=== PATIENT | female | born 1955 | race Caucasian/White ===

== ENCOUNTER 2017-03-17 17:15 | Observation (INO) | payer OTHER ==
[~2017-03-17] VITALS: Ht 175.3 cm; Wt 112.6 kg
[~2017-03-17 17:15] MED LIST: ABILIFY10 MG PO; ATIVAN1 MG PO; CARVEDILOL25 MG PO; COMBIVENT RESPIM4 GM INH; CYMBALTA30 MG PO; CYMBALTA60 MG PO; DIAZEPAM5 MG PO; GABAPENTIN300 MG PO; GEODON80 MG NG; GEODON80 MG PO; IPRATROPIU0.2 MG/1 M INH; KETOROLAC TROME10 MG PO; LAMICTAL200 MG PO; LAMOTRIGINE100 MG PO; LEVAQUIN500 MG PO; LISINOPRIL10 MG PO; LORAZEPAM0.5 MG PO; LYRICA75 MG PO; MACROBID 100 M100 MG PO; METFORMIN HCL1000 MG PO; MINIPRESS2 MG PO; NAPROSYN375 MG PO; NORCO 5-325 TA1 EACH PO; OMEPRAZOLE40 MG PO; OSTERA TABLET1 EACH PO; PAIN RELIEF500 M1 PO; PREDNISONE20 MG PO; SUMATRIPTAN SU100 MG PO; VALIUM5 MG PO; VERAPAMIL ER180 MG PO; VITAMIN D250000 UNIT PO
[2017-03-17] MEDS ORDERED: DULOXETINE HCL40 MG PO (17:53)
[2017-03-17] MEDS ORDERED: ABILIFY30 MG PO (17:54)
[2017-03-17] MEDS ORDERED: MOBIC7.5 MG PO (17:55)
[2017-03-17] MEDS ORDERED: CALCIUM600 MG PO (17:57)
[2017-03-17] MEDS ORDERED: NORCO 7.5-3251 EACH (17:58)
[2017-03-17] MEDS ORDERED: CYCLOBENZAPRINE5 MG PO (17:58)
[2017-03-17] MEDS ORDERED: VITAMIN D250000 UNIT PO (17:59)
--- NOTE | 2017-03-17 23:32 | NUR ---
PT ADMITTED TO ROOM 122 FROM ER @ 2255, VIA STRETCHER, PT AWAKE, A&OX3 IVF INFUSING W/O PROBLEMS, PT COOP WITH ADMIT QUESTIONS AND ASSESSMENT.INDEPENDENT, ABLE TO TUNR W/O PROBLESM, RETURN DEMONSTRATION OF CALL LIGHT DONE CORRECTLY, MEDICATED WITH 1 NORCO AT THIS TIME PER GENERALIZED PAIN 09/20
--- NOTE | 2017-03-18 03:31 | NUR ---
PATIENT REPORTED HEADACHE, UNCHANGED BY PRN PAIN MEDS. MD CONTACTED TO REQUEST HOME MED FOR HEADACHES PER PATIENT REQUEST. NEW ORDER RECIEVED. VERIFIED USING READ BACK METHOD.
--- NOTE | 2017-03-18 04:00 | NUR ---
PATIENT REPORTS HEADACHE PAIN, 10/10. PATIENT IS RESTING IN BED, APPEARS COMFORTABLE, AND IS PLESANT. INFORMED PATIENT THAT THE MED SHE REQUESTED WAS APPROVED BY THE MD BUT NOT AVAILABLE IN THE HOSPITAL. PATIENT AGREED TO TAKE PRN TYLENOL AT THIS TIME.
--- NOTE | 2017-03-18 04:15 | NUR ---
VITALS DONE AND CHARTED. GOT A WARM BLANKET PER PT REQUEST. PT NEEDS NOTHING ELSE AT THIS TIME. CALL LIGHT AND BEDSIDE TABLE WITHIN REACH.
--- NOTE | 2017-03-18 04:50 | NUR ---
PATIENT REPORTED NAUSEA. COOL WASH CLOTH APPLIED TO NECK. EMESIS BAG PROVIDED. PRN ZOFRAN. NO EMESIS AT THIS TIME. CALL LIGHT IN REACH.
--- NOTE | 2017-03-18 05:35 | NUR ---
PATIENT ARRIVED TO THE FLOOR THIS AM. INDEPENDENT IN THE ROOM. AAOX3. REPORTS PAIN IN ABD AND HEAD, PRN PAIN MEDS GIVEN. CLEAR LIQUIDS. NAUSEA X1, NO EMESIS. PRN ZOFRAN PROVIDED. IV FLUIDS INFUSING, SITE WNL.
--- NOTE | 2017-03-18 06:01 | NUR ---
VITALS AND I&OS DONE AND CHARTED. WATER WAS REFILLED. PT NEEDS NOTHING ELSE AT THIS TIME. CALL LIGHT AND BEDSIDE TABLE IN REACH.
--- NOTE | 2017-03-18 06:10 | NUR ---
pt awake, watching tv, denies c/o low blood sugars, pt has not been eating well or nothing prior to admission, cbg done 95, 12 OZ orange juice given. Primary RN Audrey to be notified
--- NOTE | 2017-03-18 06:13 | NUR ---
PATIENT REPORTS FEELING HOT. TURNED TEMP IN ROOM DOWN AND OPENED DOOE. PATIENT IS AFEBRILE. PATIENT REPORTS PAIN IS MORE CONTROLLED AT THIS TIME, 8/10 IN HER HEAD AND STOMACH. NO NEEDS AT THIS TIME.
--- NOTE | 2017-03-18 06:28 | NUR ---
Pt c/o h/a, r hip/hands, back 10/21 pain. Medicated wtih 1 tab Surfside. watching tv, c/o being siaphoretic. skin dry, warm, not hot, no resdness or flushing of facial features/ C/o chills, no chills ors involuntary body tremors noted, Nurse in room for about 20 minutes assessing pt. Pt on room air. Primary RN Audrey to be notified. No further c/o migraine like sx, lights on in room
--- NOTE | 2017-03-18 07:10 | NUR ---
BEDSIDE HANDOFF REPORT RECEIVED FROM CUTTING MACHINE OPERATOR RN. PT RESTING IN BED, STATES PAIN IS BETTER AFTER PAIN PILL. PT REQUESTING IMATREX, DISCUSSED WITH PT. PT DENIES OTHER NEEDS AT THIS TIME.
--- NOTE | 2017-03-18 09:30 | NUR ---
PT RESTING IN BED. PT RATING PAIN 6/10 TO ABD, STATES IT HAS IMPROVED AFTER RECEIVING PAIN MEDICATION THIS AM. PT ON ROOM AIR, DENIES SOB. LUNG SOUNDS CLEAR. PT DENIES NAUSEA, TOLERATED CLEAR LIQUID BREAKFAST, BOWEL TONES ACTIVE. PT DENIES NUMBNESS AND TINGLING, CMS INTACT, WITHOUT EDEMA. DISCUSSED IMATREX WITH PT, PT DECLINING TO TAKE IT AT THIS TIME. PT IS AMBULATING INDEPENDENT IN ROOM. VOIDING QS. PT DENIES OTHER NEEDS AT THIS TIME.
--- NOTE | 2017-03-18 09:45 | NUR ---
PT ADVANCED TO FULL LIQUID DIET, REQUESTING MILK SHAKE. PT DENIES OTHER NEEDS AT THIS TIME.
[2017-03-18] MEDS ORDERED: IMITREX100 MG PO (10:06)
[2017-03-18] MEDS ORDERED: CYCLOBENZAPRINE5 MG PO (10:09)
[2017-03-18] MEDS ORDERED: HYDROCODON-ACE1 EAC8 PO (10:12)
--- NOTE | 2017-03-18 10:36 | NUR ---
MED REC COMPLETE WITH [facility] REFILL HISTORY.
--- NOTE | 2017-03-18 12:45 | NUR ---
PT RESTING IN BED. PT RATING PAIN 5/10 TO ABD, STATES TOLERABLE AT THIS ITME. PT TOLERATING FULL LIQUID DIET, ADVANCED TO REGULAR DIET, DISCUSSED WITH PT. PT ON ROOM AIR, LUNG SOUNDS CLEAR. IV FLUIDS INFUSING NS AT 125 ML/HR. PT CONTINUES TO BE INDEPENDENT IN ROOM. NO ACUTE CHANGES, PT DENIES NEEDS AT THIS TIME.
--- NOTE | 2017-03-18 13:15 | NUR ---
PT CALLED REQUESTING NURSE. PT REPORT OF WHAT SHE THOUGHT TO BE BLOOD IN HER STOOL, STATES IT WAS BRIGHT RED. HAT PLACED IN TOILET, INSTRUCTED TO NOT FLUSH BOWEL MOVEMENT IF SHE HAS ANOTHER ONE. NOTIFIED OF PT REPORT. WILL CONTINUE TO MONITOR.
--- NOTE | 2017-03-18 13:25 | NUR ---
PT CALLED, HAD SMALL BOWEL MOVEMENT. ASSESSED STOOL, LIGHT BROWN IN COLOR, LOSE WITH SMALL AMOUNT OF MUCUS, WITHOUT BRIGHT RED BLOOD. MD NOTIFIED, NO NEW ORDERS AT THIS TIME.
--- NOTE | 2017-03-18 16:45 | NUR ---
PT RESTIGN IN BED, FAMILY AT BEDSIDE. PT STATES PAIN HAS IMPROVED, COMPLAINT OF STOMACH ACHE AFTER EATING SANDWICH, STATES "I THINK THE GU WAS TOO HEAVEY". PT GIVEN SCHEDULED CARAFATE. PT BLOOD PRESSURE CHECKED, 98/58, PT STATES SHE DOES FEEL SLIGHLY DIZZY. PT ON ROOM AIR, LUNG SOUNDS CLEAR. PT DENIES OTHER NEEDS AT THIS TIME.
--- NOTE | 2017-03-18 18:27 | NUR ---
PT ON ROOM AIR, LUNG SOUNDS CLEAR. PT PAIN CONTROLLED WITH PRN NORCO. PT WITH NAUSEA THIS AFTERNOON, ZOFRAN GIVEN. PT ADVANCED TO REGULAR DIET. PT INDEPENDENT IN ROOM. NS INFUSING AT 125 ML/HR. VOIDING QS. POSSIBLE DISCHARGE TOMORROW.
--- NOTE | 2017-03-18 19:25 | NUR ---
BEDSIDE REPORT RECEIVED FROM AVTAR DUNAWAY. PT LYING IN BED, IVF INFUSING AT 125 ML/HR. PT REPORTS PAIN 6.25/10 AT THIS TIME, STATES THIS IS GOOD FOR HER. PT DENIES NAUSEA. CALL LIGHT GIVEN TO PT. PT'S LAMOTRIGINE TAKEN FROM BEDSIDE TABLE, DR. CEBALLOS NOTIFIED OF MED IN PT ROOM, PT REQUESTING TO TAKE THIS MED THIS EVENING, MD TO ORDER. MEDICATION IN PT'S BIN.
--- NOTE | 2017-03-18 19:55 | NUR ---
DR. CEBALLOS IN PT ROOM ASSESSING PT.
--- NOTE | 2017-03-18 19:58 | NUR ---
Dr Simpson in room examining pt. IVF dc'd at this time as per MDs orders. Pt medicated wtih 1 Tylenol 500mg po and dicyclomine hcl 20mg po c/o 10/21 abd pain
--- NOTE | 2017-03-18 20:04 | NUR ---
VERBAL ORDER FROM DR. CEBALLOS TO D/C PT'S IVF AT THIS TIME. FLUIDS STOPPED.
--- NOTE | 2017-03-18 20:11 | NUR ---
NURSE IN ROOM
[2017-03-18] MEDS ORDERED: DICYCLOMINE HCL10 MG PO (20:23)
[2017-03-18] MEDS ORDERED: FAMOTIDINE20 MG PO ×2 (20:25→20:26)
[2017-03-18] MEDS ORDERED: SUCRALFATE1 GM/10 ML PO (20:27)
[2017-03-18] MEDS ORDERED: LAMICTAL200 MG PO (20:30)
--- NOTE | 2017-03-18 22:30 | NUR ---
ANSWERED PT CALL LIGHT, PT REPORTING EAR ACHE, PAIN IN RLQ, REQUESTING PAIN MEDICATIONS. RN RAMÓN TO ADMINISTER PRN NORCO PO AT THIS TIME.
--- NOTE | 2017-03-18 22:41 | EKG ---
[facility] [address] [place] [address] Signed Normal sinus rhythm Normal ECG No previous ECGs available Confirmed by OMER CEBALLOS MD ([id number]) on 03/18/2017 10:41:02 PM Electronically Signed By: OMER CEBALLOS MD 03/18/17 2241 PATIENT NAME: LOCKWOODTMIN Electrocardiogram DATE OF : 53 PHYSICIAN: OMER CEBALLOS MD REPORT #: [id number] REPORT IS CONFIDENTIAL AND NOT TO BE RELEASED WITHOUT AUTHORIZATION
--- NOTE | 2017-03-18 23:00 | NUR ---
PT ASSESSMENT COMPLETE. EXPIRATORY WHEEZE HEARD BILATERALLY LOWER LUNGS. PT COMPLAINS OF 8/10 PAIN IN RLQ, AND 5/10 EAR ACHE. NORCO PO PRN HAS BEEN ADMINISTERED. PT IS ALERT, AND ORIENTED, DENIES NAUSEA AT THIS TIME. PT GIVEN SNACK OF SUGAR FREE JELLO, ICE WATER. CALL LIGHT IN REACH. PT PLEASANT AND WITH NO ADDITIONAL REQUESTS.
--- NOTE | 2017-03-19 00:44 | NUR ---
PT SLEEPING, EYES CLOSED, RR 12. CALL LIGHT IN REACH.
--- NOTE | 2017-03-19 02:23 | NUR ---
BROUGHT PT ICED COFFEE REQUESTED, SPO2 AT 98%, PT HAS NO ADDITIONAL REQUESTS AT THIS TIME, SITTING UP IN BED, CALL LIGHT IN REACH.
--- NOTE | 2017-03-19 02:30 | NUR ---
CHECKED ON PT, PT SLEEPING, EYES CLOSED, VISIBLE CHEST RISE. CALL LIGHT NEXT TO PT.
--- NOTE | 2017-03-19 03:04 | NUR ---
ANSWERED PT CALL LIGHT, PT REPORTING 7.5-8/10 KAUR. ADMINISTERED PRN TYLENOL 500 MG PO, BROUGHT PT FRESH ICE WATER. PT ASSESSMENT COMPLETE. PT'S LUNGS SOUND CLEAR THROUGHOUT ALL LOBES, NO WHEEZES HEARD. PT ON ROOM AIR, AWAKE, TEXTING FRIEND. PT DENIES NAUSEA. CONTINUES TO HAVE PAIN IN RLQ, TENDER AND GUARDED. BOWEL TONES ARE ACTIVE THROUGHOUT ABDOMEN. URINE HAT EMPTIED. CALL LIGHT IN REACH. PT REQUESTS LIGHTS TO BE ON.
--- NOTE | 2017-03-19 04:33 | NUR ---
ANSWERED CALL LIGHT, PT REPORTING PAIN IN HIP AND STOMACH, BROUGHT PT ICE PACK NORCO PRN NOT AVAILABLE AT THIS TIME. PT VERBALIZED UNDERSTANDING. CALL LIGHT IN REACH.
--- NOTE | 2017-03-19 05:09 | NUR ---
ANSWERED CALL LIGHT, PT REPORTS PAIN 9/10 IN RIGHT HIP. PT STATES PAIN IS CHRONIC. ADMINISTERED PRN NORCO PO, GAVE PT MORE ICE WATER. PT HAS NO ADDITIONAL REQUESTS, WILL CONTINUE TO MONITOR. CALL LIGHT IN REACH.
--- NOTE | 2017-03-19 05:23 | NUR ---
ANSWERED PT CALL LIGHT, ADMINISTERED PRN BENTYL FOR STOMACH DISCOMFORT, EDUCATION PROVIDED. PT HAS NO ADDITIONAL REQUESTS AT THIS TIME, CALL LIGHT IN REACH.
--- NOTE | 2017-03-19 05:52 | NUR ---
PT SLEPT AT START OF SHIFT, AWAKE FOR MOST OF SUPERVISOR RECORD PRESS HOURS. PT HAS REQUESTED PRN PAIN MEDICATIONS THROUGHOUT SHIFT FOR HIP PAIN, EAR ACHE, HEAD ACHE, AND ABD PAIN RECEIVING PRN NORCO, PRN BENTYL, AND PRN TYLENOL. PT HAS DENIED NAUSEA. LUNGS HAVE SOUNDED CLEAR THIS MORING, WHEEZES HEARD AT START OF SHIFT BILATERALLY IN BASES. PT SALINE LOCKED. SUFFICIENT URINE OUTPUT.
--- NOTE | 2017-03-19 06:21 | NUR ---
IN PT ROOM FOR MULTICRAFT OPERATOR, PT REPORTS PAIN 6/10 IN ABD, HIP, "IMPROVED". PT HAS NO ADDITIONAL REQUESTS AT THIS TIME. CALL LIGHT IN REACH.
--- NOTE | 2017-03-19 07:15 | NUR ---
BEDSIDE HANDOFF REPORT RECEIVED FROM SAMPLE SEWER RN. PT RESTING IN BED. PT REQUESTING FRESH WATER, PROVIDED. PT SALINE LOCKED. PT ON ROOM AIR. PT DENIES NEEDS AT THIS TIME.
--- NOTE | 2017-03-19 08:30 | NUR ---
PT COMPLAINT OF MIGRAINE, REQUESTIN IMITREX, NO ORDER, CALLED, TELEPHONE ORDER FOR 100 MG IMITREX PO ONCE. PT ON ROOM AIR, LUNG SOUNDS CLEAR. PT TOLERATING REGUALR DIET, DENIES NAUSEA, DISCUSSED DIET AND CURRENT ILLNESS. PT UP INDEPENDENT IN ROOM. PT BLOOD PRESSURE LOW 98/58, VERAPAMIL HELD, NOTIFIED. PT COMPLAINT OF SLIGHT DIZZINESS, HAS HAD RECENTLY, DISCUSSED WITH PT NEED TO FOLLOW UP WITH PCP ABOUT BLOOD PRESSURE MEDICATIONS. BOWEL TONES ACTIVE. PT WITHOUT EDEMA, CMS INTACT. PT DENIES OTHER NEEDS AT THIS TIME. DISCUSSED DISCHARGE THIS AM, PT CALLING FOR [facility]IDE.
--- NOTE | 2017-03-19 10:08 | NUR ---
PT COMPLAINT OF NAUSEA, PT STATES SHE THINKS IT MAY BE RELATED TO MIGRAINE HEADAHCE. IV ZOFRAN GIVEN. PT CALLED [facility]IDE FOR DISCHARGE.
--- NOTE | 2017-03-19 10:30 | NUR ---
DISCHARGE INSTRUCTIONS COMPLETED WITH PT. IV CATH REMOVED. PT REQUESTING PAIN MEDICATION, RATING PAIN 7/10, GIVEN 1 TAB NORCO.
--- NOTE | 2017-03-19 10:36 | NUR ---
PT'S VITALS WERE TAKEN AND PT WAS DISCHARGED TO HOME.
== END 2017-03-19 10:35 | disposition home or self-care (01) ==
LOC: ED 17:15 → MS 17:16
PROVIDERS: ADMIT Internal Medicine
DX: K29.80 Duodenitis without bleeding (principal); T39.395A Adverse effect of other nonsteroidal anti-inflammatory drugs [NSAID], initial encounter; E86.0 Dehydration; I10 Essential (primary) hypertension; E11.9 Type 2 diabetes mellitus without complications; F25.0 Schizoaffective disorder, bipolar type; F41.9 Anxiety disorder, unspecified; M79.7 Fibromyalgia; E87.2 Acidosis; M54.9 Dorsalgia, unspecified; G89.29 Other chronic pain; Z88.8 Allergy status to other drugs, medicaments and biological substances; Z79.84 Long term (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 of oral 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 drugs; Z79.891 Long term (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 of opiate analgesic; Z79.899 Other long term (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
CPT/HCPCS: 71045; 74177; 80053; 81001; 82803; 83605; 83690; 84484; 85025; 85610; 93005; 93010; 96361; 96365; 96372; 96375; 96376; 99285; G0378; J1650; J2405; J2543; J3010; J7030; Q9967

== ENCOUNTER 2017-11-09 01:14 | Emergency (ER) | payer OTHER ==
[~2017-11-09] VITALS: Ht 175.3 cm; Wt 112.5 kg
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
--- OUTSIDE RECORDS SUMMARY | ~2017-11-09 | XMS | Clinical Summary ---
Demographics + + + | Address | [address] | | | [place] [address] | + + + | Home Phone | | + + + | Preferred Language | Unknown | + + + | Marital Status | Single | + + + | Jew Affiliation | Unknown | + + + | Race | Unknown | + + + | Ethnic Group | Unknown | + + + Author + + + | Author | [facility] | + + + | Organization | [facility] | + + + | Address | Unknown | + + + | Phone | Unavailable | + + + Support + + +---------+ + | Name | Relationship | Address | Phone | + + +---------+ + | Christina Muhammad | ECON | Unknown | | + + +---------+ + Care Team Providers + +------+ + | Care District Branch Manager Name | Role | Phone | + +------+ + | Wicho Starkey MD | PP | Unavailable | + +------+ + Allergies No Known Allergies Current Medications + + +-------+---------+------+------+-------+ | Prescription | Sig. | Disp. | Refills | Star | End | Statu | | | | | | t | Date | s | | | | | | Date | | | + + +-------+---------+------+------+-------+ | carvedilol (COREG) | Take 25 mg by mouth | | | | | Activ | | 25 MG tablet | 2 (two) times daily | | | | | e | | | with meals. | | | | | | + + +-------+---------+------+------+-------+ | cetirizine | Take 5 mg by mouth | | | | | Activ | | (ZYRTEC) 5 MG tablet | daily. | | | | | e | + + +-------+---------+------+------+-------+ | duloxetine | Take 60 mg by mouth | | | | | Activ | | (CYMBALTA) 60 MG | daily. | | | | | e | | capsule | | | | | | | + + +-------+---------+------+------+-------+ | doxazosin | Take 1 mg by mouth | | | | | Activ | | (CARDURA) 1 MG | nightly. | | | | | e | | tablet | | | | | | | + + +-------+---------+------+------+-------+ | estradiol | Take 1 mg by mouth | | | | | Activ | | (ESTRACE) 1 MG | daily. | | | | | e | | tablet | | | | | | | + + +-------+---------+------+------+-------+ | IRON PO | Take 300 mg by mouth | | | | | Activ | | | daily. | | | | | e | + + +-------+---------+------+------+-------+ | ziprasidone | Take 80 mg by mouth | | | | | Activ | | (GEODON) 80 MG | daily with | | | | | e | | capsule | breakfast. | | | | | | + + +-------+---------+------+------+-------+ | ziprasidone | Take 160 mg by mouth | | | | | Activ | | (GEODON) 80 MG | nightly. | | | | | e | | capsule | | | | | | | + + +-------+---------+------+------+-------+ | lamotrigine | Take 200 mg by mouth | | | | | Activ | | (LAMICTAL) 200 MG | 2 (two) times | | | | | e | | tablet | daily. | | | | | | + + +-------+---------+------+------+-------+ | metformin | Take 1,000 mg by | | | | | Activ | | (GLUCOPHAGE) 1000 MG | mouth 2 (two) times | | | | | e | | tablet | daily with meals. | | | | | | + + +-------+---------+------+------+-------+ | naproxen | Take 375 mg by mouth | | | | | Activ | | (NAPROSYN) 375 MG | 2 (two) times daily | | | | | e | | tablet | with meals. | | | | | | + + +-------+---------+------+------+-------+ | omeprazole | Take 20 mg by mouth | | | | | Activ | | (PRILOSEC) 20 MG | daily. | | | | | e | | capsule | | | | | | | + + +-------+---------+------+------+-------+ | | Take 1 tablet by | | | | | Activ | | hydrocodone-acetamin | mouth every 4 (four) | | | | | e | | ophen (VICODIN) | hours as needed. | | | | | | | 5-500 MG per tablet | | | | | | | + + +-------+---------+------+------+-------+ | | Take 1 tablet by | | | | | Activ | | HYDROcodone-acetamin | mouth every 6 (six) | | | | | e | | ophen (NORCO) 5-325 | hours as needed for | | | | | | | MG per tablet | Pain. | | | | | | + + +-------+---------+------+------+-------+ | ARIPiprazole | Take 10 mg by mouth | | | | | Activ | | (ABILIFY) 10 MG | daily. | | | | | e | | tablet | | | | | | | + + +-------+---------+------+------+-------+ Active Problems + + + | Problem | Noted Date | + + + | Paranoid schizophrenia, chronic condition | 11/11/2011 | + + + | Bipolar disorder, unspecified | 11/11/2011 | + + + | Seizure disorder (HCC) | 11/11/2011 | + + + | Methamphetamine abuse | 11/11/2011 | + + + | NSTEMI (non-ST elevated myocardial infarction) | 11/11/2011 | + + + | Hyposmolality and/or hyponatremia | 11/11/2011 | + + + | Leucocytosis | 11/11/2011 | + + + | Old myocardial infarction | 11/11/2011 | + + + + + | Overview: NSTEMI associated with methamphetamine abuse, | | nuclear stress test negative | + + + +---+ | Cardiac murmur, previously undiagnosed | | + +---+ | Lumbar spinal stenosis | | + +---+ | Hypertension | | + +---+ | Fibromyalgia | | + +---+ Family History + + +------+ + | Medical History | Relation | Name | Comments | + + +------+ + | Seizures | Daughter | | | + + +------+ + | Stroke | Daughter | | questionable | + + +------+ + | Heart attack | Father | | | + + +------+ + | Cancer | Mother | | | + + [...] + + | Father | | | MD | | | | (Age | | | | | 65) | | + +------+ + + | Mother | | | cancer, type unknown | | | | (Age | | | | | 72) | | + +------+ + + | Sister | | Alive | | + +------+ + + | Son | | Alive | | + +------+ + + Social History + +-------+ +--------+ + | Tobacco Use | Types | Packs/Day | Years | Date | | | | | Used | | + +-------+ +--------+ + | Former Smoker | | 1 | 20 | Quit: 01/31/2014 | + +-------+ +--------+ + + +---+---+---+ | Smokeless Tobacco: | | | | | Never Used | | | | + +---+---+---+ + + | Tobacco Cessation: Ready to Quit: No | + + + + +---------+ + | Alcohol Use | Drinks/We | oz/Week | Comments | | | ek | | | + + +---------+ + | No | | | | + + +---------+ + + + + | Sex Assigned at | Date Recorded | | | | + + + | Not on file | | + + + Last Filed Vital Signs + + + + | Vital Sign | Reading | Time Taken | + + + + | Blood Pressure | 104/66 | 04/09/2014 10:19 AM PST | + + + + | Pulse | 77 | 04/09/2014 10:19 AM PST | + + + + | Temperature | 36.6 C (97.9 F) | 11/12/2011 11:44 AM PDT | + + + + | Respiratory Rate | 18 | 11/12/2011 11:44 AM PDT | + + + + | Oxygen Saturation | 94% | 04/09/2014 10:19 AM PST | + + + + | Inhaled Oxygen | - | - | | Concentration | | | + + + + | Weight | 102.5 kg (226 lb) | 04/09/2014 10:19 AM PST | + + + + | Height | 175.3 cm (5' 9") | 04/09/2014 10:19 AM PST | + + + + | Body Mass Index | 33.37 | 04/09/2014 10:19 AM PST | + + + + Plan of Treatment + + + + + | Health Maintenance | Due Date | Last Done | Comments | + + + + + | Vaccine: | | | | | Dtap/Tdap/Td (1 - | 4 | | | | Tdap) | | | | + + + + + | Cervical Cancer | | | | | Screening (Pap) | 5 | | | + + + + + | Vaccine: Zoster (1 | | | | | of 2) | 5 | | | + + + + + | Vaccine: Influenza | | | | | (#1) | 8 | | | + + + + + Results Not on filefrom Last 3 Months Insurance + +--------+ +------+-------+ + | Payer | Benefi | Subscriber | Type | Phone | Address | | | t Plan | ID | | | | | | / | | | | | | | Group | | | | | + +--------+ +------+-------+ + | MEDICAID | [place] | [id number] | | | [address] | | | N | | | | [place] | | | [place] | | | | [phone] | | | [employer] | | | | | + +--------+ +------+-------+ + + +--------+ +--------+ + + | Guarantor Name | Accoun | Relation to | Date | Phone | Billing Address | | | t Type | Patient | of | | | | | | | | | | + +--------+ +--------+ + + | LUZ MARIA LOCKWOOD | Person | Self [birth year] Home: | [address] [place] [address] | | | al/Fam | | 1956 | [phone] | [address] [place] | | | [place] | | | [phone] | [phone] | + +--------+ +--------+ + +
--- OUTSIDE RECORDS SUMMARY | ~2017-11-09 | XMS | Encounter Summary ---
Demographics + + + | Address | [address] [facility] [address] | | | [place] [address] | + + + | Home Phone [...] | [facility] | | | and [place] | [...] Providers + +------+ + | Care Assistant Grocery Name | Role | Phone | + +------+ + | Abimael Devlin MD | PCP | | + +------+ + Encounter Details +--------+ + + + + | Date | Type | Department | Care Team | Description | +--------+ + + + + | 10/17/ | [facility] | [facility] | Andre Caballero | Right hip pain | | 2018 | Encounter | [facility] | MD [address] | | | | | [address] | [place] | | | | | [place] | [address] | | | | | [address] | | | | | | [phone] | | | +--------+ + + + [...] + + + as of this encounter Medications at Time of Discharge + + +--------+---------+ + + | Medication | Sig. | Disp. | Refills | Start | End Date | | | | | | Date | | + + +--------+---------+ + + | albuterol (PROAIR | Inhale 2 puffs into | | | | | | HFA) 90 mcg/puff | the lungs every 6 | | | | | | inhaler | hours as needed for | | | | | | | Wheezing. | | | | | + + +--------+---------+ + + | ARIPiprazole | take 1 tablet by | | 0 | 10/05/19 | | | (ABILIFY) 30 MG | mouth once daily | | | 18 | | | tablet | | | | | | + + +--------+---------+ + + | cyclobenzaprine | | | 0 | 10/05/19 | | | (FLEXERIL) 5 MG | | | | 18 | | | tablet | | | | | | + + +--------+---------+ + + | dicyclomine | | | 0 | 10/05/19 | | | (BENTYL) 10 mg | | | | 18 | | | capsule | | | | | | + + +--------+---------+ + + | dicyclomine | Take 20 mg by mouth | | | | | | (BENTYL) 20 MG | every 6 hours. | | | | | | tablet | | | | | | + + +--------+---------+ + + | DULoxetine | One capsule by mouth | | | 08/20/19 | | | (CYMBALTA) 60 MG | once daily | | | 12 | | | capsule | | | | | | + + +--------+---------+ + + | DULoxetine | | | 0 | 10/17/19 | | | (IRENKA) [address] | | | | 18 | | | capsule | | | | | | + + +--------+---------+ + + | ergocalciferol | Take 50,000 Units by | | 0 | 07/29/19 | | | (VITAMIN D-2) 50,000 | mouth Once a week. | | | 16 | | | units capsule | | | | | | + + +--------+---------+ + + | | take 1 tablet by | | 0 | 09/16/19 | | | hydroCHLOROthiazide | mouth once daily IN | | | 18 | | | 25 mg tablet | THE MORNING | | | | | + + +--------+---------+ + + | | take 1 tablet by | | 0 | 10/14/19 | | | HYDROcodone-acetamin | mouth four times a | | | 18 | | | ophen (NORCO) 10-325 | day if needed for | | | | | | mg per tablet | pain | | | | | + + +--------+---------+ + + | lamotrigine | One tablet by mouth | | | 08/20/19 | | | (LAMICTAL) 200 MG | morning, Two tablets | | | 12 | | | tablet | by mouth evening | | | | | + + +--------+---------+ + + | lisinopril | Take 10 mg by mouth | | 0 | 05/09/20 | | | (PRINIVIL, ZESTRIL) | Daily. | | | 16 | | | 10 mg tablet | | | | | | + + +--------+---------+ + + | LORazepam (ATIVAN) | Take 0.5 mg by mouth | | 0 | 06/28/19 | | | 0.5 mg tablet | Daily. | | | 16 | | + + +--------+---------+ + + | LORazepam (ATIVAN) | take 1/2 to 1 tablet | | 0 | 09/16/19 | | | 1 mg tablet | by mouth three | | | 18 | | | | times a day if | | | | | | | needed for SEVER | | | | | | | PANIC | | | | | + + +--------+---------+ + + | Magnesium 400 MG | Take by mouth. | | | | | | CAPS | | | | | | + + +--------+---------+ + + | metformin | Take 1,000 mg by | | | 08/20/19 | | | (GLUCOPHAGE) 1000 MG | mouth 2 times daily. | | | 12 | | | tablet | | | | | | + + +--------+---------+ + + | Multiple | Take 1 tablet by | | | | | | Vitamins-Minerals | mouth Daily. | | | | | | (CENTRUM SILVER PO) | | | | | | + + +--------+---------+ + + | naproxen | Take 500 mg by mouth | | | | | | (NAPROSYN) 500 mg | 2 times daily (with | | | | | | tablet | breakfast & | | | | | | | dinner). | | | | | + + +--------+---------+ + + | prazosin | | | 0 | 10/05/19 | | | (MINIPRESS) 1 mg | | | | 18 | | | capsule | | | | | | + + +--------+---------+ + + | promethazine | Take 1 tablet by | 56 | 0 | 08/24/19 | | | (PHENERGAN) 25 mg | mouth every 4 hours | tablet | | 17 | | | tablet | as needed. | | | | | + + +--------+---------+ + + | SUMAtriptan | Take 100 mg by mouth | | | | | | (IMITREX) 100 mg | as needed for | | | | | | tablet | Migraine. | | | | | + + +--------+---------+ + + | UNABLE TO FIND | Med Name: Resmed | | | | | | | AirSense 10 autoset | | | | | | | CPAP: 9-20cm | | | | | + + +--------+---------+ + + | verapamil (CALAN | take 1 tablet by | | 0 | 10/14/19 | | | SR) 180 mg SR tablet | mouth once daily | | | 18 | | + + +--------+---------+ + + as of this encounter Plan of Treatment +--------+---------+ + + + | Date | Type | Specialty | Care Team | Description | +--------+---------+ + + + | 01/05/ | Office | Sleep Medicine | Sundeep aB PA | | | 2017 | Visit | | [address] | | | | | | [place] | | | | | | [id number] | | | | | | | | +--------+---------+ + + + as of this encounter Procedures + +--------+ [...] section. | + +--------+ + + + in this encounter Results XR Hip Right 2-3 Views (10/17/2017827) + + + | Narrative | Performed [...] | + + | Right hip pain | + + | Pain in joint, pelvic region and thigh | + +"
--- OUTSIDE RECORDS SUMMARY | ~2017-11-09 | XMS | Clinical Summary ---
Demographics + + + | Address | [address] [facility] [address] | | | [place] [address] | + + + | Home Phone [...] | [facility] | | | and [place] | [...] Team Providers + +------+ + | Care Bobbin Cleaner Hand Name | Role | Phone | [...] | | 08/0 | Disco | | [facility] | | | | | 6/20 | [...] + + | Paranoid schizophrenia, chronic condition ([facility]) | 11/11/2011 | + + + | Seizure disorder ([facility]) | 11/11/2011 | + + + | [...] of suicidal ideation. Goes to | | [facility]. Psychiatric meds prescribed by Dr Zhu Name [...] 2017 | Visit | | [address] | | | | | | [place] | | | | | | [address] | | | | | | | [...] | [employer] | [facility] | [id number] | Medica | [phone] | | [...] | [place] | | | [phone] | [phone] | + +--------+ +--------+ + +
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
--- OUTSIDE RECORDS SUMMARY | ~2017-11-09 | XMS | Encounter Summary ---
Demographics + + + | Address | [address] [facility] [address] | | | [place] [address] | + + + | Home Phone [...] | Author | [facility] | | | and [place] | + + + | Organization | [facility] | | | and [place] | + + + | Address | Unknown | + + + | Phone | Unavailable | + + + Support + + +---------+ + | Name | Relationship | Address | Phone | + + +---------+ + | Waqar Campuznao | ECON | Unknown | | + + +---------+ + Care Team Providers + +------+ + | Care Hydraulic Design Engineer Name | Role | Phone | [...] Physical | Diagnoses | [place] | [place] | | | Services | Medicine and | Right hip | Andre Serrato | Physiatry | | | Required | Rehabilitatio | pain | [address] | | | | n | Trochanteric | [address] | [place], | | | | | bursitis of | [place], | [place] | | | | | right hip | [place] [address] | [address] | | | | | Primary | Phone: | Phone: | | | | | osteoarthrit | [phone] | [phone] | | | | | is of right | Fax: | Fax: | | | | | hip | [phone] | [phone] | +--------+ + + + + + Encounter Details +--------+ + + + + | Date | Type | Department | Care Team | Description | +--------+ + + + + | 10/28/ | Orders Only | [facility] | Andre Caballero | Right hip pain | | 2018 | | ORTHOPEDIC SURGERY | MD Rojelio [address] | (Primary Dx); | | | | [address] | [place], [place] | Trochanteric | | | | [place], [place] | [address] | bursitis of right | | | | [address] | | hip; Primary | | | | [phone] | | osteoarthritis of | | | [...] + + + as of this encounter Plan of Treatment +--------+---------+ + + + | Date | Type | Specialty | Care Team | Description | +--------+---------+ + + + | 01/05/ | Office | Sleep Medicine | Sundeep Ba PA | | | 2018 | Visit | | [address] | | | | | | [place] | | | | | | [address] | | | | | | | | +--------+---------+ + + + + +--------+ + + | Name | Priori | Associated Diagnoses | Order Schedule | | | ty | | | + +--------+ + + | * [facility] | Routin | Right hip pain | Ordered: 10/28/2017 | | Referral | e | Trochanteric | | | | | bursitis of right | | | | | hip Primary | | | | | osteoarthritis of | | | | | right hip | | + +--------+ + + as of this encounter Visit [...] osteoarthrosis, pelvic region and thigh | + +"
--- OUTSIDE RECORDS SUMMARY | ~2017-11-09 | XMS | Clinical Summary ---
Demographics + + + | Address | [address] | | | [place] [address] | + + + | Home Phone | | + + + | Preferred Language | Unknown | + + + | Marital Status | Single | + + + | Christianity Affiliation | Unknown | + + + | Race | Unknown | + + + | Ethnic Group | Unknown | + + + Author + + + | Author | [facility] | + + + | Organization | [facility] | + + + | Address | Unknown | + + + | Phone | Unavailable | + + + Support + + +---------+ + | Name | Relationship | Address | Phone | + + +---------+ + | Christina Muhammad | ECON | Unknown | | + + +---------+ + Care Team Providers + +------+ + | Care Sld Educational Aide Name | Role | Phone | [...] + + | Father | | | [place] | | | | (Age | | [...] +------+-------+ + | MEDICAID | [place] | [id number] | | | [address] | | | N | | | | [place] | | | [place] | | | | [address] | | | LOSS PREVENTION AGENT | | | | | + [...] | Self [birth year] | Home: | [address] [place] [address] | | | al/Fam | | [phone] | [phone] | [address] [place] | | | juventino | | | [phone] | + +--------+ +--------+ + +
--- OUTSIDE RECORDS SUMMARY | ~2017-11-09 | XMS | Encounter Summary ---
Demographics + + + | Address | [address] [facility] [address] | | | [place] [address] | + + + | Home Phone [...] | Organization | [facility] | | | and [place] [...] Providers + +------+ + | Care Hearing Aide Technician Name | Role | Phone | + +------+ + | Abimael Devlin MD | PCP | | + +------+ + Encounter Details +--------+ + + + + | Date | Type | Department | Care Team | Description | +--------+ + + + + | 10/17/ | [facility] | [facility] | Andre Caballero | Right hip pain | | 2018 | Encounter | [facility] | MD [address]jel[address] | | | | | [address] [place] | [place] | | | | | [place] | [address] | | | | | [address] | | | | | | [phone] | | | +--------+ + + + [...] [place] | | | | | | [id number] | | | | | | | [...]
--- OUTSIDE RECORDS SUMMARY | ~2017-11-09 | XMS | Encounter Summary ---
Demographics + + + | Address | [address] [facility] [address] | | | [place] [address] | + + + | Home Phone [...] Organization | [facility] | | | and [place] [...] Team Providers + +------+ + | Care Cigar Sorter Name | Role | Phone | [...] | pain | [address] | [address] | | | | n | Trochanteric | [address] | [place], | | | | | bursitis of | [place], | [place] | | | | | right hip | [place] [address] | [address] | | | | | Primary | Phone: | Phone: | | | | | osteoarthrit | [phone] | [phone] | | | | | is of right | Fax: | Fax: | | | | | hip | [phone] | [phone] | +--------+ + + + + + [...] Dx); | | | | [address] | [place], [place] | Trochanteric | | | | [place], [place] | [address] | bursitis of right | | | | [address] | | hip; Primary | | | | [phone] | | osteoarthritis of | | | [...] 2018 | Visit | | [address] | | | | | | [place] | | | | | | [address] | | | | | | | | +--------+---------+ + + + + +--------+ + + | Name | Priori | Associated Diagnoses | Order Schedule | | | ty | | | + +--------+ + + | * [facility] | Routin | Right [...]
[~2017-11-09 01:14] MED LIST changes: +ABILIFY30 MG PO; +CALCIUM600 MG PO; +CYCLOBENZAPRINE5 MG PO; +DICYCLOMINE HCL10 MG PO; +DULOXETINE HCL40 MG PO; +FAMOTIDINE20 MG PO; +HYDROCODON-ACE1 EAC8 PO; +IMITREX100 MG PO; +MOBIC7.5 MG PO; +NORCO 7.5-3251 EACH; +SUCRALFATE1 GM/10 ML PO
[2017-11-09] MEDS ORDERED: LORAZEPAM1 MG PO (01:29)
[2017-11-09] MEDS ORDERED: LISINOPRIL10 MG PO (01:29)
[2017-11-09] MEDS ORDERED: MINIPRESS1 MG PO (01:30)
[2017-11-09] MEDS ORDERED: HYDROCHLOROTHIA25 MG PO (01:30)
== END 2017-11-09 04:07 | disposition home or self-care (01) ==
LOC: ED 01:14
DX: R10.12 Left upper quadrant pain (principal); R10.11 Right upper quadrant pain; I10 Essential (primary) hypertension; E11.9 Type 2 diabetes mellitus without complications; F32.9 Major depressive disorder, single episode, unspecified; F43.10 Post-traumatic stress disorder, unspecified; F17.200 Nicotine dependence, unspecified, uncomplicated; Z88.5 Allergy status to narcotic agent; Z88.8 Allergy status to other drugs, medicaments and biological substances; Z79.899 Other long term (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
CPT/HCPCS: 74176; 80053; 81001; 83690; 85025; 96374; 96375; 99284; J1170; J2405; J7030

== ENCOUNTER 2018-05-22 09:11 | Emergency (ER) | payer OTHER ==
[~2018-05-22] VITALS: Ht 175.3 cm; Wt 112.6 kg
[~2018-05-22 09:11] MED LIST changes: +HYDROCHLOROTHIA25 MG PO; +LORAZEPAM1 MG PO; +MINIPRESS1 MG PO
--- OUTSIDE RECORDS SUMMARY | 2018-05-22 09:16 | XMS ---
PreManage Notification: TIM LOCKWOOD Security Hand Compositor Events No recent Security Events currently on file CRITERIA MET - [facility] CARE PROVIDERS NgAviva carlosn Parole Supervisor/Pick Pulling Machine Tender 07/12/2016-Current PHONE: [phone] Sherry Gibson Parole Supervisor/Pick Pulling Machine Tender 07/12/2016-Current PHONE: [phone] Sherry Gibson Primary Care 07/12/2016-Current PHONE: [phone] Fernie Higgins MD PHONE: Unknown [facility] Other Current Orthopedic Surgery \T\ Fracture Clinic PHONE: Unknown Delgado has no Care Guidelines for this patient. [place] VISIT COUNT (12 MO.) 1 Jeanette Lawson M.C. 2 CHRISTA Rivera TOTAL 3 NOTE: Visits indicate total known visits. ED/UCC VISIT TRACKING (12 MO.) 05/22/2018 09:12 CHRISTA Burrell TYPE: Emergency COMPLAINT: - R ARM PAIN/INJURY 03/27/2018 12:22 [facility] TYPE: Emergency DIAGNOSES: - back pain - Sciatica, unspecified side 11/09/2017 01:15 CHRISTA Burrell TYPE: Emergency COMPLAINT: - ABD CRAMPING DIAGNOSES: - Allergy status to narcotic agent status - Allergy status to other drugs, medicaments and biological substances status - Nicotine dependence, unspecified, uncomplicated - Left upper quadrant pain - Right upper quadrant pain - Post-traumatic stress disorder, unspecified - Type 2 diabetes mellitus without complications - Major depressive disorder, single episode, unspecified - 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
== END 2018-05-22 09:27 | disposition home or self-care (01) ==
LOC: ED 09:11
DX: M79.601 Pain in right arm (principal)

== ENCOUNTER 2018-06-13 19:27 | Emergency (ER) | payer OTHER ==
[~2018-06-13] VITALS: Ht 175.3 cm; Wt 116.7 kg
--- OUTSIDE RECORDS SUMMARY | ~2018-06-13 | XMS | Encounter Summary ---
Demographics + + + | Address | [address] [facility] [address] | | | [place] [address] | + + + | Home Phone | | + + + | Preferred Language | Unknown | + + + | Marital Status | | + + + | Zoroastrian Affiliation | 1013 | + + + | Race | Unknown | + + + | Ethnic Group | Unknown | + + + Author + + + | Author | [facility] | | | and [place] | + + + | Organization | [facility] | | | and [...] Team Providers + +------+ + | Care Transport Rn Name | Role | Phone | + [...] + + | 06/07/ | Office | [facility] | Andre Caballero | Chronic pain of both | | 2019 | Visit | ORTHOPEDIC SURGERY | MD Rojelio [address] [place] [address] | knees (Primary Dx); | | | | [address] [facility] | [place] SHANE[place] | Primary | | | | [place], [place] | [address] | osteoarthritis of | | | | [address] | | both knees | | | | [phone] | | | +--------+---------+ + + + [...] | 120.2 kg (265 lb) | 06/07/2018 1602 PDT | + + + + | Height | 175.3 cm (5' 9") | 06/07/2018 1602 PDT | + + + + | Body Mass Index | 39.13 | 06/07/2018 1602 PDT | + + + + in this encounter Progress Notes Andre Caballero MD - 06/07/2018 1600 PDTDerosario returns for a complaint of bilateral knee pain. She has a 5-year history of bilateral knee pain. She received bilateral knee i njections from Dr. Eddie dent 4 years ago which helped for a number of months. She now has had several months of increasingly severe pain and would like to have her knees agusto njected. She states that she has been nicotine free for 2 weeks. She also has been able t o lose approximately 5 pounds over the past [...] We will plan to see Luz Maria zamzam in the futur e as needed.in this encounter Plan of Treatment +--------+---------+ + + + | Date | Type | Specialty | Care Team | Description | +--------+---------+ + + + | 07/06/ | Office | Sleep Medicine | Sundeep Ba PA | | | 2019 | Visit | | [address] | | | | | | [place] | | | | | | [id number] | | | | | | | | +--------+---------+ + + + | 07/11/ | Office | Orthopedic Surgery | Andre Caballero | | | 2018 | Visit | | MD Rojelio [facility] [place] | | | | | | [place] | | | | | | [address] | | | | | | | | +--------+---------+ + + + as of this encounter Results XR Knee Left 1 - 2 Vw (06/07/2018 1621) + + + | Narrative | Performed [...] narrowing. Mild right medial compartment joint space | | | narrowing. No significant lateral compartment or patellofemoral | | | joint space narrowing. However, there is subchondral cortical | | | irregularity at the superior half of the patella articular | | | surface. Small bilateral tricompartment osteophyte | | | formation. Probable mild right joint effusion. Soft tissue: No | | | acute soft tissue abnormality. Mineralization noted within the | | | medial and lateral menisci bilaterally. IMPRESSION - Right knee | | | medial and patellofemoral compartment mild osteoarthritis. Probable | | | mild joint effusion. Left knee medial compartment mild to | | | moderate osteoarthritis. Bilateral meniscal chondrocalcinosis. | | | Dictated and Signed by: Mahesh Daley MD Electronically | | | signed: 06/07/2018 6:22 PM | | + + + + + | Procedure Note | + + | Tha, Rad Results In - 06/07/2018 1826 PDT CLINICAL INFORMATION: bilateral knee pain. | | | | COMPARISON: Radiographs dated 12/04/2014 and MRI 12/10/2014. | | | | FINDINGS: | | 4 views each knee. | | | | Bones: No fracture or dislocation. No periostitis. | | | | Joints: Mild to moderate left medial compartment joint space narrowing. Mild | | right medial compartment joint space narrowing. No significant lateral | | compartment or patellofemoral joint space narrowing. However, there is | | subchondral cortical irregularity at the superior half of the patella articular | | surface. Small bilateral tricompartment osteophyte formation. Probable mild | | right joint effusion. | | | | Soft tissue: No acute soft tissue abnormality. Mineralization noted within the | | medial and lateral menisci bilaterally. | | | | IMPRESSION - | | Right knee medial and patellofemoral compartment mild osteoarthritis. Probable | | mild joint effusion. | | | | Left knee medial compartment mild to moderate osteoarthritis. | | | | Bilateral meniscal chondrocalcinosis. | | | | Dictated and Signed by: Mahesh Daley MD | | Electronically signed: 06/07/2018 6:22 PM | + + + +---------+ + + | Performing | Address | City[facility] | Phone Number | | Organization | | | | + +---------+ + + | [facility] | | | | + +---------+ + + XR Knee Right 4 + Vw (06/07/2018 1621) + + + | Narrative | Performed [...] narrowing. Mild right medial compartment joint space | | | narrowing. No significant lateral compartment or patellofemoral | | | joint space narrowing. However, there is subchondral cortical | | | irregularity at the superior half of the patella articular | | | surface. Small bilateral tricompartment osteophyte | | | formation. Probable mild right joint effusion. Soft tissue: No | | | acute soft tissue abnormality. Mineralization noted within the | | | medial and lateral menisci bilaterally. IMPRESSION - Right knee | | | medial and patellofemoral compartment mild osteoarthritis. Probable | | | mild joint effusion. Left knee medial compartment mild to | | | moderate osteoarthritis. Bilateral meniscal chondrocalcinosis. | | | Dictated and Signed by: Mahesh Daley MD Electronically | | | signed: 06/07/2018 6:22 PM | | + + + + + | Procedure Note | + + | Tha, Rad Results In - 06/07/2018 1826 PDT CLINICAL INFORMATION: bilateral knee pain. | | | | COMPARISON: Radiographs dated 12/04/2014 and MRI 12/10/2014. | | | | FINDINGS: | | 4 views each knee. | | | | Bones: No fracture or dislocation. No periostitis. | | | | Joints: Mild to moderate left medial compartment joint space narrowing. Mild | | right medial compartment joint space narrowing. No significant lateral | | compartment or patellofemoral joint space narrowing. However, there is | | subchondral cortical irregularity at the superior half of the patella articular | | surface. Small bilateral tricompartment osteophyte formation. Probable mild | | right joint effusion. | | | | Soft tissue: No acute soft tissue abnormality. Mineralization noted within the | | medial and lateral menisci bilaterally. | | | | IMPRESSION - | | Right knee medial and patellofemoral compartment mild osteoarthritis. Probable | | mild joint effusion. | | | | Left knee medial compartment mild to moderate osteoarthritis. | | | | Bilateral meniscal chondrocalcinosis. | | | | Dictated and Signed by: Mahesh Daley MD | [...] + | Primary osteoarthritis of both knees | + + | Primary localized osteoarthrosis, lower leg | + + Administered Medications + +--------+ +------+------+ + | Medication Order | MAR | Action | Dose | Rate | Site | | | Action | Date | | | | + +--------+ +------+------+ + | betamethasone (CELESTONE | Given | | 9 mg | | Knee-Rig | | SOLUSPAN) injection 9 mg 9 mg, | | 9 17:46 | | | ht | | Intra-articular, ONCE, Wed | | PDT | | | | | 06/07/18 at 1815, For 1 dose, | | | | | | | Shake well. Not for IV use. | | | | | | + +--------+ +------+------+ + +---+---+ | | | +---+---+ + +-------+ +------+---+ + | betamethasone (CELESTONE | Given | | 9 mg | | Knee-Lef | | SOLUSPAN) injection 9 mg 9 mg, | | 9 17:46 | | | t | | Intra-articular, ONCE, Wed | | PDT | | | | | 06/07/18 at 1815, For 1 dose, | | | | | | | Shake well. Not for IV use. | | | | | | + +-------+ +------+---+ + +---+---+ | | | +---+---+ in this encounter
--- OUTSIDE RECORDS SUMMARY | ~2018-06-13 | XMS | Clinical Summary ---
Demographics + + + | Address | [address] [facility] [address] | | | [place] [address] | + + + | Home Phone | | + + + | Preferred Language | Unknown | + + + | Marital Status | | + + + | Gnosticist Affiliation | 1013 | + + + | Race | Unknown | + + + | Ethnic Group | Unknown | + + + Author + + + | Author | [facility] | | | and [place] | + + + | Organization | [facility] | | | and [place] | [...] Team Providers + +------+ + | Care Offender Job Retention Specialist Name | Role | Phone | [...] (MINIPRESS) 1 mg | | | | 4/20 | | e | | capsule | | | | 18 | | | + + +--------+---------+------+------+-------+ | Magnesium 400 MG | Take by mouth. | | | | | Activ | | CAPS | | | | | | e | + + +--------+---------+------+------+-------+ | Blood Glucose | TEST BLOOD GLUCOSE 1 | | 0 | 09/1 | | Activ | | Monitoring Suppl | TO 2 TIMES DAILY | | | 8/20 | | e | | (FREESTYLE LITE) | | | | 18 | | | | SERG | | | | | | | + + +--------+---------+------+------+-------+ | famotidine | 20 mg Daily. | | 0 | 10/1 | | Activ | | (PEPCID) 20 mg | | | | 3/20 | | e | | tablet | | | | 18 | | | + + +--------+---------+------+------+-------+ | FREESTYLE LITE | CHECK BLOOD SUGAR | | 0 | 09/1 | | Activ | | strip | EVERY MORNING AND 1 | | | 8/20 | | e | | | TO 2 TIMES | | | 18 | | | | | THROUGHOUT THE DAY | | | | | | + + +--------+---------+------+------+-------+ | FLUCELVAX | inject 0.5 | | 0 | 10/2 | | Activ | | QUADRIVALENT 0.5 ML | milliliter | | | 5/20 | | e | | vaccine injection | intramuscularly | | | 18 | | | + + +--------+---------+------+------+-------+ | FREESTYLE LANCETS | CHECK BLOOD SUGAR | | 0 | 09/1 | | Activ | | MISC | every morning and 1 | | | 10/31 | | e | | | TO 2 TIMES | | | 18 | | | | | THROUGHOUT THE DAY | | | | | | + + +--------+---------+------+------+-------+ | | Take 1-2 tablets by | 15 | 0 | 01/1 | | Activ | | oxyCODONE-acetaminop | mouth every 6 hours | tablet | | 4/20 | | e | | hen (PERCOCET) 5-325 | as needed for Pain. | | | 19 | | | | mg per tablet | | | | | | | + + +--------+---------+------+------+-------+ | ibuprofen | take 1 tablet by | | 0 | 03/1 | | Activ | | (ADVIL,MOTRIN) 800 | mouth three times a | | | 1/20 | | e | | MG tablet | day for 10 days | | | 19 | | | + + +--------+---------+------+------+-------+ + [...] +------+------+-------+ | betamethasone | 9 mg | IX | ONCE | 05/13 | 05/13 | Ended | | (CELESTONE SOLUSPAN) | | | | 09/30 | 09/30 | | | injection 9 | | | | 19 | 19 | | | mgIndications: | | | | | | | | Chronic pain of both | | | | | | | | knees | | | | | | | + + +-------+ +------+------+-------+ | betamethasone | 9 mg | IX | ONCE | 05/13 | 05/13 | Ended | | (CELESTONE SOLKENDALTANIA) | | | | 09/30 | 09/30 | | | injection 9 | | | | 19 | 19 | | | mgIndications: | | | | | | | | Chronic pain of both | | | | | | | | knees | | | | | | | [...] + | NSTEMI (non-ST elevated myocardial infarction) ([facility]) | 11/11/2011 | + + + | Paranoid schizophrenia, chronic condition ([facility]) | 11/11/2011 | + + + | Seizure disorder ([facility]) | 11/11/2011 | + + + [...] to | | [facility] - | | 2016_Regulatory_1 [...] | | + +---+ | Bipolar disorder (HCC) | | + +---+ + + | Overview: Overview: History of suicidal ideation. Goes to | | [facility]. Psychiatric meds prescribed by Dr Zhu Name | | changed by system update on 12/24/2016Overview: History of | | suicidal ideation. Goes to [facility]. Psychiatric meds prescribed | | by Dr Zhu Name changed by system update on 12/24/2016 | | | |Overview: | |History of suicidal ideation. Goes to [facility]. Psychiatric meds prescribed by | | Dr [...] | +--------+ + + + + | 06/07/ | Hospital | | Andre Caballero | Chronic pain of both | | 2018 | Encounter | | MD Rojelio | knees | +--------+ + + + + | 06/07/ | Office | | Andre Caballero | Chronic pain of both | | 2018 | Visit | | MD Rojelio | knees (Primary Dx); | | | | | | Primary | | | | | | osteoarthritis of | | | | | | both knees | +--------+ + + + + | 04/05/ | Office | | Sundeep Ba PA | CONSUELO on CPAP (Primary | | 2018 | Visit | | | Dx) | +--------+ + + + + | 03/27/ | Emergency | | Rj Leung MD | Kurta, | | 2018 | | | | unspecified | | | | | | laterality (Primary | | | | | | Dx) | +--------+ + + + + | 03/15/ | Office | | Andre Caballero | Primary | | 2018 | Visit | | MD Rojelio | osteoarthritis of | | | | | | right hip (Primary | | | | | | Dx) | +--------+ + + + + from [...] + | Blood Pressure | 140/82 | 04/05/20181514 PST | + + + + | Pulse | 89 | 04/05/20181514 PST | + + + + | Temperature | 36.6 C (97.8 F) | 03/27/2018 1257 PST | + + + + | Respiratory Rate | 16 | 04/05/20181514 PST | + + + + | Oxygen Saturation | 96% | 04/05/20181514 PST | + + + + | Inhaled Oxygen | - | - | | Concentration | | | + + + + | Weight | 120.2 kg (265 lb) | 06/07/20181601 PDT | + + + + | Height | 175.3 cm (5' 9") | 06/07/20181601 PDT | + + + + | Body Mass Index | 39.13 | 06/07/20181601 PDT | + + + + Plan of Treatment +--------+---------+ + + + | Date | Type | Specialty | Care Team | Description | +--------+---------+ + + + | 07/06/ | Office | | Sundeep Ba PA | | | 2018 | Visit | | [address] | | | | | | [place] | | | | | | [address] | | | | | | | | +--------+---------+ + + + | 07/11/ | Office | | Andre Caballero | | | 2018 | Visit | | MD Dez [address] | | | | | | [place] | | | | | | [address] | | | | | | | [...] + + + | Vaccine: Influenza | Completed | 01/05/2018, 12/03/2016, | | | | | 12/06/2013, Additional history | | | | | exists | | + + + + + Procedures + +--------+ + + + | Procedure Name | Priori | Date/Time | Associated Diagnosis | Comments | | | ty | | | | + +--------+ + + + | XR KNEE LEFT 1 - 2 | Routin | 06/07/2018 | Chronic pain of | Results for this | | VW | e | 1621 PDT | both knees | procedure are in the | | | | | | results section. | + +--------+ + + + | XR KNEE RIGHT 4 + VW | Routin | 06/07/2018 | Chronic pain of | Results for this | | | e | 1621 PDT | both knees | procedure are in the | | | | | | results section. | + +--------+ + + + | XR LUMBAR SPINE 2 OR | Routin | 03/27/2018 | | Results for this | | 3 VW | e | 1343 PST | | procedure are in the | | | | | | results section. | + +--------+ + + + from Last 3 Months Results XR Knee Right 4 + Vw (06/07/2018 [...] | + +---------+ + + XR Knee Left 1 - 2 Vw [...] | | + +---------+ + + XR Lumbar Spine 2 or 3 Vw (03/27/2018 1343) + + + | Narrative | Performed [...] | Tha, Rad Results In - 03/27/2018 1428 PST XR LUMBAR SPINE 2 OR 3 VW 03/27/2018 1:42 PM | | | | HISTORY: back pain. | | | | COMPARISON: None. | | | | FINDINGS: | | There are no acute osseous findings. There is hardware for posterior fusion from | | L4 through L5 that are intact. Minimal anterolisthesis is seen of L2 over L3. | | There is slight wedging of L3 that is likely to be physiologic. The bone | | mineralization is decreased. Mild disc narrowing is at L4-5. Facet joints are | | intact. Visualized ribs and pelvic osseous structures show no acute findings. | | There are cholecystectomy clips. | | | | IMPRESSION - | | No acute findings. | | | | Posterior fusion from L4 through L5. | | | | Dictated and Signed [...] | [employer] | MODA | [id number] | [employer] | [phone] | | | MEDICAID HMO | HEALTH [...] Self | [birth year] | Home: | [address] | | | al/Fam | | 1956 | [phone] | [address] [place] | | | [place] | | | [phone] | + +--------+ +--------+ + +
--- OUTSIDE RECORDS SUMMARY | ~2018-06-13 | XMS | Encounter Summary ---
Demographics + + + | Address | [address] [facility] [address] | | | [place] [address] | + + + | Home Phone [...] | Author | [facility] | | | and [place] | + + + | Organization | [facility] | | | and [place] | [...] Team Providers + +------+ + | Care Hl7 Developer Name | Role | Phone | [...] Description | +--------+---------+ + + + | 04/05/ | Office | [facility] | Sundeep Ba PA | CONSUELO on CPAP (Primary | | 2019 | Visit | SLEEP DISORDER [address] | [address] | Dx) | | | | [address] | [place] | | | | | [place] [address] | [address] | | | | | [phone] | | | +--------+---------+ + + + [...] + + + + | Weight | 122.3 kg (269 lb | 04/05/2018 1515 PST | | | 11.7 oz) | | + + + + | Height | - | - | + + + + | Body Mass Index | 39.83 | 04/05/2018 1515 PST | + + + + in this encounter Progress Notes Sundeep Ba, MINOO - 04/05/2018 1530 PSTFormatting of this note may be different from the or iginal. Subjective: Patient ID: Luz Maria Carmona is a 62 y.o. female. HPI last office visit was: 01/31/2018 date of split-night polysomnography: 12/03/2014 AHI: 62.1 RDI: 69.2 O2%: 74% with 27.0 minutes below 88% Machine type: ResMed AirSense 10 Mask type: nasal mask DME: [facility] [place] pressure: 9-20 cm (lowered to 4-8 cm for comfort) Median: 7.6 cm 95%: 7.9 cm maximum: 7.9 cm Nights using CPAP: 74/122 24/41 % of nights >4 hours: 47% 43% average usage (all nights): 3:01 2:55 average usage (nights used): 4:59 5:00 AHI: 1.5 "Alma Rosa" comes in for CPAP compliance. She was not wearing her CPAP at all for quite some time. She now understands that she has severe apnea and the importance of treating her apne a with CPAP. She is committed to doing well with her CPAP usage because she wants to stay h ealthy for her grandchildren and recent great-grandchild. She does well with her CPAP when she wears it, but has struggled with her consistency. Par t of this was because she had problems with her power cord to her CPAP working properly. Th is was replaced a few weeks ago and her CPAP usage has improved, but is still inconsistent. We again discussed the importance of wearing her CPAP 100% of the time she is asleep in ord er to develop it into a regular part of her sleep routine. I have discussed the download in detail. This shows that her sleep apnea is controlled, wi th an AHI of 1.5. It also shows that her leaks are controlled. BP 140/82 | Pulse 89 | Resp 16 | Wt 122.3 kg (269 lb 11.7 oz) | SpO2 96% | BMI 39.83 k g/m Review of Systems Objective: Physical Exam Assessment: Problem #1: OBSTRUCTIVE SLEEP APNEA ([id number]) This is controlled with CPAP. She improved her usage with her CPAP, but is still inconsist ent with it. Plan: 1. She is to continue with CPAP indefinitely. 2. She is to work toward wearing her CPAP 100% of the time she is asleep. I will follow up again in 2 months, sooner prn. Fifteen minutes were spent [id number], w ith the majority of time spent in counseling. Sundeep Ba PA-C cc: Abimael Devlin MD in this encounter Plan of Treatment +--------+---------+ + + + | Date | Type | Specialty | Care Team | Description | +--------+---------+ + + + | 07/06/ | Office | Sleep Medicine | Sundeep Ba PA | | | 2018 | Visit | | [address] | | | | | | [place] | | | | | | [address] | | | | | | | | +--------+---------+ + + + | 07/11/ | Office | Orthopedic Surgery | Andre Caballero | | | 2018 | Visit | | MD [address] | | | | | | [place] | | | | | | [address] | | | | | | | | +--------+---------+ + + + as of this encounter Visit Diagnoses + + | Diagnosis | + + | CONSUELO on CPAP - Primary | + + | Obstructive sleep apnea (adult) (pediatric) | + +
--- OUTSIDE RECORDS SUMMARY | ~2018-06-13 | XMS | Encounter Summary ---
Demographics + + + | Address | [address] [facility] [address] | | | [place] [address] | + + + | Home Phone [...] | [facility] | | | and [place] | + + + | Organization | [facility] | | | and [place] [...] Team Providers + +------+ + | Care Program Support Clerk Name | Role | Phone | [...] | | | | CENTER [address] | [place] | laterality (Primary | | | | [place] | [address] | Dx) | | | | [address] | | | | | | [phone] | | | +--------+ + + + [...] | Blood Pressure | 102/60 | 03/27/2018 1405 PST | + + + + | Pulse | 83 | 03/27/2018 1405 PST | + + + + | Temperature | 36.6 C (97.8 F) | 03/27/2018 1257 PST | + + + + | Respiratory Rate | 14 | 03/27/2018 1405 PST | + + + + | Oxygen Saturation | 93% | 03/27/2018 1405 PST | + + + + | Inhaled Oxygen | - | - | | Concentration | | | + + + + | Weight | 113.4 kg (250 lb) | 03/27/2018 1257 PST | + + + + | Height | 175.3 cm (5' 9") | 03/27/2018 1257 PST | + + + + | Body Mass Index | 36.92 | 03/27/2018 1257 PST | + + + + in this encounter Discharge Instructions Rj Leung MD - 03/27/2018Pain control as needed Slowly resume activities as tolerated Return for worsening symptoms, other new complaints in this encounter Medications at Time of [...] | + + +--------+---------+ + + | Blood Glucose | TEST [...] | + + +--------+---------+ + + | famotidine | 20 mg Daily. | | 0 | 12/25/19 | | | (PEPCID) 20 mg | | | | 18 | | | tablet | | | | | | + + +--------+---------+ + + | FLUCELVAX | inject 0.5 | | 0 | 01/06/20 | | | QUADRIVALENT 0.5 ML | milliliter | | | 18 | | | vaccine injection | intramuscularly | | | | | + + +--------+---------+ + + | FREESTYLE LANCETS | CHECK BLOOD SUGAR | | 0 | 11/30/19 | | | MISC | every morning and 1 | | | 18 | | | | TO 2 TIMES | | | | | | | THROUGHOUT THE DAY | | | | | + + +--------+---------+ + + | FREESTYLE LITE | CHECK [...] + + +--------+---------+ + + | | Take 1-2 tablets by | 15 | 0 | 03/27/19 | | | oxyCODONE-acetaminop | mouth every 6 hours | tablet | | 19 | | | hen (PERCOCET) 5-325 | as [...] 2019 | Visit | | [address] | | | | | | [place] | | | | | | [address] | | | | | | | | +--------+---------+ + + + | 07/11/ | Office | Orthopedic Surgery | Andre Caballero | | | 2018 | Visit | | MD [address]z [address]err[address] | | | | | | [place] | | | | | | [id number] | | | | | | | [...] + + in this encounter Results XR Lumbar Spine [...] unspecified laterality - Primary | + + Administered Medications + +--------+ +------+------+ + | Medication Order | MAR | Action | Dose | Rate | Site | | | Action | Date | | | | + +--------+ +------+------+ + | HYDROmorphone (DILAUDID) | Given | | 2 mg | | Ventrogl | | injection 2 mg 2 mg, | | 9 13:42 | | | uteal-Le | | Intramuscular, ONCE, 03/27/18 | | PST | | | ft | | at 1320, For 1 dose | | | | | | + +--------+ +------+------+ + +---+---+ | | | +---+---+ + +-------+ +-------+---+ + | ketorolac (TORADOL) injection | Given | | 30 mg | | Ventrogl | | 30 mg 30 mg, Intramuscular, | | 9 13:42 | | | uteal-Ri | | ONCE, Tue03/27/18 at 1320, For 1 | | PST | | | ght | | dose | | | | | | + +-------+ +-------+---+ + +---+---+ | | | +---+---+ in this encounter
--- OUTSIDE RECORDS SUMMARY | ~2018-06-13 | XMS | Encounter Summary ---
Demographics + + + | Address | [address] [facility] [address] | | | [place] [address] | + + + | Home Phone [...] Author | [facility] | | | and [place] | + + + | Organization | [facility] | | | and [...] Team Providers + +------+ + | Care Night Coordinator Name | Role | Phone | [...] + + | 03/15/ | Office | [facility] | Andre Caballero | Primary | | 2019 | Visit | ORTHOPEDIC SURGERY | MD Rojelio [address] | osteoarthritis of | | | | [address] | [place] | right hip (Primary | | | | [place], [place] | [address] | Dx) | | | | [address] | | | | | | [phone] | | | +--------+---------+ + + + [...] | 117 kg (258 lb) | 03/15/2018 141 PST | + + + + | Height | 172.7 cm (5' 8") | 03/15/2018 141 PST | + + + + | Body Mass Index | 39.23 | 03/15/2018 141 PST | + + + + in this encounter Progress Notes Andre Caballero MD - 03/15/2018 1415 Gregg returns for follow-up of her painful right hip. At the time of her last visit in our office in October of last year she received a right hip trochanteric bursal injection that did not really help her pain at all. She the n subsequently received an intra-articular right hip cortisone injection from Dr. Gonzalez that relieved 2/3 of her pain for a few days. Today, she states that her life is being sig nificantly restricted because of right hip pain and she like to proceed with definitive lory tment. Exam: Examination reveals that she continues to [...] cessation. She also will work diligently on clementina ght loss and will be seen back or office in 2 months for discussion and decision making.in t his encounter Plan of Treatment +--------+---------+ + + + | Date | Type | Specialty | Care Team | Description | +--------+---------+ + + + | 07/06/ | Office | Sleep Medicine | Sundeep Ba PA | | | 2018 | Visit | | [address] | | | | | | [place] | | | | | | [phone] | | | | | | | | +--------+---------+ + + + | 07/11/ | Office | Orthopedic Surgery | Andre Caballero | | | 2018 | Visit | | MD Dez Serrato | | | | | | [place] | | | | | | [phone] | | | | | | | | +--------+---------+ + + + as of this encounter Visit Diagnoses + + | Diagnosis | + + | Primary osteoarthritis of right hip - Primary | + + | Primary localized osteoarthrosis, pelvic region and thigh | + +
--- OUTSIDE RECORDS SUMMARY | ~2018-06-13 | XMS | Encounter Summary ---
Demographics + + + | Address | [address] [facility] [address] | | | [place] [address] | + + + | Home Phone | | + + + | Preferred Language | Unknown | + + + | Marital Status | | + + + | Restoration Affiliation | 1013 | + + + | Race | Unknown | + + + | Ethnic Group | Unknown | + + + Author + + + | Author | [facility] | | | and [place] | + + + | Organization | [facility] | | | and [...] Team Providers + +------+ + | Care Tongue And Groove Machine Feeder Name | Role | Phone [...] + | 06/07/ | Office | [facility] | Andre Caballero | Chronic pain of both | | 2019 | Visit | ORTHOPEDIC SURGERY | MD Rojelio [address] [place] [address] | knees (Primary Dx); | | | | [address] [facility] | [place] | Primary | | | | [place], [place] | [address] | osteoarthritis of | | | | [address] | | both knees | | | | [phone] | | | +--------+---------+ + + + [...] 2019 | Visit | | [address] | | | | | | [place] | | | | | | [address] | | | | | | | | +--------+---------+ + + + | 07/11/ | Office | Orthopedic Surgery | Andre Caballero | | | 2018 | Visit | | MD Rojelio [facility] | | | | | | [place] | | | | | | [address] | | | | | | | [...]
--- OUTSIDE RECORDS SUMMARY | ~2018-06-13 | XMS | Encounter Summary ---
Demographics + + + | Address | [address] [facility] [address] | | | [place] [address] | + + + | Home Phone | | + + + | Preferred Language | Unknown | + + + | Marital Status | | + + + | Yazidi Affiliation | 1013 | + + + | Race | Unknown | + + + | Ethnic Group | Unknown | + + + Author + + + | Author | [facility] | | | and [place] | + + + | Organization | [facility] | | [...] Providers + +------+ + | Care Box Covering Machine Operator Name | Role | Phone | + +------+ + | Abimael Devlin MD | PCP | | + +------+ + Encounter Details +--------+ + + + + | Date | Type | Department | Care Team | Description | +--------+ + + + + | 06/07/ | [facility] | [facility] | Andre Caballero | Chronic pain of both | | 2019 | Encounter | [facility]err[facility] MD [address] | knees | | | | [address] | [place] | | | | | [place] | [address] | | | | | [address] | | | | | | [phone] | | | +--------+ + + + [...] | + + +--------+---------+ + + | ibuprofen | take 1 [...] [place] | | | | | | [address] | | | | | | | | +--------+---------+ + + + | 07/11/ | Office | Orthopedic Surgery | Andre Caballero | | | 2018 | Visit | | MD [address] | | | | | | [place] | | | | | | [address] | | | | | | | [...] + + in this encounter Results XR Knee Left 1 - 2 Vw (06/07/20181) + + + | Narrative | Performed [...] + | Performing | Address | City[facility] | Phone Number | | Organization [...] Chronic pain of both knees | + +"
--- OUTSIDE RECORDS SUMMARY | ~2018-06-13 | XMS | Clinical Summary ---
Demographics + + + | Address | [address] | | | [place] [address] | + + + | Home Phone | | + + + | Preferred Language | Unknown | + + + | Marital Status | Single | + + + | Denominational Affiliation | Unknown | + + + | Race | Unknown | + + + | Ethnic Group | Unknown | + + + Author + + + | Author | [facility] | + + + | Organization | [facility] | + + + | Address | Unknown | + + + | Phone | Unavailable | + + + Support + + +---------+ + | Name | Relationship | Address | Phone | + + +---------+ + | Christina Muhammad | ECON | Unknown | | + + +---------+ + Care Team Providers + +------+ + | Care Big Data Software Engineer Name | Role | Phone | [...] + + | Father | | | [place] | | | | (Age | | [...] +------+-------+ + | MEDICAID | [place] | [id number] | | | [address] | | | [place] | | | | [place] | | | [place] | | | | [address] | | | NUCLEAR ENGINEERING TECHNICIAN | | | | | + +--------+ [...] | Self [birth year] | Home: | [address] [place] [address] | | | al/Fam | | 1956 | [phone] | [address] [place] | | | [place] | | | [phone] | + +--------+ +--------+ + +
--- OUTSIDE RECORDS SUMMARY | ~2018-06-13 | XMS | Encounter Summary ---
Demographics + + + | Address | [address] [facility] [address] | | | [place] [address] | + + + | Home Phone | | + + + | Preferred Language | Unknown | + + + | Marital Status | | + + + | Baptist Affiliation | 1013 | + + + | Race | Unknown | + + + | Ethnic Group | Unknown | + + + Author + + + | Author | [facility] | | | and [place] | + + + | Organization | [facility] | | [...] Team Providers + +------+ + | Care Door Closer Name | Role | Phone | + [...] | | | | CENTER [address] | [place] | laterality (Primary | | | | [place] | [address] | Dx) | | | | [address] | | | | | | [phone] | | | +--------+ + + + [...] [place] | | | | | | [address] | | | | | | | | +--------+---------+ + + + | 07/11/ | Office | Orthopedic Surgery | Andre Caballero | | | 2018 | Visit | | MD Dez [address]errato | | | | | | [place] | | | | | | [id number] | | | | | | | [...]
--- OUTSIDE RECORDS SUMMARY | ~2018-06-13 | XMS | Encounter Summary ---
Demographics + + + | Address | [address] [facility] [address] | | | [place] [address] | + + + | Home Phone [...] | Author | [facility] | | | and [place] | + + + | Organization | [facility] | [...] Team Providers + +------+ + | Care Adzing And Boring Machine Operator Name | Role | Phone [...] | SLEEP DISORDER 401 | [address] | Dx) | | | | [address] [place] | [place] | | | | | [place] [address] | [address] | | | | | [phone] | | | +--------+---------+ + + + [...] AirSense 10 Mask type: nasal mask DME: [facility] in [place] pressure: 9-20 cm (lowered to 4-8 cm [...] Exam Assessment: Problem #1: OBSTRUCTIVE SLEEP APNEA ([id number]) This is controlled with CPAP. She improved her usage with her CPAP, but is still inconsist ent with it. Plan: 1. She is to continue with CPAP indefinitely. 2. She is to work toward wearing her CPAP 100% of the time she is asleep. I will follow up again in 2 months, sooner prn. Fifteen minutes were spent [id number], w ith the majority of time spent [...] [place] | | | | | | [address] | | | | | | | | +--------+---------+ + + + | 07/11/ | Office | Orthopedic Surgery | Andre Caballero | | | 2018 | Visit | | [address] | | | | | | [place] | | | | | | [address] | | | | | | | | +--------+---------+ + + + as of this encounter Visit Diagnoses + + | Diagnosis | + + | CONSUELO on CPAP - Primary | + + | Obstructive sleep apnea (adult) (pediatric) | + +
--- OUTSIDE RECORDS SUMMARY | ~2018-06-13 | XMS | Encounter Summary ---
Demographics + + + | Address | [address] [facility] [address] | | | [place] [address] | + + + | Home Phone [...] | [facility] | | | and [place] | + + + | Organization | [facility] | | | and [...] Providers + +------+ + | Care Pharmacy Ancillary Name | Role | Phone | + +------+ + | Abimael Devlin MD | PCP | | + +------+ + Encounter Details +--------+ + + + + | Date | Type | Department | Care Team | Description | +--------+ + + + + | [facility] | Andre Caballero | Chronic pain of both | | 2019 | Encounter | [facility] Y[facility]MIN Serrato MD [address] | knees | | | | [address] [place] | [place] | | | | | [place] | [address] | | | | | [address] | | | | | | [phone] | | | +--------+ + + + [...] [place] | | | | | | [address] | | | | | | | | +--------+---------+ + + + | 07/11/ | Office | Orthopedic Surgery | Andre Caballero | | | 2018 | Visit | | MD [address] | | | | | | [place] | | | | | | [address] | | | | | | | [...] + + | Performing | Address | City/State[facility] | Phone Number | | Organization [...]
--- OUTSIDE RECORDS SUMMARY | ~2018-06-13 | XMS | Encounter Summary ---
Demographics + + + | Address | [address] [facility] [address] | | | [place] [address] | + + + | Home Phone [...] Author | [facility] | | | and [place] | + + + | Organization | [facility] | [...] Team Providers + +------+ + | Care Mysql Database Developer Name | Role | Phone | [...] + + | 03/15/ | Office | [facility] | Andre Caballero | Primary | | 2019 | Visit | ORTHOPEDIC SURGERY | MD Rojelio [address] [facility] | osteoarthritis of | | | | [address] [facility] | [place] | right hip (Primary | | | | [place], [place] | [address] | Dx) | | | | [address] | | | | | | [phone] | | | +--------+---------+ + + + [...] 07/06/ | Office | Sleep Medicine | Sunedep Ba PA | | | 2018 | Visit | | [address] | | | | | | [place] | | | | | | [phone] | | | | | | | | +--------+---------+ + + + | 07/11/ | Office | Orthopedic Surgery | Andre Caballero | | | 2018 | Visit | | MD [address]z [address] | | | | | | [place] | | | | | | [phone] | | | | | | | | +--------+---------+ + + + as of this encounter Visit Diagnoses + + | Diagnosis | + + | Primary osteoarthritis of right hip - Primary | + + | Primary localized osteoarthrosis, pelvic region and thigh | + +
--- OUTSIDE RECORDS SUMMARY | ~2018-06-13 | XMS | Clinical Summary ---
Demographics + + + | Address | [address] | | | [place] [address] | + + + | Home Phone | | + + + | Preferred Language | Unknown | + + + | Marital Status | Single | + + + | Alevism Affiliation | Unknown | + + + | Race | Unknown | + + + | Ethnic Group | Unknown | + + + Author + + + | Author | [facility] | + + + | Organization | [facility] | + + + | Address | Unknown | + + + | Phone | Unavailable | + + + Support + + +---------+ + | Name | Relationship | Address | Phone | + + +---------+ + | Christina Muhammad | ECON | Unknown | | + + +---------+ + Care Team Providers + +------+ + | Care Armored Car Guard And Driver Name | Role | Phone | + [...] + + | Father | | | [place] | | | | (Age | | [...] +------+-------+ + | MEDICAID | [place] | [id number] | | | [address] | | | N | | | | [place] | | | [place] | | | | [address] | | | IMAGE ARCHIVIST | | | | | + +--------+ [...] | Self [birth year] Home: | [address] [place] [address] | | | al/Fam | | 1956 | [phone] | [address] [place] | | | [place] | | | [phone] | + +--------+ +--------+ + +
--- OUTSIDE RECORDS SUMMARY | ~2018-06-13 | XMS | Clinical Summary ---
Demographics + + + | Address | [address] [facility] [address] | | | [place] [address] | + + + | Home Phone [...] Author | [facility] | | | and [place] | + + + | Organization | [facility] | [...] Team Providers + +------+ + | Care Resource Manager Forester Name | Role | Phone | + [...] + | NSTEMI (non-ST elevated myocardial infarction) ([facility]) | 11/11/2011 | + + + | Paranoid schizophrenia, chronic condition ([facility]) | 11/11/2011 | + + + | Seizure disorder ([facility]) | 11/11/2011 | + + + | [...] to | | [facility]zo[facility] Problem [facility] Replacement - | | 2016_Regulatory_1 [...] of suicidal ideation. Goes to | | [facility]. Psychiatric meds prescribed by Dr Zhu Name | | changed by system update on 12/24/2016Overview: History of | | suicidal ideation. Goes to [facility]. Psychiatric meds prescribed | | by Dr Zhu Name changed by system update on 12/24/2016 | | | |Overview: | |History of suicidal ideation. Goes to [facility]. Psychiatric meds prescribed by | | Dr [...] 2018 | Visit | | [address] | | | | | | [place] | | | | | | [address] | | | | | | | | +--------+---------+ + + + | 07/11/ | Office | | Andre Caballero | | | 2018 | Visit | | MD [address] | | | | | | [place] | | | | | | [address] | | | | | | | [...] Performing | Address | City/State/[facility] Cent[facility]ode | Phone Number | | [...] | [employer] | [place] | [id number] | Medica | [phone] | | MEDICAID HMO | HEALTH [...] | [birth year] | Home: | [address] | | | al/Fam | | 1956 | [phone] | [address] [place] | | | [place] | | | [phone] | + +--------+ +--------+ + +
--- OUTSIDE RECORDS SUMMARY | 2018-06-13 19:30 | XMS ---
PreManage Notification: TIM LOCKWOOD Security Water Aerobics Instructor Events No recent Security Events currently on file CRITERIA MET - [facility] - 2 Visits in 30 Days CARE PROVIDERS SANJEEV BREAUX [facility] 05/23/2018-Current PHONE: [phone] Raissa Ng Head Of Product/Pusher Runner 07/12/2016-Current PHONE: [phone] Sherry Gibson Head Of Product/Pusher Runner 07/12/2016-Current PHONE: [phone] Sherry Gibson Primary Care 07/12/2016-Current PHONE: [phone] Fernie Higgins MD PHONE: Unknown Jenniffer Ruiz Current Orthopedic Surgery \T\ Fracture Clinic PHONE: Unknown Delgado has no Care Guidelines for this patient. [place] VISIT COUNT (12 MO.) 1 Jeanette Lawson M.C. 3 CHRISTA Rivera TOTAL 4 NOTE: Visits indicate total known visits. ED/UCC VISIT TRACKING (12 MO.) 06/13/2018 19:28 CHRISTA Burrell TYPE: Emergency COMPLAINT: - ABD PAIN/CRAMPING 05/22/2018 09:12 CHRISTA Burrell TYPE: Emergency COMPLAINT: - R ARM PAIN/INJURY/MSE TO CLINIC DIAGNOSES: - Pain in right arm 03/27/2018 12:22 [facility] Dayana [place] TYPE: Emergency DIAGNOSES: - back pain - Sciatica, unspecified side 11/09/2017 01:[address] [facility] [place] TYPE: Emergency COMPLAINT: - ABD CRAMPING DIAGNOSES: - Allergy status to narcotic agent status - Allergy status to other drugs, medicaments and biological substances status - Nicotine dependence, unspecified, uncomplicated - Left upper quadrant pain - Right upper quadrant pain - Post-traumatic stress disorder, unspecified - Type 2 diabetes mellitus without complications - Major depressive disorder, single episode, unspecified - Other penitentiary (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 - Essential (primary) hypertension INPATIENT VISIT TRACKING (12 MO.) No inpatient visits to display in this time frame [email or web address]
--- NOTE | 2018-06-14 15:32 | EKG ---
[facility] [address] [place], [place] [address] Signed Normal sinus rhythm Normal ECG When compared with ECG of 17-MAR-2017 19:47, No significant change was found Confirmed by AGAPITO ALEXANDRA DO ([id number]) on 06/14/2018 3:32:19 PM Electronically Signed By: AGAPITO ALEXANDRA DO 06/14/18 1532 PATIENT NAME: LOCKWOODTIM ZEYNEP Electrocardiogram DATE OF : 53 PHYSICIAN: AGAPITO ALEXANDRA DO REPORT #: [id number] REPORT IS CONFIDENTIAL AND NOT TO BE RELEASED WITHOUT AUTHORIZATION
== END 2018-06-14 00:59 | disposition home or self-care (01) ==
LOC: ED 19:27
DX: K42.9 Umbilical hernia without obstruction or gangrene (principal); I10 Essential (primary) hypertension; E11.9 Type 2 diabetes mellitus without complications; F32.9 Major depressive disorder, single episode, unspecified; F43.10 Post-traumatic stress disorder, unspecified; Z87.891 Personal history of nicotine dependence; Z90.710 Acquired absence of both cervix and uterus; Z90.49 Acquired absence of other specified parts of digestive tract; Z88.5 Allergy status to narcotic agent; Z88.8 Allergy status to other drugs, medicaments and biological substances; Z79.899 Other long term (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
CPT/HCPCS: 74177; 80053; 81001; 83690; 84484; 85025; 93005; 93010; 96361; 99284-25; J2405; J3010; J7030; Q9967

== ENCOUNTER 2018-06-28 00:56 | Emergency (ER) | payer OTHER ==
[~2018-06-28] VITALS: Ht 175.3 cm; Wt 116.7 kg
--- OUTSIDE RECORDS SUMMARY | ~2018-06-28 | XMS | Encounter Summary ---
Demographics + + + | Address | [address] [facility] [address] | | | [place] [address] | + + + | Home Phone [...] | Author | [facility] | | | and [place] | + + + | Organization | [facility] | | | and [place] [...] Team Providers + +------+ + | Care Ratings Analyst Name | Role | Phone | + [...] + | 06/07/ | Office | [facility] | Andre Caballero | Chronic pain of both | | 2019 | Visit | ORTHOPEDIC SURGERY | MD Rojelio [address] [place] [address] | knees (Primary Dx); | | | | [address] [facility] | [place] | Primary | | | | [place] | [address] | osteoarthritis of | | | | [address] | | both knees | | | | [phone] | | | +--------+---------+ + + + [...] 1602 PDT | + + + + documented in this encounter Progress Notes Andre Caballero MD - 06/07/2018 [facility] a [facility] of bilateral knee pain. She has a 5-year history of bilateral knee pain. She received bilateral knee i njections from Dr. Morgan approximate 4 years ago [...] back in the futur e as needed. document ed in this encounter Plan of Treatment +--------+---------+ + + + | Date | Type | Specialty | Care Team | Description | +--------+---------+ + + + | 07/06/ | Office | Sleep Medicine | Sundeep Ba PA | | | 2018 | Visit | | [address] | | | | | | [place] | | | | | | [address] | | | | | | | | +--------+---------+ + + + | 07/11/ | Office | Orthopedic Surgery | Andre Caballero | | 2018 | Visit | MD [address] | | | | | | [place] | | | | | | [address] | | | | | | | | +--------+---------+ + + + documented as of this encounter Results XR Knee Left 1 - 2 Vw (06/07/2018 16:21 PDT) + + | Specimen | + [...] + + | Performing | Address | City/State/[place] [facility] | Phone Number | | Organization | | | | + +---------+ + + | [facility] | | | | + +---------+ + + XR Knee Right 4 + Vw (06/07/2018 16:21 PDT) + + | Specimen | + [...] 9 mg 9 mg, | | 19 17:46 | | | ht | | [...] 9 mg 9 mg, | | 19 17:46 | | | t | | Intra-articular, ONCE, Wed | | PDT | | | | | 06/07/18 at 1815, For 1 dose, | | | | | | | Shake well. Not for IV use., | | | | | | + +-------+ +------+---+ + +---+---+ | | | +---+---+ documented in this encounter
--- OUTSIDE RECORDS SUMMARY | ~2018-06-28 | XMS | Clinical Summary ---
Demographics + + + | Address | [address] [facility] [address] | | | [place] [address] | + + + | Home Phone [...] Author | [facility] | | | and [place] | + + + | Organization | [facility] | [...] Team Providers + +------+ + | Care Biologist Aide Name | Role | Phone | + [...] | | + + + +---------+------+------+-------+ | DULoxetine | One capsule by mouth | | 0 | 06/0 | | Activ | | (CYMBALTA) 60 MG | once daily | | | 8/20 | | e | | capsule | | | | 12 | | | + + + +---------+------+------+-------+ | metformin | Take 1,000 mg by | | 0 | 06/0 | | Activ | | (GLUCOPHAGE) 1000 MG | mouth 2 times daily. | | | 8/20 | | e | | tablet | | | | 12 | | | + + + +---------+------+------+-------+ | SUMAtriptan | Take 100 mg by mouth | | 0 | | | Activ | | (IMITREX) 100 mg | as needed for | | | | | e | | tablet | Migraine. | | | | | | + + + +---------+------+------+-------+ | UNABLE TO FIND | Med Name: Resmed | | 0 | | | Activ | | | AirSense 10 autoset | | | | | e | | | CPAP: 9-20cm | | | | | | + + + +---------+------+------+-------+ | LORazepam (ATIVAN) | Take 0.5 mg by mouth | | 0 | 04/1 | | Activ | | 0.5 mg tablet | Daily. | | | 6/20 | | e | | | | | | 16 | | | + + + +---------+------+------+-------+ | lisinopril | Take 10 mg by mouth | | 0 | 05/0 | | Activ | | (PRINIVIL, ZESTRIL) | Daily. | | | 12/01 | | e | | 10 mg tablet | | | | 16 | | | + + + +---------+------+------+-------+ | ergocalciferol | Take 50,000 Units by | | 0 | 05/ | | Activ | | (VITAMIN D-2) 50,000 | mouth Once a week. | | | 09/30 | | e | | units capsule | | | | 16 | | | + + + +---------+------+------+-------+ | promethazine | Take 1 tablet by | 56 | 0 | 08/12 | | Activ | | (PHENERGAN) 25 mg | mouth every 4 hours | tablet | | 2/20 | | e | | tablet | as needed. | | | 17 | | | + + + +---------+------+------+-------+ | dicyclomine | Take 20 mg by mouth | | 0 | | | Activ | | (BENTYL) 20 MG | every 6 hours. | | | | | e | | tablet | | | | | | | + + + +---------+------+------+-------+ | naproxen | Take 500 mg by mouth | | 0 | | | Activ | | (NAPROSYN) 500 mg | 2 times daily (with | | | | | e | | tablet | breakfast & | | | | | | | | dinner). | | | | | | + + + +---------+------+------+-------+ | albuterol (PROAIR | Inhale 2 puffs into | | 0 | | | Activ | | HFA) 90 mcg/puff | the lungs every 6 | | | | | e | | inhaler | hours as needed for | | | | | | | | Wheezing. | | | | | | + + + +---------+------+------+-------+ | Multiple | Take 1 tablet by | | 0 | | | Activ | | Vitamins-Minerals | mouth Daily. | | | | | e | | (CENTRUM SILVER PO) | | | | | | | + + + +---------+------+------+-------+ | ARIPiprazole | take 1 tablet by | | 0 | 07/2 | | Activ | | (ABILIFY) 30 MG | mouth once daily | | | 4/20 | | e | | tablet | | | | 18 | | | + + + +---------+------+------+-------+ | | take 1 tablet by | | 0 | 07/0 | | Activ | | hydroCHLOROthiazide | mouth once daily IN | | | 5/20 | | e | | 25 mg tablet | THE MORNING | | | 18 | | | + + + +---------+------+------+-------+ | dicyclomine | | | 0 | 07/2 | | Activ | | (BENTYL) 10 mg | | | | 4/20 | | e | | capsule | | | | 18 | | | + + + +---------+------+------+-------+ | cyclobenzaprine | | | 0 | 07/2 | | Activ | | (FLEXERIL) 5 MG | | | | 4/20 | | e | | tablet | | | | 18 | | | + + + +---------+------+------+-------+ | | take 1 tablet by | | 0 | 08/0 | | Activ | | HYDROcodone-acetamin | mouth four times a | | | 2/20 | | e | | ophen (NORCO) 10-325 | day if needed for | | | 18 | | | | mg per tablet | pain | | | | | | + + + +---------+------+------+-------+ | LORazepam (ATIVAN) | take 1/2 to [...] | | | | + + + +---------+------+------+-------+ | prazosin | | | 0 | 07/2 | | Activ | | (MINIPRESS) 1 mg | | | | 4/20 | | e | | capsule | | | | 18 | | | + + + +---------+------+------+-------+ | Magnesium 400 MG | Take by mouth. | | 0 | | | Activ | | CAPS | | | | | | e | + + + +---------+------+------+-------+ | Blood Glucose | TEST BLOOD GLUCOSE 1 | | 0 | 11/12 | | Activ | | Monitoring Suppl | TO 2 TIMES DAILY | | | 10/31 | | e | | (FREESTYLE LITE) | | | | 18 | | | | SERG | | | | | | | + + + +---------+------+------+-------+ | famotidine | 20 mg Daily. | | 0 | / | | Activ | | (PEPCID) 20 mg | | | | 20 | | e | | tablet | | | | 18 | | | + + + +---------+------+------+-------+ | FREESTYLE LITE | CHECK BLOOD SUGAR | | 0 | 11/12 | | Activ | | strip | EVERY MORNING AND 1 | | | 10/31 | | e | | | TO 2 TIMES | | | 18 | | | | | THROUGHOUT THE DAY | | | | | | + + + +---------+------+------+-------+ | FLUCELVAX | inject 0.5 | | 0 | 10/2 | | Activ | | QUADRIVALENT 0.5 ML | milliliter | | | 5/20 | | e | | vaccine injection | intramuscularly | | | 18 | | | + + + +---------+------+------+-------+ | FREESTYLE LANCETS | CHECK BLOOD SUGAR | | 0 | 09/1 | | Activ | | MISC | every morning and 1 | | | 8/20 | | e | | | TO 2 TIMES | | | 18 | | | | | THROUGHOUT THE DAY | | | | | | + + + +---------+------+------+-------+ | | Take 1-2 tablets by | 15 | 0 | 01/1 | | Activ | | oxyCODONE-acetaminop | mouth every 6 hours | tablet | | 4/20 | | e | | hen (PERCOCET) 5-325 | as needed for Pain. | | | 19 | | | | mg per tablet | | | | | | | + + + +---------+------+------+-------+ | ibuprofen | take 1 tablet by | | 0 | 05/12 | | Activ | | (ADVIL,MOTRIN) 800 | mouth three times a | | | 04/02 | | e | | MG tablet | day for 10 days | | | 19 | | | + + + +---------+------+------+-------+ + + +-------+ +------+------+-------+ | Hospital, Clinic, [...] | | IMO Problem List Replacement - 2017_Regulatory_1 | + + + + + | [...] + | Overview: Overview: | | HYDROCODONE 5/500. 28 PER MONTH | + + + [...] of suicidal ideation. Goes to | | [facility]. Psychiatric meds prescribed by Dr PizanoDx Name | | changed by system update on 12/24/2016Overview: History of | | suicidal ideation. Goes to [facility]. Psychiatric meds prescribed | | by Dr PizanoDx Name changed by system update on 12/24/2016 | | | |Overview: | |History of suicidal ideation. Goes to [facility]. Psychiatric meds prescribed by | | Dr [...] 2019 | Visit | | [address] | | | | | | [place] | | | | | | [address] | | | | | | | | +--------+---------+ + + + | 07/11/ | Office | | Andre Caballero | | | 2019 | Visit | | MD Rojelio [address] | | | | | | [place] | | | | | | [address] | | | | | | | [...] Cancer | | | | | Screening (Ages | 5 | | | | 50-74) | | | | + + [...] this | | VW | e | 16:21 PDT | both knees | procedure are in the | | | | | | results section. | + +--------+ + + + | XR KNEE RIGHT 4 + VW | Routin | 06/07/2018 | Chronic pain of | Results for this | | | e | 16:21 PDT | both knees | procedure are [...] | [employer] | [employer] | [id number] | 09/12/19 | [phone] | | Medica [...] Self | [birth year] | [address] | | | al/Fam | | 1956 | [phone] | [address] [place] | | | [place] | | | [address] (Home) | [phone] | + +--------+ +--------+ + + Advance Directives Patient has advance care planning documents on file. For more information, please contact:[facility] [place] [address]
--- OUTSIDE RECORDS SUMMARY | ~2018-06-28 | XMS | Encounter Summary ---
Demographics + + + | Address | [address] [facility] [address] | | | [place] [address] | + + + | Home Phone | | + + + | Preferred Language | Unknown | + + + | Marital Status | | + + + | Zoroastrian Affiliation | 1013 | + + + | Race | Unknown | + + + | Ethnic Group | Unknown | + + + Author + + + | Author | [facility] | | | and [place] | + + + | Organization | [facility] | [...] Team Providers + +------+ + | Care Procurement Analyst Name | Role | Phone | [...] | SLEEP DISORDER [address] | [address] | Dx) | | | | [address] [place] | [place] | | | | | [place] [address] | [address] | | | | | [phone] | | | +--------+---------+ + + + [...] + + | Pulse | 89 | 04/05/20185 PST | + + + + | [...] Weight | 122.3 kg (269 lb | 04/05/20181514 PST | | | 11.7 oz) | | + + + + | Height | - | - | + + + + | Body Mass Index | 39.83 | 03/27/2018 1257 PST | + + + + documented in this encounter Progress Notes Sundeep Ba PA - 04/05/2018 1530 PST Subjective: Patient ID: Luz Maria Carmona is a 62 y.o. female. HPI last office visit was: 01/31/2018 date of split-night polysomnography: 12/03/2014 AHI: 62.1 RDI: 69.2 O2%: 74% with 27.0 minutes below 88% Machine type: ResMed AirSense 10 Mask type: nasal mask DME: [facility] [place] pressure: 9-20 cm (lowered to 4-8 cm [...] Exam Assessment: Problem #1: OBSTRUCTIVE SLEEP APNEA (PIW01-X36.33) This is controlled with CPAP. She improved her usage with her CPAP, but is still inconsist ent with it. Plan: 1. She is to continue with CPAP indefinitely. 2. She is to work toward wearing her CPAP 100% of the time she is asleep. I will follow up again in 2 months, sooner prn. Fifteen minutes were spent [id number], w ith the majority of time spent in counseling. Sundeep Ba PA-C cc: Abimael Devlin MD documented in this encount er Plan of Treatment +--------+---------+ + + + | Date | Type | Specialty | Care Team | Description | +--------+---------+ + + + | 07/06/ | Office | Sleep Medicine | Sundeep Ba PA | | | 2018 | Visit | | [address] | | | | | | [place] | | | | | | [id number] | | | | | | | | +--------+---------+ + + + | 07/11/ | Office | Orthopedic Surgery | Andre Caballero | | | 2018 | Visit | | MD [address] | | | | | | [place] | | | | | | [address] | | | | | | | | +--------+---------+ + + + documented as of this encounter Visit Diagnoses + + | Diagnosis | + + | CONSUELO on CPAP - Primary Obstructive sleep apnea (adult) (pediatric) | + + documented in this encounter
--- OUTSIDE RECORDS SUMMARY | ~2018-06-28 | XMS | Encounter Summary ---
Demographics + + + | Address | [address] [facility] | | | [place] [address] | + + + | Home Phone [...] Author | [facility] | | | and [place] | + + + | Organization | [facility] | [...] Team Providers + +------+ + | Care Vegetable Trimmer Name | Role | Phone | [...] + + | 06/07/ | Office | [facility] | Andre Caballero | Chronic pain of both | | 2019 | Visit | ORTHOPEDIC SURGERY | MD Rojelio [address] [place] [address] | knees (Primary Dx); | | | | [address] [facility] | [place] | Primary | | | | [place], [place] | [address] | osteoarthritis of | | | | [address] | | both knees | | | | [phone] | | | +--------+---------+ + + + [...] Notes Andre Caballero MD - 06/07/2018 1600 PDTJaspalv[facility] administration returns for a complaint of bilateral knee [...] + + | Performing | Address | City/State[facility] | Phone Number | | Organization [...]
--- OUTSIDE RECORDS SUMMARY | ~2018-06-28 | XMS | Clinical Summary ---
Demographics + + + | Address | [address] | | | [place] [address] | + + + | Home Phone | | + + + | Preferred Language | Unknown | + + + | Marital Status | Single | + + + | Muslim Affiliation | Unknown | + + + | Race | Unknown | + + + | Ethnic Group | Unknown | + + + Author + + + | Author | [facility] | + + + | Organization | [facility] | + + + | Address | Unknown | + + + | Phone | Unavailable | + + + Support + + +---------+ + | Name | Relationship | Address | Phone | + + +---------+ + | Christina Muhammad | ECON | Unknown | | + + +---------+ + Care Team Providers + +------+ + | Care Flame Channeler Name | Role | Phone | + [...] + + | Father | | | [place] | | | | (Age | | [...] Vaccine: Influenza | | | | | (Season Ended) | 9 | | | + + [...] +------+-------+ + | MEDICAID | [place] | [id number] | | | [address] | | | N | | | | [place] | | | [place] | | | | [phone] | | | BACK TENDER INSULATION BOARD | | | | | + +--------+ [...] | Self | [birth year] | Home: | [address] [place] [address] | | | al/Fam | | 1956 | [phone] | [address] [place] | | | [place] | | | [phone] | + +--------+ +--------+ + +
--- OUTSIDE RECORDS SUMMARY | ~2018-06-28 | XMS | Clinical Summary ---
Demographics + + + | Address | [address] | | | [place] [address] | + + + | Home Phone | | + + + | Preferred Language | Unknown | + + + | Marital Status | Single | + + + | Druze Affiliation | Unknown | + + + | Race | Unknown | + + + | Ethnic Group | Unknown | + + + Author + + + | Author | [facility] | + + + | Organization | [facility] | + + + | Address | Unknown | + + + | Phone | Unavailable | + + + Support + + +---------+ + | Name | Relationship | Address | Phone | + + +---------+ + | Christina Muhammad | ECON | Unknown | | + + +---------+ + Care Team Providers + +------+ + | Care Stock Pitcher Name | Role | Phone | + [...] + + | Father | | | [place] | | | | (Age | | [...] +------+-------+ + | MEDICAID | [place] | [id number] | | | [address] | | | N | | | | [place] | | | [place] | | | | [address] | | | BUSINESS DEVELOPMENT AGENT | | | | | + +--------+ [...] | Self | [birth year] | Home: | [address] [place] [address] | | | al/Fam | | 1956 | [phone] | [address] [place] | | | [place] | | | [phone] | [phone] | + +--------+ +--------+ + +
--- OUTSIDE RECORDS SUMMARY | ~2018-06-28 | XMS | Encounter Summary ---
Demographics + + + | Address | [address] [facility] [address] | | | [place] [address] | + + + | Home Phone | | + + + | Preferred Language | Unknown | + + + | Marital Status | | + + + | Taoist Affiliation | 1013 | + + + | Race | Unknown | + + + | Ethnic Group | Unknown | + + + Author + + + | Author | [facility] | | | and [place] | + + + | Organization | [facility] | | | [...] Providers + +------+ + | Care Correctional Officer Name | Role | Phone | [...] SLEEP DISORDER 401 | [address] | Dx) | | | | [address] | [place] | | | | | [place] [address] | [address] | | | | | [phone] | | | +--------+---------+ + + + [...] AirSense 10 Mask type: nasal mask DME: [facility] in [place] pressure: 9-20 cm (lowered to 4-8 cm [...] Exam Assessment: Problem #1: OBSTRUCTIVE SLEEP APNEA ([id number]) This is controlled with CPAP. She improved her usage with her CPAP, but is still inconsist ent with it. Plan: 1. She is to continue with CPAP indefinitely. 2. She is to work toward wearing her CPAP 100% of the time she is asleep. I will follow up again in 2 months, sooner prn. Fifteen minutes were spent [id number], w ith the majority of time spent [...] [place] | | | | | | [id number] | | | | | | | | +--------+---------+ + + + | 07/11/ | Office | Orthopedic Surgery | Andre Caballero | | | 2018 | Visit | | MD Dez Serrato | | | | | | [place] | | | | | | [address] | | | | | | | | +--------+---------+ + + + documented as of this encounter Visit Diagnoses + + | Diagnosis | + + | CONSUELO on CPAP - Primary Obstructive sleep apnea (adult) (pediatric) | + + documented in this encounter
--- OUTSIDE RECORDS SUMMARY | ~2018-06-28 | XMS | Encounter Summary ---
Demographics + + + | Address | [address] [facility] [address] | | | [place] [address] | + + + | Home Phone [...] | Author | [facility] | | | and [place] | + + + | Organization | [facility] | | [...] Team Providers + +------+ + | Care Campus Recruiting Internship Name | Role | Phone | + +------+ + | Abimael Devlin MD | PCP | | + +------+ + Encounter Details +--------+ + + + + | Date | Type | Department | Care Team | Description | +--------+ + + + + | 06/07/ | [facility] | [facility] | Andre Caballero | Chronic pain of both | | 2019 | Encounter | MED [facility] YAZMIN Serrato MD [address] | knees | | | | [address] | [place] | | | | | [place] | [address] | | | | | [address] | | | | | | [phone] | | | +--------+ + + + [...] | | 16 | | + + + +---------+ + [...] 2019 | Visit | | [address] | | | | | | [place] | | | | | | [address] | | | | | | | | +--------+---------+ + + + | 07/11/ | Office | Orthopedic Surgery | Andre Caballero | | | 2018 | Visit | | MD Dez Serrato [address] | | | | | | [place] | | | | | | [address] | | | | | | | [...] + + | Performing | Address | City[facility] | Phone Number | | [...] + + | Performing | Address | City/State[facility] | Phone Number | | Organization | | | | + +---------+ + + | [facility] | | | | + +---------+ + + documented in this encounter Visit Diagnoses + + | Diagnosis | + + | Chronic pain of both knees | + + documented in this encounter"
--- OUTSIDE RECORDS SUMMARY | ~2018-06-28 | XMS | Encounter Summary ---
Demographics + + + | Address | [address] [facility] [address] | | | [place] [address] | + + + | Home Phone [...] Author | [facility] | | | and [place] | + + + | Organization | [facility] | | | and [...] + +------+ + | Care Director Of Marketing Operations Name | Role | Phone | + +------+ + | Abimael Devlin MD | PCP | | + +------+ + Encounter Details +--------+ + + + + | Date | Type | Department | Care Team | Description | +--------+ + + + + | 06/07/ | [facility] | Andre Caballero | Chronic pain of both | | 2019 | Encounter | MED CTR YAZMIN Serrato MD [address] | knees | | | | [address] | [place] | | | | | [place] | [address] | | | | | [address] | | | | | | [phone] | | | +--------+ + + + [...] 2019 | Visit | | [address] | | | | | | [place] | | | | | | [address] | | | | | | | | +--------+---------+ + + + | 07/11/ | Office | Orthopedic Surgery | Andre Caballero | | | 2018 | Visit | | MD Dez Serrato [address] | | | | | | [place] | | | | | | [address] | | | | | | | [...] + + | Performing | Address | City[facility] | Phone Number | [...] + + | Performing | Address | City/State/[facility] | Phone Number | | Organization | | | | + +---------+ + + | [facility] | | | | + +---------+ + + documented in this encounter Visit Diagnoses + + | Diagnosis | + + | Chronic pain of both knees | + + documented in this encounter"
--- OUTSIDE RECORDS SUMMARY | ~2018-06-28 | XMS | Clinical Summary ---
Demographics + + + | Address | [address] [facility] [address] | | | [place] [address] | + + + | Home Phone [...] + + | Author | [facility] | | | and [place] | + + + | Organization | [facility] | [...] Team Providers + +------+ + | Care Gasket Former Name | Role | Phone | + [...] of suicidal ideation. Goes to | | [facility]. Psychiatric meds prescribed by Dr PizanoDx Name | | changed by system update on 12/24/2016Overview: History of | | suicidal ideation. Goes to [facility]. Psychiatric meds prescribed | | by Dr PizanoDx Name changed by system update on 12/24/2016 | | | |Overview: | |History of suicidal ideation. Goes to [facility]. Psychiatric meds prescribed by | | Dr [...] 2019 | Visit | | [address] | | | | | | [place] | | | | | | [address] | | | | | | | | +--------+---------+ + + + | 07/11/ | Office | | Andre Caballero | | | 2019 | Visit | | MD Rojelio [address] | | | | | | [place] | | | | | | [address] | | | | | | | [...] | [employer] | [facility] | [id number] | 09/12/19 | [phone] | | Medica [...] [place] | | | [address] (Home) | [address] | + +--------+ +--------+ + + Advance Directives Patient has advance care planning documents on file. For more information, please contact:[facility] [place] [address]
--- OUTSIDE RECORDS SUMMARY | 2018-06-28 00:58 | XMS ---
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 Events No recent Security Events currently on file CRITERIA MET - [facility] - Has Care Guidelines - PDMP - [facility] - 2 Visits in 30 Days CARE PROVIDERS SANJEEV BREAUX Family [facility] 05/23/2018-Current PHONE: [phone] Raissa Ng Mold Shop Supervisor/Director Of Midwifery/Staff Midwife 07/12/2016-Current PHONE: [phone] Sherry Gibson Mold Shop Supervisor/Director Of Midwifery/Staff Midwife 07/12/2016-Current PHONE: [phone] Sherry Gibson Primary Care 07/12/2016-Current PHONE: [phone] Fernie Higgins Current [place] PHONE: Unknown Jenniffer Verduzco Other Current Orthopedic Surgery \T\ Fracture Clinic PHONE: Unknown Delgado has no Care Guidelines for this patient. Care History Medical/Surgical 06/14/2018 [facility] CASE MANAGEMENT REFERRAL MADE- PATIENT HAS [facility] AND NO PCP. [place] VISIT COUNT (12 MO.) 1 Jeanette Lawson M[facility] [address] [facility] TOTAL 5 NOTE: Visits indicate total known visits. ED/UCC VISIT TRACKING (12 MO.) 06/28/2018 00:56 [facility] [place] TYPE: Emergency COMPLAINT: - COUGH,NAUSEA,SOB 06/13/2018 19:28 [facility] [place] TYPE: Emergency COMPLAINT: - ABD PAIN/CRAMPING DIAGNOSES: - Type 2 diabetes mellitus without complications - Umbilical hernia without obstruction or gangrene - Other [facility] (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 - Unspecified abdominal pain - Major depressive disorder, single episode, unspecified - Allergy status to narcotic agent status - Essential (primary) hypertension - Acquired absence of both cervix and uterus - Allergy status to other drugs, medicaments and biological substances status - Acquired absence of other specified parts of digestive tract - Post-traumatic stress disorder, unspecified - Personal history of nicotine dependence 05/22/2018 09:12 [facility] TYPE: Emergency COMPLAINT: - R ARM PAIN/INJURY/MSE TO CLINIC DIAGNOSES: - Pain in right arm 03/27/2018 12:22 [facility] Dayana BEASLEY TYPE: Emergency DIAGNOSES: - back [...] depressive disorder, single episode, unspecified - Other intermediate frame tender (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 - Essential (primary) hypertension INPATIENT VISIT TRACKING (12 MO.) No inpatient visits to display in this time frame [email or web address]
[2018-06-28] MEDS ORDERED: VENTOLIN HFA18 GM INH (01:20)
[2018-06-28] MEDS ORDERED: PREDNISONE20 MG PO (03:10)
== END 2018-06-28 03:21 | disposition home or self-care (01) ==
LOC: ED 00:56
DX: J20.9 Acute bronchitis, unspecified (principal); I10 Essential (primary) hypertension; E11.9 Type 2 diabetes mellitus without complications; F32.9 Major depressive disorder, single episode, unspecified; F43.10 Post-traumatic stress disorder, unspecified; Z87.891 Personal history of nicotine dependence; Z88.5 Allergy status to narcotic agent; Z88.8 Allergy status to other drugs, medicaments and biological substances; Z79.899 Other long term (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; Z79.84 Long term (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 of oral 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 drugs; Z79.891 Long term (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 of opiate analgesic
CPT/HCPCS: 71045; 87502; 94644; 96374; 99283-25; J1885; J7512

== ENCOUNTER 2018-12-04 19:22 | Emergency (ER) | payer OTHER ==
[~2018-12-04] VITALS: Ht 175.3 cm; Wt 108.9 kg
[~2018-12-04 19:22] MED LIST changes: +BANOPHEN25 M1 PO; +VENTOLIN HFA18 GM INH
--- OUTSIDE RECORDS SUMMARY | 2018-12-04 19:26 | XMS ---
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 No recent Security Events currently on file CRITERIA MET - [facility] [place] - PDMP CARE PROVIDERS SANJEEV BREAUX [facility] 05/23/2018-Current PHONE: [phone] [facility] 07/12/2016-Current PHONE: [phone] Fernie Higgins Current PHONE: Unknown Jenniffer Ruiz Current Orthopedic Surgery \T\ [facility] PHONE: Unknown Guidelines Source: Román Gonzales Guidelines Date: 06/29/2018 Care Coordination: Currently engaged in mental health services with [email or web address].\T\nbsp; Please contact [email or web address] with mental health concerns.\T\nbsp; [place]/[facility]: \T\nbsp; [phone]\T\nbsp; \T\nbsp; [facility]: [phone]. Care History Medical/Surgical 06/14/2018 [facility] CASE MANAGEMENT REFERRAL MADE- PATIENT HAS [facility] AND NO PCP. E.DKaya VISIT COUNT (12 MO.) 1 [facility] 6 [facility]. TOTAL 7 NOTE: Visits indicate total known visits. ED/UCC VISIT TRACKING (12 MO.) 12/04/2018 19:23 [facility] Shahony Roland [facility]a [place] TYPE: Emergency COMPLAINT: - ABDOMINAL PAIN 10/02/2018 19:19 [facility]STA Vila CarmenKaya [facility] TYPE: Emergency COMPLAINT: - ABD PAIN DIAGNOSES: - Allergy status to other drugs, medicaments and biological substances status - Other fci (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 - Type 2 diabetes mellitus without complications - Essential (primary) hypertension - Unspecified abdominal pain - Other chronic pain - Major depressive disorder, single episode, unspecified - Allergy status to narcotic agent status 10/02/2018 02:20 CHRISTA Thurman [place] TYPE: Emergency COMPLAINT: - ABDOMINAL PAIN DIAGNOSES: - Essential (primary) hypertension - Other fci (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 - Hypo-osmolality and hyponatremia - Type 2 diabetes mellitus without complications - Allergy status to other drugs, medicaments and biological substances status - Ventral hernia without obstruction or gangrene - Unspecified abdominal pain - Allergy status to narcotic agent status - Major depressive disorder, single episode, unspecified 06/28/2018 00:56 [facility] [place] TYPE: Emergency COMPLAINT: - COUGH,NAUSEA,SOB DIAGNOSES: - jail (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 of opiate analgesic - Allergy status to narcotic agent status - Essential (primary) hypertension - Type 2 diabetes mellitus without complications - Personal history of nicotine dependence - Allergy status to other drugs, medicaments and biological substances status - Acute bronchitis, unspecified - Cough - Other fci (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 - Post-traumatic stress disorder, unspecified - 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 - Major depressive disorder, single episode, unspecified 06/13/2018 19:28 [facility] [place] TYPE: Emergency COMPLAINT: - ABD PAIN/CRAMPING DIAGNOSES: - Type 2 diabetes mellitus without complications - Umbilical hernia without obstruction or gangrene - Other fci (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 - Unspecified abdominal pain [...] history of nicotine dependence 05/22/2018 09:12 [facility]RISTA [place] TYPE: Emergency COMPLAINT: - R ARM PAIN/INJURY/MSE TO CLINIC DIAGNOSES: - Pain in right arm [facility] DIAGNOSES: - back pain - Sciatica, unspecified side INPATIENT VISIT TRACKING (12 MO.) No inpatient visits to display in this time frame [email or web address]
[2018-12-04] MEDS ORDERED: MAGNESIUM200 MG PO (19:43)
[2018-12-04] MEDS ORDERED: COLACE100 MG PO (21:35)
== END 2018-12-04 21:46 | disposition home or self-care (01) ==
LOC: ED 19:22
DX: K42.9 Umbilical hernia without obstruction or gangrene (principal); I10 Essential (primary) hypertension; E11.9 Type 2 diabetes mellitus without complications; F32.9 Major depressive disorder, single episode, unspecified; Z87.891 Personal history of nicotine dependence; Z88.5 Allergy status to narcotic agent; Z88.8 Allergy status to other drugs, medicaments and biological substances; Z79.84 Long term (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 of oral 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 drugs; Z79.899 Other long term (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
CPT/HCPCS: 74177; 80053; 81001; 83690; 85025; 99284-25; J1170; J1885; J2405

== ENCOUNTER 2019-01-30 20:48 | Inpatient (IN) | payer OTHER ==
[~2019-01-30] VITALS: Ht 175.3 cm; Wt 118.4 kg
--- OUTSIDE RECORDS SUMMARY | ~2019-01-30 | XMS | Encounter Summary ---
Demographics + + + | Address | [address] [facility] [address] | | | [place] [address] | + + + | Home Phone | | + + + | Preferred Language | Unknown | + + + | Marital Status | | + + + | Buddhism Affiliation | 1013 | + + + | Race | Unknown | + + + | Ethnic Group | Unknown | + + + Author + + + | Author | [facility] | | | and [place] | + + + | Organization | [facility] | | | and [place] | + + + | Address | Unknown | + + + | Phone | Unavailable | + + + Support + + +---------+ + | Name | Relationship | Address | Phone | + + +---------+ + | Shasta Yepez | ECON | Unknown | | + + +---------+ + Care Team Providers + +------+ + | Care Hair Spring Cutter Name | Role | Phone | + +------+ + | Abimael Devlin MD | PCP | | + +------+ + Reason for Visit + + + | Reason | Comments | + + + | Knee Pain | EPNP: Bilateral Knee Pain Onset x3-4 years (right Worse then | | | left) | + + + Encounter Details +--------+---------+ + + + | Date | Type | Department | Care Team | Description | +--------+---------+ + + + | 06/07/ | Office | [facility] | Andre Caballero | Chronic pain of both | | 2019 | Visit | ORTHOPEDIC SURGERY | MD Rojelio [address] [place] [address] | knees (Primary Dx); | | | | [address] [facility] | [facility] [place] | Primary | | | | [place], [place] | [address] | osteoarthritis of | | | | [address] | | both knees | | | | [phone] | | | +--------+---------+ + + + Social History + + + +--------+------+ | Tobacco Use | Types | Packs/Day | Years | Date | | | | | Used | | + + + +--------+------+ | Current Every Day | Cigarettes | 0.75 | 20 | | | Smoker | | | | | + + + +--------+------+ + +---+---+---+ | Smokeless Tobacco: | | | | | Never Used | | | | + +---+---+---+ + + +---------+ + | Alcohol Use | Drinks/Week | oz/Week | Comments | + + +---------+ + | Yes | 0 Standard drinks | 0.0 | 2 drinks/year | | | or equivalent | | | + + +---------+ + + + + | Sex Assigned at | Date Recorded | | | | + + + | Not on file | | + + + + + + + | Job Start Date | Occupation | Industry | + + + + | Not on file | Not on file | Not on file | + + + + + + + + | Travel History | Travel Start | Travel End | + + + + + + | No recent travel history available. | + + documented as of this encounter Last Filed Vital Signs + + + + + | Vital Sign | Reading | Time Taken | Comments | + + + + + | Blood Pressure | - | - | | + + + + + | Pulse | - | - | | + + + + + | Temperature | - | - | | + + + + + | Respiratory Rate | - | - | | + + + + + | Oxygen Saturation | - | - | | + + + + + | Inhaled Oxygen | - | - | | | Concentration | | | | + + + + + | Weight | 120.2 kg (265 lb) | 06/07/2018 4:02 PM | | | | | PDT | | + + + + + | Height | 175.3 cm (5' 9") | 06/07/2018 4:02 PM | | | | | PDT | | + + + + + | Body Mass Index | 39.13 | 06/07/2018 4:02 PM | | | | | PDT | | + + + + + documented in this encounter Progress Notes Andre Caballero MD - 06/07/2018 4:00 PM Maria E returns for a complaint of bilate ral knee pain. She has a 5-year history of bilateral knee pain. She received bilateral kn ee injections from Dr. Eddie dent 4 years ago which helped for a number of months. She now has had several months of increasingly severe pain and would like to have her knees reinjected. She states that she has been nicotine free for 2 weeks. She also has been ab le to lose approximately 5 pounds over the past several months. Examination: Exam of both knees reveals that both knees are mildly swollen. However, no ob vious effusion is identified. Palpation reveals that both knees are tender particularly ove r the medial joint lines. Knee ligaments are stable and the neurovascular function is intac t to both feet. Imaging: X-rays are obtained of both knees today and reviewed. these show mild degenerati ve joint disease with some degree of chondrocalcinosis of the meniscal cartilages and mild m edial compartment narrowing. Advice: We recommend continued conservative management. I feel that the option of knee ike int injection is reasonable. Therefore, after obtaining written consent, we proceeded to in ject both knees under sterile conditions and under local anesthesia with a combination of 9 mg of betamethasone, 3 cc of 1% lidocaine, and 3 cc of 1/2% Naropin. She tolerated injectio ns well and hopefully will benefit from them. We will plan to see Luz Maria back in the futur e as needed. docum ented in this encounter Plan of Treatment Not on filedocumented as of this encounter Results XR Knee Left 1 - 2 Vw (06/07/2018 4:21 PM PDT) + + | Specimen | + + | | + + + + + | Narrative | Performed At | + + + | CLINICAL INFORMATION: bilateral knee pain. COMPARISON: | [facility] | | Radiographs dated 12/04/2014 and MRI 12/10/2014. FINDINGS: 4 views | | | each knee. Bones: No fracture or dislocation. No periostitis. | | | Joints: Mild to moderate left medial compartment joint space | | | narrowing. Mild right medial compartment joint space narrowing. | | | No significant lateral compartment or patellofemoral joint space | | | narrowing. However, there is subchondral cortical irregularity at | | | the superior half of the patella articular surface. Small bilateral | | | tricompartment osteophyte formation. Probable mild right joint | | | effusion. Soft tissue: No acute soft tissue abnormality. | | | Mineralization noted within the medial and lateral menisci | | | bilaterally. IMPRESSION - Right knee medial and patellofemoral | | | compartment mild osteoarthritis. Probable mild joint effusion. | | | Left knee medial compartment mild to moderate osteoarthritis. | | | Bilateral meniscal chondrocalcinosis. Dictated and Signed by: | | | Mahesh Daley MD Electronically signed: 06/07/2018 6:22 PM | | + + + + + | Procedure Note | + + | Tha, Rad Results In - 06/07/2018 6:26 PM PDT CLINICAL INFORMATION: bilateral knee | | pain.COMPARISON: Radiographs dated 12/04/2014 and MRI 12/10/2014.FINDINGS: 4 views each | | knee.Bones: No fracture or dislocation. No periostitis.Joints: Mild to moderate left | | medial compartment joint space narrowing. Mildright medial compartment joint space | | narrowing. No significant lateralcompartment or patellofemoral joint space narrowing. | | However, there issubchondral cortical irregularity at the superior half of the patella | | articularsurface. Small bilateral tricompartment osteophyte formation. Probable | | mildright joint effusion.Soft tissue: No acute soft tissue abnormality. Mineralization | | noted within themedial and lateral menisci bilaterally.IMPRESSION -Right knee medial and | | patellofemoral compartment mild osteoarthritis. Probablemild joint effusion.Left knee | | medial compartment mild to moderate osteoarthritis.Bilateral meniscal | | chondrocalcinosis.Dictated and Signed by: Mahesh Daley MD Electronically signed: | | 06/07/2018 6:22 PM | |surface. Small bilateral tricompartment osteophyte formation. Probable mild | |right joint effusion. | | | |Soft tissue: No acute soft tissue abnormality. Mineralization noted within the | |medial and lateral menisci bilaterally. | | | |IMPRESSION - | |Right knee medial and patellofemoral compartment mild osteoarthritis. Probable | |mild joint effusion. | | | |Left knee medial compartment mild to moderate osteoarthritis. | | | |Bilateral meniscal chondrocalcinosis. | | | |Dictated and Signed by: Mahesh Daley MD | | Electronically signed: 06/07/2018 6:22 PM | + + + +---------+ + + | Performing | Address | City/State/Zipcode | Phone Number | | Organization | | | | + +---------+ + + | [facility] | | | | + +---------+ + + XR Knee Right 4 + Vw (06/07/2018 4:21 PM PDT) + + | Specimen | + + | | + + + + + | Narrative | Performed At | + + + | CLINICAL INFORMATION: bilateral knee pain. COMPARISON: | [facility] | | Radiographs dated 12/04/2014 and MRI 12/10/2014. FINDINGS: 4 views | | | each knee. Bones: No fracture or dislocation. No periostitis. | | | Joints: Mild to moderate left medial compartment joint space | | | narrowing. Mild right medial compartment joint space narrowing. | | | No significant lateral compartment or patellofemoral joint space | | | narrowing. However, there is subchondral cortical irregularity at | | | the superior half of the patella articular surface. Small bilateral | | | tricompartment osteophyte formation. Probable mild right joint | | | effusion. Soft tissue: No acute soft tissue abnormality. | | | Mineralization noted within the medial and lateral menisci | | | bilaterally. IMPRESSION - Right knee medial and patellofemoral | | | compartment mild osteoarthritis. Probable mild joint effusion. | | | Left knee medial compartment mild to moderate osteoarthritis. | | | Bilateral meniscal chondrocalcinosis. Dictated and Signed by: | | | Mahesh Daley MD Electronically signed: 06/07/2018 6:22 PM | | + + + + + | Procedure Note | + + | Tha, Rad Results In - 06/07/2018 6:26 PM PDT CLINICAL INFORMATION: bilateral knee | | pain.COMPARISON: Radiographs dated 12/04/2014 and MRI 12/10/2014.FINDINGS: 4 views each | | knee.Bones: No fracture or dislocation. No periostitis.Joints: Mild to moderate left | | medial compartment joint space narrowing. Mildright medial compartment joint space | | narrowing. No significant lateralcompartment or patellofemoral joint space narrowing. | | However, there issubchondral cortical irregularity at the superior half of the patella | | articularsurface. Small bilateral tricompartment osteophyte formation. Probable | | mildright joint effusion.Soft tissue: No acute soft tissue abnormality. Mineralization | | noted within themedial and lateral menisci bilaterally.IMPRESSION -Right knee medial and | | patellofemoral compartment mild osteoarthritis. Probablemild joint effusion.Left knee | | medial compartment mild to moderate osteoarthritis.Bilateral meniscal | | chondrocalcinosis.Dictated and Signed by: Mahesh Daley MD Electronically signed: | | 06/07/2018 6:22 PM | |surface. Small bilateral tricompartment osteophyte formation. Probable mild | |right joint effusion. | | | |Soft tissue: No acute soft tissue abnormality. Mineralization noted within the | |medial and lateral menisci bilaterally. | | | |IMPRESSION - | |Right knee medial and patellofemoral compartment mild osteoarthritis. Probable | |mild joint effusion. | | | |Left knee medial compartment mild to moderate osteoarthritis. | | | |Bilateral meniscal chondrocalcinosis. | | | |Dictated and Signed by: Mahesh Daley MD | | Electronically signed: 06/07/2018 6:22 PM | + + + +---------+ + + | Performing | Address | City/State/Zipcode | Phone Number | | Organization | | | | + +---------+ + + | [facility] | | | | + +---------+ + + documented in this encounter Visit Diagnoses + + | Diagnosis | + + | Chronic pain of both knees - Primary | + + | Primary osteoarthritis of both knees Primary localized osteoarthrosis, lower leg | + + documented in this encounter Administered Medications + +--------+ +------+------+ + | Medication Order | MAR | Action | Dose | Rate | Site | | | Action | Date | | | | + +--------+ +------+------+ + | betamethasone (CELESTONE | Given | 06/08/19 | 9 mg | | Knee-Rig | | SOLUSPAN) injection 9 mg 9 mg, | | 19 5:46 | | | ht | | Intra-articular, ONCE, Wed | | PM PDT | | | | | 06/07/18 at 1815, For 1 dose, | | | | | | | Shake well. Not for IV use., | | | | | | + +--------+ +------+------+ + +---+---+ | | | +---+---+ + +-------+ +------+---+ + | betamethasone (CELESTONE | Given | 06/08/19 | 9 mg | | Knee-Lef | | SOLUSPAN) injection 9 mg 9 mg, | | 19 5:46 | | | t | | Intra-articular, ONCE, Wed | | PM PDT | | | | | 06/07/18 at 1815, For 1 dose, | | | | | | | Shake well. Not for IV use., | | | | | | + +-------+ +------+---+ + +---+---+ | | | +---+---+ documented in this encounter
--- OUTSIDE RECORDS SUMMARY | ~2019-01-30 | XMS | Encounter Summary ---
Demographics + + + | Address | [address] [facility] [address] | | | [place] [address] | + + + | Home Phone | | + + + | Preferred Language | Unknown | + + + | Marital Status | | + + + | Gnosticist Affiliation | 1013 | + + + | Race | Unknown | + + + | Ethnic Group | Unknown | + + + Author + + + | Author | [facility] | | | and [place] | + + + | Organization | [facility] | | | and [place] [...] Team Providers + +------+ + | Care Communications Professional Name | Role | Phone | + +------+ + | Abimael Delvin MD | PCP | | + +------+ + Reason for Referral Evaluate & Treat (Routine) +--------+ + + + + + | Status | Reason | Specialty | Diagnoses / | Referred By | Referred To | | | | | Procedures | Contact | Contact | +--------+ + + + + + | Closed | Specialty | Physical | Diagnoses | [facility] | [facility] | | | Services | Therapy | Primary | [facility] | | | Required | | osteoarthrit | [address] | PHYSICAL | | | | | is of both | [address] | THERAPY [address] | | | | | knees | [place], | [place] | | | | | | [place] [address] | [place], [place] | | | | | | Phone: | [address] | | | | | | [phone] | Phone: | | | | | | Fax: | [phone] | | | | | | [phone] | Fax: | | | | | | | [phone] | +--------+ + + + + + Reason for Visit + + + | Reason | Comments | + + + | Knee Pain | EPNP bilateral knee pain onset years | + + + Evaluate & Treat (Routine) +--------+--------+ + + + + | Status | Reason | Specialty | Diagnoses / | Referred By | Referred To | | | | | Procedures | Contact | Contact | +--------+--------+ + + + + | Closed | | Orthopedic | Diagnoses | Claus, | Fed[place]ico, | | | | Surgery | Right knee | Abimael | Andre Serrato MD | | | | | pain | MD Hans | [address] | | | | | | [address] [place] | | | | | | [address] | [place], [place] | | | | | | [place], | [address] Phone: | | | | | | [place] [address] | [phone] | | | | | | Phone: | Fax: | | | | | | [phone] | [phone] | | | | | | Fax: | | | | | | | [phone] | | +--------+--------+ + + + + Encounter Details +--------+---------+ + + + | Date | Type | Department | Care Team | Description | +--------+---------+ + + + | 09/01/ | Office | [facility] | Federico Andre | Primary | | 2019 | Visit | ORTHOPEDIC SURGERY | MD Rojelio [address] [facility] | osteoarthritis of | | | | [address] [facility] | [place], [place] | both knees (Primary | | | | [place] | [address] | Dx) | | | | [address] | | | | | | [phone] | | | +--------+---------+ + + + [...] + + + + | Weight | 119.7 kg (264 lb) | 09/01/2018 9:40 AM | | | | | PDT | | + + + + + | Height | 175.3 cm (5' 9") | 09/01/2018 9:40 AM | | | | | PDT | | + + + + + | Body Mass Index | 38.99 | 09/01/2018 9:40 AM | | | | | PDT | | + + + + + documented in this encounter Progress Notes Andre Caballero MD - 09/01/2018 9:30 AM Maria E returns for follow-up of her bila teral knee pain. States that she had several weeks of partial relief following the injectio ns given to both of her knees on 06/07/2018 but has now had return of knee joint pain. She s tates that she actually is dealing with a chronic pain disorder and is experiencing discomfo rt throughout her entire body. She is wondering if something can be done nonoperatively fo r her knee pain. Examination: Exam of both knees reveals that they remain mildly swollen. There is no obvio us effusion. She remains tender to palpation surrounding both knees but particularly over t he joint lines and particularly medially. The ligaments remain stable. The patella tracked in the midline. Neurovascular function is intact to both feet. Imaging: X-rays are again reviewed which show mild degenerative change of both knees with g ood maintenance of joint space. Advice: We have discussed our findings with Luz Maria. She has benefited from aqua therapy in the past and we therefore will submit a referral for her to start aqua therapy through [facility] in [place], [place] where she lives. We have encouraged her to kenn in active as this is a an effective strategy for treatment of knee osteoarthrosis. We will see Luz Maria back in the future as needed. documented in this encounter Plan of Treatment + + +--------+ + + | Name | Type | Priori | Associated Diagnoses | Order Schedule | | | | ty | | | + + +--------+ + + | [facility] | Outpatient | Routin | Primary | Ordered: 09/01/2018 | | Hospital Physical | Referral | e | osteoarthritis of | | | Therapy, External - | | | both knees | | | AMB Referral | | | | | + + +--------+ + + documented as of this encounter Visit Diagnoses + + | Diagnosis | + + | Primary osteoarthritis of both knees - Primary Primary localized osteoarthrosis, | | lower leg | + + documented in this encounter
--- OUTSIDE RECORDS SUMMARY | ~2019-01-30 | XMS | Encounter Summary ---
Demographics + + + | Address | [address] [facility] [address] | | | [place] [address] | + + + | Home Phone | | + + + | Preferred Language | Unknown | + + + | Marital Status | | + + + | Taoist Affiliation | 1013 | + + + | Race | Unknown | + + + | Ethnic Group | Unknown | + + + Author + + + | Author | [facility] | | | and [place] | + + + | Organization | [facility] | | | and [place] | [...] Team Providers + +------+ + | Care Table Games Dealer Name | Role | Phone | + +------+ + | Abimael Devlin MD | PCP | | + +------+ + Reason for Visit + + + | Reason | Comments | + + + | Abdominal Pain | | + + + Encounter Details +--------+ + + + + | Date | Type | Department | Care Team | Description | +--------+ + + + + | 08/23/ | Emergency | [facility] | Santos Hong, | Abdominal pain, | | 2017 | | [facility] | MD [address] | acute, generalized | | | | CENTER [address] | [place], [place] | (Primary Dx); | | | | [place], [place] | [address] | Diverticulitis of | | | | [address] | | large intestine | | | | [phone] | | without perforation | | | | | | or abscess without | | | | | | bleeding | +--------+ + + + + Social History + + + +--------+ + | Tobacco Use | Types | Packs/Day | Years | Date | | | | | Used | | + + + +--------+ + | Former Smoker | Cigarettes | 0.5 | 10 | Quit: 06/21/2014 | + + + +--------+ + + +---+---+---+ | Smokeless Tobacco: | | | | | Never Used | | | | + +---+---+---+ + + +---------+ + | Alcohol Use | Drinks/Week | oz/Week | Comments | + + +---------+ + | No | 0 Standard drinks | 0.0 | | | | or equivalent | | [...] + + + | Blood Pressure | 130/79 | 08/23/2016 6:42 PM | | | | | PDT | | + + + + + | Pulse | 79 | 08/23/2016 6:42 PM | | | | | PDT | | + + + + + | Temperature | 35.9 C (96.7 F) | 08/23/2016 3:34 PM | | | | | PDT | | + + + + + | Respiratory Rate | 18 | 08/23/2016 3:34 PM | | | | | PDT | | + + + + + | Oxygen Saturation | 98% | 08/23/2016 6:42 PM | | | | | PDT | | + + + + + | Inhaled Oxygen | - | - | | | Concentration | | | | + + + + + | Weight | 117.9 kg (260 lb) | 08/23/2016 3:34 PM | | | | | PDT | | + + + + + | Height | 172.7 cm (5' 8") | 08/23/2016 3:34 PM | | | | | PDT | | + + + + + | Body Mass Index | 39.53 | 08/23/2016 3:34 PM | | | | | PDT | | + + + + + documented in this encounter Discharge Instructions AttachmentsThe following attachments cannot be sent through Care Everywhere.DIVERTICULITIS, DISCHARGE INSTRUCTIONS FOR (GUATEMALAN)documented in this encounter Medications at Time of Discharge + + + +---------+ + + | Medication | Sig | Dispensed | Refills | Start | End Date | | | | | | Date | | + + + +---------+ + + | DULoxetine | One capsule by mouth | | 0 | 08/20/19 | | | (CYMBALTA) 60 MG | once daily | | | 12 | | | capsule | | | | | | + + + +---------+ + + | ergocalciferol | Take 50,000 Units by | | 0 | 07/29/19 | | | (VITAMIN D-2) 50,000 | mouth Once a week. | | | 16 | | | units capsule | | | | | | + + + +---------+ + + | lamotrigine | One tablet by mouth | | 0 | 08/20/19 | | | (LAMICTAL) 200 MG | morning, Two tablets | | | 12 | | | tablet | by mouth evening | | | | | + + + +---------+ + + | lisinopril | Take 10 mg by mouth | | 0 | 07/21/19 | | | (PRINIVIL, ZESTRIL) | Daily. | | | 16 | | | 10 mg tablet | | | | | | + + + +---------+ + + | metformin | Take 1,000 mg by | | 0 | 08/20/19 | | | (GLUCOPHAGE) 1000 MG | mouth 2 times daily. | | | 12 | | | tablet | | | | | | + + + +---------+ + + | promethazine | Take 1 tablet by | 56 | 0 | 08/24/19 | | | (PHENERGAN) 25 mg | mouth every 4 hours | tablet | | 17 | | | tablet | as needed. | | | | | + + + +---------+ + + | SUMAtriptan | Take 100 mg by mouth | | 0 | | | | (IMITREX) 100 mg | as needed for | | | | | | tablet | Migraine. | | | | | + + + +---------+ + + | UNABLE TO FIND | Med Name: Resmed | | 0 | | | | | AirSense 10 autoset | | | | | | | CPAP: 9-20cm | | | | | + + + +---------+ + + | | Take 1 tablet by | 14 | 0 | 08/24/19 | | | amoxicillin-clavulan | mouth 2 times daily | tablet | | 17 | 7 | | ate (AUGMENTIN) | for 7 days. | | | | | | 875-125 mg per | | | | | | | tablet | | | | | | + + + +---------+ + + | | Take 1 tablet by | 28 | 0 | 08/24/19 | | | amoxicillin-clavulan | mouth 2 times daily | tablet | | 17 | 7 | | ate (AUGMENTIN) | for 14 days. | | | | | | 875-125 mg per | | | | | | | tablet | | | | | | + + + +---------+ + + | ARIPiprazole | Take 30 mg by mouth | | 0 | | | | (ABILIFY) 5 mg | Daily. | | | | 8 | | tablet | | | | | | + + + +---------+ + + | Calcium | Take by mouth 2 | | 0 | 08/20/19 | | | Carbonate-Vitamin D | times daily. | | | 12 | 8 | | 600-200 MG-UNIT TABS | | | | | | + + + +---------+ + + | Ergocalciferol | Take 125 mg by mouth | | 0 | | | | (VITAMIN D2 PO) | Once a week. | | | | 7 | + + + +---------+ + + | ibuprofen (ADVIL, | Take 400 mg by mouth | | 0 | | | | MOTRIN) 400 mg | every 6 hours as | | | | 7 | | tablet | needed for Pain. | | | | | + + + +---------+ + + | LORazepam (ATIVAN) | Take 0.5 mg by mouth | | 0 | 06/28/19 | | | 0.5 mg tablet | Daily. | | | 16 | 9 | + + + +---------+ + + | ondansetron | Take 1 tablet by | 24 | 0 | 11/14/19 | | | (ZOFRAN ODT) 4 mg | mouth every 8 hours | tablet | | 16 | 7 | | disintegrating | as needed for | | | | | | tablet | Nausea. | | | | | + + + +---------+ + + | | Take 1 tablet by | 30 | 0 | 08/24/19 | | | oxyCODONE-acetaminop | mouth every 6 hours | tablet | | 17 | 7 | | hen (PERCOCET) 5-325 | as needed. | | | | | | mg per tablet | | | | | | + + + +---------+ + + | pregabalin | 1 capsule by mouth | 150 | 1 | 11/14/19 | | | (LYRICA) 75 mg | qAM, 1 qNoon, and 2 | capsule | | 16 | 7 | | capsule | qHS for 7 days; then | | | | | | | 1 qAM, 1 qNoon, 1 | | | | | | | qPM and 2 qHS | | | | | + + + +---------+ + + | promethazine | Take 1 tablet by | 56 | 0 | 08/24/19 | | | (PHENERGAN) 25 mg | mouth every 4 hours | tablet | | 17 | 7 | | tablet | as needed. | | | | | + + + +---------+ + + | topiramate | 1 tablet by mouth | 120 | 1 | 01/09/20 | | | (TOPAMAX) 25 mg | qHS for 7 days; then | tablet | | 16 | 7 | | tablet | 1 twice daily for 7 | | | | | | | days; then 1 qAM | | | | | | | and 2 qHS for 7 | | | | | | | days; then 2 twice | | | | | | | daily | | | | | + + + +---------+ + + | verapamil | Take 180 mg by mouth | | 0 | | | | (VERELAN) 180 mg SR | Daily. | | | | 8 | | capsule | | | | | | + + + +---------+ + + documented as of this encounter Plan of Treatment Not on filedocumented as of this encounter Procedures + +--------+ + + + | Procedure Name | Priori | Date/Time | Associated Diagnosis | Comments | | | ty | | | | + +--------+ + + + | CT ABDOMEN PELVIS W | STAT | 08/23/2016 | | Results for this | | CONTRAST | | 6:12 PM | | procedure are in the | | | | PDT | | results section. | + +--------+ + + + | EXTRA LAVENDER TOP | Routin | 08/23/2016 | | Results for this | | TUBE | e | 5:21 PM | | procedure are in the | | | | PDT | | results section. | + +--------+ + + + | EXTRA GREEN TOP TUBE | Routin | 08/23/2016 | | Results for this | | | e | 5:21 PM | | procedure are in the | | | | PDT | | results section. | + +--------+ + + + | EXTRA GOLD TOP TUBE | Routin | 08/23/2016 | | Results for this | | | e | 5:21 PM | | procedure are in the | | | | PDT | | results section. | + +--------+ + + + | EXTRA BLUE TOP TUBE | Routin | 08/23/2016 | | Results for this | | | e | 5:21 PM | | procedure are in the | | | | PDT | | results section. | + +--------+ + + + | CBC WITH | STAT | 08/23/2016 | | Results for this | | DIFFERENTIAL | | 5:21 PM | | procedure are in the | | | | PDT | | results section. | + +--------+ + + + | LIPASE | STAT | 08/23/2016 | | Results for this | | | | 5:21 PM | | procedure are in the | | | | PDT | | results section. | + +--------+ + + + | COMPREHENSIVE | STAT | 08/23/2016 | | Results for this | | METABOLIC PANEL | | 5:21 PM | | procedure are in the | | | | PDT | | results section. | + +--------+ + + + documented in this encounter Results CT Abdomen Pelvis w Contrast (08/23/2016 6:12 PM PDT) + + | Specimen | + + | | + + + + + | Narrative | Performed At | + + + | CT ABDOMEN PELVIS W CONTRAST 08/23/2016 6:07 PM HISTORY: | [facility] | | ABDOMINAL PAIN. COMPARISON: None. PROTOCOL: Axial images of | | | the abdomen and pelvis were obtained after administration of 100 mL | | | Omnipaque 350. Coronal and sagittal reformations were acquired. | | | FINDINGS: LUNG BASE: Visualized lung bases are clear. Heart is | | | normal in size. No evidence of pleural effusion. HEPATOBILIARY: The | | | liver demonstrates normal parenchyma. The gallbladder is surgically | | | absent. No evidence of intrahepatic or extrahepatic biliary ductal | | | dilatation. SPLEEN: Normal parenchyma. No evidence of mass or | | | splenomegaly. PANCREASE: Normal parenchyma. No evidence of pancreatic | | | ductal dilation. ADRENAL GLANDS: No evidence of nodule, mass or | | | suspicious thickening. KIDNEYS: Bilateral kidneys are without | | | evidence of suspicious mass, calculus, or hydronephrosis. There is a | | | 2.1 cm hypodense cystic lesion within the inferior pole the right | | | kidney which demonstrates water density and likely represents a | | | simple cyst. BOWEL: Multiple colonic diverticula are identified which | | | are most prominent in the sigmoid colon with areas low-grade wall | | | thickening, likely related to chronic diverticulosis without definite | | | evidence of pericolic fat stranding to suggest diverticulitis. | | | Appendix is normal. VASCULATURE: Aorta is nonaneurysmal and without | | | evidence of dissection. Scattered atherosclerotic calcifications are | | | seen involving the abdominal aorta. There is no significant | | | abnormality in the portal veins, mesenteric veins, or systemic veins. | | | LYMPH NODES: No enlarged lymph nodes are visualized within the | | | omentum or retroperitoneum. PERITONEUM: There is no evidence for | | | free fluid or free air. BLADDER: Unremarkable. REPRODUCTIVE: | | | Reproductive organs are unremarkable. SOFT TISSUES: There is a | | | fat-containing left periumbilical hernia. No evidence of | | | strangulation. BONES: There are no acute osseous abnormalities. | | | IMPRESSION - 1. Multiple sigmoid colonic diverticula are identified | | | with mild wall thickening within the sigmoid colon, likely | | | representing low-grade inflammation related to chronic diverticulosis | | | with subtle/early diverticulitis unable to be entirely excluded, but | | | thought less likely. 2. Fat-containing left periumbilical hernia | | | with a peritoneal defect measuring 3.1 cm. No evidence of | | | strangulation or bowel obstruction. Dictated | | | and Signed by: Dominic Arvizu MD Electronically signed: 08/23/2016 | | | 6:53 PM | | + + + + + | Procedure Note | + + | Tha, Rad Results In - 08/23/2016 6:[address] ABDOMEN PELVIS W CONTRAST 08/23/2016 | | 6:07 PMHISTORY: ABDOMINAL PAIN.COMPARISON: None.PROTOCOL: Axial images of the abdomen | | and pelvis were obtained afteradministration of 100 mL Omnipaque 350. Coronal and | | sagittal reformations wereacquired.FINDINGS:LUNG BASE: Visualized lung bases are clear. | | Heart is normal in size. No evidenceof pleural effusion. HEPATOBILIARY: The liver | | demonstrates normal parenchyma. The gallbladder issurgically absent. No evidence of | | intrahepatic or extrahepatic biliary ductaldilatation.SPLEEN: Normal parenchyma. No | | evidence of mass or splenomegaly.PANCREASE: Normal parenchyma. No evidence of pancreatic | | ductal dilation.ADRENAL GLANDS: No evidence of nodule, mass or suspicious | | thickening.KIDNEYS: Bilateral kidneys are without evidence of suspicious mass, calculus, | | orhydronephrosis. There is a 2.1 cm hypodense cystic lesion within the inferiorpole the | | right kidney which demonstrates water density and likely represents asimple cyst.BOWEL: | | Multiple colonic diverticula are identified which are most prominent inthe sigmoid | | colon with areas low-grade wall thickening, likely related tochronic diverticulosis | | without definite evidence of pericolic fat stranding tosuggest diverticulitis. Appendix | | is normal.VASCULATURE: Aorta is nonaneurysmal and without evidence of dissection. | | Scattered atherosclerotic calcifications are seen involving the abdominal aorta. There | | is no significant abnormality in the portal veins, mesenteric veins, orsystemic | | veins.LYMPH NODES: No enlarged lymph nodes are visualized within the omentum | | orretroperitoneum. PERITONEUM: There is no evidence for free fluid or free air.BLADDER: | | Unremarkable.REPRODUCTIVE: Reproductive organs are unremarkable. SOFT TISSUES: There is | | a fat-containing left periumbilical hernia. No evidenceof strangulation. BONES: There | | are no acute osseous abnormalities.IMPRESSION -1. Multiple sigmoid colonic diverticula | | are identified with mild wall thickeningwithin the sigmoid colon, likely representing | | low-grade inflammation related tochronic diverticulosis with subtle/early diverticulitis | | unable to be entirelyexcluded, but thought less likely.2. Fat-containing left | | periumbilical hernia with a peritoneal defect measuring3.1 cm. No evidence of | | strangulation or bowel obstruction.Dictated and Signed by: Dominic Arvizu MD | | Electronically signed: 08/23/2016 6:53 PM | |Scattered atherosclerotic calcifications are seen involving the abdominal aorta. | | There is no significant abnormality in the portal veins, mesenteric veins, or | |systemic veins. | |LYMPH NODES: No enlarged lymph nodes are visualized within the omentum or | |retroperitoneum. | |PERITONEUM: There is no evidence for free fluid or free air. | |BLADDER: Unremarkable. | |REPRODUCTIVE: Reproductive organs are unremarkable. | |SOFT TISSUES: There is a fat-containing left periumbilical hernia. No evidence | |of strangulation. | |BONES: There are no acute osseous abnormalities. | | | |IMPRESSION - | |1. Multiple sigmoid colonic diverticula are identified with mild wall thickening | |within the sigmoid colon, likely representing low-grade inflammation related to | |chronic diverticulosis with subtle/early diverticulitis unable to be entirely | |excluded, but thought less likely. | |2. Fat-containing left periumbilical hernia with a peritoneal defect measuring | |3.1 cm. No evidence of strangulation or bowel obstruction. | | | | | | | | | | | | | | | | | |Dictated and Signed by: Dominic Arvizu MD | | Electronically signed: 08/23/2016 6:53 PM | + + + +---------+ + + | Performing | Address | City/State/Zipcode | Phone Number | | Organization | | | | + +---------+ + + | [facility] | | | | + +---------+ + + Extra Lavender Top Tube (08/23/2016 5:21 PM PDT) + +-------+ + + + | Component | Value | Ref Range | Performed | Pathologist | | | | | At | Signature | + +-------+ + + + | Extra | Done | | [facility] | | | Natalie | | | [facility] | | | Top Tube | | | MEDICAL | | | | | | CENTER - | | | | | | LABORATORY | | + +-------+ + + + + + | Specimen | + + | Blood | + + + + + + + | Performing | Address | City/State/Zipcode | Phone Number | | Organization | | | | + + + + + | [facility] | [address] | [place] | [phone] | | [facility] | | [address] | | | - LABORATORY | | | | + + + + + Extra Green Top Tube (08/23/2016 5:21 PM PDT) + +-------+ + + + | Component | Value | Ref Range | Performed | Pathologist | | | | | At | Signature | + +-------+ + + + | Extra Green | Done | | [facility] | | | Top [facility] | | | [facility] | | | | | | MEDICAL | | | | | | CENTER - | | | | | | LABORATORY | | + +-------+ + + + + + | Specimen | + + | Blood | + + + + + + + | Performing | Address | City/State/Zipcode | Phone Number | | Organization | | | | + + + + + | [facility] | [address] | [place] | [phone] | | [facility] | | [address] | | | - LABORATORY | | | | + + + + + Extra Blue Top Tube (08/23/2016 5:21 PM PDT) + +-------+ + + + | Component | Value | Ref Range | Performed | Pathologist | | | | | At | Signature | + +-------+ + + + | Extra Blue | Done | | [facility] | | | Top [facility]ube | | | [facility] | | | | | | MEDICAL | | | | | | CENTER - | | | | | | LABORATORY | | + +-------+ + + + + + | Specimen | + + | Blood | + + + + + + + | Performing | Address | City/State/Zipcode | Phone Number | | Organization | | | | + + + + + | [facility] | [address] | [place] | [phone] | | [facility] | | [address] | | | - LABORATORY | | | | + + + + + Extra Gold Top Tube (08/23/2016 5:21 PM PDT) + +-------+ + + + | Component | Value | Ref Range | Performed | Pathologist | | | | | At | Signature | + +-------+ + + + | Extra Gold | Done | | [facility] | | | Top Tube | | | [facility] | | | | | | MEDICAL | | | | | | CENTER - | | | | | | LABORATORY | | + +-------+ + + + + + | Specimen | + + | Blood | + + + + + + + | Performing | Address | City/State/Zipcode | Phone Number | | Organization | | | | + + + + + | [facility] | [address] | [place] | [phone] | | [facility] | | [address] | | | - LABORATORY | | | | + + + + + Lipase (08/23/2016 5:21 PM PDT) + +-------+ + + + | Component | Value | Ref Range | Performed | Pathologist | | | | | At | Signature | + +-------+ + + + | Lipase | 18 | 0 - 60 U/L | [facility] | | | | | | [facility] | | | | | | MEDICAL | | | | | | CENTER - | | | | | | LABORATORY | | + +-------+ + + + + + | Specimen | + + | Blood | + + + + + + + | Performing | Address | City/State/Zipcode | Phone Number | | Organization | | | | + + + + + | [facility] | [address] | [place] | [phone] | | [facility] | | [address] | | | - LABORATORY | | | | + + + + + Comprehensive Metabolic Panel (08/23/2016 5:21 PM PDT) + + + + + + | Component | Value | Ref Range | Performed | Pathologist | | | | | At | Signature | + + + + + + | Na | 130 (L) | 136 - 149 | [facility] | | | | | mmol/L | [facility] | | | | | | MEDICAL | | | | | | CENTER - | | | | | | LABORATORY | | + + + + + + | K | 4.7 | 3.5 - 5.1 | [facility] | | | | | mmol/L | [facility] | | | | | | MEDICAL | | | | | | CENTER - | | | | | | LABORATORY | | + + + + + + | Cl | 94 (L) | 98 - 109 mmol/L | [facility] | | | | | | [facility] | | | | | | MEDICAL | | | | | | CENTER - | | | | | | LABORATORY | | + + + + + + | CO2 | 27 | 24 - 31 mmol/L | [facility] | | | | | | [facility] | | | | | | MEDICAL | | | | | | CENTER - | | | | | | LABORATORY | | + + + + + + | Anion Gap | 9 | 3 - 16 mmol/L | [facility] | | | | | | [facility] | | | | | | MEDICAL | | | | | | CENTER - | | | | | | LABORATORY | | + + + + + + | Glucose | 90 | 70 - 109 mg/dL | [facility] | | | | | | [facility] | | | | | | MEDICAL | | | | | | CENTER - | | | | | | LABORATORY | | + + + + + + | BUN | 15 | 7 - 18 mg/dL | [facility] | | | | | | [facility] | | | | | | MEDICAL | | | | | | CENTER - | | | | | | LABORATORY | | + + + + + + | Creatinine | 0.65 | 0.60 - 1.30 | [facility] | | | | | mg/dL | [facility] | | | | | | MEDICAL | | | | | | CENTER - | | | | | | LABORATORY | | + + + + + + | eGFR if not | >60Comment: GLOMERULAR | >=60 | [facility] | | | | FILTRATION | mL/min/1.73m2 | [facility] | | | LATVIAN | RATE,ESTIMATED | | MEDICAL | | | | mL/min/1.87e8Zlhx than | | CENTER - | | | | 60 Chronic kidney | | LABORATORY | | | | disease,if found over a | | | | | | 3-month period.Less than | | | | | | 15 Kidney failureFor | | | | | | | | | | | | Americans,multiply the | | | | | | calculated GFR by 1.21. | | | | | | | | | | + + + + + + | Calcium | 9.6 | 8.3 - 10.5 | [facility] | | | | | mg/dL | [facility] | | | | | | MEDICAL | | | | | | CENTER - | | | | | | LABORATORY | | + + + + + + | Albumin | 3.9 | 3.2 - 5.0 g/dL | [facility] | | | | | | [facility] | | | | | | MEDICAL | | | | | | CENTER - | | | | | | LABORATORY | | + + + + + + | Bilirubin | 0.6Comment: This is an | 0.1 - 1.5 mg/dL | [facility] | | | Total | appended report. These | | [facility] | | | | results have been | | MEDICAL | | | | appended to a previously | | CENTER - | | | | preliminary verified | | LABORATORY | | | | report. | | | | + + + + + + | Total | 6.7 | 6.0 - 7.8 g/dL | [facility] | | | Protein | | | [facility] | | | | | | MEDICAL | | | | | | CENTER - | | | | | | LABORATORY | | + + + + + + | AST | 29Comment: This is an | 10 - 42 U/L | [facility] | | | | appended report. These | | [facility] | | | | results have been | | MEDICAL | | | | appended to a previously | | CENTER - | | | | preliminary verified | | LABORATORY | | | | report. | | | | + + + + + + | ALT | 29Comment: This is an | 6 - 45 U/L | [facility] | | | | appended report. These | | [facility] | | | | results have been | | MEDICAL | | | | appended to a previously | | CENTER - | | | | preliminary verified | | LABORATORY | | | | report. | | | | + + + + + + | Alkaline | 42Comment: This is an | 40 - 110 U/L | [facility] | | | Phosphatase | appended report. These | | [facility] | | | | results have been | | MEDICAL | | | | appended to a previously | | CENTER - | | | | preliminary verified | | LABORATORY | | | | report. | | | | + + + + + + | Globulin | 2.8 | 2.1 - 3.8 g/dL | [facility] | | | | | | [facility] | | | | | | MEDICAL | | | | | | CENTER - | | | | | | LABORATORY | | + + + + + + | Albumin/Danielle | 1.4 | 0.8 - 2.0 | [facility] | | | bulin Ratio | | | [facility] | | | | | | MEDICAL | | | | | | CENTER - | | | | | | LABORATORY | | + + + + + + | BUN/Creatin | 23.1 | | [facility] | | | ine Ratio | | | [facility] | | | | | | MEDICAL | | | | | | CENTER - | | | | | | LABORATORY | | + + + + + + + + | Specimen | + + | Blood | + + + + + + + | Performing | Address | City/State/Zipcode | Phone Number | | Organization | | | | + + + + + | [facility] | [address] | [place] | [phone] | | [facility] | | [address] | | | - LABORATORY | | | | + + + + + CBC with Differential (08/23/2016 5:21 PM PDT) + + + + + + | Component | Value | Ref Range | Performed | Pathologist | | | | | At | Signature | + + + + + + | WBC | 12.2 (H) | 4.0 - 11.0 K/uL | [facility] | | | [facility] | | | | | [facility] | | | | | | [facility] - | | | | | | LABORATORY | | + + + + + + | RBC | 4.17 | 3.70 - 5.20 | [facility] | | | | | M/uL | [facility] | | | | | | MEDICAL | | | | | | CENTER - | | | | | | LABORATORY | | + + + + + + | Hemoglobin | 12.3 | 11.5 - 16.0 | [facility] | | | | | g/dL | [facility] | | | | | | MEDICAL | | | | | | CENTER - | | | | | | LABORATORY | | + + + + + + | Hematocrit | 36.5 | 34.0 - 47.0 % | [facility] | | | | | | [facility] | | | | | | MEDICAL | | | | | | CENTER - | | | | | | LABORATORY | | + + + + + + | MCV | 87.6 | 83.0 - 101.0 fL | [facility] | | | | | | [facility] | | | | | | [facility] | | | | | | C[facility] - | | | | | | LABORATORY | | + + + + + + | MCH | 29.5 | 28.0 - 35.0 pg | [facility] | | | | | | [facility] | | | | | | [facility] | | | | | | C[facility] - | | | | | | LABORATORY | | + + + + + + | MCHC | 33.7 | 32.0 - 36.0 | [facility] | | | | | g/dL | [facility] | | | | | | MEDICAL | | | | | | CENTER - | | | | | | LABORATORY | | + + + + + + | RDW-CV | 14.0 | <15.0 % | [facility] | | | | | | [facility] | | | | | | [facility] | | | | | | CENTER - | | | | | | LABORATORY | | + + + + + + | Platelet | 292 | 140 - 440 K/uL | [facility] | | | Count | | | [facility] | | | | | | [facility] | | | | | | CENTER - | | | | | | LABORATORY | | + + + + + + | MPV | 7.2 | fL | [facility] | | | | | | [facility] | | | | | | [facility] | | | | | | C[facility] - | | | | | | LABORATORY | | + + + + + + | % | 59.4 | 45.0 - 82.0 % | [facility] | | | Neutrophils | | | [facility] | | | | | | MEDICAL | | | | | | CENTER - | | | | | | LABORATORY | | + + + + + + | % | 30.6 | 20.0 - 45.0 % | [facility] | | | Lymphocytes | | | [facility] | | | | | | [facility] | | | | | | [facility] - | | | | | | LABORATORY | | + + + + + + | % Monocytes | 7.2 | 4.0 - 12.0 % | [facility] | | | | | | [facility] | | | | | | [facility] | | | | | | [facility] - | | | | | | LABORATORY | | + + + + + + | % | 1.6 | 0.0 - 5.0 % | [facility] | | | Eosinophils | | | [facility] | | | | | | [facility] | | | | | | [facility] - | | | | | | LABORATORY | | + + + + + + | % Basophils | 1.2 (H) | 0.0 - 1.0 % | [facility] | | | | | | [facility] | | | | | | MEDICAL | | | | | | CENTER - | | | | | | LABORATORY | | + + + + + + | Absolute | 7.30 | 1.80 - 8.50 | [facility] | | | Neutrophils | | K/uL | [facility] | | | | | | MEDICAL | | | | | | CENTER - | | | | | | LABORATORY | | + + + + + + | Absolute | 3.80 (H) | 0.60 - 3.20 | [facility] | | | Lymphocytes | | K/uL | [facility] | | | | | | MEDICAL | | | | | | CENTER - | | | | | | LABORATORY | | + + + + + + | Absolute | 0.90 | 0.00 - 1.00 | [facility] | | | Monocytes | | K/uL | [facility] | | | | | | MEDICAL | | | | | | CENTER - | | | | | | LABORATORY | | + + + + + + | Absolute | 0.20 | 0.00 - 0.40 | [facility] | | | Eosinophils | | K/uL | [facility] | | | | | | MEDICAL | | | | | | CENTER - | | | | | | LABORATORY | | + + + + + + | Absolute | 0.10 | 0.00 - 0.10 | [facility] | | | Basophils | | K/uL | [facility] | | | | | | MEDICAL | | | | | | CENTER - | | | | | | LABORATORY | | + + + + + + + + | Specimen | + + | Blood | + + + + + + + | Performing | Address | City/State/Zipcode | Phone Number | | Organization | | | | + + + + + | [facility] | [address] | [place] | [phone] | | [facility] | | [address] | | | - LABORATORY | | | | + + + + + documented in this encounter Visit Diagnoses + + | Diagnosis | + + | Abdominal pain, acute, generalized - Primary Abdominal pain, generalized | + + | Diverticulitis of large intestine without perforation or abscess without bleeding | | Diverticulitis of colon (without mention of hemorrhage) | + + documented in this encounter Administered Medications + +--------+ +------+------+------+ | Medication Order | MAR | Action | Dose | Rate | Site | | | Action | Date | | | | + +--------+ +------+------+------+ | HYDROmorphone (DILAUDID) | Given | 08/24/19 | 1 mg | | | | injection 1 mg 1 mg, | | 17 5:41 | | | | | Intravenous, ONCE, Tue08/23/16 at | | PM PDT | | | | | 1650, For 1 dose | | | | | | + +--------+ +------+------+------+ +---+---+ | | | +---+---+ + +-------+ +---------+---+---+ | iohexol (OMNIPAQUE 350) 350 | Given | 08/24/19 | 100 mLs | | | | mg/mL injection 100 mL 100 mL, | | 17 6:13 | | | | | Intravenous, ONCE PRN, Other, | | PM PDT | | | | | Starting Tue08/23/16 at 1813, For | | | | | | | 1 dose, Cat Scanner | | | | | | + +-------+ +---------+---+---+ +---+---+ | | | +---+---+ + +-------+ +------+---+---+ | ondansetron (ZOFRAN) injection | Given | 08/24/19 | 8 mg | | | | 8 mg 8 mg, Intravenous, ONCE, | | 17 5:44 | | | | | 08/23/16 at 1650, For 1 dose | | PM PDT | | | | + +-------+ +------+---+---+ +---+---+ | | | +---+---+ + +---------+ +--------+-------+---+ | sodium chloride 0.9% (NS) bolus | New Bag | 08/24/19 | 1,000 | 4000 | | | 1,000 mL 1,000 mL, Intravenous, | | 17 5:21 | mLs | mL/hr | | | Administer over 15 Minutes, | | PM PDT | | | | | ONCE, Tue08/23/16 at 1650, For 1 | | | | | | | dose | | | | | | + +---------+ +--------+-------+---+ +---+---+ | | | +---+---+ documented in this encounter
--- OUTSIDE RECORDS SUMMARY | ~2019-01-30 | XMS | Encounter Summary ---
Demographics + + + | Address | [address] | | | [place] [address] | + + + | Home Phone | | + + + | Preferred Language | Unknown | + + + | Marital Status | | + + + | Yazidi Affiliation | 1013 | + + + | Race | Unknown | + + + | Ethnic Group | Unknown | + + + Author + + + | Author | [facility] | | | and [place] | + + + | Organization | [facility] | | | and [place] [...] Team Providers + +------+ + | Care Grid Caster Name | Role | Phone | + +------+ + | Teena Busch NP | PCP | | + +------+ + Encounter Details +--------+ + + + + | Date | Type | Department | Care Team | Description | +--------+ + + + + | 11/25/ | Documentati | [facility] | Sundeep Ba PA | | | 2016 | on | SLEEP DISORDER [address] | [address] | | | | | [address] [place] | [place] | | | | | [place] [address] | [address] | | | | | [phone] | | | +--------+ + + + + Social [...] + + documented as of this encounter Progress Notes Sundeep aB PA - 11/26/2015 2:07 PM PDT"Alma Rosa" was last seen in our office on 6. She did not cancel or show up for her appointment on 11/25/2015. This was her second no- show. She was struggling with her CPAP compliance at her last appointment. She has severe apnea. We will attempt to reschedule this appointment. Sundeep Ba PA-C documented in this enc ounter Plan of Treatment Not on filedocumented as of this encounter Visit Diagnoses Not on filedocumented in this encounter
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
--- OUTSIDE RECORDS SUMMARY | ~2019-01-30 | XMS | Encounter Summary ---
Demographics + + + | Address | [address] | | | [place] [address] | + + + | Home Phone | | + + + | Preferred Language | Unknown | + + + | Marital Status | | + + + | Yazidism Affiliation | 1013 | + + + | Race | Unknown | + + + | Ethnic Group | Unknown | + + + Author + + + | Author | [facility] | | | and [place] | + + + | Organization | [facility] | | | and [place] [...] Team Providers + +------+ + | Care Roller Repairer Name | Role | Phone | + +------+ + | Teena Busch NP | PCP | | + +------+ + Reason for Visit + + + | Reason | Comments | + + + | CPAP Follow Up | | + + + Encounter Details +--------+---------+ + + + | Date | Type | Department | Care Team | Description | +--------+---------+ + + + | 04/14/ | Office | [facility] | Sundeep Ba PA | CONSUELO on CPAP (Primary | | 2016 | Visit | SLEEP DISORDER [address] | [address] | Dx) | | | | [address] [place] | [place] | | | | | [place] [address] | [address] | | | | | [phone] | | | +--------+---------+ + + + [...] this encounter Last Filed Vital Signs + +---------+ + + | Vital Sign | Reading | Time Taken | Comments | + +---------+ + + | Blood Pressure | 122/72 | 04/14/2015 10:20 AM | | | | | PST | | + +---------+ + + | Pulse | 78 | 04/14/2015 10:20 AM | | | | | PST | | + +---------+ + + | Temperature | - | - | | + +---------+ + + | Respiratory Rate | 16 | 04/14/2015 10:20 AM | | | | | PST | | + +---------+ + + | Oxygen Saturation | 93% | 04/14/2015 10:20 AM | | | | | PST | | + +---------+ + + | Inhaled Oxygen | - | - | | | Concentration | | | | + +---------+ + + | Weight | - | - | | + +---------+ + + | Height | - | - | | + +---------+ + + | Body Mass Index | - | - | | + +---------+ + + documented in this encounter Progress Notes Sundeep Ba PA - 04/14/2015 10:21 AM PST Subjective: Patient ID: Luz Maria Carmona is a 59 y.o. female. HPI last office visit was: 02/11/2015 date of split-night polysomnography: 12/03/2014 AHI: 62.1 RDI: 69.2 O2%: 74% with 27.0 minutes below 88% Machine type: ResMed AirSense 10 with nasal mask obtained from: [employer] in [place] pressure: 9-20 cm (lowered to 4-8 cm for comfort) Median: 7.3 cm 95%: 7.9cm maximum: 7.9 cm Nights using CPAP: 05/25 53/62 % of nights >4 hours: 0% 48% average usage (all nights): 0:12 3:27 average usage (nights used): 1:00 4:03 AHI: 59.5 12.4 "Alma Rosa" comes in for CPAP compliance. She struggled with tolerating the pressure for the first 2 weeks. Lowering her pressure range to 4-8 cm has helped with this considerably. Juana campos still has nights that she panics because of her mask and the pressure, but this is not hap pening nearly as often. She also had a few weeks that she struggled with using her CPAP bec ause she broke her right foot. During the last month she has improved her compliance consid erably. She is wearing it for the duration of her sleep on nearly all nights. She forgets to put it on at the beginning of the night on rare occasions. She is happy with her sleep a nd feels more rested with more energy on most days. She plans to continue with her CPAP 100 % of the time she is asleep. I have discussed the download in detail. This shows that her sleep apnea is much improved, with an AHI of 12.4 (6.9 during the last 30 days). It also shows that her leaks are pretty well controlled. It shows that she is wearing her CPAP >4 hours for 70% of the nights duri ng 30 consecutive nights. Review of Systems Objective: Physical Exam Assessment: Problem #1: OBSTRUCTIVE SLEEP APNEA ([id number]) This is controlled with CPAP. She has improved her compliance significantly and is sleepin g better. She has used her CPAP >4 hours for 70% of the nights for 30 consecutive nights. Plan: 1. She is to continue with CPAP indefinitely. 2. She is to work toward wearing her CPAP 100% of the time she is asleep. I will follow up again in 3 months, sooner prn. Twenty-five minutes were spent face-to-fac e, with the majority of time spent in counseling. Sundeep Ba PA-C cc: VIJAY Lott-DARRYN documented in this enco unter Plan of Treatment Not on filedocumented as of this encounter Visit Diagnoses + + | Diagnosis | + + | CONSUELO on CPAP - Primary Obstructive sleep apnea (adult) (pediatric) | + + documented in this encounter
--- OUTSIDE RECORDS SUMMARY | ~2019-01-30 | XMS | Encounter Summary ---
Demographics + + + | Address | [address] | | | [place] [address] | + + + | Home Phone | | + + + | Preferred Language | Unknown | + + + | Marital Status | | + + + | Jainism Affiliation | 1013 | + + + | Race | Unknown | + + + | Ethnic Group | Unknown | + + + Author + + + | Author | [facility] | | | and [place] | + + + | Organization | [facility] | | | and [place] | [...] Team Providers + +------+ + | Care Lockstitcher Name | Role | Phone | + [...] Description | +--------+---------+ + + + | 07/13/ | Office | [facility] | Sundeep Ba PA | CONSUELO on CPAP (Primary | | 2016 | Visit | SLEEP DISORDER [address] | [address] | Dx) | | | | [address] [place] | [place] | | | | | [place] [address] | [address] | | | | | [phone] | | | +--------+---------+ + + + [...] + + + | Blood Pressure | 124/62 | 07/14/2015 1:10 PM | | | | | PDT | | + + + + + | Pulse | 73 | 07/14/2015 1:10 PM | | | | | PDT | | + + + + + | Temperature | - | - | | + + + + + | Respiratory Rate | 16 | 07/14/2015 1:10 PM | | | | | PDT | | + + + + + | Oxygen Saturation | 96% | 07/14/2015 1:10 PM | | | | | PDT | | + + + + + | Inhaled Oxygen | - | - | | | Concentration | | | | + + + + + | Weight | 99 kg (218 lb 3.2 | 07/14/2015 1:10 PM | | | | oz) | PDT | | + + + + + | Height | - | - | | + + + + + | Body Mass Index | 33.18 | 02/20/2015 3:38 PM | | | | | PST | | + + + + + documented in this encounter Progress Notes Sundeep Ba PA - 07/14/2015 1:06 PM PDT Subjective: Patient ID: Luz Maria Carmona is a 60 y.o. female. HPI last office visit was: 04/14/2015 date of split-night polysomnography: 12/03/2014 AHI: 62.1 RDI: 69.2 O2%: 74% with 27.0 minutes below 88% Machine type: ResMed AirSense 10 with nasal mask obtained from: [employer] in [place] pressure: 9-20 cm (lowered to 4-8 cm for comfort) Median: 7.6 cm 95%: 7.9cm maximum: 7.9 cm Nights using CPAP: 05/25 53/62 56/91 % of nights >4 hours: 0% 48% 40% average usage (all nights): 0:12 3:27 2:38 average usage (nights used): 1:00 4:03 4:17 AHI: 59.5 12.4 2.4 "Alma Rosa" comes in for CPAP compliance. [...] bec ause she broke her right foot. Her foot is improving. She was doing pretty well with her C PAP, but she continues to have problems with her consistency. She has a variety of reasons/ excuses for not using her CPAP. Her primary challenge seems to be from dryness in her nares . She has tried to increase her humidity, but this has not helped. She is dry enough that she is getting nosebleeds. She has not used her CPAP during the last 2 weeks, but continues to have the problems with her nose. She stopped using her CPAP because she ran out of dist illed water and kept forgetting to get it. I told her she could use tap, filtered or drinki ng water for short periods if she needed to. I would prefer that she did this than not usin g her CPAP at all. She seems to understands this and plans to start wearing her CPAP regula rly again. I have discussed the download in detail. This shows that her sleep apnea is much improved, with an AHI of 2.4. It also shows that her leaks are pretty well controlled. BP 124/62 mmHg | Pulse 73 | Resp 16 | Wt 98.975 kg (218 lb 3.2 oz) | SpO2 96% Review of Systems Objective: Physical Exam Assessment: Problem #1: OBSTRUCTIVE SLEEP APNEA ([id number]-F14.33) This is controlled with CPAP. She had improved her compliance at her last visit, but has a gain struggled with her consistency. She has had some problems with her nose getting very d ry in spite of increasing her humidity. Plan: 1. She is to continue with CPAP indefinitely. 2. She is to work toward wearing her CPAP 100% of the time she is asleep. 3. She is to apply a topical agent to her nares to help with dryness. I will follow up again in 3 months, sooner prn. Fifteen minutes were spent [id number], w ith the majority of time spent in counseling. Sundeep Ba PA-C cc: Teena Busch, [facility]- documented in this enco unter Plan of Treatment Not on filedocumented as of this encounter Visit Diagnoses + + | Diagnosis | + + | CONSUELO on CPAP - Primary Obstructive sleep apnea (adult) (pediatric) | + + documented in this encounter
--- OUTSIDE RECORDS SUMMARY | ~2019-01-30 | XMS | Encounter Summary ---
Demographics + + + | Address | [address] [facility] [address] | | | [place] [address] | + + + | Home Phone | | + + + | Preferred Language | Unknown | + + + | Marital Status | | + + + | Mormonism Affiliation | 1013 | + + + | Race | Unknown | + + + | Ethnic Group | Unknown | + + + Author + + + | Author | [facility] | | | and [place] | + + + | Organization | [facility] | | | and [place] [...] Team Providers + +------+ + | Care Sheet Metal Journeyman Name | Role | Phone | + +------+ + | Abimael Devlin MD | PCP | | + +------+ + Reason for Visit +--------+ + | Reason | Comments | +--------+ + | Other | | +--------+ + Encounter Details +--------+ + + + + | Date | Type | Department | Care Team | Description | +--------+ + + + + | 03/09/ | [facility] | [facility] Andre Cab[facility] | Other | | 2017 | | ORTHOPEDIC SURGERY | MD [address] [facility] | | | | | [address] | [place] | | | | | [place] | [address] | | | | | [address] | | | | | | [phone] | | | +--------+ + + + [...] Visit Diagnoses Not on filedocumented in this encounter"
--- OUTSIDE RECORDS SUMMARY | ~2019-01-30 | XMS | Encounter Summary ---
Demographics + + + | Address | [address] [facility] [address] | | | [place] [address] | + + + | Home Phone | | + + + | Preferred Language | Unknown | + + + | Marital Status | | + + + | Christianity Affiliation | 1013 | + + + | Race | Unknown | + + + | Ethnic Group | Unknown | + + + Author + + + | Author | [facility] | | | and [place] | + + + | Organization | [facility] | | | and [...] Team Providers + +------+ + | Care Shared Services Representative Name | Role | Phone | + +------+ + PCP | Unavailable | + +------+ + Encounter Details +--------+ + + + + | Date | Type | Department | Care Team | Description | +--------+ + + + + | 06/15/ | Hospital | [facility] | Trevor Cárdenas MD | | | 2010 | Encounter | MED CTR XRAY [address] | | | | | [place] | [place] | | | | | [place] [address] | [address] | | | | | [phone] | | | +--------+ + + + + Social History + +-------+ +--------+------+ | Tobacco Use | Types | Packs/Day | Years | Date | | | | | Used | | + +-------+ +--------+------+ | Never Assessed | | | | | + +-------+ +--------+------+ + + + | Sex Assigned at [...] | + +--------+ + + + | ECHO COMPLETE | | 06/15/2010 | | Results for this | | | | 10:28 AM | | procedure are in the | | | | PDT | | results section. | + +--------+ + + + documented in this encounter Results ECHO Complete (06/15/2010 10:28 AM PDT) + + | Specimen | + + | | + + + + + | Narrative | Performed At | + + + | [facility] | [facility] | | [address] | [facility] | | E C H O C | DIAG IMG | | A R D I O G R A P H Y R E P O R T HEIGHT: 5'9" | | | WEIGHT: 240# HOT MILL WORKER: TD REFERRING PHYSICIAN: Dr. Murray | | | Avi READING DR:RABIA DIAGNOSIS: DYSPNEA | | | | | | M E A S U R E M E N T S | | | Aortic Root: 23 mm LV Diameter-diastole: 46 mm Aortic Cusp | | | Sep:18 mm LV Diameter--systole: 34 mm LA: 33 mm | | | Fractional Shortenin% IVS--diastole: 9 mm PFV Aortic | | | Valve: 34 IVS--systole: 11 mm MPG Mitral Valve: | | | mmHg LVPW--diastole: 9 mm PFV TR Jet: | | | 2.22 m/s LVPW--systole: 12 mm RA/RV PPG 19.7 | | | mmHg | | | | | | ECHOCARDIOGRAM: 06/15/2010 INDICATION: Dyspnea, lower extremity | | | edema. TECHNICAL: The quality of the study is adequate. This is a | | | 2-D echo / M-mode / Doppler / color Doppler study transthroacic | | | echocardiogram. HEMODYNAMICS: Patient appears to be in underlying | | | sinus rhythm/borderline sinus bradycardia with a heart rate in the | | | upper 50s to 60s. PATIENT CHARACTERISTICS: Height 5' 9". Weight is | | | 240 pounds. RESULTS: CHAMBERS: Bilateral atria are normal | | | dimension. The left ventricular size is of normal size and systolic | | | function with normal regional wall motion. Ejection fraction is | | | calculated at 64% using a biplane method. Right ventricle is of | | | normal size and systolic function with normal wall thickness and | | | contractility. VALVES: The aortic valve is a normal trileaflet | | | valve with adequate opening and minimal trileaflet sclerosis. There | | | is no evidence of significant stenosis or insufficiency noted. | | | Aortic root is of normal dimensions. Mitral valve is normal with | | | trace amount of regurgitation noted and no evidence of any stenosis. | | | Tricuspid valve is normal with trace amount of regurgitation with a | | | peak velocity of 2.2 m/s consistent with RV systolic pressures at the | | | upper limit of normal. Pulmonic valve is not well-seen. Pulmonary | | | artery appears to be within normal limits in dimension. | | | MISCELLANEOUS: Pericardium is normal without any pericardial effusion. | | | DIASTOLIC FUNCTION: There is evidence of normal left ventricular | | | diastolic dysfunction by mitral valve inflow interrogation as well | | | as tissue Doppler analysis. IMPRESSION: 1. A NORMAL LEFT | | | VENTRICULAR SIZE AND SYSTOLIC FUNCTION WITH LVEF OF 64%. 2. | | | NORMAL LEFT VENTRICULAR DIASTOLIC FUNCTION. 3. NO SIGNIFICANT | | | VALVULAR DISEASE NOTED. 4. CONSIDER FURTHER CARDIOLOGY | | | CONSULTATION IF THERE IS CONCERN REGARDING A CARDIAC ETIOLOGY OF THE | | | PATIENT'S SYMPTOMS. <Electronically Signed by Brendan Swan, | | | MD> 06/19/10 [id number] | | + + + + + | Procedure Note | + + | Ever Almazan - 04/20/2013 2:[address] [facility] | | Diagnostic Imaging Department | | [address] [facility] | | | | | | | | | | | | E C H O C A R D I O G R A P H Y R E P O R T | | | | | | HEIGHT: 5'9" WEIGHT: 240# HOT MILL WORKER: TD | | REFERRING PHYSICIAN: Dr. Trevor CAR DR:RABIA | | | | DIAGNOSIS: DYSPNEA | | | | | | M E A S U R E M E N T S | | | | Aortic Root: 23 mm LV Diameter-diastole: 46 mm | | Aortic Cusp Sep:18 mm LV Diameter--systole: 34 mm | | LA: 33 mm Fractional Shortenin% | | IVS--diastole: 9 mm PFV Aortic Valve: 34 | | IVS--systole: 11 mm MPG Mitral Valve: mmHg | | LVPW--diastole: 9 mm PFV TR Jet: 2.22 m/s | | LVPW--systole: 12 mm RA/RV PPG 19.7 mmHg | | | | | | ECHOCARDIOGRAM: 06/15/2010 | | | | INDICATION: Dyspnea, lower extremity edema. | | | | TECHNICAL: The quality of the study is adequate. This is a 2-D echo / M-mode / | | Doppler / color Doppler study transthroacic echocardiogram. | | | | HEMODYNAMICS: Patient appears to be in underlying sinus rhythm/borderline sinus | | bradycardia with a heart rate in the upper 50s to 60s. | | | | PATIENT CHARACTERISTICS: Height 5' 9". Weight is 240 pounds. | | | | RESULTS: | | CHAMBERS: Bilateral atria are normal dimension. The left ventricular size is of | | normal size and systolic function with normal regional wall motion. Ejection | | fraction is calculated at 64% using a biplane method. Right ventricle is of | | normal size and systolic function with normal wall thickness and contractility. | | | | VALVES: The aortic valve is a normal trileaflet valve with adequate opening and | | minimal trileaflet sclerosis. There is no evidence of significant stenosis or | | insufficiency noted. Aortic root is of normal dimensions. Mitral valve is | | normal with trace amount of regurgitation noted and no evidence of any | | stenosis. Tricuspid valve is normal with trace amount of regurgitation with a | | peak velocity of 2.2 m/s consistent with RV systolic pressures at the upper | | limit of normal. Pulmonic valve is not well-seen. Pulmonary artery appears to | | be within normal limits in dimension. | | | | MISCELLANEOUS: Pericardium is normal without any pericardial effusion. | | | | DIASTOLIC FUNCTION: There is evidence of normal left ventricular diastolic | | dysfunction by mitral valve inflow interrogation as well as tissue Doppler | | analysis. | | | | IMPRESSION: | | 1. A NORMAL LEFT VENTRICULAR SIZE AND SYSTOLIC FUNCTION WITH LVEF OF 64%. | | | | 2. NORMAL LEFT VENTRICULAR DIASTOLIC FUNCTION. | | | | 3. NO SIGNIFICANT VALVULAR DISEASE NOTED. | | | | 4. CONSIDER FURTHER CARDIOLOGY CONSULTATION IF THERE IS CONCERN REGARDING A | | CARDIAC ETIOLOGY OF THE PATIENT'S SYMPTOMS. | | | | <Electronically Signed by Brendan Swan MD> 06/19/10 0930 | + + + +---------+ + + | Performing | Address | City/State/Zipcode | Phone Number | | Organization | | | | + +---------+ + + | [place] | | | | | [place] | | | | + +---------+ + + documented in this encounter Visit Diagnoses Not on filedocumented in this encounter
--- OUTSIDE RECORDS SUMMARY | ~2019-01-30 | XMS | Encounter Summary ---
Demographics + + + | Address | [address] [facility] [address] | | | [place] [address] | + + + | Home Phone | | + + + | Preferred Language | Unknown | + + + | Marital Status | | + + + | Restorationist Affiliation | 1013 | + + + | Race | Unknown | + + + | Ethnic Group | Unknown | + + + Author + + + | Author | [facility] | | | and [place] | + + + | Organization | [facility] | | | and [place] | [...] Team Providers + +------+ + | Care Furniture Inspector Name | Role | Phone | + +------+ + | Abimael Devlin MD | PCP | | + +------+ + Reason for Visit +--------+ + | Reason | Comments | +--------+ + | Other | | +--------+ + Encounter Details +--------+ + + + + | Date | Type | Department | Care Team | Description | +--------+ + + + + | 10/05/ | Telephone | [facility] | Katy Huddlestonterrance [place], | Other | | 2014 | | PHYSIATRY [address] | MD [address] | | | | | [place], | [place], [place] | | | | | [place] [address] | [address] | | | | | [phone] | | | +--------+ + + + [...]
--- OUTSIDE RECORDS SUMMARY | ~2019-01-30 | XMS | Encounter Summary ---
Demographics + + + | Address | [address] [address] | | | [place] [address] | + + + | Home Phone | | + + + | Preferred Language | Unknown | + + + | Marital Status | | + + + | Mosque Affiliation | 1013 | + + + | Race | Unknown | + + + | Ethnic Group | Unknown | + + + Author + + + | Author | [facility] | | | and [place] | + + + | Organization | [facility] | | | and [...] Team Providers + +------+ + | Care Circular Knitter Helper Name | Role | Phone | + [...] + + | 07/13/ | Office | [facility] | Sundeep Ba PA | CONSUELO on CPAP (Primary | | 2016 | Visit | SLEEP DISORDER [address] | [address] | Dx) | | | | [address] [place] | [place] | | | | | [place] [address] | [address] | | | | | [phone] | | | +--------+---------+ + + + [...] AirSense 10 with nasal mask obtained from: [employer] in [place] pressure: 9-20 cm (lowered to 4-8 cm [...] Exam Assessment: Problem #1: OBSTRUCTIVE SLEEP APNEA ([id number]-K91.33) This is controlled with CPAP. She had [...] months, sooner prn. Fifteen minutes were spent [id number], w ith the majority of time spent in counseling. Sundeep Ba PA-C cc: Teena Busch, [facility]- documented in this enco unter Plan of Treatment Not on filedocumented as of this encounter Visit Diagnoses + + | Diagnosis | + + | CONSUELO on CPAP - Primary Obstructive sleep apnea (adult) (pediatric) | + + documented in this encounter
--- OUTSIDE RECORDS SUMMARY | ~2019-01-30 | XMS | Encounter Summary ---
Demographics + + + | Address | [address] | | | [place] [address] | + + + | Home Phone | | + + + | Preferred Language | Unknown | + + + | Marital Status | | + + + | Jehovah'S Witness Affiliation | 1013 | + + + | Race | Unknown | + + + | Ethnic Group | Unknown | + + + Author + + + | Author | [facility] | | | and [place] | + + + | Organization | [facility] | | | and [place] [...] Team Providers + +------+ + | Care Higher Education Administrator Name | Role | Phone | + +------+ + | Wicho Starkey MD | PCP | | + +------+ + Reason for Referral Diagnostic/Screening (Routine) +--------+--------+ + + + + | Status | Reason | Specialty | Diagnoses / | Referred By | Referred To | | | | | Procedures | Contact | Contact | +--------+--------+ + + + + | Closed | | Radiology | Diagnoses | [place], | [facility] | | | | | Right knee | Leonidas Irving MD | [address] | | | | | pain | [address] | [place], | | | | | Swelling of | [address] | [place] | | | | | right knee | [place], | [address] | | | | | joint | [place] [address] | Phone: | | | | | Procedures | Phone: | [phone] | | | | | MRI Knee | [phone] | Fax: | | | | | Right wo | Fax: | [phone] | | | | | Contrast | [phone] | | +--------+--------+ + + + + Reason for Visit Diagnostic/Screening (Routine) +--------+--------+ + + + + | Status | Reason | Specialty | Diagnoses / | Referred By | Referred To | | | | | Procedures | Contact | Contact | +--------+--------+ + + + + | Closed | | Radiology | Diagnoses | [place], | [facility] | | | | | Right knee | Leonidas Irving MD | [address] | | | | | pain | [address] | [place], | | | | | Swelling of | [address] | [place] | | | | | right knee | [place], | [address] | | | | | joint | [place] [address] | Phone: | | | | | Procedures | Phone: | [phone] | | | | | MRI Knee | [phone] | Fax: | | | | | Right wo | Fax: | [phone] | | | | | Contrast | [phone] | | +--------+--------+ + + + + Encounter Details +--------+ + + + + | Date | Type | Department | Care Team | Description | +--------+ + + + + | 12/10/ | Hospital | [facility] | Leonidas [place], | Right knee pain; | | 2014 | Encounter | [facility] [address] | MD [address] | Swelling of right | | | | [place], | [place], [place] | knee joint | | | | [place] [address] | [address] | | | | | [phone] | | | +--------+ + + + [...] + + documented as of this encounter Medications at Time of Discharge + + + +---------+ + + | Medication | Sig | Dispensed | Refills | Start | End Date | | | | | | Date | | + + + +---------+ + + | DULoxetine | One capsule by mouth | | 0 | 20 | | | (CYMBALTA) 60 MG | once daily | | | 12 | | | capsule | | | | | | + + + +---------+ + + | lamotrigine | One tablet by mouth | | 0 | 20 | | | (LAMICTAL) 200 MG | [...] | + +--------+ + + + | MRI KNEE RIGHT WO | Routin | 12/10/2014 | Right knee pain | Results for this | | CONTRAST | e | 11:30 AM | Swelling of right | procedure are in the | | | | PDT | knee joint | results section. | + +--------+ + + + documented in this encounter Results MRI Knee Right wo Contrast (12/10/2014 11:30 AM PDT) + + | Specimen | + + | | + + + + + | Narrative | Performed At | + + + | MRI KNEE RIGHT WO CONTRAST 12/10/2014 10:57 AM HISTORY: Acute | [facility] | | right knee pain with right knee swelling. COMPARISON: Right knee | [facility] | | x-ray 12/04/2014. PROTOCOL: Axial proton density fat sat, sagittal [facility] | | proton density, coronal proton density fat sat, coronal T1, sagittal | - IMAGING | | T2 fat sat, sagittal STIR. FINDINGS: The ACL, PCL, quadriceps | | | tendon, and patellar tendon are intact. A transverse tear is | | | visualized of the posterior horn of the medial meniscus extending to | | | the posterior surface that measures 1.0 cm. There is intrasubstance | | | degeneration in the posterior horn of the lateral meniscus. There | | | is a small amount of edema medial to the MCL that is most consistent | | | with grade 1 injury. Mild high signal is observed in the upper | | | portions of the fibular collateral ligament that would be consistent | | | with sprain. The medial retinaculum, and lateral retinaculum are | | | intact. The pes anserinus is normal. Mild high signal is noted of the | | | upper popliteal tendon that is consistent with sprain. The anterior | | | and posterior compartment musculature are unremarkable. A small | | | osteochondral injury measuring 0.6 cm with chondral defect of 0.2 cm | | | is observed of the upper mid patella. Articular cartilages of the | | | medial and lateral compartments are normal. There is a small | | | amount of marrow edema in the tibial plateau, medial more than | | | lateral. A small knee joint effusion is present. There is a small | | | Rao's cyst. Soft tissue structures are unremarkable. | | | IMPRESSION - Transverse tear in posterior horn of medial meniscus. | | | Grade 1 injury to MCL with no disruption of fibers. Sprain | | | involving upper portions of the fibular collateral ligament. Mild | | | sprain in superior popliteal tendon. Small osteochondral injury | | | with small chondral defect in upper mid patella. Small amount of | | | marrow edema in the tibial plateau, medial more the lateral, most | | | consistent with osseous contusion. Small joint effusion, small | | | Rao's cyst. Dictated and Signed by: Jamari Davis MD | | | Electronically signed: 12/10/2014 1:06 PM | | + + + + + | Procedure Note | + + | Tha, Rad Results In - 12/10/2014 1:09 PM PDT MRI KNEE RIGHT WO CONTRAST 12/10/2014 | | 10:57 AM HISTORY: Acute right knee pain with right knee swelling.COMPARISON: Right knee | | x-ray 12/04/2014.PROTOCOL: Axial proton density fat sat, sagittal proton density, coronal | | protondensity fat sat, coronal T1, sagittal T2 fat sat, sagittal STIR.FINDINGS:The ACL, | | PCL, quadriceps tendon, and patellar tendon are intact.A transverse tear is visualized | | of the posterior horn of the medial meniscusextending to the posterior surface that | | measures 1.0 cm. There is intrasubstancedegeneration in the posterior horn of the | | lateral meniscus.There is a small amount of edema medial to the MCL that is most | | consistent withgrade 1 injury. Mild high signal is observed in the upper portions of | | thefibular collateral ligament that would be consistent with sprain. The | | medialretinaculum, and lateral retinaculum are intact. The pes anserinus is normal.Mild | | high signal is noted of the upper popliteal tendon that is consistent withsprain. The | | anterior and posterior compartment musculature are unremarkable.A small osteochondral | | injury measuring 0.6 cm with chondral defect of 0.2 cm isobserved of the upper mid | | patella. Articular cartilages of the medial andlateral compartments are normal.There is | | a small amount of marrow edema in the tibial plateau, medial more thanlateral.A small | | knee joint effusion is present. There is a small Rao's cyst.Soft tissue structures are | | unremarkable.IMPRESSION -Transverse tear in posterior horn of medial meniscus.Grade 1 | | injury to MCL with no disruption of fibers.Sprain involving upper portions of the | | fibular collateral ligament.Mild sprain in superior popliteal tendon.Small osteochondral | | injury with small chondral defect in upper mid patella.Small amount of marrow edema in | | the tibial plateau, medial more the lateral,most consistent with osseous contusion.Small | | joint effusion, small Rao's cyst.Dictated and Signed by: Jamari Davis MD | | Electronically signed: 12/10/2014 1:06 PM | |observed of the upper mid patella. Articular cartilages of the medial and | |lateral compartments are normal. | | | |There is a small amount of marrow edema in the tibial plateau, medial more than | |lateral. | | | |A small knee joint effusion is present. There is a small Rao's cyst. | | | |Soft tissue structures are unremarkable. | | | |IMPRESSION - | |Transverse tear in posterior horn of medial meniscus. | | | |Grade 1 injury to MCL with no disruption of fibers. | | | |Sprain involving upper portions of the fibular collateral ligament. | | | |Mild sprain in superior popliteal tendon. | | | |Small osteochondral injury with small chondral defect in upper mid patella. | | | |Small amount of marrow edema in the tibial plateau, medial more the lateral, | |most consistent with osseous contusion. | | | |Small joint effusion, small Rao's cyst. | | | |Dictated and Signed by: Jamari Davis MD | | Electronically signed: 12/10/2014 1:06 PM | + + + + + + + | Performing | Address | City[facility] | Phone Number | | Organization | | | | + + + + + | [facility] | [address] | [place] | [phone] | | [facility] | | [id number] | | | - IMAGING | | | | + + + + + documented in this encounter Visit Diagnoses + + | Diagnosis | + + | Right knee pain Pain in joint, lower leg | + + | Swelling of right knee joint Effusion of lower leg joint | + + documented in this encounter"
--- OUTSIDE RECORDS SUMMARY | ~2019-01-30 | XMS | Encounter Summary ---
Demographics + + + | Address | [address] [facility] [address] | | | [place] [address] | + + + | Home Phone | | + + + | Preferred Language | Unknown | + + + | Marital Status | | + + + | Sabianist Affiliation | 1013 | + + + | Race | Unknown | + + + | Ethnic Group | Unknown | + + + Author + + + | Author | [facility] | | | and [place] | + + + | Organization | [facility] | | | and [...] Team Providers + +------+ + | Care Counselor Dormitory Name | Role | Phone | + +------+ + | Wicho Starkey MD | PCP | | + +------+ + Encounter Details +--------+ + + + + | Date | Type | Department | Care Team | Description | +--------+ + + + + | 08/09/ | Abstract | [facility] | Paco Gonzalez | | | 2014 | | PHYSIATRY [address] MD [address] | | | | | [place], | [place] | | | | | [place] [address] | [address] | | | | | [phone] | | | +--------+ + + + + Social History + + + +--------+------+ | Tobacco Use | Types | Packs/Day | Years | Date | | | | | Used | | + + + +--------+------+ | Current Every Day | Cigarettes | 0.5 | 10 | | | Smoker | | | | | + + + +--------+------+ + + +---------+ + | Alcohol Use | Drinks/Week | oz/Week | Comments | + + +---------+ + | Not Asked | 0 Standard drinks | 0.0 | [...]
--- OUTSIDE RECORDS SUMMARY | ~2019-01-30 | XMS | Encounter Summary ---
Demographics + + + | Address | [address] [place] [address] | | | [place] [address] | + + + | Home Phone | | + + + | Preferred Language | Unknown | + + + | Marital Status | | + + + | Latter-Day Affiliation | 1013 | + + + | Race | Unknown | + + + | Ethnic Group | Unknown | + + + Author + + + | Author | [facility] | | | and [place] | + + + | Organization | [facility] | | | and [place] [...] Team Providers + +------+ + | Care Making Machine Catcher Name | Role | Phone | + [...] + + | Closed | Specialty | Sleep | Diagnoses | [place], | [place] | | | Services | Medicine | | Leonidas Irving MD | [facility] | | | Required | | Fibromyalgia | [address] | | | | | Snoring | [address] | [address] | | | | | Apnea | [place], | [place], | | | | | | [place] [address] | [place] [address] | | | | | | Phone: | Phone: | | | | | | [phone] | [phone] | | | | | | Fax: | Fax: | | | | | | [phone] | [phone] | +--------+ + + + + + Evaluate & Treat (Routine) +--------+ + + + + + | Status | Reason | Specialty | Diagnoses / | Referred By | Referred To | | | | | Procedures | Contact | Contact | +--------+ + + + + + | Closed | Specialty | Physical | Diagnoses | [place], | | | | Services | Therapy | Spinal | Leonidas Irving MD | | | | Required | | stenosis in | [address] | | | | | | cervical | [address] | | | | | | region | [place], | | | | | | Cervical | [place] [address] | | | | | | spondylosis | Phone: | | | | | | Cervicalgia | [phone] | | | | | | Status | Fax: | | | | | | post | [phone] | | | | | | cervical | | | | | | | spinal | | | | | | | fusion | | | | | | | Bilateral | | | | | | | low back | | | | | | | pain without | | | | | | | sciatica | | | +--------+ + + + + + Reason for Visit + + + | Reason | Comments | + + + | Neck Pain | | + + + Evaluate & Treat (Routine) +--------+--------+ + + + + | Status | Reason | Specialty | Diagnoses / | Referred By | Referred To | | | | | Procedures | Contact | Contact | +--------+--------+ + + + + | Closed | | Physical | Diagnoses | [place], | Leonidas Mohr | | | | Medicine and | Neck pain | [place] | Alicia Irving MD [address] | | | | Rehabilitatio | | MD Erasmo | [address] | | | | n | | [address] | [place], | | | | | | [place] | [place] [address] | | | | | | [place], [place] | Phone: | | | | | | [address] | [phone] | | | | | | Phone: | Fax: | | | | | | [phone] | [phone] | | | | | | Fax: | | | | | | | [phone] | | +--------+--------+ + + + + Encounter Details +--------+---------+ + + + | Date | Type | Department | Care Team | Description | +--------+---------+ + + + | 08/21/ | Office | [facility] | eLonidas Mohr, | Cervicalgia (Primary | | 2014 | Visit | PHYSIATRY [address] | [address] | Dx); Cervical | | | | [address] [place], | [place] | spondylosis; | | | | [place] [address] | [address] | Cervical spinal | | | | [phone] | | stenosis; Status | | | | | | post cervical spinal | | | | | | fusion; Bilateral | | | | | | low back pain | | | | | | without sciatica; | | | | | | Fibromyalgia; | | | | | | Chronic daily | | | | | | headache; Snoring; | | | | | | Apnea | +--------+---------+ + + + Social History + + + +--------+------+ | Tobacco Use | Types | Packs/Day | Years | Date | | | | | Used | | + + + +--------+------+ | Former Smoker | Cigarettes | 0.5 | 10 | | + + + +--------+------+ + +---+---+ + | Smokeless Tobacco: | | | Quit: | | Former User | | | 06/22/19 | | | | | 15 | + +---+---+ + + + +---------+ + | Alcohol Use [...] + + + | Blood Pressure | 134/70 | 08/21/2014 1:02 PM | | | | | PDT | | + + + + + | Pulse | 88 | 08/21/2014 1:02 PM | | | | | PDT | | + + + + + | Temperature | - | - | | + + + + + | Respiratory Rate | 18 | 08/21/2014 1:02 PM | | | | | PDT | | + + + + + | Oxygen Saturation | - | - | | + + + + + | Inhaled Oxygen | - | - | | | Concentration | | | | + + + + + | Weight | 98.9 kg (218 lb) | 08/21/2014 1:02 PM | | | | | PDT | | + + + + + | Height | 175.3 cm (5' 9") | 08/21/2014 1:02 PM | | | | | PDT | | + + + + + | Body Mass Index | 32.19 | 08/21/2014 1:02 PM | | | | | PDT | | + + + + + documented in this encounter Patient Instructions Patient Instructions Leonidas Mohr MD - 08/21/2014 1:44 PM PDTTry going fragrance free to see if your daily headaches improve. Daily use of tylenol, caffeine, hydrocodone, tobacc o, among other can also cause daily headaches. Physical therapy has been prescribed. Please participate in physical therapy. If you have not be contacted for an appointment with physical therapy within one week, please contact [facility]. Once you have completed physical therapy please continue the home exercise progr am as outline by physical therapy, indefinitely. Continue cymbalta. Increase gabapentin to 300 mg two capsules three times daily. Please attend sleep study consult to be evaluate and treated for sleep apnea. Return to the clinic in 8 weeks. In the future we may consider increasing cymbalta. We may consider steroid injections. If all conservative measures fail we may consider surgery consult. documented in this encounter Progress Notes Leonidas Mohr MD - 08/21/2014 5:[address] [facility] PHYSIATRY [address] [address] OFFICE NOTE LEONIDAS MOHR JR, MD Patient: LUZ MARIA LOCKWOOD Admitting: MR #: [id number] LOC: PT TYPE: Adm Date: 08/21/2014 : 1955 PHYSICAL MEDICINE REHABILITATION CONSULT DATE OF : 1955 CONSULT REQUESTED BY: Wicho Starkey MD DATE OF SERVICE: 08/21/2014 PATIENT IDENTIFICATION: A 59-year-old female with total body pain, fibromyalgia. CHIEF COMPLAINT: Neck pain and weakness. HISTORY OF PRESENT ILLNESS: The patient indicates that she has fibromyalgia. She reports that she has had neck pain and back pain for as long as she can remember. Her chief compl aint is neck pain. She was referred to the clinic, specifically for neck pain. She indica araceli that her neck pain is a 7/10 on a numerical pain scale. Pain is constant in timing. Pain is sharp, shooting, pulsing, aching and throbbing in quality. Pain is daily and braulio nuous. Pain is increased by kneeling, bending, twisting and all activities. She indicates that she has had prior neck surgery. Her neck pain never went away after prior surgery. She indicates that her pain was reduced after the surgery, but never resolved. She reports that neck pain has been progressively worse again over the years. She denies it being acu tely and recently worse. She indicates that she has never had physical therapy for her nec k or her back. She denies any neck pain traveling into the upper extremities. She denies any numbness or tingling in either upper extremity. She reports a feeling of fatigue and w eakness throughout her entire body. She reports a feeling of sensitivity and pain throughou t all parts of her body. She has been on hydrocodone for years. She indicates that the m edication was recently tapered and discontinued. She is a bit upset about this. She is wo ndering if I will take over prescribing her opiate medications. We discussed that is not g enerally a part or purview of the treatment that I provide. We discussed that in the clin ic we usually look for ways to correct and improve underlying pathology and improve functio n. We discussed also that in individuals with fibromyalgia we tend to try to avoid opiate medications as they may result in tolerance and increased pain over time. She reports that she snores. She reports that her family members have told her that she s tops breathing in the night. She has observed sleep apnea. She has not been treated for s leep apnea. She does not have a CPAP machine. She reports fatigue. She reports that she sleeps poorly at night. She reports insomnia. She reports that she hurts everywhere. She indicates that any type of activity makes her pain worse. She indicates that she has a ca regiver. She indicates that she cannot do her own activities for herself, such as doing th e dishes, doing laundry or preparing meals. She indicates that her pain is too severe. e indicates that she has been in this type of pain for years, hence the reason she is on d isability and has a caregiver. Once again, she denies any numbness, tingling in the upper extremities. She denies pain traveling from the neck into the upper extremities. She does report pain from the neck into the shoulders. She reports the distribution of the rotato r cuff muscles. Her shoulder pain is increased by activation of the rotator cuff muscles, such as shoulder forward flexion and abduction. She reports back pain. Back pain is not as bad as neck pain. She reports that back pain is localized to the central low back. She denies any pain traveling from the back into the legs. She denies numbness, tingling in the legs. She once again reports fatigue and feel ings of diffuse weakness in the legs. She denies incontinence of bowel or bladder. She d enies saddle anesthesia. She reports history of vitamin D deficiency. She reports that e supplements with vitamin D. She denies history of thyroid disease. She reports having migraine headaches. She reports that she has headaches all day every d ay. She used to smoke but quit 2-1/2 months ago. She indicates that she has used methamph etamine and marijuana in the past but is not currently using. She reports that she has a 1 2th grade education and GED. She is disabled. She has a caregiver. She has 3 children. She reports rare consumption of alcohol. ALLERGIES: ALPRAZOLAM, PRAZOSIN, QUETIAPINE. CURRENT MEDICATIONS: Abilify. Valium. Cymbalta 60 mg daily. Gabapentin 400 mg 3 times per day. Lamictal. Metformin. Naproxen 375 mg twice daily. Omeprazole 40 mg daily. Verapamil 180 mg daily. Geodon 80 mg 1 in the morning, 2 in the evening. Calcium carbonate daily. PAST MEDICAL HISTORY: Includes fibromyalgia, depression, anxiety, asthma, arrhythmia, hea rt disease, high blood pressure, chronic migraine headaches, diabetes. She reports that mercy campos has headaches all day every day. She reports that she has severe headaches 4 or more felicia rs when severe 15 or more days per month. PAST SURGICAL HISTORY: She reports that she had back surgery as well as neck surgery. Mercy campos had a tubal ligation, cholecystectomy, appendectomy. FAMILY MEDICAL HISTORY: She reports that father at age 60 from heart attack. Mother at age 73 from cancer. She has a brother with back problems. She repo rts that in her children there is history of seizures, strokes, mental illness and rheumato id arthritis. She reports that cancer, arthritis, diabetes, heart disease, and mental illn ess runs in the family. SOCIAL MEDICAL HISTORY: As noted above, she is disabled, has a GED, has 3 children. Quit smoking 2-1/2 months ago after smoking a pack and a half per day for years. Most recently , she was only smoking half a pack per day before she quit. She has history of methampheta mine and marijuana use in the past but not recently. REVIEW OF SYSTEMS: She reports that she has had both weight gain and weight loss in the r ecent past. She indicates that she wears corrective glasses. She has had ringing in the e ars, dizziness. She snores. She has sinus problems. She has had dental work. She report s that she stops breathing during her sleep. She has pain in her arms and legs. Sometimes pain wakes her up. She feels weak everywhere. She reports neck pain and back pain. She denies history of stroke. She reports history of headaches and migraines, history of anxie ty, bipolar disorder, depression, and sleeping problems. She reports history of heart mur mur and heart attack. She reports that she has ankle swelling and asthma at times. She re ports history of diabetes, joint pain and rheumatoid arthritis. PHYSICAL EXAMINATION: VITAL SIGNS: Heart rate 88, respiratory rate 18, blood pressure 134/70, weight 218 pounds , height 5 feet 9 inches. GENERAL: No acute distress, alert and oriented to person, place, time and situation. HEENT: Extraocular muscles intact. Sclerae are clear. NECK: Diffuse tenderness to palpation. Allodynia. Limited range of motion. Spurling's test negative. HEART: Systolic murmur. No gallops. Regular rate. LUNGS: Clear. No wheezing, no crackles. ABDOMEN: Obese, nontender. Positive for bowel sounds. BACK: Diffuse allodynia to light touch. Seated straight leg raise negative. Mahesh's t est negative. EXTREMITIES: Reveals no clubbing or cyanosis. Trace edema in lower extremities. Fibromy algia tender point examination demonstrates 18 positive fibromyalgia tender points. NEUROLOGIC: Demonstrates 18 positive fibromyalgia tender points. Neurological exam demonstrates intact memory, speech. Coordination intact. Strength is i ntact, 4+/5 with biceps, triceps, wrist dorsiflexion, finger abduction and hand [employer]; 4+/5 hip flexion, knee flexion, knee extension, ankle dorsiflexion, ankle plantarflexion. These findings are bilateral. She has some very mild diffuse weakness. She exhibits some givewa y weakness, some potential inhibition secondary to pain. Sensory is intact to light touch and pinprick in both upper and both lower extremities. Reflexes are normal over biceps and triceps of upper extremities and over patellar and Achilles of lower extremities. Neck MRI demonstrates cervical fusion. There is adjacent segment disease above the level of fusion. There is some mild to moderate cervical spinal stenosis at this level. Her cer vical fusion is at C5 through C7. There is disc bulge and stenosis at C4-5. There is some moderate bilateral neural foraminal narrowing at this level. Other levels are relatively unremarkable, a few levels of very minimal mild neural foraminal narrowing of unlikely sig nificance. Lumbar MRI imaging personally reviewed by me 12/31/2012 demonstrates L4-5 hardware. Mild disc disease at L2-3 without any significant neural foraminal narrowing or central canal st enosis. No areas of major concern on my review of the imaging. The radiologist reports mi ld neural foraminal narrowing at left L4-5. ASSESSMENT: 1. Cervicalgia, ICD-9 723.1. 2. Cervical spondylosis, ICD-9 721.0. 3. Mild to moderate cervical spinal stenosis at C4-5, ICD-9 V45.4. 4. History of cervica l fusion from C5 through C7, ICD-9 V45.4. 5. Bilateral back pain, without sciatica, ICD-9 724.2. 6. Fibromyalgia, ICD-9 729.1. 7. Chronic daily headaches, ICD-9 784.0. 8. History of snoring, ICD-9 786.09. 9. Probable apnea, ICD-9 786.03. 10. Uncomplicated opiate dependence, ICD-9 304.00. PLAN: The patient has been on opiate medications for years. We discussed that opiate med ications can result in increased pain receptors and ultimately worsening pain over time, es pecially in those individuals with fibromyalgia. We discussed the pathophysiology of fibro myalgia and how it results in increased levels of pain. We discussed that we will taper u p gabapentin at this time in hopes of offering her further reduction in neuropathic pain. We cautioned that it could cause more swelling in the legs. If it does, we will have to re duce the dose back down. May consider tapering up Cymbalta in the future. She wears stro ng perfume; we discussed that strong perfume could be contributing to headaches. We discus sed that routine use of short-acting opiate medications could also cause headaches. We dis cussed that it is probably best to be off of short-acting opiates; preferentially she woul d be off of all Tylenol, opiates, caffeine, tobacco, etc. anything they could cause rebound headaches and chronic daily headaches. She is encouraged to try going fragrance free. Mercy campos has apnea. She has had visual observed episodes of stopping breathing seen by her family . She snores. I am requesting sleep clinic consultation and evaluation for sleep apnea. Sleep apnea can cause fatigue and can be a disease associated with a diagnosis of fibromya lgia. She has not had any physical therapy for neck and back. I have asked that she parti cipate in physical therapy at this time. In summary, she will try to treat her headaches by reducing rebound substances and fragran ce. She will have physical therapy for neck and back. She will continue Cymbalta and incr ease gabapentin, may taper up Cymbalta in the future. She will have a sleep study consult. She will return to clinic in 8 weeks. If she has persisting symptoms, we will likely co nsider cervical epidural steroid injection for cervical spinal stenosis. I am unlikely to consider lumbar injection as there is very little lumbar imaging that would warrant an inje ction at time. If she has radicular symptoms, may consider repeat lumbar imaging in the f uture. Opiate induced hyperalgesia remains within her differential diagnosis, as she did h ave allodynia to light touch over all aspects of her body today. Thank you for allowing me to be involved in the care of your patient. If you have any ques tions regarding the care of Ms. Lockwood, please do not hesitate to call. LEONIDAS MOHR JR, MD Dictated by LEONIDAS MOHR JR, MD 08/21/2014 17:21:09 Transcribed on 08/22/2014 01:15:33 by job# [id number] Confirmation #: [id number] cc: WICHO STARKEY MD Leonidas Mohr MD - 08/21/2014 1:53 PM PDTThis office note has been dictated. Job ID# [id number] signed by Leonidas Mohr MD at 08/21/2014 5:21 PM PDTdocumented in this encounter Plan of Treatment + + +--------+ + + | Name | Type | Priori | Associated Diagnoses | Order Schedule | | | | ty | | | + + +--------+ + + | External Ambulatory | Outpatient | Routin | Cervicalgia | Ordered: 08/21/2014 | | referral to Physical | Referral | e | Cervical spondylosis | | | Therapy | | | Cervical spinal | | | | | | stenosis Status | | | | | | post cervical spinal | | | | | | fusion Bilateral | | | | | | low back pain | | | | | | without sciatica | | + + +--------+ + + | * [facility] | Outpatient | Routin | Fibromyalgia | Ordered: 08/21/2014 | | Sleep Disorder - AMB | Referral | e | Snoring Apnea | | | Referral | | | | | + + +--------+ + + documented as of this encounter Visit Diagnoses + + | Diagnosis | + + | Cervicalgia - Primary | + + | Cervical spondylosis Cervical spondylosis without myelopathy | + + | Cervical spinal stenosis Spinal stenosis in cervical region | + + | Status post cervical spinal fusion Arthrodesis status | + + | Bilateral low back pain without sciatica | + + | Fibromyalgia Mylagia and myositis, unspecified | + + | Chronic daily headache Headache | + + | Snoring Other dyspnea and respiratory abnormality | + + | Apnea | + + documented in this encounter
--- OUTSIDE RECORDS SUMMARY | ~2019-01-30 | XMS | Encounter Summary ---
Demographics + + + | Address | [address] | | | [place] [address] | + + + | Home Phone | | + + + | Preferred Language | Unknown | + + + | Marital Status | | + + + | Buddhist Affiliation | 1013 | + + + | Race | Unknown | + + + | Ethnic Group | Unknown | + + + Author + + + | Author | [facility] | | | and [place] | + + + | Organization | [facility] | | [...] Team Providers + +------+ + | Care Supervisor Pyrotechnic Loading Name | Role | Phone | + +------+ + | Abimael Devlin MD | PCP | | + +------+ + Reason for Visit + + + | Reason | Comments | + + + | Follow-up | medication review | + + + Encounter Details +--------+---------+ + + + | Date | Type | Department | Care Team | Description | +--------+---------+ + + + | 01/08/ | Office | [facility] [place] | Leonidas Mohr, | Fibromyalgia | | 2015 | Visit | PHYSIATRY [address] | MD [address] | (Primary Dx); | | | | [address] [place], | [place], [place] | Chronic daily | | | | [place] [address] | [address] | headache; Migraine | | | | [phone] | | without aura and | | | | | | without status | | | | | | migrainosus, not | | | | | | intractable | +--------+---------+ + + + Social History [...] + + + | Blood Pressure | 115/66 | 01/09/2016 11:56 AM | | | | | PDT | | + + + + + | Pulse | 78 | 01/09/2016 11:56 AM | | | | | PDT | | + + + + + | Temperature | - | - | | + + + + + | Respiratory Rate | 14 | 01/09/2016 11:56 AM | | | | | PDT | | + + + + + | Oxygen Saturation | - | - | | + + + + + | Inhaled Oxygen | - | - | | | Concentration | | | | + + + + + | Weight | 111.2 kg (245 lb 1.6 | 01/09/2016 11:56 AM | | | | oz) | PDT | | + + + + + | Height | 172.7 cm (5' 8") | 01/09/2016 11:56 AM | | | | | PDT | | + + + + + | Body Mass Index | 37.27 | 01/09/2016 11:56 AM | | | | | PDT | | + + + + + documented in this encounter Patient Instructions Patient Instructions Leonidas Mohr MD - 01/09/2016 12:38 PM PDTIf Lyrica is approved, st art taking Lyrica. If Lyrica is denied by your insurance start Topamax. Return to the clinic in 2 months to review response to medication. documented in this encounter Progress Notes Leonidas Mohr MD - 01/09/2016 12:52 PM PDT [facility] [place] PH[facility]SIATRY [address] [facility] [address] OFFICE NOTE LEONIDAS MOHR JR, MD Patient: LUZ MARIA LOCKWOOD Admitting: MR #: [id number] LOC: PT TYPE: Adm Date: 01/09/2016 : 1955 PHYSICAL MEDICINE & REHABILITATION. DATE OF : 1955 PRIMARY CARE PROVIDER: Abimael Devlin MD DATE OF SERVICE: 01/09/2016 PATIENT IDENTIFICATION: A 60-year-old female with chronic daily headaches, fibromyalgia, history of cervical spinal stenosis, status post fusion. Also, with cervical dystonia. HISTORY OF PRESENT ILLNESS: The patient was last seen by me 11/14/2015. At that time, it was felt that she had fibromyalgia and chronic daily headaches. She was prescribed medicat ion, Lyrica, which would likely be helpful for her fibromyalgia. It was considered that it may potentially also help with her headaches. She returns to clinic today to review silas ramirez of symptoms. She is still working on having Lyrica approved by her insurance. She has still not received additional Lyrica. We still do not know how she would respond to th e medication at this time. Previously, she was taking Lyrica prescribed by another provider . She reports that when she was taking it, she felt dramatically better. She indicates t hat her headache symptoms are improved, her fibromyalgia symptoms were improved. She has p reviously had a trial of medication with significant success. She would like to be back on Lyrica, if possible. She continues to have headaches. Headaches have improved since she has cut back on use of abortive medications. She is still unfortunately having headaches several days per week. She estimates that she is having 15 headache days per month. She indicates that her heada ches usually last around 4 hours. She indicates that headaches are moderate to severe whe n they occur. She reports headache pain today is a 5/10 on a numerical pain scale. She re ports that she does not really count this was a headache. She admits that there is really some pain in her head all day every day. She indicates that she only considers a headache when it becomes more intense. Headache pain is located over the bilateral temples, it is worse on the right than on the left. She indicates that she has only had nausea 1 time in the last 2 months because of headache, which was last week. She does have light and sound sensitivity associated with her headaches. She also has a throbbing sensation in the head when she has a headache. She also sometimes feels tight neck muscles, a shooting pain in the back to skull that shoots up over the top of the head. She describes occipital distrib ution to pain. She has tried numerous medications for management of headaches in the past. Previously, she was on Lyrica, which was helping her fibromyalgia as well as her headache s. She is currently on verapamil. She has used Imitrex as needed. She limits her use of this. She has limited her use of abortive medications. She has also been on Lamictal. Juana campos is currently taking 200 mg 2 times daily. She is on Cymbalta once daily. She believes t hat this is helping her fibromyalgia symptoms primarily. MEDICATIONS: That she has tried in the past include: Tylenol. Coreg. Valium. Cymbalta. Gabapentin. Hydrocodone. Advil. Lamictal. Naproxen. Verapamil. Geodon. She has fibromyalgia. She reports that she has some total body pain. Pain is strongest in the neck and shoulders. Pain is a 5/10 on a numerical pain scale. She reports some fatig ue. She reports increased pain with activity and movement. She reports reduced pain with current medication. She reports that fibromyalgia pain was reduced when on Lyrica previou sly. She denies any severe pain at this time. Fibromyalgia pain also varies from day to da y, also in association with wet weather. She has previously had physical therapy, tried a nti-inflammatories. She is currently doing an exercise program. ALLERGIES: ALPRAZOLAM, CODEINE, PRAZOSIN, QUETIAPINE FUMARATE. CURRENT MEDICATIONS: Abilify 20 mg daily. Calcium carbonate with vitamin D daily. Cymbalta 60 mg daily. Vitamin D2 50,000 units once weekly. Advil 400 mg as needed. She indicates that she is not currently taking this. Lamictal 200 mg 2 times daily. Lisinopril 10 mg daily. Ativan 0.5 mg as needed. Glucophage daily. Zofran 4 mg 1 tablet every 8 hours as needed. Lyrica has been prescribed, but she has not yet been able to fill the prescription. Imitrex 100 mg as needed. She reports that she may use this 1 time per week. Verapamil 180 mg extended release daily. REVIEW OF SYSTEMS: The patient denies nausea, vomiting, diarrhea, constipation, fever, ch ills, shortness of breath, or chest pain, denies skin breakdown or rash. All other review of systems negative. PHYSICAL EXAMINATION: VITAL SIGNS: Heart rate 78, respiratory rate 14, blood pressure 115/66, weight 245 pounds , height 5 feet 8 inches. GENERAL: No acute distress. Alert to person, place, time and situation. HEENT: Extraocular muscles intact. Sclerae are clear. NECK: Limited range of motion. Increased tone over cervical paraspinal muscles. Moderat e tenderness to palpation over occipital nerves. Spurling's test negative. Axial loading t est negative. HEART: Regular rate and rhythm, no murmurs, no gallops. LUNGS: Clear to auscultation, no wheezing, no crackles. ABDOMEN: Obese, distended, positive for bowel sounds, symmetric. BACK: Diffuse tenderness to palpation. Seated straight leg raise negative. Mahesh's araceli t negative. EXTREMITIES: Reveals no clubbing, cyanosis or edema all 4 extremities. NEUROLOGIC: Exam demonstrates intact cranial nerves. Memory intact. Speech normal. Sensation, strength, co ordination, reflexes grossly intact in upper and lower extremities. Fibromyalgia tender po int examination demonstrates 14 positive fibromyalgia tender points out of 18. DATABASE: Metabolic profile has been requested 09/2015. She has not yet completed the la b work. CBC was also requested at the same time. ASSESSMENT: 1. Fibromyalgia, ICD-10 M79.7. 2. Chronic daily headaches, ICD-10 R51. 3. Migraine headaches without aura, without status migrainous, not intractable, ICD-10 G4 3.009. PLAN: The patient has fibromyalgia. I believe that Lyrica could be helpful for fibromyal karl. There is some potential that it may also help with her headaches. I would prefer to use a minimal number of medications as possible. For this reason, I would choose Lyrica fo r her at this time as it may help out with fibromyalgia as well as her headaches. She has tried numerous other medications as noted above. She has had numerous other conservative t reatments. Topamax may be helpful for chronic daily headaches. Unlikely to be helpful for fibromyalg ia. If she is not approved for Lyrica may consider using Topamax for headaches only, but o nce again would not help with more than one of her conditions. Currently, her Lyrica is going through an approval process with her insurance. She report s that she has an approval hearing for Lyrica in approximately a week and a half. If Lyrica is approved, she has been instructed to go ahead and start taking Lyrica as prev iously prescribed. We discussed that if Lyrica is denied I would like her to fill prescrip tion for Topamax and start medication instead so at least we would be treating one of her conditions which is chronic daily headache. She will return to clinic in 2 months' time to review response to medication. At that time, we will be reviewing her response to either taking Lyrica or Topamax. She is advised not to take both. Thank you for allowing me to be involved in the care of your patient. If you have any ques tions regarding the care of Ms. Lockwood, please do not hesitate to call. LEONIDAS MOHR JR, MD Dictated by LEONIDAS MOHR JR, MD 01/09/2016 12:52:20 Transcribed on 01/10/2016 09:17:55 by [facility] job# [id number] Confirmation #: [id number] cc: ABIMAEL DEVLIN MD Leonidas Mijares MD - 01/09/2016 12:40 PM PDTThis office note has been dictated. Report Confirmation# [id number] signed by Leonidas Mohr MD at 01/09/2016 12:52 PM PDTdocumented in this encounter Plan of Treatment Not on filedocumented as of this encounter Visit Diagnoses + + | Diagnosis | + + | Fibromyalgia - Primary Mylagia and myositis, unspecified | + + | Chronic daily headache Headache | + + | Migraine without aura and without status migrainosus, not intractable Migraine | | without aura, without mention of intractable migraine without mention of status | | migrainosus | + + documented in this encounter
--- OUTSIDE RECORDS SUMMARY | ~2019-01-30 | XMS | Encounter Summary ---
Demographics + + + | Address | [address] | | | [place] [address] | + + + | Home Phone | | + + + | Preferred Language | Unknown | + + + | Marital Status | | + + + | Mu-Ism Affiliation | 1013 | + + + | Race | Unknown | + + + | Ethnic Group | Unknown | + + + Author + + + | Author | [facility] | | | and [place] | + + + | Organization | [facility] | | | and [place] | [...] Team Providers + +------+ + | Care Lime Hide Inspector Name | Role | Phone | + +------+ + | Abimael Devlin MD | PCP | | + +------+ + Reason for Visit + + + | Reason | Comments | + + + | Medication Prior | | | Authorization | | + + + Encounter Details +--------+ + + + + | Date | Type | Department | Care Team | Description | +--------+ + + + + | 12/03/ | Telephone | [facility] [place] | Leondias Huddleston, | Medication Prior | | 2016 | | PHYSIATRY [address] | MD [address] | Authorization | | | | [place], | [place], [place] | | | | | [place] [address] | [address] | | | | | [phone] | | | +--------+ + + + [...]
--- OUTSIDE RECORDS SUMMARY | ~2019-01-30 | XMS | Encounter Summary ---
Demographics + + + | Address | [address] [facility] [address] | | | [place] [address] | + + + | Home Phone | | + + + | Preferred Language | Unknown | + + + | Marital Status | | + + + | Evangelical Affiliation | 1013 | + + + | Race | Unknown | + + + | Ethnic Group | Unknown | + + + Author + + + | Author | [facility] | | | and [place] | + + + | Organization | [facility] | | | and [place] [...] Team Providers + +------+ + | Care Director Of Advertising Sales Name | Role | Phone | + +------+ + | Abimael Devlin MD | PCP | | + +------+ + Reason for Visit +--------+ + | Reason | Comments | +--------+ + | Other | | +--------+ + Encounter Details +--------+ + + + + | Date | Type | Department | Care Team | Description | +--------+ + + + + | 10/ | Telephone | [facility] | Katy Huddlestonterrance [place], | Other | | 2015 | | PHYSIATRY [address] | MD [address] | | | | | [place], | [place], [place] | | | | | [place] [address] | [address] | | | | | [phone] | | | +--------+ + + + [...]
--- OUTSIDE RECORDS SUMMARY | ~2019-01-30 | XMS | Encounter Summary ---
Demographics + + + | Address | [address] [facility] [address] [facility] [address] | | | [place] [address] | + + + | Home Phone | | + + + | Preferred Language | Unknown | + + + | Marital Status | | + + + | Jainism Affiliation | 1013 | + + + | Race | Unknown | + + + | Ethnic Group | Unknown | + + + Author + + + | Author | [facility] | | | and [place] | + + + | Organization | [facility] | | | and [place] [...] Team Providers + +------+ + | Care Precision Dyer Name | Role | Phone | + +------+ + | Abimael Devlin MD | PCP | | + +------+ + Encounter Details +--------+ + + + + | Date | Type | Department | Care Team | Description | +--------+ + + + + | 09/29/ | Episode | [facility] [place] | Beti Arzate | | | 2017 | Changes | GASTROENTEROLOGY | L, RN | | | | | [address] [facility] | | | | | | [address] [place] | | | | | | [address] | | | | | | [phone] | | | +--------+ + + + [...]
--- OUTSIDE RECORDS SUMMARY | ~2019-01-30 | XMS | Encounter Summary ---
Demographics + + + | Address | [address] [facility] [address] [facility] [address] | | | [place] [address] | + + + | Home Phone | | + + + | Preferred Language | Unknown | + + + | Marital Status | | + + + | Yazidi Affiliation | 1013 | + + + | Race | Unknown | + + + | Ethnic Group | Unknown | + + + Author + + + | Author | [facility] | | | and [place] | + + + | Organization | [facility] | | | and [...] Team Providers + +------+ + | Care Ct Mri Technologist Name | Role | Phone | + +------+ + | Abimael Devlin MD | PCP | | + +------+ + Encounter Details +--------+ + + + + | Date | Type | Department | Care Team | Description | +--------+ + + + + | 10/12/ | Abstract | [facility] [place] | Patrick England MD | | | 2016 | | GASTROENTEROLOGY | [address], [place] | | | | | [address] [place] | [address] [place] | | | | | [address] [place], [place] | [address] | | | | | [address] | | | | | | [phone] | | | +--------+ + + + [...] + + + + | Weight | 120.6 kg (265 lb | 10/12/2016 2:53 PM | | | | 12.8 oz) | PDT | | + + + + + | Height | 174 cm (5' 8.5") | 10/12/2016 2:53 PM | | | | | PDT | | + + + + + | Body Mass Index | 39.83 | 10/12/2016 2:53 PM | | | | | PDT | | + + + + + documented in this encounter Plan of Treatment Not on filedocumented as of this encounter Visit Diagnoses Not on filedocumented in this encounter
--- OUTSIDE RECORDS SUMMARY | ~2019-01-30 | XMS | Encounter Summary ---
Demographics + + + | Address | [address] [facility] [address] | | | [place] [address] | + + + | Home Phone [...] | Author | [facility] | | | and [place] | + + + | Organization | [facility] | | | and [place] [...] Team Providers + +------+ + | Care Coating Machine Feeder Name | Role | Phone | + [...] | SLEEP DISORDER [address] | [address] | | | | | [address] [place] | [place] | | | | | [place] [address] | [id number] | | | | | [phone] | | | +--------+ + + + [...] as of this encounter Progress Notes Sundeep Ba PA - 11/26/2015 2:07 PM PDT"Alma Rosa" [...]
--- OUTSIDE RECORDS SUMMARY | ~2019-01-30 | XMS | Encounter Summary ---
Demographics + + + | Address | [address] [facility] [address] | | | [place] [address] | + + + | Home Phone | | + + + | Preferred Language | Unknown | + + + | Marital Status | | + + + | Amish Affiliation | 1013 | + + + | Race | Unknown | + + + | Ethnic Group | Unknown | + + + Author + + + | Author | [facility] | | | and [place] | + + + | Organization | [facility] | | | and [...] Team Providers + +------+ + | Care Vp Strategic Planning Name | Role | Phone | + [...] 2016 | | GASTROENTEROLOGY | [address], [place] | | | | | [address] [place] | [address] | | | | | [address] [place], [place] | [address] | | | | | [address] | | | | | | [phone] | | | +--------+ + + + [...]
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
--- OUTSIDE RECORDS SUMMARY | ~2019-01-30 | XMS | Encounter Summary ---
Demographics + + + | Address | [address] [facility] [address] | | | [place] [address] | + + + | Home Phone [...] | [facility]ly [facility] | | | and [place] | + + + | Organization | [facility] | | | and [...] Team Providers + +------+ + | Care Business Intelligence Etl Developer Name | Role | Phone | + +------+ + | Janelle Busch NP | PCP | | + [...] | Physical | Diagnoses | [place], | [facility] | | | Services | Therapy / | | Leonidas Irving MD | Pt Op [address] | | | Required | Rehabilitatio | Fibromyalgia | [address] | | | n | | [address] | [place], | | | | | Cervicalgia | [place], | [place] [address] | | | | | Cervical | [place] [address] | Phone: | | | | | dystonia | Phone: | [phone] | | | | | History of | [phone] | Fax: | | | | | cervical | Fax: | [phone] | | | | | spinal | [phone] | | | | | | surgery | | | | | | | M79.7 | | | | | | | (ICD-10-CM) | | | | | | | - 729.1 | | | | | | | (ICD-9-CM) - | | | | | | | | | | | | | | Fibromyalgia | | | | | | | Procedures | | | | | | | pt eval | | | | | | | (pool) | | | +--------+ + + + + + Reason for Visit + + + | Reason | Comments | + + + | Headache | | + + + | Neck Pain | | + + + Evaluate & Treat (Routine) +--------+--------+ + + + + | Status | Reason | Specialty | Diagnoses / | Referred By | Referred To | | | | | Procedures | Contact | Contact | +--------+--------+ + + + + | Closed | | Physical | Diagnoses | Jo-Ann, | Leonidas Mohr | | | | Medicine and | Occipital | Janelle Ann, | Alicia Irving MD [address] | | | | Rehabilitatio | neuralgia | BEHAVIORAL PSYCHOLOGIST [address] | | | | n | neck pain | [address] | [place], | | | | | follow up | [address] | [place] [address] | | | | | | [place], | Phone: | | | | | | [place] [address] | [phone] | | | | | | Phone: | Fax: | | | | | | [phone] | [phone] | | | | | | Fax: | | | | | | | [phone] | | +--------+--------+ + + + + Encounter Details +--------+---------+ + + + | Date | Type | Department | Care Team | Description | +--------+---------+ + + + | 07/31/ | Office | [facility] [place] | Leonidsa Mohr, | Chronic daily | | 2015 | Visit | PHYSIATRY [address] | MD [address] | headache (Primary | | | | [address] [place], | [place], [place] | Dx); Migraine | | | | [place] [address] | [address] | without aura and | | | | [phone] | | without status | | | | | | migrainosus, not | | | | | | intractable; | | | | | | Fibromyalgia; | | | | | | Cervicalgia; | | | | | | Cervical dystonia; | | | | | | History of cervical | | | | | | spinal surgery | +--------+---------+ + + + Social History [...] + + + | Blood Pressure | 160/50 | 08/01/2015 10:15 AM | | | | | PDT | | + + + + + | Pulse | 89 | 08/01/2015 10:15 AM | | | | | PDT | | + + + + + | Temperature | - | - | | + + + + + | Respiratory Rate | 18 | 08/01/2015 10:15 AM | | | | | PDT | | + + + + + | Oxygen Saturation | - | - | | + + + + + | Inhaled Oxygen | - | - | | | Concentration | | | | + + + + + | Weight | 98.9 kg (218 lb) | 08/01/2015 10:15 AM | | | | | PDT | | + + + + + | Height | 172.7 cm (5' 8") | 08/01/2015 10:15 AM | | | | | PDT | | + + + + + | Body Mass Index | 33.15 | 08/01/2015 10:15 AM | | | | | PDT | | + + + + + documented in this encounter Patient Instructions Patient Instructions Leonidas Mohr MD - 08/01/2015 10:23 AM PDTTake Zofran 4 mg by mouth only as needed for nausea with migraines. Try to use sparingly. Not for routine use. Limit the use of abortive pain medication (e.g. Naproxen, ibuprofen, oxycodone, sumatriptan , hydrocodone) to no more than 3 doses combined total per week, and no more than 9 doses com bined total per month. You should never take both Naproxen and ibuprofen at the same time. They are two medicatio ns for the same family. Continue working with Janelle Busch NP to manage your blood pressure. Laboratory tests have been requested. Please go to the lab to complete your laboratory araceli ting. The results of your laboratory testing will be reviewed at your next appointment. If your labratory results demonstrate any emergent results the clinic will contact you. Restart medication Lyrica at increased dose of 100 mg three times daily. Physical therapy has been prescribed. Please participate in physical therapy. If you have not be contacted for an appointment with physical therapy within one week, please contact [facility]. Once you have completed physical therapy please continue the home exercise progr am as outline by physical therapy, indefinitely. Return to the clinic in 3 months. documented in this encounter Progress Notes Leonidas Mohr MD - 08/01/2015 10:48 AM PDT [facility] PHYSIATRY [address] [facility] [address] OFFICE NOTE LEONIDAS MOHR JR, MD Patient: LUZ MARIA LOCKWOOD Admitting: MR #: [id number] LOC: PT TYPE: Adm Date: 08/01/2015 : 1955 PHYSICAL MEDICINE REHABILITATION PROGRESS NOTE DATE OF : 1955. PRIMARY CARE PROVIDER: Janelle Busch NP. DATE OF SERVICE: 08/01/2015. PATIENT IDENTIFICATION: A 60-year-old female with chronic daily headaches, fibromyalgia, cervicalgia. History of cervical spinal stenosis. History of cervical fusion. HISTORY OF PRESENT ILLNESS: The patient was last seen by me nearly 6 months ago. At that time, she had bilateral greater occipital nerve blocks for greater occipital neuralgia. S he reports that, unfortunately, it did not seem to help with her headaches. She initially actually felt worse after the injections. She indicates that she has continued to have he adache and neck pain symptoms. She recently has had knee surgery and foot surgery. She molina s been on the medications hydrocodone and oxycodone. She indicates that she was also pres cribed naproxen. She has been taking this in addition to her over the counter use of ibup rofen. She recently has been found to have elevated blood pressure. Her doctor increased her blood pressure medication. We discussed that the combination use of ibuprofen and napr oxen could be elevating her blood pressure. Today we discussed that she should never be t aking both medications in combination. She does not believe that she has had any recent la bs. She does not think that she has had any evaluation of kidney function. She is advised to discontinue naproxen and ibuprofen immediately. Laboratory testing of renal function and CBC have been requested. She indicates that she also ran out of her Lyrica a month ago. Since running out of her L Doculogyica, her headaches have been worse. She has had a headache all day every day for more th an 2 weeks. Prior to being on both ibuprofen and naproxen at the same time, as well as landy or to her running out of Lyrica, she was having headaches on a weekly basis, usually 1 or 2 days long. She indicates that headaches had dropped down below 15 days per month. She d oes have a history of headaches 15 days per month, 4 or more hours per headache, for more t del cid 3 months. This had improved with medications such as Cymbalta and Lyrica. It seems l devon her headaches are trending back towards worse. She indicates that she has neck pain, left greater than right. Neck pain is a 6/10 on a n umerical pain scale. Pain is constant in timing. Pain is sharp in quality. She is unsure of any specific thing that increases her neck pain. Pain is reduced with physical therapy, rest, and bracing. She denies numbness, tingling or weakness in upper extremities. She reports headaches. Headaches are daily. Headaches are on the left side. Headaches a re constant. Headaches are sharp and pounding. Headaches are triggered by perfume, turning her head and neck rotation. She denies aura with headache. She denies nausea at this time , but she has had nausea and vomiting, usually once a week. ALLERGIES: ALPRAZOLAM, CODEINE, PRAZOSIN, QUETIAPINE. CURRENT MEDICATIONS: Abilify. Calcium with vitamin D. Cymbalta 60 mg once daily. Vitamin D2 50,000 units weekly. Ibuprofen 400 mg 3 times per day. Lamictal 200 mg 2 times daily. Lisinopril 10 mg daily. Ativan 0.5 mg as needed. Glucophage 1000 mg 2 times daily. Naproxen 375 mg twice daily. Lyrica 100 mg 3 times per day. Imitrex 100 mg as needed. CPAP machine at night. REVIEW OF SYSTEMS: The patient denies fever, chills, shortness of breath, or chest pain, denies skin breakdown or rash. All other review of systems negative. She does have nausea and vomiting with headaches. She does have light and sound sensitivity with headaches. Al l other review of systems negative. PHYSICAL EXAMINATION: VITAL SIGNS: Heart rate 89, respiratory rate 18, blood pressure 160/50, weight 218 pounds , height 5 feet 8 inches. GENERAL: No acute distress. Alert to person, place, time and situation. HEENT: Extraocular muscles intact. Sclerae are clear. NECK: Limited range of motion. Spurling's test negative. Increased tone over cervical p araspinal muscles, consistent with cervical dystonia. Tenderness to palpation over greater occipital nerves with reproduction of headache symptoms, especially on the left. Neck de monstrates anterior sagittal positioning. Increased tone of posterior neck muscles. Anter ior scar on neck. HEART: Regular rate and rhythm, no murmurs, no gallops. LUNGS: Clear to auscultation, no wheezing, no crackles. EXTREMITIES: Exam reveals no clubbing, cyanosis or edema. NEUROLO GICAL: Examination demonstrates intact cranial nerves. Memory intact. Speech normal. Se nsation, strength, coordination, reflexes intact in all 4 extremities. DATABASE: No new imaging or laboratory data available for review. ASSESSMENT: 1. Chronic daily headaches, previously improved, but worse now with routine use of ibupro fen and naproxen, also worse now with discontinuing Lyrica. ICD-10 R51. 2. Migraine headaches without aura, without status migrainous, not intractable, ICD-10 G4 3.009. 3. Fibromyalgia, ICD-10 M79.7. 4. Cervicalgia, ICD-10 M54.2. 5. Cervical dystonia, ICD-10 G24.3. 6. History of cervical spine surgery, ICD-10 Z98.89. PLAN: The patient will have physical therapy once again for her neck. She will have gentl e cervical traction. She will have posterior neck muscle strengthening, which may help rep osition neck, reduce headaches and reduce neck pain. I have also asked her to resume medic ation Lyrica. I suspect that this would be helpful for fibromyalgia and her headaches. P revious dosing may have been inadequate. I would recommend increasing Lyrica to 100 mg 3 t imes per day. Dosing for fibromyalgia is generally 400 mg total per day. She is not near that dosing with her previous dose of 75 mg 3 times per day. She is advised not to take naproxen and ibuprofen together. We discussed that this could elevate blood pressure, could cause kidney problems, could increase risk of heart attack, a s well as gastrointestinal bleeding. We discussed that there is no reason to be taking marissa th at the same time. She is advised to limit use of abortive pain medications. We reviewed that abortive medic ations include hydrocodone, oxycodone, ibuprofen, naproxen, Imitrex, etc. We discussed delfino t combination use medications can cause medication overuse headaches. She is advised to li susan her use of this type of medication to no more than 3 doses per week and no more than 9 doses per month. She has elevated blood pressure today. She is advised to continue follo wing up with her primary care doctor for management of her blood pressure. She indicates t hat she was recently started on lisinopril. We discussed that it can take some time for l isinopril to take effect. She occasionally has nausea and vomiting with her headaches. Ju[place] campos was prescribed Zofran 4 mg every 8 hours as needed, to be used on rare occasion for nause a with migraines. She is prescribed #28 tablets with no refills. She is once again encour aged to use this very sparingly. I do not have any recent labs for her. Given the multiple anti-seizure medications, anti- inflammatory medications, the increased blood pressure, I do believe that it would be recom mended for her to have a metabolic profile and CBC at this time. These have been requested . She will return to clinic in 3 months' time to review response to increased dose of Lyrica , participation in physical therapy, laboratory results, recheck blood pressure level, and review response to abstaining from routine use of abortive medications and review if Zofran is helpful in managing her nausea with headaches. Future treatment considerations includ e use of Topamax for management of chronic daily headaches versus Botox chemodenervation. Given that she had a poor response to previous injection procedure, would be very reticent to consider another injection procedure. We discussed that, unfortunately, individuals w ith fibromyalgia may be more prone to feeling increased pain following the procedure. Thank you for allowing me to be involved in the care of your patient. If you have any ques tions regarding the care of Ms. Lockwood, please do not hesitate to call. LEONIDAS MOHR JR, MD Dictated by LEONIDAS MOHR JR, MD 08/01/2015 10:48:23 Transcribed on 08/01/2015 11:20:21 by viktoria job# [id number] Confirmation #: [id number] cc: JANELLE BUSCH NP [facility], Leonidas Irving MD - 08/01/2015 10:40 AM PDTThis office note has been dictated. Job ID# [id number] signed by Leonidas Mohr MD at 08/01/2015 10:48 AM PDTdocumented in this encounter Plan of Treatment + +------+--------+ + + | Name | Type | Priori | Associated Diagnoses | Order Schedule | | | | ty | | | + +------+--------+ + + | Comprehensive | Lab | Routin | Chronic daily | Expected: | | Metabolic Panel | | e | headache | 08/01/2015, Expires: | | | | | Fibromyalgia | 07/31/2016 | + +------+--------+ + + | CBC with | Lab | Routin | Chronic daily | Expected: | | Differential | | e | headache | 08/01/2015, Expires: | | | | | Fibromyalgia | 07/31/2016 | + +------+--------+ + + + + +--------+ + + | Name | Type | Priori | Associated Diagnoses | Order Schedule | | | | ty | | | + + +--------+ + + | * [facility] | Outpatient | Routin | Fibromyalgia | Ordered: 08/01/2015 | | Therapy - AMB | Referral | e | Cervicalgia | | | Referral | | | Cervical dystonia | | | | | | History of cervical | | | | | | spinal surgery | | + + +--------+ + + documented as of this encounter Visit Diagnoses + + | Diagnosis | + + | Chronic daily headache - Primary Headache | + + | Migraine without aura and without status migrainosus, not intractable Migraine | | without aura, without mention of intractable migraine without mention of status | | migrainosus | + + | Fibromyalgia Mylagia and myositis, unspecified | + + | Cervicalgia | + + | Cervical dystonia Spasmodic torticollis | + + | History of cervical spinal surgery Personal history of surgery to other organs | + + documented in this encounter
--- OUTSIDE RECORDS SUMMARY | ~2019-01-30 | XMS | Encounter Summary ---
Demographics + + + | Address | [address] [address] | | | [place] [address] | + + + | Home Phone | | + + + | Preferred Language | Unknown | + + + | Marital Status | | + + + | Advent Affiliation | 1013 | + + + | Race | Unknown | + + + | Ethnic Group | Unknown | + + + Author + + + | Author | [facility] | | | and [place] | + + + | Organization | [facility] | | [...] Team Providers + +------+ + | Care Mat Roller Name | Role | Phone | + +------+ + | Teena Busch NP | PCP | | + +------+ + Encounter Details +--------+---------+ + + + | Date | Type | Department | Care Team | Description | +--------+---------+ + + + | 03/10/ | Office | [facility] | Sundeep Ba PA | CONSUELO on CPAP (Primary | | 2015 | Visit | SLEEP DISORDER [address] | [address] | Dx) | | | | [address] [place] | [place] | | | | | [place] [address] | [address] | | | | | [phone] | | | +--------+---------+ + + + [...] encounter Progress Notes Sundeep Ba PA - 03/10/2015 2:04 PM PST"Alma Rosa" has struggled with her compliance since her last visit. We lowered her pressure range from 9-20 cm to 4-8 cm to help her adjust to it more easily. This was somewhat helpful, but she is still having a difficult time. She also injured her foot, which required surgery. This prevented her from coming into our offi ce for today's visit. She says she wants to do well, but is having a difficult time. We ag courtn discussed the importance of working toward wearing her CPAP 100% of the time she is asle ep and desensitization to help her adjust to wearing it. I will follow up again in 1 month, sooner prn. Fifteen minutes were spent via phone call, with the majority of time spent in counseling. Sundeep Ba PA-C cc: Teena Busch [facility] P STdocumented in this encounter Plan of Treatment Not on filedocumented as of this encounter Visit Diagnoses + + | Diagnosis | + + | OCNSUELO on CPAP - Primary Obstructive sleep apnea (adult) (pediatric) | + + documented in this encounter
--- OUTSIDE RECORDS SUMMARY | ~2019-01-30 | XMS | Encounter Summary ---
Demographics + + + | Address | [address] [facility] [address] | | | [place] [address] | + + + | Home Phone | | + + + | Preferred Language | Unknown | + + + | Marital Status | | + + + | Jewish Affiliation | 1013 | + + + | Race | Unknown | + + + | Ethnic Group | Unknown | + + + Author + + + | Author | [facility] | | | and [place] | + + + | Organization | [facility] | | | and [place] [...] Team Providers + +------+ + | Care Milk Hauler Name | Role | Phone | + [...] PHYSIATRY [address] | MD [address] | neuralgia (Primary | | | | [address] [place], | [place], [place] | Dx) | | | | [place] [address] | [address] | | | | | [phone] | | | +--------+ + + + [...]
--- OUTSIDE RECORDS SUMMARY | ~2019-01-30 | XMS | Clinical Summary ---
Demographics + + + | Address | [address] [facility] [address] | | | [place] [address] | + + + | Home Phone | | + + + | Preferred Language | Unknown | + + + | Marital Status | | + + + | Sabianism Affiliation | 1013 | + + + | Race | Unknown | + + + | Ethnic Group | Unknown | + + + Author + + + | Author | [facility] | | | and [place] | + + + | Organization | [facility] | | | and [...] Team Providers + +------+ + | Care Solder Making Laborer Name | Role | Phone | + [...] of suicidal ideation. Goes to | | [employer]. Psychiatric meds prescribed by Dr PizanoDx Name | | changed by system update on 12/24/2016Overview: History of | | suicidal ideation. Goes to [employer]. Psychiatric meds prescribed | | by Dr PizanoDx Name changed by system update on 12/24/2016 | | | |Overview: | |History of suicidal ideation. Goes to [employer]. Psychiatric meds prescribed by | | Dr [...] | [employer] | [facility] | [id number] | 09/12/19 | [phone] | | Medica [...] Self | [birth year] | [address] | | | al/Fam | | 1956 | [phone] | [address] [place] | | | [place] | | | [address] (Home) | [address] | + +--------+ +--------+ + + Advance Directives + + + + + | Type | Date Recorded | Patient | Explanation | | | | Home Energy Consultant | | + + + + + | Power of | | | | | Mower Sharpener | | | | + + + + + | Advance | 10/14/2016 9:58 | | | | Directive | AM | | | + + + + +
--- OUTSIDE RECORDS SUMMARY | ~2019-01-30 | XMS | Encounter Summary ---
Demographics + + + | Address | [address] | | | [place] [address] | + + + | Home Phone | | + + + | Preferred Language | Unknown | + + + | Marital Status | | + + + | Moravian Affiliation | 1013 | + + + | Race | Unknown | + + + | Ethnic Group | Unknown | + + + Author + + + | Author | [facility] | | | and [place] | + + + | Organization | [facility] | | | and [...] Team Providers + +------+ + | Care Highway Maintainer Name | Role | Phone | + +------+ + | Teena Busch NP | PCP | | + +------+ + Reason for Visit +--------+ + | Reason | Comments | +--------+ + | Other | sleep results | +--------+ + Encounter Details +--------+---------+ + + + | Date | Type | Department | Care Team | Description | +--------+---------+ + + + | 01/28/ | Office | [facility] | Andre Ugarte | CONSUELO (obstructive | | 2015 | Visit | SLEEP DISORDER [address] | MD [address] | sleep apnea) | | | | [address] [place] | [address] [place] | (Primary Dx) | | | | [place] [address] | [place] [address] | | | | | [phone] | [phone] | | | | | | | [...] + + + | Blood Pressure | 120/76 | 01/28/2015 8:58 AM | | | | | PST | | + + + + + | Pulse | 71 | 01/28/2015 8:58 AM | | | | | PST | | + + + + + | Temperature | - | - | | + + + + + | Respiratory Rate | 16 | 01/28/2015 8:58 AM | | | | | PST | | + + + + + | Oxygen Saturation | 94% | 01/28/2015 8:58 AM | | | | | PST | | + + + + + | Inhaled Oxygen | - | - | | | Concentration | | | | + + + + + | Weight | 96.9 kg (213 lb 9.6 | 01/28/2015 8:58 AM | | | | oz) | PST | | + + + + + | Height | - | - | | + + + + + | Body Mass Index | 32.48 | 01/15/2015 12:05 PM | | | | | PST | | + + + + + documented in this encounter Patient Instructions Patient Instructions Andre Ugarte Jr., MD - 01/28/2015 9:27 AM PST Continuous Positive Airway Pressure (CPAP) Your health care provider has prescribed continuous positive airway pressure (CPAP) therapy for you. A CPAPdevice helps you breathe better at night. The device delivers air through your nose or mouth when you breathe in to keep your air passages open. CPAP is: Used most often to treat sleep apnea and some other problems (Sleep apnea is a chronic c ondition with periods of sleep in which you briefly stop breathing.) Safe and very effective, but it takes time to get used to the mask. Your health care provider, nurse, or medical supplier will give you tips for wearing and ca ring for your CPAP device. General guidelines It's very important not togive up! It takes time to get used to wearing the mask at ni ght. Practice using your CPAP device during the day, especially whenever you take a nap. Remember, there are several different types of masks. If you can t get used to your ma sk, ask your provider or medical supply company about trying another style. If you have nasal stuffiness or dryness when using your CPAP device, talk with your prov ider or medical supply company. There are ways to lessen these problems. For example, your p rovider may recommend moistening nasal spray or the medical supply company may recommend a d evice with a humidifier. The goal is to use yourCPAP all night, every night, during all naps, and even when you travel. Keep your mask clean. Wash it with soap and water. Be sure to rinse the mask and tubing well with water to remove any soap. Let them air-dry thoroughly before using. Make yourself comfortable when sleeping with CPAP. Try using extra pillows. Work with your medical supply company so that you know how to correctly use your CPAP. The r footwear sales representative will be able to help you: Use the CPAP correctly Troubleshoot any problems that come up Learn to clean and maintain the device Adjust to regular use of the CPAP [id number] [employer]. [address] [place] [address]. All righ ts reserved. This information is not intended as a substitute for professional medical care. Always follow your healthcare professional's instructions. documented in this encounter Progress Notes Andre Ugarte Jr., MD - 01/28/2015 9:03 AM PSTThe patient comes in for follow-up after undergoing diagnostic polysomnography utilizing a split-night technique. My interpretation o f the patient's sleep study, which I have reviewed with the patient, is as follows: Split-Night Polysomnogram/Positive Airway Pressure Titration Report on Luz Maria Carmona Performed on 12/03/2014. Clinical Information: Luz Maria Carmona is a 59 y.o. female who underwent nocturnal poly somnography using a "Split-Night" Protocol on 12/03/[address] José Antonio maravilla of possible Obstructive Sleep Apnea. Technical Information: Please see technical data stored as Polysomnography under "Media" se ction in the [facility] EMR. Definitions (The AASM Manual for the Scoring of Sleep and Associated Events, Version 2.0; 2 012): Apnea:There is a drop in the peak signal excursion by 90% or greater of pre-event baseline using an oronasal thermal sensor (diagnostic study), PAP device flow (titration study), or a n alternative apnea sensor (diagnostic study); the duration of the 90% or greater drop in se nsor signal is 10 seconds or longer. Obstructive Apnea: Event associated with continued or increased inspiratory effort througho ut the entire period of absent airflow. Central Apnea: Event associated with absent inspiratory effort throughout the entire period of absent airflow. Mixed Apnea: Event associated with absent inspiratory effort in the initial portion of the event followed by resumption of inspiratory effort during the second portion of the event. Hypopnea: Nasal pressure excursion drop by 30% or more from baseline, lasting at lease 10 s econds and 90% of the event's duration meets this amplitude criteria. This is associated wit h a 4% or greater desaturation from pre-baseline. Respiratory Event Related Arousal: A sequence of breaths lasting 10 seconds or longer leeroy cterized by increasing respiratory effort or by flattening of the inspiratory portion of the nasal pressure (diagnostic study) or PAP device flow (titration study) waveform leading to arousal from sleep when the sequence of breaths does not meet criteria for an apnea or hypop gracia. The study was conducted in two parts. The first 165 minutes of study time was spent as a di agnostic study and the second 325.5 minutes was spent with the patient undergoing positive a irway titration. DIAGNOSTIC PORTION OF THE EVENING Sleep Architecture: Lights out was recorded at 2116 hundred hours on 12/03/2014 and lights on was recorded at 0527 hundred hours on 12/04/2014. The latency to sleep onset was short at 2.5 minutes. The patient slept for 126.5 minutes out of 165 minutes of diagnostic study time resulting an a sleep efficiency that was low at 76.7 %. The following were the percentages of the various sleep stages recorded during the diagnostic portion of the evening: N1 9.1%, N2 88.9%, N3 2%, and REM 0. Sleep was severely fragmented; the Arousal Index was 69.7 during the diagnostic portion of the evening. Sleep in the following body positions were recorded during the diagnostic portion of the ev ening: supine position exclusively. Cardiopulmonary Monitoring: During the diagnostic portion of the evening, the heart rate av eraged 70 beats per minute. Moderate rate variability was noted. The rhythm was sinus. During the diagnostic portion of the evening, there were 0 obstructive apneas, 0 mixed apne as, 0 central apneas, 131 hypopneas, and 15 Respiratory Effort Related Arousals (RERA's). Th e Respiratory Disturbance Index (RDI) was elevated at 69.2; the Apnea-Hypopnea Index was douglas vated at 62.1; the Apnea Index (AI) was normal at 0. The marvin oxygen saturation was 74% and the patient spent 27 minutes with an oxygen saturat ion of less than 88%. Limb Movement Monitoring: There were 0 Periodic Limb Movements (PLMS Index of 0) of which 0 were associated with arousals; the PLMS Arousal Index was normal at 0 during the diagnostic portion of the evening. The night technologist at this point appropriately made a diagnosis of Obstructive Sleep Ap gracia. The patient was awakened and positive airway pressure was instituted. TREATMENT PORTION OF THE EVENING: During the 325.5 minutes of treatment time, the patient slept for 290 minutes for a sleep e fficiency of 89 which was better than the sleep efficiency seen during the diagnostic portio n of the night. Sleep architecture improved significantly compared to the sleep architecture during the diagnostic portion of the evening. The patient was titrated to Positive Airway Pressure of 9cm which resulted in a AHI of 0. O xygen saturation marvin of 88% and an average oxygen saturation of 90%. Cardiopulmonary Monitoring: During the treatment portion of the evening, the heart rate ave raged in the high-60's to high 70's beats per minute. Moderate rate variability was noted. T he rhythm was sinus. Limb Movement Monitoring: There were 4 Periodic Limb Movements (PLMS Index of 0.8) of which 4 were associated with arousals; the PLMS Arousal Index was normal at 0.8 during the treatm ent portion of the evening. Interpretation: This Split-Night Polysomnogram is abnormal secondary to: Severe Obstructive Sleep Apnea is diagnosed based on the elevated AHI of 62.1, oxygen satur ation marvin of 74%, and 27 minutes with an oxygen saturation of less than 88% noted during t he diagnostic portion of the evening. CPAP of 9cm controls CONSUELO and resulted in improved sleep architecture. Suggestions: 1. The principles of sleep hygiene should be reviewed with the patient. 2. APAP 9-20cm is advised. BP 120/76 mmHg | Pulse 71 | Resp 16 | Wt 96.888 kg (213 lb 9.6 oz) | SpO2 94% A: CONSUELO: The patient has clinically significant and very severe CONSUELO. I've discussed this wit h the patient again. I've discussed this with her and I've discussed the mechanism by which CPAP controls CONSUELO. I've discussed CPAP use with her too. P: Resmed AirSense 10 autoset CPAP 9-20cm is prescribed. F/u 3 days after getting CPAP [facility]. Today, 15 minutes was spent face to face with the patient; the majority of time was spent c jessica regarding CONSUELO and its treatment. documented in th is encounter Plan of Treatment Not on filedocumented as of this encounter Visit Diagnoses + + | Diagnosis | + + | CONSUELO (obstructive sleep apnea) - Primary Obstructive sleep apnea (adult) (pediatric) | + + documented in this encounter
--- OUTSIDE RECORDS SUMMARY | ~2019-01-30 | XMS | Encounter Summary ---
Demographics + + + | Address | [address] [facility] [address] | | | [place] [address] | + + + | Home Phone | | + + + | Preferred Language | Unknown | + + + | Marital Status | | + + + | Rastafarian Affiliation | 1013 | + + + | Race | Unknown | + + + | Ethnic Group | Unknown | + + + Author + + + | Author | [facility] | | | and [place] | + + + | Organization | [facility] | | | and [place] [...] Team Providers + +------+ + | Care Interlocking Installer Name | Role | Phone | + [...] + | 07/28/ | Office | [facility] | Sundeep Ba PA | CONSUELO on CPAP (Primary | | 2018 | Visit | SLEEP DISORDER [address] | [address] | Dx) | | | | [address] [place] | [place] | | | | | [place] [address] | [address] | | | | | [phone] | | | +--------+---------+ + + + [...] in this encounter Progress Notes Earnestine Haley, Glass Unloading Equipment Tender - 07/28/2017 2:00 PM PDTFormatting of this note might b e different from the original. 07/28/17 1300 [place] Depression Inventory-II Depression Score 34 - Severe depression Insomnia Severity Index Insomnia Severity Index 24 [place] Sleepiness Scale Sitting and reading 2 Watching [...] AirSense 10 with nasal mask obtained from: [employer] in [place] pressure: 9-20 cm (lowered to 4-8 cm for comfort) Median: cm 95%: cm maximum: cm Nights using CPAP: No download % of nights >4 hours: [...] Exam Assessment: Problem #1: OBSTRUCTIVE SLEEP APNEA ([id number]) This is controlled with CPAP, but she hasn't used it in the last year. Plan: 1. She is to continue with CPAP indefinitely. 2. She is to work toward wearing her CPAP 100% of the time she is asleep. I will follow up again in 1 month, sooner prn. Fifteen minutes were spent [id number], wi th the majority of time spent [...]
--- OUTSIDE RECORDS SUMMARY | ~2019-01-30 | XMS | Encounter Summary ---
Demographics + + + | Address | [address] [facility] [address] | | | [place] [address] | + + + | Home Phone | | + + + | Preferred Language | Unknown | + + + | Marital Status | | + + + | Yazidism Affiliation | 1013 | + + + | Race | Unknown | + + + | Ethnic Group | Unknown | + + + Author + + + | Author | [facility] | | | and [place] | + + + | Organization | [facility] | | | and [place] [...] Team Providers + +------+ + | Care Hot Box Checker Name | Role | Phone | + +------+ + | Teena Busch NP | PCP | | + +------+ + Reason for Visit + + + | Reason | Comments | + + + | Medication Refill | | + + + Encounter Details +--------+--------+ + + + | Date | Type | Department | Care Team | Description | +--------+--------+ + + + | 11/23/ | Refill | [facility] | Leonidas Huddleston, | Medication Refill | | 2015 | | PHYSIATRY [address] | MD [address] | | | | | [place], | [place], [place] | | | | | [place] [address] | [address] | | | | | [phone] | | | +--------+--------+ + + + Social History + + [...]
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
--- OUTSIDE RECORDS SUMMARY | ~2019-01-30 | XMS | Encounter Summary ---
Demographics + + + | Address | [address] [facility] [address] | | | [place] [address] | + + + | Home Phone | | + + + | Preferred Language | Unknown | + + + | Marital Status | | + + + | Gnosticism Affiliation | [id number] | + + + | Race | Unknown | + + + | Ethnic Group | Unknown | + + + Author + + + | Author | [facility] | | | and [place] | + + + | Organization | [facility] | | | and [place] [...] Team Providers + +------+ + | Care Slotter Operator Helper Name | Role | Phone | [...] + + | 12/17/ | Emergency | [facility] | Rj Lueng MD | Knee contusion, | | 2014 | | [facility] | [address] | right, initial | | | | CENTER [address] | [place], [place] | encounter (Primary | | | | [place], [place] | [address] | Dx); Knee sprain and | | | | [address] | | strain, right, | | | | [phone] | | initial encounter | +--------+ + [...] cannot be sent through Care Everywhere.STRAINS AND SPR AINS, TREATING (LATVIAN)documented in this encounter Medications at Time of [...]
--- OUTSIDE RECORDS SUMMARY | ~2019-01-30 | XMS | Encounter Summary ---
Demographics + + + | Address | [address] [facility] [address] | | | [place] [address] | + + + | Home Phone | | + + + | Preferred Language | Unknown | + + + | Marital Status | | + + + | Taoism Affiliation | 1013 | + + + | Race | Unknown | + + + | Ethnic Group | Unknown | + + + Author + + + | Author | [facility] | | | and [place] | + + + | Organization | [facility] | | | and [place] [...] Team Providers + +------+ + | Care Shipping Technician Name | Role | Phone | [...] PHYSIATRY [address] | MD [address] | | | | | [place], | [place], [place] | | | | | [place] [address] | [address] | | | | | [phone] | | | +--------+--------+ + + + [...]
--- OUTSIDE RECORDS SUMMARY | ~2019-01-30 | XMS | Encounter Summary ---
Demographics + + + | Address | [address] [facility] [address] | | | [place] [address] | + + + | Home Phone [...] Author | [facility] | | | and [place] | + + + | Organization | [facility] | | | and [...] Team Providers + +------+ + | Care Industrial Rehabilitation Consultant Name | Role | Phone | + +------+ + | Abimael Devlin MD | PCP | | + +------+ + Reason for Visit + + + | Reason | Comments | + + + | Procedure | colon screen | + + + Encounter Details +--------+ + + + + | Date | Type | Department | Care Team | Description | +--------+ + + + + | 09/24/ | Telephone | [facility] | Patrick England MD | Procedure (colon | | 2017 | | GASTROENTEROLOGY | [address], [place] | screen ) | | | | [address] [place] | [address] [place], [place] | | | | | [address] [place], [place] | [address] | | | | | [address] | | | | | | [phone] | | | +--------+ + + + [...] + | Diagnosis | + + | Special screening for malignant neoplasms, colon - Primary | + + | Cannabis use without complication Cannabis abuse, unspecified | + + | Obstructive sleep apnea (adult) (pediatric) | + + | History of diverticulosis | + + | Bipolar disorder, unspecified (HCC) Bipolar disorder, unspecified | + + | Schizophrenia, unspecified type (HCC) | + + | Combinations of drug dependence excluding opioid type drug, continuous (HCC) | | Combinations of drug dependence excluding opioid type drug, continuous | + + documented in this encounter"
--- OUTSIDE RECORDS SUMMARY | ~2019-01-30 | XMS | Encounter Summary ---
Demographics + + + | Address | [address] [facility] [address] | | | [place] [address] | + + + | Home Phone [...] + + | Author | [facility] | | | and [place] | + + + | Organization | [facility] | | | and [place] | [...] Team Providers + +------+ + | Care Finish Painter Name | Role | Phone | + [...] + + | 09/24/ | Telephone | [facility] [place] | Katy Huddlestonterrance [place], | Other | | 2014 | | PHYSIATRY [address] | MD [address] | | | | | [place], | [place], [place] | | | | | [place] [address] | [address] | | | | | [phone] | | | +--------+ + + + [...]
--- OUTSIDE RECORDS SUMMARY | ~2019-01-30 | XMS | Encounter Summary ---
Demographics + + + | Address | [address] [facility] | | | [place] [address] | + + + | Home Phone [...] + + | Author | [facility] | | | and [place] | + + + | Organization | [facility] | | | and [place] | + [...] Team Providers + +------+ + | Care High School Learning Support Teacher Name | Role | Phone | + [...] Right hip | Lisa, | [address] | | | | | pain | Paco Cox MD | [place], | | | | | Procedures | [address] | [place] | | | | | [place] Asp | [place] | [address] | | | | | and/or Inj | [place], [place] | Phone: | | | | | Major Joint | [address] | [phone] | | | | | Right CHG | Phone: | Fax: | | | | | FLUOROSCOPIC | [phone] | [phone] | | | | | GUIDANCE | Fax: | | | | | | NEEDLE | [phone] | | | | | | PLACEMENT | | | | | | | ADD ON DE | | | | | | | [...] Right hip | Lisa, | [address] | | | | | pain | Paco Cox MD | [place], | | | | | Bursitis of | [address] | [place] | | | | | right hip | [place] | [address] | | | | | Procedures | [place], [place] | Phone: | | | | | [place] | [address] | [phone] | | | | | ARTHROCENTES | Phone: | Fax: | | | | | IS | [phone] | [phone] | | | | | ASPIR&/INJ | Fax: | | | | | | MAJOR | [phone] | | | | | | JT/BURSA W/O | | | | | | | [place] | | | | | | | [...] + + | 12/26/ | Hospital | [facility] | Romevickiedominik, | Right hip pain | | 2018 | Encounter | MED CTR XRAY [address] | CHRISTIANA Kuhn [address] | | | | | [address] [place] | [address], | | | | | [place] [address] | [place] [address] | | | | | [phone] | [phone] | | | | | | | | | | | | Numerical Control ProgrammerTono | | +--------+ + + + + [...] + + | Performing | Address | City[facility] | Phone Number | | Organization | [...] +------+------+------+ | betamethasone (CELESTONE | Given | 10/15/20 | 9 mg | | | | [...] | lidocaine buffered 1.3% | Given | 10/15/20 | 3 mLs | | | | [...]
--- OUTSIDE RECORDS SUMMARY | ~2019-01-30 | XMS | Encounter Summary ---
Demographics + + + | Address | [address] [facility] [address] | | | [place] [address] | + + + | Home Phone | | + + + | Preferred Language | Unknown | + + + | Marital Status | | + + + | Judaism Affiliation | 1013 | + + + | Race | Unknown | + + + | Ethnic Group | Unknown | + + + Author + + + | Author | [facility] | | | and [place] | + + + | Organization | [facility] | | | and [...] Team Providers + +------+ + | Care Advisory Internship Name | Role | Phone | + +------+ + | Abimael Devlin MD | PCP | | + +------+ + Encounter Details +--------+ + + + + | Date | Type | Department | Care Team | Description | +--------+ + + + + | 09/30/ | Episode | [facility] | [place] | | | 2017 | Changes | GASTROENTEROLOGY | AVTAR Tavarez | | | | | [address] [place] | | | | | | [address] [place] | | | | | | [address] | | | | | | [phone] | | | +--------+ + + + [...]
--- OUTSIDE RECORDS SUMMARY | ~2019-01-30 | XMS | Encounter Summary ---
Demographics + + + | Address | [address] [facility] | | | [place] [address] | + + + | Home Phone | | + + + | Preferred Language | Unknown | + + + | Marital Status | | + + + | Holiness Affiliation | 1013 | + + + | Race | Unknown | + + + | Ethnic Group | Unknown | + + + Author + + + | Author | [facility] | | | and [place] | + + + | Organization | [facility] | | | and [...] Team Providers + +------+ + | Care Human Service Coordinator Name | Role | Phone | + [...] + + | 12/06/ | Telephone | [facility] [place] [place] | Katy Huddlestonterrance [place], | Other | | 2014 | | PHYSIATRY [address] | MD [address] | | | | | [place], | [place], [place] | | | | | [place] [address] | [address] | | | | | [phone] | | | +--------+ + + + [...]
--- OUTSIDE RECORDS SUMMARY | ~2019-01-30 | XMS | Encounter Summary ---
Demographics + + + | Address | [address] [facility] | | | [place] [address] | + + + | Home Phone | | + + + | Preferred Language | Unknown | + + + | Marital Status | | + + + | Scientology Affiliation | 1013 | + + + | Race | Unknown | + + + | Ethnic Group | Unknown | + + + Author + + + | Author | [facility] | | | and [place] | + + + | Organization | [facility] | | | and [place] [...] Team Providers + +------+ + | Care Tools Programmer Name | Role | Phone | + [...] + + | 04/14/ | [facility] | [facility] | Sundeep Ba PA | [place] on CPAP (Primary | | 2016 | Visit | SLEEP DISORDER [address] | [address] | Dx) | | | | [address] [place] | [place] | | | | | [place] [address] | [address] | | | | | [phone] | | | +--------+---------+ + + + [...] AirSense 10 with nasal mask obtained from: [employer] in [place] pressure: 9-20 cm (lowered to 4-8 cm [...] Exam Assessment: Problem #1: OBSTRUCTIVE SLEEP APNEA ([id number]) This is controlled with CPAP. She has [...]
--- OUTSIDE RECORDS SUMMARY | ~2019-01-30 | XMS | Encounter Summary ---
Demographics + + + | Address | [address] [facility] | | | [place] [address] | + + + | Home Phone | | + + + | Preferred Language | Unknown | + + + | Marital Status | | + + + | Mandaeism Affiliation | 1013 | + + + | Race | Unknown | + + + | Ethnic Group | Unknown | + + + Author + + + | Author | [facility] | | | and [place] | + + + | Organization | [facility] | | | and [place] [...] Team Providers + +------+ + | Care Blanker Operator Name | Role | Phone | + +------+ + | Wicho Starkey MD | PCP | | + +------+ + Reason for Visit + + + | Reason | Comments | + + + | Dizziness | | + + + Evaluate & Treat (Routine) +--------+ + + + + + | Status | Reason | Specialty | Diagnoses / | Referred By | Referred To | | | | | Procedures | Contact | Contact | +--------+ + + + + + | Closed | Specialty | Audiology | Diagnoses | Huddleston, | [facility] | | | Services | | Benign | Leonidas Irving MD | Audiology And | | | Required | | paroxysmal | [address] | Hearing Aid | | | | | positional | [address] | Services [address] | | | | | vertigo | [place], | [address] | | | | | Procedures | [place] [address] | [place] [address] | | | | | 10/25 PEND | Phone: | [place], | | | | | [place] | [phone] | [place] [address] | | | | | | Fax: | Phone: | | | | | | [phone] | [phone] | | | | | | | Fax: | | | | | | | [phone] | +--------+ + + + + + Encounter Details +--------+---------+ + + + | Date | Type | Department | Care Team | Description | +--------+---------+ + + + | 11/27/ | Office | [facility] [place] | Leonidas Huddleston, | Dizziness and | | 2014 | Visit | AUDIOLOGY AND | [address] | giddjimenez (Primary | | | | HEARING AID SERVICES | [place], [place] | Dx) | | | | [address] | [address] | | | | | [place] [address] [facility] | | | | | | [place] [address] | Wanrey, [place], [place] | | | | | [phone] | CCC-A [address] | | | | | | ST [place] [address] [facility] | | | | | | [place] [address] | | | | | | [phone] | | | | | | | [...] documented as of this encounter Progress Notes Nigel Andersen, MS CCC-A - 11/27/2014 3:09 PM PDTReferring Provider: Leonidas Huddleston M.D. Results of Hearing Test: Right ear--Pure tone air and bone conduction testing showed a U-sh aped audiogram with threshold of 15-40dB at 250Hz through 8KHz.. Left ear --Pure tone air and bone conduction testing showed a shallow U-shaped audiogra m of 10-40dB at 250Hz through 8KHz. Speech Recognition Thresholds were 25dB in the right ear and 25dB in the left ear. Speech Discrimination Scores were 92% in right ear and 96% in the left ear. Tympanometry showed normal type A tracing in left ear and positive middle-ear air press ure in the right ear. Impression and Recommendation: Dizziness. Follow-up care with Dr. Huddleston, Sr. Thank you. documented in thi s encounter Plan of Treatment Not on filedocumented as of this encounter Procedures + +--------+ + + + | Procedure Name | Priori | Date/Time | Associated Diagnosis | Comments | | | ty | | | | + +--------+ + + + | DIAGNOSTIC REPORT - | | 11/27/2014 | | | | EXTERNAL SCAN | | 12:00 AM | | | | | | PDT | | | + +--------+ + + + documented in this encounter Visit Diagnoses + + | Diagnosis | + + | Dizziness and giddiness - Primary | + + documented in this encounter"
--- OUTSIDE RECORDS SUMMARY | ~2019-01-30 | XMS | Encounter Summary ---
Demographics + + + | Address | [address] [facility] | | | [place] [address] | + + + | Home Phone | | + + + | Preferred Language | Unknown | + + + | Marital Status | | + + + | Uatsdin Affiliation | 1013 | + + + | Race | Unknown | + + + | Ethnic Group | Unknown | + + + Author + + + | Author | [facility] | | | and [place] | + + + | Organization | [facility] | | | and [place] [...] Team Providers + +------+ + | Care Gas Furnace Installer Name | Role | Phone | [...] PHYSIATRY [address] | MD [address] | headache; | | | | [place], | [place], [place] | Fibromyalgia | | | | [place] [address] | [address] | | | | | [phone] | | | +--------+ + + + [...]
--- OUTSIDE RECORDS SUMMARY | ~2019-01-30 | XMS | Encounter Summary ---
Demographics + + + | Address | [address] [facility] | | | [place] [address] | + + + | Home Phone | | + + + | Preferred Language | Unknown | + + + | Marital Status | | + + + | Yazdanism Affiliation | 1013 | + + + | Race | Unknown | + + + | Ethnic Group | Unknown | + + + Author + + + | Author | [facility] | | | and [place] | + + + | Organization | [facility] | | | and [place] [...] Team Providers + +------+ + | Care Authorization Rep Name | Role | Phone | + [...] Right hip | Lisa, | [address] | | | | | pain | Paco Cox MD | [place], | | | | | Procedures | [address] | [place] | | | | | [place] Asp | [place] | [address] | | | | | and/or Inj | [place], [place] | Phone: | | | | | Major Joint | [address] | [phone] | | | | | Right CHG | Phone: | Fax: | | | | | FLUOROSCOPIC | [phone] | [phone] | | | | | GUIDANCE | Fax: | | | | | | NEEDLE | [phone] | | | | | | PLACEMENT | | | | | | | ADD ON SD | | | | | | | [...] | (Primary Dx) | | | | [place], | [place], [place] | | | | | [place] [address] | [address] | | | | | [phone] | | | +--------+ + + + [...]
--- OUTSIDE RECORDS SUMMARY | ~2019-01-30 | XMS | Clinical Summary ---
Demographics + + + | Address | [address] | | | [place] [address] | + + + | Home Phone | | + + + | Preferred Language | Unknown | + + + | Marital Status | Single | + + + | Protestant Affiliation | Unknown | + + + | Race | Unknown | + + + | Ethnic Group | Unknown | + + + Author + + + | Author | [facility] (Historical as of | | | 10-28-18) | + + + | Organization | [facility] (Historical as of | | | 10-28-18) | + + + | Address | Unknown | + + + | Phone | Unavailable | + + + Support + + +---------+ + | Name | Relationship | Address | Phone | + + +---------+ + | Christina Muhammad | ECON | Unknown | | + + +---------+ + Care Team Providers + +------+ + | Care Layboy Operator Name | Role | Phone | [...] | + + + | Methamphetamine abuse (HCC) | 11/11/2011 | + + + [...] + + | Father | | | [place] | | | | (Age | | [...] | | | | | (#1) | 9 | | | + + + + [...] +------+-------+ + | MEDICAID | [place] | [id number] | | | [address] | | | N | | | | [place] | | | [place] | | | | [address] | | | DEALER ACCOUNTS INVESTIGATOR | | | | | + +--------+ [...] Self | [birth year] | Home: | [address] | | | al/Fam | | [phone] | [address] [place] | | | [place] | | | [phone] | [phone] | + +--------+ +--------+ + +
--- OUTSIDE RECORDS SUMMARY | ~2019-01-30 | XMS | Encounter Summary ---
Demographics + + + | Address | [address] [facility] | | | [place] [address] | + + + | Home Phone | | + + + | Preferred Language | Unknown | + + + | Marital Status | | + + + | Scientology Affiliation | 1013 | + + + | Race | Unknown | + + + | Ethnic Group | Unknown | + + + Author + + + | Author | [facility] | | | and [place] | + + + | Organization | [facility] | | [...] Team Providers + +------+ + | Care Executive Sales Manager Name | Role | Phone | + +------+ + | Wicho Starkey MD | PCP | | + +------+ + Reason for Visit + + + | Reason | Comments | + + + | Knee Pain | R | + + + Encounter Details +--------+ + + + + | Date | Type | Department | Care Team | Description | +--------+ + + + + | 12/20/ | Emergency | [facility] | Rj Leung MD | Knee pain, acute, | | 2014 | | MED CTR EMERGENCY | [address] | unspecified | | | | CENTER [address] | [place] | laterality (Primary | | | | [place] | [address] | Dx) | | | | [address] | | | | | | [phone] | | | +--------+ + + + [...] + + + | Blood Pressure | 129/64 | 12/20/2014 10:26 AM | | | | | PDT | | + + + + + | Pulse | 72 | 12/20/2014 11:06 AM | | | | | PDT | | + + + + + | Temperature | 36.2 C (97.1 F) | 12/20/2014 10:17 AM | | | | | PDT | | + + + + + | Respiratory Rate | 16 | 12/20/2014 10:17 AM | | | | | PDT | | + + + + + | Oxygen Saturation | 97% | 12/20/2014 11:06 AM | | | | | PDT | | + + + + + | Inhaled Oxygen | - | - | | | Concentration | | | | + + + + + | Weight | 90.7 kg (200 lb) | 12/20/2014 10:17 AM | | | | | PDT | | + + + + + | Height | 172.7 cm (5' 8") | 12/20/2014 10:17 AM | | | | | PDT | | + + + + + | Body Mass Index | 30.41 | 12/20/2014 10:17 AM | | | | | PDT | | + + + + + documented in this encounter Discharge Instructions Instructions Rj Leung MD - 12/20/2014Pain medication as needed Ice to help with swelling Continue knee immobilizer Follow-up with orthopedics as discussed with Dr. Flaquito Paul for worsening symptoms, not improving, other new complaints documented in this encounter [...] tablets by | 20 | 0 | 12/21/19 | | | oxyCODONE-acetaminop | mouth every 6 hours | tablet | | 15 | 6 | | hen (PERCOCET) 5-325 | as [...] | Diagnosis | + + | Knee pain, acute, unspecified laterality - Primary | + + documented in this encounter
--- OUTSIDE RECORDS SUMMARY | ~2019-01-30 | XMS | Encounter Summary ---
Demographics + + + | Address | [address] [facility] [address] | | | [place] [address] | + + + | Home Phone [...] Author | [facility] | | | and [place] | + + + | Organization | [facility] | | | and [place] | [...] Team Providers + +------+ + | Care Sample Carrier Name | Role | Phone | + [...] + + | 12/17/ | Emergency | [facility] | Rj Leung MD | Knee contusion, | | 2014 | | MED CTR EMERGENCY | [address] | right, initial | | | | CENTER [address] | [place], [place] | encounter (Primary | | | | [place], [place] | [address] | Dx); Knee sprain and | | | | [address] | | strain, right, | | | | [phone] | | initial encounter | +--------+ + [...] through Care Everywhere.STRAINS AND SPR AINS, TREATING (MALIAN)documented in this encounter Medications at Time of [...]
--- OUTSIDE RECORDS SUMMARY | ~2019-01-30 | XMS | Encounter Summary ---
Demographics + + + | Address | [address] [facility] | | | [place] [address] | + + + | Home Phone | | + + + | Preferred Language | Unknown | + + + | Marital Status | | + + + | Mormon Affiliation | 1013 | + + + | Race | Unknown | + + + | Ethnic Group | Unknown | + + + Author + + + | Author | [facility] | | | and [place] | + + + | Organization | [facility] | | | and [place] [...] Team Providers + +------+ + | Care Cutter Helper Name | Role | Phone | + +------+ + PCP | Unavailable | + +------+ + Encounter Details +--------+ + + + + | Date | Type | Department | Care Team | Description | +--------+ + + + + | 06/15/ | Hospital | [facility] | Trevor Cárdenas MD | | | 2010 | Encounter | MED CTR XRAY [address] | [address] | | | | | [place] | [place] | | | | | [place] [address] | [address] | | | | | [phone] | | | +--------+ + + + [...] Performed At | + + + | [facility] Diagnostic Imaging Department | [facility] | | [address] [facility] | [facility] | | E C H O C | DIAG IMG | | A R D I O G R A P H Y R E P O R T HEIGHT: 5'9" | | | WEIGHT: 240# LENS GRINDER ROUGH: TD REFERRING PHYSICIAN: Dr. Murray | | [...] Brendan Swan, | | | MD> 06/19/10 7056 | | + + + + + | Procedure Note | + + | Ever Almazan - 04/20/2013 2:37 PM [facility] | | Diagnostic Imaging Department | | [address] [facility] | | | | | | | | | | | | E C H O C A R D I O G R A P H Y R E P O R T | | | | | | HEIGHT: 5'9" WEIGHT: 240# LENS GRINDER ROUGH: TD | | REFERRING PHYSICIAN: Dr. Trevor [...]
--- OUTSIDE RECORDS SUMMARY | ~2019-01-30 | XMS | Encounter Summary ---
Demographics + + + | Address | [address] [facility] | | | [place] [address] | + + + | Home Phone [...] Author | [facility] | | | and [place] | + + + | Organization | [facility] | | | and [...] Team Providers + +------+ + | Care Inspector Floor Sub Assembly Name | Role | Phone | + +------+ + | Wicho Starkey MD | PCP | | + +------+ + Reason for Visit Evaluate & Treat (Routine) +--------+ + + [...] Medicine | Obstructive | Andre Arnold | [place] [address] [address] | | | Required | | sleep apnea | MD David Montoya | Justa | | | | | (adult) | [address] | [place], | | | | | (pediatric) | [place] | [place] [address] | | | | | Bipolar I | [place], [place] | Phone: | | | | | disorder, | [address] | [phone] | | | | | most recent | Phone: | Fax: | | | | | episode (or | [phone] | [phone] | | | | | current) | Fax: | | | | | | unspecified | [phone] | | | | | | Type [...] | | | | | | | [place] POLYSOM | | | | | | | 6/>YRS SLEEP | | | | | | | 4/> ADDL | | | | | | | [place] ATTND | | | | | | | [place] POLYSOM | | | | | | | 6/>YRS SLEEP | | | | | | | W/CPAP 4/> | | | | | | | ADDL [place] | | | | | | | ATTND | | | | | | | Having [address] | | | | | | | not [address] | | | +--------+ + + + + + Encounter Details +--------+ + + + + | Date | Type | Department | Care Team | Description | +--------+ + + + + | 12/03/ | Hospital | [facility] | Andre Ugarte | Obstructive sleep | | 2014 | Encounter | MED CTR SLEEP | MD Jan [address] | apnea (adult) | | | | [address] [place] | [facility] | (pediatric) (Primary | | | | [place], [place] | [place] [address] | Dx); [place] | | | | [address] | [phone] | (obstructive sleep | | | | [phone] | | apnea) | +--------+ + + + + Social [...] + | DIAGNOSTIC REPORT - | | 12/03/2014 | | | | EXTERNAL SCAN | | 12:00 AM | | | | | | PDT | | | + +--------+ + + + documented in this encounter Visit Diagnoses + + | Diagnosis | + + | Obstructive sleep apnea (adult) (pediatric) - Primary | + + | [place] (obstructive sleep apnea) Obstructive sleep apnea (adult) (pediatric) | + + documented in this encounter"
--- OUTSIDE RECORDS SUMMARY | ~2019-01-30 | XMS | Encounter Summary ---
Demographics + + + | Address | [address] [facility] | | | [place] [address] | + + + | Home Phone | | + + + | Preferred Language | Unknown | + + + | Marital Status | | + + + | Mormon Affiliation | 1013 | + + + | Race | Unknown | + + + | Ethnic Group | Unknown | + + + Author + + + | Author | [facility] | | | and [place] | + + + | Organization | [facility] [...] Team Providers + +------+ + | Care Medical Record Administrator Name | Role | Phone | [...] | Physical | Diagnoses | Federico | Harvey [place] | | | Services | Medicine and | Right hip | Andre Serrato | Physiatry | | | Required | Rehabilitatio | pain | [address] | [address] | | | | n | Trochanteric | [address] | [place], | | | | | bursitis of | [place], | [place] | | | | | right hip | [place] [address] | [address] | | | | | Primary | Phone: | Phone: | | | | | osteoarthrit | [phone] | [phone] | | | | | is of right | Fax: | Fax: | | | | | hip | [phone] | [phone] | +--------+ + + + + + Encounter Details +--------+ + + + + | Date | Type | Department | Care Team | Description | +--------+ + + + + | 10/28/ | Orders Only | [facility] | Andre Caballero | Right hip pain | | 2018 | | ORTHOPEDIC SURGERY | MD Rojelio [address] | (Primary Dx); | | | | [address] | [place] | Trochanteric | | | | [place], [place] | [address] | bursitis of right | | | | [address] | | hip; Primary | | | | [phone] | | osteoarthritis of | | | [...] [place] | Outpatient | Routin | Right hip [...]
--- OUTSIDE RECORDS SUMMARY | ~2019-01-30 | XMS | Encounter Summary ---
Demographics + + + | Address | [address] [facility] | | | [place] [address] | + + + | Home Phone | | + + + | Preferred Language | Unknown | + + + | Marital Status | | + + + | Voodoo Affiliation | 1013 | + + + | Race | Unknown | + + + | Ethnic Group | Unknown | + + + Author + + + | Author | [facility] | | | and [place] | + + + | Organization | [facility] | | | and [...] Team Providers + +------+ + | Care Forensic Scientist Name | Role | Phone | + [...] | | | | CENTER [address] | [place] | laterality (Primary | | | | [place] | [address] | Dx) | | | | [address] | | | | | | [phone] | | | +--------+ + + + [...]
--- OUTSIDE RECORDS SUMMARY | ~2019-01-30 | XMS | Encounter Summary ---
Demographics + + + | Address | [address] [facility] [address] | | | [place] [address] | + + + | Home Phone [...] | [facility] | | | and [place] | + + + | Organization | [facility] | | | and [place] | [...] Team Providers + +------+ + | Care Ornamental Bronze Worker Name | Role | Phone | [...] + + | 03/15/ | Office | [facility] | Andre Caballero | Primary | | 2019 | Visit | ORTHOPEDIC SURGERY | MD [address] [facility] | osteoarthritis of | | | | [address] [facility] | [place] | right hip (Primary | | | | [place], [place] | [address] | Dx) | | | | [address] | | | | | | [phone] | | | +--------+---------+ + + + [...] cessation. She also will work diligently on [employer] and will be seen back or office [...]
--- OUTSIDE RECORDS SUMMARY | ~2019-01-30 | XMS | Encounter Summary ---
Demographics + + + | Address | [address] [facility] [address] | | | [place] [address] | + + + | Home Phone | | + + + | Preferred Language | Unknown | + + + | Marital Status | | + + + | Zoroastrianism Affiliation | 1013 | + + + | Race | Unknown | + + + | Ethnic Group | Unknown | + + + Author + + + | Author | [facility] | | | and [place] | + + + | Organization | [facility] | | | and [...] Team Providers + +------+ + | Care Angiography Nurse Name | Role | Phone | + [...] | | | | CENTER [address] | [place] | laterality (Primary | | | | [place] | [address] | Dx) | | | | [address] | | | | | | [phone] | | | +--------+ + + + [...]
--- OUTSIDE RECORDS SUMMARY | ~2019-01-30 | XMS | Encounter Summary ---
Demographics + + + | Address | [address] [facility] [address] | | | [place] [address] | + + + | Home Phone [...] | Author | [facility] | | | and [place] | + + + | Organization | [facility] | | | and [place] [...] Team Providers + +------+ + | Care Locator Name | Role | Phone | + +------+ + PCP | Unavailable | + +------+ + Encounter Details +--------+ + + + + | Date | Type | Department | Care Team | Description | +--------+ + + + + | 04/26/ | Hospital | [facility] | Conversion | Pain | | 2013 | Encounter | CONVERSION DEP [address] | Transaction, | | | | | [place] | Provider Unknown | | | | | [place] | | | | | | [address] | (Fax) | | | | | [phone] | | | +--------+ + + + [...] + +--------+ + + + | XR CHEST 1 VIEW | Routin | 11/10/2011 | | Results for this | | | e | 3:04 AM | | procedure are in the | | | | PDT | | results section. | + +--------+ + + + documented in this encounter Results XR Chest 1 Vw (11/10/2011 3:04 AM PDT) + + | Specimen | + + | | + + + + + | Narrative | Performed At | + + + | This is a non-reportable procedure without a radiologist report and | | | is used for image storage only | | + + + + + | Procedure Note | + + | Tha Ever Reynoso - 10/27/2018 10:58 PM PDT This is a non-reportable procedure | | without a radiologist report and isused for image storage only | + + documented in this encounter Visit Diagnoses + + | Diagnosis | + + | Pain Generalized pain | + + documented in this encounter"
--- OUTSIDE RECORDS SUMMARY | ~2019-01-30 | XMS | Encounter Summary ---
Demographics + + + | Address | [address] [facility] [address] | | | [place] [address] | + + + | Home Phone | | + + + | Preferred Language | Unknown | + + + | Marital Status | | + + + | Lutheran Affiliation | 1013 | + + + | Race | Unknown | + + + | Ethnic Group | Unknown | + + + Author + + + | Author | [facility] | | | and [place] | + + + | Organization | [facility] | | | and [...] Team Providers + +------+ + | Care Catering Staff Member Name | Role | Phone | + +------+ + | Abimael Devlin MD | PCP | | + +------+ + Reason for Visit + + + | Reason | Comments | + + + | Hip Pain | | + + + Encounter Details +--------+ + + + + | Date | Type | Department | Care Team | Description | +--------+ + + + + | 10/29/ | Emergency | [facility] | Erasmo Callahan | right Gaby, | | 2017 | | [facility] | Carrillo Ayoub MD | initial encounter | | | | CENTER [address] | [address] | (Primary Dx) | | | | [place], [place] | [place], [place] | | | | | [address] | [address] | | | | | [phone] | | | +--------+ + + + [...] + + + | Blood Pressure | 121/72 | 10/29/2016 6:37 PM | | | | | PDT | | + + + + + | Pulse | 70 | 10/29/2016 6:37 PM | | | | | PDT | | + + + + + | Temperature | 36.4 C (97.6 F) | 10/29/2016 5:49 PM | | | | | PDT | | + + + + + | Respiratory Rate | 16 | 10/29/2016 5:49 PM | | | | | PDT | | + + + + + | Oxygen Saturation | 91% | 10/29/2016 6:37 PM | | | | | PDT | | + + + + + | Inhaled Oxygen | - | - | | | Concentration | | | | + + + + + | Weight | 112 kg (247 lb) | 10/29/2016 5:49 PM | | | | | PDT | | + + + + + | Height | 172.7 cm (5' 8") | 10/29/2016 5:49 PM | | | | | PDT | | + + + + + | Body Mass Index | 37.56 | 10/29/2016 5:49 PM | | | | | PDT | | + + + + + documented in this encounter Discharge Instructions Instructions Erasmo Callahan MD - 10/29/2016Do icing to right hip. Return for severe worsening symptoms. Please follow-up with your primary care physician. documented in this encounter Medications at Time [...] tablets by | 15 | 0 | 10/30/19 | | | HYDROcodone-acetamin | mouth every 6 hours | tablet | | 17 | 8 | | ophen (NORCO) 5-325 | as [...] + +--------+ + + + | CT HIP RIGHT WO | Routin | 10/29/2016 | | Results for this | | CONTRAST | e | 6:33 PM | | procedure are in the | | | | PDT | | results section. | + +--------+ + + + documented in this encounter Results CT Hip Right wo Contrast (10/29/2016 6:33 PM PDT) + + | Specimen | + + | | + + + + + | Narrative | Performed At | + + + | UNENHANCED CT RIGHT HIP 10/29/2016 6:15 PM CLINICAL HISTORY: | [facility] | | right hip pain and twisting injury COMPARISON: CT August 23 | | | TECHNIQUE: Axial images are performed through the right hip. | | | Coronal and sagittal reformations are also performed. FINDINGS: | | | No fracture is visible. The right hip joint is mildly narrowed but | | | otherwise maintained along with the imaged sacroiliac joint. Mild | | | erosive change is again suggested in the anterior right pubis at the | | | symphysis, which is maintained. A fat-containing right inguinal | | | hernia is present. The myocutaneous structures are unremarkable. | | | The uterus is absent. Imaged pelvic contents are otherwise | | | unremarkable. IMPRESSION - 1. MILD RIGHT HIP JOINT SPACE | | | NARROWING WITHOUT EVIDENCE OF TRAUMATIC INJURY. 2. MILD EROSIVE | | | CHANGE INVOLVING THE RIGHT PUBIS AT THE SYMPHYSIS, POSSIBLY | | | INFLAMMATORY IN NATURE. 3. FAT-CONTAINING RIGHT INGUINAL HERNIA. | | | Images were provided for interpretation on October 29, 2016 at | | | 1830 hours. Results were finalized at 1850 hours. Dictated and | | | Signed by: Alberto Varghese MD Electronically signed: 10/29/2016 6:47 | | | PM | | + + + + + | Procedure Note | + + | Tha, Rad Results In - 10/29/2016 6:50 PM PDT [address]ED CT RIGHT HIP 10/29/2016 6:15 | | PM CLINICAL HISTORY: right hip pain and twisting injury COMPARISON: CT August 23 | | TECHNIQUE: Axial images are performed through the right hip. Coronal andsagittal | | reformations are also performed. FINDINGS: No fracture is visible. The right hip | | joint is mildly narrowed butotherwise maintained along with the imaged sacroiliac joint. | | Mild erosivechange is again suggested in the anterior right pubis at the symphysis, | | which ismaintained. A fat-containing right inguinal hernia is present. Themyocutaneous | | structures are unremarkable. The uterus is absent. Imaged pelviccontents are | | otherwise unremarkable. IMPRESSION - 1. MILD RIGHT HIP JOINT SPACE NARROWING WITHOUT | | EVIDENCE OF TRAUMATIC INJURY.2. MILD EROSIVE CHANGE INVOLVING THE RIGHT PUBIS AT THE | | SYMPHYSIS, POSSIBLYINFLAMMATORY IN NATURE.3. FAT-CONTAINING RIGHT INGUINAL | | HERNIA.Images were provided for interpretation on October 29, 2016 at 1830 hours. Results | | were finalized at 1850 hours.Dictated and Signed by: Alberto Varghese MD Electronically | | signed: 10/29/2016 6:47 PM | |contents are otherwise unremarkable. | | | |IMPRESSION - | |1. MILD RIGHT HIP JOINT SPACE NARROWING WITHOUT EVIDENCE OF TRAUMATIC INJURY. | | | |2. MILD EROSIVE CHANGE INVOLVING THE RIGHT PUBIS AT THE SYMPHYSIS, POSSIBLY | |INFLAMMATORY IN NATURE. | | | |3. FAT-CONTAINING RIGHT INGUINAL HERNIA. | | | |Images were provided for interpretation on October 29, 2016 at 1830 hours. | |Results were finalized at 1850 hours. | | | |Dictated and Signed by: Alberto Varghese MD | | Electronically signed: 10/29/2016 6:47 PM | + + + +---------+ + + | Performing | Address | City[facility] | Phone Number | | Organization | | | | + +---------+ + + | [facility] | | | | + +---------+ + + documented in this encounter Visit Diagnoses + + | Diagnosis | + + | Hip strain, right, initial encounter - Primary | + + documented in this encounter Administered Medications + +--------+ +---------+------+------+ | Medication Order | MAR | Action | Dose | Rate | Site | | | Action | Date | | | | + +--------+ +---------+------+------+ | HYDROcodone-acetaminophen | Given | 10/30/19 | 2 | | | | (NORCO) 5-325 mg per tablet 2 | | 17 6:32 | tablets | | | | tablet 2 tablet, Oral, ONCE, Fri | | PM PDT | | | | | 10/29/16 at 1810, For 1 dose | | | | | | + +--------+ +---------+------+------+ +---+---+ | | | +---+---+ documented in this encounter
--- OUTSIDE RECORDS SUMMARY | ~2019-01-30 | XMS | Encounter Summary ---
Demographics + + + | Address | [address] [facility] [address] | | | [place] [address] | + + + | Home Phone [...] | Author | [facility] | | | and [place] | + + + | Organization | [facility] | | | and [place] [...] Team Providers + +------+ + | Care Manager Immunology Name | Role | Phone | + [...] | | [facility] | Carrillo Ayobu MD | initial encounter | | | | CENTER [address] | [address] | (Primary Dx) | | | | [place], [place] | [place], [place] | | | | | [address] | [address] | | | | | [phone] | | | +--------+ + + + [...] + + | Performing | Address | City/State/[facility] [[email or web address] | Phone Number | | Organization | [...]
--- OUTSIDE RECORDS SUMMARY | ~2019-01-30 | XMS | Encounter Summary ---
Demographics + + + | Address | [address] [facility] [address] | | | [place] [address] | + + + | Home Phone | | + + + | Preferred Language | Unknown | + + + | Marital Status | | + + + | Confucianism Affiliation | 1013 | + + + | Race | Unknown | + + + | Ethnic Group | Unknown | + + + Author + + + | Author | [facility] | | | and [place] | + + + | Organization | [facility] | | | and [place] [...] Team Providers + +------+ + | Care Pipe Production Worker Name | Role | Phone | + +------+ + | Teena Busch NP | PCP | | + +------+ + Reason for Visit +--------+ + | Reason | Comments | +--------+ + | Apnea | | +--------+ + Encounter Details +--------+ + + + + | Date | Type | Department | Care Team | Description | +--------+ + + + + | 12/28/ | Telephone | [facility] | Sundeep Ba PA | Apnea | | 2014 | | SLEEP DISORDER [address] | [address] | | | | | [address] [place] | [place] | | | | | [place] [address] | [address] | | | | | [phone] | | | +--------+ + + + [...]
--- OUTSIDE RECORDS SUMMARY | ~2019-01-30 | XMS | Encounter Summary ---
Demographics + + + | Address | [address] [facility] [address] | | | [place] [address] | + + + | Home Phone [...] [facility] | | | and [place] | + + + | Organization | [facility] | | | and [place] [...] Team Providers + +------+ + | Care Sweat Band Sewer Name | Role | Phone | + [...] | occipital | [address] | | | | n | neuralgia | [address] | [place], | | | | | Procedures | [place], | [place] [address] | | | | | AR INJECT | [place] [address] | Phone: | | | | | NERV | Phone: | [phone] | | | | | GREGORIO MILLER | [phone] | Fax: | | | | | OCCIPTL [place] | Fax: | [phone] | | | | | BETAMETHASON | [phone] | | | | | | E [...] | Audiology | Diagnoses | Mohr, | [facility] | | | Services | | Benign | Leonidas [place] MD | Audiology And | | | Required | | paroxysmal | [address] | Hearing Aid | | | | | positional | [address] | Services [address] | | | | | vertigo | [place], | [address] | | | | | Procedures | [place] [address] | [address] | | | | | 8/14 PEND | Phone: | [place], | | | | | [place] | [phone] | [place] [address] | | | | | | Fax: | Phone: | | | | | | [phone] | [phone] | | | | | | | Fax: | | | | | | | [phone] | +--------+ + + + + + Evaluate & Treat (Routine) +--------+ + + + + + | Status | Reason | Specialty | Diagnoses / | Referred By | Referred To | | | | | Procedures | Contact | Contact | +--------+ + + + + + | Closed | Specialty | Otolaryngolog | Diagnoses | Mohr, | [facility] | | | Services | y | Benign | Leonidas E A, MD | Otolaryngolog | | | Required | | paroxysmal | [address] | y [address] | | | | | positional | [address] | [address] [place] | | | | | vertigo | [place], | [address] [place] | | | | | Procedures | [place] [address] | [place], [place] | | | | | [address] PEND | Phone: | [phone] | | | | | [place] | [phone] | Phone: | | | | | | Fax: | [phone] | | | | | | [phone] | Fax: | | | | | | | [phone] | +--------+ + + + + + Reason for Visit + + + | Reason | Comments | + + + | Neck Pain | | + + + Encounter Details +--------+---------+ + + + | Date | Type | Department | Care Team | Description | +--------+---------+ + + + | 10/16/ | Office | [facility] [place] | Leonidas Mohr, | Vertigo (Primary | | 2014 | Visit | PHYSIATRY [address] | [address] | Dx); Bilateral | | | | [place], | [place], [place] | occipital neuralgia; | | | | [place] [address] | [address] | Chronic daily | | | | [phone] | | headache; | | | | | | Cervicalgia; [...] MD - 10/16/2014 2:13 PM PDT [facility] [address] [facility] [id number] OFFICE NOTE LEONIDAS MOHR JR, MD Patient: LUZ MARIA LOCKWOOD Admitting: MR #: [id number] LOC: PT TYPE: Adm Date: 10/16/2014 : [...] Transcribed on 10/16/2014 19:17:28 by hailee job# [id number] Confirmation #: [id number] cc: WICHO STARKEY MD [place] Mohr MD - 10/16/2014 1:33 PM PDTThis office note has been dictated. Job ID# [id number] signed by Leon[place] Mohr MD at 10/16/2014 2:13 PM PDTdocumented in this encounter Plan of Treatment + + +--------+ + + | Name | Type | Priori | Associated Diagnoses | Order Schedule | | | | ty | | | + + +--------+ + + | * [facility] | Outpatient | Routin | Vertigo [...]
--- OUTSIDE RECORDS SUMMARY | ~2019-01-30 | XMS | Encounter Summary ---
Demographics + + + | Address | [address] [facility] [address] | | | [place] [address] | + + + | Home Phone | | + + + | Preferred Language | Unknown | + + + | Marital Status | | + + + | Protestant Affiliation | 1013 | + + + | Race | Unknown | + + + | Ethnic Group | Unknown | + + + Author + + + | Author | [facility] | | | and [place] | + + + | Organization | [facility] | | | and [place] [...] Team Providers + +------+ + | Care Automotive Window Tinter Name | Role | Phone | + [...] + | 02/11/ | Office | [facility] | Sundeep Ba PA | CONSUELO on CPAP (Primary | | 2015 | Visit | SLEEP DISORDER [address] | [address] | Dx) | | | | [address] [place] | [place] | | | | | [place] [address] | [address] | | | | | [phone] | | | +--------+---------+ + + + [...] AirSense 10 with nasal mask obtained from: [employer] in [place] pressure: 9-20 cm Median: 12.4 cm 95%: [...] Exam Assessment: Problem #1: OBSTRUCTIVE SLEEP APNEA ([id number]) She has struggled with wearing her CPAP [...] month, sooner prn. Thirty minutes were spent [id number]-lyua, wit h the majority of time spent in counseling. Sundeep Ba PA-C cc: [place] Busch, WREATH MACHINE TENDER-DARRYN documented in this enco unter Plan of Treatment Not on filedocumented as of this encounter Visit Diagnoses + + | Diagnosis | + + | CONSUELO on CPAP - Primary Obstructive sleep apnea (adult) (pediatric) | + + documented in this encounter
--- OUTSIDE RECORDS SUMMARY | ~2019-01-30 | XMS | Encounter Summary ---
Demographics + + + | Address | [address] [facility] [address] | | | [place] [address] | + + + | Home Phone [...] Author | [facility] | | | and [place] | + + + | Organization | [facility] | | | and [...] Team Providers + +------+ + | Care Pharmacy Sales Assistant Name | Role | Phone | [...] Right hip | [place], | [address] | | | | | pain | Paco Cox MD | [place], | | | | | Procedures | [address] | [place] | | | | | [place] Asp | [place] | [address] | | | | | and/or Inj | [place], [place] | Phone: | | | | | Major Joint | [address] | [phone] | | | | | Right CHG | Phone: | Fax: | | | | | FLUOROSCOPIC | [phone] | [phone] | | | | | GUIDANCE | Fax: | | | | | | NEEDLE | [phone] | | | | | | PLACEMENT | | | | | | | ADD ON CO | | | | | | | [...] Right hip | [place], | [address] | | | | | pain | Paco Cox MD | [place], | | | | | Bursitis of | [address] | [place] | | | | | right hip | [place] | [address] | | | | | Procedures | [place], [place] | Phone: | | | | | [place] | [address] | [phone] | | | | | ARTHROCENTES | Phone: | Fax: | | | | | [place] | [phone] | [phone] | | | | | ASPIR&/INJ | Fax: | | | | | | MAJOR | [phone] | | | | | | JT/BURSA W/O | | | | | | | [place] | | | | | | | [...] + + | 12/26/ | Hospital | [facility] | [place], | Right hip pain | | 2018 | Encounter | MED CTR XRAY [address] | [place]STIANA Kuhn [address] | | | | | [place] | [address], | | | | | [place] [address] | [place] [address] | | | | | [phone] | [phone] | | | | | | | | | | | | Stringing Machine OperatorTono | | +--------+ + + + + [...] + + | Performing | Address | City/State/[facility] | Phone Number | | Organization | [...]
--- OUTSIDE RECORDS SUMMARY | ~2019-01-30 | XMS | Encounter Summary ---
Demographics + + + | Address | [address] [place] [facility] [address] | | | [place] [address] | + + + | Home Phone | | + + + | Preferred Language | Unknown | + + + | Marital Status | | + + + | Rastafarian Affiliation | 1013 | + + + | Race | Unknown | + + + | Ethnic Group | Unknown | + + + Author + + + | Author | [facility] | | | and [place] | + + + | Organization | [facility] | | | and [place] [...] Providers + +------+ + | Care Senior Manager Mergers & Acquisitions Name | Role | Phone | + [...] Right hip | [place], | [address] | | | | | pain | Paco Cox MD | [place], | | | | | Procedures | [address] | [place] | | | | | [place] Asp | [place] | [address] | | | | | and/or Inj | [place], [place] | Phone: | | | | | Major Joint | [address] | [phone] | | | | | Right CHG | Phone: | Fax: | | | | | FLUOROSCOPIC | [phone] | [phone] | | | | | GUIDANCE | Fax: | | | | | | NEEDLE | [phone] | | | | | | PLACEMENT | | | | | | | ADD ON [place] | | | | | | | [...] | (Primary Dx) | | | | [place], | [place], [place] | | | | | [place] [address] | [address] | | | | | [phone] | | | +--------+ + + + [...]
--- OUTSIDE RECORDS SUMMARY | ~2019-01-30 | XMS | Encounter Summary ---
Demographics + + + | Address | [address] [facility] [address] | | | [place] [address] | + + + | Home Phone | | + + + | Preferred Language | Unknown | + + + | Marital Status | | + + + | Baptism Affiliation | 1013 | + + + | Race | Unknown | + + + | Ethnic Group | Unknown | + + + Author + + + | Author | [facility] | | | and [place] | + + + | Organization | [facility] | [...] Team Providers + +------+ + | Care Appliance Technician Name | Role | Phone | [...] + + | 12/06/ | Telephone | [facility] [place] | Katy Huddlestonterrance [place], | Other | | 2014 | | PHYSIATRY [address] | MD [address] | | | | | [place], | [place], [place] | | | | | [place] [address] | [address] | | | | | [phone] | | | +--------+ + + + [...]
--- OUTSIDE RECORDS SUMMARY | ~2019-01-30 | XMS | Encounter Summary ---
Demographics + + + | Address | [address] [address] | | | [place] [address] | + + + | Home Phone [...] | Author | [facility] | | | and [place] | + + + | Organization | [facility] | | [...] Providers + +------+ + | Care Coating And Baking Operator Name | Role | Phone | + +------+ + PCP | Unavailable | + +------+ + Encounter Details +--------+ + + + + | Date | Type | Department | Care Team | Description | +--------+ + + + + | 11/10/ | Hospital | [facility] | Jaxon Singleton MD | Methamphetamine | | 2011 - | Encounter | CONVERSION DEP [address] | [address] | abuse; NSTEMI | | | | [address] | [place] [address] | (non-ST elevated | | 11/11/ | | [place], [place] | [phone] | myocardial | | 2011 | | [address] | | infarction) ([facility]); | | | | [phone] | | Hyponatremia; | | | | | | Bipolar disorder, | | | | | | unspecified ([facility]); | | | | | | Hyposmolality and/or | | | | | | hyponatremia; | | | | | | Leucocytosis; | | | | | | Paranoid | | | | | | schizophrenia, | | | | | | chronic condition | | | | | | ([facility]); Seizure | | | | | | disorder ([facility]) | +--------+ + + + + Social [...] + + documented as of this encounter Discharge Summaries Conversion Transaction, Provider Unknown - 11/12/2011 1:06 PM PDTFormatting of this note m williamt be different from the original. Discharge Summaries by Marli Mejia RN at 11/12/11 7857 Author: Marli Mejia RN Service: (none) Author Type: Registered Nurse Filed: 11/12/11 6556 Date of Service: 11/12/111305 Status: Signed Cardiopulmonary Supervisor: Marli Mejia RN (Registered Nurse) Pt provided with discharge instructions regarding follow up appointments, continued medicat ions, smoking cessation, and when to call the doctor. Pt states understanding of instruction s provided, opportunity for questions provided. Group notified of pt's discharge today. Rhoda Ríos MD - 11/12/2011 12:55 PM PDTFormatting of this note might be different fro m the original. Discharge Summaries by Rhoda Simpson MD at 11/12/11 1250 Author: Rhoda Simpson MD Service: (none) Author Type: Physician Filed: 11/18/11926 Date of Service: 11/12/11 1637 Status: Signed Cardiopulmonary Supervisor: Rhoda Simpson MD (Physician) [facility] Service: Hospitalist Discharge Summary Date of Admission: 11/11/2011 Date of Discharge: 11/12/2011 Discharge Provider: Rhoda Simpson MD Treatment Team: Admitting Provider: Jaxon Singleton MD Discharge Diagnoses: Principal Problem: *Methamphetamine abuse Active Problems: Paranoid schizophrenia, chronic condition Bipolar disorder, unspecified Seizure disorder NSTEMI (non-ST elevated myocardial infarction) Hyposmolality and/or hyponatremia Leucocytosis Resolved Problems: * No resolved hospital problems. * Procedures: * No surgery found * Significant Diagnostic Studies: Nm Myocardial Perfusion Spect (stress And Rest) 11/12/2011 IMPRESSION: 1. No evidence of ischemia with pharmacologic stress. 2. Estimated LVEF is 59 -- 61%. X-ray Chest 1 View 11/11/2011 IMPRESSION: 1. No acute findings in the chest. F HISTORY OF PRESENTATION: Luz Maria Lockwood is a 56 y.o. female with a past medical history of paranoid schizoph candi, bipolar disorder, seizure disorder, diabetes, hypertension, and chronic methamphetami ne use, who was transferred from [facility] after having a seizure. Please refer t o complete H&P by Dr Singleton for further details. 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 Patient reportedly had sei zures and palpitations prior to arrival. She had serial cardiac enzymes done and these were positive but had downward trend. Patient underwent stress testing the next day and this was negative. She was advised not to abuse any drugs and to follow up with PCP. She denied any s uicidal ideation. There were no complications during the hospitalization. Past Medical History Diagnosis Date Disassociation disorder Schizophrenia Seizures Bipolar disorder Suicidal ideation Past Surgical History Procedure Date Appendectomy Back surgery Neck surgery Hysterectomy Tubal ligation Allergies Allergen Reactions Other Other (See Comments) Pt states she is allergic to a psych med which she cannot remember. Prescriptions prior to admission Medication Sig Dispense Refill carvedilol (COREG) 25 MG tablet Take 25 mg by mouth 2 (two) times daily with meals. cetirizine (ZYRTEC) 5 MG tablet Take 5 mg by mouth daily. doxazosin (CARDURA) 1 MG tablet Take 1 mg by mouth nightly. duloxetine (CYMBALTA) 60 MG capsule Take 60 mg by mouth daily. estradiol (ESTRACE) 1 MG tablet Take 1 mg by mouth daily. hydrocodone-acetaminophen (VICODIN) 5-500 MG per tablet Take 1 tablet by mouth every 4 (four) hours as needed. IRON PO Take 300 mg by mouth daily. lamotrigine (LAMICTAL) 200 MG tablet Take 200 mg by mouth 2 (two) times daily. metformin (GLUCOPHAGE) 1000 MG tablet Take 1,000 mg by mouth 2 (two) times daily with m eals. naproxen (NAPROSYN) 375 MG tablet Take 375 mg by mouth 2 (two) times daily with meals. omeprazole (PRILOSEC) 20 MG capsule Take 20 mg by mouth daily. ziprasidone (GEODON) 80 MG capsule Take 80 mg by mouth daily with breakfast. ziprasidone (GEODON) 80 MG capsule Take 160 mg by mouth nightly. DISCHARGE EXAM Vital Signs: BP 120/64 | Pulse 82 | Temp(Src) 97.9 F (36.6 C) (Axillary) | Resp 18 | Ht 1.753 m (5' 9.02") | Wt 109.77 kg (242 lb) | BMI 35.72 kg/m2 | SpO2 98% | ? No Physical Exam Nursing note and vitals reviewed. Constitutional: She is oriented to person, place, and time. She appears well-nourished. No distress. HENT: Head: Normocephalic and atraumatic. Mouth/Throat: No oropharyngeal exudate. Eyes: EOM are normal. Pupils are equal, round, and reactive to light. No scleral icterus. Neck: Normal range of motion. No JVD present. Cardiovascular: Normal rate and regular rhythm. Exam reveals no friction rub. No murmur heard. Pulmonary/Chest: Effort normal and breath sounds normal. No respiratory distress. She has n o wheezes. Abdominal: Soft. Bowel sounds are normal. She exhibits no distension. There is no tendernes s. There is no rebound. Musculoskeletal: Normal range of motion. She exhibits no edema. Neurological: She is alert and oriented to person, place, and time. She displays normal ref lexes. No cranial nerve deficit. Coordination normal. Skin: Skin is warm. No erythema. DATA CBC: Lab Results Component Value Date WBC 5.8 11/12/2011 RBC 3.07* 11/12/2011 HGB 9.6* 11/12/2011 HCT 28.2* 11/12/2011 MCV 91.8 11/12/2011 MCH 31.2 11/12/2011 MCHC 34.0 11/12/2011 RDW 42.9 11/12/2011 PLT 248 11/12/2011 MPV 7.5 11/12/2011 DIFFTYPE AUTOMATED 11/12/2011 CMP: Lab Results Component Value Date NA 143 11/12/2011 K 4.8 11/12/2011 CL 109 11/12/2011 CO2 28 11/12/2011 ANIONGAP 11 11/12/2011 GLUF 89 11/12/2011 BUN 6* 11/12/2011 CREATININE 0.65 11/12/2011 BCR 9 11/12/2011 CA 8.4* 11/12/2011 PROT 5.8* 11/12/2011 ALB 2.8* 11/12/2011 GLOB 3.0 11/12/2011 BILITOT 0.2 11/12/2011 ALP 20* 11/12/2011 AST 24 11/12/2011 ALT 20 11/12/2011 EGFR >60 11/12/2011 PLAN D/C to prison. Disposition: [facility] Condition: Stable Code Status: Full Code Discharge Instructions Diet cardiac Diet diabetic Activity as tolerated Call MD for: temperature >100.4 Call MD for: persistant nausea and vomiting Follow up: PCP Make an appointment in 2 weeks Psychiatrist Make an appointment in 1 week Current Discharge Medication List CONTINUE these medications which have NOT CHANGED Details carvedilol (COREG) 25 MG tablet Take 25 mg by mouth 2 (two) times daily with meals. cetirizine (ZYRTEC) 5 MG tablet Take 5 mg by mouth daily. doxazosin (CARDURA) 1 MG tablet Take 1 mg by mouth nightly. duloxetine (CYMBALTA) 60 MG capsule Take 60 mg by mouth daily. estradiol (ESTRACE) 1 MG tablet Take 1 mg by mouth daily. hydrocodone-acetaminophen (VICODIN) 5-500 MG per tablet Take 1 tablet by mouth every 4 (fou r) hours as needed. IRON PO Take 300 mg by mouth daily. lamotrigine (LAMICTAL) 200 MG tablet Take 200 mg by mouth 2 (two) times daily. metformin (GLUCOPHAGE) 1000 MG tablet Take 1,000 mg by mouth 2 (two) times daily with meals . naproxen (NAPROSYN) 375 MG tablet Take 375 mg by mouth 2 (two) times daily with meals. omeprazole (PRILOSEC) 20 MG capsule Take 20 mg by mouth daily. !! ziprasidone (GEODON) 80 MG capsule Take 80 mg by mouth daily with breakfast. !! ziprasidone (GEODON) 80 MG capsule Take 160 mg by mouth nightly. !! - Potential duplicate medications found. Please discuss with provider. Discharge took 35 minutes, to include final examination, discussion of admission, and prepa ration of prescriptions, instructions for on-going care, follow-up and documentation of disc harge summary. Rhoda Simpson MD 11/12/2011 documentbeth min in this encounter Medications at Time of [...] documented as of this encounter Progress Notes Conversion Transaction, Provider Unknown - 11/12/2011 1:40 PM PDTFormatting of this note m ight be different from the original. Progress Notes by Marli Mejia RN at 11/12/11 1340 Author: Marli Mejia RN Service: (none) Author Type: Registered Nurse Filed: 11/12/11 1342 Date of Service: 11/12/11 1340 Status: Signed Cardiopulmonary Supervisor: Marli Mejia RN (Registered Nurse) Security brought pt belongings up to pt. [facility] called and they have her set of keys. P t notified. oster Harriett MSW - 11/12/2011 1:01 PM PDT Progress Notes by BERNARD Hugo at 11/12/11 1301 Author: BERNARD Hugo Service: (none) Author Type: Shell Grader Filed: 11/12/11 1302 Date of Service: 11/12/11 1301 Status: Signed Cardiopulmonary Supervisor: BERNARD Hugo (Shell Grader) Patient reports she lives in a prison, has [place] medicaid for transportation. Pt disc harging back to prison this afternoon. CM called [facility] transportation to [facility], provided pt room # address and this CM's contact number. [employer] stated they would send transport as soon as they could find someone. CM alerted RN of dcp approxim ate time. No other anticipated dc needs at this time. onversion Transact ion, Provider Unknown - 11/12/2011 9:57 AM PDTFormatting of this note might be different fr om the original. Progress Notes by Melissa Estrella at 11/12/11956 Author: Melissa Estrella Service: (none) Author Type: Vocal Music Teacher Filed: 11/12/11958 Date of Service: 11/12/11956 Status: Signed Cardiopulmonary Supervisor: Melissa Estrella (Vocal Music Teacher) Pt didn't remember requesting a visit. Wanted prayer for her health. Shared she has difficu lty forgiving herself. Wants additional set painter visits while she is in the hospital. [place] Transaction, Provider Unknown - 11/11/2011 4:26 AM PDT Progress Notes by Gelacio Bhandari RPH at 11/11/11425 Author: Gelacio Bhandari RPH Service: (none) Author Type: Pharmacist Filed: 11/11/11425 Date of Service: 11/11/11425 Status: Signed Cardiopulmonary Supervisor: Gelacio Bhandari RPH (Pharmacist) Note ccl 115ml/min meds reviewed Pharmacy will follow rdc 0426 docume nted in this encounter Plan of Treatment Not on filedocumented as of this encounter Procedures + +--------+ + + + | Procedure Name | Priori | Date/Time | Associated Diagnosis | Comments | | | ty | | | | + +--------+ + + + | NM MYOCARDIAL | Routin | 11/12/2011 | | Results for this | | PERFUSION MULT SPECT | e | 9:59 AM | | procedure are in the | | | | PDT | | results section. | + +--------+ + + + | NM NUCLEAR STRESS | Routin | 11/12/2011 | | Results for this | | TEST (EXERCISE) | e | 9:04 AM | | procedure are in the | | | | PDT | | results section. | + +--------+ + + + | XR CHEST 1 VIEW | Routin | 11/11/2011 | | Results for this | | | e | 5:50 AM | | procedure are in the | | | | PDT | | results section. | + +--------+ + + + documented in this encounter Results GA Myocardial Perfusion Mult SPECT (11/12/2011 9:59 AM PDT) + + | Specimen | + + | | + + + + + | Narrative | Performed At | + + + | [facility] MYOCARDIAL PERFUSION SPECT - STRESS AND REST | | | 11/12/2011 7:36 AM HISTORY: Elevated troponin. Multiple risk | | | factors for heart disease. Dizziness and hypertension. | | | TECHNIQUE: The patient was given pharmacologic stress with LexiScan | | | under the direction of the mid-level provider. At peak stress they | | | were given 45 mCi of technetium 99m Myoview IV and that was followed | | | by cardiac SPECT imaging. Prior to the stress test a resting | | | cardiac SPECT study was performed following the IV ministration of | | | 10.6 mCi of technetium 99m Myoview. FINDINGS: No prior cardiac | | | SPECT studies available for comparison. The estimated left | | | ventricular ejection fraction is 59% at rest and 61% with stress. | | | There is uniform uptake throughout the LV myocardium without | | | definite fixed or reversible defect. IMPRESSION: 1. No evidence | | | of ischemia with pharmacologic stress. 2. Estimated LVEF is 59 -- | | | 61%. | | | 10:25 AM | | + + + + -+ | Procedure Note | + -+ | Ever Almazan Conversion - 11/04/2018 6:12 AM [facility] MYOCARDIAL | | PERFUSION SPECT - STRESS AND REST11/12/2011 7:36 AM HISTORY:Elevated troponin. Multiple | | risk factors for heart disease. Dizziness and hypertension. TECHNIQUE:The patient was | | given pharmacologic stress with LexiScan under the direction of the mid-level provider. | | At peak stress they were given 45 mCi of technetium 99m Myoview IV and that was | | followed by cardiac SPECT imaging. Prior to the stress test a resting cardiac SPECT | | study was performed following the IV ministration of 10.6 mCi of technetium 99m Myoview. | | FINDINGS:No prior cardiac SPECT studies available for comparison. The estimated left | | ventricular ejection fraction is 59% at rest and 61% with stress. There is uniform | | uptake throughout the LV myocardium without definite fixed or reversible defect. | | IMPRESSION:1. No evidence of ischemia with pharmacologic stress.2. Estimated LVEF is | | 59 -- 61%. | |No prior cardiac SPECT studies available for comparison. | | | |The estimated left ventricular ejection fraction is 59% at rest and 61% with stress. There is uniform uptake throughout the LV myocardium without definite fixed or reversible defect. | | | |IMPRESSION: | |1. No evidence of ischemia with pharmacologic stress. | |2. Estimated LVEF is 59 -- 61%. | | | | | + -+ NM Nuclear Stress Test (Exercise) (11/12/2011 9:04 AM PDT) + + | Specimen | + + | | + + + + + | Narrative | Performed At | + + + | This procedure was resulted in [facility] (the cardiology system). Please | | | see the Media tab in Chart Review to see the result for this | | | procedure. | | + + + + + | Procedure Note | + + | Ever Almazan Conversion - 11/04/2018 6:12 AM PDT This procedure was resulted in [facility] | | (the cardiology system). Please seethe Media tab in Chart Review to see the result for | | this procedure. | + + XR Chest 1 Vw (11/11/2011 5:50 AM PDT) + + | Specimen | + + | | + + + + + | Narrative | Performed At | + + + | [facility] XR CHEST 1 VIEW 11/11/2011 5:40 AM HISTORY: | | | Presumed cough and concern for pneumonia. TECHNIQUE: One view | | | chest. FINDINGS: No comparison. The heart is normal in size. | | | No acute infiltrates or evidence of edema. No pneumothorax or | | | pleural effusion. IMPRESSION: 1. No acute findings in the | | | chest. Electronically signed by Rao Ernandez MD on | | | 11/11/2011 7:52 AM | | + + + + + | Procedure Note | + + | Tha, Rad Conversion - 11/04/2018 6:12 AM PDT [facility] CHEST 1 | | VIEW11/11/2011 5:40 AM HISTORY:Presumed cough and concern for pneumonia. TECHNIQUE:One | | view chest. FINDINGS:No comparison. The heart is normal in size. No acute infiltrates | | or evidence of edema. No pneumothorax or pleural effusion. IMPRESSION:1. No acute | | findings in the chest. | | 7:52 AM | | | |TECHNIQUE: | |One view chest. | | | |FINDINGS: | |No comparison. The heart is normal in size. No acute infiltrates or evidence of edema. N o pneumothorax or pleural effusion. | | | |IMPRESSION: | |1. No acute findings in the chest. | | | | | + + documented in this encounter Visit Diagnoses + + | Diagnosis | + + | Methamphetamine abuse (HCC) Nondependent amphetamine or related acting | | sympathomimetic abuse, unspecified | + + | NSTEMI (non-ST elevated myocardial infarction) (HCC) Acute myocardial infarction, | | subendocardial infarction, episode of care unspecified | + + | Hyponatremia Hyposmolality and/or hyponatremia | + + | Bipolar disorder, unspecified (HCC) Bipolar disorder, unspecified | + + | Hyposmolality and/or hyponatremia | + + | Leucocytosis Leukocytosis, unspecified | + + | Paranoid schizophrenia, chronic condition (HCC) Paranoid schizophrenia, chronic | | condition | + + | Seizure disorder (HCC) Unspecified epilepsy without mention of intractable epilepsy | + + documented in this encounter
--- OUTSIDE RECORDS SUMMARY | ~2019-01-30 | XMS | Encounter Summary ---
Demographics + + + | Address | [address] | | | [place] [address] | + + + | Home Phone | | + + + | Preferred Language | Unknown | + + + | Marital Status | | + + + | Episcopalian Affiliation | 1013 | + + + | Race | Unknown | + + + | Ethnic Group | Unknown | + + + Author + + + | Author | [facility] | | | and [place] | + + + | Organization | [facility] | [...] Team Providers + +------+ + | Care Plant Safety Engineer Name | Role | Phone | [...] + + | 09/24/ | Telephone | [facility] [place] | Katy Hudd[place], | Other | | 2014 | | PHYSIATRY [address] | MD [address] | | | | | [place], | [place], [place] | | | | | [place] [address] | [address] | | | | | [phone] | | | +--------+ + + + [...]
--- OUTSIDE RECORDS SUMMARY | ~2019-01-30 | XMS | Encounter Summary ---
Demographics + + + | Address | [address] [facility] [address] | | | [place] [address] | + + + | Home Phone | | + + + | Preferred Language | Unknown | + + + | Marital Status | | + + + | Mu-Ism Affiliation | 1013 | + + + | Race | Unknown | + + + | Ethnic Group | Unknown | + + + Author + + + | Author | [facility] | | | and [place] | + + + | Organization | [facility] | | | and [place] | [...] Team Providers + +------+ + | Care Utility Porter Name | Role | Phone | + [...] Description | +--------+---------+ + + + | 01/31/ | Office | [facility] [place] [facility] | Sundeep Ba PA | CONSUELO on CPAP (Primary | | 2018 | Visit | SLEEP DISORDER [address] | [address] | Dx) | | | | [address] [place] | [place] | | | | | [place] [address] | [address] | | | | | [phone] | | | +--------+---------+ + + + [...] + + + | Blood Pressure | 126/70 | 01/31/2018 10:43 AM | | | | | PST | | + + + + + | Pulse | 85 | 01/31/2018 10:43 AM | | | | | PST | | + + + + + | Temperature | - | - | | + + + + + | Respiratory Rate | 20 | 01/31/2018 10:43 AM | | | | | PST | | + + + + + | Oxygen Saturation | 98% | 01/31/2018 10:43 AM | | | | | PST | | + + + + + | Inhaled Oxygen | - | - | | | Concentration | | | | + + + + + | Weight | 117.4 kg (258 lb | 01/31/2018 10:43 AM | | | | 14.9 oz) | PST | | + + + + + | Height | - | - | | + + + + + | Body Mass Index | 39.37 | 10/17/2017 8:39 AM | | | | | PDT | | + + + + + documented in this encounter Progress Notes Sundeep Ba PA - 01/31/2018 11:00 AM PST Subjective: Patient ID: Luz Maria Carmona is a 62 y.o. female. HPI last office visit was: 07/28/2017 date of split-night polysomnography: 12/03/2014 AHI: 62.1 RDI: 69.2 O2%: 74% with 27.0 minutes below 88% Machine type: ResMed AirSense 10 with nasal mask obtained from: [employer] in [place] pressure: 9-20 cm (lowered to 4-8 cm for comfort) Median: 6.7 cm 95%: 7.9 cm maximum: 7.9 cm Nights using CPAP: 74/122 % of nights >4 hours: 47% average usage (all nights): 3:01 average usage (nights used): 4:59 AHI: 1.2 "Alma Rosa" comes in for CPAP compliance. She does well with her CPAP when she wears it, but has struggled with her consistency. She was not wearing her CPAP at all prior to her last v isit. She improved her usage after that visit, but has not used it during the last two [place] hs. She says her machine would not turn on. She did not contact our office or [facility] in [place]. She thinks her power cord may have come disconnected from the outlet, but she did not check. We discussed the importance of finding a solution (or asking for help) whenever something is not allowing her to use her CPAP. Her machine worked fine in our offi ce today. We discussed the importance of wearing her CPAP 100% of the time she is asleep in order to develop it into a regular part of her sleep routine. She understands that she has severe apnea and the importance of treating her apnea because of the associated health risks. She is motivated to do well with her CPAP because she wants to stay healthy for her grandchildren and recent great-grandchild. I have discussed the download in detail. This shows that her sleep apnea is controlled, wi th an AHI of 1.2. It also shows that her leaks are controlled. BP 126/70 | Pulse 85 | Resp 20 | Wt 117.4 kg (258 lb 14.9 oz) | SpO2 98% | BMI 39.37 k g/m Review of Systems Objective: Physical Exam Assessment: Problem #1: OBSTRUCTIVE SLEEP APNEA ([id number]) This is controlled with CPAP. She improved her usage with her CPAP, but is still inconsist ent with it. Plan: 1. She is to continue with CPAP indefinitely. 2. She is to work toward wearing her CPAP 100% of the time she is asleep. I will follow up again in 2 months, sooner prn. Fifteen minutes were spent [id number], w ith the majority of time spent [...]
--- OUTSIDE RECORDS SUMMARY | ~2019-01-30 | XMS | Encounter Summary ---
Demographics + + + | Address | [address] [facility] [address] | | | [place] [address] | + + + | Home Phone [...] | Author | [facility] | | | and [place] | + + + | Organization | [facility] | | | and [...] Team Providers + +------+ + | Care Tester Compressed Gases Name | Role | Phone | + [...] PHYSIATRY [address] | MD [address] | headache; | | | | [place], | [place], [place] | Fibromyalgia | | | | [place] [address] | [address] | | | | | [phone] | | | +--------+ + + + [...]
--- OUTSIDE RECORDS SUMMARY | ~2019-01-30 | XMS | Encounter Summary ---
Demographics + + + | Address | [address] [facility] [address] | | | [place] [address] | + + + | Home Phone | | + + + | Preferred Language | Unknown | + + + | Marital Status | | + + + | Judaism Affiliation | 1013 | + + + | Race | Unknown | + + + | Ethnic Group | Unknown | + + + Author + + + | Author | and [facility] | | | and [place] | + + + | Organization | and [facility] | | | and [...] Team Providers + +------+ + | Care Respiratory Therapy Instructor Name | Role | Phone | + +------+ + | Teena Busch NP | PCP | | + +------+ + Reason for Visit + + + | Reason | Comments | + + + | Medication Refill | | | Assistance | | + + + Encounter Details +--------+ + + + + | Date | Type | Department | Care Team | Description | +--------+ + + + + | 09/23/ | Telephone | [facility] [place] | Leonidas Huddleston, | Medication Refill | | 2016 | | PHYSIATRY [address] | MD [address] | Assistance | | | | [place], | [place], [place] | | | | | [place] [address] | [address] | | | | | [phone] | | | +--------+ + + + [...]
--- OUTSIDE RECORDS SUMMARY | ~2019-01-30 | XMS | Encounter Summary ---
Demographics + + + | Address | [address] [facility] [address] | | | [place] [address] | + + + | Home Phone [...] Author | [facility] | | | and [place] | + + + | Organization | [facility] | | | and [place] [...] Team Providers + +------+ + | Care Therapeutic Massage Technician Name | Role | Phone | [...] | | | | | positional | [address] | [address] [place] | | | | | vertigo | [place], | [address] [place] | | | | | Procedures | [place] [address] | [place], [place] | | | | | 10/25 PEND | Phone: | [phone] | | | | | [place] | [phone] | Phone: | | | | | | Fax: | [phone] | | | | | | [phone] | Fax: | | | | | | | [phone] | +--------+ + + + + + Encounter Details +--------+---------+ + + + | Date | Type | Department | Care Team | Description | +--------+---------+ + + + | 11/27/ | Office | [facility] | Leonidas Mohr, | BPPV (benign | | 2014 | Visit | OTOLARYNGOLOGY [address] | MD [address] | paroxysmal | | | | [address] [place] [address] | [place] | positional vertigo), | | | | [place], [place] | [phone] | bilateral (Primary | | | | [address] | | Dx); Sensorineural | | | | [phone] | Leonidas Mohr MD | hearing loss, | | | | | [address] [place] | bilateral | | | | | [address] [facility] [place] | | | | | | [address] | | | | | | | [...] MD - 11/27/2014 2:23 PM PDT [facility] [place] OTOLARYNGOLOGY [address] [facility] [address] OFFICE NOTE LEONIDAS MOHR MD Patient: LUZ MARIA LOCKWOOD Admitting: MR #: [id number] LOC: PT TYPE: Adm Date: 11/27/2014 : [...] 11/27/2014 14:23:51 Transcribed on 11/27/2014 14:43:01 by job# [id number] Confirmation #: [id number] cc: EPI STARKEY MD [facility], Leonidas Campos MD - 11/27/2014 2:19 PM PDTSee dictation #[id number] signed by Leonidas Mohr MD at 11/27/2014 [...]
--- OUTSIDE RECORDS SUMMARY | ~2019-01-30 | XMS | Encounter Summary ---
Demographics + + + | Address | [address] [facility] | | | [place] [address] | + + + | Home Phone [...] | [facility] | | | and [place] | + + + | Organization | [facility] | | | and [place] | [...] Team Providers + +------+ + | Care Eligibility Supervisor Name | Role | Phone | [...] + | 02/11/ | Office | [facility] | Sundeep Ba PA | CONSUELO on CPAP (Primary | | 2015 | Visit | SLEEP DISORDER [address] | [address] | Dx) | | | | [address] [place] | [place] | | | | | [place] [address] | [address] | | | | | [phone] | | | +--------+---------+ + + + [...] AirSense 10 with nasal mask obtained from: [employer] in [place] pressure: 9-20 cm Median: 12.4 cm 95%: [...] Exam Assessment: Problem #1: OBSTRUCTIVE SLEEP APNEA (CXR31-E49.33) She has struggled with wearing her CPAP [...] month, sooner prn. Thirty minutes were spent [id number], wit h the majority of time spent in counseling. Sundeep Ba PA-C cc: Teena Busch, LEVEL VIAL SETTER-DARRYN documented in this enco unter Plan of Treatment Not on filedocumented as of this encounter Visit Diagnoses + + | Diagnosis | + + | CONSUELO on CPAP - Primary Obstructive sleep apnea (adult) (pediatric) | + + documented in this encounter
--- OUTSIDE RECORDS SUMMARY | ~2019-01-30 | XMS | Encounter Summary ---
Demographics + + + | Address | [address] [facility] [address] | | | [place] [address] | + + + | Home Phone [...] Author | [facility] | | | and [place] | + + + | Organization | [facility] [...] Providers + +------+ + | Care Power Plant Technician Name | Role | Phone | + +------+ + | Abimael Devlin MD | PCP | | + +------+ + Encounter Details +--------+ + + + + | Date | Type | Department | Care Team | Description | +--------+ + + + + | 06/07/ | [facility] | [facility] | Andre Caballero | Chronic pain of both | | 2019 | Encounter | MED CTR Y[place]MIN Serrato MD [address] | knees | | | | [address] [place] | [place] | | | | | [place] | [address] | | | | | [address] | | | | | | [phone] | | | +--------+ + + + [...] capsule by mouth | | 0 | /10/31 | | | (CYMBALTA) 60 MG | [...] + + +---------+ + + | ibuprofen | take 1 tablet by | | 0 | 05/23/19 | | | (ADVIL,MOTRIN) 800 | mouth three times a | | | 19 | | | MG tablet | day for 10 days | | | | | + + [...] for this | | | e | 4:21 PM | both knees | procedure are in the | | | | PDT | | results section. | + +--------+ + + + | XR KNEE LEFT 1 - 2 | Routin | 06/07/2018 | Chronic pain of | Results for this | | VW | e | 4:21 PM | both knees | procedure are in the | | | | PDT | | results section. | + +--------+ + + + documented in this encounter Results XR Knee Left 1 [...] + | Chronic pain of both knees | + + documented in this encounter"
--- OUTSIDE RECORDS SUMMARY | ~2019-01-30 | XMS | Encounter Summary ---
Demographics + + + | Address | [address] [facility] | | | [place] [address] | + + + | Home Phone | | + + + | Preferred Language | Unknown | + + + | Marital Status | | + + + | Roman Catholic Affiliation | 1013 | + + + | Race | Unknown | + + + | Ethnic Group | Unknown | + + + Author + + + | Author | [facility] | | | and [place] | + + + | Organization | [facility] | | | and [...] Team Providers + +------+ + | Care Computer Typesetter Keyliner Name | Role | Phone | + +------+ + | Abimael Devlni MD | PCP | | + +------+ + Reason for Visit +--------+ + | Reason | Comments | +--------+ + | Other | | +--------+ + Encounter Details +--------+ + + + + | Date | Type | Department | Care Team | Description | +--------+ + + + + | 10/ | Telephone | [facility] | Katy Huddlestonterrance [place], | Other | | 2015 | | PHYSIATRY [address] | MD [address] | | | | | [place], | [place], [place] | | | | | [place] [address] | [address] | | | | | [phone] | | | +--------+ + + + [...]
--- OUTSIDE RECORDS SUMMARY | ~2019-01-30 | XMS | Encounter Summary ---
Demographics + + + | Address | [address] [facility] [address] | | | [place] [address] | + + + | Home Phone [...] | Author | [facility] | | | and [place] | + + + | Organization | [facility] | | | and [...] Providers + +------+ + | Care Fire Investigation Manager Name | Role | Phone | [...] | | | | | Snoring | [address] | [address] | | | | | Apnea | [place], | [place], | | | | | | [place] [address] | [place] [address] | | | | | | Phone: | Phone: | | | | | | [phone] | [phone] | | | | | | Fax: | Fax: | | | | | | [phone] | [phone] | +--------+ + + + + + [...] | | | | | cervical | [address] | | | | | | region | [place], | | | | | | Cervical | [place] [address] | | | | | | spondylosis | Phone: | | | | | | Cervicalgia | [phone] | | | | | | Status | Fax: | | | | | | post | [phone] | | | | | | cervical [...] Physical | Diagnoses | Lal[place], | Leonidas Morh | | | | Medicine and | Neck pain | [place] | Alicia [place] MD [address] | | | | Rehabilitatio | | MD Erasmo | [address] | | | | n | | [address] | [place], | | | | | | [place] | [place] [address] | | | | | | [place], [place] | Phone: | | | | | | [address] | [phone] | | | | | | Phone: | Fax: | | | | | | [phone] | [phone] | | | | | | Fax: | | | | | | | [phone] | | +--------+--------+ + + + + Encounter Details +--------+---------+ + + + | Date | Type | Department | Care Team | Description | +--------+---------+ + + + | 08/21/ | Office | [facility] [place] | Leonidas Mohr, | Cervicalgia (Primary | | 2014 | Visit | PHYSIATRY [address] | [address] | Dx); Cervical | | | | [place], | [place] | spondylosis; | | | | [place] [address] | [address] | Cervical spinal | | | | [phone] | | stenosis; Status | | | [...] physical therapy within one week, please contact [facility]. Once you have completed physical [...] MD - 08/21/2014 5:21 PM PDT [facility] PHYSIATRY [address] [facility] [address] OFFICE NOTE LEONIDAS MOHR JR, MD Patient: LUZ MARIA LOCKWOOD Admitting: MR #: [id number] LOC: PT TYPE: Adm Date: 08/21/2014 : [...] triceps, wrist dorsiflexion, finger abduction and hand data entry representative; 4+/5 hip flexion, knee flexion, knee extension, [...] 17:21:09 Transcribed on 08/22/2014 01:15:33 by job# [id number] Confirmation #: [id number] cc: WICHO STARKEY MD Leonidas Mohr MD - 08/21/2014 1:53 PM PDTThis office note has been dictated. Job ID# [id number] signed by Leonidas Mohr MD at 08/21/2014 [...]
--- OUTSIDE RECORDS SUMMARY | ~2019-01-30 | XMS | Encounter Summary ---
Demographics + + + | Address | [address] [facility] | | | [place] [address] | + + + | Home Phone [...] + | Author | [facility] | | | and [place] | + + + | Organization | [facility] | | | and [...] Team Providers + +------+ + | Care Collet Driller Name | Role | Phone | + [...] + + | 09/24/ | Telephone | [facility] [place] | Katy Huddlestonterrance [place], | Other | | 2014 | | PHYSIATRY [address] | MD [address] | | | | | [place], | [place], [place] | | | | | [place] [address] | [address] | | | | | [phone] | | | +--------+ + + + [...]
--- OUTSIDE RECORDS SUMMARY | ~2019-01-30 | XMS | Encounter Summary ---
Demographics + + + | Address | [address] [facility] | | | [place] [address] | + + + | Home Phone [...] Author | [facility] | | | and [place] | + + + | Organization | [facility] | | | and [place] [...] Team Providers + +------+ + | Care Technical Director Name | Role | Phone | [...] PHYSIATRY [address] | MD [address] | Assistance | | | | [place], | [place], [place] | | | | | [place] [address] | [address] | | | | | [phone] | | | +--------+ + + + [...]
--- OUTSIDE RECORDS SUMMARY | ~2019-01-30 | XMS | Encounter Summary ---
Demographics + + + | Address | [address] [facility] [address] | | | [place] [address] | + + + | Home Phone [...] Author | [facility] | | | and [place] | + + + | Organization | [facility] | [...] Team Providers + +------+ + | Care Dope Firer Name | Role | Phone | + [...] [address] | [address] | [facility] | | | | [place] | [place] | | | | | [place], [place] | [address] | | | | | [address] | [phone] | | | | | [phone] | | | +--------+ + + + [...]
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
--- OUTSIDE RECORDS SUMMARY | ~2019-01-30 | XMS | Encounter Summary ---
Demographics + + + | Address | [address] [facility] | | | [place] [address] | + + + | Home Phone [...] + | Author | [facility] | | | and [place] | + + + | Organization | [facility] | | | and [...] Providers + +------+ + | Care Technical Programs Manager Name | Role | Phone | + +------+ + | Abimael Devlin MD | PCP | | + +------+ + Reason for Visit +--------+ + | Reason | Comments | +--------+ + | Other | dizzy and side pain | +--------+ + Encounter Details +--------+ + + + + | Date | Type | Department | Care Team | Description | +--------+ + + + + | 10/15/ | Telephone | [facility] [place] | Patrick England MD | Other (dizzy and | | 2016 | | GASTROENTEROLOGY | [address], [place] | side pain) | | | | [address] [place] | [address] [place], [place] | | | | | [address] [place], [place] | [address] | | | | | [address] | | | | | | [phone] | | | +--------+ + + + [...]
--- OUTSIDE RECORDS SUMMARY | ~2019-01-30 | XMS | Encounter Summary ---
Demographics + + + | Address | [address] [facility] | | | [place] [address] | + + + | Home Phone | | + + + | Preferred Language | Unknown | + + + | Marital Status | | + + + | Sikh Affiliation | 1013 | + + + | Race | Unknown | + + + | Ethnic Group | Unknown | + + + Author + + + | Author | [facility] | | | and [place] | + + + | Organization | [facility] | | | and [place] | [...] Team Providers + +------+ + | Care Disposal Plant Operator Name | Role | Phone [...] + | 03/27/ | Emergency | [facility] | Rj Leung MD | Sciatica, | | 2019 | | [facility] | [address] | unspecified | | | | CENTER [address] | [place] | laterality (Primary | | | | [place] | [address] | Dx) | | | | [address] | | | | | | [phone] | | | +--------+ + + + [...] + | HYDROmorphone (DILAUDID) | Given | 01/14/20 | 2 mg | | Ventrogl | | injection 2 mg 2 mg, | | 19 1:42 | | | uteal-Le | | Intramuscular, ONCE, Tue03/27/18 | | PM PST | | | [...] | | | uteal-Ri | | ONCE, Tue03/27/18 at 1320, For 1 | | PM PST | | | ght | | dose | | | | | | + +-------+ +-------+---+ + +---+---+ | | | +---+---+ documented in this encounter
--- OUTSIDE RECORDS SUMMARY | ~2019-01-30 | XMS | Encounter Summary ---
Demographics + + + | Address | [address] [facility] | | | [place] [address] | + + + | Home Phone | | + + + | Preferred Language | Unknown | + + + | Marital Status | | + + + | Cheondoism Affiliation | 1013 | + + + | Race | Unknown | + + + | Ethnic Group | Unknown | + + + Author + + + | Author | [facility] | | | and [place] | + + + | Organization | [facility] | | | and [...] Team Providers + +------+ + | Care Vocational Rehabilitation Administrator Name | Role | Phone | [...] | | | | CENTER [address] | [place] | laterality (Primary | | | | [place] | [address] | Dx) | | | | [address] | | | | | | [phone] | | | +--------+ + + + [...]
--- OUTSIDE RECORDS SUMMARY | ~2019-01-30 | XMS | Encounter Summary ---
Demographics + + + | Address | [address] [facility] | | | [place] [address] | + + + | Home Phone | | + + + | Preferred Language | Unknown | + + + | Marital Status | | + + + | Orthodox Affiliation | 1013 | + + + | Race | Unknown | + + + | Ethnic Group | Unknown | + + + Author + + + | Author | [facility] | | | and [place] | + + + | Organization | [facility] | [...] Providers + +------+ + | Care Retail Account Representative Name | Role | Phone | [...] | SLEEP DISORDER [address] | [address] | Dx) | | | | [address] [place] | [place] | | | | | [place] [address] | [address] | | | | | [phone] | | | +--------+---------+ + + + [...] AirSense 10 Mask type: nasal mask DME: [employer] in [place] pressure: 9-20 cm (lowered to 4-8 cm [...] Exam Assessment: Problem #1: OBSTRUCTIVE SLEEP APNEA ([id number]-W81.33) This is controlled with CPAP. She improved her usage with her CPAP, but is still inconsist ent with it. Plan: 1. She is to continue with CPAP indefinitely. 2. She is to work toward wearing her CPAP 100% of the time she is asleep. I will follow up again in 2 months, sooner prn. Fifteen minutes were spent [id number], w ith the majority of time spent [...]
--- OUTSIDE RECORDS SUMMARY | ~2019-01-30 | XMS | Encounter Summary ---
Demographics + + + | Address | [address] [facility] | | | [place] [address] | + + + | Home Phone [...] | Author | [facility] | | | and [place] | + + + | Organization | [facility] | | [...] Team Providers + +------+ + | Care Administrative Tech Name | Role | Phone | + [...] | | | [address] [facility] | | | | | | [address] [place] | | | | | | [address] | | | | | | [phone] | | | +--------+ + + + [...]
--- OUTSIDE RECORDS SUMMARY | ~2019-01-30 | XMS | Encounter Summary ---
Demographics + + + | Address | [address] [facility] | | | [place] [address] | + + + | Home Phone [...] + | Author | [facility] | | | and [place] | + + + | Organization | [facility] | | | and [...] Team Providers + +------+ + | Care Etiologist Name | Role | Phone | + [...] | Sensorineura | [address] | [place] | | | | | l hearing | [address] [place] | [place], | | | | | loss, | [place] | [place] [address] | | | | | bilateral | [place], [place] | Phone: | | | | | Benign | [address] | [phone] | | | | | paroxysmal | Phone: | Fax: | | | | | positional | [phone] | [phone] | | | | | vertigo | Fax: | | | | | | [phone] | [phone] | | | | | | (ICD-9-CM) [...] OTOLARYNGOLOGY [address] | [address] [place] | positional vertigo, | | | | [address] | [address] [place], | unspecified | | | | [place], [place] | [place] [address] | laterality (Primary | | | | [address] | [phone] | Dx); Sensorineural | | | | [phone] | | hearing loss, | | | [...]
--- OUTSIDE RECORDS SUMMARY | ~2019-01-30 | XMS | Encounter Summary ---
Demographics + + + | Address | [address] [facility] | | | [place] [address] | + + + | Home Phone [...] + | Author | [facility] | | | and [place] | + + + | Organization | [facility] [...] Team Providers + +------+ + | Care Breakdown Person Name | Role | Phone | + [...] + | 02/11/ | Office | [facility] | Sundeep Ba PA | CONSUELO on CPAP (Primary | | 2015 | Visit | SLEEP DISORDER [address] | [address] | Dx) | | | | [address] [place] | [place] | | | | | [place] [address] | [address] | | | | | [phone] | | | +--------+---------+ + + + [...] PM PST Subjective: Patient ID: Luz Maria Carmoan is a 59 y.o. female. HPI last office visit was: 01/28/2015 date of split-night polysomnography: 12/03/2014 AHI: 62.1 RDI: 69.2 O2%: 74% with 27.0 minutes below 88% Machine type: ResMed AirSense 10 with nasal mask obtained from: [employer] in [place] pressure: 9-20 cm Median: 12.4 cm 95%: [...] Exam Assessment: Problem #1: OBSTRUCTIVE SLEEP APNEA ([id number]) She has struggled with wearing her CPAP [...] month, sooner prn. Thirty minutes were spent [id number]-er-stbu, wit h the majority of time spent in counseling. Sundeep Ba PA-C cc: Teena Busch, CONSULTING ENGINEER-DARRYN documented in this enco unter Plan of Treatment Not on filedocumented as of this encounter Visit Diagnoses + + | Diagnosis | + + | CONSUELO on CPAP - Primary Obstructive sleep apnea (adult) (pediatric) | + + documented in this encounter
--- OUTSIDE RECORDS SUMMARY | ~2019-01-30 | XMS | Encounter Summary ---
Demographics + + + | Address | [address] [address] [facility] [address] [facility] | | | [place] [address] | + + + | Home Phone | | + + + | Preferred Language | Unknown | + + + | Marital Status | | + + + | Episcopalian Affiliation | 1013 | + + + | Race | Unknown | + + + | Ethnic Group | Unknown | + + + Author + + + | Author | [facility] | | | and [place] | + + + | Organization | [facility] | [...] Team Providers + +------+ + | Care Correctional Counselor Name | Role | Phone | [...] | | | | | positional | [address] | [address] | | | | | vertigo | MARIO MARTIN, | [address] | | | | | Procedures | [place] [address] | [address] | | | | | 10/25 PEND | Phone: | Mario Martin, | | | | | [place] | [phone] | [place] [address] | | | | | | Fax: | Phone: | | | | | | [phone] | [phone] | | | | | | | Fax: | | | | | | | [phone] | +--------+ + + + + + Encounter Details +--------+---------+ + + + | Date | Type | Department | Care Team | Description | +--------+---------+ + + + | 11/27/ | Office | [facility] [place] | Leonidas Huddleston, | Dizziness and | | 2014 | Visit | AUDIOLOGY AND | [address] | giddjimenez (Primary | | | | HEARING AID SERVICES | [place], [place] | Dx) | | | | [address] | [address] | | | | | [address] [facility] | | | | | | [place] [address] | [place], [place], [place] | | | | | [phone] | CCC-A [address] | | | | | | ST [address] [facility] | | | | | | [place] [address] | | | | | | [phone] | | | | | | | [...]
--- OUTSIDE RECORDS SUMMARY | ~2019-01-30 | XMS | Encounter Summary ---
Demographics + + + | Address | [address] [facility] [address] [facility] [address] [facility] [address] | | | [place] [address] | + + + | Home Phone | | + + + | Preferred Language | Unknown | + + + | Marital Status | | + + + | Episcopal Affiliation | 1013 | + + + | Race | Unknown | + + + | Ethnic Group | Unknown | + + + Author + + + | Author | [facility] | | | and [place] | + + + | Organization | [facility] | | | and [place] [...] Team Providers + +------+ + | Care Florist Name | Role | Phone | + [...] 2016 | | GASTROENTEROLOGY | [address], [place] | side pain) | | | | [address] [place] | 210 [place], [place] | | | | | 210 [place], [place] | [address] | | | | | [address] | | | | | | [phone] | | | +--------+ + + + [...]
--- OUTSIDE RECORDS SUMMARY | ~2019-01-30 | XMS | Encounter Summary ---
Demographics + + + | Address | [address] [facility] [address] [facility] | | | [place] [address] | + + + | Home Phone | | + + + | Preferred Language | Unknown | + + + | Marital Status | | + + + | Methodist Affiliation | 1013 | + + + | Race | Unknown | + + + | Ethnic Group | Unknown | + + + Author + + + | Author | [facility] | | | and [place] | + + + | Organization | [facility] | [...] Team Providers + +------+ + | Care Zipper Setter Chainstitch Name | Role | Phone | + [...] | 2016 | | OTOLARYNGOLOGY [address] | [address] [place] | | | | | [address] | 210 [place], | | | | | [place], [place] | [place] [address] | | | | | [address] | [phone] | | | | | [phone] | | | +--------+--------+ + + + [...]
--- OUTSIDE RECORDS SUMMARY | ~2019-01-30 | XMS | Encounter Summary ---
Demographics + + + | Address | [address] [facility] [address] [facility] | | | [place] [address] | + + + | Home Phone [...] | Author | [facility] | | | and [place] | + + + | Organization | [facility] | | | and [...] Team Providers + +------+ + | Care Law Enforcement Instructor Name | Role | Phone | [...] | pain | [address] | [address] | | | | n | Trochanteric | [address] | [place], | | | | | bursitis of | [place], | [place] | | | | | right hip | [place] [address] | [address] | | | | | Primary | Phone: | Phone: | | | | | osteoarthrit | [phone] | [phone] | | | | | is of right | Fax: | Fax: | | | | | hip | [phone] | [phone] | +--------+ + + + + + [...] ROGERS | Trochanteric | | | | [place], [place] | [address] | bursitis of right | | | | [address] | | hip; Primary | | | | [phone] | | osteoarthritis of | | | [...]
--- OUTSIDE RECORDS SUMMARY | ~2019-01-30 | XMS | Encounter Summary ---
Demographics + + + | Address | [address] [facility] [address] [facility] | | | [place] [address] | + + + | Home Phone [...] | [facility] | | | and [place] | + + + | Organization | [facility] | | | and [place] | [...] Team Providers + +------+ + | Care Internal Carver Name | Role | Phone | + [...] | | | | CENTER [address] | [place], [place] | (Primary Dx); | | | | [place], [place] | [address] | Diverticulitis of | | | | [address] | | large intestine | | | | [phone] | | without perforation | | | [...] sent through Care Everywhere.DIVERTICULITIS, DISCHARGE INSTRUCTIONS FOR (LATVIAN)documented in this encounter Medications at Time [...] [address] | [place] | [phone] | | [facility] | | [address] | | | - LABORATORY | | [...] + | [facility] | [address] | [place] | [phone] | | [facility] | | [address] | | | - LABORATORY | | [...] + | [facility] | [address] | [place] | [phone] | | [facility] | | [address] | | | - LABORATORY | | [...] + | [facility] | [address] | [place] | [phone] | | [facility] | | [address] | | | - LABORATORY | | [...] [address] | [place] | [phone] | | [facility] | | [address] | | | - LABORATORY | | [...] 15 | 7 - 18 mg/dL | [facility] | | | | | | [facility] | | | | | | MEDICAL | | | | | | CENTER - | | | | | | LABORATORY | | + + + + + + | Creatinine | 0.65 | 0.60 - 1.30 | [place] | | | | | mg/dL | [facility] | | | | | | MEDICAL | | | | | | CENTER - | | | | | | LABORATORY | | + + + + + + | eGFR if not | >60Comment: GLOMERULAR | >=60 | [facility] | | | | FILTRATION | mL/min/1.73m2 | [facility] | | | [place] | RATE,ESTIMATED | | MEDICAL | | | | mL/min/1.26a5Pazp than | | CENTER - | | [...] [address] | [place] | [phone] | | [facility] | | [address] | | | - LABORATORY | | [...] [address] | [place] | [phone] | | [facility] | | [address] | | | - LABORATORY | | [...]
--- OUTSIDE RECORDS SUMMARY | ~2019-01-30 | XMS | Encounter Summary ---
Demographics + + + | Address | [address] [facility] | | | [place] [address] | + + + | Home Phone | | + + + | Preferred Language | Unknown | + + + | Marital Status | | + + + | Caodaism Affiliation | 1013 | + + + | Race | Unknown | + + + | Ethnic Group | Unknown | + + + Author + + + | Author | [facility] | | | and [place] | + + + | Organization | [facility] | [...] Team Providers + +------+ + | Care Specialized Developer Name | Role | Phone | [...] [place], | | | | | [place], [place] | [place] [address] | | | | | [address] | [phone] | | | | | [phone] | | | +--------+--------+ + + + [...]
--- OUTSIDE RECORDS SUMMARY | ~2019-01-30 | XMS | Encounter Summary ---
Demographics + + + | Address | [address] [facility] | | | [place] [address] | + + + | Home Phone [...] Author | [facility] | | | and [place] | + + + | Organization | [facility] | | [...] Team Providers + +------+ + | Care Road Mender Name | Role | Phone | + [...] PHYSIATRY [address] | MD [address] | neuralgia (Primary | | | | [place], | [place], [place] | Dx) | | | | [place] [address] | [address] | | | | | [phone] | | | +--------+ + + + [...]
--- OUTSIDE RECORDS SUMMARY | ~2019-01-30 | XMS | Encounter Summary ---
Demographics + + + | Address | [address] [facility] | | | [place] [address] | + + + | Home Phone | | + + + | Preferred Language | Unknown | + + + | Marital Status | | + + + | Episcopalian Affiliation | 1013 | + + + | Race | Unknown | + + + | Ethnic Group | Unknown | + + + Author + + + | Author | [facility] | | | and [place] | + + + | Organization | [facility] | [...] Team Providers + +------+ + | Care Seasonal Recruiter Name | Role | Phone | + +------+ + | Teena Busch SIZER MACHINE | PCP | | + +------+ + [...] | occipital | [address] | [address] | | | | n | neuralgia | [address] | [place], | | | | | Procedures | [place], | [place] [address] | | | | | [place] INJECT | [place] [address] | Phone: | | | | | NERV | Phone: | [phone] | | | | | GREGORIO MILLER | [phone] | Fax: | | | | | [place] | Fax: | [phone] | | | | | BETAMETHASON | [phone] | | | | | | E [...] of medial | MD Erasmo | [address] | | | | n | meniscus, | [address] | [place], | | | | | current | [place] | [place] [address] | | | | | injury, | [place], [place] | Phone: | | | | | right knee, | [address] | [phone] | | | | | subsequent | Phone: | Fax: | | | | | encounter | [phone] | [phone] | | | | | review | Fax: | | | | | | response to | [phone] | | | | | | lyrica, [...] + + | 01/15/ | Office | [facility] | Leonidas Mohr, | Chronic daily | | 2014 | Visit | PHYSIATRY [address] | [address] | headache (Primary | | | | [place], | [place], [place] | Dx); Bilateral | | | | [place] [address] | [address] | occipital neuralgia; | | | | [phone] | | Migraine without | | | | | | aura and without | | [...] MD - 01/15/2015 4:06 PM PST [facility] PHYSIATRY [address] [place] [facility] [address] OFFICE NOTE LEONIDAS MOHR JR, MD Patient: LUZ MARIA LOCKWOOD Admitting: MR #: [id number] LOC: PT TYPE: Adm Date: 01/15/2015 : [...] greater occipital nerve blocks. She has requested [facility] to receive this procedure. She indicates that [facility] She would like to move forward with [...] 16:06:49 Transcribed on 01/16/2015 07:44:19 by [facility] job# [id number] Confirmation #: [id number] signed by Leonidas Mohr MD at 01/16/2015 1:00 PM [facility] - 01/15/2015 12:28 PM PSTThis office note has been dictated. Job ID# [id number] signed by Leonidas Mohr MD at 01/15/2015 [...]
--- OUTSIDE RECORDS SUMMARY | ~2019-01-30 | XMS | Encounter Summary ---
Demographics + + + | Address | [address] [facility] | | | [place] [address] | + + + | Home Phone [...] Author | [facility] | | | and [place] | + + + | Organization | [facility] | | | and [place] [...] Providers + +------+ + | Care Pipe Blanks Cut Off Saw Operator Name | Role | Phone | [...] | Sensorineura | [address] | [place] | | | | | l hearing | [address] | [place], | | | | | loss, | [place] | [place] [address] | | | | | bilateral | [place], [place] | Phone: | | | | | Benign | [address] | [phone] | | | | | paroxysmal | Phone: | Fax: | | | | | positional | [phone] | [phone] | | | | | vertigo | Fax: | | | | | | [phone] | [phone] | | | | | | (ICD-9-CM) [...] [place], | unspecified | | | | [place], [place] | [place] [address] | laterality (Primary | | | | [address] | [phone] | Dx); Sensorineural | | | | [phone] | | hearing loss, | | | [...]
--- OUTSIDE RECORDS SUMMARY | ~2019-01-30 | XMS | Encounter Summary ---
Demographics + + + | Address | [address] [facility] | | | [place] [address] | + + + | Home Phone [...] + + | Author | [facility] | | | and [place] | + + + | Organization | [facility] [...] Team Providers + +------+ + | Care Hospital Ward Clerk Name | Role | Phone | [...] | | | [address] [facility] | | | | | | [address] [place] | | | | | | [address] | | | | | | [phone] | | | +--------+ + + + [...]
--- OUTSIDE RECORDS SUMMARY | ~2019-01-30 | XMS | Encounter Summary ---
Demographics + + + | Address | [address] [facility] | | | [place] [address] | + + + | Home Phone [...] + | Author | [facility] | | | and [place] | + + + | Organization | [facility] | | [...] Team Providers + +------+ + | Care Care Information Associate Name | Role | Phone | + +------+ + | Teena Busch NP | PCP | | + +------+ + Reason for Visit + + + | Reason | Comments | + + + | Medication Question | | + + + Encounter Details +--------+ + + + + | Date | Type | Department | Care Team | Description | +--------+ + + + + | 08/06/ | Telephone | [facility] [place] | Leonidas Huddleston, | Medication Question | | 2016 | | PHYSIATRY [address] | MD [address] | | | | | [place], | [place], [place] | | | | | [place] [address] | [address] | | | | | [phone] | | | +--------+ + + + [...]
--- OUTSIDE RECORDS SUMMARY | ~2019-01-30 | XMS | Encounter Summary ---
Demographics + + + | Address | [address] [facility] | | | [place] [address] | + + + | Home Phone [...] + | Author | [facility] | | | and [place] | + + + | Organization | [facility] | | [...] Providers + +------+ + | Care Manager Chemical Name | Role | Phone | + [...] | SLEEP DISORDER 401 | [address] | Dx) | | | | [address] [place] | [place] | | | | | [place] [address] | [address] | | | | | [phone] | | | +--------+---------+ + + + [...] in this encounter Progress Notes Earnestine Haley, Application Integrator - 07/28/2017 2:00 PM PDTFormatting of this note might b e different from the original. 07/28/17 1300 Tilley Depression Inventory-II Depression Score 34 - Severe depression Insomnia Severity Index Insomnia Severity Index 24 Manchester Sleepiness Scale Sitting and reading 2 Watching [...] AirSense 10 with nasal mask obtained from: [facility] in [place] pressure: 9-20 cm (lowered to 4-8 cm [...] Exam Assessment: Problem #1: OBSTRUCTIVE SLEEP APNEA (SSB85-S09.33) This is controlled with CPAP, but she hasn't used it in the last year. Plan: 1. She is to continue with CPAP indefinitely. 2. She is to work toward wearing her CPAP 100% of the time she is asleep. I will follow up again in 1 month, sooner prn. Fifteen minutes were spent [id number], wi th the majority of time spent [...]
--- OUTSIDE RECORDS SUMMARY | ~2019-01-30 | XMS | Encounter Summary ---
Demographics + + + | Address | [address] [facility] | | | [place] [address] | + + + | Home Phone [...] [facility] | | | and [place] | + + + | Organization | [facility] | | | and [place] | + + + | Address | Unknown | + + + | Phone | Unavailable | + + + Support + + +---------+ + | Name | Relationship | Address | Phone | + + +---------+ + | Shasta Yepez | ECON | Unknown | | + + +---------+ + Care Team Providers + +------+ + | Care Wall Attendant Name | Role | Phone | + [...] | | | Rehabilitatio | neuralgia | VISUAL ARTS TEACHER [address] | | | | n | neck pain | [address] | [place], | | | | | follow up | [address] | [place] [address] | | | | | | [place], | Phone: | | | | | | [place] [address] | [phone] | | | | | | Phone: | Fax: | | | | | | [phone] | [phone] | | | | | | Fax: | | | | | | | [phone] | | +--------+--------+ + + + + Encounter Details +--------+---------+ + + + | Date | Type | Department | Care Team | Description | +--------+---------+ + + + | 11/13/ | Office | [facility] [place] | Leonidas Mohr, | Chronic daily | | 2016 | Visit | PHYSIATRY [address] | MD [address] | headache (Primary | | | | [place], | [place], [place] | Dx); Migraine | | | | [place] [address] | [address] | without aura and | | | | [phone] | | without status | | | [...] weeks. documented in this encounter Progress Notes eLonidas Mohr MD - 11/14/2015 1:00 PM PDT [facility] PHYSIATRY [address] [facility] [address] OFFICE NOTE LEONIDAS MOHR JR, MD Patient: LUZ MARIA LOCKWOOD Admitting: MR #: [id number] LOC: PT TYPE: Adm Date: 11/14/2015 : 1955 PHYSICAL MEDICINE REHABILITATION PROGRESS NOTE DATE OF : 1955 PRIMARY CARE PROVIDER: Teena Busch DATE OF SERVICE: 11/14/2015. PATIENT IDENTIFICATION: The patient was last seen by me 07/2015. At that time, it was fe [...] h er headaches are over the bilateral scientologist, bilateral forehead, and bilateral occipital reg ions. [...] it may also be contributing to headaches. Dustin robbins asked her to avoid all ibuprofen. Her [...] 13:00:02 Transcribed on 11/15/2015 06:18:54 by job# [id number] Confirmation #: [id number] signed by Leonidas Mohr MD at 11/19/2015 12:38 PM Leonidas Salas MD - 11/14/2015 9:29 AM PDTThis office note has been dictated. Report Confirmation# [id number] signed by Leonidas Mohr MD at 11/14/2015 [...]
--- OUTSIDE RECORDS SUMMARY | ~2019-01-30 | XMS | Clinical Summary ---
Demographics + + + | Address | [address] | | | [place] [address] | + + + | Home Phone | | + + + | Preferred Language | Unknown | + + + | Marital Status | Single | + + + | Confucianist Affiliation | Unknown | + + + | Race | Unknown | + + + | Ethnic Group | Unknown | + + + Author + + + | Author | [facility] (Historical as of | | | 10-28-18) | + + + | Organization | [facility] (Historical as of | | | 10-28-18) [...] Team Providers + +------+ + | Care Attorney Recruiter Name | Role | Phone | [...] + + | Father | | | [place] | | | | (Age | | [...] +------+-------+ + | MEDICAID | [place] | [id number] | | | [address] | | | N | | | | [place] | | | [place] | | | | [address] | | | RN OSTOMY | | | | | + +--------+ [...] Self | [birth year] | Home: | [address] | | | al/Fam | | [phone] | [phone] | [address] [place] | | | ju[place]ino | | | [address] | [address] | + +--------+ +--------+ + +
--- OUTSIDE RECORDS SUMMARY | ~2019-01-30 | XMS | Encounter Summary ---
Demographics + + + | Address | [address] [facility] [address] [facility] | | | [place] [address] | + + + | Home Phone | | + + + | Preferred Language | Unknown | + + + | Marital Status | | + + + | Methodist Affiliation | 1013 | + + + | Race | Unknown | + + + | Ethnic Group | Unknown | + + + Author + + + | Author | [facility] | | | and [place] | + + + | Organization | [facility] | [...] Providers + +------+ + | Care Heel Edge Inker Machine Name | Role | Phone | [...] [place], | | | | | [place], [place] | [place] [address] | | | | | [address] | [phone] | | | | | [phone] | | | +--------+--------+ + + + [...]
--- OUTSIDE RECORDS SUMMARY | ~2019-01-30 | XMS | Encounter Summary ---
Demographics + + + | Address | [address] [facility] | | | [place] [address] | + + + | Home Phone [...] | [facility] | | | and [place] | + + + | Organization | [facility] [...] Team Providers + +------+ + | Care Onsite Health Coach Name | Role | Phone | + [...] + + | 12/17/ | Emergency | [facility] | Rj Leung MD | Knee contusion, | | 2014 | | [facility] | [address] | right, initial | | | | CENTER [address] | [place], [place] | encounter (Primary | | | | [place], [place] | [address] | Dx); Knee sprain and | | | | [address] | | strain, right, | | | | [phone] | | initial encounter | +--------+ + [...] through Care Everywhere.STRAINS AND SPR AINS, TREATING (BRUNEIAN)documented in this encounter Medications at Time of [...]
--- OUTSIDE RECORDS SUMMARY | ~2019-01-30 | XMS | Encounter Summary ---
Demographics + + + | Address | [address] [facility] | | | [place] [address] | + + + | Home Phone [...] Author | [facility] | | | and [place] | + + + | Organization | [facility] | | | and [place] | [...] Team Providers + +------+ + | Care Hasher Operator Name | Role | Phone | [...] | | | Rehabilitatio | neuralgia | SENIOR ELECTRONICS ENGINEER [address] | | | | n | neck pain | [address] | [place], | | | | | follow up | [address] | [place] [address] | | | | | | [place], | Phone: | | | | | | [place] [address] | [phone] | | | | | | Phone: | Fax: | | | | | | [phone] | [phone] | | | | | | Fax: | | | | | | | [phone] | | +--------+--------+ + + + + Encounter Details +--------+---------+ + + + | Date | Type | Department | Care Team | Description | +--------+---------+ + + + | 11/13/ | Office | [facility] [place] | Leonidas Mohr, | Chronic daily | | 2016 | Visit | PHYSIATRY [address] | MD [address] | headache (Primary | | | | [place], | [place], [place] | Dx); Migraine | | | | [place] [address] | [address] | without aura and | | | | [phone] | | without status | | | [...] in this encounter Patient Instructions Patient Instructions Lenoidas Mohr MD - 11/14/2015 9:28 AM PDTTaper [...] MD - 11/14/2015 1:00 PM PDT [facility] PHYSIATRY [address] [facility] [address] OFFICE NOTE LEONIDAS MOHR JR, MD Patient: LUZ MARIA LOCKWOOD Admitting: MR #: [id number] LOC: PT TYPE: Adm Date: 11/14/2015 : [...] h er headaches are over the bilateral yarsanism, bilateral forehead, and bilateral occipital reg ions. [...] 13:00:02 Transcribed on 11/15/2015 06:18:54 by job# [id number] Confirmation #: [id number] signed by Leonidas Mohr MD at 11/19/2015 12:38 PM Leonidas Salas MD - 11/14/2015 9:29 AM PDTThis office note has been dictated. Report Confirmation# [id number] signed by Leonidas Mohr MD at 11/14/2015 [...]
--- OUTSIDE RECORDS SUMMARY | ~2019-01-30 | XMS | Encounter Summary ---
Demographics + + + | Address | [address] [facility] | | | [place] [address] | + + + | Home Phone [...] + + | Author | [facility] | | | and [place] | + + + | Organization | [facility] | | | and [place] [...] Team Providers + +------+ + | Care Sawmill Supervisor Name | Role | Phone | [...] | Leonidas Irving MD | [address] | | | | | pain | [address] | [place], | | | | | Swelling of | [address] | [place] | | | | | right knee | [place], | [address] | | | | | joint | [place] [address] | Phone: | | | | | Procedures | Phone: | [phone] | | | | | MRI Knee | [phone] | Fax: | | | | | Right wo | Fax: | [phone] | | | | | Contrast | [phone] | | +--------+--------+ + + + + [...] | Leonidas Irving MD | [address] | | | | | pain | [address] | [place], | | | | | Swelling of | [address] | [place] | | | | | right knee | [place], | [address] | | | | | joint | [place] [address] | Phone: | | | | | Procedures | Phone: | [phone] | | | | | MRI Knee | [phone] | Fax: | | | | | Right wo | Fax: | [phone] | | | | | Contrast | [phone] | | +--------+--------+ + + + + Encounter Details +--------+ + + + + | Date | Type | Department | Care Team | Description | +--------+ + + + + | 12/10/ | Hospital | [facility] | Leonidas Huddleston, | Right knee pain; | | 2014 | Encounter | MED CTR MRI [address] | MD [address] | Swelling of right | | | | [address] [place], | [place], [place] | knee joint | | | | [place] [address] | [address] | | | | | [phone] | | | +--------+ + + + [...] right knee swelling. COMPARISON: Right knee | [facility] | | x-ray 12/04/2014. PROTOCOL: Axial proton density fat sat, sagittal [facility] | | proton density, coronal proton [...] + + | Performing | Address | City/State/[facility] | Phone Number | | Organization | | | | + + + + + | [address] | [address] | [place] | [phone] | | [facility] | | [address] | | | - IMAGING | | [...]
--- OUTSIDE RECORDS SUMMARY | ~2019-01-30 | XMS | Encounter Summary ---
Demographics + + + | Address | [address] [facility] | | | [place] [address] | + + + | Home Phone [...] | Author | [facility] | | | and [place] | + + + | Organization | [facility] | | | [...] Team Providers + +------+ + | Care Association Executive Name | Role | Phone | + [...] PHYSIATRY [address] | MD [address] | | | | | [place], | [place], [place] | | | | | [place] [address] | [address] | | | | | [phone] | | | +--------+--------+ + + + [...]
--- OUTSIDE RECORDS SUMMARY | ~2019-01-30 | XMS | Encounter Summary ---
Demographics + + + | Address | [address] [facility] | | | [place] [address] | + + + | Home Phone [...] Author | [facility] | | | and [place] | + + + | Organization | [facility] | | [...] Team Providers + +------+ + | Care Produce Shipper Name | Role | Phone | + [...] | SLEEP DISORDER [address] | [address] | Dx) | | | | [address] [place] | [place] | | | | | [place] [address] | [address] | | | | | [phone] | | | +--------+---------+ + + + [...] AirSense 10 with nasal mask obtained from: [employer] in [place] pressure: 9-20 cm (lowered to 4-8 cm [...] not contact our office or In Home [facility] in [place]. She thinks her power cord may have [...] Exam Assessment: Problem #1: OBSTRUCTIVE SLEEP APNEA ([id number]-V77.33) This is controlled with CPAP. She improved her usage with her CPAP, but is still inconsist ent with it. Plan: 1. She is to continue with CPAP indefinitely. 2. She is to work toward wearing her CPAP 100% of the time she is asleep. I will follow up again in 2 months, sooner prn. Fifteen minutes were spent [id number], w ith the majority of time spent [...]
--- OUTSIDE RECORDS SUMMARY | ~2019-01-30 | XMS | Encounter Summary ---
Demographics + + + | Address | [address] [facility] | | | [place] [address] | + + + | Home Phone [...] + | Author | [facility] | | | and [place] | + + + | Organization | [facility] | | | and [...] Team Providers + +------+ + | Care Laboratory Development Technician Name | Role | Phone | + +------+ + | Abimael Devlin MD | PCP | | + +------+ + Encounter Details +--------+ + + + + | Date | Type | Department | Care Team | Description | +--------+ + + + + | 04/03/ | Orders Only | [facility] | [place], | | | 2014 | | CARDIOLOGY CHEN | MD [address] | | | | | [address] | [place] | | | | | [place] | [place] [address] | | | | | [place] | [phone] | | | | | [address] | | | | | | [phone] | | | +--------+ + + + [...] Performed At | + + + | [facility] CARDIOLOG[facility] Nuclear Lexiscan Stress Test | | [...] 121/63. Symptoms headache, nausea, and chest pain /10 Stress EKG | | | showed no [...] + + | Ever Almazan Conversion - 11/03/2018 12:23 PM PDT [facility] | | Lexiscan Stress Test INDICATION FOR [...]
--- OUTSIDE RECORDS SUMMARY | ~2019-01-30 | XMS | Encounter Summary ---
Demographics + + + | Address | [address] [facility] | | | [place] [address] | + + + | Home Phone | | + + + | Preferred Language | Unknown | + + + | Marital Status | | + + + | Christian Affiliation | 1013 | + + + | Race | Unknown | + + + | Ethnic Group | Unknown | + + + Author + + + | Author | [facility] | | | and [place] | + + + | Organization | [facility] | | | and [place] | [...] Providers + +------+ + | Care Administrative Judge Name | Role | Phone | + [...] + | 06/07/ | Office | [facility] | Andre Caballero | Chronic pain of both | | 2019 | Visit | ORTHOPEDIC SURGERY | MD Rojelio [address] [place] [address] | knees (Primary Dx); | | | | [address] [facility] | [facility] | Primary | | | | [place], [place] | [address] | osteoarthritis of | | | | [address] | | both knees | | | | [phone] | | | +--------+---------+ + + + [...]
--- OUTSIDE RECORDS SUMMARY | ~2019-01-30 | XMS | Encounter Summary ---
Demographics + + + | Address | [address] [facility] | | | [place] [address] | + + + | Home Phone | | + + + | Preferred Language | Unknown | + + + | Marital Status | | + + + | Catholic Affiliation | 1013 | + + + | Race | Unknown | + + + | Ethnic Group | Unknown | + + + Author + + + | Author | [facility] | | | and [place] | + + + | Organization | [facility] | | | and [...] Team Providers + +------+ + | Care Lead Web Application Developer Name | Role | Phone | [...] SLEEP DISORDER [address] | [address] | Dx) | | | | [address] [place] | [place] | | | | | [place] [address] | [address] | | | | | [phone] | | | +--------+---------+ + + + [...] AirSense 10 Mask type: nasal mask DME: [place] in [place] pressure: 9-20 cm (lowered to [...] Exam Assessment: Problem #1: OBSTRUCTIVE SLEEP APNEA (BNB58-O44.33) This is controlled with CPAP. She improved her usage with her CPAP, but is still inconsist ent with it. Plan: 1. She is to continue with CPAP indefinitely. 2. She is to work toward wearing her CPAP 100% of the time she is asleep. I will follow up again in 2 months, sooner prn. Fifteen minutes were spent rika-mx-rymi, w ith the majority of time spent [...]
--- OUTSIDE RECORDS SUMMARY | ~2019-01-30 | XMS | Encounter Summary ---
Demographics + + + | Address | [address] [facility] | | | [place] [address] | + + + | Home Phone [...] [facility] | | | and [place] | + + + | Organization | [facility] [...] Team Providers + +------+ + | Care Echocardiography Tech Name | Role | Phone | [...] + + | 01/08/ | Office | [facility] [place] | Leonidas Mohr, | Fibromyalgia | | 2015 | Visit | PHYSIATRY [address] | MD [address] | (Primary Dx); | | | | [place], | [place], [place] | Chronic daily | | | | [place] [address] | [address] | headache; Migraine | | | | [phone] | | without aura and | | [...] - 01/09/2016 12:52 PM PDT [facility] [place] PHYSIATRY [address] [facility] [address] OFFICE NOTE LEONIDAS MOHR JR, MD Patient: LUZ MARIA LOCKWOOD Admitting: MR #: [id number] LOC: PT TYPE: Adm Date: 01/09/2016 : [...] 01/09/2016 12:52:20 Transcribed on 01/10/2016 09:17:55 by [facility] job# [id number] Confirmation #: [id number] cc: ABIMAEL DEVLIN MD Leonidas Mijares MD - 01/09/2016 12:40 PM PDTThis office note has been dictated. Report Confirmation# [id number] signed by Leonidas Mohr MD at 01/09/2016 [...]
--- OUTSIDE RECORDS SUMMARY | ~2019-01-30 | XMS | Encounter Summary ---
Demographics + + + | Address | [address] [facility] | | | [place] [address] | + + + | Home Phone [...] | Author | [facility] | | | and [place] | + + + | Organization | [facility] [...] Team Providers + +------+ + | Care Mother Repairer Name | Role | Phone | [...] 2016 | | GASTROENTEROLOGY | [address], [place] | side pain) | | | | [address] [place] | [address] [place], [place] | | | | | [address] [place], [place] | [address] | | | | | [address] | | | | | | [phone] | | | +--------+ + + + [...]
--- OUTSIDE RECORDS SUMMARY | ~2019-01-30 | XMS | Encounter Summary ---
Demographics + + + | Address | [address] [facility] | | | [place] [address] | + + + | Home Phone [...] Author | [facility] | | | and [place] | + + + | Organization | [facility] | | | and [place] | [...] + +------+ + | Care Director Of Cardiology Name | Role | Phone | + [...] + + | 03/15/ | Office | [facility] | Andre Caballero | Primary | | 2019 | Visit | ORTHOPEDIC SURGERY | MD [address] [facility] | osteoarthritis of | | | | [address] [facility] | [place] | right hip (Primary | | | | [place], [place] | [address] | Dx) | | | | [address] | | | | | | [phone] | | | +--------+---------+ + + + [...] cessation. She also will work diligently on [email or web address] and will be seen back or office [...]
--- OUTSIDE RECORDS SUMMARY | ~2019-01-30 | XMS | Encounter Summary ---
Demographics + + + | Address | [address] [facility] | | | [place] [address] | + + + | Home Phone | | + + + | Preferred Language | Unknown | + + + | Marital Status | | + + + | Bahai Affiliation | 1013 | + + + | Race | Unknown | + + + | Ethnic Group | Unknown | + + + Author + + + | Author | [facility] | | | and [place] | + + + | Organization | [facility] | [...] Team Providers + +------+ + | Care House Repairer Name | Role | Phone | [...] Rehabilitatio | Fibromyalgia | [address] | | | | n | | [address] | [place], | | | | | Cervicalgia | [place], | [place] [address] | | | | | Cervical | [place] [address] | Phone: | | | | | dystonia | Phone: | [phone] | | | | | History of | [phone] | Fax: | | | | | cervical | Fax: | [phone] | | | | | spinal | [phone] | | | | | | surgery [...] | | | Rehabilitatio | neuralgia | [address] | [address] | | | | n | neck pain | [address] | [place], | | | | | follow up | [address] | [place] [address] | | | | | | [place], | Phone: | | | | | | [place] [address] | [phone] | | | | | | Phone: | Fax: | | | | | | [phone] | [phone] | | | | | | Fax: | | | | | | | [phone] | | +--------+--------+ + + + + Encounter Details +--------+---------+ + + + | Date | Type | Department | Care Team | Description | +--------+---------+ + + + | 07/31/ | Office | [facility] [place] | Leonidas Mohr, | Chronic daily | | 2015 | Visit | PHYSIATRY [address] | MD [address] | headache (Primary | | | | [place], | [place], [place] | Dx); Migraine | | | | [place] [address] | [address] | without aura and | | | | [phone] | | without status | | | [...] physical therapy within one week, please contact [facility]. Once you have completed physical therapy please continue the home exercise progr am as outline by physical therapy, indefinitely. Return to the clinic in 3 months. documented in this encounter Progress Notes Leonidas Mohr MD - 08/01/2015 10:48 AM PDT [facility] PHYSIATRY [address] [facility] [address] OFFICE NOTE LEONIDAS MOHR JR, MD Patient: LUZ MARIA LOCKWOOD Admitting: MR #: [id number] LOC: PT TYPE: Adm Date: 08/01/2015 : [...] ago. Since running out of her L [employer], her headaches have been worse. She has [...] Transcribed on 08/01/2015 11:20:21 by viktoria job# [id number] Confirmation #: [id number] cc: JANELLE BUSCH NP [facility], Leonidas Irving MD - 08/01/2015 10:40 AM PDTThis office note has been dictated. Job ID# [id number] signed by Leonidas Mohr MD at 08/01/2015 [...]
--- OUTSIDE RECORDS SUMMARY | ~2019-01-30 | XMS | Encounter Summary ---
Demographics + + + | Address | [address] [facility] | | | [place] [address] | + + + | Home Phone [...] + | Author | [facility] | | | and [place] | + + + | Organization | [facility] | | | and [place] [...] Team Providers + +------+ + | Care Rebar Worker Name | Role | Phone | + +------+ + | Abimael Devlin MD | PCP | | + +------+ + Encounter Details +--------+ + + + + | Date | Type | Department | Care Team | Description | +--------+ + + + + | 04/03/ | Orders Only | [facility] | [place], | | | 2014 | | CARDIOLOGY CHEN | MD [address] | | | | | [address] | [place] [address] [place] | | | | | [place] | [place] [address] | | | | | [place] | [phone] | | | | | [address] | | | | | | [phone] | | | +--------+ + + + [...] Performed At | + + + | [facility] CARDIOLOGY Nuclear Lexiscan Stress Test | [...] Almazan Conversion - 11/03/2018 12:23 PM PDT [facility] | | Lexiscan Stress Test INDICATION FOR [...]
--- OUTSIDE RECORDS SUMMARY | ~2019-01-30 | XMS | Encounter Summary ---
Demographics + + + | Address | [address] [facility] | | | [place] [address] | + + + | Home Phone [...] + | Author | [facility] | | | and [place] | + + + | Organization | [facility] | | | and [...] Team Providers + +------+ + | Care Finisher Hot Strip Name | Role | Phone | + +------+ + | Abimael Devlin MD | PCP | | + +------+ + Reason for Visit +--------+ + | Reason | Comments | +--------+ + | Other | Pharmacy/Medication verification | +--------+ + Encounter Details +--------+ + + + + | Date | Type | Department | Care Team | Description | +--------+ + + + + | 01/12/ | Telephone | [facility] | Leonidas Huddleston, | Other | | 2016 | | PHYSIATRY [address] | [address] | (Pharmacy/Medication | | | | [place], | [place], [place] | verification) | | | | [place] [address] | [id number] | | | | | [phone] | | | +--------+ + + + [...]
--- OUTSIDE RECORDS SUMMARY | ~2019-01-30 | XMS | Clinical Summary ---
Demographics + + + | Address | [address] | | | [place] [address] | + + + | Home Phone | | + + + | Preferred Language | Unknown | + + + | Marital Status | Single | + + + | Jewish Affiliation | Unknown | + + + | Race | Unknown | + + + | Ethnic Group | Unknown | + + + Author + + + | Author | [facility] (Historical as of | | | 10-28-18) | + + + | Organization | [facility] (Historical as of | | | 10-28-18) [...] Team Providers + +------+ + | Care Kitchen Porter Name | Role | Phone | [...] + + | Father | | | [place] | | | | (Age | | [...] +------+-------+ + | MEDICAID | EASTER | [id number] | | | [address] | | | N | | | | [place] | | | [place] | | | | [address] | | | MANAGEMENT ASSISTANT | | | | | + +--------+ [...] Self | [birth year] | Home: | [address] | | | al/Fam | | [phone] | [phone] | [address] [place] | | | ju[place]ino | | | [address] | [address] | + +--------+ +--------+ + +
--- OUTSIDE RECORDS SUMMARY | ~2019-01-30 | XMS | Encounter Summary ---
Demographics + + + | Address | [address] [facility] | | | [place] [address] | + + + | Home Phone [...] | Author | [facility] | | | and [place] | + + + | Organization | [facility] | | | and [place] [...] Providers + +------+ + | Care Nurse First Aid Name | Role | Phone | + [...] + + | 06/07/ | Office | [facility] | Andre Caballero | Chronic pain of both | | 2019 | Visit | ORTHOPEDIC SURGERY | MD Rojelio [address] [place] [address] | knees (Primary Dx); | | | | [address] [facility] | [facility] [place] | Primary | | | | [place] | [address] | osteoarthritis of | | | | [address] | | both knees | | | | [phone] | | | +--------+---------+ + + + [...]
--- OUTSIDE RECORDS SUMMARY | ~2019-01-30 | XMS | Encounter Summary ---
Demographics + + + | Address | [address] [facility] [address] | | | [place] [address] | + + + | Home Phone [...] | Author | [facility] | | | and [place] | + + + | Organization | [facility] [...] Team Providers + +------+ + | Care Bolt Header Name | Role | Phone | + [...] | | | | CENTER [address] | [place] | laterality (Primary | | | | [place] | [address] | Dx) | | | | [address] | | | | | | [phone] | | | +--------+ + + + [...]
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
--- OUTSIDE RECORDS SUMMARY | ~2019-01-30 | XMS | Encounter Summary ---
Demographics + + + | Address | [address] [facility] [address] | | | [place] [address] | + + + | Home Phone [...] Author | [facility] | | | and [place] | + + + | Organization | [facility] [...] Team Providers + +------+ + | Care Staff Toxicologist Name | Role | Phone | + [...] | Services | Medicine | | Leonidas Irvign MD | Mone Sleep | | | Required | | Fibromyalgia | [address] | Disorder [address] | | | | | Snoring | [address] | [address] | | | | | Apnea | [place], | [place], | | | | | | [place] [address] | [place] [address] | | | | | | Phone: | Phone: | | | | | | [phone] | [phone] | | | | | | Fax: | Fax: | | | | | | [phone] | [phone] | +--------+ + + + + + [...] | | | | | cervical | [address] | | | | | | region | [place], | | | | | | Cervical | [place] [address] | | | | | | spondylosis | Phone: | | | | | | Cervicalgia | [phone] | | | | | | Status | Fax: | | | | | | post | [phone] | | | | | | cervical [...] | | | [place] | [place] [address] | | | | | | [place], [place] | Phone: | | | | | | [address] | [phone] | | | | | | Phone: | Fax: | | | | | | [phone] | [phone] | | | | | | Fax: | | | | | | | [phone] | | +--------+--------+ + + + + Encounter Details +--------+---------+ + + + | Date | Type | Department | Care Team | Description | +--------+---------+ + + + | 08/21/ | Office | [facility] [place] | Leonidas Mohr, | Cervicalgia (Primary | | 2014 | Visit | PHYSIATRY [address] | [address] | Dx); Cervical | | | | [address] [place], | [place] | spondylosis; | | | | [place] [address] | [address] | Cervical spinal | | | | [phone] | | stenosis; Status | | | [...] therapy within one week, please contact [facility]. Once you have completed physical [...] MD - 08/21/2014 5:21 PM PDT [facility] PHYSIATRY [address] [facility] [address] OFFICE NOTE LEONIDAS MOHR JR, MD Patient: LUZ MARIA LOCKWOOD Admitting: MR #: [id number] LOC: PT TYPE: Adm Date: 08/21/2014 : [...] triceps, wrist dorsiflexion, finger abduction and hand door attendant; 4+/5 hip flexion, knee flexion, knee extension, [...] 17:21:09 Transcribed on 08/22/2014 01:15:33 by job# [id number] Confirmation #: [id number] cc: WICHO STARKEY MD Leonidas Mohr MD - 08/21/2014 1:53 PM PDTThis office note has been dictated. Job ID# [id number] signed by Leonidas Mohr MD at 08/21/2014 [...]
--- OUTSIDE RECORDS SUMMARY | ~2019-01-30 | XMS | Encounter Summary ---
Demographics + + + | Address | [address] [facility] [address] | | | [place] [address] | + + + | Home Phone [...] | Author | [facility] | | | and [place] | + + + | Organization | [facility] | | | and [...] Team Providers + +------+ + | Care Excellence Manager Name | Role | Phone | [...] + + | 10/19/ | Office | [facility] | Sundeep Ba PA | CONSUELO on CPAP (Primary | | 2016 | Visit | SLEEP DISORDER [address] | [address] | Dx) | | | | [address] [place] | [place] | | | | | [place] [address] | [address] | | | | | [phone] | | | +--------+---------+ + + + [...] AirSense 10 with nasal mask obtained from: [employer] in [place] pressure: 9-20 cm (lowered to 4-8 cm for comfort) Median: 7.8 cm 95%: 7.9 cm maximum: 7.9 cm Nights using CPAP: 05/25 53/62 56/91 36/98 % of nights >4 hours: 0% [...] Exam Assessment: Problem #1: OBSTRUCTIVE SLEEP APNEA (IZU20-F46.33) This is controlled with CPAP. She continues [...] months, sooner prn. Fifteen minutes were spent bcyj-jf-rwls, w ith the majority of time spent [...]
--- OUTSIDE RECORDS SUMMARY | ~2019-01-30 | XMS | Encounter Summary ---
Demographics + + + | Address | [address] [facility] | | | [place] [address] | + + + | Home Phone [...] Author | [facility] | | | and [place] | + + + | Organization | [facility] | [...] Providers + +------+ + | Care Supervisor Wet End Name | Role | Phone | + [...] | | | | | positional | [address] | [address] [place] | | | | | vertigo | [place], | [address] [place] | | | | | Procedures | [place] [address] | [place], [place] | | | | | 10/25 PEND | Phone: | [phone] | | | | | [place] | [phone] | Phone: | | | | | | Fax: | [phone] | | | | | | [phone] | Fax: | | | | | | | [phone] | +--------+ + + + + + Encounter Details +--------+---------+ + + + | Date | Type | Department | Care Team | Description | +--------+---------+ + + + | 11/27/ | Office | [facility] | Leonidas Mohr, | BPPV (benign | | 2014 | Visit | OTOLARYNGOLOGY [address] | MD [address] | paroxysmal | | | | [address] | [place] | positional vertigo), | | | | [place], [place] | [id number] | bilateral (Primary | | | | [address] | | Dx); Sensorineural | | | | [phone] | Leonidas Mohr MD | hearing loss, | | | | | [address] [place] | bilateral | | | | | [address] [facility] [place] | | | | | | [address] | | | | | | | [...] - 11/27/2014 2:23 PM PDT [facility] [place] OT[facility]ARY[facility]OLOGY [address] [facility] [facility] [address] OFFICE NOTE LEONIDAS MOHR MD Patient: LUZ MARIA LOCKWOOD Admitting: MR #: [id number] LOC: PT TYPE: Adm Date: 11/27/2014 : [...] were normal A-shaped tympanograms. The patient's speech maintenance superintendent threshold is 25 dB bilaterally. Speech discrimination [...] 14:23:51 Transcribed on 11/27/2014 14:43:01 by job# [id number] Confirmation #: [id number] cc: EPI STARKEY MD [facility], Leonidas Campos MD - 11/27/2014 2:19 PM PDTSee dictation #[id number] signed by Leonidas Mohr MD at 11/27/2014 [...]
--- OUTSIDE RECORDS SUMMARY | ~2019-01-30 | XMS | Encounter Summary ---
Demographics + + + | Address | [address] [facility] | | | [place] [address] | + + + | Home Phone [...] | Author | [facility] | | | and [place] | + + + | Organization | [facility] | | | [...] Team Providers + +------+ + | Care Shuttle Buggy Operator Name | Role | Phone | + +------+ + PCP | Unavailable | + +------+ + Encounter Details +--------+ + + + + | Date | Type | Department | Care Team | Description | +--------+ + + + + | 06/15/ | Hospital | [facility] | Trevor Cárdenas MD | | | 2010 | Encounter | MED CTR XRAY [address] | [address] | | | | | [employer] | [place] | | | | | [place] [address] | [address] | | | | | [phone] | | | +--------+ + + + [...] Performed At | + + + | [facility] | [facility] | | [address] [facility] | [facility] | | E C H O C | DIAG IMG | | A R D I O G R A P H Y R E P O R T HEIGHT: 5'9" | | | WEIGHT: 240# PHOTOGRAPHIC INTELLIGENCE OFFICER: TD REFERRING PHYSICIAN: Dr. Murray | | [...] Brendan Swan, | | | MD> 06/19/10 5705 | | + + + + + | Procedure Note | + + | Ever Almazan - 04/20/2013 2:37 PM [facility] | | Diagnostic Imaging Department | | [address] [facility] | | | | | | | | | | | | E C H O C A R D I O G R A P H Y R E P O R T | | | | | | HEIGHT: 5'9" WEIGHT: 240# PHOTOGRAPHIC INTELLIGENCE OFFICER: TD | | REFERRING PHYSICIAN: Dr. Trevor [...]
--- OUTSIDE RECORDS SUMMARY | ~2019-01-30 | XMS | Encounter Summary ---
Demographics + + + | Address | [address] [facility] | | | [place] [address] | + + + | Home Phone | | + + + | Preferred Language | Unknown | + + + | Marital Status | | + + + | Restoration Affiliation | 1013 | + + + | Race | Unknown | + + + | Ethnic Group | Unknown | + + + Author + + + | Author | [facility] | | | and [place] | + + + | Organization | [facility] | [...] Providers + +------+ + | Care Assistant Spa Director Name | Role | Phone | [...] | | | | | | | [place] | | | | | | | COLONOSCOPY | | | | | | | FLX DX | | | | | | | W/COLLJ SPEC | | | | | | | WHEN PFRMD | | | | | | | [place] | | | | | | | COLONOSCOPY | | | | | | | W/BIOPSY | | | | | | | SINGLE/MULTI | | | | | | | PLE [place] | | | | | | | COLSC FLX | | | | | | | W/RMVL OF | | | | | | | TUMOR POLYP | | | | | | | LESION SNARE | | | | | | | TQ [place] | | | | | | | [...] + + | 10/14/ | Surgery | [facility] | Patrick England MD | COLONOSCOPY | | 2017 | | MED CTR MP INTRA OP | [address], [place] | | | | | [address] | [address] [place] | | | | | [place], [place] | [address] | | | | | [address] | | | | | | [phone] | | | +--------+---------+ + + + [...] needed, you may be told to take qvvc-hbk-pqkprhk stool softeners. To help relieve pain, antispasmodic [...] needed in some people with severe symptoms. [employer] to colon health Diverticulitis occurs when the pouches become infected or inflamed. Help keep your colon healthy with a diet that includes plenty of high-fiber fruits, vegetab les, and whole grains. Drink plenty of liquids like water and juice. Maintain a healthy life style including regular exercise, stress management, and adequate rest and sleep. Date Last Reviewed: 09/12/201519997001-0396 [employer]. [address] [place] [address], [place] [address]. All righ ts reserved. This information is [...] 10/14/2016 | PROVATION | | 11:37 AMMRN: [id number] #: [id number] of : | | | 5Admit Type: AmbulatoryAge: 61[facility]: [facility] 01Gender: FemaleNote | | | Status: FinalizedAttending MD: Patrick England , [facility]cedure: | | | ColonoscopyIndications: Abdominal pain in the left lower | | | quadrant, Abnormal CT of the GI | | | tractProviders: Patrick England MD, Rebekah Balderrama, | | | RN, Lisandra Haddad, Mobile Lab Technician, | | | Erasmo Herrera MD (Anesthesia [...] | | | the anesthesiologist and the dialysis equipment technician in the endoscopy suite. | | [...] In: 11:50:23 AMScope Out: 12:06:[address] [facility] | | | [facility], [address] [place] [address] | | | [phone] | | | - Resume previous diet [...] |Scope Out: 12:06:24 PM | | | [facility], [address] [place] [address] | | | [address] | | + + -+ + +---------+ + + | Performing | Address | City/State/[facility] | Phone Number | | Organization [...] | | | POC | | | STKaya ROLLINS | | [...] | + + + + + | [address] | [address] | [place] | [phone] | | [facility] | | [address] | | | - LABORATORY | | [...] | | | Starting Naty 8 at 1314, For | | | 1 [...] mL/hr, Intravenous, | | | CONTINUOUS, Starting Ntay 10/14/16 | | | at 1330, Pre-op [...] ONCE | | | PRN, Nausea, Starting [facility] 10/14/16 | | | at 1314, For 1 dose, | | | Recovery/Phase I | | + +---+ | | | + +---+ documented in this encounter
--- OUTSIDE RECORDS SUMMARY | ~2019-01-30 | XMS | Clinical Summary ---
Demographics + + + | Address | [address] [facility] | | | [place] [address] | + + + | Home Phone [...] | Author | [facility] | | | and [place] | + + + | Organization | [facility] | | | and [place] [...] Team Providers + +------+ + | Care Content Developer Name | Role | Phone | [...] of suicidal ideation. Goes to | | [facility]. Psychiatric meds prescribed by Dr PizanoDx Name | | changed by system update on 12/24/2016Overview: History of | | suicidal ideation. Goes to [facility]. Psychiatric meds prescribed | | by Dr PizanoDx Name changed by system update on 12/24/2016 | | | |Overview: | |History of suicidal ideation. Goes to [facility]. Psychiatric meds prescribed by | | Dr [...] | [facility] | [facility] | [id number] | 09/12/19 | [phone] | | Medica [...] Self | [birth year] | | [address] | | | al/Fam | | 1956 | [phone] | [address] [place] | | | juventino | | | 8 (Home) | [address] | + +--------+ +--------+ + + Advance Directives + + + + + | Type | Date Recorded | Patient | Explanation | | | | Clinical Trials Data Coordinator | | + + + + + | Power of | | | | | Armhole Feller Handstitching Machine | | | | + + + + + | Advance | 10/14/2016 9:58 | | | | Directive | AM | | | + + + + +
--- OUTSIDE RECORDS SUMMARY | ~2019-01-30 | XMS | Encounter Summary ---
Demographics + + + | Address | [address] [facility] [address] | | | [place] [address] | + + + | Home Phone [...] Author | [facility] | | | and [place] | + + + | Organization | [facility] | | | and [...] Team Providers + +------+ + | Care Icu Specialist Name | Role | Phone | [...] PHYSIATRY [address] | MD [address] | Assistance | | | | [place], | [place], [place] | | | | | [place] [address] | [address] | | | | | [phone] | | | +--------+ + + + [...]
--- OUTSIDE RECORDS SUMMARY | ~2019-01-30 | XMS | Encounter Summary ---
Demographics + + + | Address | [address] [facility] | | | [place] [address] | + + + | Home Phone [...] + | Author | [facility] | | | and [place] | + + + | Organization | [facility] | | | and [...] Providers + +------+ + | Care Clinical Nurse Reviewer Name | Role | Phone | + +------+ + PCP | Unavailable | + +------+ + Encounter Details +--------+ + + + + | Date | Type | Department | Care Team | Description | +--------+ + + + + | 04/26/ | Hospital | [facility] | Conversion | Pain | | 2013 | Encounter | CONVERSION DEP [address] | Transaction, | | | | | [address] | Provider Unknown | | | | | [place] | | | | | | [address] | (Fax) | | | | | [phone] | | | +--------+ + + + [...]
--- OUTSIDE RECORDS SUMMARY | ~2019-01-30 | XMS | Encounter Summary ---
Demographics + + + | Address | [address] [facility] | | | [place] [address] | + + + | Home Phone | | + + + | Preferred Language | Unknown | + + + | Marital Status | | + + + | Faith Affiliation | 1013 | + + + | Race | Unknown | + + + | Ethnic Group | Unknown | + + + Author + + + | Author | [facility] | | | and [place] | + + + | Organization | [facility] | | | and [place] [...] Team Providers + +------+ + | Care Equipment Operating Engineer Name | Role | Phone | [...] + + | 10/05/ | Telephone | [facility] | Katy Huddlestonterrance [place], | Other | | 2014 | | PHYSIATRY [address] | MD [address] [place] | | | | | [place], | [place], [place] | | | | | [place] [address] | [address] | | | | | [phone] | | | +--------+ + + + [...]
--- OUTSIDE RECORDS SUMMARY | ~2019-01-30 | XMS | Encounter Summary ---
Demographics + + + | Address | [address] [facility] [address] | | | [place] [address] | + + + | Home Phone [...] | [facility] | | | and [place] | + + + | Organization | [facility] [...] Team Providers + +------+ + | Care Citrix Architect Name | Role | Phone | + [...] PHYSIATRY [address] | MD [address] | | | | | [place], | [place], [place] | | | | | [place] [address] | [address] | | | | | [phone] | | | +--------+ + + + [...]
--- OUTSIDE RECORDS SUMMARY | ~2019-01-30 | XMS | Encounter Summary ---
Demographics + + + | Address | [address] [facility] [address] | | | [place] [address] | + + + | Home Phone [...] | Author | [facility] | | | and [place] | + + + | Organization | [facility] | | | and e[place]rich[place] | + + + | Address | Unknown | + + + | Phone | Unavailable | + + + Support + + +---------+ + | Name | Relationship | Address | Phone | + + +---------+ + | Shasta Yepez | ECON | Unknown | | + + +---------+ + Care Team Providers + +------+ + | Care Inspector Aide Name | Role | Phone | [...] | Leonidas [place] MD | [address] | | | | | pain | [address] | [place], | | | | | Swelling of | [address] | [place] | | | | | right knee | [place], | [address] | | | | | joint | [place] [address] | Phone: | | | | | Procedures | Phone: | [phone] | | | | | MRI Knee | [phone] | Fax: | | | | | Right wo | Fax: | [phone] | | | | | Contrast | [phone] | | +--------+--------+ + + + + Reason for Visit + + + | Reason | Comments | + + + | Neck Pain | | + + + Encounter Details +--------+---------+ + + + | Date | Type | Department | Care Team | Description | +--------+---------+ + + + | 12/02/ | [facility] | [facility] [place] [facility] Leonidas Huddleston, | Bilateral occipital | | 2015 | Visit | PHYSIATRY [address] | [address] | neuralgia (Primary | | | | [place], | [place], [place] | Dx); Chronic daily | | | | [place] [address] | [address] | headache; | | | | [phone] | | Fibromyalgia; Right | | | | | | knee pain; Swelling | | [...] nerve blocks can not be done by [facility] we will request Botox injections for chroni c daily headache. We may taper up Lyrica more in the future. documented in this encounter Progress Notes Leonidas Huddleston MD - 12/02/2014 12:38 PM PDT [facility] [place] PHYSIAT[facility] [address] [facility] [address] OFFICE NOTE LEONIDAS HUDDLESTON JR, MD Patient: LUZ MARIA LOCKWOOD Admitting: MR #: [id number] LOC: PT TYPE: Adm Date: 12/02/2014 : [...] headaches. She has been on gabape ntin chcf. She is not sure that it offers [...] triceps, wrist dorsiflexion, finger abduction and hand customs compliance analyst. DATABASE: No new imaging or laboratory data [...] of our hospital and request application for ryan care. We discussed that if she qualifies, hopefully we can provide this type of p rocedure for her through ryan from the hospital. We discussed that she may or may not q ualify for the [facility] care. If she is approved for [facility] care, we will plan to move for price with greater occipital nerve blocks through [facility] care. If she cannot receive [facility] care, she will return to clinic in the future. We would then consider Botox chemodener vation of facial and neck innervated muscles under needle EMG guidance for the treatment of chronic daily headaches. She has been on gabapentin chcf. She does not believe it is helping. [...] her. If she cannot receive approval for [facility] care, we will consider glen ating [...] Transcribed on 12/02/2014 14:48:31 by viktoria job# [id number] Confirmation #: [id number] cc: WICHO STARKEY MD Leonidas Huddleston MD - 12/02/2014 11:33 AM PDTThis office note has been dictated. Job ID# [id number] signed by Leonidas Huddleston MD at 12/02/2014 [...] Axial proton density fat sat, sagittal | [facility] | | proton density, coronal proton [...] | [facility] | [address] | [place] | [phone] | | [facility] | | [address] | | | - IMAGING | | [...] None. FINDINGS:Frontal weightbearing views of both | [facility] | | knees. A lateral view of [...] + | [facility] | [address] | [place], [place] | [phone] | | [facility] | | [address] | | | - IMAGING | | [...]
--- OUTSIDE RECORDS SUMMARY | ~2019-01-30 | XMS | Encounter Summary ---
Demographics + + + | Address | [address] [facility] | | | [place] [address] | + + + | Home Phone [...] | Author | [facility] | | | and [place] | + + + | Organization | [facility] [...] Providers + +------+ + | Care Assistant Service Manager Name | Role | Phone | + +------+ + | Teena Busch NP | PCP | | + +------+ + Encounter Details +--------+---------+ + + + | Date | Type | Department | Care Team | Description | +--------+---------+ + + + | 03/10/ | Office | [facility] | Sundeep Ba PA | CONSUELO on CPAP (Primary | | 2015 | Visit | SLEEP DISORDER [address] | [address] | Dx) | | | | [address] [place] | [place] | | | | | [place] [address] | [address] | | | | | [phone] | | | +--------+---------+ + + + [...] counseling. Sundeep Ba PA-C cc: Teena Busch [facility] P STdocumented in this encounter Plan of Treatment Not on filedocumented as of this encounter Visit Diagnoses + + | Diagnosis | + + | CONSUELO on CPAP - Primary Obstructive sleep apnea (adult) (pediatric) | + + documented in this encounter
--- OUTSIDE RECORDS SUMMARY | ~2019-01-30 | XMS | Encounter Summary ---
Demographics + + + | Address | [address] [facility] [address] | | | [place] [address] | + + + | Home Phone [...] | [facility] | | | and [place] | + + + | Organization | [facility] [...] Team Providers + +------+ + | Care Wire Repairer Name | Role | Phone | [...] + + | 01/08/ | Office | [facility] [place] | Leonidas Mohr, | Fibromyalgia | | 2015 | Visit | PHYSIATRY [address] | MD [address] | (Primary Dx); | | | | [place], | [place], [place] | Chronic daily | | | | [place] [address] | [address] | headache; Migraine | | | | [phone] | | without aura and | | [...] - 01/09/2016 12:52 PM PDT [facility] [address] [facility] [address] OFFICE NOTE LEONIDAS MOHR JR, MD Patient: LUZ MARIA LOCKWOOD Admitting: MR #: [id number] LOC: PT TYPE: Adm Date: 01/09/2016 : [...] 01/09/2016 12:52:20 Transcribed on 01/10/2016 09:17:55 by [facility] job# [id number] Confirmation #: [id number] cc: ABIMAEL DEVLIN MD Leonidas Mijares MD - 01/09/2016 12:40 PM PDTThis office note has been dictated. Report Confirmation# [id number] signed by Leonidas Mohr MD at 01/09/2016 [...]
--- OUTSIDE RECORDS SUMMARY | ~2019-01-30 | XMS | Encounter Summary ---
Demographics + + + | Address | [address] [facility] | | | [place] [address] | + + + | Home Phone [...] Author | [facility] | | | and [place] | + + + | Organization | [facility] | | | and [place] [...] Providers + +------+ + | Care District Agent Name | Role | Phone | [...] | | | | | positional | [address] | Services [address] | | | | | vertigo | [place], | [address] | | | | | Procedures | [place] [address] | [address] | | | | | 10/25 PEND | Phone: | [place], | | | | | [place] | [phone] | [place] [address] | | | | | | Fax: | Phone: | | | | | | [phone] | [phone] | | | | | | | Fax: | | | | | | | [phone] | +--------+ + + + + + Encounter Details +--------+---------+ + + + | Date | Type | Department | Care Team | Description | +--------+---------+ + + + | 11/27/ | Office | [facility] [place] | Leonidas Huddleston, | Dizziness and | | 2014 | Visit | AUDIOLOGY AND | [address] | giddjimenez (Primary | | | | HEARING AID SERVICES | [place], [place] | Dx) | | | | [address] | [address] | | | | | [address] | | | | | | [place] [address] | Wanrey, [place], [place] | | | | | [phone] | CCC-A [address] | | | | | | ST [address] | | | | | | [place] [address] | | | | | | [phone] | | | | | | | [...]
--- OUTSIDE RECORDS SUMMARY | ~2019-01-30 | XMS | Encounter Summary ---
Demographics + + + | Address | [address] [facility] | | | [place] [address] | + + + | Home Phone [...] Author | [facility] | | | and [place] | + + + | Organization | [facility] | | | and [...] Team Providers + +------+ + | Care [employer] Principal Name | Role | Phone | + [...] | | | | | positional | [address] | [address] [place] | | | | | vertigo | [place], | [address] [place] | | | | | Procedures | [place] [address] | [place], [place] | | | | | 10/25 PEND | Phone: | [phone] | | | | | [place] | [phone] | Phone: | | | | | | Fax: | [phone] | | | | | | [phone] | Fax: | | | | | | | [phone] | +--------+ + + + + + Encounter Details +--------+---------+ + + + | Date | Type | Department | Care Team | Description | +--------+---------+ + + + | 11/27/ | Office | [facility] | Leonidas Mohr, | BPPV (benign | | 2014 | Visit | OTOLARYNGOLOGY [address] | MD [address] | paroxysmal | | | | [address] | [place] | positional vertigo), | | | | [place], [place] | [id number] | bilateral (Primary | | | | [address] | | Dx); Sensorineural | | | | [phone] | Leonidas Mohr MD | hearing loss, | | | | | [address] [place] | bilateral | | | | | [address] [facility] [place] | | | | | | [address] | | | | | | | [...] encounter Progress Notes Leonidas Morh MD - 11/27/2014 2:23 PM PDT [facility] OTOLARYNGOLOGY [address] [facility] [address] OFFICE NOTE LEONIDAS MOHR MD Patient: LUZ MARIA LOCKWOOD Admitting: MR #: [id number] LOC: PT TYPE: Adm Date: 11/27/2014 : [...] were normal A-shaped tympanograms. The patient's speech guard dance hall threshold is 25 dB bilaterally. Speech discrimination [...] 14:23:51 Transcribed on 11/27/2014 14:43:01 by job# [id number] Confirmation #: [id number] cc: EPI STARKEY MD [facility], Leonidas Campos MD - 11/27/2014 2:19 PM PDTSee dictation #[id number] signed by Leonidas Mohr MD at 11/27/2014 [...]
--- OUTSIDE RECORDS SUMMARY | ~2019-01-30 | XMS | Encounter Summary ---
Demographics + + + | Address | [address] [facility] | | | [place] [address] | + + + | Home Phone [...] Team Providers + +------+ + | Care Cleaning Laborer Name | Role | Phone | [...] | Leonidas Irving MD | [address] | | | | | pain | [address] | [place], | | | | | Swelling of | [address] | [place] | | | | | right knee | [place], | [address] | | | | | joint | [place] [address] | Phone: | | | | | Procedures | Phone: | [phone] | | | | | MRI Knee | [phone] | Fax: | | | | | Right wo | Fax: | [phone] | | | | | Contrast | [phone] | | +--------+--------+ + + + + [...] | Leonidas Irving MD | [address] | | | | | pain | [address] | [place], | | | | | Swelling of | [address] | [place] | | | | | right knee | [place], | [address] | | | | | joint | [place] [address] | Phone: | | | | | Procedures | Phone: | [phone] | | | | | MRI Knee | [phone] | Fax: | | | | | Right wo | Fax: | [phone] | | | | | Contrast | [phone] | | +--------+--------+ + + + + Encounter Details +--------+ + + + + | Date | Type | Department | Care Team | Description | +--------+ + + + + | 12/10/ | Hospital | [facility] | Leonidas Huddleston, | Right knee pain; | | 2014 | Encounter | MED CTR MRI [address] | MD [address] | Swelling of right | | | | [address] [place], | [place], [place] | knee joint | | | | [place] [address] | [address] | | | | | [phone] | | | +--------+ + + + [...] right knee swelling. COMPARISON: Right knee | [facility] | | x-ray 12/04/2014. PROTOCOL: [...] + + | Performing | Address | City/State/[facility] | Phone Number | | Organization | | | | + + + + + | [address] | [address] | [place] | [phone] | | [facility] | | [address] | | | - IMAGING | | [...]
--- OUTSIDE RECORDS SUMMARY | ~2019-01-30 | XMS | Encounter Summary ---
Demographics + + + | Address | [address] [facility] | | | [place] [address] | + + + | Home Phone [...] [facility] | | | and [place] | + + + | Organization | [facility] | [...] Team Providers + +------+ + | Care Brass Roller Name | Role | Phone | [...] [place] | Leonidas Huddleston, | Medication Prior | | 2016 | | PHYSIATRY [address] | MD [address] | Authorization | | | | [place], | [place], [place] | | | | | [place] [address] | [address] | | | | | [phone] | | | +--------+ + + + [...]
--- OUTSIDE RECORDS SUMMARY | ~2019-01-30 | XMS | Encounter Summary ---
Demographics + + + | Address | [address] [facility] | | | [place] [address] | + + + | Home Phone [...] Author | [facility] | | | and [place] | + + + | Organization | [facility] | | | [...] Providers + +------+ + | Care Pipe Chipper Name | Role | Phone | + [...] + + | 12/03/ | Office | [facility] | Sundeep Ba PA | CONSUELO on CPAP (Primary | | 2016 | Visit | SLEEP DISORDER [address] | [address] | Dx) | | | | [address] [place] | [place] | | | | | [place] [address] | [address] | | | | | [phone] | | | +--------+---------+ + + + [...] AirSense 10 with nasal mask obtained from: [employer] in [place] pressure: 9-20 cm (lowered to 4-8 cm [...] past. This has improved considerably during the month. Her granddaughter is living with her [...] Exam Assessment: Problem #1: OBSTRUCTIVE SLEEP APNEA (FAE93-C22.33) This is controlled with CPAP. She continues [...] months, sooner prn. Fifteen minutes were spent etbo-xy-ophm, w ith the majority of time spent [...]
--- OUTSIDE RECORDS SUMMARY | ~2019-01-30 | XMS | Encounter Summary ---
Demographics + + + | Address | [address] [facility] | | | [place] [address] | + + + | Home Phone [...] | [facility] | | | and [place] | + + + | Organization | [facility] | | | and [place] [...] Team Providers + +------+ + | Care Rubber Extrusion Machine Operator Name | Role | Phone | + +------+ + | Abimael Devlin MD | PCP | | + +------+ + Encounter Details +--------+ + + + + | Date | Type | Department | Care Team | Description | +--------+ + + + + | 04/03/ | Orders Only | [facility] | Max Gillette, | | | 2014 | | CARDIOLOGY CHEN | MD [address] | | | | | [address] | [place] | | | | | SY RAO | [place] [address] | | | | | [place] | [phone] | | | | | [address] | | | | | | [phone] | | | +--------+ + + + [...] Performed At | + + + | [facility] CARDIOLOGY Nuclear Lexiscan Stress Test | | [...] Almazan Conversion - 11/03/2018 12:23 PM PDT [facility] | | Lexiscan Stress Test INDICATION [...]
--- OUTSIDE RECORDS SUMMARY | ~2019-01-30 | XMS | Encounter Summary ---
Demographics + + + | Address | [address] [facility] | | | [place] [address] | + + + | Home Phone [...] | Author | [facility] | | | and [place] | + + + | Organization | [facility] | [...] Team Providers + +------+ + | Care Protective Signal Operations Supervisor Name | Role | Phone | [...] | | | | | | | CO | | | | | | | COLONOSCOPY | | | | | | | FLX DX | | | | | | | W/COLLJ SPEC | | | | | | | WHEN PFRMD | | | | | | | CO | | | | | | | COLONOSCOPY | | | | | | | W/BIOPSY | | | | | | | SINGLE/MULTI | | | | | | | PLE CO | | | | | | | COLSC FLX | | | | | | | W/RMVL OF | | | | | | | TUMOR POLYP | | | | | | | LESION SNARE | | | | | | | TQ CO | | | | | | [...] + + | 10/14/ | Surgery | [facility] | Patrick England MD | COLONOSCOPY | | 2017 | | MED CTR MP INTRA OP | [address], [place] | | | | | [address] | [address] [place] | | | | | [place], [place] | [address] | | | | | [address] | | | | | | [phone] | | | +--------+---------+ + + + [...] needed, you may be told to take cdrv-ngl-tgktpyi stool softeners. To help relieve pain, antispasmodic [...] needed in some people with severe symptoms. [place] to colon health Diverticulitis occurs when the pouches become infected or inflamed. Help keep your colon healthy with a diet that includes plenty of high-fiber fruits, vegetab les, and whole grains. Drink plenty of liquids like water and juice. Maintain a healthy life style including regular exercise, stress management, and adequate rest and sleep. Date Last Reviewed: 09/12/201519998740-3354 [employer]. [address] [place] [address], [place] [address]. All righ ts reserved. This information is [...] 10/14/2016 | PROVATION | | 11:37 AMMRN: [id number] #: [id number] of : | | | 5Admit Type: AmbulatoryAge: 61Room: [facility] 01Gender: FemaleNote | | | Status: FinalizedAttending MD: Patrick England , [facility]cedure: | | | ColonoscopyIndications: Abdominal pain in the left lower | | | quadrant, Abnormal CT of the GI | | | tractProviders: Patrick England MD, Rebekah Balderrama, | | | RN, Lisandra Haddad, Radio Station Manager, | | | Erasmo Herrera MD [...] | | | the anesthesiologist and the poultry service technician in the endoscopy suite. | | [...] In: 11:50:23 AMScope Out: 12:06:[address] [facility] | | | [facility], [address] [place] [address] | | | [phone] | | | - Resume previous diet today. | | | - Continue present medications. | | | - Repeat colonoscopy in 10 years for screening purposes. | | | - Return to primary care physician as previously scheduled. | | | - Telephone GI clinic if symptomatic. | | |Patrick Enlgand MD | | |10/14/2016 12:15:18 PM | | |This report has been signed electronically. | | |Number of Addenda: 0 | | |Note Initiated On: 10/14/2016 11:37 AM | | |Total Procedure Duration: 0 hours 16 minutes 1 second | | |Scope In: 11:50:23 AM | | |Scope Out: 12:06:24 PM | | | [facility], [address] [place] [address] | | | [address] | | + + -+ + +---------+ [...] [address] | [place] | [phone] | | [facility] | | [address] | | | - LABORATORY | | [...] ONCE | | | PRN, Nausea, Starting [facility] 10/14/16 | | | at 1314, For 1 dose, | | | Recovery/Phase I | | + +---+ | | | + +---+ documented in this encounter
--- OUTSIDE RECORDS SUMMARY | ~2019-01-30 | XMS | Encounter Summary ---
Demographics + + + | Address | [address] [facility] | | | [place] [address] | + + + | Home Phone | | + + + | Preferred Language | Unknown | + + + | Marital Status | | + + + | Spiritism Affiliation | 1013 | + + + | Race | Unknown | + + + | Ethnic Group | Unknown | + + + Author + + + | Author | [facility] | | | and [place] | + + + | Organization | [facility] [...] Providers + +------+ + | Care Academic Support Coordinator Name | Role | Phone | [...] Rehabilitatio | Fibromyalgia | [address] | [place] | | | | n | | [address] | [place], | | | | | Cervicalgia | [place], | [place] [address] | | | | | Cervical | [place] [address] | Phone: | | | | | dystonia | Phone: | [phone] | | | | | History of | [phone] | Fax: | | | | | cervical | Fax: | [phone] | | | | | spinal | [phone] | | | | | | surgery [...] | | | Rehabilitatio | neuralgia | [employer] [address] | | | | n | neck pain | [address] | [place], | | | | | follow up | [address] | [place] [address] | | | | | | [place], | Phone: | | | | | | [place] [address] | [phone] | | | | | | Phone: | Fax: | | | | | | [phone] | [phone] | | | | | | Fax: | | | | | | | [phone] | | +--------+--------+ + + + + Encounter Details +--------+---------+ + + + | Date | Type | Department | Care Team | Description | +--------+---------+ + + + | 07/31/ | Office | [facility] [place] | Leonidas Mohr, | Chronic daily | | 2015 | Visit | PHYSIATRY [address] | MD [address] | headache (Primary | | | | [place], | [place], [place] | Dx); Migraine | | | | [place] [address] | [address] | without aura and | | | | [phone] | | without status | | | [...] physical therapy within one week, please contact [facility]. Once you have completed physical therapy please continue the home exercise progr am as outline by physical therapy, indefinitely. Return to the clinic in 3 months. documented in this encounter Progress Notes Leonidas Mohr MD - 08/01/2015 10:48 AM PDT [facility] PHYSIATRY [address] [facility] [address] OFFICE NOTE LEONIDAS MOHR JR, MD Patient: LUZ MARIA LOCKWOOD Admitting: MR #: [id number] LOC: PT TYPE: Adm Date: 08/01/2015 : [...] ago. Since running out of her L ABBica, her headaches have been worse. She has [...] Transcribed on 08/01/2015 11:20:21 by viktoria job# [id number] Confirmation #: [id number] cc: JANELLE BUSCH NP [facility], Leonidas Irving MD - 08/01/2015 10:40 AM PDTThis office note has been dictated. Job ID# [id number] signed by Leonidas oMhr MD at 08/01/2015 10:48 AM PDTdocumented in [...]
--- OUTSIDE RECORDS SUMMARY | ~2019-01-30 | XMS | Encounter Summary ---
Demographics + + + | Address | [address] [facility] | | | [place] [address] | + + + | Home Phone [...] | [facility] | | | and [place] | + + + | Organization | [facility] | [...] Providers + +------+ + | Care System Administration Advisor Name | Role | Phone | [...] + + | 12/28/ | Telephone | [facility] | Sundeep Ba PA | Apnea | | 2014 | | SLEEP DISORDER [address] | [address] | | | | | [address] [place] | [place] | | | | | [place] [address] | [address] | | | | | [phone] | | | +--------+ + + + [...]
--- OUTSIDE RECORDS SUMMARY | ~2019-01-30 | XMS | Encounter Summary ---
Demographics + + + | Address | [address] [facility] | | | [place] [address] | + + + | Home Phone [...] Author | [facility] | | | and [place] | + + + | Organization | [facility] | [...] Team Providers + +------+ + | Care Patient Svcs Mgr Name | Role | Phone | + [...] | SLEEP DISORDER [address] | [address] | Dx) | | | | [address] [place] | [place] | | | | | [place] [address] | [address] | | | | | [phone] | | | +--------+---------+ + + + [...] in this encounter Progress Notes Earnestine Haley, Casualty Claim Adjuster - 07/28/2017 2:00 PM PDTFormatting of this note might b e different from the original. 07/28/17 1300 Tilley Depression Inventory-II Depression Score 34 - Severe depression Insomnia Severity Index Insomnia Severity Index 24 [place] Sleepiness Scale Sitting and reading 2 Watching [...] AirSense 10 with nasal mask obtained from: [employer] in [place] pressure: 9-20 cm (lowered to 4-8 cm [...] Exam Assessment: Problem #1: OBSTRUCTIVE SLEEP APNEA (BYZ91-X74.33) This is controlled with CPAP, but she hasn't used it in the last year. Plan: 1. She is to continue with CPAP indefinitely. 2. She is to work toward wearing her CPAP 100% of the time she is asleep. I will follow up again in 1 month, sooner prn. Fifteen minutes were spent hzrt-pn-uvdc, wi th the majority of time spent [...]
--- OUTSIDE RECORDS SUMMARY | ~2019-01-30 | XMS | Encounter Summary ---
Demographics + + + | Address | [address] [facility] | | | [place] [address] | + + + | Home Phone [...] | [facility] | | | and [place] | + + + | Organization | [facility] | [...] Team Providers + +------+ + | Care Pediatric Audiologist Name | Role | Phone | + +------+ + | Teena Busch SEASONER HAND | PCP | | + +------+ + [...] | occipital | [address] | | | | n | neuralgia | [address] | [place], | | | | | Procedures | [place], | [place] [address] | | | | | [place] INJECT | [place] [address] | Phone: | | | | | NERV | Phone: | [phone] | | | | | GREG[place] MILLER | [phone] | Fax: | | | | | [place] | Fax: | [phone] | | | | | [place] | [phone] | | | | | | E [...] of medial | MD Erasmo | [address] | | | | n | meniscus, | [address] | [place], | | | | | current | [place] | [place] [address] | | | | | injury, | [place], [place] | Phone: | | | | | right knee, | [address] | [phone] | | | | | subsequent | Phone: | Fax: | | | | | encounter | [phone] | [phone] | | | | | review | Fax: | | | | | | response to | [phone] | | | | | | lyrica, [...] + + | 01/15/ | Office | [facility] | Leonidas Mohr, | Chronic daily | | 2014 | Visit | PHYSIATRY [address] | [address] | headache (Primary | | | | [place], | [place], [place] | Dx); Bilateral | | | | [place] [address] | [address] | occipital neuralgia; | | | | [phone] | | Migraine without | | | [...] MD - 01/15/2015 4:06 PM PST [facility] PHYSIATRY [address] [place] [facility] [address] OFFICE NOTE LEONIDAS MOHR JR, MD Patient: LUZ MARIA LOCKWOOD Admitting: MR #: [id number] LOC: PT TYPE: Adm Date: 01/15/2015 : [...] greater occipital nerve blocks. She has requested [facility] receive this procedure. She indicates that [facility] She would like to move [...] 01/15/2015 16:06:49 Transcribed on 01/16/2015 07:44:19 by [facility] job# [id number] Confirmation #: [id number] signed by Leonidas Mohr MD at 01/16/2015 1:00 PM [facility] - 01/15/2015 12:28 PM PSTThis office note has been dictated. Job ID# [id number] signed by Leonidas Mohr MD at 01/15/2015 [...]
--- OUTSIDE RECORDS SUMMARY | ~2019-01-30 | XMS | Encounter Summary ---
Demographics + + + | Address | [address] [facility] | | | [place] [address] | + + + | Home Phone [...] Author | [facility] | | | and [place] | + + + | Organization | [facility] | [...] Team Providers + +------+ + | Care Multimedia Author Name | Role | Phone | + [...] | SR | | | | | [phone] | | | +--------+ + + + [...]
--- OUTSIDE RECORDS SUMMARY | ~2019-01-30 | XMS | Encounter Summary ---
Demographics + + + | Address | [address] [facility] | | | [place] [address] | + + + | Home Phone [...] + | Author | [facility] | | | and [place] | + + + | Organization | [facility] | | [...] Team Providers + +------+ + | Care Hardware Designer Name | Role | Phone | + [...] + + | 10/ | Telephone | [facility] | Katy Huddlestonterrance [place], | Other | | 2015 | | PHYSIATRY [address] | MD [address] | | | | | [place], | [place], [place] | | | | | [place] [address] | [address] | | | | | [phone] | | | +--------+ + + + [...]
--- OUTSIDE RECORDS SUMMARY | ~2019-01-30 | XMS | Encounter Summary ---
Demographics + + + | Address | [address] [facility] | | | [place] [address] | + + + | Home Phone [...] | Author | [facility] | | | and [place] | + + + | Organization | [facility] | | | and [place] [...] Team Providers + +------+ + | Care Soil Science Professor Name | Role | Phone | + [...] | occipital | [address] | [address] | | | | n | neuralgia | [address] | [place], | | | | | Procedures | [place], | [place] [address] | | | | | [place] INJECT | [place] [address] | Phone: | | | | | NERV | Phone: | [phone] | | | | | GREGOROI MILLER | [phone] | Fax: | | | | | [place] | Fax: | [phone] | | | | | BETAM[place] | [phone] | | | | | | E [...] | | | | | positional | [address] | [address] | | | | | vertigo | [place], | [address] | | | | | Procedures | [place] [address] | [address] | | | | | 8/14 PEND | Phone: | [place], | | | | | [place] | [phone] | [place] [address] | | | | | | Fax: | Phone: | | | | | | [phone] | [phone] | | | | | | | Fax: | | | | | | | [phone] | +--------+ + + + + + [...] | | | | | positional | [address] | [address] [place] | | | | | vertigo | [place], | [address] [place] | | | | | Procedures | [place] [address] | [place], [place] | | | | | [address] PEND | Phone: | [address] | | | | | [place] | [phone] | Phone: | | | | | | Fax: | [phone] | | | | | | [phone] | Fax: | | | | | | | [phone] | +--------+ + + + + + [...] | PHYSIATRY [address] | [address] | Dx); Bilateral | | | | [place], | [place], [place] | occipital neuralgia; | | | | [place] [address] | [address] | Chronic daily | | | | [phone] | | headache; | | | | [...] MD - 10/16/2014 2:13 PM PDT [facility] PHYSIATRY [address] [facility] [address] OFFICE NOTE LEONIDAS MOHR JR, MD Patient: LUZ MARIA LOCKWOOD Admitting: MR #: [id number] LOC: PT TYPE: Adm Date: 10/16/2014 : [...] Transcribed on 10/16/2014 19:17:28 by hailee job# [id number] Confirmation #: [id number] cc: WICHO STARKEY MD Leonidas Mohr MD - 10/16/2014 1:33 PM PDTThis office note has been dictated. Job ID# [id number] signed by Leon[place] Mohr MD at 10/16/2014 [...]
--- OUTSIDE RECORDS SUMMARY | ~2019-01-30 | XMS | Encounter Summary ---
Demographics + + + | Address | [address] [facility] [address] | | | [place] [address] | + + + | Home Phone [...] Author | [facility] | | | and [place] | + + + | Organization | [facility] | | [...] Providers + +------+ + | Care System Integration Engineer Name | Role | Phone | + +------+ + PCP | Unavailable | + +------+ + Encounter Details +--------+ + + + + | Date | Type | Department | Care Team | Description | +--------+ + + + + | 01/08/ | [facility] | [facility] | | | | 2012 | Encounter | MED CTR XRAY [address] | | | | | | [place] | | | | | | [place] [address] | | | | | | [phone] | | | +--------+ + + + [...] Performed At | + + + | [facility] | [place] | | Department [address] | [facility] | | [ rep ct street[address]] [ rep ct [facility] | | st zip] Signed | - IMAGING | | | | | Patient Name: LUZ MARIA LOCKWOOD Rojelio | | | Physician: AVEL : 1955 Age: 57 Sex: F Unit | | | #: [id number] Exam Date: 01/08/13 Location: | | | [facility] Report #: [id number] Page: | | | %(RAD)RES..mtdd.print.filter("pg") of %(RAD) | | | RES..mtdd.print.filter("tpg") | | | | | | Accession Number: [id number] | | | MRI LUMBAR SPINE CLINICAL [...] Transcribed Date/Time: 01/08/2013 17:54 | | | Metal Cleaner: <<Signature on File>> | | | | | | Patrick Olivares MD01/09/13 3862 <Electronically signed by Patrick Cox | | | Marshall WINTERS> Patrick Olivares MD 01/08/13 4610 | | | Metal Cleaner: [employer]cloud [id number]/28/13 3648 | | | MD Trevor Blue MD | | + + + + + + + + | Performing | Address | City/[facility]/Zipcode | Phone Number | | Organization | | | | + + + + + | [facility] | [address] | [place] | [phone] | | [facility] | | [address] | | | - IMAGING | | | | + + + + + documented in this encounter Visit Diagnoses Not on filedocumented in this encounter
--- OUTSIDE RECORDS SUMMARY | ~2019-01-30 | XMS | Encounter Summary ---
Demographics + + + | Address | [address] [facility] | | | [place] [address] | + + + | Home Phone [...] | Author | [facility] | | | and [place] | + + + | Organization | [facility] [...] Team Providers + +------+ + | Care Database Management Specialist Name | Role | Phone | + +------+ + PCP | Unavailable | + +------+ + Encounter Details +--------+ + + + + | Date | Type | Department | Care Team | Description | +--------+ + + + + | 04/26/ | Hospital | [facility] | Conversion | Pain | | 2013 | Encounter | CONVERSION DEP [address] | Transaction, | | | | | [place] | Provider Unknown | | | | | [place] | | | | | | [address] | (Fax) | | | | | [phone] | | | +--------+ + + + [...]
--- OUTSIDE RECORDS SUMMARY | ~2019-01-30 | XMS | Encounter Summary ---
Demographics + + + | Address | [address] [facility] [address] | | | [place] [address] | + + + | Home Phone | | + + + | Preferred Language | Unknown | + + + | Marital Status | | + + + | Confucianism Affiliation | 1013 | + + + | Race | Unknown | + + + | Ethnic Group | Unknown | + + + Author + + + | Author | [facility] | | | and [place] | + + + | Organization | [facility] | | | and [...] Team Providers + +------+ + | Care Process Control Programmer Name | Role | Phone | [...] | | | | CENTER [address] | [place], [place] | (Primary Dx); | | | | [place], [place] | [address] | Diverticulitis of | | | | [address] | | large intestine | | | | [phone] | | without perforation | | | [...] sent through Care Everywhere.DIVERTICULITIS, DISCHARGE INSTRUCTIONS FOR (QATARI)documented in this encounter Medications at Time of [...] [address] | [place] | [phone] | | [facility] | | [address] | | | - LABORATORY | | [...] + | [facility] | [address] | [place] | [phone] | | [facility] | | [address] | | | - LABORATORY | | [...] + | [facility] | [address] | [place] | [phone] | | [facility] | | [address] | | | - LABORATORY | | [...] + | [facility] | [address] | [place] | [phone] | | [facility] | | [address] | | | - LABORATORY | | [...] [address] | [place] | [phone] | | [facility] | | [address] | | | - LABORATORY | | [...] 15 | 7 - 18 mg/dL | [facility] | | | | | | [facility] | | | | | | MEDICAL | | | | | | CENTER - | | | | | | LABORATORY | | + + + + + + | Creatinine | 0.65 | 0.60 - 1.30 | [facility] | | | | | mg/dL | [facility] | | | | | | MEDICAL | | | | | | CENTER - | | | | | | LABORATORY | | + + + + + + | eGFR if not | >60Comment: GLOMERULAR | >=60 | [facility] | | | | FILTRATION | mL/min/1.73m2 | [facility] | | | [place] | RATE,ESTIMATED | | MEDICAL | | | | mL/min/1.40n8Psvu than | | CENTER - | | [...] [address] | [place] | [phone] | | [facility] | | [address] | | | - LABORATORY | | [...] [address] | [place] | [phone] | | [facility] | | [address] | | | - LABORATORY | | [...]
--- OUTSIDE RECORDS SUMMARY | ~2019-01-30 | XMS | Encounter Summary ---
Demographics + + + | Address | [address] [facility] | | | [place] [address] | + + + | Home Phone [...] Author | [facility] | | | and [place] | + + + | Organization | [facility] | | [...] Team Providers + +------+ + | Care Transportation Supervisor Name | Role | Phone | [...] | | | | CENTER [address] | [address] | (Primary Dx) | | | | [place], [place] | [place], [place] | | | | | [address] | [address] | | | | | [phone] | | | +--------+ + + + [...] + + | Performing | Address | City/State[facility] | Phone Number | | [...]
--- OUTSIDE RECORDS SUMMARY | ~2019-01-30 | XMS | Encounter Summary ---
Demographics + + + | Address | [address] [facility] [address] | | | [place] [address] | + + + | Home Phone | | + + + | Preferred Language | Unknown | + + + | Marital Status | | + + + | Congregation Affiliation | 1013 | + + + | Race | Unknown | + + + | Ethnic Group | Unknown | + + + Author + + + | Author | [facility] | | | and [place] | + + + | Organization | [facility] | | | and [...] Team Providers + +------+ + | Care Canvas Shrinker Name | Role | Phone | + [...] + + | 01/28/ | Office | [facility] | Andre Ugarte | CONSUELO (obstructive | | 2015 | Visit | SLEEP DISORDER [address] | MD Jan [address] | sleep apnea) | | | | [address] [place] | [address] [place] | (Primary Dx) | | | | [place] [address] | [place] [address] | | | | | [phone] | [phone] | | | | | | | [...] to correctly use your CPAP. The r medicare sales representative will be able to help you: Use the CPAP correctly Troubleshoot any problems that come up Learn to clean and maintain the device Adjust to regular use of the CPAP [id number] The [employer]. [address] [place] [address]. All righ ts reserved. This information is [...] Polysomnography under "Media" se ction in the [facility] EMR. Definitions (The AASM Manual for the [...]
--- OUTSIDE RECORDS SUMMARY | ~2019-01-30 | XMS | Encounter Summary ---
Demographics + + + | Address | [address] [facility] | | | [place] [address] | + + + | Home Phone [...] | Author | [facility] | | | and [place] | + + + | Organization | [facility] | | | and [...] Team Providers + +------+ + | Care Branch Service Associate Name | Role | Phone | + +------+ + | Teena Busch RESOLUTION AGENT | PCP | | + +------+ + [...] | occipital | [address] | | | | n | neuralgia | [address] | [place], | | | | | Procedures | [place], | [place] [address] | | | | | [place] IN[place] | [place] [address] | Phone: | | | | | NERV | Phone: | [phone] | | | | | GREGORIO MILLER | [phone] | Fax: | | | | | [place] | Fax: | [phone] | | | | | BETAMETHASON | [phone] | | | | | | E [...] of medial | MD Erasmo | [address] | | | | n | meniscus, | [address] | [place], | | | | | current | [place] | [place] [address] | | | | | injury, | [place], [place] | Phone: | | | | | right knee, | [address] | [phone] | | | | | subsequent | Phone: | Fax: | | | | | encounter | [phone] | [phone] | | | | | review | Fax: | | | | | | response to | [phone] | | | | | | lyrica, [...] + + | 01/15/ | Office | [facility] | Leonidas Mohr, | Chronic daily | | 2014 | Visit | PHYSIATRY [address] | [address] | headache (Primary | | | | [address], | [place], [place] | Dx); Bilateral | | | | [place] [address] | [address] | occipital neuralgia; | | | | [phone] | | Migraine without | | | [...] CENTER PHYSIATRY [address] [place] [facility] [address] OFFICE NOTE LEONIDAS MOHR JR, MD Patient: LUZ MARIA LOCKWOOD Admitting: MR #: [id number] LOC: PT TYPE: Adm Date: 01/15/2015 : [...] greater occipital nerve blocks. She has requested [facility] to receive this procedure. She indicates that recently [facility]. She would like [...] 01/15/2015 16:06:49 Transcribed on 01/16/2015 07:44:19 by [facility] job# [id number] Confirmation #: [id number] signed by Leonidas Mohr MD at 01/16/2015 1:00 PM [facility] - 01/15/2015 12:28 PM PSTThis office note has been dictated. Job ID# [id number] signed by Leonidas Mohr MD at 01/15/2015 [...]
--- OUTSIDE RECORDS SUMMARY | ~2019-01-30 | XMS | Encounter Summary ---
Demographics + + + | Address | [address] [facility] | | | [place] [address] | + + + | Home Phone [...] Author | [facility] | | | and [place] | + + + | Organization | [facility] | | | and [place] [...] Team Providers + +------+ + | Care Electric Meter Repairer Helper Name | Role | Phone | [...] + + | 03/09/ | Telephone | [facility] | Andre Caballero | Other | | 2017 | | ORTHOPEDIC SURGERY | MD Rojelio [address] [facility] | | | | | [address] [facility] | [place] | | | | | [place] | [address] | | | | | [address] | | | | | | [phone] | | | +--------+ + + + [...]
--- OUTSIDE RECORDS SUMMARY | ~2019-01-30 | XMS | Encounter Summary ---
Demographics + + + | Address | [address] [facility] [address] | | | [place] [address] | + + + | Home Phone [...] Author | [facility] | | | and [place] | + + + | Organization | [facility] | | [...] Providers + +------+ + | Care Sheet Sorter Name | Role | Phone | + [...] | SLEEP DISORDER [address] | [address] | Dx) | | | | [address] [place] | [place] | | | | | [place] [address] | [address] | | | | | [phone] | | | +--------+---------+ + + + [...] AirSense 10 Mask type: nasal mask DME: [place] in [place] pressure: 9-20 cm (lowered to 4-8 cm [...] Exam Assessment: Problem #1: OBSTRUCTIVE SLEEP APNEA ([id number]-H41.33) This is controlled with CPAP. She improved her usage with her CPAP, but is still inconsist ent with it. Plan: 1. She is to continue with CPAP indefinitely. 2. She is to work toward wearing her CPAP 100% of the time she is asleep. I will follow up again in 2 months, sooner prn. Fifteen minutes were spent [id number]-xd-olla, w ith the majority of time spent [...]
--- OUTSIDE RECORDS SUMMARY | ~2019-01-30 | XMS | Encounter Summary ---
Demographics + + + | Address | [address] [facility] | | | [place] [address] | + + + | Home Phone [...] | Author | [facility] | | | and [place] | + + + | Organization | [facility] | | | and [...] Team Providers + +------+ + | Care Research Technologist Name | Role | Phone | [...] | | | | [address] | [place] [address] | (non-ST elevated | | 11/11/ | | [place], [place] | [phone] | myocardial | | 2011 | | [address] | | infarction) ([facility]); | | | | [phone] | | Hyponatremia; | | | | | | Bipolar disorder, | | | | | | unspecified ([facility]); | | | | | | Hyposmolality and/or | | | | | | hyponatremia; | | | | | | Leucocytosis; | | | | | | Paranoid | | | | | | schizophrenia, | | | | | | chronic condition | | | | | | ([facility]); Seizure | | | | | | disorder ([facility]) | +--------+ + + + [...] Summaries by Marli Mejia RN at 11/12/11 7810 Author: Marli Mejia RN Service: (none) Author Type: Registered Nurse Filed: 11/12/11 5871 Date of Service: 11/12/111305 Status: Signed Inclusion Special Educator: Marli Mejia RN (Registered Nurse) Pt provided [...] Summaries by Rhoda Simpson MD at 11/12/11 125 Author: Rhoda Simpson MD Service: (none) Author Type: Physician Filed: 11/18/11926 Date of Service: 11/12/11 6866 Status: Signed Inclusion Special Educator: Rhoda Simpson MD (Physician) [facility] Service: Hospitalist Discharge Summary Date of [...] methamphetami ne use, who was transferred from [facility] after having a seizure. Please refer t o complete H&P by Dr Singleton for further details. 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 Patient reportedly had sei zures and palpitations [...] 11/12/2011 EGFR >60 11/12/2011 PLAN D/C to [facility]. Disposition: [facility] Condition: Stable Code Status: Full Code Discharge [...] Date of Service: 11/12/11 1340 Status: Signed Inclusion Special Educator: Marli Mejia RN (Registered Nurse) Security brought pt belongings up to pt. [facility] called and they have her set of keys. P t notified. oster Harriett MSW - 11/12/2011 1:01 PM PDT Progress Notes by BERNARD Hugo at 11/12/11 1301 Author: BERNARD Hugo Service: (none) Author Type: Multimedia Project Manager Filed: 11/12/11 1309 Date of Service: 11/12/11 1301 Status: Signed Inclusion Special Educator: BERNARD Hugo (Multimedia Project Manager) Patient reports she lives in a [facility], has [place] for transportation. Pt disc harging back to [facility] this afternoon. CM called [facility] transportation to [facility], provided pt room # address and this CM's contact number. [employer] stated they would send transport as soon as they could find someone. CM alerted RN of dcp approxim ate time. No other anticipated dc needs at this time. onversion Transact ion, Provider Unknown - 11/12/2011 9:57 AM PDTFormatting of this note might be different fr om the original. Progress Notes by Melissa Estrella at 11/12/11956 Author: Melissa Estrella Service: (none) Author Type: Program Director Scouting Filed: 11/12/11958 Date of Service: 11/12/11956 Status: Signed Inclusion Special Educator: Melissa Estrella (Program Director Scouting) Pt didn't remember requesting a visit. Wanted prayer for her health. Shared she has difficu lty forgiving herself. Wants additional neck band setter visits while she is in the hospital. onver [place] Transaction, Provider Unknown - 11/11/2011 4:26 AM PDT Progress Notes by Gelacio Bhandari RPH at 11/11/11425 Author: Gelacio Bhandari RPH Service: (none) Author Type: Pharmacist Filed: 11/11/11425 Date of Service: 11/11/11425 Status: Signed Inclusion Special Educator: Gelacio Bhandari RPH (Pharmacist) Note ccl 115ml/min [...] + + documented in this encounter Results MI Myocardial Perfusion Mult SPECT (11/12/2011 9:59 AM PDT) + + | Specimen | + + | | + + + + + | Narrative | Performed At | + + + | LUZ MARIA LOCKWOOD MI MYOCARDIAL PERFUSION SPECT - STRESS AND REST [...] + | This procedure was resulted in [place] (the cardiology system). Please | | | see the Media tab in Chart Review to see the result for this | | | procedure. | | + + + + + | Procedure Note | + + | Ever Almazan Conversion - 11/04/2018 6:12 AM PDT This procedure was resulted in [place] | | (the cardiology system). Please seethe [...]
--- OUTSIDE RECORDS SUMMARY | ~2019-01-30 | XMS | Encounter Summary ---
Demographics + + + | Address | [address] [facility] | | | [place] [address] | + + + | Home Phone [...] Author | [facility] | | | and [place] | + + + | Organization | [facility] | | | and [...] Team Providers + +------+ + | Care Middle School Pe Teacher Name | Role | Phone | [...] | +--------+ + + + + | 07// | Telephone | [facility] | Patrick England MD | Other | | 2016 | | GASTROENTEROLOGY | [address], [place] | | | | | [address] [place] | [address] [place], [place] | | | | | [address] [place], [place] | [address] | | | | | [address] | | | | | | [phone] | | | +--------+ + + + [...]
--- OUTSIDE RECORDS SUMMARY | ~2019-01-30 | XMS | Encounter Summary ---
Demographics + + + | Address | [address] [facility] [address] | | | [place] [address] | + + + | Home Phone [...] | [facility] | | | and [place] | + + + | Organization | [facility] | [...] Team Providers + +------+ + | Care Loan Consultant Name | Role | Phone | [...] + | 01/12/ | Telephone | [facility] | Leonidas Huddleston, | Other | | 2016 | | PHYSIATRY [address] | [address] | (Pharmacy/Medication | | | | [place], | [place], [place] | verification) | | | | [place] [address] | [id number] | | | | | [phone] | | | +--------+ + + + [...]
--- OUTSIDE RECORDS SUMMARY | ~2019-01-30 | XMS | Encounter Summary ---
Demographics + + + | Address | [address] [facility] | | | [place] [address] | + + + | Home Phone [...] | Author | [facility] | | | and [place] | + + + | Organization | [facility] | [...] Team Providers + +------+ + | Care Applied Psychology Teacher Name | Role | Phone | [...] + + | 10/14/ | Hospital | [facility] | Patrick England MD | Abnormal abdominal | | 2017 | Encounter | MED CTR MP INTRA OP | [address], [place] | CT scan (Primary | | | | [address] | [address] [place], [place] | Dx); Diverticulosis | | | | [place], [place] | [address] | of large intestine | | | | [address] | | without hemorrhage | | | | [phone] | | | +--------+ + + + [...] needed, you may be told to take eomr-iad-tpvvzzq stool softeners. To help relieve pain, antispasmodic [...] needed in some people with severe symptoms. Maben to colon health Diverticulitis occurs when the pouches become infected or inflamed. Help keep your colon healthy with a diet that includes plenty of high-fiber fruits, vegetab les, and whole grains. Drink plenty of liquids like water and juice. Maintain a healthy life style including regular exercise, stress management, and adequate rest and sleep. Date Last Reviewed: 09/12/201519991277-[address] [employer] [place] [address]. All righ ts reserved. This information is [...] 10/14/2016 | PROVATION | | 11:37 AMMRN: [id number] #: [id number] of : | | | 1955dmit Type: AmbulatoryAge: 61[facility]: [facility] 01Gender: FemaleNote | | | Status: FinalizedAttending MD: Patrick England , MDProcedure: | | | ColonoscopyIndications: Abdominal pain in the left lower | | | quadrant, Abnormal CT of the GI | | | tractProviders: Patrick England MD, Rebekah Balderrama, | | | RN, Lisandra Haddad, Security Operations Engineer, | | | Erasmo Herrera MD (Anesthesia [...] | | | the anesthesiologist and the critical care technician in the endoscopy suite. | | [...] | In: 11:50:23 AMScope Out: 12:06:24 PM Located Within [facility] | | | [facility], [address] [place] [address] | | | [phone] | | | - Resume previous diet [...] 12:06:24 PM | | | [facility], [address] [place] [address] | | | [address] | | + + -+ + +---------+ [...] ST. | [address] | [place] | [phone] | | [facility] | | [address] | | | - LABORATORY | | [...] ONCE PRN, Wheezing, | | | Starting [facility] 10/14/16 at 1313, For | | [...]
--- OUTSIDE RECORDS SUMMARY | ~2019-01-30 | XMS | Encounter Summary ---
Demographics + + + | Address | [address] [facility] | | | [place] [address] | + + + | Home Phone [...] Author | [facility] | | | and [place] | + + + | Organization | [facility] | | [...] Providers + +------+ + | Care Correctional Corporal Name | Role | Phone | + [...] + + | 12/03/ | Office | [facility] | Sundeep Ba PA | CONSUELO on CPAP (Primary | | 2016 | Visit | SLEEP DISORDER [address] | [address] | Dx) | | | | [address] [place] | [place] | | | | | [place] [address] | [address] | | | | | [phone] | | | +--------+---------+ + + + [...] AirSense 10 with nasal mask obtained from: [employer] in [place] pressure: 9-20 cm (lowered to 4-8 cm [...] Exam Assessment: Problem #1: OBSTRUCTIVE SLEEP APNEA ([id number]-G05.33) This is controlled with CPAP. She continues [...] months, sooner prn. Fifteen minutes were spent hqcu-on-xgix, w ith the majority of time spent [...]
--- OUTSIDE RECORDS SUMMARY | ~2019-01-30 | XMS | Encounter Summary ---
Demographics + + + | Address | [address] [facility] | | | [place] [address] | + + + | Home Phone [...] | Author | [facility] | | | and [place] | + + + | Organization | [facility] [...] Team Providers + +------+ + | Care Wellness Nurse Rn Name | Role | Phone | [...] + | 02/18/ | Telephone | [facility] | Sundeep Ba PA | Other | | 2014 | | SLEEP DISORDER [address] | [address] | | | | | [address] [place] | [place] | | | | | [place] [address] | [address] | | | | | [phone] | | | +--------+ + + + [...]
--- OUTSIDE RECORDS SUMMARY | ~2019-01-30 | XMS | Encounter Summary ---
Demographics + + + | Address | [address] [facility] | | | [place] [address] | + + + | Home Phone [...] + | Author | [facility] | | | and [place] | + + + | Organization | [facility] | [...] Team Providers + +------+ + | Care Telescope Operator Name | Role | Phone | [...] PHYSIATRY [address] | MD [address] | Authorization | | | | [place], | [place], [place] | | | | | [place] [address] | [address] | | | | | [phone] | | | +--------+ + + + [...]
--- OUTSIDE RECORDS SUMMARY | ~2019-01-30 | XMS | Encounter Summary ---
Demographics + + + | Address | [address] [facility] | | | [place] [address] | + + + | Home Phone [...] | Author | [facility] | | | and [place] | + + + | Organization | [facility] | [...] Team Providers + +------+ + | Care Emulsion Operator Name | Role | Phone | [...] + + | 10/14/ | Hospital | [facility] | Patrick England MD | Abnormal abdominal | | 2017 | Encounter | MED CTR MP INTRA OP | [address] [place] | CT scan (Primary | | | | [address] | [address] [place], [place] | Dx); Diverticulosis | | | | [place], [place] | [address] | of large intestine | | | | [address] | | without hemorrhage | | | | [phone] | | | +--------+ + + + [...] needed, you may be told to take nnuk-hdt-yozajpl stool softeners. To help relieve pain, antispasmodic [...] needed in some people with severe symptoms. [place] to colon health Diverticulitis occurs when the pouches become infected or inflamed. Help keep your colon healthy with a diet that includes plenty of high-fiber fruits, vegetab les, and whole grains. Drink plenty of liquids like water and juice. Maintain a healthy life style including regular exercise, stress management, and adequate rest and sleep. Date Last Reviewed: 09/12/201519991207-[address] [employer] [place] [address]. All righ ts reserved. This information is [...] 10/14/2016 | PROVATION | | 11:37 AMMRN: [id number] #: [id number] of : | | | 1955dmit Type: AmbulatoryAge: 61Room: [facility] 01Gender: FemaleNote | | | Status: FinalizedAttending MD: Patrick England , MDProcedure: | | | ColonoscopyIndications: Abdominal pain in the left lower | | | quadrant, Abnormal CT of the GI | | | tractProviders: Patrick England MD, Rebekah Balderrama, | | | RN, Lisandra Haddad, Electrician Supervisor Substation, | | | Erasmo Herrera MD (Anesthesia Staff)Referring MD: Abiamel | | | MD Claus (Referring MD)Medicines: [...] | | | the anesthesiologist and the industrial electrical technician in the endoscopy suite. | | [...] | In: 11:50:23 AMScope Out: 12:06:24 PM [facility] | | | [facility], [address] [place] [address] | | | [phone] | | | - Resume previous diet [...] |Scope Out: 12:06:24 PM | | | [facility], [address] [place] [address] | | | [address] | | + + -+ + +---------+ [...] ST. | [address] | [place] | [phone] | | [facility] | | [address] | | | - LABORATORY | | [...] ONCE PRN, Wheezing, | | | Starting [facility] 10/14/16 at 1313, For | | [...]
--- OUTSIDE RECORDS SUMMARY | ~2019-01-30 | XMS | Encounter Summary ---
Demographics + + + | Address | [address] [facility] | | | [place] [address] | + + + | Home Phone [...] | Author | [facility] | | | and [place] | + + + | Organization | [facility] [...] Team Providers + +------+ + | Care Marine Cargo Specialist Name | Role | Phone | [...] 2017 | | GASTROENTEROLOGY | [address], [place] | screen ) | | | | [address] [place] | [address] [place], [place] | | | | | [address] [place], [place] | [address] | | | | | [address] | | | | | | [phone] | | | +--------+ + + + [...]
--- OUTSIDE RECORDS SUMMARY | ~2019-01-30 | XMS | Encounter Summary ---
Demographics + + + | Address | [address] [facility] | | | [place] [address] | + + + | Home Phone [...] Author | [facility] | | | and [place] | + + + | Organization | [facility] [...] Team Providers + +------+ + | Care Tax Examiner Name | Role | Phone | + [...] [address] | | | | | [place], | [place] | | | | | [place] [address] | [address] | | | | | [phone] | | | +--------+ + + + [...]
--- OUTSIDE RECORDS SUMMARY | ~2019-01-30 | XMS | Encounter Summary ---
Demographics + + + | Address | [address] [facility] | | | [place] [address] | + + + | Home Phone [...] | Author | [facility] | | | and [place] | + + + | Organization | [facility] | | | and [place] | [...] Team Providers + +------+ + | Care Grading Clerk Name | Role | Phone | [...] + + | 07// | Telephone | [facility] | Patrick England MD | Other | | 2016 | | GASTROENTEROLOGY | [address], [place] | | | | | [address] [place] | [address] [place], [place] | | | | | 210 [place], [place] | [address] | | | | | [address] | | | | | | [phone] | | | +--------+ + + + [...]
--- OUTSIDE RECORDS SUMMARY | ~2019-01-30 | XMS | Encounter Summary ---
Demographics + + + | Address | [address] [facility] | | | [place] [address] | + + + | Home Phone [...] + | Author | [facility] | | | and [place] | + + + | Organization | [facility] | | | and [place] [...] Team Providers + +------+ + | Care Pear Picker Name | Role | Phone | [...] | | | Rehabilitatio | neuralgia | GYNAECOLOGICAL ONCOLOGIST [address] | | | | n | neck pain | [address] | [place], | | | | | follow up | [address] | [place] [address] | | | | | | [place], | Phone: | | | | | | [place] [address] | [phone] | | | | | | Phone: | Fax: | | | | | | [phone] | [phone] | | | | | | Fax: | | | | | | | [phone] | | +--------+--------+ + + + + Encounter Details +--------+---------+ + + + | Date | Type | Department | Care Team | Description | +--------+---------+ + + + | 11/13/ | Office | [facility] [place] | Leonidas Mohr, | Chronic daily | | 2016 | Visit | PHYSIATRY [address] | MD [address] | headache (Primary | | | | [place], | [place], [place] | Dx); Migraine | | | | [place] [address] | [address] | without aura and | | | | [phone] | | without status | | | [...] MD - 11/14/2015 1:00 PM PDT [facility] PHYSIATRY [address] [facility] [address] OFFICE NOTE LEONIDAS MOHR JR, MD Patient: LUZ MARIA LOCKWOOD Admitting: MR #: [id number] LOC: PT TYPE: Adm Date: 11/14/2015 : [...] h er headaches are over the bilateral orthodoxy, bilateral forehead, and bilateral occipital reg ions. [...] 13:00:02 Transcribed on 11/15/2015 06:18:54 by job# [id number] Confirmation #: [id number] signed by Leonidas Mohr MD at 11/19/2015 12:38 PM Leonidas Salas MD - 11/14/2015 9:29 AM PDTThis office note has been dictated. Report Confirmation# [id number] signed by Leonidas Mohr MD at 11/14/2015 [...]
--- OUTSIDE RECORDS SUMMARY | ~2019-01-30 | XMS | Encounter Summary ---
Demographics + + + | Address | [address] [facility] | | | [place] [address] | + + + | Home Phone [...] | Author | [facility] | | | and [place] | + + + | Organization | [facility] | [...] Providers + +------+ + | Care Mechanical Drawing Teacher Name | Role | Phone | [...] + + | 10/19/ | Office | [facility] | Sundeep Ba PA | [place] on CPAP (Primary | | 2016 | Visit | SLEEP DISORDER [address] | [address] | Dx) | | | | [address] [place] | [place] | | | | | [place] [address] | [address] | | | | | [phone] | | | +--------+---------+ + + + [...] AirSense 10 with nasal mask obtained from: [employer] in [place] pressure: 9-20 cm (lowered to 4-8 cm [...] Exam Assessment: Problem #1: OBSTRUCTIVE SLEEP APNEA (DJC10-T34.33) This is controlled with CPAP. She continues [...] months, sooner prn. Fifteen minutes were spent pvra-ak-avtp, w ith the majority of time spent [...]
--- OUTSIDE RECORDS SUMMARY | ~2019-01-30 | XMS | Encounter Summary ---
Demographics + + + | Address | [address] [facility] | | | [place] [address] | + + + | Home Phone | | + + + | Preferred Language | Unknown | + + + | Marital Status | | + + + | Hindu Affiliation | 1013 | + + + | Race | Unknown | + + + | Ethnic Group | Unknown | + + + Author + + + | Author | [facility] | | | and [place] | + + + | Organization | [facility] | | | and [...] Team Providers + +------+ + | Care Cook Taco Name | Role | Phone | + +------+ + | Abimael Devlin MD | PCP | | + +------+ + Encounter Details +--------+ + + + + | Date | Type | Department | Care Team | Description | +--------+ + + + + | 06/07/ | [facility] | [facility] | Andre Caballero | Chronic pain of both | | 2019 | Encounter | MED CTR YAZMIN Serrato MD [address] | knees | | | | [address] [place] | [place] | | | | | [place] | [address] | | | | | [address] | | | | | | [phone] | | | +--------+ + + + [...] and Signed by: | | | Mahesh Daely MD Electronically signed: 06/07/2018 6:22 PM | [...]
--- OUTSIDE RECORDS SUMMARY | ~2019-01-30 | XMS | Encounter Summary ---
Demographics + + + | Address | [address] [facility] | | | [place] [address] | + + + | Home Phone [...] Author | [facility] | | | and [place] | + + + | Organization | [facility] | | [...] Providers + +------+ + | Care Wine Sales Representative Name | Role | Phone [...] Medicine | Obstructive | Andre Arnold | [place] [address] | | | Required | | sleep apnea | MD David Montoya | Just[place] | | | | | (adult) | [place] | [place], | | | | | (pediatric) | [place] | [place] [address] | | | | | Bipolar I | [place], [place] | Phone: | | | | | disorder, | [address] | [phone] | | | | | most recent | Phone: | Fax: | | | | | episode (or | [phone] | [phone] | | | | | current) | Fax: | | | | | | unspecified | [phone] | | | | | | Type [...] | | | | | | | [place] POLYSOM | | | | | | | 6/>YRS SLEEP | | | | | | | 4/> ADDL | | | | | | | [place]ESA ATTND | | | | | | | [place] POLYSOM | | | | | | | 6/>YRS SLEEP | | | | | | | W/CPAP 4/> | | | | | | | ADDL LEESA | | | | | | | ATTND | | | | | | | Having [address] | | | | | | | not [address] | | | +--------+ + + + + + Encounter Details +--------+ + + + + | Date | Type | Department | Care Team | Description | +--------+ + + + + | 12/03/ | Hospital | [facility] | Andre Ugarte | Obstructive sleep | | 2014 | Encounter | MED CTR SLEEP | MD Jan [address] | apnea (adult) | | | | [address] [place] | [facility] | (pediatric) (Primary | | | | [place], [place] | [place] [address] | Dx); [place] | | | | [address] | [phone] | (obstructive sleep | | | | [phone] | | apnea) | +--------+ + + [...]
--- OUTSIDE RECORDS SUMMARY | ~2019-01-30 | XMS | Encounter Summary ---
Demographics + + + | Address | [address] [facility] | | | [place] [address] | + + + | Home Phone [...] Author | [facility] | | | and [place] | + + + | Organization | [facility] | | | and [...] Team Providers + +------+ + | Care Autocutter Name | Role | Phone | + [...] + + | 09/03/ | Telephone | [facility] [place] | Katy Huddlestonterrance [place], | Other | | 2014 | | PHYSIATRY [address] | MD [address] | | | | | [place], | [place], [place] | | | | | [place] [address] | [address] | | | | | [phone] | | | +--------+ + + + [...]
--- OUTSIDE RECORDS SUMMARY | ~2019-01-30 | XMS | Encounter Summary ---
Demographics + + + | Address | [address] [facility] | | | [place] [address] | + + + | Home Phone [...] Author | [facility] | | | and [place] | + + + | Organization | [facility] | | [...] Team Providers + +------+ + | Care Customer Service Representative Teacher Name | Role | Phone | [...] + + | 12/06/ | Telephone | [facility] [place] | Katy Huddlestonterrance [place], | Other | | 2014 | | PHYSIATRY [address] | MD [address] | | | | | [place], | [place], [place] | | | | | [place] [address] | [address] | | | | | [phone] | | | +--------+ + + + [...]
--- OUTSIDE RECORDS SUMMARY | ~2019-01-30 | XMS | Encounter Summary ---
Demographics + + + | Address | [address] [facility] | | | [place] [address] | + + + | Home Phone [...] Author | [facility] | | | and [place] | + + + | Organization | [facility] [...] Providers + +------+ + | Care Financial Foundations Associate Name | Role | Phone | [...] Right hip | [place], | [address] | | | | | pain | Paco Cox MD | [place], | | | | | Procedures | [address] | [place] | | | | | [place] Asp | [place] | [address] | | | | | and/or Inj | [place], [place] | Phone: | | | | | Major Joint | [address] | [phone] | | | | | Right CHG | Phone: | Fax: | | | | | FLUOROSCOPIC | [phone] | [phone] | | | | | GUIDANCE | Fax: | | | | | | NEEDLE | [phone] | | | | | | PLACEMENT | | | | | | | ADD ON PA | | | | | | [...] Right hip | Lisa, | [address] | | | | | pain | Paco Cox MD | [place], | | | | | Bursitis of | [address] | [place] | | | | | right hip | [place] | [address] | | | | | Procedures | [place], [place] | Phone: | | | | | [place] | [address] | [phone] | | | | | ARTHROCENTES | Phone: | Fax: | | | | | [place] | [phone] | [phone] | | | | | ASPIR&/INJ | Fax: | | | | | | MAJOR | [phone] | | | | | | JT/BURSA W/O | | | | | | | US [place] | | | | | | [...] + + | 12/26/ | Hospital | [facility] | [place]ick[place]ominik, | Right hip pain | | 2018 | Encounter | MED CTR XRAY [address] | CHRISTIANA Kuhn [address] | | | | | [address] [place] | [address], | | | | | [place] [address] | [place] [address] | | | | | [phone] | [phone] | | | | | | | | | | | | Toe LasterTono | | +--------+ + + + + [...] + + | Performing | Address | City[facility] | Phone Number | | Organization | [...]
--- OUTSIDE RECORDS SUMMARY | ~2019-01-30 | XMS | Encounter Summary ---
Demographics + + + | Address | [address] [facility] | | | [place] [address] | + + + | Home Phone [...] | Author | [facility] | | | and [place] | + + + | Organization | [facility] [...] Team Providers + +------+ + | Care Tape Sewer Name | Role | Phone | [...] + + | 09/03/ | Telephone | [facility] [place] | Katy Huddelstonterrance [place], | Other | | 2014 | | PHYSIATRY [address] | MD [address] | | | | | [place], | [place], [place] | | | | | [place] [address] | [address] | | | | | [phone] | | | +--------+ + + + [...]
--- OUTSIDE RECORDS SUMMARY | ~2019-01-30 | XMS | Encounter Summary ---
Demographics + + + | Address | [address] [facility] | | | [place] [address] | + + + | Home Phone [...] | Author | [facility] | | | and [place] | + + + | Organization | [facility] | [...] Team Providers + +------+ + | Care Music Theory Teacher Name | Role | Phone | [...] | occipital | [address] | | | | n | neuralgia | [address] | [place], | | | | | Procedures | [place], | [place] [address] | | | | | DE INJECT | [place] [address] | Phone: | | | | | NERV | Phone: | [phone] | | | | | GREGORIO MILLER | [phone] | Fax: | | | | | OCCIPTL [place] | Fax: | [phone] | | | | | BETAMETHASON | [phone] | | | | | | E [...] | | | | | positional | [address] | [address] | | | | | vertigo | [place], | [address] | | | | | Procedures | [place] [address] | [address] | | | | | 8/14 PEND | Phone: | [place], | | | | | [place] | [phone] | [place] [address] | | | | | | Fax: | Phone: | | | | | | [phone] | [phone] | | | | | | | Fax: | | | | | | | [phone] | +--------+ + + + + + [...] | | | | | positional | [address] | [address] | | | | | vertigo | [place], | [address] [place] | | | | | Procedures | [place] [address] | [place], [place] | | | | | [address] | Phone: | [address] | | | | | [place] | [phone] | Phone: | | | | | | Fax: | [phone] | | | | | | [phone] | Fax: | | | | | | | [phone] | +--------+ + + + + + [...] | PHYSIATRY [address] | [address] | Dx); Bilateral | | | | [address] [place], | [place] | occipital neuralgia; | | | | [place] [address] | [address] | Chronic daily | | | | [phone] | | headache; | | | | [...] MD - 10/16/2014 2:13 PM PDT [facility] PHYSIATRY [address] [facility] [id number] OFFICE NOTE LEONIDAS MOHR JR, MD Patient: LUZ MARIA LOCKWOOD Admitting: MR #: [id number] LOC: PT TYPE: Adm Date: 10/16/2014 : [...] Transcribed on 10/16/2014 19:17:28 by hailee job# [id number] Confirmation #: [id number] cc: WICHO STARKEY MD Leonidas Mohr MD - 10/16/2014 1:33 PM PDTThis office note has been dictated. Job ID# [id number] signed by Leonidas Mohr MD at 10/16/2014 [...]
--- OUTSIDE RECORDS SUMMARY | ~2019-01-30 | XMS | Encounter Summary ---
Demographics + + + | Address | [address] [facility] | | | [place] [address] | + + + | Home Phone [...] Author | [facility] | | | and [place] | + + + | Organization | [facility] | | [...] Team Providers + +------+ + | Care Auto Transmission Specialist Name | Role | Phone | [...] + | 02/18/ | Telephone | [facility] | Sundeep Ba PA | Other | | 2014 | | SLEEP DISORDER [address] | [address] | | | | | [address] [place] | [place] | | | | | [place] [address] | [address] | | | | | [phone] | | | +--------+ + + + [...]
--- OUTSIDE RECORDS SUMMARY | ~2019-01-30 | XMS | Encounter Summary ---
Demographics + + + | Address | [address] [facility] | | | [place] [address] | + + + | Home Phone [...] Author | [facility] | | | and [place] | + + + | Organization | [facility] [...] Team Providers + +------+ + | Care Stemming Machine Operator Name | Role | Phone [...] + + | 12/28/ | Telephone | [facility] | Sundeep Ba PA | Apnea | | 2014 | | SLEEP DISORDER [address] | [address] | | | | | [address] [place] | [place] | | | | | [place] [address] | [address] | | | | | [phone] | | | +--------+ + + + [...]
--- OUTSIDE RECORDS SUMMARY | ~2019-01-30 | XMS | Encounter Summary ---
Demographics + + + | Address | [address] [facility] | | | [place] [address] | + + + | Home Phone | | + + + | Preferred Language | Unknown | + + + | Marital Status | | + + + | Temple Affiliation | 1013 | + + + | Race | Unknown | + + + | Ethnic Group | Unknown | + + + Author + + + | Author | [facility] | | | and [place] | + + + | Organization | [facility] | | | and [...] Team Providers + +------+ + | Care Embedded Software Architect Name | Role | Phone | [...] | | [address] [facility] | | | | | | [address] [place] | | | | | | [address] | | | | | | [phone] | | | +--------+ + + + [...]
--- OUTSIDE RECORDS SUMMARY | ~2019-01-30 | XMS | Encounter Summary ---
Demographics + + + | Address | [address] [facility] | | | [place] [address] | + + + | Home Phone [...] | Author | [facility] | | | and [place] | + + + | Organization | [facility] | | | and [...] Providers + +------+ + | Care Wire Splicer Name | Role | Phone | + +------+ + | Abimael Devlin MD | PCP | | + +------+ + Encounter Details +--------+ + + + + | Date | Type | Department | Care Team | Description | +--------+ + + + + | 10/17/ | [facility] | [place] | Andre Caballero | Right hip pain | | 2018 | Encounter | MED CTR YAZMIN NICKI | MD Rojel[address] [facility] | | | | | [address] [place] | [place] | | | | | [place] | [address] | | | | | [address] | | | | | | [phone] | | | +--------+ + + + [...]
--- OUTSIDE RECORDS SUMMARY | ~2019-01-30 | XMS | Encounter Summary ---
Demographics + + + | Address | [address] [facility] | | | [place] [address] | + + + | Home Phone [...] | Author | [facility] | | | and [place] | + + + | Organization | [facility] | | [...] Team Providers + +------+ + | Care Bulk Gas Specialist Name | Role | Phone | [...] | | | | | | | ID | | | | | | | COLONOSCOPY | | | | | | | FLX DX | | | | | | | W/COLLJ SPEC | | | | | | | WHEN PFRMD | | | | | | | ID | | | | | | | COLONOSCOPY | | | | | | | W/BIOPSY | | | | | | | SINGLE/MULTI | | | | | | | PLE ID | | | | | | | COLSC FLX | | | | | | | W/RMVL OF | | | | | | | TUMOR POLYP | | | | | | | LESION SNARE | | | | | | | TQ ID | | | | | | | [...] + + | 10/14/ | Hospital | [facility] | Patrick England MD | Abnormal abdominal | | 2017 | Encounter | MED CTR MP INTRA OP | [address], [place] | CT scan (Primary | | | | [address] | [address] [place], [place] | Dx); Diverticulosis | | | | [place], [place] | [address] | of large intestine | | | | [address] | | without hemorrhage | | | | [phone] | | | +--------+ + + + [...] needed, you may be told to take pwau-qae-cfzjxze stool softeners. To help relieve pain, antispasmodic [...] needed in some people with severe symptoms. [place] to colon health Diverticulitis occurs when the pouches become infected or inflamed. Help keep your colon healthy with a diet that includes plenty of high-fiber fruits, vegetab les, and whole grains. Drink plenty of liquids like water and juice. Maintain a healthy life style including regular exercise, stress management, and adequate rest and sleep. Date Last Reviewed: 09/12/201519998715-3278 [email or web address] [place] [address]. All righ ts reserved. This information is [...] 10/14/2016 | PROVATION | | 11:37 AMMRN: [id number] #: [id number] of : | | | 1955dmit Type: AmbulatoryAge: 61Room: [facility] 01Gender: FemaleNote | | | Status: FinalizedAttending MD: Patrick England , MDProcedure: | | | ColonoscopyIndications: Abdominal pain in the left lower | | | quadrant, Abnormal CT of the GI | | | tractProviders: Patrick England MD, Rebekah Balderrama, | | | RN, Lisandra Haddad, Email Designer, | | | Erasmo Herrera MD (Anesthesia [...] | | | the anesthesiologist and the automated equipment engineer technician in the endoscopy suite. | | [...] | In: 11:50:23 AMScope Out: 12:06:24 PM [facility] | | | [facility], [address] [place] [address] | | | [phone] | | | - Resume previous diet [...] |Scope Out: 12:06:24 PM | | | [facility], [address] [place] [address] | | | [address] | | + + -+ + +---------+ [...] ST. | [address] | [place] | [phone] | | [facility] | | [address] | | | - LABORATORY | | [...] ONCE PRN, Wheezing, | | | Starting [facility] 10/14/16 at 1313, For | [...]
--- OUTSIDE RECORDS SUMMARY | ~2019-01-30 | XMS | Encounter Summary ---
Demographics + + + | Address | [address] [facility] | | | [place] [address] | + + + | Home Phone [...] Author | [facility] | | | and [place] | + + + | Organization | [facility] [...] Team Providers + +------+ + | Care Telecommunicator Name | Role | Phone | + [...] + + | 10/19/ | [facility] | [facility] | Sundeep Ba PA | CONSUELO on CPAP (Primary | | 2016 | Visit | SLEEP DISORDER [address] | [address] | Dx) | | | | [address] [place] | [place] | | | | | [place] [address] | [address] | | | | | [phone] | | | +--------+---------+ + + + [...] AirSense 10 with nasal mask obtained from: [employer] in [place] pressure: 9-20 cm (lowered to 4-8 cm [...] Exam Assessment: Problem #1: OBSTRUCTIVE SLEEP APNEA ([id number]-O98.33) This is controlled with CPAP. She continues [...] months, sooner prn. Fifteen minutes were spent [id number], w ith the majority of time spent [...]
--- OUTSIDE RECORDS SUMMARY | ~2019-01-30 | XMS | Encounter Summary ---
Demographics + + + | Address | [address] [facility] | | | [place] [address] | + + + | Home Phone | | + + + | Preferred Language | Unknown | + + + | Marital Status | | + + + | Mormon Affiliation | 1013 | + + + | Race | Unknown | + + + | Ethnic Group | Unknown | + + + Author + + + | Author | [facility] | | | and [place] | + + + | Organization | [facility] | | | and [...] Team Providers + +------+ + | Care Laborer Vegetable Farm Name | Role | Phone | + [...] [place] | | | | | | [place] [address] | [place], [place] | | | | | | Phone: | [address] | | | | | | [phone] | Phone: | | | | | | Fax: | [phone] | | | | | | [phone] | Fax: | | | | | | | [phone] | +--------+ + + + + + [...] | | | | [address] | [place], [place] | | | | | | [place], | [address] Phone: | | | | | | [place] [address] | [phone] | | | | | | Phone: | Fax: | | | | | | [phone] | [phone] | | | | | | Fax: | | | | | | | [phone] | | +--------+--------+ + + + + Encounter Details +--------+---------+ + + + | Date | Type | Department | Care Team | Description | +--------+---------+ + + + | 09/01/ | Office | [facility] | Federico Andre | Primary | | 2019 | Visit | ORTHOPEDIC SURGERY | MD [address]jel[address] [facility] [facility] | osteoarthritis of | | | | [address] [facility] | [place], [place] | both knees (Primary | | | | [place] | [address] | Dx) | | | | [address] | | | | | | [phone] | | | +--------+---------+ + + + [...] for her to start aqua therapy through [facility] in [place], [place] where she lives. We have encouraged [...]
--- OUTSIDE RECORDS SUMMARY | ~2019-01-30 | XMS | Encounter Summary ---
Demographics + + + | Address | [address] [facility] | | | [place] [address] | + + + | Home Phone [...] + | Author | [facility] | | | and [place] | + + + | Organization | [facility] | [...] Providers + +------+ + | Care Machine I Trimmer Name | Role | Phone | + +------+ + | Abimael Devlin MD | PCP | | + +------+ + Encounter Details +--------+ + + + + | Date | Type | Department | Care Team | Description | +--------+ + + + + | 06/07/ | [facility] | [facility] | Andre Caballero | Chronic pain of both | | 2019 | Encounter | MED CTR YAZMIN Serrato MD [address] | knees | | | | [address] [place] | [place] | | | | | [place] | [address] | | | | | [address] | | | | | | [phone] | | | +--------+ + + + [...]
--- OUTSIDE RECORDS SUMMARY | ~2019-01-30 | XMS | Encounter Summary ---
Demographics + + + | Address | [address] [facility] | | | [place] [address] | + + + | Home Phone [...] | [facility] | | | and [place] | + + + | Organization | [facility] [...] Providers + +------+ + | Care Manager Sas Name | Role | Phone | + +------+ + | Wicho Starkey MD | PCP | | + +------+ + Encounter Details +--------+ + + + + | Date | Type | Department | Care Team | Description | +--------+ + + + + | 12/04/ | Hospital | [facility] | Leonidas Huddleston, | Right knee pain; | | 2014 | Encounter | MED CTR XRAY [address] | [address] | Swelling of right | | | | [place] | [place], [place] | knee joint | | | | [place] [address] | [address] | | | | | [phone] | | | +--------+ + + + [...] twisting knee, with right knee swelling | [facility] | | COMPARISON: None. FINDINGS:Frontal weightbearing views of both | [facility]ENTER | | knees. A lateral [...] [address] | [place] | [phone] | | [facility] | | [address] | | | - IMAGING | | [...]
--- OUTSIDE RECORDS SUMMARY | ~2019-01-30 | XMS | Encounter Summary ---
Demographics + + + | Address | [address] [facility] | | | [place] [address] | + + + | Home Phone [...] | [facility] | | | and [place] | + + + | Organization | [facility] | [...] Team Providers + +------+ + | Care Rifle Case Repairer Name | Role | Phone | [...] [place] | | | | | | [address] | | | | | | [phone] | | | +--------+ + + + [...]
--- OUTSIDE RECORDS SUMMARY | ~2019-01-30 | XMS | Encounter Summary ---
Demographics + + + | Address | [address] [facility] | | | [place] [address] | + + + | Home Phone [...] | Author | [facility] | | | and [place] | + + + | Organization | [facility] | | [...] Team Providers + +------+ + | Care Vine Fruit Farming Supervisor Name | Role | Phone | + +------+ + PCP | Unavailable | + +------+ + Encounter Details +--------+ + + + + | Date | Type | Department | Care Team | Description | +--------+ + + + + | 01/08/ | [facility] | [facility] | | | | 2012 | Encounter | MED CTR XRAY [address] | | | | | | [place] | | | | | | [place] [address] | | | | | | [phone] | | | +--------+ + + + [...] Performed At | + + + | Diagnostic Imaging | [facility] | | Department [address] [place] | [facility] | | [ rep ct street[address]] [ rep ct [facility] | | st zip] Signed | - IMAGING | | | | | Patient Name: LUZ MARIA LOCKWOOD Rojelio | | | Physician: AVEL : 1955 Age: 57 Sex: F Unit | | | #: [id number] Exam Date: 01/08/13 Location: | | | [facility] Report #: [id number] Page: | | | %(RAD)RES..mtdd.print.filter("pg") of %(RAD) | | | RES..mtdd.print.filter("tpg") | | | | | | Accession Number: [id number] | | | MRI LUMBAR SPINE CLINICAL [...] Transcribed Date/Time: 01/08/2013 17:54 | | | Maintenance And Operations Supervisor: <<Signature on File>> | | | | | | Patrick Olivares MD01/09/13 9622 <Electronically signed by Patrick Cox | | | Marshall WINTERS> Patrick Olivares MD 01/08/13 3341 | | | Maintenance And Operations Supervisor: TheOfficialBoard Riwwrhpftkyex38/28/13 5989 | | | MD Trevor Blue MD | | + + + + + + + + | Performing | Address | City/[facility]/Zipcode | Phone Number | | Organization | | | | + + + + + | [address] | [address] | [place] | [phone] | | [facility] | | [address] | | | - IMAGING | | | | + + + + + documented in this encounter Visit Diagnoses Not on filedocumented in this encounter
--- OUTSIDE RECORDS SUMMARY | ~2019-01-30 | XMS | Encounter Summary ---
Demographics + + + | Address | [address] [facility] | | | [place] [address] | + + + | Home Phone [...] | Author | [facility] | | | and [place] | + + + | Organization | [facility] | | | [...] Team Providers + +------+ + | Care Dial Printer Name | Role | Phone | + [...] + + | 12/03/ | Office | [facility] | Sundeep Ba PA | CONSUELO on CPAP (Primary | | 2016 | Visit | SLEEP DISORDER [address] | [address] | Dx) | | | | [address] [place] | [place] | | | | | [place] [address] | [address] | | | | | [phone] | | | +--------+---------+ + + + [...] AirSense 10 with nasal mask obtained from: [employer] in [place] pressure: 9-20 cm (lowered to 4-8 cm [...] Exam Assessment: Problem #1: OBSTRUCTIVE SLEEP APNEA (QWT56-O02.33) This is controlled with CPAP. She continues [...] months, sooner prn. Fifteen minutes were spent [id number], w ith the majority of time spent [...]
--- OUTSIDE RECORDS SUMMARY | ~2019-01-30 | XMS | Encounter Summary ---
Demographics + + + | Address | [address] [facility] | | | [place] [address] | + + + | Home Phone [...] | Author | [facility] | | | and [place] | + + + | Organization | [facility] | | | and [place] [...] Team Providers + +------+ + | Care Hearing Aid Repair Technician Name | Role | Phone | + +------+ + | Abimael Devlin MD | PCP | | + +------+ + Encounter Details +--------+ + + + + | Date | Type | Department | Care Team | Description | +--------+ + + + + | 10/17/ | [facility] | [facility] | Andre Caballero | Right hip pain | | 2018 | Encounter | MED CTR YAZMIN NICKI | MD [address]jel[address] [facility] | | | | | [address] [place] | [place] | | | | | [place] | [address] | | | | | [address] | | | | | | [phone] | | | +--------+ + + + [...]
--- OUTSIDE RECORDS SUMMARY | ~2019-01-30 | XMS | Encounter Summary ---
Demographics + + + | Address | [address] [facility] | | | [place] [address] | + + + | Home Phone [...] | Author | [facility] | | | and [place] | + + + | Organization | [facility] | | | and [place] [...] Providers + +------+ + | Care Electronic Tester Name | Role | Phone | [...] | SR | | | | | [phone] | | | +--------+ + + + [...]
--- OUTSIDE RECORDS SUMMARY | ~2019-01-30 | XMS | Encounter Summary ---
Demographics + + + | Address | [address] [facility] | | | [place] [address] | + + + | Home Phone [...] + | Author | [facility] | | | and [place] | + + + | Organization | [facility] | [...] Team Providers + +------+ + | Care Nitroglycerin Distributor Name | Role | Phone | + [...] [address] | MD [address] | neuralgia (Primary | | | | [place], | [place], [place] | Dx) | | | | [place] [address] | [address] | | | | | [phone] | | | +--------+ + + + [...]
--- OUTSIDE RECORDS SUMMARY | ~2019-01-30 | XMS | Encounter Summary ---
Demographics + + + | Address | [address] [facility] | | | [place] [address] | + + + | Home Phone [...] Author | [facility] | | | and [place] | + + + | Organization | [facility] | | | and [...] Team Providers + +------+ + | Care Metal Sorter Name | Role | Phone | + +------+ + | Abimael eDvlin MD | PCP | | + +------+ + Encounter Details +--------+ + + + + | Date | Type | Department | Care Team | Description | +--------+ + + + + | 09/29/ | Episode | [facility] | Beti Arzate | | | 2017 | Changes | GASTROENTEROLOGY | L, RN | | | | | [address] [facility] | | | | | | [address] [place] | | | | | | [address] | | | | | | [phone] | | | +--------+ + + + [...]
--- OUTSIDE RECORDS SUMMARY | ~2019-01-30 | XMS | Encounter Summary ---
Demographics + + + | Address | [address] [facility] | | | [place] [address] | + + + | Home Phone | | + + + | Preferred Language | Unknown | + + + | Marital Status | | + + + | Latter Day Affiliation | 1013 | + + + | Race | Unknown | + + + | Ethnic Group | Unknown | + + + Author + + + | Author | [facility] | | | and [place] | + + + | Organization | [facility] | | [...] Team Providers + +------+ + | Care Mine Manager Name | Role | Phone | [...] | | | | | | | ME | | | | | | | COLONOSCOPY | | | | | | | FLX DX | | | | | | | W/COLLJ SPEC | | | | | | | WHEN PFRMD | | | | | | | ME | | | | | | | COLONOSCOPY | | | | | | | W/BIOPSY | | | | | | | SINGLE/MULTI | | | | | | | PLE ME | | | | | | | COLSC FLX | | | | | | | W/RMVL OF | | | | | | | TUMOR POLYP | | | | | | | LESION SNARE | | | | | | | TQ ME | | | | | | [...] + + | 10/14/ | Anesthesia | [facility] | Erasmo Herrera | | | 2017 | Event | MED CTR MP INTRA OP | Rico SOLIZ MD [address] | | | | | [address] | [facility] | | | | | [place] | [place] [address] | | | | | [address] | [phone] | | | | | [phone] | | | +--------+ + + + [...] 11:43 | | | | | Starting [facility] 10/14/16 at 1143, | | AM PDT | | | | | Anesthesia Intra-op | | | | | | + +---------+ +------+------+------+ +---+---+ | | | +---+---+ + +-------+ +--------+---+---+ | lidocaine (PF) 2% injection | Given | 10/15/19 | 100 mg | | | | Intravenous, PRN, Starting Ntay | | 17 11:43 | | | [...] mcg/kg/m | mL/hr | | | Starting Naty 10/14/16 at 1143, | | AM PDT | in | | | | Anesthesia Intra-op | | | | | | + +---------+ + +--------+---+ +---+---+ | | | +---+---+ documented in this encounter"
--- OUTSIDE RECORDS SUMMARY | ~2019-01-30 | XMS | Encounter Summary ---
Demographics + + + | Address | [address] [facility] | | | [place] [address] | + + + | Home Phone [...] | Author | [facility] | | | and [place] | + + + | Organization | [facility] | | | [...] Providers + +------+ + | Care Renal Technician Name | Role | Phone | [...] [place] | | | | | | [address] | | | | | | [phone] | | | +--------+ + + + [...]
--- OUTSIDE RECORDS SUMMARY | ~2019-01-30 | XMS | Encounter Summary ---
Demographics + + + | Address | [address] [facility] | | | [place] [address] | + + + | Home Phone [...] Author | [facility] | | | and [place] | + + + | Organization | [facility] | | | [...] Team Providers + +------+ + | Care Suit Maker Name | Role | Phone | [...] + + | 03/09/ | Telephone | [facility] | Andre Caballero | Other | | 2017 | | ORTHOPEDIC SURGERY | MD [address] [facility] | | | | | [address] [facility] | [place] | | | | | [place] | [address] | | | | | [address] | | | | | | [phone] | | | +--------+ + + + [...]
--- OUTSIDE RECORDS SUMMARY | ~2019-01-30 | XMS | Encounter Summary ---
Demographics + + + | Address | [address] [facility] | | | [place] [address] | + + + | Home Phone [...] Author | [facility] | | | and [place] | + + + | Organization | [facility] [...] Team Providers + +------+ + | Care Stone Chimney Mason Name | Role | Phone | + [...] | pain | [address] | | | | n | Trochanteric | [address] | [place], | | | | | bursitis of | [place], | [place] | | | | | right hip | [place] [address] | [address] | | | | | Primary | Phone: | Phone: | | | | | osteoarthrit | [phone] | [phone] | | | | | is of right | Fax: | Fax: | | | | | hip | [phone] | [phone] | +--------+ + + + + + [...] [place] | Trochanteric | | | | [place], [place] | [address] | bursitis of right | | | | [address] | | hip; Primary | | | | [phone] | | osteoarthritis of | | | [...]
--- OUTSIDE RECORDS SUMMARY | ~2019-01-30 | XMS | Encounter Summary ---
Demographics + + + | Address | [address] [facility] | | | [place] [address] | + + + | Home Phone [...] | Author | [facility] | | | and [place] | + + + | Organization | [facility] | [...] Team Providers + +------+ + | Care Atomic Process Engineer Name | Role | Phone | [...] [phone] | ([facility]) | | | | [place] | [place] | | | | | [place], [place] | [address] | | | | | [address] | [phone] | | | | | [phone] | | | +--------+ + + + [...]
--- OUTSIDE RECORDS SUMMARY | ~2019-01-30 | XMS | Encounter Summary ---
Demographics + + + | Address | [address] [facility] | | | [place] [address] | + + + | Home Phone [...] | Author | [facility] | | | and [place] | + + + | Organization | [facility] | [...] Team Providers + +------+ + | Care Permastone Installer Name | Role | Phone | [...] | SR | | | | | [phone] | | | +--------+ + + + [...]
--- OUTSIDE RECORDS SUMMARY | ~2019-01-30 | XMS | Encounter Summary ---
Demographics + + + | Address | [address] [facility] | | | [place] [address] | + + + | Home Phone [...] + | Author | [facility] | | | and [place] | + + + | Organization | [facility] | [...] Team Providers + +------+ + | Care Engineering Technician Name | Role | Phone | [...] + + | 07// | Telephone | [facility] | Patrick England MD | Other | | 2016 | | GASTROENTEROLOGY | [address], [place] | | | | | [address] [place] | [address] [place], [place] | | | | | 210 [place], [place] | [address] | | | | | [address] | | | | | | [phone] | | | +--------+ + + + [...]
--- OUTSIDE RECORDS SUMMARY | ~2019-01-30 | XMS | Encounter Summary ---
Demographics + + + | Address | [address] [facility] | | | [place] [address] | + + + | Home Phone [...] | Author | [facility] | | | and [place] | + + + | Organization | [facility] | | | and [place] [...] Team Providers + +------+ + | Care Commercial Glazier Name | Role | Phone | + [...] + | 02/18/ | Telephone | [facility] | Sundeep Ba PA | Other | | 2014 | | SLEEP DISORDER [address] | [address] | | | | | [address] [place] | [place] | | | | | [place] [address] | [address] | | | | | [phone] | | | +--------+ + + + [...]
--- OUTSIDE RECORDS SUMMARY | ~2019-01-30 | XMS | Encounter Summary ---
Demographics + + + | Address | [address] [facility] [address] | | | [place] [address] | + + + | Home Phone [...] Author | [facility] | | | and [place] | + + + | Organization | [facility] [...] Providers + +------+ + | Care Research Scholar Name | Role | Phone | + [...] | | pelvic | AMAN[address] | [address] Phone: | | | | | region and | [place], | [phone] | | | | | thigh | [place] [address] | Fax: | | | | | | Phone: | [phone] | | | | | | [phone] | | | | | | | Fax: | | | | | | | [phone] | | +--------+--------+ + + + + Encounter Details +--------+---------+ + + + | Date | Type | Department | Care Team | Description | +--------+---------+ + + + | 10/17/ | Office | [facility] [place] | Andre Caballero | Right hip pain | | 2018 | Visit | ORTHOPEDIC SURGERY | MD Rojel[address] [facility] | (Primary Dx); | | | | [address] | [place] | Trochanteric | | | | [place], [place] | [address] | bursitis of right | | | | [address] | | hip; Primary | | | | [phone] | | osteoarthritis of | | | [...] from the original. Luz Maria Carmona 1955 [id number] Luz Maria Carmona is 62 y.o. female [...] She therefore underwent an MRI scan in [facility] in June of this year and [...] daily headache Chronic pain Depression treated through [address] Diabetes mellitus (HCC) 1999 Diverticulitis Environmental allergies [...] Procedure: COLONOSCOPY; Surgeon: Patrick England MD; Location: [facility] HYSTERECTOMY KNEE CARTILAGE [...] on file Social History Narrative Lives in [place] in apartment. Review of Systems - Eyes: [...]
--- OUTSIDE RECORDS SUMMARY | ~2019-01-30 | XMS | Encounter Summary ---
Demographics + + + | Address | [address] [facility] | | | [place] [address] | + + + | Home Phone [...] | [facility] | | | and [place] | + + + | Organization | [facility] | | [...] Team Providers + +------+ + | Care Taxicab Dispatcher Name | Role | Phone | [...] | | | | | | | OR | | | | | | | COLONOSCOPY | | | | | | | FLX DX | | | | | | | W/COLLJ SPEC | | | | | | | WHEN PFRMD | | | | | | | OR | | | | | | | COLONOSCOPY | | | | | | | W/BIOPSY | | | | | | | SINGLE/MULTI | | | | | | | PLE OR | | | | | | | COLSC FLX | | | | | | | W/RMVL OF | | | | | | | TUMOR POLYP | | | | | | | LESION SNARE | | | | | | | TQ OR | | | | | | | [...] + + | 10/14/ | Surgery | [facility] | Patrick England MD | COLONOSCOPY | | 2017 | | MED CTR MP INTRA OP | [address], [place] | | | | | [address] | [address] [place] | | | | | [place], [place] | [address] | | | | | [address] | | | | | | [phone] | | | +--------+---------+ + + + [...] needed, you may be told to take mmug-pdo-owushig stool softeners. To help relieve pain, antispasmodic [...] needed in some people with severe symptoms. [employer] to colon health Diverticulitis occurs when the pouches become infected or inflamed. Help keep your colon healthy with a diet that includes plenty of high-fiber fruits, vegetab les, and whole grains. Drink plenty of liquids like water and juice. Maintain a healthy life style including regular exercise, stress management, and adequate rest and sleep. Date Last Reviewed: 09/12/201519996102-5572 [employer]. [address] [place] [address], [place] [address]. All righ ts reserved. This information is [...] 10/14/2016 | PROVATION | | 11:37 AMMRN: [id number] #: [id number] of : | | | 5Admit Type: AmbulatoryAge: 61[facility] 01Gender: FemaleNote | | | Status: FinalizedAttending MD: Patrick England , [facility]: | | | ColonoscopyIndications: Abdominal pain in the left lower | | | quadrant, Abnormal CT of the GI | | | tractProviders: Patrick England MD, Rebekah Balderrama, | | | RN, Lisandra Haddad, Fisheries Technician, | | | Erasmo Herrera MD [...] | | | the anesthesiologist and the lamination technician in the endoscopy suite. | | [...] | In: 11:50:23 AMScope Out: 12:06:24 PM [facility] | | | [facility], [address] [place] [address] | | | [phone] | | | - Resume previous diet [...] |Scope Out: 12:06:24 PM | | | [facility], [address] [place] [address] | | | [address] | | + + -+ + +---------+ [...] [address] | [place] | [phone] | | [facility] | | [address] | | | - LABORATORY | | [...] ONCE | | | PRN, Nausea, Starting [facility] 10/14/16 | | | at 1314, For 1 dose, | | | Recovery/Phase I | | + +---+ | | | + +---+ documented in this encounter
--- OUTSIDE RECORDS SUMMARY | ~2019-01-30 | XMS | Encounter Summary ---
Demographics + + + | Address | [address] [facility] | | | [place] [address] | + + + | Home Phone [...] | Author | [facility] | | | and [place] | + + + | Organization | [facility] [...] Providers + +------+ + | Care Research Mechanic Name | Role | Phone | [...] | Leonidas Irving MD | [address] | | | | | pain | [address] | [place], | | | | | Swelling of | [address] | [place] | | | | | right knee | [place], | [address] | | | | | joint | [place] [address] | Phone: | | | | | Procedures | Phone: | [phone] | | | | | MRI Knee | [phone] | Fax: | | | | | Right wo | Fax: | [phone] | | | | | Contrast | [phone] | | +--------+--------+ + + + + Reason for Visit + + + | Reason | Comments | + + + | Neck Pain | | + + + Encounter Details +--------+---------+ + + + | Date | Type | Department | Care Team | Description | +--------+---------+ + + + | 12/02/ | [facility] | [facility] [place] | Leonidas Huddleston, | Bilateral occipital | | 2015 | Visit | PHYSIATRY [address] | [address] | neuralgia (Primary | | | | [place], | [place], [place] | Dx); Chronic daily | | | | [place] [address] | [address] | headache; | | | | [phone] | | Fibromyalgia; Right | | | [...] can not be done by [facility] we will request Botox injections for chroni c daily headache. We may taper up Lyrica more in the future. documented in this encounter Progress Notes Leonidas Huddleston MD - 12/02/2014 12:38 PM PDT [facility] [address] [facility] [address] OFFICE NOTE LEONIDAS HUDDLESTON JR, MD Patient: LUZ MARIA LOCKWOOD Admitting: MR #: [id number] LOC: PT TYPE: Adm Date: 12/02/2014 : [...] headaches. She has been on gabape ntin correction. She is not sure that it offers [...] triceps, wrist dorsiflexion, finger abduction and hand diplomatic interpreter/translator. DATABASE: No new imaging or laboratory data [...] or may not q ualify for the [facility] care. If she is approved for [facility] care, we will plan to move for price with greater occipital nerve blocks through [facility] care. If she cannot [facility], she will return to clinic in the future. We would then consider Botox chemodener vation of facial and neck innervated muscles under needle EMG guidance for the treatment of chronic daily headaches. She has been on gabapentin correction. She does not believe it is helping. [...] her. If she cannot receive approval for [facility] care, we will consider glen ating [...] Transcribed on 12/02/2014 14:48:31 by viktoria job# [id number] Confirmation #: [id number] cc: WICHO STARKEY MD Leonidas Huddleston MD - 12/02/2014 11:33 AM PDTThis office note has been dictated. Job ID# [id number] signed by Leonidas Huddleston MD at 12/02/2014 [...] [address] | [place] | [phone] | | [facility] | | [address] | | | - IMAGING | | [...] None. FINDINGS:Frontal weightbearing views of both | [facility] | | knees. A lateral view [...] ST. | [address] | [place], [place] | [phone] | | [facility] | | [address] | | | - IMAGING | | [...]
--- OUTSIDE RECORDS SUMMARY | ~2019-01-30 | XMS | Encounter Summary ---
Demographics + + + | Address | [address] [facility] | | | [place] [address] | + + + | Home Phone [...] Author | [facility] | | | and [place] | + + + | Organization | [facility] [...] Team Providers + +------+ + | Care Hat Blocking Operator Name | Role | Phone | + +------+ + | Wicho Starkey MD | PCP | | + +------+ + Encounter Details +--------+ + + + + | Date | Type | Department | Care Team | Description | +--------+ + + + + | 12/04/ | Hospital | [facility] | Leonidas Huddleston, | Right knee pain; | | 2014 | Encounter | MED CTR XRAY [address] | [address] | Swelling of right | | | | [place] | [place], [place] | knee joint | | | | [place] [address] | [address] | | | | | [phone] | | | +--------+ + + + [...] [address] | [place] | [phone] | | [facility] | | [address] | | | - IMAGING | | [...]
--- OUTSIDE RECORDS SUMMARY | ~2019-01-30 | XMS | Encounter Summary ---
Demographics + + + | Address | [address] [facility] | | | [place] [address] | + + + | Home Phone [...] [facility] | | | and [place] | + + + | Organization | [facility] | | | [...] Team Providers + +------+ + | Care Nuclear Worker Technician Name | Role | Phone | [...] | SLEEP DISORDER [address] | [address] | Dx) | | | | [address] [place] | [place] | | | | | [place] [address] | [address] | | | | | [phone] | | | +--------+---------+ + + + [...] AirSense 10 with nasal mask obtained from: [employer] in [place] pressure: 9-20 cm (lowered to 4-8 cm [...] not contact our office or [facility] Home [facility] in [place]. She thinks her power cord may have [...] Exam Assessment: Problem #1: OBSTRUCTIVE SLEEP APNEA ([id number]) This is controlled with CPAP. She improved her usage with her CPAP, but is still inconsist ent with it. Plan: 1. She is to continue with CPAP indefinitely. 2. She is to work toward wearing her CPAP 100% of the time she is asleep. I will follow up again in 2 months, sooner prn. Fifteen minutes were spent [id number], w ith the majority of time spent [...]
--- OUTSIDE RECORDS SUMMARY | ~2019-01-30 | XMS | Encounter Summary ---
Demographics + + + | Address | [address] [facility] | | | [place] [address] | + + + | Home Phone [...] | Author | [facility] | | | and [place] | + + + | Organization | [facility] | | | and [place] [...] Team Providers + +------+ + | Care Dynamotor Repairer Name | Role | Phone | [...] 2017 | | GASTROENTEROLOGY | [address], [place] | screen ) | | | | [address] [place] | [address] [place], [place] | | | | | [address] [place], [place] | [address] | | | | | [address] | | | | | | [phone] | | | +--------+ + + + [...]
--- OUTSIDE RECORDS SUMMARY | ~2019-01-30 | XMS | Encounter Summary ---
Demographics + + + | Address | [address] [facility] | | | [place] [address] | + + + | Home Phone [...] Author | [facility] | | | and [place] | + + + | Organization | [facility] | [...] Team Providers + +------+ + | Care Hard Tile Setter Name | Role | Phone | + [...] | SLEEP DISORDER [address] | [address] | | | | | [address] [place] | [place] | | | | | [place] [address] | [address] | | | | | [phone] | | | +--------+ + + + [...]
--- OUTSIDE RECORDS SUMMARY | ~2019-01-30 | XMS | Encounter Summary ---
Demographics + + + | Address | [address] [facility] | | | [place] [address] | + + + | Home Phone [...] | Author | [facility] | | | and [place] | + + + | Organization | [facility] | | | and [place] [...] Providers + +------+ + | Care Technical Analyst Name | Role | Phone | [...] + + | 01/28/ | [facility] | [facility] | Andre Ugarte | CONSUELO (obstructive | | 2015 | Visit | SLEEP DISORDER [address] | MD Jan [address] | sleep apnea) | | | | [address] [place] | [address] [place] | (Primary Dx) | | | | [place] [address] | [place] [address] | | | | | [phone] | [phone] | | | | | | | [...] to correctly use your CPAP. The r student services representative will be able to help you: Use the CPAP correctly Troubleshoot any problems that come up Learn to clean and maintain the device Adjust to regular use of the CPAP [id number] [employer]. [address] [place] [address]. All righ ts reserved. This information is [...] Polysomnography under "Media" se ction in the [facility] EMR. Definitions (The AASM Manual for [...]
--- OUTSIDE RECORDS SUMMARY | ~2019-01-30 | XMS | Encounter Summary ---
Demographics + + + | Address | [address] [facility] | | | [place] [address] | + + + | Home Phone [...] Author | [facility] | | | and [place] | + + + | Organization | [facility] | | | and [...] Team Providers + +------+ + | Care Floor Scraper Name | Role | Phone | + +------+ + | Abimael Devlin MD | PCP | | + +------+ + Encounter Details +--------+ + + + + | Date | Type | Department | Care Team | Description | +--------+ + + + + | 10/17/ | [facility] | [facility] | Andre Caballero | Right hip pain | | 2018 | Encounter | MED CTR [facility] | MD [address] [facility] | | | | | [address] [place] | [place] | | | | | [place] | [address] | | | | | [address] | | | | | | [phone] | | | +--------+ + + + [...] | | | Dictated and Signed by: Dmoinic Arvizu MD | | Electronically signed: 10/17/2017 [...]
--- OUTSIDE RECORDS SUMMARY | ~2019-01-30 | XMS | Encounter Summary ---
Demographics + + + | Address | [address] [facility] | | | [place] [address] | + + + | Home Phone [...] Author | [facility] | | | and [place] | + + + | Organization | [facility] | | [...] Providers + +------+ + | Care Qa Analyst Name | Role | Phone | [...] + | 01/12/ | Telephone | [facility] | Leonidas Huddleston, | Other | | 2016 | | PHYSIATRY [address] | [address] | (Pharmacy/Medication | | | | [place], | [place], [place] | verification) | | | | [place] [address] | [id number] | | | | | [phone] | | | +--------+ + + + [...]
--- OUTSIDE RECORDS SUMMARY | ~2019-01-30 | XMS | Encounter Summary ---
Demographics + + + | Address | [address] [facility] | | | [place] [address] | + + + | Home Phone [...] | Author | [facility] | | | and [place] | + + + | Organization | [facility] | | | and [...] Team Providers + +------+ + | Care Demurrage Agent Name | Role | Phone | + +------+ + PCP | Unavailable | + +------+ + Encounter Details +--------+ + + + + | Date | Type | Department | Care Team | Description | +--------+ + + + + | [facility] | | | | 2012 | Encounter | MED CTR XRAY [address] | | | | | | [place] | | | | | | [place] [address] | | | | | | [phone] | | | +--------+ + + + [...] Performed At | + + + | [facility] | [facility] | | Department [address] | [facility] | | [ rep ct street[address]] [ rep ct [facility] | | st zip] Signed | - IMAGING | | | | | Patient Name: LUZ MARIA LOCKWOOD Rojelio | | | Physician: AVEL : 1955 Age: 57 Sex: F Unit | | | #: [id number] Exam Date: 01/08/13 Location: | | | [facility] Report #: [id number] Page: | | | %(RAD)RES..mtdd.print.filter("pg") of %(RAD) | | | RES..mtdd.print.filter("tpg") | | | | | | Accession Number: [id number] | | | MRI LUMBAR SPINE CLINICAL [...] Transcribed Date/Time: 01/08/2013 17:54 | | | Soap Worker: <<Signature on File>> | | | | | | Patrick Olivares MD01/09/13 2912 <Electronically signed by Patrick Cox | | | [place] W[place]S> Patrick Olivares MD 01/08/13 5233 | | | Soap Worker: [employer] Mlrfxmcjnxuuf62/28/13 0916 | | | MD Trevor Blue MD | | + + + + + + + + | Performing | Address | City/[facility]/Zipcode | Phone Number | | Organization | | | | + + + + + | [address] | [address] | [place] | [phone] | | [facility] | | [address] | | | - IMAGING | | | | + + + + + documented in this encounter Visit Diagnoses Not on filedocumented in this encounter
--- OUTSIDE RECORDS SUMMARY | ~2019-01-30 | XMS | Encounter Summary ---
Demographics + + + | Address | [address] [facility] | | | [place] [address] | + + + | Home Phone [...] Team Providers + +------+ + | Care Officer Captain Name | Role | Phone | + [...] | | | [address] | [place] [address] | (non-ST elevated | | 11/11/ | | [place], [place] | [phone] | myocardial | | 2011 | | [address] | | infarction) ([facility]); | | | | [phone] | | Hyponatremia; | | | | | | Bipolar disorder, | | | | | | unspecified ([facility]); | | | | | | Hyposmolality and/or | | | | | | hyponatremia; | | | | | | Leucocytosis; | | | | | | Paranoid | | | | | | schizophrenia, | | | | | | chronic condition | | | | | | ([facility]); Seizure | | | | | | disorder ([facility]) | +--------+ + + + [...] Summaries by Marli Mejia RN at 11/12/11 7029 Author: Marli Mejia RN Service: (none) Author Type: Registered Nurse Filed: 11/12/11 2548 Date of Service: 11/12/111305 Status: Signed Patient Flow Coordinator: Marli Mejia RN (Registered Nurse) Pt provided [...] Summaries by Rhoda Simpson MD at 11/12/11 1251 Author: Rhoda Simpson MD Service: (none) Author Type: Physician Filed: 11/18/11926 Date of Service: 11/12/11 4129 Status: Signed Patient Flow Coordinator: Rhoda Simpson MD (Physician) [facility] Service: Hospitalist Discharge Summary Date of Admission: [...] methamphetami ne use, who was transferred [facility] after having a seizure. Please refer t o complete H&P by Dr Singleton for further details. 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 Patient reportedly had sei zures and palpitations [...] 11/12/2011 EGFR >60 11/12/2011 PLAN D/C to nursing home. Disposition: [facility] Condition: Stable Code Status: Full Code [...] Date of Service: 11/12/11 1340 Status: Signed Patient Flow Coordinator: Marli Mejia RN (Registered Nurse) Security brought pt belongings up to pt. [facility] called and they have her set of keys. P t notified. oster Harriett MSW - 11/12/2011 1:01 PM PDT Progress Notes by BERNARD Hugo at 11/12/11 1301 Author: BERNARD Hugo Service: (none) Author Type: Molded Candles Wicker Filed: 11/12/11 1308 Date of Service: 11/12/11 1301 Status: Signed Patient Flow Coordinator: BERNARD Hugo (Molded Candles Wicker) Patient reports she lives in a nursing home, has [place] medicaid for transportation. Pt disc harging back to nursing home this afternoon. CM called [facility] transportation to [facility], provided pt room # address and this CM's contact number. [facility] stated they would send transport as soon as they could find someone. CM alerted RN of dcp approxim ate time. No other anticipated dc needs at this time. onversion Transact ion, Provider Unknown - 11/12/2011 9:57 AM PDTFormatting of this note might be different fr om the original. Progress Notes by Melissa Estrella at 11/12/11956 Author: Melissa Estrella Service: (none) Author Type: Laborer [employer] Filed: 11/12/11958 Date of Service: 11/12/11956 Status: Signed Patient Flow Coordinator: Melissa Estrella ([employer]) Pt didn't remember requesting a visit. Wanted prayer for her health. Shared she has difficu lty forgiving herself. Wants additional instrument repairer helper visits while she is in the hospital. onver [place] Transaction, Provider Unknown - 11/11/2011 4:26 AM PDT Progress Notes by Gelacio Bhandari RPH at 11/11/11425 Author: Gelacio Bhandari RPH Service: (none) Author Type: Pharmacist Filed: 11/11/11425 Date of Service: 11/11/11425 Status: Signed Patient Flow Coordinator: Gelacio Bhandari RPH (Pharmacist) Note ccl 115ml/min [...] + + documented in this encounter Results [facility] Myocardial Perfusion Mult SPECT (11/12/2011 9:59 AM PDT) + + | Specimen | + + | | + + + + + | Narrative | Performed At | + + + | LUZ MARIA LOCKWOOD [facility] MYOCARDIAL PERFUSION SPECT - STRESS AND REST [...] + | This procedure was resulted in [place] (the cardiology system). Please | | | see the Media tab in Chart Review to see the result for this | | | procedure. | | + + + + + | Procedure Note | + + | Ever Almazan Conversion - 11/04/2018 6:12 AM PDT This procedure was resulted in [place] | | (the cardiology system). Please seethe [...]
--- OUTSIDE RECORDS SUMMARY | ~2019-01-30 | XMS | Encounter Summary ---
Demographics + + + | Address | [address] [facility] | | | [place] [address] | + + + | Home Phone [...] + | Author | [facility] | | | and [place] | + + + | Organization | [facility] | | | and [place] | [...] Providers + +------+ + | Care Laboratory Assistant Name | Role | Phone | [...] PHYSIATRY [address] | MD [address] | headache; | | | | [place], | [place], [place] | Fibromyalgia | | | | [place] [address] | [address] | | | | | [phone] | | | +--------+ + + + [...]
--- OUTSIDE RECORDS SUMMARY | ~2019-01-30 | XMS | Encounter Summary ---
Demographics + + + | Address | [address] [facility] | | | [place] [address] | + + + | Home Phone [...] Author | [facility] | | | and [place] | + + + | Organization | [facility] | | [...] Providers + +------+ + | Care Hand Coremaker Name | Role | Phone | + [...] + | 04/14/ | Office | [facility] | Sundeep Ba PA | CONSUELO on CPAP (Primary | | 2016 | Visit | SLEEP DISORDER [address] | [address] | Dx) | | | | [address] [place] | [place] | | | | | [place] [address] | [address] | | | | | [phone] | | | +--------+---------+ + + + [...] AirSense 10 with nasal mask obtained from: [employer] in [place] pressure: 9-20 cm (lowered to 4-8 cm [...] Exam Assessment: Problem #1: OBSTRUCTIVE SLEEP APNEA (QPI24-C55.33) This is controlled with CPAP. She has [...]
--- OUTSIDE RECORDS SUMMARY | ~2019-01-30 | XMS | Encounter Summary ---
Demographics + + + | Address | [address] [facility] | | | [place] [address] | + + + | Home Phone [...] Author | [facility] | | | and [place] | + + + | Organization | [facility] [...] Providers + +------+ + | Care Hand Therapist Name | Role | Phone | [...] | Sensorineura | [address] | [place] | | | | | l hearing | [address] | [place], | | | | | loss, | [place] | [place] [address] | | | | | bilateral | [place], [place] | Phone: | | | | | Benign | [address] | [phone] | | | | | paroxysmal | Phone: | Fax: | | | | | positional | [phone] | [phone] | | | | | vertigo | Fax: | | | | | | [phone] | [phone] | | | | | | (ICD-9-CM) [...] [place], | unspecified | | | | [place], [place] | [place] [address] | laterality (Primary | | | | [address] | [phone] | Dx); Sensorineural | | | | [phone] | | hearing loss, | | | [...]
--- OUTSIDE RECORDS SUMMARY | ~2019-01-30 | XMS | Encounter Summary ---
Demographics + + + | Address | [address] [facility] | | | [place] [address] | + + + | Home Phone [...] | [facility] | | | and [place] | + + + | Organization | [facility] | [...] Team Providers + +------+ + | Care Bsa Officer Name | Role | Phone | [...] + + | 10/05/ | Telephone | [facility] | Katy Huddlestonterrance [place], | Other | | 2014 | | PHYSIATRY [address] | MD [address] | | | | | [place], | [place], [place] | | | | | [place] [address] | [address] | | | | | [phone] | | | +--------+ + + + [...]
--- OUTSIDE RECORDS SUMMARY | ~2019-01-30 | XMS | Encounter Summary ---
Demographics + + + | Address | [address] [facility] | | | [place] [address] | + + + | Home Phone [...] | Author | [facility] | | | and [place] | + + + | Organization | [facility] | [...] Team Providers + +------+ + | Care Brazing Furnace Operator Name | Role | Phone | [...] | | | | | | | [place] | | | | | | | COLONOSCOPY | | | | | | | FLX DX | | | | | | | W/COLLJ SPEC | | | | | | | WHEN PFRMD | | | | | | | ND | | | | | | | COLONOSCOPY | | | | | | | W/BIOPSY | | | | | | | SINGLE/MULTI | | | | | | | PLE ND | | | | | | | COLSC FLX | | | | | | | W/RMVL OF | | | | | | | TUMOR POLYP | | | | | | | LESION SNARE | | | | | | | TQ ND | | | | | | | [...] | | | | | [address] | [facility] | | | | | [place] | [place] [address] | | | | | [address] | [phone] | | | | | [phone] | | | +--------+ + + + [...] 11:43 | | | | | Starting [facility] 10/14/16 at 1143, | | AM [...]
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
--- OUTSIDE RECORDS SUMMARY | ~2019-01-30 | XMS | Encounter Summary ---
Demographics + + + | Address | [address] [facility] | | | [place] [address] | + + + | Home Phone [...] + | Author | [facility] | | | and [place] | + + + | Organization | [facility] | | | and [...] Team Providers + +------+ + | Care Durable Medical Equipment Technician Name | Role | Phone | [...] Right hip | Lisa, | [address] | | | | | pain | Paco Cox MD | [place], | | | | | Procedures | [address] | [place] | | | | | [place] Asp | [place] | [address] | | | | | and/or Inj | [place], [place] | Phone: | | | | | Major Joint | [address] | [phone] | | | | | Right CHG | Phone: | Fax: | | | | | FLUOROSCOPIC | [phone] | [phone] | | | | | GUIDANCE | Fax: | | | | | | NEEDLE | [phone] | | | | | | PLACEMENT | | | | | | | ADD ON NM | | | | | | | [...] | (Primary Dx) | | | | [place], | [place], [place] | | | | | [place] [address] | [address] | | | | | [phone] | | | +--------+ + + + [...]
--- OUTSIDE RECORDS SUMMARY | ~2019-01-30 | XMS | Encounter Summary ---
Demographics + + + | Address | [address] [facility] | | | [place] [address] | + + + | Home Phone | | + + + | Preferred Language | Unknown | + + + | Marital Status | | + + + | Sabianism Affiliation | 1013 | + + + | Race | Unknown | + + + | Ethnic Group | Unknown | + + + Author + + + | Author | [facility] | | | and [place] | + + + | Organization | [facility] | | [...] Team Providers + +------+ + | Care Copper Plater Name | Role | Phone | + [...] PHYSIATRY [address] | MD [address] | | | | | [place], | [place], [place] | | | | | [place] [address] | [address] | | | | | [phone] | | | +--------+ + + + [...]
--- OUTSIDE RECORDS SUMMARY | ~2019-01-30 | XMS | Encounter Summary ---
Demographics + + + | Address | [address] [facility] | | | [place] [address] | + + + | Home Phone [...] | Author | [facility] | | | and [place] | + + + | Organization | [facility] | [...] Team Providers + +------+ + | Care Ship Scaler Name | Role | Phone | + +------+ + | Wicho Starkey MD | PCP | | + +------+ + Encounter Details +--------+ + + + + | Date | Type | Department | Care Team | Description | +--------+ + + + + | 12/04/ | Hospital | [facility] | Leonidas Huddleston, | Right knee pain; | | 2014 | Encounter | MED CTR XRAY [address] | [address] | Swelling of right | | | | [place] | [place], [place] | knee joint | | | | [place] [address] | [address] | | | | | [phone] | | | +--------+ + + + [...] Dictated | | | and Signed by: Ptarick Olivares MD Electronically signed: | | | [...] [address] | [place] | [phone] | | [facility] | | [address] | | | - IMAGING | | [...]
--- OUTSIDE RECORDS SUMMARY | ~2019-01-30 | XMS | Encounter Summary ---
Demographics + + + | Address | [address] [facility] | | | [place] [address] | + + + | Home Phone [...] Author | [facility] | | | and [place] | + + + | Organization | [facility] | [...] Team Providers + +------+ + | Care Moving Picture Producer Name | Role | Phone | [...] [place] | | | | | | [place] [address] | [place], [place] | | | | | | Phone: | [address] | | | | | | [phone] | Phone: | | | | | | Fax: | [phone] | | | | | | [phone] | Fax: | | | | | | | [phone] | +--------+ + + + + + [...] | | | | [address] | [place], [place] | | | | | | [place], | [address] Phone: | | | | | | [place] [address] | [phone] | | | | | | Phone: | Fax: | | | | | | [phone] | [phone] | | | | | | Fax: | | | | | | | [phone] | | +--------+--------+ + + + + Encounter Details +--------+---------+ + + + | Date | Type | Department | Care Team | Description | +--------+---------+ + + + | 09/01/ | [facility] | [facility] Federico Andre | Primary | | 2019 | Visit | ORTHOPEDIC SURGERY | MD [address] [facility] | osteoarthritis of | | | | [address] [facility] | [place], [place] | both knees (Primary | | | | [place] | [address] | Dx) | | | | [address] | | | | | | [phone] | | | +--------+---------+ + + + [...] for her to start aqua therapy through [facility] in [place], [place] where she lives. We have [...]
--- OUTSIDE RECORDS SUMMARY | ~2019-01-30 | XMS | Encounter Summary ---
Demographics + + + | Address | [address] [facility] | | | [place] [address] | + + + | Home Phone [...] | Author | [facility] | | | and [place] | + + + | Organization | [facility] | | | and [place] [...] Providers + +------+ + | Care Metal Fabricating Supervisor Name | Role | Phone | [...] + + | 03/15/ | Office | [facility] | Andre Caballero | Primary | | 2019 | Visit | ORTHOPEDIC SURGERY | MD [address] [facility] | osteoarthritis of | | | | [address] [facility] | [place] | right hip (Primary | | | | [place], [place] | [address] | Dx) | | | | [address] | | | | | | [phone] | | | +--------+---------+ + + + [...] cessation. She also will work diligently on [employer] and will be seen back or office [...]
--- OUTSIDE RECORDS SUMMARY | ~2019-01-30 | XMS | Encounter Summary ---
Demographics + + + | Address | [address] [facility] | | | [place] [address] | + + + | Home Phone [...] Author | [facility] | | | and [place] | + + + | Organization | [facility] [...] Team Providers + +------+ + | Care Steel Layer Name | Role | Phone | [...] Medicine | Obstructive | Andre Arnold | [place] [address] [address] | | | Required | | sleep apnea | MD David Montoya | [place] | | | | | (adult) | [place] | [place], | | | | | (pediatric) | [place] | [place] [address] | | | | | Bipolar I | [place], [place] | Phone: | | | | | disorder, | [address] | [phone] | | | | | most recent | Phone: | Fax: | | | | | episode (or | [phone] | [phone] | | | | | current) | Fax: | | | | | | unspecified | [phone] | | | | | | Type [...] | | | | | | | [place] POLYSOM | | | | | | | 6/>YRS SLEEP | | | | | | | 4/> ADDL | | | | | | | [place]ES[place] ATTND | | | | | | | [place] POLYSOM | | | | | | | 6/>YRS SLEEP | | | | | | | W/CPAP 4/> | | | | | | | ADDL [place] | | | | | | | ATTND | | | | | | | Having [id number] | | | | | | | not [address] | | | +--------+ + + + + + Encounter Details +--------+ + + + + | Date | Type | Department | Care Team | Description | +--------+ + + + + | 12/03/ | Hospital | [facility] | Andre Ugarte | Obstructive sleep | | 2014 | Encounter | MED CTR SLEEP | MD Jan [address] | apnea (adult) | | | | [address] [place] | [facility] | (pediatric) (Primary | | | | [place], [place] | [place] [address] | Dx); [place] | | | | [address] | [phone] | (obstructive sleep | | | | [phone] | | apnea) | +--------+ + + [...]
--- OUTSIDE RECORDS SUMMARY | ~2019-01-30 | XMS | Encounter Summary ---
Demographics + + + | Address | [address] [facility] | | | [place] [address] | + + + | Home Phone [...] [facility] | | | and [place] | + + + | Organization | [facility] | [...] Providers + +------+ + | Care Customer Quality Engineer Name | Role | Phone | [...] | | | | | | | [place] | | | | | | | COLONOSCOPY | | | | | | | FLX DX | | | | | | | W/COLLJ SPEC | | | | | | | WHEN PFRMD | | | | | | | [place] | | | | | | | COLONOSCOPY | | | | | | | W/BIOPSY | | | | | | | SINGLE/MULTI | | | | | | | PLE [place] | | | | | | | COLSC FLX | | | | | | | W/RMVL OF | | | | | | | TUMOR POLYP | | | | | | | LESION SNARE | | | | | | | TQ [place] | | | | | | | [...] | | | | | [address] | [facility] | | | | | [place] | [place] [address] | | | | | [address] | [phone] | | | | | [phone] | | | +--------+ + + + [...] 11:43 | | | | | Starting [facility] 10/14/16 at 1143, | | AM PDT [...]
--- OUTSIDE RECORDS SUMMARY | ~2019-01-30 | XMS | Encounter Summary ---
Demographics + + + | Address | [address] [facility] | | | [place] [address] | + + + | Home Phone [...] [facility] | | | and [place] | + + + | Organization | [facility] | | [...] Team Providers + +------+ + | Care Golf Instructor Name | Role | Phone | [...] | | | | [address] | [place] | | | | | [place], [place] | [address] | | | | | [address] | [phone] | | | | | [phone] | | | +--------+ + + + [...]
--- OUTSIDE RECORDS SUMMARY | ~2019-01-30 | XMS | Encounter Summary ---
Demographics + + + | Address | [address] [facility] | | | [place] [address] | + + + | Home Phone [...] + | Author | [facility] | | | and [place] | + + + | Organization | [facility] | | [...] Providers + +------+ + | Care Customer Assistance Representative Name | Role | Phone | [...] | Leonidas [place] MD | [address] | | | | | pain | [address] | [place], | | | | | Swelling of | [address] | [place] | | | | | right knee | [place], | [address] | | | | | joint | [place] [address] | Phone: | | | | | Procedures | Phone: | [phone] | | | | | MRI Knee | [phone] | Fax: | | | | | Right wo | Fax: | [phone] | | | | | Contrast | [phone] | | +--------+--------+ + + + + [...] [facility] [place] | Leonidas Huddleston, | Bilateral occipital | | 2015 | Visit | PHYSIATRY [address] | [address] | neuralgia (Primary | | | | [address] [place], | [place], [place] | Dx); Chronic daily | | | | [place] [address] | [address] | headache; | | | | [phone] | | Fibromyalgia; Right | | | [...] - 12/02/2014 12:38 PM PDT [facility] [address] [facility] [address] OFFICE NOTE LEONIDAS HUDDLESTON JR, MD Patient: LUZ MARIA LOCKWOOD Admitting: MR #: [id number] LOC: PT TYPE: Adm Date: 12/02/2014 : [...] headaches. She has been on gabape ntin skilled nursing. She is not sure that it offers [...] triceps, wrist dorsiflexion, finger abduction and hand marble rubber. DATABASE: No new imaging or laboratory data [...] or may not q ualify for the [facility] care. If she is approved for [facility] care, we will plan to move for price with greater occipital nerve blocks through [facility] care. If she cannot receive [facility] care, she will return to clinic in the future. We would then consider Botox chemodener vation of facial and neck innervated muscles under needle EMG guidance for the treatment of chronic daily headaches. She has been on gabapentin skilled nursing. She does not believe it is helping. [...] her. If she cannot receive approval for [facility] care, we will consider glen ating [...] Transcribed on 12/02/2014 14:48:31 by viktoria job# [id number] Confirmation #: [id number] cc: WICHO STARKEY MD Leonidas Huddleston MD - 12/02/2014 11:33 AM PDTThis office note has been dictated. Job ID# [id number] signed by Leonidas Huddleston MD at 12/02/2014 [...] Axial proton density fat sat, sagittal | [facility] | | proton density, coronal proton [...] [address] | [place] | [phone] | | [facility] | | [address] | | | - IMAGING | | [...] None. FINDINGS:Frontal weightbearing views of both | [facility] | | knees. A lateral view [...] ST. | [address] | [place], [place] | [phone] | | [facility] | | [address] | | | - IMAGING | | [...]
--- OUTSIDE RECORDS SUMMARY | ~2019-01-30 | XMS | Encounter Summary ---
Demographics + + + | Address | [address] [facility] | | | [place] [address] | + + + | Home Phone [...] Author | [facility] | | | and [place] | + + + | Organization | [facility] | [...] Team Providers + +------+ + | Care Landscaping Specialist Name | Role | Phone | [...] 2016 | | GASTROENTEROLOGY | [address] [place], [place] | | | | | [address] [place] | [address] [place] | | | | | [address] [place], [place] | [address] | | | | | [address] | | | | | | [phone] | | | +--------+ + + + [...]
--- OUTSIDE RECORDS SUMMARY | ~2019-01-30 | XMS | Encounter Summary ---
Demographics + + + | Address | [address] [facility] | | | [place] [address] | + + + | Home Phone | | + + + | Preferred Language | Unknown | + + + | Marital Status | | + + + | Pentecostalism Affiliation | 1013 | + + + | Race | Unknown | + + + | Ethnic Group | Unknown | + + + Author + + + | Author | [facility] | | | and [place] | + + + | Organization | [facility] [...] Team Providers + +------+ + | Care Managing Jeweler Name | Role | Phone | + [...] | | | [address] [facility] | | | | | | [address] [place] | | | | | | [address] | | | | | | [phone] | | | +--------+ + + + [...]
--- OUTSIDE RECORDS SUMMARY | ~2019-01-30 | XMS | Encounter Summary ---
Demographics + + + | Address | [address] [facility] [address] | | | [place] [address] | + + + | Home Phone [...] Author | [facility] | | | and [place] | + + + | Organization | [facility] | | [...] Providers + +------+ + | Care Special Education Associate Name | Role | Phone | [...] + + | 07/13/ | Office | [facility] | Sundeep Ba PA | CONSUELO on CPAP (Primary | | 2016 | Visit | SLEEP DISORDER 401 | [address] | Dx) | | | | [place] [address] [place] | [place] | | | | | [place] [address] | [address] | | | | | [phone] | | | +--------+---------+ + + + [...] AirSense 10 with nasal mask obtained from: [facility] [place] pressure: 9-20 cm (lowered to 4-8 cm [...] Exam Assessment: Problem #1: OBSTRUCTIVE SLEEP APNEA ([id number]) This is controlled with CPAP. She had [...] months, sooner prn. Fifteen minutes were spent [id number], w ith the majority of time spent in counseling. Sundeep Ba PA-C cc: Teena Busch, [facility]- documented in this enco unter Plan of Treatment Not on filedocumented as of this encounter Visit Diagnoses + + | Diagnosis | + + | CONSUELO on CPAP - Primary Obstructive sleep apnea (adult) (pediatric) | + + documented in this encounter
--- OUTSIDE RECORDS SUMMARY | ~2019-01-30 | XMS | Encounter Summary ---
Demographics + + + | Address | [address] [facility] [address] | | | [place] [address] | + + + | Home Phone [...] Author | [facility] | | | and [place] | + + + | Organization | [facility] | | [...] Providers + +------+ + | Care Lead Nitrate Processor Name | Role | Phone | [...] [address] | | | | | [place], | [place] | | | | | [place] [address] | [id number] | | | | | [phone] | | | +--------+ + + + [...]
--- OUTSIDE RECORDS SUMMARY | ~2019-01-30 | XMS | Encounter Summary ---
Demographics + + + | Address | [address] [facility] | | | [place] [address] | + + + | Home Phone [...] | Author | [facility] | | | and [place] | + + + | Organization | [facility] | | | [...] Team Providers + +------+ + | Care Dredge Deckhand Name | Role | Phone | + [...] + + | 09/03/ | Telephone | [facility] [place] | Katy Huddlestonterrance [place], | Other | | 2014 | | PHYSIATRY [address] | MD [address] | | | | | [place], | [place], [place] | | | | | [place] [address] | [address] | | | | | [phone] | | | +--------+ + + + [...]
--- OUTSIDE RECORDS SUMMARY | ~2019-01-30 | XMS | Encounter Summary ---
Demographics + + + | Address | [address] [facility] [address] | | | [place] [address] | + + + | Home Phone [...] + | Author | [facility] | | | and [place] | + + + | Organization | [facility] | [...] + +------+ + | Care Motor Equipment Captain Name | Role | Phone | + +------+ + | Teena Busch NP | PCP | | + +------+ + Encounter Details +--------+---------+ + + + | Date | Type | Department | Care Team | Description | +--------+---------+ + + + | 03/10/ | Office | [facility] | Sundeep Ba PA | CONSUELO on CPAP (Primary | | 2015 | Visit | SLEEP DISORDER [address] | [address] | Dx) | | | | [address] [place] | [place] | | | | | [place] [address] | [address] | | | | | [phone] | | | +--------+---------+ + + + [...] counseling. Sundeep Ba PA-C cc: Teena Busch [facility] P STdocumented in this encounter Plan of Treatment Not on filedocumented as of this encounter Visit Diagnoses + + | Diagnosis | + + | CONSUELO on CPAP - Primary Obstructive sleep apnea (adult) (pediatric) | + + documented in this encounter
[~2019-01-30 20:48] MED LIST changes: +COLACE100 MG PO; +MAGNESIUM200 MG PO
--- OUTSIDE RECORDS SUMMARY | 2019-01-30 20:52 | XMS ---
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 No recent Security Events currently on file CRITERIA MET - [facility] [place] - PDMP CARE PROVIDERS SANJEEV BREAUX [facility] 05/23/2018-Current PHONE: [phone] [facility] 07/12/2016-Current PHONE: [phone] Fernie Higgins Current PHONE: Unknown Jenniffer Ruiz Current Orthopedic Surgery \T\ [facility] PHONE: Unknown Guidelines Source: Román Gonzales Guidelines Date: 06/29/2018 Care Coordination: Currently engaged in mental health services with [employer].\T\nbsp; Please contact [employer] with mental health concerns.\T\nbsp; [place] [facility]: \T\nbsp; [phone]\T\nbsp; \T\nbsp; [place]: [phone]. Care History Medical/Surgical 06/14/2018 [facility] CASE MANAGEMENT REFERRAL MADE- PATIENT HAS [facility] AND NO PCP. E[facility] [address] [facility] TOTAL 8 NOTE: Visits indicate total known visits. 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 - Allergy status to narcotic agent status - Major depressive disorder, single episode, unspecified - Umbilical hernia without obstruction or gangrene - 1 Type 2 diabetes mellitus without complications - 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 - Essential (primary) hypertension 10/02/2018 19:19 [facility]STA [facility] [place] TYPE: Emergency COMPLAINT: - ABD PAIN DIAGNOSES: - Allergy status to oth drug/meds/biol subst status - Other penitentiary (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 - 1 Type 2 diabetes mellitus without complications - Essential (primary) hypertension - Unspecified abdominal pain - Other chronic pain - Major depressive disorder, single episode, unspecified - Allergy status to narcotic agent status 10/02/2018 02:20 [facility] Thurman [place] TYPE: Emergency COMPLAINT: - ABDOMINAL PAIN DIAGNOSES: - Essential (primary) hypertension - 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 - Hypo-osmolality and hyponatremia - 1 Type 2 diabetes mellitus without complications - Allergy status to oth drug/meds/biol subst status - Ventral hernia without obstruction or gangrene - Unspecified abdominal pain - Allergy status to narcotic agent status - Major depressive disorder, single episode, unspecified 06/28/2018 00:56 [facility] Thurman [place] TYPE: Emergency COMPLAINT: - COUGH,NAUSEA,SOB DIAGNOSES: - long term care social worker (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 of opiate analgesic - Allergy status to narcotic agent status - Essential (primary) hypertension - 1 Type 2 diabetes mellitus without complications - Personal history of nicotine dependence - Allergy status to oth drug/meds/biol subst status - Acute bronchitis, unspecified - Cough - Other penitentiary (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 - Post-traumatic stress disorder, unspecified - long term care social worker (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 of oral 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 drugs - Major depressive disorder, single episode, unspecified 06/13/2018 19:28 [facility] [place] TYPE: Emergency COMPLAINT: - ABD PAIN/CRAMPING DIAGNOSES: - 1 Type 2 diabetes mellitus without complications - Umbilical hernia without obstruction or gangrene - 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 - Unspecified abdominal pain - Major depressive disorder, single episode, unspecified - Allergy status to narcotic agent status - Essential (primary) hypertension - Acquired absence of both cervix and uterus - Allergy status to oth drug/meds/biol subst status - Acquired absence of other specified parts of digestive tract - Post-traumatic stress disorder, unspecified - Personal history of nicotine dependence 05/22/2018 09:12 CHRISTA Burrell TYPE: Emergency COMPLAINT: - R ARM PAIN/INJURY/MSE TO CLINIC DIAGNOSES: - Pain in right arm 03/27/2018 12:22 [facility] TYPE: Emergency DIAGNOSES: - back pain - Sciatica, unspecified side INPATIENT VISIT TRACKING (12 MO.) No inpatient visits to display in this time frame [email or web address]
--- NOTE | 2019-01-30 23:45 | NUR ---
PT ARRIVED FROM ED VIA STRETCHER, SHE IS ALERT AND ORIENTED AND ON RA. SHE REPORTS PAIN 3/10 AT THIS TIME AND TOLERABLE. SHE IS ORIENTED TO THE ROOM AND DENIES FURTHER NEEDS AT THIS TIME.
--- NOTE | 2019-01-31 00:30 | NUR ---
ASSESSMENT COMPLETE. UMBILICAL HERNIA IS VISBALE AND PT'S PAIN IS UNDER CONTROL AT THIS TIME. PT REPORTS SOME NAUSEA AND HEADACHE COOL WASH CLOTH PROVIDED. PT REPORTS SOME DIZZINESS TODAY, ADVISED HER TO USE CALL LIGHT WHEN SHE NEEDS TO GET UP TO USE THE RESTROOM. PT DENIES FURTHER NEEDS AT THIS TIME. CALL LIGHT IS WITHIN REACH.
--- NOTE | 2019-01-31 01:39 | NUR ---
ADMINISTERED DILAUDID FOR PAIN, PT DENIES FURTHER NEEDS AT THIS TIME. SHE IS BRUSHING HER TEETH THEN WILL TRY TO SLEEP. CALL LIGHT IS CLOSE.
--- NOTE | 2019-01-31 02:36 | NUR ---
PT IS RESTING WITH EYES CLOSED, RR IS EVEN AND NONLABORED. CALL LIGHT IS WITHIN REACH.
--- NOTE | 2019-01-31 03:03 | NUR ---
CALL LIGHT ANSWERED. 1 SBA TO THE BATHROOM AND BACK TO BED. CALL LIGHT IN REACH. NO OTHER NEEDS AT THIS TIME.
--- NOTE | 2019-01-31 05:18 | NUR ---
ADMINISTERED DILAUDID AND ZOFRAN TO PT AND ASSISTED HER TO THE RESTROOM AND BACK TO BED. CALL LIGHT IS CLOSE.
--- NOTE | 2019-01-31 05:32 | NUR ---
PT IS HAVING A MIGRANE, SPOKE WITH DR WOMACK ABOUT ADDING SUMATRIPTAN. HE WILL ADD IT FOR HER.
[2019-01-31] MEDS ORDERED: PENICILLIN V P500 MG PO (07:10)
[2019-01-31] MEDS ORDERED: DULOXETINE HCL60 MG PO (07:12)
[2019-01-31] MEDS ORDERED: LAMOTRIGINE200 MG PO (07:13)
[2019-01-31] MEDS ORDERED: CYCLOBENZAPRINE5 MG PO (07:18)
--- NOTE | 2019-01-31 07:33 | NUR ---
REPORT RECEIVED FROM AVTAR DUKE. PT RESTING IN BED. PT REPOERTS / PAIN AND HAS JUST RECEIVED MEDICAITON FOR HEADACHE. PHARAMCY CALLED REGARDING MEDICAITONS. PHARAMCIST STATES THERE ARE DISCREPANCIES BETWEEN WHAT THE PATIENTS PHARMACY HAS FILLED FOR THE PATIENT AND WHAT THE CHART SAYS PT IS TAKING. PHARAMCIST WILL CLARIFY MEDICAITONS WITH MD. ALL MEDICATIONS TO BE HELD UNTIL CLARIFICATIONS HAVE BEEN MADE. PT DRINKING BROTH. NO ADDITIONAL REQUESTS OR COMPLAINTS AT THIS TIME. CALL LIGHT WITHIN REACH.
--- NOTE | 2019-01-31 07:53 | CONS ---
[facility] [address], [place] [address] Signed DATE OF CONSULTATION: 01/31/2019 CHIEF COMPLAINT: Generalized abdominal pain. HISTORY OF PRESENT ILLNESS: Luz Maria is a 63-year-old female, who has been through various abdominal surgeries. These include tubal ligation, hysterectomy, and lysis of adhesions. Following the lysis of adhesions, the wound was left open due to infection. It is now healed in secondarily. However, she developed a reducible but painful and symptomatic bulging at the level of the umbilicus. She has had at least 2 CT scans in the last few months to evaluate this area. She has a 3-4 cm periumbilical incisional hernia. It contains fat and on one occasion it did contain small intestine. Fortunately, she has had no symptoms of obstruction. Her sodium level has been running low, so she has been on sodium tablets through her primary care provider in order to get ready for her upcoming incisional hernia surgery. We had planned to do that tomorrow and she was taking her bowel prep last night. She developed diffuse crampy abdominal pain with increased pain at the umbilical area, so she came to emergency room for evaluation. On this occasion, the sodium is low again at 124. We decided to admit her to the hospital for ongoing medical evaluation and treatment and resolution of the hyponatremia, so we can proceed with her incisional hernia here in a few days. She is actually dealing with this for several months now. Overnight she has done well except she has a migraine headache. ALLERGIES: Alprazolam, azithromycin, codeine, and quetiapine. MEDICATIONS: Aripiprazole, Banophen, calcium, cyclobenzaprine, dicyclomine, duloxetine, famotidine, hydrochlorothiazide, Schroeder, lisinopril, magnesium oxide, metformin, prazosin, ProAir, sumatriptan, and vitamin D. PAST MEDICAL HISTORY: Includes obesity, hypertension, periumbilical incisional hernia, cervical dystocia, type 2 diabetes, tear of her medial meniscus, degenerative disk disease, migraine headaches, chronic neck pain, occipital neuralgia, fibromyalgia, depression, diverticulitis. PAST SURGICAL HISTORY: Includes the left wrist fracture, foot fracture, appendectomy, biliary tract surgery, cholecystectomy, hysterectomy, tubal ligation, cervical arthrodesis, back fusion at L5-L6 and cervical spine fusion, and knee arthroscopy in June 2015. SOCIAL HISTORY: She does not smoke or chew tobacco. She does not drink. She does not use IV drugs. Electronically Signed By: OCTAVIO WOMACK MD 01/31/19 0753 PATIENT NAME: LUZ MARIA LOCKWOOD CONSULTATION DATE OF : 53 REPORT #: [id number] PHYSICIAN: OCTAVIO WOMACK MD PCP: BAIMAEL DEVLIN REPORT IS CONFIDENTIAL AND NOT TO BE RELEASED WITHOUT AUTHORIZATION [address] [address] Signed She is disabled from her schizoaffective disorder. She is with 3 children. Her primary care physician is Dr. Abimael Devlin. Her esthetician makeup artist is Dr. Patrick England. Her friend is Waqar Campuzano at [phone]. FAMILY HISTORY: Cervical cancer in her mother, reacted to anesthetics. Her dad of a heart attack and hypertension. Mom also had stomach cancer and hypertension. Her daughter had a stroke and seizures. REVIEW OF SYSTEMS: Luz Maria had 10 systems reviewed and we had just seen her in the office a few days ago. She is actually doing well except the bowel prep gave her generalized crampy abdominal pain and her sodium level is low once again. PHYSICAL EXAMINATION: VITAL SIGNS: Blood pressure 128/77, heart rate 84, respiratory rate 14, temperature is 97.8, she is 94% on room air. She is 5 feet 9 inches, 118 kg. GENERAL: Luz Maria is a 63-year-old female, who generally appears healthy and at her stated age. LUNGS: Clear to auscultation. HEART: Regular rate and rhythm with a 3/6 systolic ejection murmur. ABDOMEN: Obese, but soft, not particularly tender this morning. She does have the periumbilical hernia, probably 3 or 4 cm in diameter, it is reducible this morning. LABORATORY DATA: Her white blood cell count is 12, hemoglobin 12, neutrophils 56. Sodium is 124, potassium 4.1, BUN 10, creatinine 0.77, glucose 103. Urinalysis unremarkable. Calcium at 10.5, albumin 4.5. Liver function tests are negative. ASSESSMENT/PLAN: Luz Maria is a 63-year-old female, who presents with a reducible but symptomatic periumbilical incisional hernia. Unfortunately, she remains hyponatremic despite outpatient therapy through her primary care provider. She was also having significant crampy abdominal pain with the bowel prep. She has also had multiple bowel movements as well. She is admitted at this time for ongoing medical evaluation and treatment, particularly the hyponatremia. Once this is resolved, in a few days we will be able to repair her periumbilical incisional hernia. She has expressed understanding and agrees to above plan. Octavio Womack MD Electronically Signed By: OCTAVIO WOMACK MD 01/31/19 0753 PATIENT NAME: LUZ MARIA LOCKWOOD CONSULTATION DATE OF : 53 REPORT #: [id number] PHYSICIAN: OCTAVIO WOMACK MD PCP: ABIMAEL DEVLIN REPORT IS CONFIDENTIAL AND NOT TO BE RELEASED WITHOUT AUTHORIZATION [place] [id number] [place] [address] Signed ALB/MODL /[id number] cc: MD Patrick Soria MD Copies: ABIMAEL DEVLIN ANDREW L MD HARRI, JAMES MD ~ Electronically Signed By: OCTAVIO WOMACK MD 01/31/19 0753 PATIENT NAME: LUZ MARIA LOCKWOOD CONSULTATION DATE OF : 53 REPORT #: [id number] PHYSICIAN: OCTAVIO WOMACK MD PCP: ABIMAEL DEVLIN REPORT IS CONFIDENTIAL AND NOT TO BE RELEASED WITHOUT AUTHORIZATION
--- NOTE | 2019-01-31 08:46 | NUR ---
MORNING ASSESSMENT AND MEDICATION DUE. PT CALL LIGHT ON. PT REPORTS 6/10 CRAMPING PAIN IN ABDOMEN AND NAUSEA, REQUESTS MEDICATIONS. SEE MAR FOR MEDICATION GIVEN. BRISK BLOOD RETURN NOTED WITH IV, RECHECKED AFERT EACH 5ML OF PROMETHAZINE INFUSION, BLOOD RETURN NOTED THROUGHOUT INFUSION. ASSESSMENT DONE. BOWEL TONES HEARD. BASELINE NUMBNESS IN FEET/LEGS. PT DRINKING CLEAR LIQUIDS. NO ADDITIONAL REQUESTS OR COMPLAINTS AT THIS TIME. FALL RISK EDUCATION DONE WITH PT. PT VERBALIZES UNDERSTANDING. BED RAILS UP. CALL LIGHT WITHIN REACH.
--- NOTE | 2019-01-31 09:33 | NUR ---
THIS RN TO ROOM TO CHECK ON PT. PT REPROTS 3/10 PAIN IN ABDOMEN THAT "IS A LOT BETTER." PT DENIES NAUSEA AND STATES HER HEADACHE IS GONE. SBA UP TO RESTROOM. MEDICATION GIVEN. PT STATES SHE IS "READY FOR A NAP." SBA BACK TO BED. NO ADDITIONAL REQUESTS OR COMPLAINTS AT THIS TIME. CALL LIGHT WITHIN REACH.
--- NOTE | 2019-01-31 10:08 | NUR ---
PATIENT RESTING IN BED. VITAL SIGNS AND I&O DONE. CALL LIGHT WITHIN REACH. NO OTHER NEEDS AT THIS TIME
--- NOTE | 2019-01-31 10:45 | NUR ---
In to speak with Nancy who is well known to this RN. Pt states she has been planning hernia surgery since September, but NA has remained low and suurgery was cancelled. Came to the ER for pain and states she also had strep throat within the last 2 weeks, she is still taking Penicillin. Has a long history of asthma and bronchitis. She is hoping she increase NA and have surgery before dc. She is unsure if she will dc home and they return for her hernia surgery. If she has surgery, she will discharge home to her friend, yMrna home. She has a walker and a nebulizer.
--- NOTE | 2019-01-31 11:00 | NUR ---
PT REPORTS SHE HAS BEEN TAKING PENACILLIN FOR "STREP THROAT." AND THAT SHE HAS FOUR DAYS LEFT. MD NOTIFIED. ORDERS PLACED FOR REMAINING DOSES.
--- NOTE | 2019-01-31 11:30 | NUR ---
PATIENT SITTING UP ON THE EDGE OF THE BED. BEDBATH DONE. PATIENT USING A CLEAN GOWN. LINENS CHANGED. CALL LIGHT WITHIN REACH. NO OTHER NEEDS AT THIS TIME
--- NOTE | 2019-01-31 11:54 | NUR ---
NOON ASSESSMENT AND MEDICATION DUE. PT UP TO CHAIR. PT REPORTS 5/10 CRAMPING PAIN AND REQUESTS PAIN MEDICATION. ASSESSMENT DONE. BOWEL TONES HEARD. PT ALERT AND ORIENTED. PT DENIES NAUSEA. CLEAR LIQUID TRY ORDERED FOR LUNCH. NO ADDITIONAL REQUESTS OR COMPLAINTS AT THIS TIME. JELLO PROVIDED PER PT REQUEST. CALL LIGHT WITHIN REACH. NO ADDITIONAL REQUESTS OR COMPLAINTS AT THIS TIME.
--- NOTE | 2019-01-31 12:55 | NUR ---
MEDICATION ARRIVED FROM [facility]. GIVEN ORDERED (SEE MAR). PT REPORTS 4/10 PAIN AND REQUESTS ADDITIONAL PAIN MEDICAITON (SEE MAR FOR MEDICATION GIVEN). PT DENIES NAUSEA. PT EATING JELLO AND VISITING WITH FRIEND. NO ADDIITONAL REQUESTS OR COMPLAINTS. CALL LIGHT WITHIN REACH.
--- NOTE | 2019-01-31 13:55 | NUR ---
PATIENT RESTING IN BED. IN ROOM. PATIENT GOES TO USE BATHROOM. ONE PERSON ASSISTING. PATIENT BACKS TO BED. VITAL SIGNS AND I&O DONE. PATIENT COMPLAINS ABOUT PAIN. RN NOTIFIED. CALL LIGHT WITHIN REACH. NO OTHER NEEDS AT THIS TIME
--- NOTE | 2019-01-31 14:22 | NUR ---
THIS RN TO ROOM TO CHECK ON PT. PT REPORTS 7/10 CRAMPING PAIN AND WANTS ADDITIONAL PAIN MEDICATION. DR. ALEXANDRA CONSULTED. NO NEW PAIN MEDICAITONS AT THIS TIME. PT REPORTS NAUSEA STATING "IF I DONT' GET PAIN MEDICAITON i'M GOING TO THROW UP." PT AGREES TO PHENEGRAN. PIV ASSESSED, BRISK BLOOD RETURN NOTED. PHENEGRAN GIVEN. PT APPEARS DROWSY. SLURRED SPEACH NOTED AFTER PHENEGRAN ADMINISTRATION. PT HAS DIFFICULTY KEEPING EYES OPEN DURING CONVERSTATION. O2 SATURATION 96% ON ROOM AIR. PT RESTING WITH EYES CLOSED. FRIEND AT BEDSIDE. BED. RAILS UP. CALL LIGHT WITHIN REACH.
--- NOTE | 2019-01-31 16:17 | NUR ---
AFTERNOON ASSESSMENT DUE. PT RESTING IN BED. PT CONTINUES TO REPORT 7/10 PAIN IN ABDOMEN "ITS ROLLING INSIDE AND I HAVE TO BREATH LIKE DURING A ." PT MILDLY DIAPHORETIC. BLOOD SUGAR TAKEN = 124. ASSESSMENT DONE. BOWEL TONES HEARD ON LEFT ABDOMEN, HYPOACTIVE ON RIGHT. PT REPORTS FEELING ANXIOUS AND IS FREQENTLY CLENCHING ABDOMEN. PT ENCORUAGED TO RELAX ABDOMINAL MUSCLES. HEAT PACK PROVIDED. MD CALLED AND UPDATED. ORDERS FOR ATAVAN PLACED. PT VISTING WITH FRIEND. VSS. NO ADDITIONAL REQUESTS OR COMPLAINTS. CALL LIGHT WITHIN REACH.
--- NOTE | 2019-01-31 17:13 | NUR ---
PUMP ALARMING, FLUID INFUSION COMPLETE. NEW FLUIDS HUNG. ATAVAN GIVEN. PT NOW REPORTS 6/10 PAIN AND IS LAUGHING WHILE IN BED. PT REPORTS SHE IS ON A PAIN CONTRACT AND WORKS WITH DR. BREAUX. PT IS UNSURE IF DR. BREAUX IS AWARE THAT SHE IS HERE FOR HERNIA REPAIR SURGERY. PT REQUESTS ADDITIONAL PAIN MEDICATION FOR 6/10 ABDOMINAL PAIN. SEE MAR FOR MEDICATION GIVEN. PT EATING CLEAR LIQUID TRAY. PT UPDATED ON PLAN OF CARE. NO ADDITIONAL REQUESTS OR COMPLAINTS AT THIS TIME. CALL LIGHT WITHIN REACH.
--- NOTE | 2019-01-31 17:38 | EKG ---
[facility] [address] [place], [place] [address] Signed Normal sinus rhythm Normal ECG When compared with ECG of 30-JAN-2019 16:32, No significant change was found Confirmed by AGAPITO ALEXANDRA DO ([id number]) on 01/31/2019 5:37:50 PM Electronically Signed By: AGAPITO ALEXANDRA DO 01/31/19 1738 PATIENT NAME: LOCKWOODTIM ZEYNEP Electrocardiogram DATE OF : 53 PHYSICIAN: AGAPITO ALEXANDRA DO REPORT #: [id number] REPORT IS CONFIDENTIAL AND NOT TO BE RELEASED WITHOUT AUTHORIZATION
--- NOTE | 2019-01-31 17:38 | NUR ---
PT HERE FOR N/V, ABDOMINAL PAIN AND HERNIA REPAIR. LOW SODIUM LEVELS INCREASING, POSSIBLE HERNIA REPAIR SURGERY TOMORROW. PRN PAIN MEDICAITONS GIVEN FREQUENTLY THIS SHIFT. [place] ADDED. PRN NAUSE MEDICATIONS GIVEN X2. HOSPITALIST CONSULT. BLOOD SUGAR CHECKS WITH SLIDING SCALE INSULIN. VOIDING QUANTITY SUFFICIENT. PT USES CALL LIGHT APPROPRAITLY.
--- NOTE | 2019-01-31 17:49 | NUR ---
PATIENT RESTING IN BED. FRIEND IN ROOM. VITAL SIGNS AND I&O DONE. CALL LIGHT WITHIN REACH. NO OTHER NEEDS AT THIS TIME
--- NOTE | 2019-01-31 18:19 | NUR ---
THIS RN TO ROOM TO CHECK ON PT. PT REPORTS 4/10 PAIN AND STATES "I'M DOING PRETTY GOOD." PT REPORTS, "I WAS FALLING ASLEEP AND NOTICED A WHEEZE IN MY LUNGS." PT ENCOURAGED TO COUGH. I.S. PROVIDED, PT REACHES 2000ML. PT DENIES NAUSEA. NO ADDITIONAL REQUESTS OR COMPLAINTS AT THIS TIME. CALL LIGHT WITHIN REACH.
--- NOTE | 2019-01-31 19:03 | NUR ---
IN ROOM FOR REPORT, PT IS AWAKE IN BED. SHE DENIES NEEDS AT THIS TIME. CALL LIGHT IS CLOSE AND IV IS INFUSING FINE.
--- NOTE | 2019-01-31 19:15 | NUR ---
ROUNDED CHARGE. PATIENT IS RESTING IN BED WITH EYES CLOSED RR 17. CALL LIGHT IN REACH.
--- NOTE | 2019-01-31 22:10 | NUR ---
IN ROOM TO ASSESS PT AND ADMINISTER MEDICATIONS. SHE REPORT PAIN BUT IS DROWSY AT THIS TIME. WILL HOLD OFF ON ADMINISTERING PAIN MEDS. CALL LIGHT IS CLOSE AND SHE IS TALKING TO SOMEONE ON HER PHONE AT THIS TIME. IV IS INFUSING FINE.
--- NOTE | 2019-01-31 22:30 | NUR ---
PER PT REQUEST I CAME IN AND TURNED UP THE HEAT IN HER ROOM. HELPED HER TO TURN ON HER PHONE. BEDSIDE TABLE AND CALL LIGHT IN REACH.
--- NOTE | 2019-01-31 23:05 | NUR ---
IN ROOM TO ADMINISTER NORCO AND IMITREX. PT DENIES FURTHER NEEDS AT THIS TIME. CALL LIGHT IS CLOSE AND IV IS INFUSING FINE.
--- NOTE | 2019-01-31 23:24 | NUR ---
AVTAR Palencia requested for me to give pt broth. pt was given broth and it is hot. Pt said "okay i will let it cool". nothing further was needed at this time.
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
--- NOTE | 2019-02-01 01:58 | NUR ---
PT IS RESTING WITH EYES CLOSED, RR IS EVEN AND NONLABORED. IV IS INFUSING FINE AND CALL LIGHT IS CLOSE.
--- NOTE | 2019-02-01 03:40 | NUR ---
IN ROOM TO ADMINISTER MEDS AND ASSESS PT. ADMINISTERED DILAUDID. SHE DENIES FURTHER NEEDS AND CALL LIGHT IS CLOSE. IV IS INFUSING FINE.
--- NOTE | 2019-02-01 05:46 | NUR ---
PT IS AWAKE IN BED. SHE DENIES NEEDS AT THIS TIME. CALL LIGHT IS CLOSE.
--- NOTE | 2019-02-01 10:30 | NUR ---
PT EDUCATED AROUND PAIN MANAGEMENT: ENCOURAGED TO USE POSITIONING TO HELP WITH ABDOMINAL PAIN. ENCOURAGED TO USE NORCO FIRST PHARMACOLOGICAL INTERVENTION VS DILAUDID D/T CURRENT LEVEL OF SEDATION AND POTENTIAL SE OF HEADACHE WITH DILAUDED. PT ACCEPTED ECUATION AND CURRENT PAIN MANAGMENT PLAN.
--- NOTE | 2019-02-01 11:29 | NUR ---
PT IN BED, WAS EDUCATED ABOUT NEW ORDER OF FLUID RESTRICTION, SHE IS COOPERATIVE AND UNDERSTAND THE PLAN.
--- NOTE | 2019-02-01 11:35 | NUR ---
PT ALERT, ORIENTED AND SUPPORTED BY FAMILY. SHE IS SUFFERING AT THE MOMENT WITH A MIGRAINE AND IS WAITING FOR MEDS TO COME. OFFERED A PRAYER AND WILL CHECK BACK AGAIN.
--- NOTE | 2019-02-01 14:30 | NUR ---
SODIUM HAS COME UP TO 130.
--- NOTE | 2019-02-01 17:56 | NUR ---
PT C/O PRESSURE AND SHARP PAIN AT UMBILICAL HERNIA SITE, ENC PT TO AMBULATE IN HALLTO HELP RELIEVE PRESSURE, NO NAUSEA. ACTIVE BOWEL TONES.
--- NOTE | 2019-02-01 18:27 | NUR ---
PT IN MEDSURGE TO ADDRESS HYPONATREMIA, C/O ABDOMINAL PAIN SINCE COMPLETING BOWEL PREP FOR HERNIA REPAIR. DATA: NA+ LEVEL FROM 0550 123 MEGQ/l. O2 SATS RAN AT MID-HIGH 80'S. LUNG SOUNDS WERE DIMINISHED AT BASES WITH SLIGHT EXPIRATORY WHEEZE. PT REPORTED CURRENT DX OF ASTHMA WITH HOME NEBULIZER TX. GI SX OF ABDOMINAL PAIN RATED 7/10. HEADACHE RT BY PT, 8/10. PATIENT REQUESTED DILAUDID AND IMITREX. NUMBNESS REPORTED BY PATIENT ON FEET/TOES BILATERIALLY. LEG MUSCLE CRAMPS DENIED, YET PT REPOTED LEG CRAMPS NOC SHIFT. MILD ANXIETY REPORTED R/T UPCOMING SURGERY. PT PRESENTED LETHARGIC, SLEEPY WHEN NOT BEING VERBALLY ADDRESSED. ACTION: PT WAS PUT ON FLUID RESTRICTION W/SODIUM CL 1 GM TID BY PROVIDER. THIS RACE BOARD ATTENDANT PROVIDED EDUCATION AROUND REASONS FOR FLUID RESTRICTION. RESPIRATORY THERAPY WAS CALLED BY RN TO ADDRESS LOW 02, LUNG SOUNDS AND HOME RX NEBULIZER. PT WAS ENCOURAGED AND OBSERVED USING INSENTIVE SPIROMETER SEVERAL TIMES/HOUR. PT GIVEN EDUCATION AROUND USING NORCO FOR PAIN FIRST BEFORE DILAUDID D/T CURRENT LEVEL OF SEDATION AND POTENTIAL SE OF HEADACHE. PT ENCOURAGED TO USE POSITIONING, HEAT TO ADDRESS PAIN. PT AMBULATED TO HELP ADDRESS ABDOMINAL PAIN AFTER PO MEALS X 2. PLAN: CONTINUE TO ASSESS PAIN, ENCOURAGE NON-PHARMACHOLOGICAL METHODS FOR ADDRESSING PAIN, USE INSENTIVE SPIROMETER SEVERAL TIMES/HOUR, ENCOCOURAGE AMBULATION TO IMPROVE BOWEL SYMPTOMS. RESPONSE: PT WAS RESPONSIVE TO ALL TREATMENT PLAN CHANGES AND PATIENT EDUCATION. LAST SERUM SODIUM @1403 INCREASED TO 130. LUNG SOUNDS IMPROVED W/SLIGHLY DIMISHED SOUNDS AT BASES. 02 SATS REMAINED AT LOW 90'S/HIGH 80'S.
--- NOTE | 2019-02-01 19:24 | NUR ---
RECEIVED REPORT FROM SN AYO AND AVTAR WYATT. pt RESTING IN BED, GIVEN PRN PAIN MED BY AVTAR WYATT. TALKED ABOUT FLUID RESTRICTION. NO FURTHER REQUESTS AT THIS TIME. CALL LIGHT WITHIN REACH.
--- NOTE | 2019-02-01 20:34 | NUR ---
ASSESSMENT DONE. MEDICATIONS GIVEN (SEE MAR). FLUID RESTRICTION DISCUSSED, WATER PROVIDED. TALKED AT LENGTH ABOUT CURRENT ILLNESS. NO FURTHER REQUESTS AT THIS TIME. CALL LIGHT WITHIN REACH.
--- NOTE | 2019-02-01 22:06 | NUR ---
ROUNDED ON pt. DISCUSSED DELAYED SURGERY AND UPDATED ON PLAN OF CARE. PAIN 07/21. WATER RESTRICTION DISCUSSED WITH PATIENT, WATER PROVIDED. VITALS AND I&O RECOREDED. NO FURTHER QUESTIONS OR REQUESTS AT THIS TIME. CALL LIGHT WITHIN REACH.
--- NOTE | 2019-02-02 00:24 | NUR ---
ROUNDED ON pt. RESTING WITH EYES CLOSED, RESPIRATIONS REGULAR AND UNLABORED. CALL LIGHT WITHIN REACH.
--- NOTE | 2019-02-02 01:26 | NUR ---
pt CALLED FOR PAIN MEDICATION, GIVEN (SEE MAR). pt REPORTED TAKING PRN PAIN MEDS Q4H AT HOME. ASSESSMENT DONE. NO CHANGES. CALL LIGHT WITHIN REACH.
--- NOTE | 2019-02-02 04:10 | NUR ---
ROUNDED ON pt. SITTING IN BED, VISITOR AT BEDSIDE. pt REPORTED 4/10 PAIN, "IT'S BETTER" NO REQUESTS AT THIS TIME. CALL LIGHT WITHIN REACH.
--- NOTE | 2019-02-02 05:11 | NUR ---
pt DID NOT REST MUCH DURING SHIFT. ANXIOUS. VISITOR AT BEDSIDE. PRN PAIN MEDS X1. ACCU CHECK, BS WITHIN RANGE. SBA FWW. IV SL. REGULAR DIET WITH FLUID RESTRICTION. USES CALL LIGHT APPROPRIATELY.
--- NOTE | 2019-02-02 05:33 | NUR ---
CALL LIGHT ON. pt REQUESTED PRN PAIN MEDS FOR 09/20. VITALS AND I&O RECORDED. NO FURTHER REQUESTS AT THIS TIME. CALL LIGHT WITHIN REACH.
[2019-02-02] MEDS ORDERED: SODIUM CHLORIDE1 GM PO (07:57)
--- NOTE | 2019-02-02 09:15 | DS ---
[facility] [address] [place], [place] [address] Signed ADMISSION DATE: 01/31/2019 DISCHARGE DATE: 02/02/2019 FINAL DIAGNOSES: 1. Syndrome of inappropriate antidiuretic hormone. 2. Hyponatremia. 3. Chronic hypomagnesemia. 4. Periumbilical incisional hernia. PROCEDURES: None. HISTORY OF PRESENT ILLNESS: Luz Maria is a 63-year-old lady whom we have seen in the office for her symptomatic periumbilical incisional hernia. We are making efforts to repair that electively. Unfortunately, her sodium has been running low. She has been working with her primary care provider in that regard. She ended up purchasing her own sodium tablets over the counter and that was helping. When we had her come for the elective surgery, her sodium was once again quite low at 124. We went ahead and decided to admit her directly to the hospital with hopes that we could correct that and repair her hernia. HOSPITAL COURSE: Luz Maria was admitted as above and we consulted our Internal Medicine Service. Initially, we gave her normal saline IV and actually her sodium got worse. Consequently, we stopped her IV fluids and gave her a fluid restriction and gave her sodium tablets and of course, we discontinued the hydrochlorothiazide. That has helped out significantly and we have her sodium up to 130. Overall, she looks and feels much better. Unfortunately, I have no OR time or staff available to me today and I am out of town for the weekend. Overall, this is a non-emergent case, so we are going to schedule her for next week to have this repaired. We will keep her on her sodium tablets in that regard. She will finish up her penicillin for the tonsillitis as well. She has been instructed to stop the hydrochlorothiazide, but continue her other medications. DISCHARGE PLANS AND MEDICATIONS: Luz Maria will be discharged to home with her usual medications except we are going to discontinue the hydrochlorothiazide. She will continue sodium chloride 1 g p.o. t.i.d. We will give her two week supply with one refill. She is going to finish up the penicillin tablet she has at home for the tonsillitis and we will resume all her other chronic medications. She can take her usual diet, but should not engage in any heavy pushing, pulling, or lifting over about 20 pounds because of her hernia. I have already left a message at my office to reschedule her next week and we will contact her with Electronically Signed By: OCTAVIO WOMACK MD 02/02/19 0915 PATIENT NAME: LUZ MARIA LOCKWOOD DISCHARGE SUMMARY DATE OF : 53 REPORT #: [id number] PHYSICIAN: OCTAVIO WOMACK MD PCP: SANJEEV BREAUX REPORT IS CONFIDENTIAL AND NOT TO BE RELEASED WITHOUT AUTHORIZATION [facility] [address] [place] [id number] Signed that new date. She and her friend have expressed understanding and agreed above plan. MD LILIYA Joseph/ZHAOL /[id number] cc: MD Fernie Mao MD Bruce Carlson Andrew L Bower, MD Copies: IRIS SHEN MD, BRADLEY MD CARLSON, BRUCE BOWER, ANDREW L MD ~ Electronically Signed By: OCTAVIO WOMACK MD 02/02/19 0915 PATIENT NAME: LUZ MARIA LOCKWOOD DISCHARGE SUMMARY DATE OF : 53 REPORT #: [id number] PHYSICIAN: OCTAVIO WOMACK MD PCP: SANJEEV BREAUX REPORT IS CONFIDENTIAL AND NOT TO BE RELEASED WITHOUT AUTHORIZATION
--- NOTE | 2019-02-02 10:18 | NUR ---
PT EDUCATION: MEDICATIONS, FLU VACCINE, PSYCHOSOCIAL COPING STRATEGIES, FLUID RESTRICTIONS. PT RESPONED WELL TO VERBAL EDUCATION, INDICATED UNDERSTANDING OF EDUCTION VERBALLY.
--- NOTE | 2019-02-02 12:24 | NUR ---
STAFF JUST TAKING PT OUT FOLLOWING DC. SHE WAS EXCITED, THANKED ME FOR PREVIOUS VISIT. HAD QUICK, BRIEF BUT GOOD CONNECTION. EXTENDED A BLESSING, WILL FOLLOW NEEDED
== END 2019-02-02 10:15 | disposition home or self-care (01) | DRG 645 ==
LOC: ED 20:48 → MS 20:50
PROVIDERS: ADMIT Colon & Rectal Surgery
DX: E22.2 Syndrome of inappropriate secretion of antidiuretic hormone (principal); K43.2 Incisional hernia without obstruction or gangrene; G43.909 Migraine, unspecified, not intractable, without status migrainosus; E83.42 Hypomagnesemia; E66.9 Obesity, unspecified; I10 Essential (primary) hypertension; E11.9 Type 2 diabetes mellitus without complications; G89.29 Other chronic pain; M54.2 Cervicalgia; M79.7 Fibromyalgia; F25.9 Schizoaffective disorder, unspecified; J02.0 Streptococcal pharyngitis; Z23 Encounter for immunization; Z68.38 Body mass index [BMI] 38.0-38.9, adult; Z88.1 Allergy status to other antibiotic agents; Z88.5 Allergy status to narcotic agent; Z88.8 Allergy status to other drugs, medicaments and biological substances; Z79.84 Long term (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 of oral 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 drugs; Z79.891 Long term (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 of opiate analgesic; Z79.899 Other long term (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
CPT/HCPCS: 36415; 80048; 80053; 81001; 83690; 83735; 83935; 84100; 84295; 84300; 85025; 90688; 93005; 93010; 94640; 96361; 96374; 96375; 96376; 99284-25; G0378; J1170; J1650; J1815; J2060; J2405; J2550; J3010; J3475; J3480; J7030; J7121

== ENCOUNTER 2019-09-17 19:30 | Emergency (ER) | payer MEDICARE, OTHER ==
[~2019-09-17] VITALS: Ht 175.3 cm; Wt 118.5 kg
--- OUTSIDE RECORDS SUMMARY | ~2019-09-17 | XMS | Encounter Summary ---
Demographics + + + | Address | [address] | | | [place] [address] | + + + | Home Phone | | + + + | Preferred Language | Unknown | + + + | Marital Status | | + + + | Evangelical Affiliation | 1013 | + + + | Race | Unknown | + + + | Ethnic Group | Unknown | + + + Author + + + | Author | [facility] | | | and [place] | + + + | Organization | [facility] | | | and [place] [...] Team Providers + +------+ + | Care Desulphuring Operator Name | Role | Phone | + +------+ + | Abimael Devlin MD | PCP | | + +------+ + Reason for Visit + + + | Reason | Comments | + + + | Follow-up | right hip pain discuss options | + + + Encounter Details +--------+---------+ + + + | Date | Type | Department | Care Team | Description | +--------+---------+ + + + | 03/15/ | Office | [facility] | Andre Caballero | Primary | | 2019 | Visit | ORTHOPEDIC SURGERY | MD Rojelio [address] | osteoarthritis of | | | | [address] [place] | [place] | right hip (Primary | | | | [place] | [address] | Dx) | | | | [address] | | | | | | [phone] | | | +--------+---------+ + + + [...] + + + + | Weight | 117 kg (258 lb) | 03/15/2018 2:12 PM | | | | | PST | | + + + + + | Height | 172.7 cm (5' 8") | 03/15/2018 2:12 PM | | | | | PST | | + + + + + | Body Mass Index | 39.23 | 03/15/2018 2:12 PM | | | | | PST | | + + + + + documented in this encounter Progress Notes Andre Caballero MD - 03/15/2018 2:15 PM Gregg returns for follow-up of her pain ful right hip. At the time of her last visit in our office in October of last year she recei fredy a right hip trochanteric bursal injection that did not really help her pain at all. She then subsequently received an intra-articular right hip cortisone injection from Dr. Emmy mac that relieved 2/3 of her pain for a few days. Today, she states that her life is being significantly restricted because of right hip pain and she like to proceed with definitive treatment. Exam: Examination reveals that she continues to have difficulty arising from a seated posit ion. She has significant pain with rotation of the right hip which is most painful with int ernal rotation. Neurovascular function is intact the right foot. Imaging: X-rays are again reviewed with the patient which show mild to moderate osteoarthro sis of the right hip. Advice: We have discussed our findings with Luz Maria. She would like to proceed with right total hip joint arthroplasty. She has mild to moderate but definite right hip osteoarthrosi s. Unfortunately, she uses nicotine and is quite overweight. We therefore have mutually de cided that she should proceed with nicotine cessation. She also will work diligently on KRAFTWERK and will be seen back or office in 2 months for discussion and decision making.Elec tronically signed by Andre Caballero MD at 03/15/2018 3:02 PM PSTdocumented in this en counter Plan of Treatment Not on filedocumented as of this encounter Visit Diagnoses + + | Diagnosis | + + | Primary osteoarthritis of right hip - Primary Primary localized osteoarthrosis, | | pelvic region and thigh | + + documented in this encounter
--- OUTSIDE RECORDS SUMMARY | ~2019-09-17 | XMS | Encounter Summary ---
Demographics + + + | Address | [address] [facility] [address] | | | [place] [address] | + + + | Home Phone | | + + + | Preferred Language | Unknown | + + + | Marital Status | | + + + | Shinto Affiliation | 1013 | + + + | Race | Unknown | + + + | Ethnic Group | Unknown | + + + Author + + + | Author | [facility] | | | and [place] | + + + | Organization | [facility] | | [...] Team Providers + +------+ + | Care Scrap Crusher Name | Role | Phone | + [...] + + | 12/17/ | Emergency | [facility] | Rj Leung MD | Knee contusion, | | 2014 | | [facility] | [address] | right, initial | | | | CENTER [address] | [place], [place] | encounter (Primary | | | | [place], [place] | [address] | Dx); Knee sprain and | | | | [address] | | strain, right, | | | | [phone] | | initial encounter | +--------+ + [...] following attachments cannot be sent through Care Everywhere.STRAINS AND FABBY MCKINNEY (CROATIAN)documented in this encounter Medications at Time of [...] Oca MD - 12/17/2014 11:43 AM PDT [facility] Luz Maria Carmona Emergency Department Encounter Note [address], [place] [address] PCP:Wicho Starkey MD [phone] CHIEF COMPLAINT: Knee [...]
--- OUTSIDE RECORDS SUMMARY | ~2019-09-17 | XMS | Encounter Summary ---
Demographics + + + | Address | [address] [facility] [address] | | | [place] [address] | + + + | Home Phone | | + + + | Preferred Language | Unknown | + + + | Marital Status | | + + + | Sikhism Affiliation | 1013 | + + + | Race | Unknown | + + + | Ethnic Group | Unknown | + + + Author + + + | Author | [facility] | | | and [place] | + + + | Organization | [facility] | | | and [place] [...] + +------+ + | Care Director Of Oncology Name | Role | Phone | + [...] | | | [address] [facility] | | | | | | [address] [place] | | | | | | [address] | | | | | | [phone] | | | +--------+ + + + [...]
--- OUTSIDE RECORDS SUMMARY | ~2019-09-17 | XMS | Encounter Summary ---
Demographics + + + | Address | [address] [facility] [address] | | | [place] [address] | + + + | Home Phone | | + + + | Preferred Language | Unknown | + + + | Marital Status | | + + + | Restorationist Affiliation | 1013 | + + + | Race | Unknown | + + + | Ethnic Group | Unknown | + + + Author + + + | Author | [facility] | | | and [place] | + + + | Organization | [facility] | | | and [place] | [...] Team Providers + +------+ + | Care Flatwork Supervisor Name | Role | Phone | + [...] PHYSIATRY [address] | MD [address] | headache; | | | | [address] | [place] | Fibromyalgia | | | | [place] | [address] | | | | | [address] | | | | | | [phone] | | | +--------+ + + + [...]
--- OUTSIDE RECORDS SUMMARY | ~2019-09-17 | XMS | Encounter Summary ---
Demographics + + + | Address | [address] [facility] [address] | | | [place] [address] | + + + | Home Phone [...] + | Author | [facility] | | | and [place] | + + + | Organization | [facility] | | | and [place] | [...] Team Providers + +------+ + | Care Can Pusher Name | Role | Phone | + [...] | Physical | Diagnoses | Federico | Shyla Beasley | | | Services | Medicine and | Right hip | Andre Serrato | Physiatry | | | Required | Rehabilitatio | pain | [address] | | | | n | Trochanteric | [address] | [address] | | | | | bursitis of | [place], | [place], | | | | | right hip | [place] [address] | [place] [address] | | | | | Primary | Phone: | Phone: | | | | | osteoarthrit | [phone] | [phone] | | | | | is of right | Fax: | Fax: | | | | | hip | [phone] | [phone] | +--------+ + + + + + Encounter Details +--------+ + + + + | Date | Type | Department | Care Team | Description | +--------+ + + + + | 10/28/ | Orders Only | [facility] [place] | Adnre Caballero | Right hip pain | | 2017 | | ORTHOPEDIC SURGERY | MD Rojelio [address] | (Primary Dx); | | | | [address] [place] | [place] | Trochanteric | | | | [place], [place] | [address] | bursitis of right | | | | [address] | | hip; Primary | | | | [phone] | | osteoarthritis of | | | [...]
--- OUTSIDE RECORDS SUMMARY | ~2019-09-17 | XMS | Encounter Summary ---
Demographics + + + | Address | [address] [facility] [address] | | | [place] [address] | + + + | Home Phone | | + + + | Preferred Language | Unknown | + + + | Marital Status | | + + + | Congregational Affiliation | 1013 | + + + | Race | Unknown | + + + | Ethnic Group | Unknown | + + + Author + + + | Author | [facility] | | | and [place] | + + + | Organization | [facility] | | | and [place] [...] Team Providers + +------+ + | Care Assistant Center Manager Name | Role | Phone | + +------+ + | Teena Busch NP | PCP | | + +------+ + Reason for Visit + + + | Reason | Comments | + + + | Procedure | bgonb | + + + Encounter Details +--------+ + + + + | Date | Type | Department | Care Team | Description | +--------+ + + + + | 02/20/ | Procedure | [facility] [place] | Leonidas Huddleston, | Bilateral occipital | | 2015 | visit | PHYSIATRY [address] | MD [address] | neuralgia (Primary | | | | [address] | [place], [place] | Dx) | | | | [place], [place] | [address] | | | | | [address] | | | | | | [phone] | | | +--------+ + + + [...] + + + | Blood Pressure | 136/74 | 02/20/2015 3:38 PM | | | | | PST | | + + + + + | Pulse | 80 | 02/20/2015 3:38 PM | | | | | PST | | + + + + + | Temperature | - | - | | + + + + + | Respiratory Rate | 18 | 02/20/2015 3:38 PM | | | | | PST | | + + + + + | Oxygen Saturation | - | - | | + + + + + | Inhaled Oxygen | - | - | | | Concentration | | | | + + + + + | Weight | 95.3 kg (210 lb) | 02/20/2015 3:38 PM | | | | | PST | | + + + + + | Height | 172.7 cm (5' 8") | 02/20/2015 3:38 PM | | | | | PST | | + + + + + | Body Mass Index | 31.93 | 02/20/2015 3:38 PM | | | | | PST | | + + + + + documented in this encounter Patient Instructions Patient Instructions Leonidas Huddleston MD - 02/20/2015 4:16 PM PSTIf you develop any signs of infection (e.g. Fever, chills, redness, warmth, drainage) seek emergent medical attention and inform the clinic. Feel free to use ice, massage, and stretch after your injections to day. Please avoid direct heat, over the injections site, for 3 days following injection. Return to the clinic in 3 months to review management of symptoms. documented in this encounter Progress Notes Charmaine Dangelo RN - 02/20/2015 4:43 PM PSTUPON DISCHARGE PATIENT REPORTS 2/10 PAIN. Mariam ctronically signed by Charmaine Dangelo RN at 02/20/2015 5:58 PM PSTMarLeonidas madrid MD - 4:18 PM PSTReferring Physician: Leonidas Huddleston MD Diagnosis: Bilateral Greater Occipital Neuralgia Procedure: Bilateral Greater Occipital Nerve Blocks Procedure Detail: Informed consent was obtained. Risks, benefits, and alterative treatments were reviewed. Risks reviewed included but not limited to: bruising, bleeding, infection, damage to adjacen t structures, disability and . Risk of spinal block, need for hospitalization, and medhat tilation was reviewed. Risk of stroke was reviewed. Risk of skin discoloration was reviewe d. Once informed consent was obtained two separate syringes were prepared. Each syringe containing 4 ml of lidocaine 1% and 1 ml of Celestone 6 mg/ml. Each syringe c ontained a total medication volume of 5 ml. The left greater occipital nerve was identified anatomically, by palpation and reproduction of headache symptoms. The contents of the first syringe was injected into the proximity of the left greater occipital nerve using a 25 gauge 1-1/2 inch needle. During the injection she jerked forward and the needle was withdrawn. The needle was re-inserted and the injecti on was completed. The injection was tolerated without complication. The right greater occipital nerve was identified anatomically, by palpation and reproductio n of headache symptoms. The contents of the second syringe was injected into the proximity of the right greater occipital nerve using a 25 gauge 1-1/2 inch needle. The injection was tolerated without complication. The patient was observed in the clinic for a total of 30 minutes after the injections were completed. Their vital signs remained stable. Anesthesia of the bilateral greater occipita l nerves was obtained. The patient was discharged from the clinic with the instructions delfino t; should they have any alarming symptoms they should seek emergent medical care as well as inform me in my clinic. Prior to the procedure Luz Maria Carmona reported 7 out of 10 pain on a numerical pain s mel in the occipital region bilaterally. Following the procedure she reported that her will n had reduced to 2 out of 10 on a numerical pain scale. documented in this en counter Plan of Treatment Not on filedocumented as of this encounter Visit Diagnoses + + | Diagnosis | + + | Bilateral occipital neuralgia - Primary Other syndromes affecting cervical region | + + documented in this encounter Administered Medications + + + +-------+------+ + | Medication Order | MAR | Action | Dose | Rate | Site | | | Action | Date | | | | + + + +-------+------+ + | betamethasone (CELESTONE | Given by | 02/21/20 | 12 mg | | Other | | SOLUSPAN) injection 12 mg 12 mg, | Other | 15 4:41 | | | (Comment | | Intramuscular, ONCE, Naty | | PM PST | | | ) | | 02/20/15 at 1600, For 1 dose, | | | | | | | Shake well. Not for IV use., | | | | | | + + + +-------+------+ + +---+---+ | | | +---+---+ + + + +-------+---+---+ | lidocaine 1% injection 8 mL 8 | Given by | 02/21/20 | 8 mLs | | | | mL, Infiltration, ONCE, Naty | Other | 15 4:42 | | | | | 02/20/15 at 1600, For 1 dose | | PM PST | | | | + + + +-------+---+---+ +---+---+ | | | +---+---+ documented in this encounter
--- OUTSIDE RECORDS SUMMARY | ~2019-09-17 | XMS | Encounter Summary ---
Demographics + + + | Address | [address] [facility] [address] [facility] [address] | | | [place] [address] | + + + | Home Phone | | + + + | Preferred Language | Unknown | + + + | Marital Status | | + + + | Caodaism Affiliation | 1013 | + + + | Race | Unknown | + + + | Ethnic Group | Unknown | + + + Author + + + | Author | [facility] | | | and [place] | + + + | Organization | [facility] | | | and [place] [...] Team Providers + +------+ + | Care Cafeteria Assistant Name | Role | Phone | + [...] Right hip | Lisa, | [address] | | | | | pain | Paco Cox MD | Mario Martin, | | | | | Procedures | [address] | [place] | | | | | [place] Asp | [place] | [address] | | | | | and/or Inj | [place] | Phone: | | | | | Major Joint | [address] | [phone] | | | | | Right CHG | Phone: | Fax: | | | | | FLUOROSCOPIC | [phone] | [phone] | | | | | GUIDANCE | Fax: | | | | | | NEEDLE | [phone] | | | | | | PLACEMENT | | | | | | | ADD ON [place] | | | | | | | ARTHROCENTES | | | | | | | IS | | | | | | | ASPIR&/INJ | | | | | | | MAJOR | | | | | | | JT/STEPHONA W/O | | | | | | | US 12/20- | | | | | | | PEND | | | | | | | RESPONSE | | | | | | | FROM | | | | | | | CLINICAL | | | | | | | STAFF | | | +--------+--------+ + + + + Reason for Visit Service/Procedure (Routine) +--------+--------+ + + + + | Status | Reason | Specialty | Diagnoses / | Referred By | Referred To | | | | | Procedures | Contact | Contact | +--------+--------+ + + + + | Closed | | Radiology | Diagnoses | | [facility] X[facility] | | | | | Right hip | Lisa, | [address] | | | | | pain | Paco Cox MD | [place], | | | | | Bursitis of | [address] | [place] | | | | | right hip | [place] | [address] | | | | | Procedures | [place] | Phone: | | | | | [place] | [address] | [phone] | | | | | ARTHROCENTES | Phone: | Fax: | | | | | IS | [phone] | [phone] | | | | | ASPIR&/INJ | Fax: | | | | | | MAJOR | [phone] | | | | | | JT/BURSA W/O | | | | | | | [place] | | | | | | | TRIAMCINOLON | | | | | | | E ACET INJ | | | | | | | NOS, 10 MG | | | | | | | Right | | | | | | | intraarticul | | | | | | | ar hip | | | | | | | injection-Di | | | | | | | rect | | | | | | | referral | | | | | | | from | | | | | | | Federico | | | +--------+--------+ + + + + Encounter Details +--------+ + + + + | Date | Type | Department | Care Team | Description | +--------+ + + + + | 12/26/ | Hospital | [facility] | Romebrendajossie, | Right hip pain | | 2018 | Encounter | MED CTR XRAY [address] | CHRISTIANA Kuhn [address] | | | | | [address] [place] | [address] , [address] | | | | | [place] [address] | [place] [address] | | | | | [phone] | [phone] | | | | | | | | | | | | Hand Woven Carpet And Rug MenderLuis E | | | | | | [place] | | +--------+ + + + + [...] +---------+ + + | Blood Pressure | 118/88 | 12/26/2017 2:00 PM | | | | | PDT | | + +---------+ + + | Pulse | 99 | 12/26/2017 1:53 PM | | | | | PDT | | + +---------+ + + | Temperature | - | - | | + +---------+ + + | Respiratory Rate | - | - | | + +---------+ + + | Oxygen Saturation | - [...] +---------+ + + documented in this encounter Medications at Time [...] + +---------+ + + | ARIPiprazole | take 1 tablet by | | 0 | 10/05/19 | | | (ABILIFY) 30 MG | mouth once daily | | | 18 | | | tablet | | | | | | + + + +---------+ + + | Blood Glucose | TEST BLOOD GLUCOSE 1 | | 0 | 11/30/19 | | | Monitoring Suppl | TO 2 TIMES DAILY | | | 18 | | | (FREESTYLE LITE) | | | | | | | SERG | | | | | | + + + +---------+ + + | cyclobenzaprine | | | 0 | 10/05/19 | | | (FLEXERIL) 5 MG | | | | 18 | | | tablet | | | | | | + + + +---------+ + + | dicyclomine | | | 0 | 10/05/19 | | | (BENTYL) 10 mg | | | | 18 | | | capsule | | | [...] + + + +---------+ + + | famotidine | 20 mg Daily. | | 0 | 12/25/19 | | | (PEPCID) 20 mg | | | | 18 | | | tablet | | | | | | + + + +---------+ + + | FREESTYLE LANCETS | CHECK BLOOD SUGAR | | 0 | 11/30/19 | | | MISC | every morning and 1 | | | 18 | | | | TO 2 TIMES | | | | | | | THROUGHOUT THE DAY | | | | | + + + +---------+ + + | FREESTYLE LITE | CHECK BLOOD SUGAR | | 0 | 11/30/19 | | | strip | EVERY MORNING AND 1 | | | 18 | | | | TO 2 TIMES | | | | | | | THROUGHOUT THE DAY | | | | | + + + +---------+ + + | | take 1 tablet by | | 0 | 09/16/19 | | | hydroCHLOROthiazide | mouth once daily IN | | | 18 | | | 25 mg tablet | THE MORNING | | | | | + + + +---------+ + + | | take 1 tablet by | | 0 | 10/14/19 | | | HYDROcodone-acetamin | mouth four times a | | | 18 | | | ophen (NORCO) 10-325 | day if needed for | | | | | | mg per tablet | pain | | | | | + + [...] + + + +---------+ + + | Magnesium 400 MG | Take by mouth. | | 0 | | | | CAPS | | | | | | + [...] + +---------+ + + | DULoxetine | | | 0 | 10/17/19 | | | (MICHELE) [address] | | | | 18 | 9 | | capsule | | | | | | + + + +---------+ + + | LORazepam (ATIVAN) | Take 0.5 mg by mouth | | 0 | 06/28/19 | | | 0.5 mg tablet | Daily. | | | 16 | 9 | + + + +---------+ + + | LORazepam (ATIVAN) | take 1/2 to 1 tablet | | 0 | 09/16/19 | | | 1 mg tablet | by mouth three | | | 18 | 9 | | | times a day if | | | | | | | needed for SEVER | | | | | | | PANIC | | | | | + + + +---------+ + + | Multiple | Take 1 tablet by | | 0 | | | | Vitamins-Minerals | mouth Daily. | | | | 9 | | (CENTRUM SILVER PO) | | | | | | + + + +---------+ + + | prazosin | | | 0 | 10/05/19 | | | (MINIPRESS) 1 mg | | | | 18 | 9 | | capsule | | | | | | + + + +---------+ + + | verapamil (CALAN | take 1 tablet by | | 0 | 10/14/19 | | | SR) 180 mg SR tablet | mouth once daily | | | 18 | 9 | + + + +---------+ + + documented as of this encounter Plan of Treatment Not on filedocumented as of this encounter Procedures + +--------+ + + + | Procedure Name | Priori | Date/Time | Associated Diagnosis | Comments | | | ty | | | | + +--------+ + + + | FL ASPIRATION | Routin | 12/26/2017 | Right hip pain | Results for this | | INJECTION MAJOR | e | 1:52 PM | | procedure are in the | | JOINT RIGHT | | PDT | | results section. | + +--------+ + + + documented in this encounter Results FL Asp and/or Inj Major Joint Right (12/26/2017 1:52 PM PDT) + + | Specimen | + + | | + + + + + | Narrative | Performed At | + + + | 12/26/2017 | [facility] | | RIGHT INTRAARTICULAR HIP INJECTION CLINICAL HISTORY: ICD-10 CODE | | | M25.55, HIP PAIN. Luz Maria Carmona presents to the fluoroscopy | | | [...] | + + | Right hip pain Pain in joint, pelvic region and thigh | + + documented in this encounter Administered Medications + +--------+ +------+------+------+ | Medication Order | MAR | Action | Dose | Rate | Site | | | Action | Date | | | | + +--------+ +------+------+------+ | betamethasone (CELESTONE | Given | 12/27/19 | 9 mg | | | | SOLUSPAN) injection 9 mg 9 mg, | | 18 2:05 | | | | | Intra-articular, ONCE, Mon | | PM PDT | | | | | 12/26/17 at 1400, For 1 dose, | | | | | | | Shake well. Not for IV use., | | | | | | + +--------+ +------+------+------+ +---+---+ | | | +---+---+ + +-------+ +-------+---+---+ | iohexol (OMNIPAQUE 300) 300 | Given | 12/27/19 | 4 mLs | | | | mg/mL injection 4 mL 4 mL, | | 18 2:00 | | | | | Other, ONCE, 12/26/17 at | | PM PDT | | | | | 1400, For 1 dose | | | | | | + +-------+ +-------+---+---+ +---+---+ | | | +---+---+ + +-------+ +-------+---+---+ | lidocaine buffered 1.3% | Given | 12/27/19 | 3 mLs | | | | injection 3 mL 3 mL, Other, | | 18 1:55 | | | | | ONCE, Tue12/26/17 at 1400, For 1 | | PM PDT | | | | | dose | | | | | | + +-------+ +-------+---+---+ +---+---+ | | | +---+---+ + +-------+ +---------+---+---+ | ropivacaine (NAROPIN) 5 mg/mL | Given | 12/27/19 | 3.5 mLs | | | | (0.5%) injection 3.5 mL 3.5 mL, | | 18 2:05 | | | | | Other, ONCE, Tue12/26/17 at | | PM PDT | | | | | 1400, For 1 dose | | | | | | + +-------+ +---------+---+---+ +---+---+ | | | +---+---+ documented in this encounter"
--- OUTSIDE RECORDS SUMMARY | ~2019-09-17 | XMS | Encounter Summary ---
Demographics + + + | Address | [address] [facility] [address] | | | [place] [address] | + + + | Home Phone | | + + + | Preferred Language | Unknown | + + + | Marital Status | | + + + | Mandaen Affiliation | 1013 | + + + | Race | Unknown | + + + | Ethnic Group | Unknown | + + + Author + + + | Author | [facility] | | | and [place] | + + + | Organization | [facility] | | | and [...] Team Providers + +------+ + | Care Sales Center Associate Name | Role | Phone | + +------+ + | Wicho Starkey MD | PCP | | + +------+ + Reason for Visit +--------+--------+ + | Reason | Onset | Comments | | | Date | | +--------+--------+ + | Other | 12/06/ | | | | 2014 | | +--------+--------+ + Encounter Details +--------+ + + + + | Date | Type | Department | Care Team | Description | +--------+ + + + + | 12/06/ | Telephone | [facility] [place] | Leonidas Huddleston, | Other | | 2014 | | PHYSIATRY [address] | MD [address] | | | | | [address] | [place], [place] | | | | | [place], [place] | [address] | | | | | [address] | | | | | | [phone] | | | +--------+ + + + [...] Telephone Encounter - Charmaine Dangelo RN - 12/09/2014 11:14 AM PDTPatient called and noti fied of results. Patient advised to speak to PCP about "pain meds" for her acute knee pain. elephone Encounter - Charmaine Dangelo RN - 12/06/2014 11:07 AM PDTFormatting of this note might be different fr om the original. Charmaine, Please let Luz Maria Carmona know that I have reviewed her knee x-rays. There are no em ergent findings on her x-rays. The x-rays demonstrate arthritis in both knees. Thank you, Leonidas Huddleston MD (.) elephone Encounter - Karin Crespo - 12/06/2014 10:01 AM PDTPatient called for X-Ray follow up and to request "pain meds" for her knee pain. documented in this encounter Plan of Treatment Not on filedocumented as of this encounter Visit Diagnoses Not on filedocumented in this encounter
--- OUTSIDE RECORDS SUMMARY | ~2019-09-17 | XMS | Encounter Summary ---
Demographics + + + | Address | [address] [facility] [address] | | | [place] [address] | + + + | Home Phone | | + + + | Preferred Language | Unknown | + + + | Marital Status | | + + + | Synagogue Affiliation | 1013 | + + + | Race | Unknown | + + + | Ethnic Group | Unknown | + + + Author + + + | Author | [facility] | | | and [place] | + + + | Organization | [facility] | | | and [place] [...] Team Providers + +------+ + | Care Tennis Director Name | Role | Phone | + [...] Rehabilitatio | Fibromyalgia | [address] | | | n | [address] | [place], | | | | | Cervicalgia | [place], | [place] [address] | | | | | Cervical | [place] [address] | Phone: | | | | | dystonia | Phone: | [phone] | | | | | History of | [phone] | Fax: | | | | | cervical | Fax: | [phone] | | | | | spinal | [phone] | | | | | | surgery [...] | | | Rehabilitatio | neuralgia | FIRST AID TRAINER [address] | | | | n | neck pain | [address] | [place], | | | | | follow up | [address] | [place] [address] | | | | | | [place], | Phone: | | | | | | [place] [address] | [phone] | | | | | | Phone: | Fax: | | | | | | [phone] | [phone] | | | | | | Fax: | | | | | | | [phone] | | +--------+--------+ + + + + Encounter Details +--------+---------+ + + + | Date | Type | Department | Care Team | Description | +--------+---------+ + + + | 07/31/ | [facility] | [facility] Leonidas Mohr, | Chronic daily | | 2015 | Visit | PHYSIATRY [address] | MD [address] | headache (Primary | | | | [address] | [place] | Dx); Migraine | | | | [place] | [address] | without aura and | | | | [address] | | without status | | | | [phone] | | migrainosus, not | | | [...] physical therapy within one week, please contact [facility]. Once you have completed physical therapy please continue the home exercise progr am as outline by physical therapy, indefinitely. Return to the clinic in 3 months. documented in this encounter Progress Notes Leonidas Mohr MD - 08/01/2015 10:48 AM PDT [facility] PHYSIATRY [address] [facility] [address] OFFICE NOTE LEONIDAS MOHR JR, MD Patient: LUZ MARIA LOCKWOOD Admitting: MR #: [id number] LOC: PT TYPE: Adm Date: 08/01/2015 : [...] that she also ran out of her [employer] a month ago. Since running out of her [employer], her headaches have been worse. She has [...] Transcribed on 08/01/2015 11:20:21 by viktoria job# [id number] Confirmation #: [id number] cc: JANELLE BUSCH NP [facility], Leonidas Irving MD - 08/01/2015 10:40 AM PDTThis office note has been dictated. Job ID# [id number] signed by Leonidas Mohr MD at 08/01/2015 [...]
--- OUTSIDE RECORDS SUMMARY | ~2019-09-17 | XMS | Encounter Summary ---
Demographics + + + | Address | [address] [facility] [address] | | | [place] [address] | + + + | Home Phone [...] | Author | [facility] | | | and [place] | + + + | Organization | [facility] | | | and [place] [...] Team Providers + +------+ + | Care Senior Housekeeper Name | Role | Phone | + [...] + + | 06/07/ | Office | [facility] | Andre Caballero | Chronic pain of both | | 2019 | Visit | ORTHOPEDIC SURGERY | MD [address] | knees (Primary Dx); | | | | [address] | [place] | Primary | | | | [place] | [address] | osteoarthritis of | | | | [address] | | both knees | | | | [phone] | | | +--------+---------+ + + + [...] + + | Performing | Address | City/State/[facility] | Phone Number | | Organization [...] | | | |Dictated and Signed by: Mhaesh Daley MD | | Electronically signed: 06/07/2018 [...]
--- OUTSIDE RECORDS SUMMARY | ~2019-09-17 | XMS | Encounter Summary ---
Demographics + + + | Address | [address] [facility] [address] | | | [place] [address] | + + + | Home Phone | | + + + | Preferred Language | Unknown | + + + | Marital Status | | + + + | Hinduism Affiliation | 1013 | + + + | Race | Unknown | + + + | Ethnic Group | Unknown | + + + Author + + + | Author | [facility] | | | and [place] | + + + | Organization | [facility] | | | and [place] [...] Team Providers + +------+ + | Care Coal Or Ore Controller Name | Role | Phone | + [...] Right hip | Lisa, | [address] | | | | | pain | Paco Cox MD | Mario Martin, | | | | | Procedures | [address] | [place] | | | | | [place] Asp | [place] | [address] | | | | | and/or Inj | [place] | Phone: | | | | | Major Joint | [address] | [phone] | | | | | Right CHG | Phone: | Fax: | | | | | FLUOROSCOPIC | [phone] | [phone] | | | | | GUIDANCE | Fax: | | | | | | NEEDLE | [phone] | | | | | | PLACEMENT | | | | | | | ADD ON ME | | | | | | | [...] Orders Only | [facility] [place] | LisaPaco | Right hip pain | | 2018 | | PHYSIATRY [address] | T, [address] | (Primary Dx) | | | | [address] | [place], [place] | | | | | [place], [place] | [address] | | | | | [address] | | | | | | [phone] | | | +--------+ + + + [...] + + | Performing | Address | City/State/[facility] | Phone Number | | Organization | [...]
--- OUTSIDE RECORDS SUMMARY | ~2019-09-17 | XMS | Encounter Summary ---
Demographics + + + | Address | [address] [facility] [address] | | | [place] [address] | + + + | Home Phone | | + + + | Preferred Language | Unknown | + + + | Marital Status | | + + + | Christian Affiliation | 1013 | + + + | Race | Unknown | + + + | Ethnic Group | Unknown | + + + Author + + + | Author | [facility] | | | and [place] | + + + | Organization | [facility] | | | and [...] Team Providers + +------+ + | Care Fire Extinguisher Tester Name | Role | Phone | + +------+ + | Epi Starkey MD | PCP | | + +------+ + Reason for Visit + + + | Reason | Comments | + + + | New Patient | vertigo,dizzy,nause,right ear pain,has been going for 2 years | + + + Evaluate & Treat (Routine) +--------+ + + + + + | Status | Reason | Specialty | Diagnoses / | Referred By | Referred To | | | | | Procedures | Contact | Contact | +--------+ + + + + + | Closed | Specialty | Otolaryngolog | Diagnoses | Mohr, | [facility] | | | Services | y | Benign | Leonidas Irving MD | Otolaryngolog | | | Required | | paroxysmal | [address] | y [address] | | | | | positional | [address] | [address] | | | | | vertigo | [place], | [address] [place] | | | | | Procedures | [place] [address] | [place], [place] | | | | | 10/25 [address] | Phone: | [address] | | | | | [place] | [phone] | Phone: | | | | | | Fax: | [phone] | | | | | | [phone] | Fax: | | | | | | | [phone] | +--------+ + + + + + Encounter Details +--------+---------+ + + + | Date | Type | Department | Care Team | Description | +--------+---------+ + + + | 11/27/ | Office | [facility] | Leonidas Mohr, | BPPV (benign | | 2014 | Visit | OTOLARYNGOLOGY [address] | [address] | paroxysmal | | | | [address] | [place] | positional vertigo), | | | | [place] | [address] | bilateral (Primary | | | | [address] | | Dx); Sensorineural | | | | [phone] | Leonidas Mohr MD | hearing loss, | | | | | [address] | bilateral | | | | | [address] [place], | | | | | | [place] [address] | | | | | | [phone] | | | | | | | [...] + + + + | Pulse | 64 | 11/27/2014 2:00 PM | | | | | PDT | | + + + + + | Temperature | - | - | | + + + + + | Respiratory Rate | 16 | 11/27/2014 2:00 PM | | | | | PDT | | + + + + + | Oxygen Saturation | 90% | 11/27/2014 2:00 PM | | | | | PDT | | + + + + + | Inhaled Oxygen | - | - | | | Concentration | | | | + + + + + | Weight | 98.9 kg (218 lb) | 11/27/2014 2:00 PM | | | | | PDT | | + + + + + | Height | 174 cm (5' 8.5") | 11/27/2014 2:00 PM | | | | | PDT | | + + + + + | Body Mass Index | 32.66 | 11/27/2014 2:00 PM | | | | | PDT | | + + + + + documented in this encounter Progress Notes Leonidas Mohr MD - 11/27/2014 2:23 PM PDT [facility] OTOLARYNGOLOGY [address] [place] [address] OFFICE NOTE LEONIDAS MOHR MD Patient: LUZ MARIA LOCKWOOD Admitting: MR #: [id number] LOC: PT TYPE: Adm Date: 11/27/2014 : 1955 NEW PATIENT VISIT DATE OF VISIT: 11/27/2014. The patient has had problems with some dizzy spells now for probably at least 2 years. Juana campos notes it when she first sits up out of bed. She will often notice it when she looks up o r if she looks down and then brings her head up quickly, she will have a spinning sensation for 10-15 seconds or less, after that she might be a little bit nauseated sometimes she f eels a little bit off balance for a while. This has been occurring on the occasional basis again for at least 2 years. She comes in to have this evaluated. She is not having any o ther ENT complaints. Occasionally, she gets some sharp pain in her head. The patient has noted that if there is background noise or 2 or 3 people are talking that sometimes she has problems hearing what they are saying, if they walk away from her or they are in the next room, she cannot understand or make out what is being said a lot of the time. She has to t urn up the television so she can hear a little better, not having any other complaints at the current time. PHYSICAL EXAMINATION: GENERAL: Shows an alert 59-year-old female patient. She is communicating well. Her voic e quality is good. HEENT: Skin of the face, nose and ears all appear to be healthy. Parotid, submandibular g land areas are smooth. Facial movement is symmetrical, without any weakness noted. Ear ca nals are open, they are clean. The drums are clear. No middle ear fluid or disease noted. Nasal passages: No obstruction, no mass or lesion seen on either side. Floor of the mout h, buccal mucosa, hard palate, teeth, lips, gums are healthy. No mass seen in the orophary nx and posterior pharyngeal wall is smooth. Tongue and soft palate are smooth and move sym metrically. NECK: There are no masses or lymphadenopathy. Thyroid gland is smooth. Trach ea is midline. NEUROLOGIC: The patient ambulating well without any evidence of an abnormal gait. Tympanograms were normal A-shaped tympanograms. The patient's speech law office receptionist threshold is 25 dB bilaterally. Speech discrimination scores were 92 percent in the right ear and 96 in the left ear. At the 4000 frequency, she drops down to 40 dB in both ears. IMPRESSION: 1. Benign paroxysmal positional vertigo. 2. High frequency sensorineural hearing loss. PLAN: The patient is scheduled for an Cindy maneuver. She has been advised that her hear ing is declining and a copy of the audiogram was given to the patient so she could remind f riends and family that they need to talk directly towards her so that she can hear well. S he would need a followup hearing exam typically in the next 1-2 years. LEONIDAS MOHR MD Dictated by LEONIDAS MOHR MD 11/27/2014 14:23:51 Transcribed on 11/27/2014 14:43:01 by tamy job# [id number] Confirmation #: [id number] cc: EPI STARKEY MD [facility], Leonidas Campos MD - 11/27/2014 2:19 PM PDTSee dictation #[id number] signed by Leonidas Mohr MD at 11/27/2014 2:25 PM PDTdocumented in this encounter Plan of Treatment + + +--------+ + + | Name | Type | Priori | Associated Diagnoses | Order Schedule | | | | ty | | | + + +--------+ + + | * [facility] [place] | Outpatient | Routin | Vertigo | Ordered: 10/16/2014 | | Otolaryngology - AMB | Referral | e | | | | Referral | | | | | + + +--------+ + + documented as of this encounter Visit Diagnoses + + | Diagnosis | + + | BPPV (benign paroxysmal positional vertigo), bilateral - Primary | + + | Sensorineural hearing loss, bilateral | + + documented in this encounter
--- OUTSIDE RECORDS SUMMARY | ~2019-09-17 | XMS | Encounter Summary ---
Demographics + + + | Address | [address] [facility] [address] | | | [place] [address] | + + + | Home Phone | | + + + | Preferred Language | Unknown | + + + | Marital Status | | + + + | Pentecostalism Affiliation | 1013 | + + + | Race | Unknown | + + + | Ethnic Group | Unknown | + + + Author + + + | Author | [facility] | | | and [place] | + + + | Organization | [facility] | | | and [place] [...] Team Providers + +------+ + | Care Laser Beam Trim Operator Name | Role | Phone | [...] + | 10/15/ | Telephone | [facility] | Patrick England MD | Other (dizzy and | | 2016 | | GASTROENTEROLOGY | [address] [place] | side pain) | | | | [address] [place] | [address] [place], [place] | | | | | [address] [place], [place] | [address] | | | | | [address] | | | | | | [phone] | | | +--------+ + + + [...]
--- OUTSIDE RECORDS SUMMARY | ~2019-09-17 | XMS | Encounter Summary ---
Demographics + + + | Address | [address] [facility] [address] | | | [place] [address] | + + + | Home Phone [...] + + | Author | [facility] | | | and [place] | + + + | Organization | [facility] | | | and [...] Team Providers + +------+ + | Care Medicare Specialist Name | Role | Phone | + +------+ + PCP | Unavailable | + +------+ + Encounter Details +--------+ + + + + | Date | Type | Department | Care Team | Description | +--------+ + + + + | 11/24/ | Abstract | [place] [facility] | DATA MIGRATION [facility] | | | 2011 | | Conversion Location | SR | | | | | [address] | | | | | | [place], [place] | | | | | | [address] | | | | | | [phone] | | | +--------+ + + + [...]
--- OUTSIDE RECORDS SUMMARY | ~2019-09-17 | XMS | Encounter Summary ---
Demographics + + + | Address | [address] [facility] [address] | | | [place] [address] | + + + | Home Phone [...] | Author | [facility] | | | and [place] | + + + | Organization | [facility] | | | [...] Team Providers + +------+ + | Care Flow Manager Name | Role | Phone | + +------+ + | Teena Busch STORAGE BATTERY INSPECTOR AND TESTER | PCP | | + +------+ + [...] | occipital | [address] | | | | n | neuralgia | [address] | [place], | | | | | Procedures | [place], | [place] [address] | | | | | [place] INJECT | [place] [address] | Phone: | | | | | NERV | Phone: | [phone] | | | | | GREGORIO MILLER | [phone] | Fax: | | | | | OCC[place]TL [place] | Fax: | [phone] | | | | | BETAMETHASON | [phone] | | | | | | E ACET&SOD | | | | | | | PHOSP, 3 MG | | | | | | | DOS | | | | | | | 02/20/15 | | | | | | | PEND INS | | | | | | | 01/30 | | | +--------+ + + + + + Reason for Visit + + + | Reason | Comments | + + + | Knee Pain | | + + + | Follow-up | | + + + Evaluate & [...] | | | | Medicine and | Other tear | Wicho | Alicia Irving MD [address] | | | | Rehabilitatio | of medial | MD Erasmo | [address] | | | | n | meniscus, | [address] | [place], | | | | | current | [place] | [place] [address] | | | | | injury, | [place], [place] | Phone: | | | | | right knee, | [address] | [phone] | | | | | subsequent | Phone: | Fax: | | | | | encounter | [phone] | [phone] | | | | | review | Fax: | | | | | | response to | [phone] | | | | | | lyrica, and | | | | | | | MRI (12/10)* | | | | | | | Procedures | | | | | | | DOS 01/15/15 | | | +--------+--------+ + + + + Encounter Details +--------+---------+ + + + | Date | Type | Department | Care Team | Description | +--------+---------+ + + + | 01/15/ | Office | [facility] | Leonidas Mohr, | Chronic daily | | 2015 | Visit | PHYSIATRY [address] | [address] | headache (Primary | | | | [address] | [place] | Dx); Bilateral | | | | [place] | [address] | occipital neuralgia; | | | | [address] | | Migraine without | | | | [phone] | | aura and without | | | | | | status migrainosus, | | | | | | not intractable; | | | | | | Right knee pain; | | | | | | Acute meniscal tear | | | | | | of right knee, | | | | | | subsequent encounter | +--------+---------+ + + + Social History [...] + + + | Blood Pressure | 115/64 | 01/15/2015 12:05 PM | | | | | PST | | + + + + + | Pulse | 68 | 01/15/2015 12:05 PM | | | | | PST | | + + + + + | Temperature | - | - | | + + + + + | Respiratory Rate | 18 | 01/15/2015 12:05 PM | | | | | PST | | + + + + + | Oxygen Saturation | - | - | | + + + + + | Inhaled Oxygen | - | - | | | Concentration | | | | + + + + + | Weight | 90.7 kg (200 lb) | 01/15/2015 12:05 PM | | | | | PST | | + + + + + | Height | 172.7 cm (5' 8") | 01/15/2015 12:05 PM | | | | | PST | | + + + + + | Body Mass Index | 30.41 | 01/15/2015 12:05 PM | | | | | PST | | + + + + + documented in this encounter Patient Instructions Patient Instructions Leonidas Mohr MD - 01/15/2015 12:25 PM PSTIf knee pain returns in t he future, you may consider repeating steroid injection. If steroid injection doesn't work you may see the orthopedic surgeon to consider knee arthroscopy. Please take the prescribed medication Lyrica. Taper up the dose of the medication as direct ed. Stop tapering up the medication at the lowest effective dose. If you have side effects to the medication, reduce the dose of the medication to the last dose that you were able to tolerate without side effects. Return to the clinic for greater occipital nerve blocks. documented in this encounter Progress Notes Leonidas Mohr MD - 01/15/2015 4:06 PM PST [facility] [address] [facility] [id number] OFFICE NOTE LEONIDAS MOHR JR, MD Patient: LUZ MARIA LOCKWOOD Admitting: MR #: [id number] LOC: PT TYPE: Adm Date: 01/15/2015 : 1955 PHYSICAL MEDICINE REHABILITATION PROGRESS NOTE DATE OF : 1955 PATIENT IDENTIFICATION: A 59-year-old female with history of right knee pain. Also, hist ory of headaches and fibromyalgia. HISTORY OF PRESENT ILLNESS: The patient reports that she continues to have headaches. Sh e indicates that headaches; however, are reduced in frequency, may also be shorter in durat ion, she is uncertain if intensity is reduced. She believes that headache intensity may be slightly improved. She is still having headaches approximately 2 days per week. This is down from previous 4+ days per week. She indicates that headaches seem to last 1-2 hours, usually she reports the headache using sumatriptan. She indicates that usually within 30 minutes of taking sumatriptan her headache goes away. She indicates that Lyrica also seem s to have reduced her headache symptoms. She indicates that since being on Lyrica her head ache frequency is reduced. Headaches seem to start in the occipital region. Headaches are associated with neck stiffness and tightness. Headaches are increased when neck is feelin g tight and stiff. She reports that headaches that start at the back of the occipital reg ion radiate up around the sides of the head and the top of the head. She reports that head aches are strongest over the frontal and temporal region of the head. She describes the he adaches as intermittent. She reports the headaches as a pressure feeling. She indicates there is no aura with the headaches. She reports light sensitivity and sound sensitivity w ith her headaches. She reports that she frequently has nausea with her headaches. She rep orts that on very rare occasion, she has vomiting. When she was seen previously it was re commended that she may benefit from greater occipital nerve blocks. She has requested [facility] to receive this procedure. She indicates that recently she was approved for [facility]. She would like to move forward with greater occipital nerve blocks at this time to see if it may offer her further reduction in headache symptoms. In regards to fibromyalgia she reports that Lyrica has been very helpful. She indicates t hat she has some all over aches and pains, fatigue. She indicates that pain is increased w ith activity. She reports the pain is reduced with Lyrica. She is liking the effects of Lyrica. She reports that her overall pain is reduced. It was recommended that she taper u p Lyrica in the past to Lyrica 100 mg 3 times per day. She reports that her insurance decl ined the increased dose. At current dose, she denies any side effects to Lyrica. Current overall pain is an 8/10 on a numerical pain scale. She reports right knee pain. When she was last seen, she had right knee swelling, inflamm ation. I suspected that she may have underlying injury such as meniscal injury or ligament ous tear. She was sent for right knee MRI. She completed right knee MRI 12/10/2014. Subs equently, she has been seen by orthopedic surgeon. She saw Dr. [place]. She tried right k nee intra-articular steroid injection. She reports that her right knee pain is dramaticall y improved since receiving the injection with Dr. [place]. She denies significant knee pain at this time. Her knee MRI results were reviewed with her. They were reviewed personally by me. Right knee MRI demonstrates transverse tear of posterior horn and medial meniscus . We discussed that steroid injection may help reduce inflammation and pain. We discussed that she may have recurrence of pain in the future. We discussed that if steroid injectio n fails to offer benefit some patients may elect to go on to have arthroscopic surgery und er the guidance of a surgeon. We discussed that arthroscopy may predispose for a later dev elopment of degenerative joint disease. ALLERGIES: ALPRAZOLAM, CODEINE, PRAZOSIN, QUETIAPINE. CURRENT MEDICATIONS: Abilify 10 mg daily. Calcium carbonate with vitamin D 600-200 two times daily. Valium 2 mg every 6 hours as nee ded. Cymbalta 60 mg once daily. Lamictal 200 mg 2 tablets in the evening and 1 in the morning. Glucophage 1000 mg 2 times daily. Naproxen 375 mg twice daily as needed. Prilosec 40 mg daily. Percocet 5/325 mg 1-2 tablets every 6 hours as needed. Lyrica 75 mg 3 times per day. Verapamil 180 mg sustained release once daily. REVIEW OF SYSTEMS: The patient denies nausea, vomiting, diarrhea, constipation, fever, ch ills, shortness of breath, or chest pain. She denies weight gain. She denies dizziness. She denies sedation. She denies limb swelling. She had recent right ankle/foot fracture. She is wearing walking splint/boot. She has headaches as noted above, right knee pain is currently improved after recent steroid injection. All other review of systems negative. PHYSICAL EXAMINATION: VITAL SIGNS: Heart rate 68, respiratory rate 18, blood pressure 115/64, weight is 200 andrew nds, height 5 feet 8 inches. GENERAL: No acute distress, alert and oriented to person, place, time and situation. HEENT: Extraocular muscles intact. Sclerae are clear. NECK: Mild limitation in range of motion. Increased tone over cervical paraspinal muscle s, especially over splenius capitis muscles bilaterally. There is retrocollis and findings consistent with cervical dystonia. Neck range of motion is very limited, especially forwa rd flexion. There is moderate to severe tenderness to palpation over left greater occipit al nerve with immediate reproduction of headache symptoms. There is severe tenderness to p alpation over right greater occipital nerve with immediate reproduction of headache symptom s. Spurling's test negative. BACK: Diffuse tenderness to palpation. Seated straight leg raise negative. Mahesh's te st negative. EXTREMITIES: Reveals no clubbing, cyanosis or edema in either upper extremity or left low er extremity. Right lower extremity is in a walking cast/boot. Right knee examination dem onstrates an interval resolution of swelling seen in right knee. At this point, there may be only trace swelling noted within the right knee, which is a dramatic reduction compared to the swelling noted on her previous examination. Fibromyalgia tender point examination d emonstrates 12/29 positive fibromyalgia tender points. This is a reduction in fibromyalgia tender points compared to previous examination. NEUROLOGICAL: Exam demonstrates intact memory, concentration, speech. Cranial nerves inta ct. Sensory intact in both upper extremities and both lower extremities. Reflexes normal over biceps and triceps of upper extremities. Patellar reflex intact bilaterally. Clonus is not tested at right ankle because the splint in place. No clonus at left ankle. Coord ination appears to be intact in all 4 extremities. Strength grossly intact in both upper ex tremities. Strength intact in the left lower extremity. Knee flexion, knee extension stre ngth intact in right lower extremity. Ankle dorsiflexion, ankle plantarflexion strength n ot tested in right lower extremity because of the splint in place. DATABASE: Right knee MRI 12/10/2014 imaging personally reviewed by me demonstrates grade 1 MCL injury. There is also transverse tear to posterior horn and medial meniscus. The ra diologist reports mild sprain to superior popliteal tendon. Radiologist notes a small join t effusion and bone marrow edema at the tibial plateau, consistent with osseous contusion. ASSESSMENT: 1. Chronic daily headaches, improving, ICD-10 R51. 2. Bilateral occipital neuralgia, ICD-10 M54.81. 3. Migraine without aura, without status migrainous, not intractable, ICD-10 G43.009. 4. Right knee pain, ICD-10 R25.561. 5. Meniscal tear, right knee, quiescent, ICD-10 S83.206D. PLAN: In regards to Ms. Lockwood's right knee pain she is currently doing very well. We discussed the effects of steroid injection may wear off in the future. We discussed that i f right knee pain returns in the future, she may elect to repeat knee steroid injection in hopes of once again reducing symptoms. We discussed that injection need to offer her long -term pain relief of 4 months or more for this to be a meaningful way of managing her knee pain. We discussed that if knee pain is escalating, recurring, worsening or fails to adequ ately respond to steroid injection, she may follow up with orthopedic surgeon to discuss a rthroscopic surgical treatment. In regards to her headaches. I suspect that a great deal of her headaches are stemming fr om cervical dystonia and greater occipital neuralgia. I will have her return to the clinic for bilateral greater occipital nerve blocks. Since they were previously denied by her i nsurance we will request these under ryan care in hopes of giving her some relief of sym ptoms. Lyrica has been very helpful in managing fibromyalgia symptoms as well as reducing her hea daches. She has no side effects to current dose. It is quite possible that increase dose may give her further improvement in symptoms. I have requested that she increase Lyrica to 75 mg 1 in the morning, 1 in the afternoon, and 2 at night. She then may increase to 2 i n the morning, 1 in the afternoon, and 2 at night. She may stop tapering up at the lowest effective dose. If she has side effects to medication she has been instructed to taper sowmya k down to the last dose of the medication that she is able to tolerate without side effects . She is advised to abstain from strong fragrances which may exacerbate her headaches. She has been fragrance free and noted reduction in headaches. She was also asked to avoid freq uent use of abortive pain medications. We discussed the risk of medication overuse/rebound headaches. She is asked to limit her use of abortive pain medications to no more than 3 times per week and no more than 9 times per month. Currently, she is only using sumatriptan . She indicates that her use of sumatriptan is much less than this frequency. Thank you for allowing me to be involved in the care of your patient. If you have any ques tions regarding the care of Ms. Lockwood, please do not hesitate to call. LEOINDAS MOHR JR, MD Dictated by LEONIDAS MOHR JR, MD 01/15/2015 16:06:49 Transcribed on 01/16/2015 07:44:19 by [facility] job# [id number] Confirmation #: [id number] signed by Leonidas Mohr MD at 01/16/2015 1:00 PM Sean CASTROmarshallLeonidas MD - 01/15/2015 12:28 PM PSTThis office note has been dictated. Job ID# [id number] signed by Leonidas Mohr MD at 01/15/2015 4:07 PM PSTdocumented in this encounter Plan of Treatment + + +--------+ + + | Name | Type | Priori | Associated Diagnoses | Order Schedule | | | | ty | | | + + +--------+ + + | Ambulatory referral | Outpatient | Routin | Bilateral | Ordered: 01/15/2015 | | to Physical Medicine | Referral | e | occipital neuralgia | | | Rehab | | | | | + + +--------+ + + documented as of this encounter Visit Diagnoses + + | Diagnosis | + + | Chronic daily headache - Primary Headache | + + | Bilateral occipital neuralgia Other syndromes affecting cervical region | + + | Migraine without aura and without status migrainosus, not intractable Migraine | | without aura, without mention of intractable migraine without mention of status | | migrainosus | + + | Right knee pain Pain in joint, lower leg | + + | Acute meniscal tear of right knee, subsequent encounter | + + documented in this encounter
--- OUTSIDE RECORDS SUMMARY | ~2019-09-17 | XMS | Encounter Summary ---
Demographics + + + | Address | [address] [facility] [address] | | | [place] [address] | + + + | Home Phone [...] | Author | [facility] | | | and [place] | + + + | Organization | [facility] | | | and [place] | [...] Team Providers + +------+ + | Care Radiologic Technology Program Director Name | Role | Phone | [...] | | | | CENTER [address] | [place], [place] | (Primary Dx); | | | | [place], [place] | [address] | Diverticulitis of | | | | [address] | | large intestine | | | | [phone] | | without perforation | | | [...] sent through Care Everywhere.DIVERTICULITIS, DISCHARGE INSTRUCTIONS FOR (POLISH)documented in this encounter Medications at Time of [...] might be di fferent from the original. [facility] Luz Maria Carmona Emergency Department Encounter Note [address] [place] [id number] PCP:Abimael Devlin MD ED14 CHIEF COMPLAINT: Chief [...] this before. She sees a doctor in [facility] and was told to come here because [...] on file Social History Narrative Lives in [place] in apartment. REVIEW OF SYSTEMS Review of [...] were reviewed along with EMS notes and long-term record s if applicable. Medication and Allergy lists reviewed in [facility]. Nurses note and old record s were reviewed if available within [facility] ER course 16:42 - Patient care initiated. [...] MD. Specialty: Family Medicine Contact information: [address] [place] [address] New Prescriptions AMOXICILLIN-CLAVULANATE (AUGMENTIN) 875-125 MG PER TABLET Take 1 tablet by mouth 2 time s daily for 7 days. OXYCODONE-ACETAMINOPHEN (PERCOCET) 5-325 MG PER TABLET Take 1 tablet by mouth every 6 h ours as needed. PROMETHAZINE (PHENERGAN) 25 MG TABLET Take 1 tablet by mouth every 4 hours as needed. Discharge References/Attachments DIVERTICULITIS, DISCHARGE INSTRUCTIONS FOR (POLISH) Administrations This Visit HYDROmorphone (DILAUDID) injection 1 [...] this chart may have been created with [employer] voice recognition software. Occasi onal wrong-word or sound-alike substitutions may have occurred due to the inherent gutierres itations of voice recognition software. Please read the chart carefully and recognize, using context, where these substitutions have occurred. Santos Hong MD 08/23/16 9599 documented in this e ncounter Miscellaneous Notes [...] + | [facility] | [address] | [place] | [phone] | | [facility] | | [address] | | | - LABORATORY | | [...] [address] | [place] | [phone] | | [facility] | | [address] | | | - LABORATORY | | [...] [address] | [place] | [phone] | | [facility] | | [address] | | | - LABORATORY | | [...] + | [facility] | [address] | [place] | [phone] | | [facility] | | [address] | | | - LABORATORY | | | | + + + + + Lipase (08/23/2016 5:21 PM PDT) + +-------+ + + + | Component | Value | Ref Range | Performed | Pathologist | | | | | At | Signature | + +-------+ + + + | Lipase | 18 | 0 - 60 U/L | [facility] | | | | | | [facility] [...] [facility] | [address] | [place] | [phone] | | [facility] | | [address] | | | - LABORATORY | | [...] | | | | | mg/dL | [facility] | | | | | | MEDICAL | | | | | | CENTER - | | | | | | LABORATORY | | + + + + + + | eGFR if not | >60Comment: GLOMERULAR | >=60 | [facility] | | | | FILTRATION | mL/min/1.73m2 | [facility] | | | [place] | RATE,ESTIMATED | | MEDICAL | | | | mL/min/1.47s2Jtuq than | | CENTER - | | [...] | + + + + + | [facility] | [address] | [place] | [phone] | | [facility] | | [address] | | | - LABORATORY | | [...] | | | | g/dL | [facility] | | | | [...] | Lymphocytes | | K/uL | [facility] | [...] ST. | [address] | [place], [place] | [phone] | | [facility] | | [address] | | | - LABORATORY | | [...] | ondansetron (ZOFRAN) injection | Given | 06/12/20 | 8 mg | | | | [...]
--- OUTSIDE RECORDS SUMMARY | ~2019-09-17 | XMS | Encounter Summary ---
Demographics + + + | Address | [address] [facility] [address] | | | [place] [address] | + + + | Home Phone | | + + + | Preferred Language | Unknown | + + + | Marital Status | | + + + | Zoroastrianism Affiliation | 1013 | + + + | Race | Unknown | + + + | Ethnic Group | Unknown | + + + Author + + + | Author | [facility] | | | and [place] | + + + | Organization | [facility] | | | and [...] Team Providers + +------+ + | Care Head Filter Tank Tender Helper Name | Role | Phone | [...] + + | Closed | Specialty | Rehabilitatio | Diagnoses | [place] | [facility] | | | Services | n | | Leonidas Vargas MD | Pt Op [address] | | | Required | | Sensorineura | [address] | [place] | | | | | l hearing | [address] | [place], | | | | | loss, | [place] | [place] [address] | | | | | bilateral | [place] | Phone: | | | | | Benign | [address] | [phone] | | | | | paroxysmal | Phone: | Fax: | | | | | positional | [phone] | [phone] | | | | | vertigo | Fax: | | | | | | [phone] | [phone] | | | | | | (ICD-9-CM) - | | | | | | | H81.10 | | | | | | | (ICD-10-CM) | | | | | | | - Benign | | | | | | | paroxysmal | | | | | | | positional | | | | | | | vertigo, | | | | | | | unspecified | | | | | | | laterality | | | | | | | Procedures | | | | | | | pt eval | | | +--------+ + + + + + Encounter Details +--------+ + + + + | Date | Type | Department | Care Team | Description | +--------+ + + + + | 11/29/ | Orders Only | [facility] | Leonidas Huddleston MD | Benign paroxysmal | | 2015 | | OTOLARYNGOLOGY [address] | [address] | positional vertigo, | | | | [address] | [address] [place] | unspecified | | | | [place], [place] | [place] [address] | laterality (Primary | | | | [address] | [phone] | Dx); Sensorineural | | | | [phone] | | hearing loss, | | | | | | bilateral | +--------+ + + + + Social [...] Ambulatory referral | Outpatient | Routin | Benign paroxysmal | Expected: | | to ENT | Referral | e | positional vertigo, | 11/29/2014, Expires: | | | | | unspecified | 11/29/2015 | | | | | laterality | | | | | | Sensorineural | | | | | | hearing loss, | | | | | | bilateral | | + + +--------+ + + documented as of this encounter Visit Diagnoses + + | Diagnosis | + + | Benign paroxysmal positional vertigo, unspecified laterality - Primary | + + | Sensorineural hearing loss, bilateral | + + documented in this encounter"
--- OUTSIDE RECORDS SUMMARY | ~2019-09-17 | XMS | Encounter Summary ---
Demographics + + + | Address | [address] [facility] [address] | | | [place] [address] | + + + | Home Phone | | + + + | Preferred Language | Unknown | + + + | Marital Status | | + + + | Zoroastrian Affiliation | 1013 | + + + | Race | Unknown | + + + | Ethnic Group | Unknown | + + + Author + + + | Author | [facility] | | | and [place] | + + + | Organization | [facility] | | | and [...] Team Providers + +------+ + | Care Financial Investment Manager Name | Role | Phone | + +------+ + | Wicho Starkey MD | PCP | | + +------+ + Encounter Details +--------+ + + + + | Date | Type | Department | Care Team | Description | +--------+ + + + + | 08/09/ | Abstract | [facility] | Paco Gonzalez | | | 2014 | | PHYSIATRY [address] | MD Brooke [address] | | | | | [address] | [address] [place] | | | | | [place] | [address] | | | | | [address] | | | | | | [phone] | | | +--------+ + + + [...]
--- OUTSIDE RECORDS SUMMARY | ~2019-09-17 | XMS | Encounter Summary ---
Demographics + + + | Address | [address] [facility] [address] | | | [place] [address] | + + + | Home Phone [...] + + | Author | [facility] | | | and [place] | + + + | Organization | [facility] | | | and [place] [...] Team Providers + +------+ + | Care Cargo Services Coordinator Name | Role | Phone | + +------+ + | Teena Busch NP | PCP | | + +------+ + Reason for Visit + +--------+ + | Reason | Onset | Comments | | | Date | | + +--------+ + | Medication Question | 08/06/ | | | | 2015 | | + +--------+ + Encounter Details +--------+ + + + + | Date | Type | Department | Care Team | Description | +--------+ + + + + | 08/06/ | Telephone | [facility] | Leonidas Huddleston, | Medication Question | | 2016 | | PHYSIATRY [address] | [address] | | | | | [address] | [place], [place] | | | | | [place], [place] | [address] | | | | | [address] | | | | | | [phone] | | | +--------+ + + + [...] Telephone Encounter - Charmaine Dangelo RN - 08/19/2015 3:55 PM PDTPatient has not returne d call, encounter closed, please see note if Patient calls back elephone Encounter - Rebekah Bustamante - 08/18/2015 1:08 PM PDTPatient has not returned call to the office. Plecherie se advise elephone Encount er - Charmaine Dangelo RN - 08/13/2015 10:25 AM PDTCalled to verify info with pharmacy. Manuela min at the Pharmacy states he has no record of Patient bringing this Rx in to the pharmacy. Ch ad states he does not a PA for lyrica 75mg in process from another provider. If Patient call s back she should be asked to have the PA completed with her PCP. Patient should not be rece iving multiply Rx of this medication from different provider. Patient called to be given this info, Patient not available. VM not available. If Patient calls back please give her this info. Thank you. elephone Encounter - Leonidas Huddleston MD - 08/12/2015 12:54 PM PDTLyrica does not come in 60 mg caps ules. Please clarify with patient and pharmacy. elephone Encounter - Charmaine Dangelo RN - 08/12/2015 11:54 AM P Ed, If the the pharmacy/insurance will only approve the 60 mg rather than 100mg, would you like me to change the order to 60 mg capsules?Electronically signed by Charmaine Dangelo RN at 11:58 AM PDTTelephone Encounter - Natasha Shah - 08/07/2015 11:13 AM PDTPatient s tates that she was told by her insurance and her pharmacy that Lyrica 100mg would not be fernanda roved, but that 60mg would be. She states that a form was faxed to the office stating this. She would like us to clarify this with the pharmacy.Electronically signed by Natasha suazo 08/07/2015 11:14 AM PDTdocumented in this encounter Plan of Treatment Not on filedocumented as of this encounter Visit Diagnoses Not on filedocumented in this encounter"
--- OUTSIDE RECORDS SUMMARY | ~2019-09-17 | XMS | Encounter Summary ---
Demographics + + + | Address | [address] [facility] [address] | | | [place] [address] | + + + | Home Phone | | + + + | Preferred Language | Unknown | + + + | Marital Status | | + + + | Pentecostalism Affiliation | 1013 | + + + | Race | Unknown | + + + | Ethnic Group | Unknown | + + + Author + + + | Author | [facility] | | | and [place] | + + + | Organization | [facility] | | | and [...] Team Providers + +------+ + | Care Liquefied Natural Gas Plant Operator Name | Role | Phone | + +------+ + PCP | Unavailable | + +------+ + Encounter Details +--------+ + + + + | Date | Type | Department | Care Team | Description | +--------+ + + + + | 01/20/ | Hospital | [facility] | Hans Sheikh | CONVULSIONS NEC | | 2004 | Encounter | CONVERSION DEP [address] | [address] | ([facility]) | | | | [address] | [place] | | | | | [place], [place] | [address] | | | | | [address] | [phone] | | | | | [phone] | | | +--------+ + + + [...]
--- OUTSIDE RECORDS SUMMARY | ~2019-09-17 | XMS | Encounter Summary ---
Demographics + + + | Address | [address] [facility] | | | [place] [address] | + + + | Home Phone [...] + + | Author | [facility] | | | and [place] | + + + | Organization | [facility] | | | and [...] Team Providers + +------+ + | Care Pastoral Counselor Name | Role | Phone | + [...] | | | | [address] | [place] [address] | | | | | [place] [address] | | | | | | [phone] | | | +--------+ + + + [...]
--- OUTSIDE RECORDS SUMMARY | ~2019-09-17 | XMS | Encounter Summary ---
Demographics + + + | Address | [address] [facility] | | | [place] [address] | + + + | Home Phone [...] Author | [facility] | | | and [place] | + + + | Organization | [facility] | | | and [place] [...] Team Providers + +------+ + | Care Installer Molding And Trim Name | Role | Phone | + [...] | Leonidas Irving MD | [address] | | | | | pain | [address] | [place], | | | | | Swelling of | [address] | [place] | | | | | right knee | [place], | [address] | | | | | joint | [place] [address] | Phone: | | | | | Procedures | Phone: | [phone] | | | | | MRI Knee | [phone] | Fax: | | | | | Right wo | Fax: | [phone] | | | | | Contrast | [phone] | | +--------+--------+ + + + + [...] | Leonidas Irving MD | [address] | | | | | pain | [address] | [place], | | | | | Swelling of | [address] | [place] | | | | | right knee | [place], | [address] | | | | | joint | [place] [address] | Phone: | | | | | Procedures | Phone: | [phone] | | | | | MRI Knee | [phone] | Fax: | | | | | Right wo | Fax: | [phone] | | | | | Contrast | [phone] | | +--------+--------+ + + + + Encounter Details +--------+ + + + + | Date | Type | Department | Care Team | Description | +--------+ + + + + | 12/10/ | Hospital | [facility] | Leonidas Huddleston, | Right knee pain; | | 2014 | Encounter | MED CTR MRI [address] | MD [address] | Swelling of right | | | | [place], | [place], [place] | knee joint | | | | [place] [address] | [address] | | | | | [phone] | | | +--------+ + + + [...] right knee swelling. COMPARISON: Right knee | [facility] | | x-ray 12/04/2014. PROTOCOL: Axial proton density fat sat, sagittal | [facility] | | proton density, coronal proton density [...] + | [facility] | [address] | [place] | [phone] | | [facility] | | [address] | | | - IMAGING | | [...]
--- OUTSIDE RECORDS SUMMARY | ~2019-09-17 | XMS | Encounter Summary ---
Demographics + + + | Address | [address] [facility] [address] | | | [place] [address] | + + + | Home Phone [...] Author | [facility] | | | and [place] | + + + | Organization | [facility] | | | and [place] [...] Team Providers + +------+ + | Care Etiquette Teacher Name | Role | Phone | [...] + | 04/05/ | Office | [facility] | Sundeep Ba PA | CONSUELO on CPAP (Primary | | 2019 | Visit | SLEEP DISORDER [address] | [address] | Dx) | | | | [address] [place] | [place] | | | | | [place] [address] | [address] | | | | | [phone] | | | +--------+---------+ + + + [...] | 122.3 kg (269 lb | 04/05/2018 3:15 PM | | | | 11.7 oz) | PST | | + + + + + | Height | - | - | | + + + + + | Body Mass Index | 39.83 | 03/27/2018 12:57 PM | | | | | PST | | + + + + + documented in this encounter Progress Notes Sundeep Ba PA - 04/05/2018 3:30 PM PST Subjective: Patient ID: Luz Maria Kitchen Kristine is a 62 y.o. female. HPI last office visit was: 01/31/2018 date of split-night polysomnography: 12/03/2014 AHI: 62.1 RDI: 69.2 O2%: 74% with 27.0 minutes below 88% Machine type: ResMed AirSense 10 Mask type: nasal mask DME: [facility] in [place] pressure: 9-20 cm (lowered to 4-8 cm [...] Exam Assessment: Problem #1: OBSTRUCTIVE SLEEP APNEA (HVA26-H45.33) This is controlled with CPAP. She improved her usage with her CPAP, but is still inconsist ent with it. Plan: 1. She is to continue with CPAP indefinitely. 2. She is to work toward wearing her CPAP 100% of the time she is asleep. I will follow up again in 2 months, sooner prn. Fifteen minutes were spent [id number], w ith the majority of time spent [...]
--- OUTSIDE RECORDS SUMMARY | ~2019-09-17 | XMS | Encounter Summary ---
Demographics + + + | Address | [address] [facility] [address] | | | [place] [address] | + + + | Home Phone [...] [facility] | | | and [place] | + + + | Organization | [facility] | | | and [...] Team Providers + +------+ + | Care Skills Instructor Name | Role | Phone | [...] + + | 12/20/ | Emergency | [facility] | Rj Leung MD | Knee pain, acute, | | 2014 | | MED CTR EMERGENCY | [address] | unspecified | | | | CENTER [address] | [place] | laterality (Primary | | | | [place] | [address] | Dx) | | | | [address] | | | | | | [phone] | | | +--------+ + + + [...] Leung MD - 12/20/2014 10:[address] [facility]ona Emergency Department Encounter Note [address] [place] [address] PCP:Wicho Starkey MD [phone] CHIEF COMPLAINT: Knee [...]
--- OUTSIDE RECORDS SUMMARY | ~2019-09-17 | XMS | Encounter Summary ---
Demographics + + + | Address | [address] [facility] | | | [place] [address] | + + + | Home Phone [...] | Author | [facility] | | | and [place] | + + + | Organization | [facility] | | | and [...] Team Providers + +------+ + | Care Material Handler Name | Role | Phone | + [...] | | | | CENTER [address] | [place] | laterality (Primary | | | | [place] | [address] | Dx) | | | | [address] | | | | | | [phone] | | | +--------+ + + + [...] | inject 0.5 | | 0 | 01/05/ | | | QUADRIVALENT 0.5 ML | [...] daily headache Chronic pain Depression treated through [employer] Diabetes mellitus ([facility]) [...] Procedure: COLONOSCOPY; Surgeon: Patrick England MD; Location: [facility] MEDICAL PROCEDURE UNIT HYSTERECTOMY KNEE CARTILAGE [...] Concern None Social History Narrative Lives in [place] in apartment. CURRENT MEDICATIONS Previous Medications ALBUTEROL [...] needed for Pain. Rj Leung MD 03/27/18 1351 Rae Huddleston RN - 0 03/27/2018 12:56 PM PSTC/o [...]
--- OUTSIDE RECORDS SUMMARY | ~2019-09-17 | XMS | Encounter Summary ---
Demographics + + + | Address | [address] [facility] [address] | | | [place] [address] | + + + | Home Phone | | + + + | Preferred Language | Unknown | + + + | Marital Status | | + + + | Pentecostal Affiliation | 1013 | + + + | Race | Unknown | + + + | Ethnic Group | Unknown | + + + Author + + + | Author | [facility] | | | and [place] | + + + | Organization | [facility] | | | and [...] Team Providers + +------+ + | Care Academic Computing Director Name | Role | Phone | + +------+ + | Abimael Devlin MD | PCP | | + +------+ + Reason for Visit +--------+--------+ + | Reason | Onset | Comments | | | Date | | +--------+--------+ + | Other | 01/05/ | | | | 2016 | | +--------+--------+ + Encounter Details +--------+ + + + + | Date | Type | Department | Care Team | Description | +--------+ + + + + | 01/05/ | Telephone | [facility] [place] | Leonidas Huddleston, | Other | | 2015 | | PHYSIATRY [address] | MD [address] | | | | | [address] | [place], [place] | | | | | [place], [place] | [address] | | | | | [address] | | | | | | [phone] | | | +--------+ + + + [...] Telephone Encounter - Ciara Varela RN - 01/07/2016 9:19 AM PDTReturned Seat 14A's phone call and she states the Lyrica request was denied, and the patient has requested an appeal. She states the last time Lyrica was approved, a Dx for: Diabetic Neuropathy was included, a nd she was wondering if this was something that Dr. Flaquito Santos previously diagnosed the patien t with, and if it was still a current diagnosis. She was informed that after looking through the previous OV with Dr. Flaquito Santos no Dx for Isabela betic Neuropathy was found. Radha verbalized understanding. Called Radha to inform her that Dr. Flaquito Santos prescribed Lyrica to the patient on 5. Per Dr. Flaquito Santos's OV note from 12/02/14: "She reports that she was prescribed 75 mg by h er doctor. She tried taking the medication. It seemed less effective than the 150 mg t hat she took once. She is wondering if she could be on Lyrica. Once again, she repor ts that she has not been on Lyrica recently...She will start taking Lyrica 75 mg 1 capsule 3 times per day. Since we are trying to treat cervical spinal stenosis and fibromyalgia , headaches, we may further taper up Lyrica in the future. Therapeutic dose of Lyrica is usually around 300 mg per day. May consider tapering up to 75 mg 2 capsules twice per d ay in the future." Patient's PCP at the time was Wicho Starkey MD. Radha was unavailable. M requesting a call back. elephone Encounter - Emilia Faust - 01/06/2016 10:[address] [facility]. Please call her at [phone] ext [phone]. Please advise documented in t his encounter Plan of Treatment Not on filedocumented as of this encounter Visit Diagnoses Not on filedocumented in this encounter
--- OUTSIDE RECORDS SUMMARY | ~2019-09-17 | XMS | Encounter Summary ---
Demographics + + + | Address | [address] [facility] | | | [place] [address] | + + + | Home Phone | | + + + | Preferred Language | Unknown | + + + | Marital Status | | + + + | Druze Affiliation | 1013 | + + + | Race | Unknown | + + + | Ethnic Group | Unknown | + + + Author + + + | Author | [facility] | | | and [place] | + + + | Organization | [facility] | | | and [...] Team Providers + +------+ + | Care Linoleum Layer Name | Role | Phone | + [...] 2016 | | GASTROENTEROLOGY | [address], [place] | | | | | [address] [place] | [address] [place] | | | | | [address] [place], [place] | [address] | | | | | [address] | | | | | | [phone] | | | +--------+ + + + [...]
--- OUTSIDE RECORDS SUMMARY | ~2019-09-17 | XMS | Encounter Summary ---
Demographics + + + | Address | [address] [facility] | | | [place] [address] | + + + | Home Phone | | + + + | Preferred Language | Unknown | + + + | Marital Status | | + + + | Hoahaoism Affiliation | 1013 | + + + | Race | Unknown | + + + | Ethnic Group | Unknown | + + + Author + + + | Author | [facility] | | | and [place] | + + + | Organization | [facility] | | | and [...] Team Providers + +------+ + | Care Electronic Science Teacher Name | Role | Phone | [...] PHYSIATRY [address] | MD [address] | | | | | [address] | [place], [place] | | | | | [place], [place] | [address] | | | | | [address] | | | | | | [phone] | | | +--------+ + + + [...]
--- OUTSIDE RECORDS SUMMARY | ~2019-09-17 | XMS | Encounter Summary ---
Demographics + + + | Address | [address] [facility] [address] | | | [place] [address] | + + + | Home Phone [...] + | Author | [facility] | | | and [place] | + + + | Organization | [facility] | | | and [place] [...] Team Providers + +------+ + | Care Heel Cementer Machine Name | Role | Phone | + [...] [place] | | | | | | [place] [address] | [place], [place] | | | | | | Phone: | [address] | | | | | | [phone] | Phone: | | | | | | Fax: | [phone] | | | | | | [phone] | Fax: | | | | | | | [phone] | +--------+ + + + + + [...] | | | | [address] | [place], [place] | | | | | | [place], | [address] Phone: | | | | | | [place] [address] | [phone] | | | | | | Phone: | Fax: | | | | | | [phone] | [phone] | | | | | | Fax: | | | | | | | [phone] | | +--------+--------+ + + + + Encounter Details +--------+---------+ + + + | Date | Type | Department | Care Team | Description | +--------+---------+ + + + | 09/01/ | Office | [facility] [place] | FedericoAndre | Primary | | 2019 | Visit | ORTHOPEDIC SURGERY | MD Rojelio [address] | osteoarthritis of | | | | [address] [place] | [place], [place] | both knees (Primary | | | | [place] | [address] | Dx) | | | | [address] | | | | | | [phone] | | | +--------+---------+ + + + [...] for her to start aqua therapy through [facility] in [place], [place] where she lives. We have encouraged [...] | + + +--------+ + + | [facility] | Outpatient | Routin | Primary | [...]
--- OUTSIDE RECORDS SUMMARY | ~2019-09-17 | XMS | Encounter Summary ---
Demographics + + + | Address | [address] [facility] [address] | | | [place] [address] | + + + | Home Phone | | + + + | Preferred Language | Unknown | + + + | Marital Status | | + + + | Sabianist Affiliation | 1013 | + + + | Race | Unknown | + + + | Ethnic Group | Unknown | + + + Author + + + | Author | [facility] | | | and [place] | + + + | Organization | [facility] | | [...] Team Providers + +------+ + | Care Sponsorship Manager Name | Role | Phone | + +------+ + | Abimael Devlin MD | PCP | | + +------+ + Encounter Details +--------+ + + + + | Date | Type | Department | Care Team | Description | +--------+ + + + + | 06/07/ | [facility] | [facility] | Andre Caballero | Chronic pain of both | | 2019 | Encounter | MED CTR YAZMIN Serrato MD [address] | knees | | | | [address] [place] | [place] | | | | | [place] | [address] | | | | | [address] | | | | | | [phone] | | | +--------+ + + + [...]
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
--- OUTSIDE RECORDS SUMMARY | ~2019-09-17 | XMS | Encounter Summary ---
Demographics + + + | Address | [address] [facility] | | | [place] [address] | + + + | Home Phone [...] Author | [facility] | | | and [place] | + + + | Organization | [facility] | | | [...] Team Providers + +------+ + | Care College Or University Business Manager Name | Role | Phone | [...] | occipital | [address] | | | | n | neuralgia | [address] | [place], | | | | | Procedures | [place], | [place] [address] | | | | | [place] INJECT | [place] [address] | Phone: | | | | | NERV | Phone: | [phone] | | | | | GREGORIO MILLER | [phone] | Fax: | | | | | OCCIPTL [place] | Fax: | [phone] | | | | | BETAMETHASON | [phone] | | | | | | E [...] | | | | | positional | [address] | [address] | | | | | vertigo | [place] M[place]IN, | [address] | | | | | Procedures | [place] [address] | [address] | | | | | 8/14 PEND | Phone: | [place], | | | | | [place] | [phone] | [place] [address] | | | | | | Fax: | Phone: | | | | | | [phone] | [phone] | | | | | | | Fax: | | | | | | | [phone] | +--------+ + + + + + [...] | | | | | positional | [address] | [address] [place] | | | | | vertigo | [place], | [address] [place] | | | | | Procedures | [place] [address] | [place], [place] | | | | | [address] PEND | Phone: | [phone] | | | | | [place] | [phone] | Phone: | | | | | | Fax: | [phone] | | | | | | [phone] | Fax: | | | | | | | [phone] | +--------+ + + + + + [...] PHYSIATRY [address] | MD [address] | Dx); Bilateral | | | | [address] | [place], [place] | occipital neuralgia; | | | | [place], [place] | [address] | Chronic daily | | | | [address] | | headache; | | | | [phone] | | Cervicalgia; | | | | [...] MD - 10/16/2014 2:13 PM PDT [facility] PHYSIATRY [address] [facility] [address] OFFICE NOTE LEONIDAS MOHR JR, MD Patient: LUZ MARIA LOCKWOOD Admitting: MR #: [id number] LOC: PT TYPE: Adm Date: 10/16/2014 : [...] Transcribed on 10/16/2014 19:17:28 by hailee job# [id number] Confirmation #: [id number] cc: WICHO STARKEY MD Leonidas Mijares MD - 10/16/2014 1:33 PM PDTThis office note has been dictated. Job ID# [id number] signed by Leonidas Mohr MD at 10/16/2014 [...]
--- OUTSIDE RECORDS SUMMARY | ~2019-09-17 | XMS | Encounter Summary ---
Demographics + + + | Address | [address] [facility] [address] | | | [place] [address] | + + + | Home Phone [...] + | Author | [facility] | | | and [place] | + + + | Organization | [facility] | | | and [...] Team Providers + +------+ + | Care Chemical Process Analyst Name | Role | Phone | + +------+ + | Teena Busch NP | PCP | | + +------+ + Reason for Visit + +--------+ + | Reason | Onset | Comments | | | Date | | + +--------+ + | Medication Refill | 09/23/ | | | Assistance | 2016 | | + +--------+ + Encounter Details +--------+ + + + + | Date | Type | Department | Care Team | Description | +--------+ + + + + | 09/23/ | Telephone | [facility] | Leonidas Huddleston, | Medication Refill | | 2016 | | PHYSIATRY [address] | [address] | Assistance | | | | [address] | [place], [place] | | | | | [place], [place] | [address] | | | | | [address] | | | | | | [phone] | | | +--------+ + + + [...] this encounter Miscellaneous Notes Telephone Encounter - Rebekah Bustamante - 09/24/2015 8:18 AM PDTReceived call from patient r egarding a prescription Dr. Huddleston gave for Lyrica 100mg. Per patient her insurance will only approved 75mg and she is wanting to know if Dr. Huddleston can re-order the medication. Please a dvise documented in this en counter Plan of Treatment Not on filedocumented as of this encounter Visit Diagnoses Not on filedocumented in this encounter"
--- OUTSIDE RECORDS SUMMARY | ~2019-09-17 | XMS | Encounter Summary ---
Demographics + + + | Address | [address] [facility] [address] | | | [place] [address] | + + + | Home Phone [...] + + | Author | [facility] | | | and [place] | + + + | Organization | [facility] | [...] Team Providers + +------+ + | Care Tobacco Farmworker Name | Role | Phone | + [...] Medicine | Obstructive | Andre Arnold | [place] [address] [address] | | | Required | | sleep apnea | MD David Montoya | Just[place] | | | | | (adult) | [place] | [place], | | | | | (pediatric) | [place] | [place] [address] | | | | | Bipolar I | [place], [place] | Phone: | | | | | disorder, | [address] | [phone] | | | | | most recent | Phone: | Fax: | | | | | episode (or | [phone] | [phone] | | | | | current) | Fax: | | | | | | unspecified | [phone] | | | | | | Type [...] | | | | | | | [place] POLYSOM | | | | | | | 6/>YRS SLEEP | | | | | | | 4/> ADDL | | | | | | | [place]ES[place] ATTND | | | | | | | [place] POLYSOM | | | | | | | 6/>YRS SLEEP | | | | | | | W/CPAP 4/> | | | | | | | ADDL LEESA | | | | | | | ATTND | | | | | | | Having [phone] | | | | | | | not [address] | | | +--------+ + + + + + Encounter Details +--------+ + + + + | Date | Type | Department | Care Team | Description | +--------+ + + + + | 12/03/ | Hospital | [facility] | Andre Ugarte | Obstructive sleep | | 2014 | Encounter | MED CTR SLEEP | MD Jan [address] | apnea (adult) | | | | [address] [place] | [facility] | (pediatric) (Primary | | | | [place], [place] | [place] [address] | Dx); [place] | | | | [address] | [phone] | (obstructive sleep | | | | [phone] | | apnea) | +--------+ + + [...] + + documented as of this encounter Procedure Notes Andre Ugarte Jr., MD - 12/05/2014 1:18 PM PDTProcedure(s): [place] [address] POLYSOMNOGRAPHY W/CPAPPre-Procedure Diagnose(s): OCNSUELO (obstructive sleep apnea)Post-Procedure Diagnose(s): O SA (obstructive sleep apnea) [facility] [place] [address] Split-Night Polysomnogram/Positive Airway Pressure Titration Report on Luz Maria Carmona Performed on 12/03/2014. Clinical Information: Luz Maria Carmona is a 59 y.o. female who underwent nocturnal bernardino ysomnography using a "Split-Night" Protocol on 12/03/[address] José Antonio Huddleston be cause of possible Obstructive Sleep Apnea. Technical Information: Please see technical data stored as Polysomnography under "Media" se ction in the [facility] EMR. Definitions (The AASM Manual for the Scoring of Sleep and Associated Events, Version 2.0; 2 012): Apnea:There is a drop in the peak signal excursion by 90% or greater of pre-event baseline using an oronasal thermal sensor (diagnostic study), PAP device flow (titration study), or an alternative apnea sensor (diagnostic study); the duration of the 90% or greater drop in s ensor signal is 10 seconds or longer. Obstructive Apnea: Event associated with continued or increased inspiratory effort throug hout the entire period of absent airflow. Central Apnea: Event associated with absent inspiratory effort throughout the entire julia od of absent airflow. Mixed Apnea: Event associated with absent inspiratory effort in the initial portion of th e event followed by resumption of inspiratory effort during the second portion of the event. Hypopnea: Nasal pressure excursion drop by 30% or more from baseline, lasting at lease 10 seconds and 90% of the event's duration meets this amplitude criteria. This is associated wi th a 4% or greater desaturation from pre-baseline. Respiratory Event Related Arousal: A sequence of breaths lasting 10 seconds or longer rica acterized by increasing respiratory effort or by flattening of the inspiratory portion of th e nasal pressure (diagnostic study) or PAP device flow (titration study) waveform leading to arousal from sleep when the sequence of breaths does not meet criteria for an apnea or hypo pnea. The study was conducted in two parts. The first 165 minutes of study time was spent as a d iagnostic study and the second 325.5 minutes was spent with the patient undergoing positive airway titration. DIAGNOSTIC PORTION OF THE EVENING Sleep [...] severely fragmented; the Arousal Index was 69.7 durin g the diagnostic portion of the evening. Sleep [...] the patient. 2. APAP 9-20cm is advised. Andre Ugarte Jr., MD, [facility] Hand Molder Cornleia Del Rosario [facility] [place], [place] Clinical flue gas analyst [facility], [place] documented in th is encounter Plan of [...]
--- OUTSIDE RECORDS SUMMARY | ~2019-09-17 | XMS | Encounter Summary ---
Demographics + + + | Address | [address] [facility] | | | [place] [address] | + + + | Home Phone [...] Author | [facility] | | | and [place] | + + + | Organization | [facility] | | | and [place] [...] Team Providers + +------+ + | Care Box Sealing Machine Operator Name | Role | Phone | + +------+ + | Abimael Devlin MD | PCP | | + +------+ + Encounter Details +--------+ + + + + | Date | Type | Department | Care Team | Description | +--------+ + + + + | 04/03/ | Orders Only | [facility] | Max Gillette, | | | 2014 | | CARDIOLOGY CHEN | MD [address] | | | | | [address] | [place] [address] [place] | | | | | SY RAO | [place] [address] | | | | | [place] | [phone] | | | | | [address] | | | | | | [phone] | | | +--------+ + + + [...] Performed At | + + + | [facility] Nuclear Lexiscan Stress Test | | [...] Tha, Rad Conversion - 11/03/2018 12:23 PM [facility] CARDIOLOGYNuclear | | Lexiscan Stress Test INDICATION [...] | | headache, nausea, and chest pain 2/10 Stress EKG showed no changes from baseline. [...]
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
--- OUTSIDE RECORDS SUMMARY | ~2019-09-17 | XMS | Encounter Summary ---
Demographics + + + | Address | [address] [facility] [address] | | | [place] [address] | + + + | Home Phone [...] | [facility] | | | and [place] | + + + | Organization | [facility] [...] Team Providers + +------+ + | Care Automation And Control Engineer Name | Role | Phone | [...] [place] | | | | | | [address] | | | | | | [phone] | | | +--------+ + + + [...]
--- OUTSIDE RECORDS SUMMARY | ~2019-09-17 | XMS | Encounter Summary ---
Demographics + + + | Address | [address] [facility] [address] | | | [place] [address] | + + + | Home Phone [...] + | Author | [facility] | | | and [place] | + + + | Organization | [facility] | | | and Ovidioana [...] Team Providers + +------+ + | Care Toby Maker Name | Role | Phone | + [...] and | Occipital | Teena Ann, | Beth Irving MD [address] | | | | Rehabilitatio | neuralgia | CATALYTIC CONVERTER OPERATOR HELPER [address] | | | | n | neck pain | [address] | [place], | | | | | follow up | [address] | [place] [address] | | | | | | [place], | Phone: | | | | | | [place] [address] | [phone] | | | | | | Phone: | Fax: | | | | | | [phone] | [phone] | | | | | | Fax: | | | | | | | [phone] | | +--------+--------+ + + + + Encounter Details +--------+---------+ + + + | Date | Type | Department | Care Team | Description | +--------+---------+ + + + | 11/13/ | Office | [facility] | Leonidas Mohr, | Chronic daily | | 2016 | Visit | PHYSIATRY [address] | MD [address] | headache (Primary | | | | [address] | [place] | Dx); Migraine | | | | [place] | [address] | without aura and | | | | [address] | | without status | | | | [phone] | | migrainosus, not | | | [...] MD - 11/14/2015 1:00 PM PDT [facility] PHYSIATRY [address] [facility] [address] OFFICE NOTE LEONIDAS MOHR JR, MD Patient: LUZ MARIA LOCKWOOD Admitting: MR #: [id number] LOC: PT TYPE: Adm Date: 11/14/2015 : 1955 PHYSICAL MEDICINE REHABILITATION PROGRESS NOTE DATE OF : 1955 PRIMARY CARE PROVIDER: Teena Busch DATE OF SERVICE: 11/14/2015. PATIENT IDENTIFICATION: The patient was last seen by ga 07/2015. At that time, it was fe [...] h er headaches are over the bilateral yazdanism, bilateral forehead, and bilateral occipital reg ions. [...] also be contributing to headaches. We h howiebeth asked her to avoid all ibuprofen. Her [...] 13:00:02 Transcribed on 11/15/2015 06:18:[birth year] by job# [id number] Confirmation #: [id number] signed by Leonidas Mohr MD at 11/19/2015 12:38 PM Leonidas Salas MD - 11/14/2015 9:29 AM PDTThis office note has been dictated. Report Confirmation# [id number] signed by Leonidas Mohr MD at 11/14/2015 [...]
--- OUTSIDE RECORDS SUMMARY | ~2019-09-17 | XMS | Encounter Summary ---
Demographics + + + | Address | [address] [facility] [address] | | | [place] [address] | + + + | Home Phone [...] | Author | [facility] | | | and [place] | + + + | Organization | [facility] | | | and [...] Team Providers + +------+ + | Care Website Admin Name | Role | Phone | + [...] + + | 07/13/ | [facility] | [facility] | Sundeep Ba PA | CONSUELO on CPAP (Primary | | 2016 | Visit | SLEEP DISORDER [address] | [address] | Dx) | | | | [address] [place] | [place] | | | | | [place] [address] | [address] | | | | | [phone] | | | +--------+---------+ + + + [...] AirSense 10 with nasal mask obtained from: [employer] in [place] pressure: 9-20 cm (lowered to 4-8 cm [...] Exam Assessment: Problem #1: OBSTRUCTIVE SLEEP APNEA ([id number]) This is controlled with CPAP. She had [...] months, sooner prn. Fifteen minutes were spent vpeq-es-gana, w ith the majority of time spent in counseling. Sundeep Ba PA-C cc: Teena Busch, SOLDERING MACHINE OPERATOR HELPER-DARRYN documented in this enco unter Plan of Treatment Not on filedocumented as of this encounter Visit Diagnoses + + | Diagnosis | + + | CONSUELO on CPAP - Primary Obstructive sleep apnea (adult) (pediatric) | + + documented in this encounter
--- OUTSIDE RECORDS SUMMARY | ~2019-09-17 | XMS | Encounter Summary ---
Demographics + + + | Address | [address] [facility] [address] | | | [place] [address] | + + + | Home Phone [...] | Author | [facility] | | | and [place] | + + + | Organization | [facility] [...] Team Providers + +------+ + | Care Manual Arts Therapist Name | Role | Phone | + +------+ + PCP | Unavailable | + +------+ + Encounter Details +--------+ + + + + | Date | Type | Department | Care Team | Description | +--------+ + + + + | 01/08/ | [facility] | [facility] | | | | 2012 | Encounter | MED CTR XRAY [address] | | | | | | [place] | | | | | | [place] [address] | | | | | | [phone] | | | +--------+ + + + [...] Performed At | + + + | [facility] Diagnostic Imaging | [facility] | | Department [address] [address] | [facility] | | [ rep [address]] [ rep [facility] | | [facility]] Signed | - IMAGING | | | | | Patient Name: LUZ MARIA LOCKWOOD | | | Physician: AVEL : 1955 Age: 57 Sex: F Unit | | | #: [id number] Exam Date: 01/08/13 Location: | | | [facility] Report #: [id number] Page: | | | %(RAD)RES..mtdd.print.filter("pg") of %(RAD) | | | RES..mtdd.print.filter("tpg") | | | | | | Accession Number: [id number] | | | MRI LUMBAR SPINE CLINICAL [...] Transcribed Date/Time: 01/08/2013 17:54 | | | Site Medical Director: <<Signature on File>> | | | | | | Patrick Olivares MD01/09/13 8242 <Electronically signed by Patrick Cox | | | Marshall WINTERS> Patrick Olivares MD 01/08/13 8543 | | | Site Medical Director: Chelaile Ptoqdxzapakqy39/28/13 6371 | | | MD Trevor Blue MD | | + + + + + + + + | Performing | Address | City/State/Zipcode | Phone Number | | Organization | | | | + + + + + | [address] [facility] | [address] | [place] | [phone] | | [facility] | | [address] | | | - IMAGING | | | | + + + + + documented in this encounter Visit Diagnoses Not on filedocumented in this encounter
--- OUTSIDE RECORDS SUMMARY | ~2019-09-17 | XMS | Encounter Summary ---
Demographics + + + | Address | [address] [facility] [address] | | | [place] [address] | + + + | Home Phone [...] [facility] | | | and [place] | + + + | Organization | [facility] | | | and [place] [...] Providers + +------+ + | Care Medical Program Specialist Name | Role | Phone | + +------+ + | Teena Busch NP | PCP | | + +------+ + Reason for Visit +--------+--------+ + | Reason | Onset | Comments | | | Date | | +--------+--------+ + | Other | 02/18/ | | | | 2015 | | +--------+--------+ + Encounter Details +--------+ + + + + | Date | Type | Department | Care Team | Description | +--------+ + + + + | 02/18/ | Telephone | [facility] | Sundeep Ba PA | Other | | 2015 | | SLEEP DISORDER [address] | [address] | | | | | [address] [place] | [place], [place] | | | | | [place] [address] | [address] | | | | | [phone] | | | +--------+ + + + [...] Miscellaneous Notes Telephone Encounter - Ingris Su, Mica Layer - 02/19/2015 9:45 AM Gregg valenzuela lled back, She was notified regarding KIMI Talbot suggestions. Rx for pressure changes h ave been faxed to [facility] ([facility]). Luz Maria will give this a try and follow up [facility] KIMI Talbot at her next appointment. elephone Encounter - Ingris Su Mica Layer - 02/19/2015 9:36 AM PSTCalled unable to leave message no voicemail. elephone Encounter - Ra rene Su Mica Layer - 02/18/2015 11:48 AM Gregg called yesterday complaining of p ressure in her ears. She thinks her CPAP may be causing this. KIMI Talbot is out of the office till next week on . Told her I would check with him at that time but, recomme johnson she call her primary care physicians office [...]
--- OUTSIDE RECORDS SUMMARY | ~2019-09-17 | XMS | Encounter Summary ---
Demographics + + + | Address | [address] [facility] [address] | | | [place] [address] | + + + | Home Phone [...] | Author | [facility] | | | and [place] | + + + | Organization | [facility] | | | and [place] [...] Team Providers + +------+ + | Care Double End Trimmer Name | Role | Phone | + [...] Closed | | Radiology | Diagnoses | Mohr, | [facility] | | | | | Right knee | Leonidas Irving MD | [address] | | | | | pain | [address] | [place], | | | | | Swelling of | [address] | [place] | | | | | right knee | [place], | [address] | | | | | joint | [place] [address] | Phone: | | | | | Procedures | Phone: | [phone] | | | | | MRI Knee | [phone] | Fax: | | | | | Right wo | Fax: | [phone] | | | | | Contrast | [phone] | | +--------+--------+ + + + + Reason for Visit + + + | Reason | Comments | + + + | Neck Pain | | + + + Encounter Details +--------+---------+ + + + | Date | Type | Department | Care Team | Description | +--------+---------+ + + + | 12/02/ | Office | [facility] [place] | Leonidas Mohr, | Bilateral occipital | | 2015 | Visit | PHYSIATRY [address] | [address] | neuralgia (Primary | | | | [address] | [place], [place] | Dx); Chronic daily | | | | [place], [place] | [address] | headache; | | | | [address] | | Fibromyalgia; Right | | | | [phone] | | knee pain; Swelling | | [...] Instructions Patient Instructions Leonidas Mohr MD - 12/02/2014 11:28 AM PDTIt may be worth applying for ryan care at the hospital to see if [...] requested imaging. Within one week, you krista kevin receive a call to schedule your MRI. [...] nerve blocks can not be done by [facility] emergency department we will request Botox injections for chroni c daily headache. We may taper up Lyrica more in the future. documented in this encounter Progress Notes Leonidas Mohr MD - 12/02/2014 12:38 PM PDT [facility] PHYSIATRY [address] [facility] [id number] OFFICE NOTE LEONIDAS MOHR JR, MD Patient: LUZ MARIA LOCKWOOD Admitting: MR #: [id number] LOC: PT TYPE: Adm Date: 12/02/2014 : [...] headaches. She has been on gabape ntin mcc. She is not sure that it offers [...] and continues to give way on occasion. Juana campos reports that she can barely walk on [...] triceps, wrist dorsiflexion, finger abduction and hand special events director. DATABASE: No new imaging or laboratory data [...] to the ryan care department of our [facility] and request application for ryan care. We discussed that if she qualifies, hopefully we can provide this type of p rocedure for her through ryan from the hospital. We discussed that she may or may not q ualify for the our [facility] care. If she is approved for ryan care, we will plan to move for price with greater occipital nerve blocks through our [facility] care. If she cannot receive [facility] care, she will return to clinic in the future. We would then consider Botox chemodener vation of facial and neck innervated muscles under needle EMG guidance for the treatment of chronic daily headaches. She has been on gabapentin mcc. She does not believe it is helping. [...] her. If she cannot receive approval for [facility] emergency department, we will consider glen ating her chronic [...] MD Dictated by LEONIDAS MOHR JR, MD 12/02/2014 12:38:26 Transcribed on 12/02/2014 14:48:31 by viktoria job# [id number] Confirmation #: [id number] cc: WICHO STARKEY MD Leonidas Mohr MD - 12/02/2014 11:33 AM PDTThis office note has been dictated. Job ID# [id number] signed by Leonidas Mohr MD at 12/02/2014 12:38 PM PDTdocumented in [...] right knee swelling. COMPARISON: Right knee | . [facility] | | x-ray 12/04/2014. PROTOCOL: Axial proton density fat sat, sagittal | [facility]ICAL [facility]ENTER | | proton density, coronal proton [...] + | [facility] [facility] | [address] | [place] | [phone] | | [facility] | | [address] | | | - IMAGING | | [...] twisting knee, with right knee swelling | [facility] | | COMPARISON: None. FINDINGS:Frontal weightbearing views of both [facility] | | knees. A lateral view [...] + | [facility] | [address] | [place] | [phone] | | [facility] | | [address] | | | - IMAGING | | [...]
--- OUTSIDE RECORDS SUMMARY | ~2019-09-17 | XMS | Encounter Summary ---
Demographics + + + | Address | [address] [facility] [address] | | | [place] [address] | + + + | Home Phone [...] | Author | [facility] | | | and [place] | + + + | Organization | [facility] | | | and [...] Team Providers + +------+ + | Care Entry Level Web Developer Name | Role | Phone | + +------+ + | Abimael Devlin MD | PCP | | + +------+ + Reason for Visit +--------+--------+ + | Reason | Onset | Comments | | | Date | | +--------+--------+ + | Other | 12/16/ | | | | 2015 | | +--------+--------+ + Encounter Details +--------+ + + + + | Date | Type | Department | Care Team | Description | +--------+ + + + + | 12/16/ | Telephone | [facility] [place] | Leonidas Huddleston, | Other | | 2014 | | PHYSIATRY [address] | MD [address] | | | | | [address] | [place], [place] | | | | | [place], [place] | [address] | | | | | [address] | | | | | | [phone] | | | +--------+ + + + [...]
--- OUTSIDE RECORDS SUMMARY | ~2019-09-17 | XMS | Encounter Summary ---
Demographics + + + | Address | [address] [facility] [address] | | | [place] [address] | + + + | Home Phone | | + + + | Preferred Language | Unknown | + + + | Marital Status | | + + + | Buddhism Affiliation | 1013 | + + + | Race | Unknown | + + + | Ethnic Group | Unknown | + + + Author + + + | Author | [facility] | | | and [place] | + + + | Organization | [facility] | | | and [place] [...] Team Providers + +------+ + | Care Woods Rider Name | Role | Phone | + [...] | | | [address] [facility] | | | | | | [address] [place] | | | | | | [address] | | | | | | [phone] | | | +--------+ + + + [...]
--- OUTSIDE RECORDS SUMMARY | ~2019-09-17 | XMS | Encounter Summary ---
Demographics + + + | Address | [address] [facility] [address] | | | [place] [address] | + + + | Home Phone [...] + | Author | [facility] | | | and [place] | + + + | Organization | [facility] | [...] Team Providers + +------+ + | Care Marketing Instructor Name | Role | Phone | [...] [address] | [address] | | | | | [address] | [address] [place] | | | | | [place], [place] | [place] [address] | | | | | [address] | [phone] | | | | | [phone] | | | +--------+--------+ + + + [...]
--- OUTSIDE RECORDS SUMMARY | ~2019-09-17 | XMS | Encounter Summary ---
Demographics + + + | Address | [address] [facility] [address] | | | [place] [address] | + + + | Home Phone [...] | Author | [facility] | | | and [place] | + + + | Organization | [facility] | | [...] Team Providers + +------+ + | Care Wheel Alignment Mechanic Name | Role | Phone | + +------+ + PCP | Unavailable | + +------+ + Encounter Details +--------+ + + + + | Date | Type | Department | Care Team | Description | +--------+ + + + + | 06/15/ | Hospital | [facility] | Trevor Cárdenas MD | | | 2010 | Encounter | MED CTR XRAY [address] | [address] [facility] [facility] | | | | | [address] | [place] | | | | | [place] [address] | [address] | | | | | [phone] | | | +--------+ + + + [...] Performed At | + + + | [facility] | [place] | | [address] [facility] | [facility] | | E C H O C | DIAG IMG | | A R D I O G R A P H Y R E P O R T HEIGHT: 5'9" | | | WEIGHT: 240# INDUSTRIAL STAFF NURSE: VERONICA REFERRING PHYSICIAN: Dr. Murray | | [...] Signed by Brendan Swan, | | | > 06/19/10 1230 | | + + + + + | Procedure Note | + + | Ever Almazan - 04/20/2013 2:37 PM [facility] | | Diagnostic Imaging Department | | [address] [facility] | | | | | | | | | | | | E C H O C A R D I O G R A P H Y R E P O R T | | | | | | HEIGHT: 5'9" WEIGHT: 240# INDUSTRIAL STAFF NURSE: TD | | REFERRING PHYSICIAN: Dr. Trevor [...] FRANZ | | | | | [facility] IMG | | | | + +---------+ + + documented in this encounter Visit Diagnoses Not on filedocumented in this encounter
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
--- OUTSIDE RECORDS SUMMARY | ~2019-09-17 | XMS | Encounter Summary ---
Demographics + + + | Address | [address] [facility] [address] | | | [place] [address] | + + + | Home Phone [...] Author | [facility] | | | and [place] | + + + | Organization | [facility] | | | and [...] Team Providers + +------+ + | Care Foundry Worker Name | Role | Phone | [...] + + | 01/08/ | Office | [facility] | Leonidas Mohr, | Fibromyalgia | | 2016 | Visit | PHYSIATRY [address] | MD [address] | (Primary Dx); | | | | [address] | [place], [place] | Chronic daily | | | | [place], [place] | [address] | headache; Migraine | | | | [address] | | without aura and | | | | [phone] | | without status | | | [...] MD - 01/09/2016 12:52 PM PDT [facility] PHYSIATRY [address] [facility] [id number] OFFICE NOTE LEONIDAS MOHR JR, MD Patient: LUZ MARIA LOCKWOOD Admitting: MR #: [id number] LOC: PT TYPE: Adm Date: 01/09/2016 : [...] fibromyalgia pain was reduced when on Lyrica prevtalishau albertina. She denies any severe pain at this [...] 09/2015. She has not yet completed the [employer] work. CBC was also requested at the [...] 01/09/2016 12:52:20 Transcribed on 01/10/2016 09:17:55 by [facility] job# [id number] Confirmation #: [id number] cc: ABIMAEL DEVLIN MD Leonidas Mijares MD - 01/09/2016 12:40 PM PDTThis office note has been dictated. Report Confirmation# [id number] signed by Leonidas Mohr MD at 01/09/2016 [...]
--- OUTSIDE RECORDS SUMMARY | ~2019-09-17 | XMS | Encounter Summary ---
Demographics + + + | Address | [address] [facility] [address] | | | [place] [address] | + + + | Home Phone [...] Author | [facility] | | | and [place] | + + + | Organization | [facility] | | [...] Providers + +------+ + | Care Senior Associate Name | Role | Phone | + +------+ + | Wicho Starkey MD | PCP | | + +------+ + Reason for Visit +--------+--------+ + | Reason | Onset | Comments | | | Date | | +--------+--------+ + | Other | 09/03/ | | | | 2015 | | +--------+--------+ + Encounter Details +--------+ + + + + | Date | Type | Department | Care Team | Description | +--------+ + + + + | 09/03/ | Telephone | [facility] [place] | Leonidas Huddleston, | Other | | 2014 | | PHYSIATRY [address] | MD [address] | | | | | [address] | [place], [place] | | | | | [place], [place] | [address] | | | | | [address] | | | | | | [phone] | | | +--------+ + + + [...] Telephone Encounter - Charmaine Dangelo RN - 09/03/2014 9:53 AM PDTReferral sent. Xavier early signed by Charmaine Dangelo RN at 09/03/2014 9:53 AM PDTTelephone Encounter - Dat -Karin Frey - 09/03/2014 8:31 AM PDTLuz Maria called to schedule her PT, but [facility] did not have the referral yet. I see it authorized 08/23. Fax number for them is . document ed in this encounter Plan of Treatment Not on filedocumented as of this encounter Visit Diagnoses Not on filedocumented in this encounter"
--- OUTSIDE RECORDS SUMMARY | ~2019-09-17 | XMS | Encounter Summary ---
Demographics + + + | Address | [address] [facility] [address] | | | [place] [address] | + + + | Home Phone [...] | Author | [facility] | | | and [place] | + + + | Organization | [facility] | | | [...] Providers + +------+ + | Care Public Address Systems Mechanic Name | Role | Phone | [...] | SLEEP DISORDER [address] | [address] | | | | | [address] [place] | [place] | | | | | [place] [address] | [id number] | | | | | [phone] | | | +--------+ + + + [...] + documented as of this encounter Progress Sundeep Story PA - 11/26/2015 2:07 PM PDT"Alma Rosa" [...]
--- OUTSIDE RECORDS SUMMARY | ~2019-09-17 | XMS | Encounter Summary ---
Demographics + + + | Address | [address] [facility] [address] | | | [place] [address] | + + + | Home Phone [...] + | Author | [facility] | | | and [place] | + + + | Organization | [facility] | | [...] Team Providers + +------+ + | Care Melt House Drag Operator Name | Role | Phone | + +------+ + PCP | Unavailable | + +------+ + Encounter Details +--------+ + + + + | Date | Type | Department | Care Team | Description | +--------+ + + + + | 04/26/ | Hospital | [facility] GENER[facility] IP | Conversion | Pain | | 2013 | Encounter | CONVERSION DEP [address] | Transaction, | | | | | [address] | Provider Unknown | | | | | [place] | | | | | | [address] | (Fax) | | | | | [phone] | | | +--------+ + + + [...] | 0 | 08/20/19 | | | (BOBBI) 80 MG | morning, Two | | [...]
--- OUTSIDE RECORDS SUMMARY | ~2019-09-17 | XMS | Encounter Summary ---
Demographics + + + | Address | [address] [facility] [address] | | | [place] [address] | + + + | Home Phone [...] Author | [facility] | | | and [place] | + + + | Organization | [facility] | | [...] Team Providers + +------+ + | Care Feather Cutting Machine Feeder Name | Role | Phone [...] Medicine | Obstructive | Andre Arnold | [place] [address] [address] | | | Required | | sleep apnea | MD David Montoya | Justa | | | | | (adult) | [place] | [place], | | | | | (pediatric) | [place] | [place] [address] | | | | | Bipolar I | [place], [place] | Phone: | | | | | disorder, | [address] | [phone] | | | | | most recent | Phone: | Fax: | | | | | episode (or | [phone] | [phone] | | | | | current) | Fax: | | | | | | unspecified | [phone] | | | | | | Type [...] | | | | | | Having [address] | | | | | | | not [address] | | | +--------+ + + + [...] | | | | | Snoring | [address] | [address] [place] | | | | | Apnea | [place], | [place], | | | | | | [place] [address] | [place] [address] | | | | | | Phone: | Phone: | | | | | | [phone] | [phone] | | | | | | Fax: | Fax: | | | | | | [phone] | [phone] | +--------+ + + + + + Encounter Details +--------+---------+ + + + | Date | Type | Department | Care Team | Description | +--------+---------+ + + + | 10/07/ | Office | [facility] | Andre Ugarte | CONSUELO (obstructive | | 2015 | Visit | SLEEP DISORDER [address] | MD Jan [address] | sleep apnea) | | | | [address] [place] | [address] [facility] | (Primary Dx); | | | | [place] [address] | [place] [address] | Bipolar 1 disorder | | | | [phone] | [phone] | ([facility]); Fibromyalgia; | | | | | | Diabetes mellitus | | | | | | ([facility]); Essential | | | | | | [...] the night, making your sleep fragmentedwith a certified technician stage of sleep. Even though you do not remember waking up many times during the night to a certified technician sleep, you fee l tired the next [...] block the airway when you re asleep. [id number] [employer]. [address] [place] [address]. All righ ts reserved. This information is [...] types of CPAP. Your doctor or CPAP ct technician will help you decide whic h [...] as body position, sleep stage, and snoring. 8521-4404 [employer]. [address] [place] [address], [place] [address]. All righ ts reserved. This information is [...] get used to wearing the mask at [facility]. Practice using your CPAP device during [...] may recommend moistening nasal spray or the [employer] may recommend a d evice with a [...] Try using extra pillows. Work with your [employer] supply company so that you know how to correctly use your CPAP. [facility] telephone claims representative will be able to help you: Use the CPAP correctly Troubleshoot any problems that come up Learn to clean and maintain the device Adjust to regular use of the CPAP [id number] [employer]. [address] [place] [address], [place] [address]. All [facility] ts reserved. This information is not intended as a substitute for professional medical care. Always follow your healthcare professional's instructions. documented in this encounter Progress Notes Andre Ugarte Jr., MD - 10/07/2014 2:32 PM PDTFormatting of this note might be differen t from the original. [facility] [place] [address] Ref: Leonidas Huddleston MD CC: Chief Complaint Patient presents with Consult Snoring History of the Present Illness:This is a 59 year old female who is referred for sleep medic ine consultation by Dr. Leonidas Huddleston because of possible CONSUELO. Other significant medical iss ues include chronic pain, Anxiety-Depression, Asthma, ASCVD (history of NC), HBP, AODM. The patient's records ([facility] EMR) are reviewed. The patient [...] Concern None Social History Narrative Lives in [place] in apartment. Review of Systems: Constitutional: Denies [...]
--- OUTSIDE RECORDS SUMMARY | ~2019-09-17 | XMS | Encounter Summary ---
Demographics + + + | Address | [address] [facility] [address] | | | [place] [address] | + + + | Home Phone [...] | Author | [facility] | | | and [place] | + + + | Organization | [facility] | | | [...] Providers + +------+ + | Care Seasonal Sales Associate Name | Role | Phone | + +------+ + | Abimael Devlin MD | PCP | | + +------+ + Reason for Visit +--------+--------+ + | Reason | Onset | Comments | | | Date | | +--------+--------+ + | Other | 10/01/ | | | | 2017 | | +--------+--------+ + Encounter Details +--------+ + + + + | Date | Type | Department | Care Team | Description | +--------+ + + + + | 10/01/ | Telephone | [facility] | Patrick England MD | Other | | 2016 | | GASTROENTEROLOGY | [address], [place] | | | | | [address] [place] | [address] [place], [place] | | | | | [address] [place], [place] | [address] | | | | | [address] | | | | | | [phone] | | | +--------+ + + + [...] RN - 10/01/2016 10:57 AM PDTPatient calls anastasiakavita ng a different bowel prep ordered. Suprep not covered by Medicaid GoLYTELY ordered for her at right aid in [place] 10:5 7 AM PDTdocumented in this encounter Plan of Treatment Not on filedocumented as of this encounter Visit Diagnoses Not on filedocumented in this encounter"
--- OUTSIDE RECORDS SUMMARY | ~2019-09-17 | XMS | Encounter Summary ---
Demographics + + + | Address | [address] [facility] [address] | | | [place] [address] | + + + | Home Phone [...] | [facility] | | | and [place] | + + + | Organization | [facility]ated [facility] | [...] Team Providers + +------+ + | Care Cooker Meal Name | Role | Phone | + +------+ + | Abimael Devlin MD | PCP | | + +------+ + Encounter Details +--------+ + + + + | Date | Type | Department | Care Team | Description | +--------+ + + + + | 10/17/ | [facility] | [facility] | Andre Caballero | Right hip pain | | 2018 | Encounter | [facility] | MD Rojelio [address] [facility] | | | | | [address] [place] | [place] | | | | | [place] | [address] | | | | | [address] | | | | | | [phone] | | | +--------+ + + + [...] | dicyclomine | | | 0 | 20 | | | (BENTYL) 10 mg | [...]
--- OUTSIDE RECORDS SUMMARY | ~2019-09-17 | XMS | Encounter Summary ---
Demographics + + + | Address | [address] [facility] [address] | | | [place] [address] | + + + | Home Phone [...] Author | [facility] | | | and [place] | + + + | Organization | [facility] | [...] Providers + +------+ + | Care Manager Secondary Name | Role | Phone | + [...] | | | | | Snoring | [address] | [address] | | | | | Apnea | [place], | [place], | | | | | | [place] [address] | [place] [address] | | | | | | Phone: | Phone: | | | | | | [phone] | [phone] | | | | | | Fax: | Fax: | | | | | | [phone] | [phone] | +--------+ + + + + + [...] | | | | | cervical | [address] | | | | | | region | [place], | | | | | | Cervical | [place] [address] | | | | | | spondylosis | Phone: | | | | | | Cervicalgia | [phone] | | | | | | Status | Fax: | | | | | | post | [phone] | | | | | | cervical [...] | | | [place] | [place] [address] | | | | | | [place] | Phone: | | | | | | [address] | [phone] | | | | | | Phone: | Fax: | | | | | | [phone] | [phone] | | | | | | Fax: | | | | | | | [phone] | | +--------+--------+ + + + + Encounter Details +--------+---------+ + + + | Date | Type | Department | Care Team | Description | +--------+---------+ + + + | 08/21/ | Office | [facility] [place] | Leonidas Mohr, | Cervicalgia (Primary | | 2015 | Visit | PHYSIATRY [address] | MD [address] | Dx); Cervical | | | | [address] | [place] | spondylosis; | | | | [place] | [address] | Cervical spinal | | | | [address] | | stenosis; Status | | | | [phone] | | post cervical spinal | | [...] physical therapy within one week, please contact [facility]. Once you have completed physical [...] MD - 08/21/2014 5:21 PM PDT [facility] [place] [facility]SI[facility] [address] [facility] [address] OFFICE NOTE LEONIDAS MOHR JR, MD Patient: LUZ MARIA LOCKWOOD Admitting: MR #: [id number] LOC: PT TYPE: Adm Date: 08/21/2014 : [...] of vitamin D deficiency. She reports that sh e supplements with vitamin D. She denies [...] triceps, wrist dorsiflexion, finger abduction and hand shear assembler; 4+/5 hip flexion, knee flexion, knee extension, [...] 17:21:09 Transcribed on 08/22/2014 01:15:33 by job# [id number] Confirmation #: [id number] cc: WICHO STARKEY MD Leonidas Mohr MD - 08/21/2014 1:53 PM PDTThis office note has been dictated. Job ID# [id number] signed by Leonidas Mohr MD at 08/21/2014 [...] + + | * [facility] | Outpatient | Routin | Fibromyalgia | [...]
--- OUTSIDE RECORDS SUMMARY | ~2019-09-17 | XMS | Encounter Summary ---
Demographics + + + | Address | [address] [facility] [address] | | | [place] [address] | + + + | Home Phone [...] + | Author | [facility] | | | and [place] | + + + | Organization | [facility] [...] Team Providers + +------+ + | Care Qa Test Lead Name | Role | Phone | + [...] | | | | [address] | [place] [address] | (non-ST elevated | | 11/11/ | | [place], [place] | [phone] | myocardial | | 2011 | | [address] | | infarction) ([facility]); | | | | [phone] | | Hyponatremia; | | | | | | Bipolar disorder, | | | | | | unspecified ([facility]); | | | | | | Hyposmolality and/or | | | | | | hyponatremia; | | | | | | Leucocytosis; | | | | | | Paranoid | | | | | | schizophrenia, | | | | | | chronic condition | | | | | | ([facility]); Seizure | | | | | | disorder ([facility]) | +--------+ + + + + Social [...] (none) Author Type: Registered Nurse Filed: 11/12/11 1308 Date of Service: 11/12/11 1306 Status: Signed Core Rescuer: Marli Mejia RN (Registered Nurse) Pt provided [...] Summaries by Rhoda Simpson MD at 11/12/11 9389 Author: Rhoda Simpson MD Service: (none) Author Type: Physician Filed: 11/18/11 0927 Date of Service: 11/12/11 7001 Status: Signed Core Rescuer: Rhoda Simpson MD (Physician) [facility] Service: Hospitalist Discharge Summary Date of Admission: [...] methamphetami ne use, who was transferred from [facility] after having a seizure. Please refer t o complete H&P by Dr Singleton for further details. HOSPITAL COURSE: Patient was admitted after snorting meth about 4 hours [employer]AN [employer] STUD[employer]. Patient reportedly had sei zures and palpitations [...] 11/12/2011 EGFR >60 11/12/2011 PLAN D/C to intermediate. Disposition: jail Condition: Stable Code Status: Full Code Discharge [...] disc harge summary. Rhoda Simpson MD 11/12/2011 Anabelle min in this encounter Medications at Time [...] 11/12/111341 Date of Service: 11/12/111339 Status: Signed Core Rescuer: Marli Mejia RN (Registered Nurse) Security brought pt belongings up to pt. jail called and they have her set of keys. P t notified. Harriett Murray MSW - 11/12/2011 1:01 PM PDT Progress Notes by BERNARD Hugo at 11/12/11 1301 Author: BERNARD Hugo Service: (none) Author Type: Manager Sterile Filed: 11/12/11 1303 Date of Service: 11/12/11 130 Status: Signed Core Rescuer: BERNARD Hugo (Manager Sterile) Patient reports she lives in a intermediate, has [place] medicaid for transportation. Pt disc harging back to intermediate this afternoon. CM [facility] provided pt room # address and this CM's contact number. Retail Maintenance Technician stated they would send transport as soon as they could find someone. CM alerted RN of dcp approxim ate time. No other anticipated dc needs at this time. onversion Transact ion, Provider Unknown - 11/12/2011 9:57 AM PDTFormatting of this note might be different fr om the original. Progress Notes by Melissa Estrella at 11/12/11956 Author: Melissa Estrella Service: (none) Author Type: Financial Institution Manager Filed: 11/12/1159 Date of Service: 11/12/11956 Status: Signed Core Rescuer: Melissa Estrella (Financial Institution Manager) Pt didn't remember requesting a visit. Wanted prayer for her health. Shared she has difficu lty forgiving herself. Wants additional battery plate remover visits while she is in the hospital. [place] Transaction, Provider Unknown - 11/11/2011 4:26 AM PDT Progress Notes by Gelacio Bhandari RPH at 11/11/11425 Author: Gelacio Bhandari RPH Service: (none) Author Type: Pharmacist Filed: 11/11/11425 Date of Service: 11/11/11425 Status: Signed Core Rescuer: Gelacio Bhandari RPH (Pharmacist) Note ccl 115ml/min meds reviewed Pharmacy will follow rdc 0426 docume nted in this encounter H&P Notes Jaxon Singleton MD - 11/11/2011 3:53 AM PDTFormatting of this note might be different from th e original. H&P by Jaxon Singleton MD at 11/11/11352 Author: Jaxon Singleton MD Service: (none) Author Type: Physician Filed: 11/11/11400 Date of Service: 11/11/11352 Status: Signed Core Rescuer: Jaxon Singleton MD (Physician) Related Notes: Original Note by Jaxon Singleton MD (Physician) filed at 11/11/[address] [facility] Service: Hospitalist Admission History & Physical Pt: Luz Maria Lockwood AGE/SEX: 56 y.o. female ROOM: PCP: PER PT NONE : 1955 TODAY'S DATE: 11/11/2011 Date of Admission: 11/11/2011 Chief Complaint: Seizure History of Present Illness: *The patient is a 56-year-old female with a past medical history of paranoid schizophrenia, bipolar disorder, seizure disorder, diabetes, hypertension, and chronic methamphetamine use, who was transferred from [facility] after having a seizure. The patient reportedly, at 12 p.m. today, did methamphetamine with her friend and after that EMS was called because the patient was found to be having seizures. It is unclear if the patient actually had a real seizure, but she was given Ativan and was transferred to [facility]. There, at least per the records from [facility], she was witnessed to have a [...] 0.1 and the patient was transferred to [facility] for hyponatremia and for positive troponin levels. [...] takes lamotrigine for that and follows at [facility] from [place], follows her for psychiatric disorders, and she [...] father at the age of 56, an ND. CURRENT MEDICATIONS Medications that the patient remembers [...] 11/12/11909 Date of Service: 11/12/11908 Status: Signed Core Rescuer: ANDRIY Suazo (Advanced Registered Nurse Practitioner) Procedures: 1. NM CARDIOVASCULAR STRESS TEST [[id number] (Custom)] [facility] Service: Diagnostic Imaging/Nuclear Medicine Cardiac Stress Test [...] 11/11/11327 Date of Service: 11/11/11327 Status: Signed Core Rescuer: Francisco Tejada RN (Registered Nurse) Dr Singleton at bedside with pt. Francisco Tejada RN 11/11/11327 [place] [place] Transaction, Provider Unknown - 11/11/2011 3:28 AM PDT ED Notes by Jesse Melendez RN at 11/11/11327 Author: Jesse Melendez RN Service: (none) Author Type: Registered Nurse Filed: 11/11/11327 Date of Service: 11/11/11327 Status: Signed Core Rescuer: Jesse Melendez RN (Registered Nurse) Hospitalist at bedside. Report to Francisco NOVA. Jesse Melendez RN 11/11/11327 [place] Transaction, Provider Unknown - 11/11/2011 2:45 AM PDT ED Notes by Jesse Melendez RN at 11/11/11244 Author: Jesse Melendez RN Service: (none) Author Type: Registered Nurse Filed: 11/11/11244 Date of Service: 11/11/11244 Status: Signed Core Rescuer: Jesse Melendez RN (Registered Nurse) Dr. Collins at bedside. Jesse Melendez RN 11/11/11244 [place] Transaction, Provider Unknown - 11/11/2011 1:37 AM PDT ED Notes by Francisco Tejada RN at 11/11/11136 Author: Francisco Tejada RN Service: (none) Author Type: Registered Nurse Filed: 11/11/11137 Date of Service: 11/11/11136 Status: Signed Core Rescuer: Francisco Tejada RN (Registered Nurse) Pt states symptoms started yesterday "when I did some bad meth" Francisco Tejada RN 11/11/11137 [place] Transaction, Provider Unknown - 11/11/2011 1:36 AM PDT ED Notes by Francisco Tejada RN at 11/11/11135 Author: Francisco Tejada RN Service: (none) Author Type: Registered Nurse Filed: 11/11/11135 Date of Service: 11/11/11135 Status: Signed Core Rescuer: Francisco Tejada RN (Registered Nurse) Patient placed on telemetry, with Sa02 and routine NIBP monitoring. Telemetry floor notifie d via telephone. Francisco Tejada RN 11/11/11135 [place] Transaction, Provider Unknown - 11/11/2011 1:35 AM PDT ED Notes by Francisco Tejada RN at 11/11/11134 Author: Francisco Tejada RN Service: (none) Author Type: Registered Nurse Filed: 11/11/11134 Date of Service: 11/11/11134 Status: Signed Core Rescuer: Francisco Tejada RN (Registered Nurse) Dr Collins at bedside with pt. Francisco Tejada RN 11/11/11134 [place] Transaction, Provider Unknown - 11/11/2011 1:35 AM PDT ED Notes by Francisco Tejada RN at 11/11/11134 Author: Francisco Tejada RN Service: (none) Author Type: Registered Nurse Filed: 11/11/11134 Date of Service: 11/11/11134 Status: Signed Core Rescuer: Francisco Tejada RN (Registered Nurse) BC x2 collected at [facility] ED in [place]. Francisco Tejada RN 11/11/11134 dmond wells, Dar Yun MD - 11/11/2011 1:32 AM PDT ED Provider Notes by Dar Collins MD at 11/11/11131 Author: Dar Collins MD Service: (none) Author Type: Physician Filed: 11/11/11 0437 Date of Service: 11/11/11131 Status: Signed Core Rescuer: Dar Collins MD (Physician) [facility] Department of Emergency Medicine Pertinent History and [...] Patient presented to the Emergency Department by: [place] [facility] Chief Complaint Chief Complaint Patient presents with Altered Mental Status Pt seen at [facility] ED for Tremors, hypokalemia, elevated troponin, and [...] hours ago. The pt was seen at [facility] in [facility] for convulsions. The pt was transported to [facility] by ambulance and diagnosed with p aranoid [...] sore throat CV/Resp: Negative for chest pain, dieokgztn-at-njhxmv, cough Positive for tachycardia GI: Negative for [...] possible lab error, and non ST elevation ND. I will order tests to rule out [...] elevation. Records Reviewed Nursing notes. No previous [facility] ED visits for review in Epic. The pt has had back surgery x3 and a cholecystectomy. Laboratory Evaluation Results Procedure Component Value Ref Range Date/Time [facility] Cardiac Panel ([facility] Only) [[id number]] (Abnormal) Collected:11/11/11143 Order Status:Completed Updated:11/11/11221 WBC 17.0 [...] from 2:42: Sinus tachycardia at 101 bpm. FL, QRS, QT, and axis are normal. No [...] 11/11/11128 Date of Service: 11/11/11128 Status: Signed Core Rescuer: Eli To RN (Registered Nurse) Bed:13
Expected date:
Expected time:
Means of arrival:
Comments:
[facility] [place] [place] Transaction, Provider Unknown - 11/11/2011 12:38 AM PDT ED Notes by Eli To RN at 11/11/1137 Author: Eli To RN Service: (none) Author Type: Registered Nurse Filed: 11/11/1142 Date of Service: 11/11/1137 Status: Signed Core Rescuer: Eli To RN (Registered Nurse) Report from Heather at [facility]. Pt in a intermediate. Did meth yesterday. EMS called fo r [...] set of dirty clothes. Eli To RN 11/11/1142 docume nted in this encounter Plan of [...] + + documented in this encounter Results DE Myocardial Perfusion Mult SPECT (11/12/2011 9:59 AM PDT) + + | Specimen | + + | | + + + + + | Narrative | Performed At | + + + | LUZ MARIA LOCKWOOD DE MYOCARDIAL PERFUSION SPECT - STRESS AND REST [...] Almazan Conversion - 11/04/2018 6:12 AM PDT LUZ MARIA Rojelio [facility] | | PERFUSION SPECT - STRESS [...] + | This procedure was resulted in [place] (the cardiology system). Please | | | see the Media tab in Chart Review to see the result for this | | | procedure. | | + + + + + | Procedure Note | + + | Ever Almazan Conversion - 11/04/2018 6:12 AM PDT This procedure was resulted in [facility] | | (the cardiology system). Please seethe [...] - 11/04/2018 6:12 AM PDT LUZ MARIA LOCKWOODXR CHEST 1 | | VIEW11/11/2011 5:40 AM [...] | + + | Bipolar disorder, unspecified ([facility]) Bipolar disorder, unspecified | + + | Hyposmolality and/or hyponatremia | + + | Leucocytosis Leukocytosis, unspecified | + + | Paranoid schizophrenia, chronic condition (HCC) Paranoid schizophrenia, chronic | | condition | + + | Seizure disorder (HCC) Unspecified epilepsy without mention of intractable epilepsy | + + documented in this encounter
--- OUTSIDE RECORDS SUMMARY | ~2019-09-17 | XMS | Encounter Summary ---
Demographics + + + | Address | [address] [facility] [address] | | | [place] [address] | + + + | Home Phone [...] + | Author | [facility] | | | and [place] | + + + | Organization | [facility] | | [...] Team Providers + +------+ + | Care Workers Compensation Manager Name | Role | Phone | [...] + | 01/12/ | Telephone | [facility] [place] | Leonidas Huddleston, | Other | | 2015 | | PHYSIATRY [address] | [address] | (Pharmacy/Medication | | | | [address] | [place] | verification) | | | | [place] | [id number] | | | | | [phone] | | | | | | [phone] | | | +--------+ + + + [...] her preferred Pharmacy is: [facility] - [place] - [address] [facility] ([phone]). Called patient's preferred Pharmacy. Spoke with Pharmacist: [...] daily Authorizing Provider: Leonidas Huddleston MIGUEL ANGEL: [id number] Loyd verbalized understanding. Called [facility] ([facility] [address] [address]; ) and spoke with Angela. She was [...]
--- OUTSIDE RECORDS SUMMARY | ~2019-09-17 | XMS | Encounter Summary ---
Demographics + + + | Address | [address] [facility] [address] | | | [place] [address] | + + + | Home Phone [...] | Author | [facility] | | | and [place] | + + + | Organization | [facility] | [...] Team Providers + +------+ + | Care Welt Edge Rounder Name | Role | Phone | + +------+ + | Wicho Starkey MD | PCP | | + +------+ + Encounter Details +--------+ + + + + | Date | Type | Department | Care Team | Description | +--------+ + + + + | 12/04/ | Hospital | [facility] | Leonidas Huddleston, | Right knee pain; | | 2014 | Encounter | MED CTR XRAY [address] | [address] | Swelling of right | | | | [place] | [place], [place] | knee joint | | | | [place] [address] | [address] | | | | | [phone] | | | +--------+ + + + [...] COMPARISON: None. FINDINGS:Frontal weightbearing views of both [facility] | | knees. A lateral view [...] + + | [address] | [address] | [place] | [phone] | | [facility] | | [address] | | | - IMAGING | | [...]
--- OUTSIDE RECORDS SUMMARY | ~2019-09-17 | XMS | Encounter Summary ---
Demographics + + + | Address | [address] [facility] | | | [place] [address] | + + + | Home Phone | | + + + | Preferred Language | Unknown | + + + | Marital Status | | + + + | Congregation Affiliation | 1013 | + + + | Race | Unknown | + + + | Ethnic Group | Unknown | + + + Author + + + | Author | [facility] | | | and [place] | + + + | Organization | [facility] | | [...] Team Providers + +------+ + | Care Application Systems Architect Name | Role | Phone | [...] | 02/11/ | Office | [facility] | Sundeep Ba PA | CONSUELO on CPAP (Primary | | 2015 | Visit | SLEEP DISORDER [address] | [address] | Dx) | | | | [address] [place] | [place] | | | | | [place] [address] | [address] | | | | | [phone] | | | +--------+---------+ + + + [...] AirSense 10 with nasal mask obtained from: [employer] in [place] pressure: 9-20 cm Median: 12.4 cm 95%: [...] Exam Assessment: Problem #1: OBSTRUCTIVE SLEEP APNEA ([id number]-U01.33) She has struggled with wearing her CPAP [...] month, sooner prn. Thirty minutes were spent sjca-pq-brdn, wit h the majority of time spent in counseling. Sundeep Ba PA-C cc: Teena Busch, CIGAR SORTER-DARRYN documented in this enco unter Plan of Treatment Not on filedocumented as of this encounter Visit Diagnoses + + | Diagnosis | + + | CONSUELO on CPAP - Primary Obstructive sleep apnea (adult) (pediatric) | + + documented in this encounter
--- OUTSIDE RECORDS SUMMARY | ~2019-09-17 | XMS | Encounter Summary ---
Demographics + + + | Address | [address] [facility] | | | [place] [address] | + + + | Home Phone [...] | Author | [facility] | | | and [place] | + + + | Organization | [facility] [...] Providers + +------+ + | Care Blanker Press Operator Name | Role | Phone [...] + | 03/10/ | Telephone | [facility] | Sundeep Ba PA | Apnea | | 2014 | | SLEEP DISORDER [address] | [address] | | | | | [address] [place] | [place], [place] | | | | | [place] [address] | [address] | | | | | [phone] | | | +--------+ + + + [...] part of her sleep r outine. Sundeep Ba, PA documente d in this encounter Plan of Treatment Not on filedocumented as of this encounter Visit Diagnoses Not on filedocumented in this encounter"
--- OUTSIDE RECORDS SUMMARY | ~2019-09-17 | XMS | Encounter Summary ---
Demographics + + + | Address | [address] [facility] | | | [place] [address] | + + + | Home Phone [...] + | Author | [facility] | | | and [place] | + + + | Organization | [facility] | | | and [...] Providers + +------+ + | Care Loan Analyst Name | Role | Phone | [...] PHYSIATRY [address] | MD [address] | | | | | [address] | [place], [place] | | | | | [place] | [address] | | | | | [address] | | | | | | [phone] | | | +--------+--------+ + + + [...] RN - 11/25/2015 2:48 PM PDTCalled [facility]: [facility] - [place] - [address] [facility] (Pharmacy) and asked about patient's Lyrica. Pharmacy staff states that a prior auth was needed. She was informed that the fax wasn't re ceived, a request for form to be re-faxed has been sent, and fax number given ([phone]) . Called Luz Maria Carmona and she [...]
--- OUTSIDE RECORDS SUMMARY | ~2019-09-17 | XMS | Encounter Summary ---
Demographics + + + | Address | [address] [facility] | | | [place] [address] | + + + | Home Phone [...] | Author | [facility] | | | and [place] | + + + | Organization | [facility] | [...] Team Providers + +------+ + | Care Drag Seiner Name | Role | Phone | + [...] | | [address] | [place] [address] | | | | | [place] [address] | | | | | | [phone] | | | +--------+ + + + [...]
--- OUTSIDE RECORDS SUMMARY | ~2019-09-17 | XMS | Encounter Summary ---
Demographics + + + | Address | [address] [facility] | | | [place] [address] | + + + | Home Phone [...] | Author | [facility] | | | and [place] | + + + | Organization | [facility] | | | and [...] Providers + +------+ + | Care Human Resources Mgr Name | Role | Phone | [...] | SLEEP DISORDER [address] | [address] | Dx) | | | | [address] [place] | [place] | | | | | [place] [address] | [address] | | | | | [phone] | | | +--------+---------+ + + + [...] in this encounter Progress Notes Earnestine Haley, Scrap Metal Collector - 07/28/2017 2:00 PM PDTFormatting of this note josep campos different from the original. 07/28/17 1300 Tilley Depression Inventory-II Depression Score 34 - Severe depression Insomnia Severity Index Insomnia Severity Index 24 Monument Sleepiness Scale Sitting and reading 2 Watching [...] 21.35 MH 24.71 PCS 39.29 MCS 21.51 Comiryam, MINOO Cole - 2:00 PM PDT Subjective: Patient ID: Luz Maria Carmona is a 62 y.o. female. HPI last office visit was: 12/04/2015 date of split-night polysomnography: 12/03/2014 AHI: 62.1 RDI: 69.2 O2%: 74% with 27.0 minutes below 88% Machine type: ResMed AirSense 10 with nasal mask obtained from: [employer] in [place] pressure: 9-20 cm (lowered to 4-8 cm [...] Exam Assessment: Problem #1: OBSTRUCTIVE SLEEP APNEA (QRO76-L05.33) This is controlled with CPAP, but she hasn't used it in the last year. Plan: 1. She is to continue with CPAP indefinitely. 2. She is to work toward wearing her CPAP 100% of the time she is asleep. I will follow up again in 1 month, sooner prn. Fifteen minutes were spent hoci-kh-yaiu, wi th the majority of time spent [...]
--- OUTSIDE RECORDS SUMMARY | ~2019-09-17 | XMS | Encounter Summary ---
Demographics + + + | Address | [address] [facility] | | | [place] [address] | + + + | Home Phone [...] | Author | [facility] | | | and [place] | + + + | Organization | [facility] | | [...] Team Providers + +------+ + | Care Core Finisher Name | Role | Phone | + [...] + + | 01/28/ | [facility] | [facility] | Andre Ugarte | CONSUELO (obstructive | | 2015 | Visit | SLEEP DISORDER [address] | MD Jan [address] | sleep apnea) | | | | [address] [place] | [address] [place] | (Primary Dx) | | | | [place] [address] | [place] [address] | | | | | [phone] | [phone] | | | | | | | [...] get used to wearing the mask at [facility]. Practice using your CPAP device during the [...] lessen these problems. For example, your p kacider may recommend moistening nasal spray or the medical supply [employer] may recommend a d evice with a [...] to correctly use your CPAP. The r claim representative will be able to help you: Use the CPAP correctly Troubleshoot any problems that come up Learn to clean and maintain the device Adjust to regular use of the CPAP [id number] [employer]. [address] [place] [address], [place] [address]. All righ ts reserved. This information is [...] Polysomnography under "Media" se ction in the [employer] EMR. Definitions (The AASM Manual for the [...]
--- OUTSIDE RECORDS SUMMARY | ~2019-09-17 | XMS | Encounter Summary ---
Demographics + + + | Address | [address] [facility] | | | [place] [address] | + + + | Home Phone [...] Author | [facility] | | | and [place] | + + + | Organization | [facility] | [...] Team Providers + +------+ + | Care Drop Hammer Operator Helper Name | Role | Phone [...] + + | 12/03/ | Telephone | [facility] | Leonidas Huddleston, | Medication Prior | | 2016 | | PHYSIATRY [address] | [address] | Authorization | | | | [address] | [place], [place] | | | | | [place], [place] | [address] | | | | | [address] | | | | | | [phone] | | | +--------+ + + + [...] Telephone Encounter - Ciara Varela RN - 12/15/2015 2:27 PM PDTCalled Nancynadege ribeiro Fidelina Carmona to inform her that the PA form has been received, completed, and faxed to [facility] [employer] ([place]: [phone]). Patient verbalized understanding. Xavier early signed by Ciara Varela RN at 12/15/2015 2:31 PM PDTTelephone Encounte r - Ciara Varela RN - 12/11/2015 3:12 PM PDTCalled Luz Maria Fidelina Carmona to f/u on her current Lyrica intake, and to inform her that the prior authorization request fro pharmacy has been received. Patient unavailable. [facility] Called [facility] ([phone]) and asked for PA form to be [...] from er pharmacy. She verbalized understanding. [facility] in [place], [place] and spoke with Stephania, Linux Support Engineer, and requested th e prior auth form to be faxed to our office. Fax number ([phone]) was given. She verbal ized understanding. Once PA form received, patient will be contacted to update her. documented in this encounter Plan of Treatment Not on filedocumented as of this encounter Visit Diagnoses Not on filedocumented in this encounter"
--- OUTSIDE RECORDS SUMMARY | ~2019-09-17 | XMS | Encounter Summary ---
Demographics + + + | Address | [address] [facility] [address] | | | [place] [address] | + + + | Home Phone [...] Author | [facility] | | | and [place] | + + + | Organization | [facility] | [...] Providers + +------+ + | Care Auto Body Repair Estimator Name | Role | Phone | + [...] 2017 | | GASTROENTEROLOGY | [address] [place] | screen ) | | | | [address] [place] | [address] [place], [place] | | | | | [address] [place], [place] | [address] | | | | | [address] | | | | | | [phone] | | | +--------+ + + + [...] bowel prep; rx t o [facility]; info mailed to pt; completed case request [...]
--- OUTSIDE RECORDS SUMMARY | ~2019-09-17 | XMS | Encounter Summary ---
Demographics + + + | Address | [address] [facility] | | | [place] [address] | + + + | Home Phone [...] + + | Author | [facility] | | | and [place] | + + + | Organization | [facility] | | [...] Providers + +------+ + | Care Sales Coordinator Name | Role | Phone | [...] + + | 04/14/ | Office | [facility] | Sundeep Ba PA | CONSUELO on CPAP (Primary | | 2016 | Visit | SLEEP DISORDER [address] | [address] | Dx) | | | | [address] [place] | [place] | | | | | [place] [address] | [address] | | | | | [phone] | | | +--------+---------+ + + + [...] AirSense 10 with nasal mask obtained from: [employer] in [place] pressure: 9-20 cm (lowered to 4-8 cm [...] Exam Assessment: Problem #1: OBSTRUCTIVE SLEEP APNEA (HOJ26-Q44.33) This is controlled with CPAP. She has [...]
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
--- OUTSIDE RECORDS SUMMARY | ~2019-09-17 | XMS | Encounter Summary ---
Demographics + + + | Address | [address] [facility] [address] | | | [place] [address] | + + + | Home Phone [...] | Author | [facility] | | | and [place] | + + + | Organization | [facility] | | | and [place] [...] Team Providers + +------+ + | Care Housekeeper Home Name | Role | Phone | + [...] | | | | | positional | [address] | [address] | | | | | vertigo | [place], | [address] | | | | | Procedures | [place] [address] | [address] | | | | | 10/25 PEND | Phone: | [place], | | | | | [place] | [phone] | [place] [address] | | | | | | Fax: | Phone: | | | | | | [phone] | [phone] | | | | | | | Fax: | | | | | | | [phone] | +--------+ + + + + + Encounter Details +--------+---------+ + + + | Date | Type | Department | Care Team | Description | +--------+---------+ + + + | 11/27/ | Office | [facility] | Leonidas Huddleston, | Dizziness and | | 2014 | Visit | AUDIOLOGY AND | [address] | giddjimenez (Primary | | | | [facility] | [place], [place] | Dx) | | | | [address] | [address] | | | | | [address] [facility] | | | | | | [place] [address] | [place], [place], [place] | | | | | [phone] | CCC-A [address] | | | | | [address] [facility] | | | | | | [place] [address] | | | | | | [phone] | | | | | | | [...] as of this encounter Progress Notes Nigel Andersen MS CCC-A - 11/27/2014 3:09 PM PDTReferring [...] and Recommendation: Dizziness. Follow-up care with Dr. Flaquito Sr. Thank you. documented in thi s [...]
--- OUTSIDE RECORDS SUMMARY | ~2019-09-17 | XMS | Encounter Summary ---
Demographics + + + | Address | [address] [facility] [address] | | | [place] [address] | + + + | Home Phone [...] + | Author | [facility] | | | and [place] | + + + | Organization | [facility] | | | and [...] Team Providers + +------+ + | Care Choral Teacher Name | Role | Phone | [...] + + | 12/03/ | Office | [facility] | Sundeep Ba PA | CONSUELO on CPAP (Primary | | 2016 | Visit | SLEEP DISORDER 401 | [address] | Dx) | | | | [address] [place] | [place] | | | | | [place] [address] | [address] | | | | | [phone] | | | +--------+---------+ + + + [...] AirSense 10 with nasal mask obtained from: [employer] in [place] pressure: 9-20 cm (lowered to 4-8 cm [...] Exam Assessment: Problem #1: OBSTRUCTIVE SLEEP APNEA ([id number]) This is controlled with CPAP. She continues [...] months, sooner prn. Fifteen minutes were spent [id number], w ith the majority of time spent [...]
--- OUTSIDE RECORDS SUMMARY | ~2019-09-17 | XMS | Encounter Summary ---
Demographics + + + | Address | [address] [facility] [address] | | | [place] [address] | + + + | Home Phone [...] | Author | [facility] | | | and [place] | + + + | Organization | [facility] | [...] Team Providers + +------+ + | Care Optical Lathe Operator Name | Role | Phone | + +------+ + | Teena Busch NP | PCP | | + +------+ + Encounter Details +--------+---------+ + + + | Date | Type | Department | Care Team | Description | +--------+---------+ + + + | 03/10/ | Office | [facility] | Sundeep Ba PA | CONSUELO on CPAP (Primary | | 2015 | Visit | SLEEP DISORDER 401 | [address] | Dx) | | | | [address] [place] | [place] | | | | | [place] [address] | [address] | | | | | [phone] | | | +--------+---------+ + + + [...] counseling. Sundeep Ba PA-C cc: Teena Busch, PRODUCTION OFFICER-BC P STdocumented in this encounter Plan of Treatment Not on filedocumented as of this encounter Visit Diagnoses + + | Diagnosis | + + | CONSUELO on CPAP - Primary Obstructive sleep apnea (adult) (pediatric) | + + documented in this encounter
--- OUTSIDE RECORDS SUMMARY | ~2019-09-17 | XMS | Encounter Summary ---
Demographics + + + | Address | [address] [facility] [address] | | | [place] [address] | + + + | Home Phone [...] | Author | [facility] | | | and [place] | + + + | Organization | [facility] | | | and [place] | [...] Team Providers + +------+ + | Care Histology Specialist Name | Role | Phone | [...] | SLEEP DISORDER 401 | [address] | Dx) | | | | [address] [place] | [place] | | | | | [place] [address] | [address] | | | | | [phone] | | | +--------+---------+ + + + [...] AM PST Subjective: Patient ID: Luz Maria Kitchen Kristine is a 62 y.o. female. HPI last office visit was: 07/28/2017 date of split-night polysomnography: 12/03/2014 AHI: 62.1 RDI: 69.2 O2%: 74% with 27.0 minutes below 88% Machine type: ResMed AirSense 10 with nasal mask obtained from: [employer] in [place] pressure: 9-20 cm (lowered to 4-8 cm [...] not contact our office or In Home [facility] in [place]. She thinks her power cord may have [...] Exam Assessment: Problem #1: OBSTRUCTIVE SLEEP APNEA ([id number]) This is controlled with CPAP. She improved her usage with her CPAP, but is still inconsist ent with it. Plan: 1. She is to continue with CPAP indefinitely. 2. She is to work toward wearing her CPAP 100% of the time she is asleep. I will follow up again in 2 months, sooner prn. Fifteen minutes were spent [id number], w ith the majority of time spent [...]
--- OUTSIDE RECORDS SUMMARY | ~2019-09-17 | XMS | Encounter Summary ---
Demographics + + + | Address | [address] [facility] [address] | | | [place] [address] | + + + | Home Phone [...] | Author | [facility] | | | and [place] | + + + | Organization | [facility] | | [...] Team Providers + +------+ + | Care Picu Nurse Name | Role | Phone | [...] + + | 10/19/ | Office | [facility] | Sundeep Ba PA | CONSUELO on CPAP (Primary | | 2016 | Visit | SLEEP DISORDER 401 | [address] | Dx) | | | | [address] [place] | [place] | | | | | [place] [address] | [address] | | | | | [phone] | | | +--------+---------+ + + + [...] AirSense 10 with nasal mask obtained from: [employer] in [place] pressure: 9-20 cm (lowered to 4-8 cm [...] Exam Assessment: Problem #1: OBSTRUCTIVE SLEEP APNEA ([id number]) This is controlled with CPAP. She continues [...] months, sooner prn. Fifteen minutes were spent [id number], w ith the majority of time spent in counseling. Sundeep Ba PA-C cc: Teena Busch STIFF LEG DERRICK OPERATOR-DARRYN documented in this enco unter Plan of Treatment Not on filedocumented as of this encounter Visit Diagnoses + + | Diagnosis | + + | CONSUELO on CPAP - Primary Obstructive sleep apnea (adult) (pediatric) | + + documented in this encounter
--- OUTSIDE RECORDS SUMMARY | ~2019-09-17 | XMS | Encounter Summary ---
Demographics + + + | Address | [address] [facility] | | | [place] [address] | + + + | Home Phone [...] Author | [facility] | | | and [place] | + + + | Organization | [facility] | [...] Team Providers + +------+ + | Care Rehabilitation Aide Name | Role | Phone | [...] + + | 09/13/ | Emergency | [facility] | Jeff Dangelo, | Sharp headache | | 2019 - | | [facility] | MD [address] | (Primary Dx) | | | | CENTER [address] | [facility] [place] | | | 09/14/ | | [place], [place] | [place] [address] | | | 2019 | | [address] | [phone] | | | | | [phone] | | | +--------+ + + + [...] be sent through Care Everywhere.Headache, Unspe cified (Georgian)Trigeminal Neuralgia (Georgian)documented in this encounter Medications at Time of [...] + documented as of this encounter ED Leta Crespo RN - 09/14/2019 10:27 PM PDTPatient states she has had a five day his tory of intermittent sharp pains going through her left head. States history of migraine, b ut this pain is different. Reports dizziness and occasional nausea. Jeff Sharp MD - 09/14/2019 10:27 PM PDT [facility] Luz Maria Carmona EMERGENCY DEPARTMENT ENCOUNTER NOTE [address] [place] [id number] PCP:Abimael Devlin MD CHIEF COMPLAINT Chief Complaint [...] that. Her primary care provider is in [facility]. She lives in [facility]. She prefers to come to the ER here in [facility]. She is accompanied by a friend but she is providing her own history. She took some I mitrex earlier today and it didn't help. No vision changes. PAST MEDICAL HISTORY Past Medical History: Diagnosis Date Anxiety and depression Arthritis Asthma with associated shortness of breath Bipolar 1 disorder ([facility]) Cervical dystonia Cervicalgia Chronic daily headache Chronic pain Depression treated through [employer] Diabetes mellitus ([facility]) 1999 Diverticulitis Environmental allergies Fibromyalgia managed by [...] Procedure: COLONOSCOPY; Surgeon: Patrick England MD; [facility] HYSTERECTOMY KNEE CARTILAGE SURGERY right low back surgery x 2 Fusion L5-6 TUBAL LIGATION WRIST FRACTURE SURGERY left x2 CURRENT MEDICATIONS 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 cyclobenzaprine (FLEXERIL) 5 MG tablet [...] at bedtime for 3 days then ta lamar 2 capsule... (REFER TO PRESCRIPTION NOTES). promethazine [...] drug use. Social History Narrative Lives in [place] in apartment. REVIEW OF SYSTEMS All systems [...] 18 SpO2: 97 % BP: (!) 16 2/ FINAL IMPRESSION 1. Sharp headache PLAN Follow-up Information Abimael Devlin MD. Schedule an appointment as soon as possible for a visit in 1 week. Specialty: Family Medicine Contact information: [address] [place] [address] Discharge Medication List as of 09/15/2019 12:37 AM START taking these medications Details carBAMazepine (TEGRETOL XR) 200 mg 12 hr tablet Take 1 tablet by mouth 2 times daily for 30 days.Disp-60 tablet,R-0, Print Jeff Dangelo MD 09/15/19 0624 documented in this encounter Plan of Treatment [...] L?MRN: | | | | | | [id number] | | | [id number] | | | riteri | | | [...] | | | St. | | | [place] | | | y | | | [...] Flags | | | | | | [place] | | | ED | | | Dispar | | | ity | | | Measur | | | e - | | | [place] | | | has | | | [...] | | | s. | | | [place] | | | | | | Health [...] | | | By: | | | [place] | | | | | | Health [...] | | | St. | | | [place] | | | y | | | [...] | | | St. | | | [place] | | | y H. | | [...] | | | St. | | | [place] | | | y H. | | [...] | | | St. | | | [place] | | | y H. | | [...] | | | St. | | | [place] | | | y H. | | [...] | | | St. | | | [place] | | | y H. | | [...] | | | St. | | | [place] | | | y H. | | [...] | | | | | M/uL | [facility] | | | | [...] | Preliminary studies have | | [facility] | | | s | indicated the [...] | Neutrophils | | K/uL | [facility] | | | | | | MEDICAL | | | | | | CENTER - | | | | | | LABORATORY | | + + + + + + | Absolute | 3.87 (H) | 0.60 - 3.20 | [facility] | | | Lymphocytes | | K/uL | [facility] | [...] | Immature | | K/uL | [facility] | | | Granulocyte | | | MEDICAL | | | s | | | CENTER - | | | | | | LABORATORY | | + + + + + + | % nRBC | 0 | 0 - 2 per 100 | [facility] | | | | | WBCs | . [facility] | | | | [...] ST. | [address] | [place], [place] | [phone] | | [facility] | | [address] | | | - LABORATORY | | [...] mL/min/1.73m2 | [facility] | | | [facility] | RATE,ESTIMATED | | MEDICAL | | | | mL/min/1.58k4Lesi than | | CENTER - | | [...] | | ine Ratio | | | [facility] | | | | | | [...] + | [facility] | [address] | [place] | [phone] | | [facility] | | [address] | | | - LABORATORY | | [...] + | [facility] | [address] | [place] | [phone] | | [facility] | | [address] | | | - LABORATORY | | [...] | | [facility] | | | Sedimentati | | | [...] + | [facility]. | [address] | [place], [place] | [phone] | | [facility] | | [address] | | | - LABORATORY | | [...] Procedure Note | + + | Tha, [id number] - 09/15/2019 8:[address] HEAD [...] | | | | | Intravenous, ONCE, 09/14/19 at | | PM PDT | | | | | 2230, For 1 dose | | | | | | + +-------+ +-------+---+---+ +---+---+ | | | +---+---+ + +-------+ +-------+---+---+ | ketorolac (TORADOL) injection | Given | 09/15/19 | 30 mg | | | | 30 mg 30 mg, Intravenous, ONCE, | | 20 12:07 | | | | | 09/14/19 at 2340, For 1 dose | | [...]
--- OUTSIDE RECORDS SUMMARY | ~2019-09-17 | XMS | Encounter Summary ---
Demographics + + + | Address | [address] [facility] [address] | | | [place] [address] | + + + | Home Phone | | + + + | Preferred Language | Unknown | + + + | Marital Status | | + + + | Shinto Affiliation | 1013 | + + + | Race | Unknown | + + + | Ethnic Group | Unknown | + + + Author + + + | Author | [facility] | | | and [place] | + + + | Organization | [facility] | | | and [...] Team Providers + +------+ + | Care Steam And Gas Turbine Assembler Name | Role | Phone | + [...] | | | | | | | NC | | | | | | | COLONOSCOPY | | | | | | | FLX DX | | | | | | | W/COLLJ SPEC | | | | | | | WHEN PFRMD | | | | | | | NC | | | | | | | COLONOSCOPY | | | | | | | W/BIOPSY | | | | | | | SINGLE/MULTI | | | | | | | PLE NC | | | | | | | COLSC FLX | | | | | | | W/RMVL OF | | | | | | | TUMOR POLYP | | | | | | | LESION SNARE | | | | | | | TQ NC | | | | | | | [...] | | | | | [address] | [facility] | | | | | [place] | [place] [address] | | | | | [address] | [phone] | | | | | [phone] | | | +--------+ + + + [...] Luz Maria Carmona 61 y.o. female 1955 [id number] Procedure(s) COLONOSCOPY (N/A Rectum) Cooperates? Yes Mental [...] by Erasmo Herrera II, MD 10/14/2016 13:40 [facility] nesthesia Preprocedure Evaluation - Erasmo Herrera II, MD - 10/14/2016 11:00 AM PDT ANESTHESIA PREANESTHESIA EVALUATION Luz Maria Carmona 61 y.o. female 1955 [id number] Procedure(s): COLONOSCOPY (N/A Rectum) Review of Systems / Med History Anesthesia History (+) PONV Cardiovascular (+) hypertension, past VT (+) PVD: Pulmonary (+) asthma(+) sleep apnea: [...]
--- OUTSIDE RECORDS SUMMARY | ~2019-09-17 | XMS | Encounter Summary ---
Demographics + + + | Address | [address] [facility] [address] | | | [place] [address] | + + + | Home Phone [...] | [facility] | | | and [place] | + + + | Organization | [facility] [...] Team Providers + +------+ + | Care Allergist/Immunologist Name | Role | Phone | + [...] [address] | | | | | [address] | [place] | | | | | [place] | [address] | | | | | [address] | | | | | | [phone] | | | +--------+ + + + [...] AM PSTPatient was seen on 03/15. elephone [facility] willian - Mary Silva - 03/10/2018 8:36 AM PSTLMVM for patient to call back, please renae edule patient for a follow up with Dr Ojeda. elephone Encounter - Abby Vaughan, Epic Willow Specialist - 03/09/20 18 2:51 PM PSTPlease schedule patient for a follow up. Thank you elephone Encounter - Ruth Palomo - 03/09/2018 11:35 AM PSTPATIENT CALLED AND WANTED TO KNOW IF YOU RECEIVED HER FORM ALICJA T SHE INCLUDED IN A [employer] CARD TO DR. OJEDA. SHOT LASTED ABOUT 2 DAYS AND WAS SENT TO DR. Balderrama AND SHOT FROM DR. Balderrama DID NOT HELP EITHER. PLEASE CALL AND ADVISE [phone] onically signed by Sylvia Palomo at 03/09/2018 11:37 AM PSTdocumented in this encounter Plan of Treatment Not on filedocumented as of this encounter Visit Diagnoses Not on filedocumented in this encounter"
[~2019-09-17 19:30] MED LIST changes: +DULOXETINE HCL60 MG PO; +LAMOTRIGINE200 MG PO; +PENICILLIN V P500 MG PO; +SODIUM CHLORIDE1 GM PO
--- OUTSIDE RECORDS SUMMARY | 2019-09-17 19:32 | XMS ---
PreManage Notification: TIM LOCKWOOD Security Grazing Aide Events No recent Security Events currently on file CRITERIA MET - [facility] - Has Care Guidelines - PDMP - [facility] - 2 Visits in 30 Days CARE PROVIDERS SANJEEV BREAUX Family [facility] 05/23/2018-Current PHONE: [phone] Guidelines Source: [email or web address] [facility] Guidelines Date: 06/29/2018 Care Coordination: Currently engaged in mental health services with [email or web address].\T\nbsp; Please contact [email or web address] with mental health concerns.\T\nbsp; Axel/Chandan Caruso: \T\nbsp; [phone]\T\nbsp; \T\nbsp; [place]: [phone]. Care History Medical/Surgical 06/14/2018 [facility] CASE MANAGEMENT REFERRAL MADE- PATIENT HAS [facility] AND NO PCP. E.D. V[facility] (12 MO.) [facility] TOTAL 6 NOTE: Visits indicate total known visits. ED/UCC VISIT TRACKING (12 MO.) 09/17/2019 19:30 [facility] TYPE: Emergency COMPLAINT: - DIZZINESS 09/14/2019 21:35 [facility] Dayana BEASLEY TYPE: Emergency DIAGNOSES: - Headache - Headache (Adult - New Onset Or New Symptoms) - pain in head 01/30/2019 20:49 [facility] [place] TYPE: Emergency COMPLAINT: - SWORE THROAT/ABDOMINAL CRAMPS 12/04/2018 19:23 [facility] [place] TYPE: Emergency COMPLAINT: - ABDOMINAL PAIN DIAGNOSES: - Personal history of nicotine dependence - Unspecified abdominal pain - Allergy status to other drugs, medicaments and biological sub - alf (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 of oral 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 drugs - Allergy status to narcotic agent status - Major depressive disorder, single episode, unspecified - Umbilical hernia without obstruction or gangrene - Type 2 diabetes mellitus without complications - Other buttermaker helper (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 - Essential (primary) hypertension 10/02/2018 19:19 [facility] [place] TYPE: Emergency COMPLAINT: - ABD PAIN DIAGNOSES: - Allergy status to other drugs, medicaments and biological sub - Other buttermaker helper (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 - Type 2 diabetes mellitus without complications - Essential (primary) hypertension - Unspecified abdominal pain - Other chronic pain - Major depressive disorder, single episode, unspecified - Allergy status to narcotic agent status 10/02/2018 02:20 [facility] [place] TYPE: Emergency COMPLAINT: - ABDOMINAL PAIN DIAGNOSES: - Essential (primary) hypertension - Other buttermaker helper (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 - Hypo-osmolality and hyponatremia - Type 2 diabetes mellitus without complications - Allergy status to other drugs, medicaments and biological sub - Ventral hernia without obstruction or gangrene - Unspecified abdominal pain - Allergy status to narcotic agent status - Major depressive disorder, single episode, unspecified INPATIENT VISIT TRACKING (12 MO.) 02/07/2019 06:38 [facility] [place] TYPE: Surgery COMPLAINT: - OPEN PERIUMBILICAL INCISIONAL HERNIA REPAIR W/MESH DIAGNOSES: - Incisional hernia without obstruction or gangrene 01/31/2019 05:29 [facility] [place] TYPE: Medical Surgical COMPLAINT: - ABDOMINAL PAIN/UMBILICAL HERNIA DIAGNOSES: - Allergy status to narcotic agent status - alf (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 of oral 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 drugs - Syndrome of inappropriate secretion of antidiuretic hormone - Schizoaffective disorder, unspecified - Cervicalgia - Fibromyalgia - Body mass index (BMI) 38.0-38.9, adult - Other jail (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 - alf (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 of opiate analgesic - Other chronic pain - Encounter for immunization - Obesity, unspecified - Incisional hernia without obstruction or gangrene - Allergy status to other antibiotic agents status - Generalized abdominal pain - Migraine, unspecified, not intractable, without status migrai - Essential (primary) hypertension - Streptococcal pharyngitis - Hypomagnesemia - Type 2 diabetes mellitus without complications - Allergy status to other drugs, medicaments and biological sub [email or web address]
[2019-09-17] MEDS ORDERED: CARBAMAZEPINE200 M2 PO (20:09)
== END 2019-09-17 22:38 | disposition home or self-care (01) ==
LOC: ED 19:30
DX: R51 Headache (principal); R42 Dizziness and giddiness; E87.1 Hypo-osmolality and hyponatremia; I10 Essential (primary) hypertension; E11.9 Type 2 diabetes mellitus without complications; F32.9 Major depressive disorder, single episode, unspecified; F17.200 Nicotine dependence, unspecified, uncomplicated; Z88.8 Allergy status to other drugs, medicaments and biological substances; Z88.5 Allergy status to narcotic agent; Z79.899 Other long term (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; Z79.84 Long term (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 of oral 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 drugs
CPT/HCPCS: 80053; 81001; 83735; 84484; 85025; 96372; 99284; J1885

== ENCOUNTER 2019-12-19 12:53 | Observation (INO) | payer MEDICARE, OTHER ==
[~2019-12-19] VITALS: Ht 175.3 cm; Wt 123.8 kg
--- OUTSIDE RECORDS SUMMARY | ~2019-12-19 | XMS | Encounter Summary ---
Demographics + + + | Address | [address] | | | [place] [address] | + + + | Home Phone | | + + + | Preferred Language | Unknown | + + + | Marital Status | | + + + | Taoist Affiliation | 1013 | + + + | Race | White | + + + | Ethnic Group | Not or | + + + Author + + + | Author | [facility] | | | and [place] | + + + | Organization | [facility] | | | and [place] | + + + | Address | Unknown | + + + | Phone | Unavailable | + + + Support + + +---------+ + | Name | Relationship | Address | Phone | + + +---------+ + | Shasta Yepez | ECON | Unknown | | + + +---------+ + Care Team Providers + +------+ + | Care Retail Marketing Manager Name | Role | Phone | + +------+ + | Abimael Devlin MD | PCP | | + +------+ + Reason for Visit +--------+--------+ + | Reason | Onset | Comments | | | Date | | +--------+--------+ + | Other | 10/15/ | dizzy and side pain | | | 2016 | | +--------+--------+ + Encounter Details +--------+ + + + + | Date | Type | Department | Care Team | Description | +--------+ + + + + | 10/15/ | Telephone | [facility] | Patrick England MD | Other (dizzy and | | 2016 | | GASTROENTEROLOGY | [address], [place] | side pain) | | | | [address] [place] | [address] [place], [place] | | | | | [address] [place], [place] | [address] | | | | | [address] | | | | | | [phone] | | | +--------+ + + + + Social History + + + +--------+ + | Tobacco Use | Types | Packs/Day | Years | Date | | | | | Used | | + + + +--------+ + | Former Smoker | Cigarettes | 0.5 | 20 | Quit: 07/31/2014 | + + + +--------+ + + [...] on file | | + + + documented as of this encounter Miscellaneous Notes Telephone Encounter - Jenni Lake RN - 10/18/2016 12:25 PM PDTSpoke with patient and she reports she is much better now. She states she feels the dizziness was due to the s edation. She states her blood pressure is normal now and she denies any further GI symptoms . elephone Encoun Beti Bright RN - 10/15/2016 9:39 AM PDTPt states dizzy and not sure if from procedure yesterday; she states she is having dizzy spells and having to hold onto things t mukund; she stated her blood pressure was 72 over ?; advised that seems pretty low; she takes blood pressure medications and took them this morning; states her stomach "maldonado" admits micho[place] e pain/cramping; relieves when cramping ends; if she coughs due to dryness and causes stomac h to maldonado as well; hasn't felt "right" for a weeks; she states she is a 7 out of 10 on pain scale; states she has hx of hernia's; pt states she has hx of diverticular disease; has tan en medication for spasms in the past; denies SOB, fever. Do you recommend office visit or m edication? Advised I would check with Dr. England's nurse to see what they would recommend. E lectronically signed by Beti Arzate RN at 10/15/2016 9:53 AM PDTdocumented in this encounter Plan of Treatment Not on filedocumented as of this encounter Visit Diagnoses Not on filedocumented in this encounter
--- OUTSIDE RECORDS SUMMARY | ~2019-12-19 | XMS | Encounter Summary ---
Demographics + + + | Address | [address] | | | [place] [address] | + + + | Home Phone | | + + + | Preferred Language | Unknown | + + + | Marital Status | | + + + | Worship Affiliation | 1013 | + + + | Race | White | + + + | Ethnic Group | Not or | + + + Author + + + | Author | [facility] | | | and [place] | + + + | Organization | [facility] | | | and [...] Team Providers + +------+ + | Care Power Shear Operator Name | Role | Phone | + [...] Description | +--------+---------+ + + + | 07/28/ | Office | [facility] | Sundeep Ba PA | CONSUELO on CPAP (Primary | | 2018 | Visit | SLEEP DISORDER [address] | [address] | Dx) | | | | [address] [place] | [place] | | | | | [place] [address] | [address] | | | | | [phone] | | | +--------+---------+ + + + [...] + + + | Blood Pressure | 140/88 | 07/28/2017 1:47 PM | | | | | PDT | | + + + + + | Pulse | 89 | 07/28/2017 1:47 PM | | | | | PDT | | + + + + + | Temperature | - | - | | + + + + + | Respiratory Rate | 20 | 07/28/2017 1:47 PM | | | | | PDT | | + + + + + | Oxygen Saturation | 91% | 07/28/2017 1:47 PM | | | | | PDT | | + + + + + | Inhaled Oxygen | - | - | | | Concentration | | | | + + + + + | Weight | 119.7 kg (263 lb | 07/28/2017 1:47 PM | | | | 14.3 oz) | PDT | | + + + + + | Height | - | - | | + + + + + | Body Mass Index | 40.12 | 10/29/2016 5:49 PM | | | | | PDT | | + + + + + documented in this encounter Progress Notes Earnestine Haley, Marine Mechanic - 07/28/2017 2:00 PM PDTFormatting of this note might b e different from the original. 07/28/17 1300 Tilley Depression Inventory-II Depression Score 34 - Severe depression Insomnia Severity Index Insomnia Severity Index 24 Seligman Sleepiness Scale Sitting and reading 2 Watching TV 2 Sitting, inactive in a public place (e.g. a theatre or a meeting) 1 As a passenger in a car for an hour without a break 1 Lying down to rest in the afternoon when circumstances permit 2 Sitting and talking to someone 2 Sitting quietly after a lunch without alcohol 2 In a car, while stopped for a few minutes in traffic 0 Total score 12 SF-36v2 Score PF 51.8 RP 23.47 BP 21.68 GH 33.22 VT 40.72 SF 22.25 RE 21.35 MH 24.71 PCS 39.29 MCS 21.51 oram, MINOO Cole - 2:00 PM PDT Subjective: Patient ID: Luz Maria Carmona is a 62 y.o. female. HPI last office visit was: 12/04/2015 date of split-night polysomnography: 12/03/2014 AHI: 62.1 RDI: 69.2 O2%: 74% with 27.0 minutes below 88% Machine type: ResMed AirSense 10 with nasal mask obtained from: [facility] in [place] pressure: 9-20 cm (lowered to 4-8 cm for comfort) Median: cm 95%: cm maximum: cm Nights using CPAP: 33/45 No download % of nights >4 hours: 73% % average usage (all nights): 4:41 average usage (nights used): 6:24 AHI: 1.7 "Alma Rosa" comes in for CPAP compliance. She does well with her CPAP when she wears it, but has struggled with her consistency. She was doing well at her last visit, but says she hasn 't used her CPAP in the last year. This started after her best friend . She had a difficult time being motivated to do anything and has struggled to get back into wearing her CPAP. The pathophysiology of Obstructive Sleep Apnea was discussed in detail with her. The associations between CONSUELO and hypertension, ASCVD, cardiac rhythm abnormalities, stroke, diabetes, and weight were also discussed. We also discussed the importance of wearing her C PAP 100% of the time she is asleep in order to develop it into a regular part of her sleep r outine. She is motivated to do well with her CPAP because she wants to stay healthy for her grandchildren. We were not able to get a download because she has not been using her CPAP. BP 140/88 | Pulse 89 | Resp 20 | Wt 119.7 kg (263 lb 14.3 oz) | SpO2 91% | BMI 40.12 k g/m Review of Systems Objective: Physical Exam Assessment: Problem #1: OBSTRUCTIVE SLEEP APNEA ([id number]) This is controlled with CPAP, but she hasn't used it in the last year. Plan: 1. She is to continue with CPAP indefinitely. 2. She is to work toward wearing her CPAP 100% of the time she is asleep. I will follow up again in 1 month, sooner prn. Fifteen minutes were spent [id number], wi th the majority of time spent in counseling. Sundeep Ba PA-C cc: Abimael Devlin MD documented in this enco unter Plan of Treatment Not on filedocumented as of this encounter Visit Diagnoses + + | Diagnosis | + + | CONSUELO on CPAP - Primary Obstructive sleep apnea (adult) (pediatric) | + + documented in this encounter
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
--- OUTSIDE RECORDS SUMMARY | ~2019-12-19 | XMS | Encounter Summary ---
Demographics + + + | Address | [address] | | | [place] [address] | + + + | Home Phone | | + + + | Preferred Language | Unknown | + + + | Marital Status | | + + + | Samaritan Affiliation | 1013 | + + + | Race | White | + + + | Ethnic Group | Not or | + + + Author + + + | Author | [facility] | | | and [place] | + + + | Organization | [facility] | | | and [...] Team Providers + +------+ + | Care Service Order Dispatcher Name | Role | Phone | + +------+ + | Teena Busch NP | PCP | | + +------+ + Encounter Details +--------+ + + + + | Date | Type | Department | Care Team | Description | +--------+ + + + + | 07/31/ | Orders Only | [facility] [place] | Leonidas Huddleston, | Chronic daily | | 2016 | | PHYSIATRY [address] | MD [address] | headache; | | | | [address] | [place] | Fibromyalgia | | | | [place] | [address] | | | | | [address] | | | | | | [phone] | | | +--------+ + + + [...] | Diagnosis | + + | Chronic daily headache Headache | + + | Fibromyalgia Mylagia and myositis, unspecified | + + documented in this encounter"
--- OUTSIDE RECORDS SUMMARY | ~2019-12-19 | XMS | Encounter Summary ---
Demographics + + + | Address | [address] | | | [place] [address] | + + + | Home Phone | | + + + | Preferred Language | Unknown | + + + | Marital Status | | + + + | Mormonism Affiliation | 1013 | + + + | Race | White | + + + | Ethnic Group | Not or | + + + Author + + + | Author | [facility] | | | and [place] | + + + | Organization | [facility] | | | and [...] Team Providers + +------+ + | Care Frame Polisher Name | Role | Phone | + [...] + + | 06/07/ | Office | [facility] | Andre Caballero | Chronic pain of both | | 2019 | Visit | ORTHOPEDIC SURGERY | MD Rojelio [address] | knees (Primary Dx); | | | | [address] | [place] | Primary | | | | [place] | [address] | osteoarthritis of | | | | [address] | | both knees | | | | [phone] | | | +--------+---------+ + + + [...] received bilateral kn ee injections from Dr. Morgan approximate 4 years ago which helped for a [...]
--- OUTSIDE RECORDS SUMMARY | ~2019-12-19 | XMS | Encounter Summary ---
Demographics + + + | Address | [address] | | | [place] [address] | + + + | Home Phone | | + + + | Preferred Language | Unknown | + + + | Marital Status | | + + + | Episcopalian Affiliation | 1013 | + + + | Race | White | + + + | Ethnic Group | Not or | + + + Author + + + | Author | [facility] | | | and [place] | + + + | Organization | [facility] | | | [...] Team Providers + +------+ + | Care Layup Worker Name | Role | Phone | + [...] Closed | | Radiology | Diagnoses | | [facility] | | | | | Right hip | Lisa, | [address] | | | | | pain | Paco T, MD | [place], | | | | | Procedures | [address] | [place] | | | | | [place] Asp | [place] | [address] | | | | | and/or Inj | [place] | Phone: | | | | | Major Joint | [address] | [phone] | | | | | Right CHG | Phone: | Fax: | | | | | FLUOROSCOPIC | [phone] | [phone] | | | | | GUIDANCE | Fax: | | | | | | NEEDLE | [phone] | | | | | | PLACEMENT | | | | | | | ADD ON [place] | | | | | | | ARTHROCENTES | | | | | | | IS | | | | | | | ASPIR&/INJ | | | | | | | MAJOR | | | | | | | JT/BURSA W/O | | | | | | | US 12/20- | | | | | | | PEND | | | | | | | RESPONSE | | | | | | | FROM | | | | | | | CLINICAL | | | | | | | STAFF | | | +--------+--------+ + + + + Encounter Details +--------+ + + + + | Date | Type | Department | Care Team | Description | +--------+ + + + + | 12/06/ | Orders Only | [facility] [place] | Paco Gonzalez | Right hip pain | | 2018 | | PHYSIATRY [address] | T, MD [address] | (Primary Dx) | | | | [address] | [place] | | | | | [place], [place] | [address] | | | | | [address] | | | | | | [phone] | | | +--------+ + + + [...] on filedocumented as of this encounter Results FL Asp and/or Inj Major Joint Right (12/26/2017 1:52 PM PDT) + + | Specimen | + + | | + + + + + | Narrative | Performed At | + + + | 12/26/2017 | [facility] | | RIGHT INTRAARTICULAR HIP INJECTION CLINICAL HISTORY: ICD-10 CODE | | | M25.55, HIP PAIN. Luz Maria Kitchen Kristine presents to the fluoroscopy | | | suite for a fluoroscopically-guided right intraarticular hip injection | | | as part of conservative management for chronic pain and hip | | | arthropathy. After informed consent was obtained, the patient laid | | | in the supine position on the fluoroscopy table. The right | | | intertrochanteric line was located under fluoroscopic guidance. The | | | area was prepped and draped in a sterile fashion. Then a 25-gauge 1.5 | | | inch needle was inserted into this region and approximately 3 mL | | | buffered 1% lidocaine was infused. Next a 22-gauge spinal needle was | | | inserted into the joint space under fluoroscopic guidance. | | | Confirmation into the joint capsule was obtained with infusion of | | | approximately 1 mL Omnipaque contrast, which showed capsular flow. | | | Then, a combination of 1 mL of 40 mg/mL Kenalog and 4 mL 1% lidocaine | | | was infused. The patient tolerated the procedure well without | | | complications. Pre- and post-procedure blood pressure was stable. The | | | patient was given verbal as well as written followup instructions. The | | | patient reported good improvement in pain symptoms post-procedure. | | | Prior to the start of the procedure, the following were performed or | | | verified, including correct patient identity, correct site/side marked | | | and verified, agreement of the procedure to be done, correct patient | | | positioning and an accurate procedure consent form. Any safety | | | precautions based on clinical history and/or medication use have been | | | addressed. I personally performed the procedure above. Estimated | | | blood loss: MinimalComplications: NoneFindings: As | | | expectedAnesthesia: Local 1% Lidocaine | | |based on clinical history and/or medication use have been addressed. | | | | | |I personally performed the procedure above. | | | | | |Estimated blood loss: Minimal | | |Complications: None | | |Findings: As expected | | |Anesthesia: Local 1% Lidocaine | | | | | | | | + + + + +---------+ + + | [...] thigh | + + documented in this encounter"
--- OUTSIDE RECORDS SUMMARY | ~2019-12-19 | XMS | Encounter Summary ---
Demographics + + + | Address | [address] | | | [place] [address] | + + + | Home Phone | | + + + | Preferred Language | Unknown | + + + | Marital Status | | + + + | Cheondoism Affiliation | 1013 | + + + | Race | White | + + + | Ethnic Group | Not or | + + + Author + + + | Author | [facility] | | | and [place] | + + + | Organization | [facility] | | | [...] Team Providers + +------+ + | Care Radio Program Checker Name | Role | Phone | + +------+ + | Abimael Devlin MD | PCP | | + +------+ + Reason for Visit +--------+--------+ + | Reason | Onset | Comments | | | Date | | +--------+--------+ + | Other | 12/16/ | | | | 2014 | | +--------+--------+ + Encounter Details +--------+ + + + + | Date | Type | Department | Care Team | Description | +--------+ + + + + | 12/16/ | Telephone | [facility] [place] | Leonidas Huddleston, | Other | | 2014 | | PHYSIATRY [address] | MD [address] | | | | | [address] | [place], [place] | | | | | [place] | [address] | | | | | [address] | | | | | | [phone] | | | +--------+ + + + [...] this encounter Miscellaneous Notes Telephone Encounter - Charmaine Dangelo RN - 12/17/2014 5:21 PM PDTPatient called and noti fied of result. elep yasir Encounter - Charmaine Dangelo RN - 12/17/2014 5:09 PM PDTPlease let Luz Maria Johns on know that I have reviewed her knee MRI. Let her know that it demonstrated a small tear in the meniscus. Please place a orthopedic surgery consult regarding her knee pain. Please let her know that we are recommending orthopedic surgery consult. elephone Encounter - Karin Crespo - 12/16/2014 11:27 AM PDTPatient called for results of MRI done 12/10 and to report increased pain and numbness in her right leg. Please advise. documented in this encounter Plan of Treatment Not on filedocumented as of this encounter Visit Diagnoses Not on filedocumented in this encounter"
--- OUTSIDE RECORDS SUMMARY | ~2019-12-19 | XMS | Encounter Summary ---
Demographics + + + | Address | [address] | | | [place] [address] | + + + | Home Phone [...] Author + + + | Author | [facility] | | | and [place] | + + + | Organization | [facility] | | | and [...] Team Providers + +------+ + | Care Criminal Psychologist Name | Role | Phone | + [...] + + | 12/17/ | Emergency | [facility] | Rj Leung MD | Knee contusion, | | 2014 | | MED CTR EMERGENCY | [address] | right, initial | | | | CENTER [address] | [place] | encounter (Primary | | | | [place], [place] | [address] | Dx); Knee sprain and | | | | [address] | | strain, right, | | | | [phone] | | initial encounter | +--------+ + [...] Oca MD - 12/17/2014 11:43 AM PDT [facility] Luz Maria Carmona Emergency Department Encounter Note [address] [place] [id number] PCP:Wicho Starkey MD [phone] CHIEF COMPLAINT: Knee [...]
--- OUTSIDE RECORDS SUMMARY | ~2019-12-19 | XMS | Encounter Summary ---
Demographics + + + | Address | [address] | | | [place] [address] | + + + | Home Phone | | + + + | Preferred Language | Unknown | + + + | Marital Status | | + + + | Confucianist Affiliation | 1013 | + + + | Race | White | + + + | Ethnic Group | Not or | + + + Author + + + | Author | [facility] | | | and [place] | + + + | Organization | [facility] | | | [...] Team Providers + +------+ + | Care Air Tucker Name | Role | Phone | + [...] +--------+ + + + + + | Denied | Specialty | Physical | Diagnoses | [place], | Leonidas Mohr | | | Services | Medicine and | Bilateral | Leonidas Irving MD | Alicia Irving MD [address] | | | Required | Rehabilitatio | occipital | [address] | | | | n | neuralgia | [address] | [place], | | | | | Procedures | [place], | [place] [address] | | | | | [place] IN[place] | [place] [address] | Phone: | | | | | NERV | Phone: | [phone] | | | | | GREGORIO MILLER | [phone] | Fax: | | | | | [place] | Fax: | [phone] | | | | | BETAMETHASON | [phone] | | | | | | E ACET&SOD | | | | | | | PHOSP, 3 MG | | | | | | | DOS 11/07/14 | | | | | | | PEND INS | | | | | | | 10/30 | | | +--------+ + + + + + Evaluate & Treat (Routine) +--------+ + + + + + | Status | Reason | Specialty | Diagnoses / | Referred By | Referred To | | | | | Procedures | Contact | Contact | +--------+ + + + + + | Closed | Specialty | Audiology | Diagnoses | Mohr, | Do Not Use | | | Services | | Benign | Leonidas Irving MD | - [facility] [place] | | | Required | | paroxysmal | [address] | Audiology And | | | | | positional | [address] | Hearing Aid | | | | | vertigo | MARIO MARTIN, | Services [address] | | | | | Procedures | [place] [address] | [address] | | | | | 10/25 PEND | Phone: | [address] | | | | | [place] | [phone] | [place], | | | | | | Fax: | [place] [address] | | | | | | [phone] | Phone: | | | | | | | [phone] | | | | | | | Fax: | | | | | | | [phone] | +--------+ + + + + + Evaluate & Treat (Routine) +--------+ + + + + + | Status | Reason | Specialty | Diagnoses / | Referred By | Referred To | | | | | Procedures | Contact | Contact | +--------+ + + + + + | Closed | Specialty | Otolaryngolog | Diagnoses | Mohr, | Do Not Use | | | Services | y | Benign | Leonidas Irving MD | - [facility] [place] | | | Required | | paroxysmal | [address] | Otolaryngolog | | | | | positional | [address] | y [address] | | | | | vertigo | [place], | [address] | | | | | Procedures | [place] [address] | [address] [place] | | | | | 10/25 PEND | Phone: | [place] | | | | | [place] | [phone] | [address] | | | | | | Fax: | Phone: | | | | | | [phone] | [phone] | | | | | | | Fax: | | | | | | | [phone] | +--------+ + + + + + Reason for Visit + + + | Reason | Comments | + + + | Neck Pain | | + + + Encounter Details +--------+---------+ + + + | Date | Type | Department | Care Team | Description | +--------+---------+ + + + | 10/16/ | Office | [facility] | Leonidas Mohr, | Vertigo (Primary | | 2014 | Visit | PHYSIATRY [address] | MD [address] | Dx); Bilateral | | | | [address] | [place], [place] | occipital neuralgia; | | | | [place], [place] | [address] | Chronic daily | | | | [address] | | headache; | | | | [phone] | | Cervicalgia; | | | | | | Cervical | | | | | | spondylosis; | | | | | | Cervical spinal | | | | | | stenosis; Status | | | | | | post cervical spinal | | | | | | fusion | +--------+---------+ + + + Social History [...] + + + | Blood Pressure | 129/79 | 10/16/2014 1:01 PM | | | | | PDT | | + + + + + | Pulse | 72 | 10/16/2014 1:01 PM | | | | | PDT | | + + + + + | Temperature | - | - | | + + + + + | Respiratory Rate | 18 | 10/16/2014 1:01 PM | | | | | PDT | | + + + + + | Oxygen Saturation | - | - | | + + + + + | Inhaled Oxygen | - | - | | | Concentration | | | | + + + + + | Weight | 98.9 kg (218 lb) | 10/16/2014 1:01 PM | | | | | PDT | | + + + + + | Height | 174 cm (5' 8.5") | 10/16/2014 1:01 PM | | | | | PDT | | + + + + + | Body Mass Index | 32.66 | 10/16/2014 1:01 PM | | | | | PDT | | + + + + + documented in this encounter Patient Instructions Patient Instructions Leonidas Mohr MD - 10/16/2014 1:33 PM PDTContinue physical therapy . It is recommended that you try and extended period of going fragrance free. ENT and audiology consult has been requested to evaluate your dizziness. Return to the clinic for bilateral occipital nerve blocks which may help reduced headaches. documented in this encounter Progress Notes Leonidas Mohr MD - 10/16/2014 2:13 PM PDT [facility] PHY[facility]ATRY [address] [facility] [address] OFFICE NOTE LEONIDAS MOHR JR, MD Patient: LUZ MARIA LOCKWOOD Admitting: MR #: [id number] LOC: PT TYPE: Adm Date: 10/16/2014 : 1955 PHYSICAL MEDICINE AND REHABILITATION PROGRESS NOTE DATE OF : 1955 PRIMARY CARE PROVIDER: Wicho Starkey MD DATE OF SERVICE: 10/16/2014 PATIENT IDENTIFICATION: 59-year-old female with headaches, fibromyalgia, total body pain, cervical spinal stenosis, status post cervical fusion and recent episodes of dizziness. HISTORY OF PRESENT ILLNESS: The patient was last seen by me 08/21/2014. At that time, her chief complaint was neck pain. At that time it was felt that she had cervical spondylosis with moderate spinal stenosis at C4-5, history of fusion from C5 through C7. It was also felt that she had chronic daily headaches and fibromyalgia. The patient was advised to pa rticipate in physical therapy. She was encouraged to go fragrance free to see if headaches would improve. She indicates that she went fragrance free for a few weeks but headaches p ersisted, so she resumed using fragrance. She is using very strong fragrance today during today's appointment, Today we reiterated that she may want to go fragrance free for an ex tended period of time to see if it would have any effect on headache symptoms. She reports that she has had migraine headaches since age 14. She reports headaches that start at the back of the head and radiate up to the top of the head, associated with tight neck muscles. She reports that she sometimes has tingling in t his distribution. She reports sensitivity to palpation over the back of the head in the oc cipital region. Headaches are sometimes worse on the left, sometimes worse on right. Sym ptoms are bilateral. She reports that the symptoms seem to be associated with tight neck m uscles. She reports that she has tight neck muscles, she just does not feel like she can r elax, they seem to get tight all on their own. She tried physical therapy. She is still doing some physical therapy. She reports that sh e aches for a bit after doing physical therapy. She indicates that she is noticing episode s of dizziness. They can occur any time throughout the day, they can occur while she is do ing therapy. She indicates that putting neck into extension seems to make her feel dizzy. She indicates that dizziness may be present when she rolls around in bed. Dizziness may a lso be present when she first gets up out of bed. She denies any syncope or presyncope. S he denies any feeling like she may faint. She reports that it feels more like the room is spinning around her, spinning towards the right when she has episodes of dizziness. She d enies any ringing in the ears. She denies any muffled sound. She denies sounds being mute d as if she is hearing them through water. ALLERGIES: ALPRAZOLAM, PRAZOSIN, QUETIAPINE. CURRENT MEDICATIONS: Abilify. Calcium carbonate with vitamin D. Valium 5 mg. Cymbalta 60 mg daily. Gabapentin 300 mg 2 capsules 3 times per day. Metformin. Naproxen. Prilosec. Verapamil. REVIEW OF SYSTEMS: The patient denies nausea, vomiting, diarrhea, constipation, fever, ch ills, shortness of breath, or chest pain. Denies skin breakdown or rash. All other review of systems negative. PHYSICAL EXAMINATION: VITAL SIGNS: Heart rate 72, respiratory rate 18, blood pressure 129/79, weight 218 pounds , height 5 feet 8-1/2 inches. GENERAL: No acute distress, alert and oriented to person, place, time and situation. HEENT: Extraocular muscles intact. Sclerae clear. NECK: Limited range of motion, increased tone over cervical paraspinal muscles. Severe t enderness to palpation over greater occipital nerves with immediate reproduction of occipit al region headaches, bilaterally. Headaches are reproducible with palpation over left and r ight greater occipital nerves. Headache pain and neck pain is an 08/10 on a numerical will n scale today. EXTREMITIES: Reveals no clubbing, cyanosis or edema. Fibromyalgia exam demonstrates 16 p ositive fibromyalgia tender points out of 18. Sensation, strength, reflexes grossly intact in bilateral upper and bilateral lower extremities. DATABASE: No new imaging or laboratory data available for review. ASSESSMENT: 1. Vertigo, ICD-9 780.4. 2. Bilateral occipital neuralgia, ICD-9 723.8. 3. Chronic daily headaches, ICD-9 784.0. 4. Cervicalgia, ICD-9 723.1. 5. Cervical spondylosis, ICD-9 721.0. 6. Cervical spinal stenosis at C4-5, ICD-9 723.0. 7. Cervical fusion from C5 through C7, ICD-9 V45.4. PLAN: The patient has greater occipital neuralgia. This may be associated with tight nec k muscles and prior cervical fusion. She has had physical therapy. She has tried numerous medications. At this time, she will return to clinic for bilateral greater occipital nerv e blocks in hopes of treating bilateral greater occipital neuralgia. This maybe triggered a migraine. She is encouraged to continue trying to go fragrance free for an extended per iod of time. She is wearing very strong fragrance today, during today's appointment, ray naranjo to her last appointment. She is encouraged to continue participation in physical thera py. She is having episodes of vertigo, they seem to be position related. She had a referr al placed to otolaryngology and audiology to evaluate origin and treat her vertigo. Thank you for allowing me to be involved in the care of your patient. If you have any ques tions regarding the care of this patient, please do not hesitate to call. LEONIDAS MOHR JR, MD Dictated by LEONIDAS MOHR JR, MD 10/16/2014 14:13:06 Transcribed on 10/16/2014 19:17:28 by hailee job# [id number] Confirmation #: [id number] cc: WICHO STARKEY MD Leonidas Mohr MD - 10/16/2014 1:33 PM PDTThis office note has been dictated. Job ID# [id number] signed by Leonidas Mohr MD at 10/16/2014 2:13 PM PDTdocumented in this encounter Plan of Treatment + + +--------+ + + | Name | Type | Priori | Associated Diagnoses | Order Schedule | | | | ty | | | + + +--------+ + + | * SHYLA BEASLEY | Outpatient | Routin | Vertigo | Ordered: 10/16/2014 | | Otolaryngology - AMB | Referral | e | | | | Referral | | | | | + + +--------+ + + | * SHYLA BEASLEY | Outpatient | Routin | Vertigo | Ordered: 10/16/2014 | | Audiology and | Referral | e | | | | Hearing Aid Services | | | | | | - AMB Referral | | | | | + + +--------+ + + | Ambulatory referral | Outpatient | Routin | Bilateral | Ordered: 10/16/2014 | | to Physical Medicine | Referral | e | occipital neuralgia | | | Rehab | | | | | + + +--------+ + + documented as of this encounter Visit Diagnoses + + | Diagnosis | + + | Vertigo - Primary Dizziness and giddiness | + + | Bilateral occipital neuralgia Other syndromes affecting cervical region | + + | Chronic daily headache Headache | + + | Cervicalgia | + + | Cervical spondylosis Cervical spondylosis without myelopathy | + + | Cervical spinal stenosis Spinal stenosis in cervical region | + + | Status post cervical spinal fusion Arthrodesis status | + + documented in this encounter
--- OUTSIDE RECORDS SUMMARY | ~2019-12-19 | XMS | Encounter Summary ---
Demographics + + + | Address | [address] | | | [place] [address] | + + + | Home Phone | | + + + | Preferred Language | Unknown | + + + | Marital Status | | + + + | Mandaeism Affiliation | 1013 | + + + | Race | White | + + + | Ethnic Group | Not or | + + + Author + + + | Author | [facility] | | | and [place] | + + + | Organization | [facility] | | | [...] Team Providers + +------+ + | Care Product/Industry Consultant Name | Role | Phone | + [...] Description | +--------+---------+ + + + | 12/03/ | Office | [facility] | Sundeep Ba PA | CONSUELO on CPAP (Primary | | 2016 | Visit | SLEEP DISORDER [address] | [address] | Dx) | | | | [address] [place] | [place] | | | | | [place] [address] | [address] | | | | | [phone] | | | +--------+---------+ + + + [...] + + + | Blood Pressure | 130/80 | 12/04/2015 11:09 AM | | | | | PDT | | + + + + + | Pulse | 94 | 12/04/2015 11:09 AM | | | | | PDT | | + + + + + | Temperature | - | - | | + + + + + | Respiratory Rate | 16 | 12/04/2015 11:09 AM | | | | | PDT | | + + + + + | Oxygen Saturation | 98% | 12/04/2015 11:09 AM | | | | | PDT | | + + + + + | Inhaled Oxygen | - | - | | | Concentration | | | | + + + + + | Weight | 107 kg (235 lb 12.8 | 12/04/2015 11:09 AM | | | | oz) | PDT | | + + + + + | Height | - | - | | + + + + + | Body Mass Index | 35.85 | 11/14/2015 8:54 AM | | | | | PDT | | + + + + + documented in this encounter Progress Notes Sundeep Ba PA - 12/04/2015 10:58 AM PDT Subjective: Patient ID: Luz Maria Carmona is a 60 y.o. female. HPI last office visit was: 10/20/2015 date of split-night polysomnography: 12/03/2014 AHI: 62.1 RDI: 69.2 O2%: 74% with 27.0 minutes below 88% Machine type: ResMed AirSense 10 with nasal mask obtained from: [employer] in [place] pressure: 9-20 cm (lowered to 4-8 cm for comfort) Median: 7.7 cm 95%: 7.9 cm maximum: 7.9 cm Nights using CPAP: 33/45 % of nights >4 hours: 73% average usage (all nights): 4:41 average usage (nights used): 6:24 AHI: 1.7 "Alma Rosa" comes in for CPAP compliance. She does well with her CPAP when she wears it, but has struggled with her consistency in the past. This has improved considerably during the l month. Her granddaughter is living with her and has encouraged her to wear her CPAP. S he is now wearing it nightly for the duration of her sleep and is noticing that she is sleep ing much better and feeling more rested during the day. She slept without it last night and did not sleep well. She has been much more sleepy today. She now enjoys going to bed with her CPAP. Her CPAP has become a regular part of her sleep routine. She didn't wear it las t night because she washed it late in the day and it was still wet and she was worried about it blowing water through her mask. I have discussed the download in detail. This shows that her sleep apnea is much improved, with an AHI of 1.7. It also shows that her leaks are controlled. It shows that she is wea ring her CPAP >4 hours for 76% of the nights during 30 consecutive nights. BP 130/80 mmHg | Pulse 94 | Resp 16 | Wt 106.958 kg (235 lb 12.8 oz) | SpO2 98% Review of Systems Objective: Physical Exam Assessment: Problem #1: OBSTRUCTIVE SLEEP APNEA ([id number]) This is controlled with CPAP. She continues to struggle with her consistency. She has us ed her CPAP >4 hours for 76% of the nights for 30 consecutive nights. Plan: 1. She is to continue with CPAP indefinitely. 2. She is to work toward wearing her CPAP 100% of the time she is asleep. I will follow up again in 3 months, sooner prn. Fifteen minutes were spent [id number], w ith the majority of time spent [...]
--- OUTSIDE RECORDS SUMMARY | ~2019-12-19 | XMS | Encounter Summary ---
Demographics + + + | Address | [address] | | | [place] [address] | + + + | Home Phone | | + + + | Preferred Language | Unknown | + + + | Marital Status | | + + + | Taoist Affiliation | 1013 | + + + | Race | White | + + + | Ethnic Group | Not or | + + + Author + + + | Author | [facility] | | | and [place] | + + + | Organization | [facility] | | | and [...] Team Providers + +------+ + | Care Collar Padder Blindstitch Name | Role | Phone | + [...] | Specialty | Physical | Diagnoses | [facility] Se | | | Services | Medicine and | Right hip | Andre Serrato, | Physiatry | | | Required | Rehabilitatio | pain | [address] | | | | n | Trochanteric | [address] | [address] | | | | | bursitis of | [place], | [place], | | | | | right hip | [place] [address] | [place] [address] | | | | | Primary | Phone: | Phone: | | | | | osteoarthrit | [phone] | [phone] | | | | | is of right | Fax: | Fax: | | | | | hip | [phone] | [phone] | +--------+ + + + + + Encounter Details +--------+ + + + + | Date | Type | Department | Care Team | Description | +--------+ + + + + | 10/28/ | Orders Only | [facility] | Andre Caballero | Right hip pain | | 2018 | | ORTHOPEDIC SURGERY | MD Rojelio [address] | (Primary Dx); | | | | [address] [place] | [place], [place] | Trochanteric | | | | [place], [place] | [address] | bursitis of right | | | | [address] | | hip; Primary | | | | [phone] | | osteoarthritis of | | | | | | right hip | +--------+ + + + + Social [...] as of this encounter Plan of Treatment + + +--------+ + + | Name | Type | Priori | Associated Diagnoses | Order Schedule | | | | ty | | | + + +--------+ + + | * SHYLA BEASLEY | Outpatient | Routin | Right hip pain | Ordered: 10/28/2017 | | Physiatry - AMB | Referral | e | Trochanteric | | | Referral | | | bursitis of right | | | | | | hip Primary | | | | | | osteoarthritis of | | | | | | right hip | | + + +--------+ + + [...]
--- OUTSIDE RECORDS SUMMARY | ~2019-12-19 | XMS | Encounter Summary ---
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 MD | | |10/14/2016 12:15:18 PM | | |This report has been signed electronically. | | |Number of Addenda: 0 | | |Note Initiated On: 10/14/2016 11:37 AM | | |Total Procedure Duration: 0 hours 16 minutes 1 second | | |Scope In: 11:50:23 AM | | |Scope Out: 12:06:24 PM | | | [facility], [address] [place] [address] | | | [id number] | | + + -+ + +---------+ + + | Performing | Address | City/State/Zipcode | Phone Number | | Organization | | | | + +---------+ + + | [facility] | | | | + +---------+ + + POC Glucose (10/14/2016 11:25 AM PDT) + +-------+ + + + | Component | Value | Ref Range | Performed | Pathologist | | | | | At | Signature | + +-------+ + + + | Glucose, | 93 | 70 - 109 mg/dL | [facility] | | | POC | | | [facility] | | [...] + + | [facility] | [address] | [place], [place] | [phone] | | [facility] | | [address] | | | - LABORATORY | | | | + + + + + documented in this encounter Visit Diagnoses Not on filedocumented in this encounter Administered Medications + +--------+---------+------+------+------+ | Medication Order | MAR | Action | Dose | Rate | Site | | | Action | Date | | | | + +--------+---------+------+------+------+ + +---+ | albuterol 2.5 mg/3 mL nebulizer | | | solution 2.5 mg 2.5 mg, | | | Nebulization, ONCE PRN, Wheezing, | | | Starting Naty 10/14/16 at 1313, For | | | 1 dose, RT will administer., | | | Pre-op | | + +---+ | | | + +---+ | albuterol 2.5 mg/3 mL nebulizer | | | solution 2.5 mg 2.5 mg, | | | Nebulization, ONCE PRN, Wheezing, | | | Starting Naty 10/14/16 at 1314, For | | | 1 dose, Notify anesthesia if | | | patient is wheezing and does not | | | have a history of asthma or COPD | | | or current smoking., | | | Recovery/Phase I | | + +---+ | | | + +---+ | albuterol-ipratropium (DUONEB) | | | 2.5-0.5 mg/3 mL nebulizer | | | solution 3 mL 3 mL, | | | Nebulization, ONCE PRN, Wheezing, | | | Starting Naty 8/17 at 1313, For | | | 1 dose, Pre-op | | + +---+ | | | + +---+ | dextrose 50% injection 12.5-25 | | | g 12.5-25 g, Intravenous, EVERY | | | 15 MIN PRN, Low Blood Sugar, Give | | | 12.5g (25 mL) IV if blood | | | glucose 50-69 mg/dL. Give 25g | | | (50 mL) IV if blood glucose < 50, | | | Starting Naty 10/14/16 at 1313, | | | Repeat in 15 min if blood glucose | | | remains < 70 mg/dL. Repeat | | | blood glucose in 30 min once | | | blood glucose > 70., Pre-op | | + +---+ | | | + +---+ | fentaNYL (PF) injection 25-50 | | | mcg 25-50 mcg, Intravenous, | | | EVERY 15 MIN PRN, Pain, pain, | | | Starting Naty 10/14/16 at 1313, Max | | | total dose 100 mcg., Pre-op | | + +---+ | | | + +---+ | fentaNYL (PF) injection 25-50 | | | mcg 25-50 mcg, Intravenous, | | | EVERY 5 MIN PRN, Pain, Starting | | | Naty 10/14/16 at 1314, Maximum total | | | dose 250 mcg. PACU IV Narcotic | | | Priority: Only use fentanyl for | | | immediate post-op pain (one dose) | | | or breakthrough pain when any | | | other IV narcotics ordered have | | | been ineffective (if ordered). | | | If both morphine and | | | hydromorphone are ordered, use | | | morphine first, and use | | | hydromorphone if morphine | | | ineffective., Recovery/Phase I | | + +---+ | | | + +---+ | HYDROmorphone (DILAUDID) | | | injection 0.2-0.5 mg 0.2-0.5 mg, | | | Intravenous, EVERY 5 MIN PRN, | | | Pain, Starting Naty 10/14/16 at | | | 1314, Maximum total dose 4 mg. | | | PACU IV Narcotic Priority: Only | | | use fentanyl for immediate | | | post-op pain (one dose) or | | | breakthrough pain when any other | | | IV narcotics ordered have been | | | ineffective (if ordered). If | | | both morphine and hydromorphone | | | are ordered, use morphine first, | | | and use hydromorphone if morphine | | | ineffective., Recovery/Phase I | | + +---+ | | | + +---+ | lactated ringers (LR) infusion | | | at 100 mL/hr, Intravenous, | | | CONTINUOUS, Starting Naty 10/14/16 | | | at 1330, Pre-op | | + +---+ | | | + +---+ | lactated ringers (LR) infusion | | | at 10-100 mL/hr, Intravenous, | | | CONTINUOUS, Starting Naty 10/14/16 | | | at 1330, TKO., Pre-op | | + +---+ | | | + +---+ | ondansetron (ZOFRAN) injection | | | 4 mg 4 mg, Oral, EVERY 4 HOURS | | | PRN, Nausea, Vomiting, Starting | | | Naty 10/14/16 at 1314, | | | Recovery/Phase I | | + +---+ | | | + +---+ | ondansetron (ZOFRAN) injection | | | 4 mg 4 mg, Intravenous, ONCE | | | PRN, Nausea, Starting Naty 10/14/16 | | | at 1314, For 1 dose, | | | Recovery/Phase I | | + +---+ | | | + +---+ documented in this encounter
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
--- OUTSIDE RECORDS SUMMARY | ~2019-12-19 | XMS | Encounter Summary ---
Demographics + + + | Address | [address] | | | [place] [address] | + + + | Home Phone [...] Author + + + | Author | [facility] | | | and [place] | + + + | Organization | [facility] | | | [...] Team Providers + +------+ + | Care Morning Show Host Name | Role | Phone | + [...] | occipital | [address] | | | | n | neuralgia | [address] | [place], | | | | | Procedures | [place], | [place] [address] | | | | | [place] IN[place] | [place] [address] | Phone: | | | | | NERV | Phone: | [phone] | | | | | GREGORIO MILLER | [phone] | Fax: | | | | | OCCIPTL [place] | Fax: | [phone] | | | | | BETAMETHASON | [phone] | | | | | | E [...] | | | | | positional | [address] | [facility] Aid | | | | | vertigo | [place], | [address] | | | | | Procedures | [place] [address] | [address] | | | | | 10/25 PEND | Phone: | [address] | | | | | [place] | [phone] | [place], | | | | | | Fax: | [place] [address] | | | | | | [phone] | Phone: | | | | | | | [phone] | | | | | | | Fax: | | | | | | | [phone] | +--------+ + + + + + [...] | | | | | positional | [address] | y [address] | | | | | vertigo | [place], | [address] [place] | | | | | Procedures | [place] [address] | [address] [place] | | | | | 10/25 PEND | Phone: | [place], [place] | | | | | [place] | [phone] | [address] | | | | | | Fax: | Phone: | | | | | | [phone] | [phone] | | | | | | | Fax: | | | | | | | [phone] | +--------+ + + + + + Reason for Visit + + + | Reason | Comments | + + + | Neck Pain | | + + + Encounter Details +--------+---------+ + + + | Date | Type | Department | Care Team | Description | +--------+---------+ + + + | 10/16/ | Office | [facility] | Leonidas Mohr, | Vertigo (Primary | | 2014 | Visit | PHYSIATRY [address] | MD [address] | Dx); Bilateral | | | | [address] | [place], [place] | occipital neuralgia; | | | | [place], [place] | [address] | Chronic daily | | | | [address] | | headache; | | | | [phone] | | Cervicalgia; | | | | [...] documented in this encounter Progress Notes Leonidas Morh MD - 10/16/2014 2:13 PM PDT [facility] PHYSIATRY [address] [facility] [address] OFFICE NOTE LEONIDAS MOHR JR, MD Patient: LUZ MARIA LOCKWOOD Admitting: MR #: [id number] LOC: PT TYPE: Adm Date: 10/16/2014 : [...] Transcribed on 10/16/2014 19:17:28 by hailee job# [id number] Confirmation #: [id number] cc: WICHO STARKEY MD Leonidas Mohr MD - 10/16/2014 1:33 PM PDTThis office note has been dictated. Job ID# [id number] signed by Leonidas Mohr MD at 10/16/2014 [...]
--- OUTSIDE RECORDS SUMMARY | ~2019-12-19 | XMS | Encounter Summary ---
Demographics + + + | Address | [address] | | | [place] [address] | + + + | Home Phone | | + + + | Preferred Language | Unknown | + + + | Marital Status | | + + + | Presybeterian Affiliation | 1013 | + + + | Race | White | + + + | Ethnic Group | Not or | + + + Author + + + | Author | [facility] | | | and [place] | + + + | Organization | [facility] | | | [...] Team Providers + +------+ + | Care Freezer Laboratory Technician Name | Role | Phone | + [...] Leonidas Huddleston, | Bilateral occipital | | 2014 | visit | PHYSIATRY [address] | MD [address] | neuralgia (Primary | | | | [address] | [place], [place] | Dx) | | | | [place], [place] | [address] | | | | | [address] | | | | | | [phone] | | | +--------+ + + + [...] Charmaine Dangelo RN at 02/20/2015 5:58 PM PSTMarshLeonidas MD - 4:18 PM PSTReferring Physician: Leonidas [...]
--- OUTSIDE RECORDS SUMMARY | ~2019-12-19 | XMS | Encounter Summary ---
Demographics + + + | Address | [address] | | | [place] [address] | + + + | Home Phone | | + + + | Preferred Language | Unknown | + + + | Marital Status | | + + + | Nondenominational Affiliation | 1013 | + + + | Race | White | + + + | Ethnic Group | Not or | + + + Author + + + | Author | [facility] | | | and [place] | + + + | Organization | [facility] | | | [...] Team Providers + +------+ + | Care Scouring Train Operator Name | Role | Phone | + +------+ + | Teena Busch NP | PCP | | + +------+ + Encounter Details +--------+---------+ + + + | Date | Type | Department | Care Team | Description | +--------+---------+ + + + | 03/10/ | Office | [facility] | Sundeep Ba PA | CONSUELO on CPAP (Primary | | 2014 | Visit | SLEEP DISORDER [address] | [address] | Dx) | | | | [address] [place] | [place], [place] | | | | | [place] [address] | [address] | | | | | [phone] | | | +--------+---------+ + + + [...] Sundeep Ba PA - 03/10/2015 2:04 PM NICHOLAS"Alma Rosa" has struggled with her compliance since [...] but is having a difficult time. We pollo rodriguez discussed the importance of working toward wearing her CPAP 100% of the time she is asle ep and desensitization to help her adjust to wearing it. I will follow up again in 1 month, sooner prn. Fifteen minutes were spent via phone call, with the majority of time spent in counseling. Sundeep Ba PA-C cc: Teena Busch, TOOL MACHINE SHOP SUPERVISOR-BC P STdocumented in this encounter Plan of Treatment Not on filedocumented as of this encounter Visit Diagnoses + + | Diagnosis | + + | CONSUELO on CPAP - Primary Obstructive sleep apnea (adult) (pediatric) | + + documented in this encounter
--- OUTSIDE RECORDS SUMMARY | ~2019-12-19 | XMS | Encounter Summary ---
Demographics + + + | Address | [address] | | | [place] [address] | + + + | Home Phone | | + + + | Preferred Language | Unknown | + + + | Marital Status | | + + + | Faith Affiliation | 1013 | + + + | Race | White | + + + | Ethnic Group | Not or | + + + Author + + + | Author | [facility] | | | and [place] | + + + | Organization | [facility] | | [...] Team Providers + +------+ + | Care Traveling Construction Superintendent Name | Role | Phone | + +------+ + | Abimael Devlin MD | PCP | | + +------+ + Reason for Visit +--------+--------+ + | Reason | Onset | Comments | | | Date | | +--------+--------+ + | Other | 03/09/ | | | | 2018 | | +--------+--------+ + Encounter Details +--------+ + + + + | Date | Type | Department | Care Team | Description | +--------+ + + + + | 03/09/ | Telephone | [facility] | Andre Ojeda | Other | | 2017 | | ORTHOPEDIC SURGERY | MD [address] | | | | | [address] | [place] | | | | | [place] | [address] | | | | | [address] | | | | | | [phone] | | | +--------+ + + + [...] this encounter Miscellaneous Notes Telephone Encounter - Joanna Sheppard - 03/16/2018 9:19 AM PSTPatient was seen on 03/15. elephone [facility] willian - Mary Silva - 03/10/2018 8:36 AM PSTLMVM for patient to call back, please renae edule patient for a follow up with Dr Ojeda. elephone Encounter - Abby Vaughan, Comparative Sociology Professor - 03/09/20 2:51 PM PSTPlease schedule patient for a follow up. Thank you elephone Encounter - Ruth Palomo - 03/09/2018 11:35 AM PSTPATIENT CALLED AND WANTED TO KNOW IF YOU RECEIVED HER FORM ALICJA T SHE INCLUDED IN A ngmoco CARD TO DR. OJEDA. SHOT LASTED ABOUT 2 DAYS AND WAS SENT TO DR. Balderrama AND SHOT FROM DR. Balderrama DID NOT HELP EITHER. PLEASE CALL AND ADVISE [phone] onically signed by Sylvia Palomo at 03/09/2018 11:37 AM PSTdocumented in this encounter Plan of Treatment Not on filedocumented as of this encounter Visit Diagnoses Not on filedocumented in this encounter"
--- OUTSIDE RECORDS SUMMARY | ~2019-12-19 | XMS | Encounter Summary ---
Demographics + + + | Address | [address] | | | [place] [address] | + + + | Home Phone [...] + + + | Author | [facility] | | | and [place] | + + + | Organization | [facility] | | [...] Team Providers + +------+ + | Care Nurse Intern Name | Role | Phone | + +------+ + | Abimael Devlin MD | PCP | | + +------+ + Encounter Details +--------+ + + + + | Date | Type | Department | Care Team | Description | +--------+ + + + + | 10/17/ | Hospital | [facility] | Andre Caballero | Right hip pain | | 2018 | Encounter | [facility] [address] MD [address] | | | | | [address] [place] | [place], [place] | | | | | [place], [place] | [address] | | | | | [address] | | | | | | [phone] | | | +--------+ + + + [...] | cyclobenzaprine | | | 0 | 20 | | | (FLEXERIL) 5 MG | | | | 18 | | | tablet | | | | | | + + + +---------+ + + | dicyclomine | | | 0 | /24/20 | | | (BENTYL) 10 mg | [...] | 0 | 10/17/19 | | | (IRENKA) [address] | [...] this | | VIEWS | e | 8:28 AM | | procedure are in the | | | | PDT | | results section. | + +--------+ + + + documented in this encounter Results XR Hip Right 2-3 [...]
--- OUTSIDE RECORDS SUMMARY | ~2019-12-19 | XMS | Encounter Summary ---
Demographics + + + | Address | [address] | | | [place] [address] | + + + | Home Phone | | + + + | Preferred Language | Unknown | + + + | Marital Status | | + + + | Jain Affiliation | 1013 | + + + | Race | White | + + + | Ethnic Group | Not or | + + + Author + + + | Author | [facility] | | | and [place] | + + + | Organization | [facility] | | | and [...] Team Providers + +------+ + | Care Tinning Equipment Tender Name | Role | Phone | + +------+ + PCP | Unavailable | + +------+ + Encounter Details +--------+ + + + + | Date | Type | Department | Care Team | Description | +--------+ + + + + | 06/15/ | Hospital | [facility] | Trevor Cárdenas MD | | | 2010 | Encounter | MED CTR XRAY [address] | [address] | | | | | [place] | [place] | | | | | [place] [address] | [address] | | | | | [phone] | | | +--------+ + + + [...] Performed At | + + + | [facility] Diagnostic Imaging Department | [facility] | | [address] [facility] [facility] | [facility] | | E C H O C | DIAG IMG | | A R D I O G R A P H Y R E P O R T HEIGHT: 5'9" | | | WEIGHT: 240# NETWORK SYSTEMS ANALYST: VERONICA REFERRING PHYSICIAN: Dr. Murray | | | Avi CAR DR:RABIA DIAGNOSIS: DYSPNEA | | | | [...] Brendan Swan, | | | MD> 06/19/10 0930 | | + + + + + | Procedure Note | + + | Ever Almazan Conversion - 04/20/2013 2:37 PM [facility] | | Diagnostic Imaging Department | | [address] [facility] [facility] | | | | | | | | | | | | E C H O C A R D I O G R A P H Y R E P O R T | | | | | | HEIGHT: 5'9" WEIGHT: 240# NETWORK SYSTEMS ANALYST: TD | | REFERRING PHYSICIAN: Dr. Trevor Cárdenas READING DR:RABIA | | | | DIAGNOSIS: DYSPNEA [...] | + +---------+ + + | [place] | | | | | TABATHA VYAS | | | | + +---------+ + + documented in this encounter Visit Diagnoses Not on filedocumented in this encounter
--- OUTSIDE RECORDS SUMMARY | ~2019-12-19 | XMS | Encounter Summary ---
Demographics + + + | Address | [address] | | | [place] [address] | + + + | Home Phone | | + + + | Preferred Language | Unknown | + + + | Marital Status | | + + + | Yarsanism Affiliation | 1013 | + + + | Race | White | + + + | Ethnic Group | Not or | + + + Author + + + | Author | [facility] | | | and [place] | + + + | Organization | [facility] | | [...] Team Providers + +------+ + | Care Travel Writer Name | Role | Phone | + +------+ + | Teena Busch NP | PCP | | + +------+ + Reason for Visit +--------+ + | Reason | Comments | +--------+ + | Apnea | | +--------+ + Encounter Details +--------+---------+ + + + | Date | Type | Department | Care Team | Description | +--------+---------+ + + + | 02/11/ | Office | [facility] | Sundeep Ba PA | CONSUELO on CPAP (Primary | | 2015 | Visit | SLEEP DISORDER [address] | [address] | Dx) | | | | [address] [place] | [place] | | | | | [place] [address] | [address] | | | | | [phone] | | | +--------+---------+ + + + [...] +---------+ + + | Blood Pressure | 128/70 | 02/11/2015 2:01 PM | | | | | PST | | + +---------+ + + | Pulse | 76 | 02/11/2015 2:01 PM | | | | | PST | | + +---------+ + + | Temperature | - | - | | + +---------+ + + | Respiratory Rate | 16 | 02/11/2015 2:01 PM | | | | | PST [...] encounter Progress Notes Sundeep Ba PA - 02/11/2015 1:59 PM PST Subjective: Patient ID: Luz Maria Carmona is a 59 y.o. female. HPI last office visit was: 01/28/2015 date of split-night polysomnography: 12/03/2014 AHI: 62.1 RDI: 69.2 O2%: 74% with 27.0 minutes below 88% Machine type: ResMed AirSense 10 with nasal mask obtained from: [employer] in [place] pressure: 9-20 cm Median: 12.4 cm 95%: 12.6 cm maximum: 12.7 cm Nights using CPAP: 3/14 % of nights >4 hours: 0% average usage (all nights): 0:12 average usage (nights used): 1:00 AHI: 59.5 "Alma Rosa" comes in for CPAP compliance. She has used her CPAP 3 of her first 14 nights. Juana campos has had a difficult time tolerating the CPAP for more than an hour and she has not been ab le to fall asleep while wearing it. She says the pressure has caused her nose and mouth to get very dry and irritated. She is having to take it off in order to go to sleep. We discu ssed desensitization to help her with getting more comfortable with her mask and the pressur e. Increasing her humidity and temperature should also help her pressure to feel more comfo rtable to her. We went through each of the settings on the CPAP, to ensure that there is a good understand ing of how to make changes to temperature, humidity and/or the ramp. I increased her humidi ty from 4 to 5 and her temperature from 65 to 80 degrees to help with her dry and irritated nose. She is now comfortable making adjustments to the settings, if necessary. I have discussed the download in detail. This shows that her sleep apnea is not controlled , with an AHI of 59.5, however this is not accurate because she has not fallen asleep with h er CPAP. It also shows that her leaks are controlled. Review of Systems Objective: Physical Exam Assessment: Problem #1: OBSTRUCTIVE SLEEP APNEA ([id number]) She has struggled with wearing her CPAP consistently and with wearing it for any extended p eriod of time. She has not fallen asleep with her CPAP yet because the air has been too dry and cold, which irritated her nose. Plan: She is to continue with CPAP indefinitely. I have increased her humidity to 5 and her temp erature to 80 degrees. I have recommended that she work toward wearing her CPAP 100% of the time she is asleep. I have recommended that she watch television or read while wearing her CPAP for 30-60 prior to going to sleep to help desensitize her to the CPAP. I will follow up again in 1 month, sooner prn. Thirty minutes were spent [id number], wit h the majority of time spent in counseling. Sundeep Ba PA-C cc: VIJAY Lott-DARRYN documented in this enco unter Plan of Treatment Not on filedocumented as of this encounter Visit Diagnoses + + | Diagnosis | + + | CONSUELO on CPAP - Primary Obstructive sleep apnea (adult) (pediatric) | + + documented in this encounter
--- OUTSIDE RECORDS SUMMARY | ~2019-12-19 | XMS | Encounter Summary ---
Demographics + + + | Address | [address] | | | [place] [address] | + + + | Home Phone | | + + + | Preferred Language | Unknown | + + + | Marital Status | | + + + | Protestant Affiliation | 1013 | + + + | Race | White | + + + | Ethnic Group | Not or | + + + Author + + + | Author | [facility] | | | and [place] | + + + | Organization | [facility] | | | and [...] Team Providers + +------+ + | Care Buffing Wheel Raker Name | Role | Phone | + +------+ + | Teena Busch NP | PCP | | + +------+ + Reason for Visit + +--------+ + | Reason | Onset | Comments | | | Date | | + +--------+ + | Medication Refill | 11/23/ | | | | 2016 | | + +--------+ + Encounter Details +--------+--------+ + + + | Date | Type | Department | Care Team | Description | +--------+--------+ + + + | 11/23/ | Refill | [facility] [place] | Leonidas Huddleston, | Medication Refill | | 2015 | | PHYSIATRY [address] | [address] | | | | | [address] | [place] | | | | | [place] | [address] | | | | | [address] | | | | | | [phone] | | | +--------+--------+ + + + [...] this encounter Miscellaneous Notes Telephone Encounter - Ciara Varela RN - 11/25/2015 2:48 PM PDTCalled vanessa go's pharmacy: [facility] - [place] [address] (Pharmacy) and asked about patient's Lyrica. Pharmacy staff states that a prior auth was needed. She was informed that the fax wasn't re ceived, a request for form to be re-faxed has been sent, and fax number given ([phone]) . Called Luz Maria Carmona and she was informed of this information. She verbalized unders tanding. elephone Encounter - Emilia Faust - 11/24/2015 10:13 AM PDTPatient states that Dr. Huddleston pres cribed her Lyrica 150 ct and the pharmacy only gave her 24 ct. She is requesting a new order of 126 ct. Please advise documented in this encounter Plan of Treatment Not on filedocumented as of this encounter Visit Diagnoses Not on filedocumented in this encounter"
--- OUTSIDE RECORDS SUMMARY | ~2019-12-19 | XMS | Encounter Summary ---
Demographics + + + | Address | [address] | | | [place] [address] | + + + | Home Phone [...] | [facility] | | | and [place] | + + + | Organization | [facility] | | | and [...] Team Providers + +------+ + | Care Retrieval Specialist Name | Role | Phone | + [...] | | | | | [address] [place] | | | | | | [address] [place] | | | | | | [address] | | | | | | [phone] | | | +--------+ + + + [...]
--- OUTSIDE RECORDS SUMMARY | ~2019-12-19 | XMS | Encounter Summary ---
Demographics + + + | Address | [address] | | | [place] [address] | + + + | Home Phone [...] + + + | Author | [facility] | | | and [place] | + + + | Organization | [facility] | | [...] Team Providers + +------+ + | Care Quality Supervisor Name | Role | Phone | + +------+ + | Abimael Devlin MD | PCP | | + +------+ + Reason for Visit +--------+--------+ + | Reason | Onset | Comments | | | Date | | +--------+--------+ + | Other | 10/01/ | | | | 2016 | | +--------+--------+ + Encounter Details +--------+ + + + + | Date | Type | Department | Care Team | Description | +--------+ + + + + | 10/01/ | Telephone | [facility] [place] | Patrick England MD | Other | | 2016 | | GASTROENTEROLOGY | [address], [place] | | | | | [address] [place] | [address] [place], [place] | | | | | [address] [place], [place] | [address] | | | | | [address] | | | | | | [phone] | | | +--------+ + + + [...] Telephone Encounter - Jenni Lake RN - 10/01/2016 10:57 AM PDTPatient calls garcia lou a different bowel prep ordered. Suprep not covered by Medicaid GoLYTELY ordered for her at right aid in [place] 10:5 7 AM PDTdocumented in this encounter Plan of Treatment Not on filedocumented as of this encounter Visit Diagnoses Not on filedocumented in this encounter"
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
--- OUTSIDE RECORDS SUMMARY | ~2019-12-19 | XMS | Encounter Summary ---
Demographics + + + | Address | [address] | | | [place] [address] | + + + | Home Phone [...] | [facility] | | | and [place] | + + + | Organization | [facility] | | [...] Team Providers + +------+ + | Care Secondary Connector Armature Name | Role | Phone | + +------+ + | Abimael Devlin MD | PCP | | + +------+ + Encounter Details +--------+ + + + + | Date | Type | Department | Care Team | Description | +--------+ + + + + | 04/03/ | Orders Only | [facility] | Max Gillette, | | | 2014 | | CARDIOLOGY CHEN | [address] | | | | | NUC MED [address] | [place], | | | | | [address] | [place] [address] | | | | | [place] | [phone] | | | | | [address] | | | | | | [phone] | | | +--------+ + + + [...] | + +--------+ + + + | NM NUCLEAR STRESS | Routin | 04/03/2014 | | Results for this | | TEST (PHARMACOLOGIC | e | 4:09 PM | | procedure are in the | | - VASODILATOR) | | PST | | results section. | + +--------+ + + + documented in this encounter Results NM Nuclear Stress Test (Vasodilator) (04/03/2014 4:09 PM PST) + + | Specimen | + + | | + + + + + | Impressions | Performed At | + + + | This is a normal, low risk myocardial perfusion study, with no | | | evidence of ischemia. There is normal left ventricular systolic | | | function Max Gillette MD | | + + + + + + | Narrative | Performed At | + + + | [facility] Nuclear Lexiscan Stress Test | | | INDICATION FOR TEST: 58 year old female being evaluated for chest | | | tightness. RISK FACTORS: hypertension, diabetes mellitus, family | | | history, obesity, tobacco dependency PROCEDURE: 9.3 mCi of 99m Tc | | | Myoview was given intravenously for rest images. The patient received | | | 0.4 mg of Lexiscan intravenously. At 35 seconds 29.4 mCi of 99m Tc | | | Myoview was given intravenously for stress images, and 50 mg of | | | aminophylline intravenously for post infusion. Effective Dose | | | Equivalent: 13.2 mSv. REST DATA: HR: 71 bmp BP: 110 / 71. | | | Resting EKG showed normal sinus rhythm, with minimal, nonspecific T | | | wave inversions in aVL STRESS DATA: Peak heart rate 98 bpm, Peak | | | BP: 121/63. Symptoms headache, nausea, and chest pain 04/23 Stress EKG | | | showed no changes from baseline. EJECTION FRACTION: Rest EF: 66% | | | Stress EF: 73% IMAGIN. The quality of the study is good. | | | 2. SPECT images showed normal tracer uptake in all myocardial | | | segments, with no evidence of scarring or ischemia on stress images. | | | There is decreased tracer uptake in the inferior wall on resting | | | images, due to subtraction artifact from adjacent GI tracer uptake, | | | as well as some patient motion, which is seen on the raw images during | | | image acquisition.. (SSS: 0 SRS: 0 SDS: 0 TID: 0.73). 3. Gated | | | SPECT images showed normal, symmetrical contractility in all left | | | ventricular segments, with the computer generated ejection fraction is | | | 66% on resting images, and 73% on stress images. There is no evidence | | | of transient ischemic dilatation. 4. The RV function appears | | | normal, as seen on limited views. 5. There is no previous test | | | available for comparison . | | + + + + + | Procedure Note | + + | Tha, Rad Conversion - 11/03/2018 12:23 PM [facility] | | Lexiscan Stress Test INDICATION FOR TEST: 58 year old female being evaluated for chest | | tightness. RISK FACTORS: hypertension, diabetes mellitus, family history, obesity, | | tobacco dependency PROCEDURE: 9.3 mCi of 99m Tc Myoview was given intravenously for rest | | images. The patient received 0.4 mg of Lexiscan intravenously. At 35 seconds 29.4 mCi | | of 99m Tc Myoview was given intravenously for stress images, and 50 mg of aminophylline | | intravenously for post infusion. Effective Dose Equivalent: 13.2 mSv. REST DATA: HR: 71 | | bmp BP: 110 / 71. Resting EKG showed normal sinus rhythm, with minimal, nonspecific T | | wave inversions in aVL STRESS DATA: Peak heart rate 98 bpm, Peak BP: 121/63. Symptoms | | headache, nausea, and chest pain /10 Stress EKG showed no changes from baseline. | | EJECTION FRACTION: Rest EF: 66% Stress EF: 73% IMAGIN. The quality of the study is | | good.2. SPECT images showed normal tracer uptake in all myocardial segments, with no | | evidence of scarring or ischemia on stress images. There is decreased tracer uptake in | | the inferior wall on resting images, due to subtraction artifact from adjacent GI tracer | | uptake, as well as some patient motion, which is seen on the raw images during image | | acquisition.. (SSS: 0 SRS: 0 SDS: 0 TID: 0.73).3. Gated SPECT images showed normal, | | symmetrical contractility in all left ventricular segments, with the computer generated | | ejection fraction is 66% on resting images, and 73% on stress images. There is no | | evidence of transient ischemic dilatation.4. The RV function appears normal, as seen on | | limited views.5. There is no previous test available for comparison . IMPRESSION: | | This is a normal, low risk myocardial perfusion study, with no evidence of ischemia. | | There is normal left ventricular systolic function Max Gillette MD Electronically | | signed by Max Gillette MD on 04/03/2014 7:00 PM | |5. There is no previous test available for comparison . | | | |IMPRESSION: | |This is a normal, low risk myocardial perfusion study, with no evidence of ischemia. There is normal left ventricular systolic function | | | | | |Max Gillette MD | | | | | + + documented in this encounter Visit Diagnoses Not on filedocumented in this encounter"
--- OUTSIDE RECORDS SUMMARY | ~2019-12-19 | XMS | Encounter Summary ---
Demographics + + + | Address | [address] | | | [place] [address] | + + + | Home Phone [...] + + + | Author | [facility] | | | and [place] | + + + | Organization | [facility] | | | [...] Team Providers + +------+ + | Care Knuckler Name | Role | Phone | + +------+ + PCP | Unavailable | + +------+ + Encounter Details +--------+ + + + + | Date | Type | Department | Care Team | Description | +--------+ + + + + | 01/08/ | Hospital | [facility] | | | | 2012 | Encounter | MED CTR XRAY [address] | | | | | | [address] | | | | | | [place] [address] | | | | | | [phone] | | | +--------+ + + + [...] + + + +---------+ + + | acetaminophen | Take 500 mg by mouth | | 0 | 08/20/19 | | | (ACETAMINOPHEN EXTRA | 4 times daily as | | | 12 | 5 | | STRENGTH) 500 mg | needed. | | | | | | tablet | | | | | | + + + +---------+ + + | albuterol | Inhale one two puffs | | 0 | 08/20/19 | | | (VENTOLIN HFA) 90 | by mouth four times | | | 12 | 5 | | mcg/puff inhaler | daily as needed | | | | | + + + +---------+ + + | Calcium | Take by mouth 2 | | 0 | 08/20/19 | | | Carbonate-Vitamin D | times daily. | | | 12 | 8 | | 600-200 MG-UNIT TABS | | | | | | + + + +---------+ + + | carvedilol (COREG) | One tablet by mouth | | 0 | 08/20/19 | | | 25 mg tablet | twice daily | | | 12 | 5 | + + + +---------+ + + | diazepam (VALIUM) | Take 10 mg by mouth | | 0 | 08/20/19 | | | 10 MG tablet | 3 times daily as | | | 12 | 5 | | | needed. | | | | | + + + +---------+ + + | estradiol | Take 1 mg by mouth | | 0 | 08/20/19 | | | (ESTRACE) 1 mg | Daily. | | | 12 | 5 | | tablet | | | | | | + + + +---------+ + + | ferrous sulfate | Take 325 mg by mouth | | 0 | 08/20/19 | | | 325 mg tablet | 2 times daily. | | | 12 | 5 | + + + +---------+ + + | | One - two tablets by | | 0 | 08/20/19 | | | hydrocodone-acetamin | mouth every four | | | 12 | 5 | | ophen (VICODIN ES) | hours as needed | | | | | | 7.5-750 MG per | | | | | | [...] + + + +---------+ + + | ziprasidone | One capsule by mouth | | 0 | 08/20/19 | | | (GEODON) 80 MG | morning, Two | | | 12 | 5 | | capsule | capsules by mouth | | | | | | | evening | | | | | + + + +---------+ + + documented as of this encounter Plan of Treatment Not on filedocumented as of this encounter Procedures + +--------+ + + + | Procedure Name | Priori | Date/Time | Associated Diagnosis | Comments | | | ty | | | | + +--------+ + + + | MRI LUMBAR SPINE W | Routin | 01/08/2013 | | Results for this | | WO CONTRAST | e | 1:55 PM | | procedure are in the | | | | PDT | | results section. | + +--------+ + + + documented in this encounter Results MRI Lumbar Spine w wo Contrast (01/08/2013 1:55 PM PDT) + + | Specimen | + + | | + + + + + | Narrative | Performed At | + + + | [facility] | [place] | | Department [address] | [facility] | | [ rep [address]] [ rep [facility] | | [facility]] Signed | - IMAGING | | | | | Patient Name: LUZ MARIA LOCKWOOD | | | Physician: AVEL : 1955 Age: 57 Sex: F Unit | | | #: [id number] Exam Date: 01/08/13 Location: | | | [facility] Report #: [id number] Page: | | | %(RAD)RES..mtdd.print.filter("pg") of %(RAD) | | | RES..mtdd.print.filter("tpg") | | | | | | Accession Number: [id number] | | | MRI LUMBAR SPINE CLINICAL HISTORY: BILATERAL MUSCLE | | | WEAKNESS. BILATERAL LEG PAINS. BACK PAIN. | | | COMPARISON: None available at this institution. | | | TECHNIQUE: Multiplanar multisequence MR imaging is performed of the | | | lumbar spine prior to and following the intravenous administration | | | of 10 mL of Gadavist. FINDINGS: Five lumbar-type | | | vertebral bodies are assumed for counting purposes. Transpedicular | | | screws and vertical rods are in place fusing L4 and L5. This | | | creates some artifact. There is disk narrowing and endplate | | | degenerative change at L4-5. They are Modic type II endplate | | | changes. The L4- 5 disk level does not appear to be fused or to | | | contain an interbody graft. No spondylolisthesis. No compression | | | deformities. The conus is seen terminating at the T12-L1 level. | | | The visible distal cord is normal in size, signal, and contour. | | | The following levels are evaluated in the axial plane: | | | L2-3: There is a small posterior disk protrusion. | | | There is a small left foraminal component of disk protrusion. | | | There is mild facet arthrosis bilaterally. Mild narrowing of the | | | central spinal canal due to associated ligamentum flavum redundancy. | | | Mild left neural foraminal narrowing. L3-4: Mild | | | facet arthrosis bilaterally. No significant disk bulge or | | | protrusion. The neural foramen and the central spinal canal are | | | patent. L4-5: Peripheral marginal osteophytes left | | | greater than right. No posterior disk protrusion. The central | | | spinal canal and subarticular recesses are patent. There is mild | | | left neural foraminal narrowing. The right is patent. | | | L5-S1: No significant disk bulge or protrusion. Mild facet | | | arthrosis. The central spinal canal and the neural foramina are | | | patent. Seen on only the axial sequence is central | | | disk protrusion posteriorly at L1-2 not significantly narrowing the | | | central spinal canal. The visible intraabdominal | | | contents are unremarkable. Following contrast | | | administration, there is enhancement of edema in the posterior spinous | | | soft tissues seen posterior to the level of T12 through L4. | | | Increased signal around the upper margins of the hardware at L3-4 | | | and L5-S1 could be perifacet-related enhancement and/or | | | artifact-related signal alteration. No areas of abnormal osseous | | | enhancement. IMPRESSION: 1. OPERATIVE CHANGES | | | AT L4-5. THE L4-5 DISK LEVEL IS NOT FUSED. 2. MILD | | | DISK DISEASE AT L2-3 WITHOUT SIGNIFICANT COMPROMISE OF THE CENTRAL | | | SPINAL CANAL OR NEURAL FORAMINA. 3. NEURAL | | | FORAMINA AT THE OPERATIVE LEVEL L4-5 ARE PATENT WITH MILD NARROWING ON | | | THE LEFT. 4. NO IDENTIFIABLE AREA OF ABNORMAL | | | ENHANCEMENT IN THE PARASPINOUS MUSCULATURE, CENTRAL SPINAL CANAL , OR | | | REGIONAL OSSEOUS STRUCTURES. Dictated Date/Time: | | | 01/08/2013 13:55 Transcribed Date/Time: 01/08/2013 17:54 | | | Medicaid Biller: <<Signature on File>> | | | | | | Patrick Olivares MD01/09/13 0232 <Electronically signed by Patrick Cox | | | Marshall WINTERS> Patrick Olivares MD 01/08/13 1749 | | | Medicaid Biller: Zipari Nuxgmndhckdvf91/28/13 8585 | | | MD Trevor Blue MD | | + + + + + + + + | Performing | Address | City/State/Zipcode | Phone Number | | Organization | | | | + + + + + | [facility] | [address] | [place] | [phone] | | [facility] | | [id number] | | | - IMAGING | | | | + + + + + documented in this encounter Visit Diagnoses Not on filedocumented in this encounter
--- OUTSIDE RECORDS SUMMARY | ~2019-12-19 | XMS | Encounter Summary ---
Demographics + + + | Address | [address] | | | [place] [address] | + + + | Home Phone | | + + + | Preferred Language | Unknown | + + + | Marital Status | | + + + | Oriental Orthodox Affiliation | 1013 | + + + | Race | White | + + + | Ethnic Group | Not or | + + + Author + + + | Author | [facility] | | | and [place] | + + + | Organization | [facility] | | | [...] Team Providers + +------+ + | Care Toolmaker Helper Name | Role | Phone | + +------+ + PCP | Unavailable | + +------+ + Encounter Details +--------+ + + + + | Date | Type | Department | Care Team | Description | +--------+ + + + + | 01/20/ | Hospital | [facility] | Hans Sheikh | CONVULSIONS NEC | | 2004 | Encounter | CONVERSION DEP [address] | [address] | ([facility]) | | | | [address] | [place] | | | | | [place] | [address] | | | | | [address] | [phone] | | | | | [phone] | | | +--------+ + + + [...] + | Diagnosis | + + | Other convulsions | + + documented in this encounter"
--- OUTSIDE RECORDS SUMMARY | ~2019-12-19 | XMS | Encounter Summary ---
Demographics + + + | Address | [address] | | | [place] [address] | + + + | Home Phone | | + + + | Preferred Language | Unknown | + + + | Marital Status | | + + + | Roman Catholic Affiliation | 1013 | + + + [...] Team Providers + +------+ + | Care Ore Fielder Name | Role | Phone | + +------+ + | Wicho Starkey MD | PCP | | + +------+ + Encounter Details +--------+ + + + + | Date | Type | Department | Care Team | Description | +--------+ + + + + | 12/04/ | Hospital | [facility] | Leonidas Huddleston, | Right knee pain; | | 2014 | Encounter | MED CTR XRAY [address] | MD [address] | Swelling of right | | | | [place] | [place], [place] | knee joint | | | | [place] [address] | [address] | | | | | [phone] | | | +--------+ + + + [...] by mouth | | 0 | | 08/06/201 | | (ABILIFY) 5 mg | Daily. [...] + +--------+ + + + | XR KNEE RIGHT 3 VW | Routin | 12/04/2014 | Right knee pain | Results for this | | | e | 3:51 PM | Swelling of right | procedure are in the | | | | PDT | knee joint | results section. | + +--------+ + + + documented in this encounter Results XR Knee Right 3 Vw (12/04/2014 3:51 PM PDT) + + | Specimen | + + | | + + + + + | Narrative | Performed At | + + + | EXAM: XR KNEE RIGHT 3 VW dated 12/04/2014 3:15 PM HISTORY:acute | [facility] | | right knee pain after twisting knee, with right knee swelling | Kaya [place] | | COMPARISON: None. FINDINGS:Frontal weightbearing views of both [facility] | | knees. A lateral view of the right knee. Very mild medial and | - IMAGING | | lateral degenerative changes in the left knee. Left knee | | | chondrocalcinosis. Right: Mild medial and lateral degenerative | | | changes in the right knee. Mild medial joint narrowing. Medial | | | and lateral chondrocalcinosis. Heterogeneity in the subchondral | | | bone of the patella suggests chronic overlying cartilage disease. No | | | significant joint effusion. The soft tissues are unremarkable. | | | IMPRESSION - No acute osseous abnormality in the right knee. | | | Symmetric degenerative changes in both knees. In the right knee this | | | is tricompartmental. Chondrocalcinosis bilaterally. Dictated | | | and Signed by: Patrick Olivares MD Electronically signed: | | | 12/04/2014 4:57 PM | | + + + + + | Procedure Note | + + | Tha, Rad Results In - 12/04/2014 5:00 PM PDT EXAM: XR KNEE RIGHT 3 VW dated | | 12/04/2014 3:15 PMHISTORY:acute right knee pain after twisting knee, with right knee | | swellingCOMPARISON: None.FINDINGS:Frontal weightbearing views of both knees. A lateral | | view of the rightknee.Very mild medial and lateral degenerative changes in the left | | knee. Left kneechondrocalcinosis.Right:Mild medial and lateral degenerative changes in | | the right knee. Mild medialjoint narrowing. Medial and lateral chondrocalcinosis. | | Heterogeneity in thesubchondral bone of the patella suggests chronic overlying cartilage | | disease. No significant joint effusion. The soft tissues are unremarkable.IMPRESSION | | -No acute osseous abnormality in the right knee.Symmetric degenerative changes in both | | knees. In the right knee this istricompartmental.Chondrocalcinosis bilaterally.Dictated | | and Signed by: Patrick Olivares MD Electronically signed: 12/04/2014 4:57 PM | | | |Right: | | | |Mild medial and lateral degenerative changes in the right knee. Mild medial | |joint narrowing. Medial and lateral chondrocalcinosis. Heterogeneity in the | |subchondral bone of the patella suggests chronic overlying cartilage disease. | |No significant joint effusion. The soft tissues are unremarkable. | | | |IMPRESSION - | | | |No acute osseous abnormality in the right knee. | | | |Symmetric degenerative changes in both knees. In the right knee this is | |tricompartmental. | | | |Chondrocalcinosis bilaterally. | | | |Dictated and Signed by: Patrick Olivares MD | | Electronically signed: 12/04/2014 4:57 PM | + + + + + + + | Performing | Address | City/State/Zipcode | Phone Number | | Organization | | | | + + + + + | [facility] | [address] | [place] | [phone] | | [facility] | | [address] | | | - IMAGING | | [...]
--- OUTSIDE RECORDS SUMMARY | ~2019-12-19 | XMS | Encounter Summary ---
Demographics + + + | Address | [address] | | | [place] [address] | + + + | Home Phone | | + + + | Preferred Language | Unknown | + + + | Marital Status | | + + + | Orthodoxy Affiliation | 1013 | + + + | Race | White | + + + | Ethnic Group | Not or | + + + Author + + + | Author | [facility] | | | and [place] | + + + | Organization | [facility] | | | [...] Team Providers + +------+ + | Care Rn Integrity Name | Role | Phone | + +------+ + | Abimael Devlin MD | PCP | | + +------+ + Encounter Details +--------+ + + + + | Date | Type | Department | Care Team | Description | +--------+ + + + + | 09/30/ | Episode | [facility] | [place] | | | 2017 | Changes | GASTROENTEROLOGY | M, RN | | | | | [address] | | | | | | [address] [place] | | | | | | [address] | | | | | | [phone] | | | +--------+ + + + [...]
--- OUTSIDE RECORDS SUMMARY | ~2019-12-19 | XMS | Encounter Summary ---
Demographics + + + | Address | [address] | | | [place] [address] | + + + | Home Phone [...] Team Providers + +------+ + | Care Renal Medicine Physician Name | Role | Phone | + [...] + + | 07/13/ | Office | [facility] | Sundeep Ba PA | CONSUELO on CPAP (Primary | | 2016 | Visit | SLEEP DISORDER [address] | [address] | Dx) | | | | [address] [place] | [place] | | | | | [place] [address] | [address] | | | | | [phone] | | | +--------+---------+ + + + [...] AirSense 10 with nasal mask obtained from: [employer] in [place] pressure: 9-20 cm (lowered to 4-8 cm [...] Exam Assessment: Problem #1: OBSTRUCTIVE SLEEP APNEA ([id number]) This is controlled with CPAP. She had [...] months, sooner prn. Fifteen minutes were spent [id number], w ith the majority of time spent in counseling. Sundeep Ba PA-C cc: Teena Busch FASHION INTERN-DARRYN documented in this enco unter Plan of Treatment Not on filedocumented as of this encounter Visit Diagnoses + + | Diagnosis | + + | CONSUELO on CPAP - Primary Obstructive sleep apnea (adult) (pediatric) | + + documented in this encounter
--- OUTSIDE RECORDS SUMMARY | ~2019-12-19 | XMS | Encounter Summary ---
Demographics + + + | Address | [address] | | | [place] [address] | + + + | Home Phone [...] Team Providers + +------+ + | Care Parks Recreation Director Name | Role | Phone | [...] Closed | | Radiology | Diagnoses | [place], | [facility] | | | | | Right knee | Leonidas Irving MD | [address] | | | | | pain | [address] | [place], | | | | | Swelling of | [address] | [place] | | | | | right knee | [place], | [address] | | | | | joint | [place] [address] | Phone: | | | | | Procedures | Phone: | [phone] | | | | | MRI Knee | [phone] | Fax: | | | | | Right wo | Fax: | [phone] | | | | | Contrast | [phone] | | +--------+--------+ + + + + Reason for Visit + + + | Reason | Comments | + + + | Neck Pain | | + + + Encounter Details +--------+---------+ + + + | Date | Type | Department | Care Team | Description | +--------+---------+ + + + | 12/02/ | Office | [facility] [place] | Leonidas Huddleston, | Bilateral occipital | | 2015 | Visit | PHYSIATRY [address] | [address] | neuralgia (Primary | | | | [address] | [place] | Dx); Chronic daily | | | | [place] | [address] | headache; | | | | [address] | | Fibromyalgia; Right | | | | [phone] | | knee pain; Swelling | | | | | | of right knee joint; | | | | | | Cervical [...] + + + | Blood Pressure | 152/86 | 12/02/2014 11:01 AM | | | | | PDT | | + + + + + | Pulse | 72 | 12/02/2014 11:01 AM | | | | | PDT | | + + + + + | Temperature | - | - | | + + + + + | Respiratory Rate | 18 | 12/02/2014 11:01 AM | | | | | PDT | | + + + + + | Oxygen Saturation | - | - | | + + + + + | Inhaled Oxygen | - | - | | | Concentration | | | | + + + + + | Weight | 99.8 kg (220 lb) | 12/02/2014 11:01 AM | | | | | PDT | | + + + + + | Height | 174 cm (5' 8.5") | 12/02/2014 11:01 AM | | | | | PDT | | + + + + + | Body Mass Index | 32.96 | 12/02/2014 11:01 AM | | | | | PDT | | + + + + + documented in this encounter Patient Instructions Patient Instructions Leonidas Huddleston MD - 12/02/2014 11:28 AM PDTIt may be worth applying for [facility] care at the hospital to see if they will cover greater occipital nerve blocks. Stop Gabapentin and start new medication Lyrica 75 mg three times per day. X-rays have been requested. Please go to the x-ray department after your appointment to co mplete these x-rays. The results of your x-rays will be reviewed at your next appointment. If your x-rays demonstrate any emergent results, the clinic will contact you. A MRI has been requested. Please complete the requested imaging. Within one week, you krista uld receive a call to schedule your MRI. If you have not heard from anyone within one week, please call the clinic. The results of your MRI will be reviewed at your next appointment. If your MRI demonstrates any emergent results, the clinic will contact you. If knee pain improves you can cancel MRI of the knee. If nerve blocks can not be done by [facility] we will request Botox injections for chroni c daily headache. We may taper up Lyrica more in the future. documented in this encounter Progress Notes Leonidas Huddleston MD - 12/02/2014 12:38 PM PDT [facility] PHYSIATRY [address] [facility] [address] OFFICE NOTE LEONIDAS HUDDLESTON JR, MD Patient: LUZ MARIA LOCKWOOD Admitting: MR #: [id number] LOC: PT TYPE: Adm Date: 12/02/2014 : 1955 PROGRESS NOTE DATE OF : 1955. PRIMARY CARE PROVIDER: Wicho Starkey MD. DATE OF SERVICE: 12/02/2014. PATIENT IDENTIFICATION: A 59-year-old female with headaches, fibromyalgia, neck pain, rig ht knee pain. HISTORY OF PRESENT ILLNESS: The patient was last seen by me approximately 6 weeks ago. A t that time, it was felt that she had greater occipital neuralgia. She had greater occipit al nerve blocks requested. Her insurance denied coverage for these injections, so, unfort unately, they were not performed. She has tried going fragrance free. She indicates that since being fragrance free, her migraine headaches are reduced. She reports that severity of headache seems to be overall reduced. Unfortunately, she still continues to have heada ches all day every day. She reports that in 30 days of a month, she will have at least 29 days with headache, if not 30. She reports that when headaches are at their worst, she ma y experience nausea. She reports that she still has had vomiting 2 times within the last m onth. She reports that she has light sensitivity and sound sensitivity with headache exace rbations on a daily basis. She reports that her headaches are still severe or quite bother some 4 or more hours a day 15 or more days per month. She indicates that headaches seem to start in the occipital region, radiate up over the top of the head. She indicates that h eadaches are bilateral. She denies any recent aura with headaches. She has been on gabape ntin shelter. She is not sure that it offers any benefit. She reports that recently she tried 150 mg of Lyrica. She reports that it seemed to be very helpful. She reports that she was prescribed 75 mg by her doctor. She tried taking the medication. It seemed less e ffective than the 150 mg that she took once. She is wondering if she could be on Lyrica. Once again, she reports that she has not been on Lyrica recently. She reports new right knee pain, knee pain started around 3-4 days ago. She missed a step, twisted her knee, her knee gave out on her. She reports that knee pain is 8/10 on a numer ical pain scale. Pain is constant in timing. Pain is dull at rest and sharp with any move ment. She reports that her knee gave way on her and continues to give way on occasion. Sh beth reports that she can barely walk on the knee. She reports that on a few occasions, the hammad heaton feels like it locks in place and it takes her a second to get the knee moving again. S he reports that she has had swelling over the knee. She has had some bruising over the kn ee and some discoloration of the skin in the right knee since the twist and fall. She has been using rest. She has been elevating the knee. She tried using ice. She tried using c ompression, but it made the knee feel worse. She reports that with compression, she starte d getting increased swelling in the foreleg and foot, so she stopped using compression. S he is wondering what more may be done for her right knee pain. ALLERGIES: ALPRAZOLAM, PRAZOSIN, QUETIAPINE, FUMARATE. CURRENT MEDICATIONS: Abilify. Calcium carbonate. Valium 2 mg every 6 hours as needed. Cymbalta 60 mg daily. Lamictal 200 mg 1 in the morning, 2 in the evening. Glucophage 1000 mg 2 times daily. Naproxen 375 mg twice per day as needed. Prilosec 40 mg daily. Verapamil 180 mg sustained release once daily. Gabapentin 300 mg 2 capsules 3 times per day. REVIEW OF SYSTEMS: The patient denies nausea, vomiting, diarrhea, constipation, fever, ch ills, shortness of breath, or chest pain at this time. She has had some nausea and vomitin g with headaches in the last month. She denies skin breakdown or rash, denies incontinence of bowel or bladder. She reports neck muscle tightness. She reports headache pain that starts in the occipital region and radiates up over the top of the head bilaterally. All o ther review of systems negative. PHYSICAL EXAMINATION: VITAL SIGNS: Heart rate 72, respiratory rate 18, blood pressure 152/86, weight 220 pounds , height 5 feet 8-1/2 inches. GENERAL: No acute distress, alert and oriented to person, place, time and situation. HEENT: Extraocular muscles intact. Sclerae are clear. NECK: Limited range of motion. Increased tone over cervical paraspinal muscles. Severe tenderness to palpation over greater occipital nerves. Palpation of the greater occipital n erves immediately reproduces her headache symptoms bilaterally. EXTREMITIES: Exam reveals no clubbing, cyanosis, or edema in all 4 extremities. Right kn ee examination demonstrates bruising discoloration along the medial joint line of the right knee. Varus and valgus stress test causes some discomfort of the knee. Anterior and post erior drawer test negative in the right knee. Patellar ballottement test causes some disc omfort. Pivot shift test positive. Fibromyalgia tender point examination demonstrates 15 positive fibromyalgia tender points out of 18. NEUROLOGIC: Exam demonstrates intact memory, concentration, speech. Cranial nerves intact . Sensory intact in upper and lower extremities. Reflexes normal over biceps and triceps o f both upper extremities. Reflexes normal over patellar and Achilles of both lower extremit ies. Coordination intact in all 4 extremities. Strength 5/5 in both upper extremities wit h biceps, triceps, wrist dorsiflexion, finger abduction and hand photogrammetrist. DATABASE: No new imaging or laboratory data available for review at this time. ASSESSMENT: 1. Bilateral greater occipital neuralgia, ICD-10 M54.8. 2. Chronic daily headaches, ICD- 10 R51. 3. Fibromyalgia, ICD-10 M79.7. 4. Right knee pain, ICD-10 M25.561. 5. Swelling of right knee, ICD-10 M25.461. 6. Cervical spinal stenosis, ICD-10 M48.02. 7. Status post cervical fusion, ICD-10 Z98.1. PLAN: The patient still has greater occipital neuralgia. The treatment of choice is grea ter occipital nerve blocks. These have been denied by her insurance. At this time, I am a sking her to go to the [facility] care department of our hospital and request application for [facility] care. We discussed that if she qualifies, hopefully we can provide this type of p rocedure for her through [facility] from the hospital. We discussed that she may or may not q ualify for the [facility] care. If she is approved for [facility] care, we will plan to move for price with greater occipital nerve blocks through [facility] care. If she cannot receive the medical center care, she will return to clinic in the future. We would then consider Botox chemodener vation of facial and neck innervated muscles under needle EMG guidance for the treatment of chronic daily headaches. She has been on gabapentin shelter. She does not believe it is helping. We will go ahea d and discontinue the medication. She has tried Lyrica samples in the past with some benef it. She will transition directly from gabapentin to Lyrica. She will start taking Lyrica 75 mg 1 capsule 3 times per day. Since we are trying to treat cervical spinal stenosis an d fibromyalgia, headaches, we may further taper up Lyrica in the future. Therapeutic dose of Lyrica is usually around 300 mg per day. May consider tapering up to 75 mg 2 capsules t wice per day in the future. Regarding her right knee pain, she had recent right knee injury. She has swelling and dis coloration of the knee, suspect some internal bleeding in the knee. I am requesting a knee x-ray to evaluate for fracture. She is asked to complete this today. I am also requestin g right knee MRI to evaluate for suspected meniscal tear. She will return to the clinic a fter imaging has been completed to review the results of her x-ray and MRI. We discussed t hat if a meniscal tear is evident, we may consider orthopedic surgical consultation. In summary, she has chronic daily headaches. They have been slightly improved by going fr agrance free. She would benefit from greater occipital nerve blocks. Hopefully, we can pr ovide these for her. If she cannot receive approval for [facility] care, we will consider glen ating her chronic daily headaches with Botox chemodenervation. Regarding her knee, she wi ll have x-ray, MRI and return to the clinic. Thank you for allowing me to be involved in the care of your patient. If you have any ques tions regarding the care of Ms. Lockwood, please do not hesitate to call. LEONIDAS HUDDLESTON JR, MD Dictated by LEONIDAS HUDDLESTON JR, MD 12/02/2014 12:38:26 Transcribed on 12/02/2014 14:48:31 by [email or web address] job# [id number] Confirmation #: [id number] cc: WICHO STARKEY MD Leonidas Huddleston MD - 12/02/2014 11:33 AM PDTThis office note has been dictated. Job ID# [id number] signed by Leonidas Huddleston MD at 12/02/2014 12:38 PM PDTdocumented in this encounter Plan of Treatment Not on filedocumented as of this encounter Results MRI Knee Right wo Contrast (12/10/2014 11:30 AM PDT) + + | Specimen | + + | | + + + + + | Narrative | Performed At | + + + | MRI KNEE RIGHT WO CONTRAST 12/10/2014 10:57 AM HISTORY: Acute | [facility] | | right knee pain with right knee swelling. COMPARISON: Right knee | [facility] | | x-ray 12/04/2014. PROTOCOL: Axial proton density fat sat, sagittal | [facility] | | proton density, coronal proton [...] + + | NURYE ST[facility] | [address] | [place] | [phone] | | [facility] | | [address] | | | - IMAGING | | | | + + + + + XR Knee Right 3 Vw (12/04/2014 3:51 PM PDT) + + | Specimen | + + | | + + + + + | Narrative | Performed At | + + + | EXAM: XR KNEE RIGHT 3 VW dated 12/04/2014 3:15 PM HISTORY:acute | [facility] | | right knee pain after twisting knee, with right knee swelling | . [facility] | | COMPARISON: None. FINDINGS:Frontal weightbearing views of both | [facility] | | knees. A lateral view of [...] + | [facility] | [address] | [place] | [phone] | | [facility] | | [address] | | | - IMAGING | | | | + + + + + documented in this encounter Visit Diagnoses + + | Diagnosis | + + | Bilateral occipital neuralgia - Primary Other syndromes affecting cervical region | + + | Chronic daily headache Headache | + + | Fibromyalgia Mylagia and myositis, unspecified | + + | Right knee pain Pain in joint, lower leg | + + | Swelling of right knee joint Effusion of lower leg joint | + + | Cervical spinal stenosis Spinal stenosis in cervical region | + + | Status post cervical spinal fusion Arthrodesis status | + + documented in this encounter
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
--- OUTSIDE RECORDS SUMMARY | ~2019-12-19 | XMS | Encounter Summary ---
Demographics + + + | Address | [address] | | | [place] [address] | + + + | Home Phone [...] + | Author | [facility] | | | and [place] | + + + | Organization | [facility] | | | and [...] Team Providers + +------+ + | Care Corporate Security Manager Name | Role | Phone | + +------+ + | Wicho Starkey MD | PCP | | + +------+ + Encounter Details +--------+ + + + + | Date | Type | Department | Care Team | Description | +--------+ + + + + | 08/09/ | Abstract | [facility] [place] | Paco Gonzalez | | | 2014 | | PHYSIATRY [address] Cox MD [address] | | | | | [address] | [address] [place] | | | | | [place] | [address] | | | | | [address] | | | | | | [phone] | | | +--------+ + + + [...]
--- OUTSIDE RECORDS SUMMARY | ~2019-12-19 | XMS | Encounter Summary ---
Demographics + + + | Address | [address] | | | [place] [address] | + + + | Home Phone | | + + + | Preferred Language | Unknown | + + + | Marital Status | | + + + | Taoist Affiliation | 1013 | + + + | Race | White | + + + | Ethnic Group | Not or | + + + Author + + + | Author | [facility] | | | and [place] | + + + | Organization | [facility] | | | [...] Team Providers + +------+ + | Care Operations Agent Name | Role | Phone | + +------+ + | Teena Busch NP | PCP | | + +------+ + Reason for Visit +--------+--------+ + | Reason | Onset | Comments | | | Date | | +--------+--------+ + | Apnea | 03/10/ | | | | 2014 | | +--------+--------+ + Encounter Details +--------+ + + + + | Date | Type | Department | Care Team | Description | +--------+ + + + + | 03/10/ | Telephone | [facility] | Sundeep Ba PA | Apnea | | 2014 | | SLEEP DISORDER [address] | [address] | | | | | [address] [place] | [place], [place] | | | | | [place] [address] | [address] | | | | | [phone] | | | +--------+ + + + [...] this encounter Miscellaneous Notes Telephone Encounter - Sundeep Ba PA - 06/09/2015 2:42 PM Lucille has had a difficult time tolerating her CPAP. We discussed desensitization and the importance of wearing her C PAP 100% of the time she is asleep in order to develop it into a regular part of her sleep r outine. Sundeep [place], PA documente d in this encounter Plan of Treatment Not on filedocumented as of this encounter Visit Diagnoses Not on filedocumented in this encounter"
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
--- OUTSIDE RECORDS SUMMARY | ~2019-12-19 | XMS | Encounter Summary ---
Demographics + + + | Address | [address] | | | [place] [address] | + + + | Home Phone | | + + + | Preferred Language | Unknown | + + + | Marital Status | | + + + | Voodoo Affiliation | 1013 | + + + | Race | White | + + + | Ethnic Group | Not or | + + + Author + + + | Author | [facility] | | | and [place] | + + + | Organization | [facility] | | | [...] Team Providers + +------+ + | Care Counter Clerk [employer] Equipment [employer] Name | Role | Phone | + [...] Description | +--------+--------+ + + + | 05/23/ | Refill | [facility] [place] | Leonidas Huddleston MD | Medication Refill | | 2016 | | OTOLARYNGOLOGY [address] | [address] [place] | | | | | [address] | [address] [place], [place] | | | | | [place], [place] | [address] | | | | | [address] | | | | | | [phone] | | | +--------+--------+ + + + [...] Diagnoses Not on filedocumented in this encounter Additional Health Concerns + + + + + | Infection | Onset Date | Last Indicated | Resolved Time | + + + + + | Rule out COVID-19 | 10/03/2019 | 10/03/2019 | 10/03/2019 12:20 PM | | | | | PDT | + + + + + documented as of this encounter"
--- OUTSIDE RECORDS SUMMARY | ~2019-12-19 | XMS | Encounter Summary ---
Demographics + + + | Address | [address] | | | [place] [address] | + + + | Home Phone [...] and Services [facility] | | | and [place] | + + + | Organization | [...] Providers + +------+ + | Care Rn Integrated Name | Role | Phone | + [...] + | 12/03/ | Office | [facility] | Sundeep Ba PA | CONSUELO on CPAP (Primary | | 2016 | Visit | SLEEP DISORDER [address] | [address] | Dx) | | | | [address] [place] | [place] | | | | | [place] [address] | [address] | | | | | [phone] | | | +--------+---------+ + + + [...] AirSense 10 with nasal mask obtained from: [employer] in [place] pressure: 9-20 cm (lowered to 4-8 cm [...] Exam Assessment: Problem #1: OBSTRUCTIVE SLEEP APNEA (PNS43-F47.33) This is controlled with CPAP. She continues [...] months, sooner prn. Fifteen minutes were spent [id number], w ith the majority of time spent [...]
--- OUTSIDE RECORDS SUMMARY | ~2019-12-19 | XMS | Encounter Summary ---
Demographics + + + | Address | [address] | | | [place] [address] | + + + | Home Phone [...] + | Author | [facility] | | | and [place] | + + + | Organization | [facility] | | | [...] Team Providers + +------+ + | Care Investment Advisor Name | Role | Phone | + +------+ + | Abimael Devlin MD | PCP | | + +------+ + Reason for Visit +--------+--------+ + | Reason | Onset | Comments | | | Date | | +--------+--------+ + | Other | 01/12/ | Pharmacy/Medication verification | | | 2015 | | +--------+--------+ + Encounter Details +--------+ + + + + | Date | Type | Department | Care Team | Description | +--------+ + + + + | 01/12/ | Telephone | [facility] | Leonidas Huddleston, | Other | | 2015 | | PHYSIATRY [address] | [address] | (Pharmacy/Medication | | | | [address] | [place] | verification) | | | | [place] | [address] | | | | | [address] | | | | | | [phone] | | | +--------+ + + + [...] Telephone Encounter - Ciara Varela RN - 01/13/2016 10:14 AM PDTCalled Velia ribeiro Fidelina Carmona to verify what her Pharmacy is. Patient states her preferred Pharmacy is: [facility] [facility] [place] [facility] [address] [facility] ([phone]). Called patient's preferred Pharmacy. Spoke with Pharmacist: Loyd Patient's name and date of were verified. Medication information were given and read back: Medication and Dose: topiramate (TOPAMAX) 25 mg tablet Dispense Quantity: 120 Refills: 1 Si tablet by mouth qHS for 7 days; then 1 twice daily for 7 days; then 1 qAM and 2 qHS for 7 days; then 2 twice daily Authorizing Provider: Leonidas Huddleston MIGUEL ANGEL: [id number] Loyd verbalized understanding. Called [facility] ([address] [address]; ) and spoke with Angela. She was informed to cancel this medica tion with their pharmacy. She verbalized understanding, and states that it was not received, but will make a note of it and let the pharmacy know. documente d in this encounter Plan of Treatment Not on filedocumented as of this encounter Visit Diagnoses Not on filedocumented in this encounter"
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
--- OUTSIDE RECORDS SUMMARY | ~2019-12-19 | XMS | Encounter Summary ---
Demographics + + + | Address | [address] | | | [place] [address] | + + + | Home Phone | | + + + | Preferred Language | Unknown | + + + | Marital Status | | + + + | Congregation Affiliation | 1013 | + + + | Race | White | + + + | Ethnic Group | Not or | + + + Author + + + | Author | [facility] | | | and [place] | + + + | Organization | [facility] | | [...] Team Providers + +------+ + | Care Fitness Manager Name | Role | Phone | + +------+ + | Abimael Devlin MD | PCP | | + +------+ + Encounter Details +--------+ + + + + | Date | Type | Department | Care Team | Description | +--------+ + + + + | 09/14/ | Imaging | [facility] | Provider, | | | 2020 | Exam | MED CTR EXTERNAL | MD [address] | | | | | IMAGING [address] | [address] | | | | | [address] | [place] [address] | | | | | [place] [address] | | | | | | [phone] | | | +--------+ + + + [...] + +--------+ + + + | MRI BRAIN WO | Routin | 01/20/2005 | | Results for this | | CONTRAST | e | 12:00 AM | | procedure are in the | | | | PST | | results section. | + +--------+ + + + documented in this encounter Results MRI Brain wo Contrast (01/20/2005 12:00 AM PST) + + | Specimen | + + | | + + + + + | Narrative | Performed At | + + + | External films for comparison only | [facility] | | | | | No results will be in the chart. | | + + + + +---------+ + + | Performing | Address | City/State/Zipcode | Phone Number | | Organization | | | | + +---------+ + + | [facility] | | | | + +---------+ + + documented in this encounter Visit Diagnoses Not on filedocumented in this encounter"
--- OUTSIDE RECORDS SUMMARY | ~2019-12-19 | XMS | Encounter Summary ---
Demographics + + + | Address | [address] | | | [place] [address] | + + + | Home Phone | | + + + | Preferred Language | Unknown | + + + | Marital Status | | + + + | Zoroastrianism Affiliation | 1013 | + + + | Race | White | + + + | Ethnic Group | Not or | + + + Author + + + | Author | [facility] | | | and [place] | + + + | Organization | [facility] | | | [...] Team Providers + +------+ + | Care Inter Fold Roll Cutter Name | Role | Phone | + +------+ + | Abimael Devlin MD | PCP | | + +------+ + Encounter Details +--------+ + + + + | Date | Type | Department | Care Team | Description | +--------+ + + + + | 07/04/ | Imaging | [facility] | Provider, | | | 2019 | Exam | MED CTR EXTERNAL | MD [address] | | | | | IMAGING [address] | [address] | | | | | [address] | [place] [address] | | | | | [place] [address] | | | | | | [phone] | | | +--------+ + + + [...] + +--------+ + + + | MRI HIP RIGHT WO | Routin | 07/01/2017 | | Results for this | | CONTRAST | e | 12:00 AM | | procedure are in the | | | | PDT | | results section. | + +--------+ + + + documented in this encounter Results MRI Hip Right wo Contrast (07/01/2017 12:00 AM PDT) + + | Specimen | [...]
--- OUTSIDE RECORDS SUMMARY | ~2019-12-19 | XMS | Encounter Summary ---
Demographics + + + | Address | [address] | | | [place] [address] | + + + | Home Phone [...] | Author | [facility] | | | and [place] | + + + | Organization | [facility] | | | and [...] Team Providers + +------+ + | Care Wholesale Loan Processor Name | Role | Phone | + [...] Description | +--------+---------+ + + + | 10/19/ | Office | [facility] | Sundeep Ba PA | CONSUELO on CPAP (Primary | | 2016 | Visit | SLEEP DISORDER [address] | [address] | Dx) | | | | [address] [place] | [place] | | | | | [place] [address] | [address] | | | | | [phone] | | | +--------+---------+ + + + [...] + + + | Blood Pressure | 150/90 | 10/20/2015 10:09 AM | | | | | PDT | | + + + + + | Pulse | 79 | 10/20/2015 10:09 AM | | | | | PDT | | + + + + + | Temperature | - | - | | + + + + + | Respiratory Rate | 16 | 10/20/2015 10:09 AM | | | | | PDT | | + + + + + | Oxygen Saturation | 96% | 10/20/2015 10:09 AM | | | | | PDT | | + + + + + | Inhaled Oxygen | - | - | | | Concentration | | | | + + + + + | Weight | 106.1 kg (234 lb) | 10/20/2015 10:09 AM | | | | | PDT | | + + + + + | Height | - | - | | + + + + + | Body Mass Index | 35.58 | 08/01/2015 10:15 AM | | | | | PDT | | + + + + + documented in this encounter Patient Instructions Patient Instructions Sundeep Ba PA - 10/20/2015 10:20 AM PDT1. Work toward wearing CPA P 100% of the time asleep. 2. Keep a daily log of the number of hours you used your CPAP and the number of hours you have slept for each day. documented in this encounter Progress Notes Sundeep Ba PA - 10/20/2015 10:07 AM PDT Subjective: Patient ID: Luz Maria Carmona is a 60 y.o. female. HPI last office visit was: 07/14/2015 date of split-night polysomnography: 12/03/2014 AHI: 62.1 RDI: 69.2 O2%: 74% with 27.0 minutes below 88% Machine type: [employer]Med AirSense 10 with nasal mask obtained from: [employer] in [place] pressure: 9-20 cm (lowered to 4-8 cm for comfort) Median: 7.8 cm 95%: 7.9 cm maximum: 7.9 cm Nights using CPAP: 05/25 53/62 56/ 36/98 % of nights >4 hours: 0% 48% 40% 28% average usage (all nights): 0:12 3:27 2:38 1:57 average usage (nights used): 1:00 4:03 4:17 5:21 AHI: 1.4 "Alma Rosa" comes in for CPAP compliance. She does well with her CPAP when she wears it, but continues to struggle with her consistency. Her memory is part of her challenge. She told me that she was doing very well with her CPAP, wearing it regularly, until I showed her the download, which shows very erratic usage. She then said she has done well recently and she has only used her CPAP once in the last 2 weeks. She would benefit from keeping a daily log of her CPAP usage and her number of hours of sleep. She thinks she could do this. We shaun carlos discussed the severity of her apnea and the importance of treating her apnea. I have discussed the download in detail. This shows that her sleep apnea is much improved, with an AHI of 1.4. It also shows that her leaks are pretty well controlled. BP 150/90 mmHg | Pulse 79 | Resp 16 | Wt 106.142 kg (234 lb) | SpO2 96% Review of Systems Objective: Physical Exam Assessment: Problem #1: OBSTRUCTIVE SLEEP APNEA ([id number]-D75.33) This is controlled with CPAP. She continues to struggle with her consistency. Plan: 1. She is to continue with CPAP indefinitely. 2. She is to work toward wearing her CPAP 100% of the time she is asleep. 3. She is to keep a daily log of her CPAP usage and hours of sleep. I will follow up again in 3 months, sooner prn. Fifteen minutes were spent [id number], w ith the majority of time spent in counseling. Sundeep Ba PA-C cc: Teena Busch LABORER YARD-DARRYN documented in this enco unter Plan of Treatment Not on filedocumented as of this encounter Visit Diagnoses + + | Diagnosis | + + | CONSUELO on CPAP - Primary Obstructive sleep apnea (adult) (pediatric) | + + documented in this encounter
--- OUTSIDE RECORDS SUMMARY | ~2019-12-19 | XMS | Encounter Summary ---
Demographics + + + | Address | [address] | | | [place] [address] | + + + | Home Phone | | + + + | Preferred Language | Unknown | + + + | Marital Status | | + + + | Church Affiliation | 1013 | + + + | Race | White | + + + | Ethnic Group | Not or | + + + Author + + + | Author | [facility] | | | and [place] | + + + | Organization | [facility] | | | [...] Team Providers + +------+ + | Care Claims Correspondence Clerk Name | Role | Phone | + [...] | | | right hip | [place] [address] | [place] [address] | | | | | Primary | Phone: | Phone: | | | | | osteoarthrit | [phone] | [phone] | | | | | is of right | Fax: | Fax: | | | | | hip | [phone] | [phone] | +--------+ + + + + + [...] | | | | [place], [place] | [address] | bursitis of right | | | | [address] | | hip; Primary | | | | [phone] | | osteoarthritis of | | | [...]
--- OUTSIDE RECORDS SUMMARY | ~2019-12-19 | XMS | Encounter Summary ---
Demographics + + + | Address | [address] | | | [place] [address] | + + + | Home Phone [...] Team Providers + +------+ + | Care Motor Equipment Sergeant Name | Role | Phone | + +------+ + PCP | Unavailable | + +------+ + Encounter Details +--------+ + + + + | Date | Type | Department | Care Team | Description | +--------+ + + + + | 04/26/ | Hospital | C GENERIC IP | Conversion | Pain | | 2013 | Encounter | CONVERSION [address] | Transaction, | | | | | [address] | Provider Unknown | | | | | [place], [place] | [phone] | | | | | [address] | | | | | | | | | +--------+ + + + [...] Note | + + | Ever Almazan Edgardo - 10/27/2018 10:58 PM PDT This is a non-reportable procedure | | without a radiologist report and isused for image storage only | + + documented in this encounter Visit Diagnoses + + | Diagnosis | + + | Pain Generalized pain | + + documented in this encounter"
--- OUTSIDE RECORDS SUMMARY | ~2019-12-19 | XMS | Encounter Summary ---
Demographics + + + | Address | [address] | | | [place] [address] | + + + | Home Phone | | + + + | Preferred Language | Unknown | + + + | Marital Status | | + + + | Baptist Affiliation | 1013 | + + + [...] Team Providers + +------+ + | Care Marble Chip Terrazzo Worker Name | Role | Phone | + +------+ + | Teena Bucsh NURSING OFFICER | PCP | | + +------+ + [...] | Medicine and | Bilateral | Leonidas E A, MD | E A, MD [address] | | | Required | Rehabilitatio | occipital | [address] | | | | n | neuralgia | [address] | [place], | | | | | Procedures | [place], | [place] [address] | | | | | [place] INJECT | [place] [address] | Phone: | | | | | NERV | Phone: | [phone] | | | | | GREGORIO MILLER | [phone] | Fax: | | | | | OCCIPTL [place] | Fax: | [phone] | | | | | BETAMETHASON | [phone] | | | | | | E [...] of medial | MD Erasmo | [address] | | | | n | meniscus, | [address] | [place], | | | | | current | [place] | [place] [address] | | | | | injury, | [place], [place] | Phone: | | | | | right knee, | [address] | [phone] | | | | | subsequent | Phone: | Fax: | | | | | encounter | [phone] | [phone] | | | | | review | Fax: | | | | | | response to | [phone] | | | | | | lyrica, [...] + + | 01/15/ | Office | [facility] | Leonidas Mohr, | Chronic daily | | 2015 | Visit | PHYSIATRY [address] | MD [address] | headache (Primary | | | | [address] | [place] | Dx); Bilateral | | | | [place] | [address] | occipital neuralgia; | | | | [address] | | Migraine without | | | | [phone] | | aura and without | | [...] MD - 01/15/2015 4:06 PM PST [facility] PHYSIATRY [address] [facility] [id number] OFFICE NOTE LEONIDAS MOHR JR, MD Patient: LUZ MARIA LOCKWOOD Admitting: MR #: [id number] LOC: PT TYPE: Adm Date: 01/15/2015 : [...] greater occipital nerve blocks. She has requested [facility] to receive this procedure. She indicates that recently she was approved for [facility]. She would like to move forward with [...] off in the future. We discussed that kavita fong right knee pain returns in the future, [...] 01/15/2015 16:06:49 Transcribed on 01/16/2015 07:44:19 by [facility] job# [id number] Confirmation #: [id number] signed by Leonidas Mohr MD at 01/16/2015 1:00 PM P Hudson, Leonidas Irving MD - 01/15/2015 12:28 PM PSTThis office note has been dictated. Job ID# [id number] signed by Leonidas Mohr MD at 01/15/2015 [...]
--- OUTSIDE RECORDS SUMMARY | ~2019-12-19 | XMS | Encounter Summary ---
Demographics + + + | Address | [address] | | | [place] [address] | + + + | Home Phone [...] | [facility] | | | and [place] | + + + | Organization | [facility] | | | and [...] Team Providers + +------+ + | Care Trumpet Teacher Name | Role | Phone | + +------+ + PCP | Unavailable | + +------+ + Encounter Details +--------+ + + + + | Date | Type | Department | Care Team | Description | +--------+ + + + + | 01/08/ | Hospital | [facility] | | | | 2012 | Encounter | MED CTR XRAY [address] | | | | | | [place] | | | | | | [place] [address] | | | | | | [phone] | | | +--------+ + + + [...] Performed At | + + + | [facility] | [place] | | Department [address] | [facility] | | [ rep [address]] [ rep [facility] | | [facility]] Signed | - IMAGING | | | | | Patient Name: LUZ MARIA LOCKWOOD | | | Physician: AVEL : 1955 Age: 57 Sex: F Unit | | | #: [id number] Exam Date: 01/08/13 Location: | | | [facility] Report #: [id number] Page: | | | %(RAD)RES..mtdd.print.filter("pg") of %(RAD) | | | RES..mtdd.print.filter("tpg") | | | | | | Accession Number: [id number] | | | MRI LUMBAR SPINE CLINICAL [...] Transcribed Date/Time: 01/08/2013 17:54 | | | Tire Design Engineer: <<Signature on File>> | | | | | | Patrick Olivares MD01/09/13 7612 <Electronically signed by Patrick Cox | | | Marshall WINTERS> Patrick Olivares MD 01/08/13 9319 | | | Tire Design Engineer: [email or web address]/28/13 6243 | | | MD Trevor Blue MD | | + + + + + + + + | Performing | Address | City/State/Zipcode | Phone Number | | Organization | | | | + + + + + | [facility] [address] | [address] | [place] | [phone] | | [facility] | | [address] | | | - IMAGING | | | | + + + + + documented in this encounter Visit Diagnoses Not on filedocumented in this encounter
--- OUTSIDE RECORDS SUMMARY | ~2019-12-19 | XMS | Encounter Summary ---
Demographics + + + | Address | [address] | | | [place] [address] | + + + | Home Phone [...] Team Providers + +------+ + | Care Clinical Informatics Specialist Name | Role | Phone | [...] | | | | | [address] | | | | | | [place], [place] | | | | | | [address] | | | | | | [phone] | | | +--------+ + + + [...]
--- OUTSIDE RECORDS SUMMARY | ~2019-12-19 | XMS | Encounter Summary ---
Demographics + + + | Address | [address] | | | [place] [address] | + + + | Home Phone [...] | Author | [facility] | | | and [place] | + + + | Organization | [facility] | | [...] Team Providers + +------+ + | Care Glazier Structural Glass Name | Role | Phone | + [...] Right hip | Lisa, | [address] | | | | | pain | Paco T, MD | [place], | | | | | Procedures | [address] | [place] | | | | | [place] Asp | [place] | [address] | | | | | and/or Inj | [place], [place] | Phone: | | | | | Major Joint | [address] | [phone] | | | | | Right CHG | Phone: | Fax: | | | | | FLUOROSCOPIC | [phone] | [phone] | | | | | GUIDANCE | Fax: | | | | | | NEEDLE | [phone] | | | | | | PLACEMENT | | | | | | | ADD ON HI | | | | | | | [...] | | | | Right hip | Brittanyerg, | [address] | | | | | pain | Paco Cox MD | [place], | | | | | Bursitis of | [address] | [place] | | | | | right hip | [place] | [address] | | | | | Procedures | [place], [place] | Phone: | | | | | [place] | [address] | [phone] | | | | | ARTHROCENTES | Phone: | Fax: | | | | | IS | [phone] | [phone] | | | | | ASPIR&/INJ | Fax: | | | | | | MAJOR | [phone] | | | | | | JT/BURSA W/O | | | | | | | [place] | | | | | | | [...] + + | 12/26/ | Hospital | [facility] | Madeleine, | Right hip pain | | 2018 | Encounter | MED CTR XRAY [address] | CHRISTIANA Kuhn [address] | | | | | [address] [place] | [facility] [address] | | | | | [place] [address] | [place] [address] | | | | | [phone] | [phone] | | | | | | | | | | | | V/St[place] Signal OfficerTono | | | | | | [place] [...] | 0 | 10/17/19 | | | (IREGERARDO) [address] | | | | [...]
--- OUTSIDE RECORDS SUMMARY | ~2019-12-19 | XMS | Encounter Summary ---
Demographics + + + | Address | [address] | | | [place] [address] | + + + | Home Phone [...] + + | Author | [facility] | | | and [place] | + + + | Organization | [facility] | | [...] Team Providers + +------+ + | Care Bander Hand Name | Role | Phone | + [...] + | 12/20/ | Emergency | [facility] | Rj Leung MD | Knee pain, acute, | | 2014 | | MED CTR EMERGENCY | [address] | unspecified | | | | CENTER [address] | [place] | laterality (Primary | | | | [place] | [address] | Dx) | | | | [address] | | | | | | [phone] | | | +--------+ + + + [...] Follow-up with orthopedics as discussed with Dr. Huddleston Return for worsening symptoms, not improving, other [...] encounter ED Notes Rj Leung MD - 12/20/2014 10:40 AM PDT [facility] Luz Maria Kitchen Kristine Emergency Department Encounter Note [address] [place] [id number] PCP:Wicho Starkey MD [phone] CHIEF COMPLAINT: Knee pain HPI Luz Maria Carmona is a 59 y.o. female who presents to the Emergency Department with righ t knee pain that's been ongoing for a while. She had an MRI recently revealing what appeare d to be contusion as well as meniscal injury and otherwise sprain of the knee. She is suppo sed to have follow-up with orthopedist that was to be arranged by Dr. Huddleston, she is also renae eduled with her regular doctor Dr. Hays. She has not had recent injury to the knee. She' s been having continued pain and is out of pain control. She has not had fever. No other c omplaint currently. PAST MEDICAL & SURGICAL HISTORY Past Medical [...] PHYSICAL EXAM VITAL SIGNS: (first vital signs):Temp: 36.2 C (97.1 F) Pulse: 75 Resp: 16 SpO2: 92 % BP : 129/70 mmHg She is alert oriented appears well nontoxic Focus examination of her right knee reveals some mild swelling, there is no erythema, brisk cap refill, distal sensation intact, she has diffuse tenderness to light touch without crep itus step-offs or deformities she has a knee immobilizer with her ASSESMENT & ED COURSE: Patient here with continued knee pain with meniscal injury as well as bone contusion and sp rain of the knee. I did discuss with her her need to follow-up with orthopedics to decide i f there may be some surgical intervention if she is not improving. She has follow-up schedu led with her primary care. She otherwise appears nontoxic here no signs of infection, DVT c ompartment syndrome. We'll plan on discharge home with continued pain control. DISPOSITION: Patient discharged home FINAL IMPRESSION: Knee pain Knee sprain Meniscus injury Rj Leung MD 12/20/14 1117 documente d in this encounter Miscellaneous Notes ED Triage Notes - Shayy Yeh RN - 12/20/2014 10:16 AM PDTPatient seen here a few day s ago for R knee injury, has an appt with her PCP, dr. Starkey, on Tuesday, needs pain meds until then documented in this encounter Plan of Treatment Not on filedocumented as of this encounter Visit Diagnoses + + | Diagnosis | + + | Knee pain, acute, unspecified laterality - Primary | + + documented in this encounter
--- OUTSIDE RECORDS SUMMARY | ~2019-12-19 | XMS | Clinical Summary ---
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 | | | 17 | | | + + +--------+---+------+---+-------+ +---+ + | | Additional | | | InformationPatient | | | not taking. Reason: | | | Not Available, | | | Reported on 09/14/2019 | | | 10:35 PM | +---+ + + + +---+---+------+---+-------+ | dicyclomine | Take 20 mg by mouth | | 0 | | | Activ | | (BENTYL) 20 MG | every 6 hours. | | | | | e | | tablet | | | | | | | + + +---+---+------+---+-------+ | naproxen | Take 500 mg by mouth | | 0 | | | Activ | | (NAPROSYN) 500 mg | 2 times daily (with | | | | | e | | tablet | breakfast & | | | | | | | | dinner). | | | | | | + + +---+---+------+---+-------+ | albuterol (PROAIR | Inhale 2 puffs into | | 0 | | | Activ | | HFA) 90 mcg/puff | the lungs every 6 | | | | | e | | inhaler | hours as needed for | | | | | | | | Wheezing. | | | | | | + + +---+---+------+---+-------+ | ARIPiprazole | take 1 tablet by | | 0 | 07/2 | | Activ | | (ABILIFY) 30 MG | mouth once daily | | | 4/20 | | e | | tablet | | | | 18 | | | + + +---+---+------+---+-------+ | | take 1 tablet by | | 0 | 07/0 | | Activ | | hydroCHLOROthiazide | mouth once daily IN | | | 5/20 | | e | | 25 mg tablet | THE MORNING | | | 18 | | | + + +---+---+------+---+-------+ | dicyclomine | | | 0 | 07/2 | | Activ | | (BENTYL) 10 mg | | | | 4/20 | | e | | capsule | | | | 18 | | | + + +---+---+------+---+-------+ | cyclobenzaprine | | | 0 | 07/2 | | Activ | | (FLEXERIL) 5 MG | | | | 4/20 | | e | | tablet | | | | 18 | | | + + +---+---+------+---+-------+ | | take 1 tablet by | | 0 | 08/0 | | Activ | | HYDROcodone-acetamin | mouth four times a | | | 05/03 | | e | | ophen (NORCO) 10-325 | day if needed for | | | 18 | | | | mg per tablet | pain | | | | | | + + +---+---+------+---+-------+ | Magnesium 400 MG | Take by mouth. | | 0 | | | Activ | | CAPS | | | | | | e | + + +---+---+------+---+-------+ | Blood Glucose | TEST BLOOD GLUCOSE 1 | | 0 | 09/1 | | Activ | | Monitoring Suppl | TO 2 TIMES DAILY | | | 8 | | e | | (FREESTYLE LITE) | | | | 18 | | | | SERG | | | | | | | + + +---+---+------+---+-------+ | famotidine | 20 mg Daily. | | 0 | 10/1 | | Activ | | (PEPCID) 20 mg | | | | 320 | | e | | tablet | | | | 18 | | | + + +---+---+------+---+-------+ | FREESTYLE LITE | CHECK BLOOD SUGAR | | 0 | 09/1 | | Activ | | strip | EVERY MORNING AND 1 | | | 20 | | e | | | TO 2 TIMES | | | 18 | | | | | THROUGHOUT THE DAY | | | | | | + + +---+---+------+---+-------+ | FLUCELVAX | inject 0.5 | | 0 | 10/2 | | Activ | | QUADRIVALENT 0.5 ML | milliliter | | | 5/20 | | e | | vaccine injection | intramuscularly | | | 18 | | | + + +---+---+------+---+-------+ | FREESTYLE LANCETS | CHECK BLOOD SUGAR | | 0 | 09/1 | | Activ | | MISC | every morning and 1 | | | 10/31 | | e | | | TO 2 TIMES | | | 18 | | | | | THROUGHOUT THE DAY | | | | | | + + +---+---+------+---+-------+ | ibuprofen | take 1 tablet by | | 0 | 03/ | | Activ | | (ADVIL,MOTRIN) 800 | mouth three times a | | | 04/02 | | e | | MG tablet | day for 10 days | | | 19 | | | + + +---+---+------+---+-------+ | | inhale contents of 1 | | 0 | 04/2 | | Activ | | albuterol-ipratropiu | vial every 6 hours | | | 2 | | e | | m 2.5-0.5 mg/3 mL | if needed | | | 19 | | | | SOLN | | | | | | | + + +---+---+------+---+-------+ | FLOVENT HFA 44 | inhale 1 puff by | | 0 | 05/1 | | Activ | | MCG/ACT inhaler | mouth twice a day | | | 07/31 | | e | | | | | | 19 | | | + + +---+---+------+---+-------+ | prazosin | take 1 capsule by | | 0 | 04/2 | | Activ | | (MINIPRESS) 2 MG | mouth at bedtime for | | | 6/20 | | e | | capsule | 3 days then take 2 | | | 19 | | | | | capsule... (REFER | | | | | | | | TO PRESCRIPTION | | | | | | | | NOTES). | | | | | | + + +---+---+------+---+-------+ | furosemide (LASIX) | Take 20 mg by mouth | | 0 | | | Activ | | 20 mg tablet | Daily. | | | | | e | + + +---+---+------+---+-------+ | calcium, as | Take 600 mg by mouth | | 0 | | | Activ | | carbonate, (CALCIUM | 3 times daily (with | | | | | e | | 600) 600 MG TABS | meals). | | | | | | + + +---+---+------+---+-------+ Active Problems + + + | Problem [...] 2016_Regulatory_1 | |IMO Problem List Replacement - 2017_Regulatory_1 | + + + + + | Other chronic pain | 03/12/2008 | + + + + + | Overview: Overview: | | HYDROCODONE . 28 PER MONTH | + + + [...] of suicidal ideation. Goes to | | [facility]. Psychiatric meds prescribed by Dr Zuh Name | | changed by system update on 12/24/2016Overview: History of | | suicidal ideation. Goes to [facility]. Psychiatric meds prescribed | | by Dr Zhu Name changed by system update on 12/24/2016 | | | |Overview: | |History of suicidal ideation. Goes to [facility]. Psychiatric meds prescribed by | | Dr [...] | +--------+ + + + + | 10/02/ | Emergency | Emergency Medicine | Rj Leung MD | Nonintractable | | 2020 | | | | headache, | | | | | | unspecified | | | | | | chronicity pattern, | | | | | | unspecified headache | | | | | | type (Primary Dx) | +--------+ + + + + [...] + | Blood Pressure | 129/64 | 10/03/2019 12:15 PM | | | | | PDT | | + + + + + | Pulse | 80 | 10/03/2019 12:15 PM | | | | | PDT | | + + + + + | Temperature | 37.8 C (100 F) | 10/03/2019 11:34 AM | | | | | PDT | | + + + + + | Respiratory Rate | 20 | 10/03/2019 11:07 AM | | | | | PDT | | + + + + + | Oxygen Saturation | 94% | 10/03/2019 12:30 PM | | | | | PDT | | + + + + + | Inhaled Oxygen | - | - | | | Concentration | | | | + + + + + | Weight | 114.8 kg (253 lb) | 09/14/2019 10:26 PM | | | | | PDT | | + + + + + | Height | 175.3 cm (5' 9") | 09/14/2019 10:26 PM | | | | | PDT | | + + + + + | Body Mass Index | 37.36 | 09/14/2019 10:26 PM | | | | | PDT | | + + + + + Plan of Treatment + + + + + | Health Maintenance | Due Date | Last | Comments | | | | Done | | + + + + + | Hepatitis C | | | | | Screening | 5 | | | + + + + + | Med Mgmt: HBA1C | | | | | | 5 | | | + + + + + | Med Mgmt: HDL | | | | | | 5 | | | + + + + + | Med Mgmt: LDL | | | | | | 5 | | | + + + + + | Med Mgmt: Total | | | | | Cholesterol | 5 | | | + + + + + | Med Mgmt: | | | | | Triglycerides | 5 | | | + + + + + | Med Mgmt: Vit D | | | | | | 5 | | | + + + + + | Medication | | | | | Management | 5 | | | + + [...] | + + + + + | Adult Annual | | | | | Wellness Visit | 5 | | | + + + + + | Statin Therapy | | | | | (optimal intensity) | 5 | | | + + + + + | Vaccine: | | | | | Pneumococcal 65+ (1 | 0 | | | | of 1 - PPSV23) | | | | + + + + + | Vaccine: Influenza | | 02/03/20 | | | (#1) | 0 | 19, | | | | | 01/06/20 | | | | | 18, | | | | | 12/04/19 | | | | | 17, | | | | | Addition | | | | | al | | | | | history | | | | | exists | | + + + + + | Vaccine: | | 01/10/20 | | | Dtap/Tdap/Td (2 - | 0 | 10, | | | Td) | | 05/14/19 | | | | | 04 | | + + + + + | Med Mgmt: BUN | | 09/15/19 | | | | 1 | 20, | | | | | 08/24/19 | | | | | 17 | | + + + + + | Med Mgmt: Cr | | 09/15/19 | | | | 1 | 20, | | | | | 08/24/19 | | | | | 17 | | + + + + + | Med Mgmt: HCT | | 09/15/19 | | | | 1 | 20, | | | | | 08/24/19 | | | | | 17 | | + + + + + | Med Mgmt: HGB | | 09/15/19 | | | | 1 | 20, | | | | | 08/24/19 | | | | | 17 | | + + + + + | Med Mgmt: K | | 09/15/19 | | | | 1 | 20, | | | | | 08/24/19 | | | | | 17 | | + + + + + | Med Mgmt: Na | | 09/15/19 | | | | 1 | 20, | | | | | 08/24/19 | | | | | 17 | | + + + + + | Med Mgmt: PLT | | 09/15/19 | | | | 1 | 20, | | | | | 08/24/19 | | | | | 17 | | + + + + + | Med Mgmt: RBC | | 09/15/19 | | | | 1 | 20, | | | | | 08/24/19 | | | | | 17 | | + + + + + | Med Mgmt: WBC | | 09/15/19 | | | | 1 | 20, | | | | | 08/24/19 | | | | | 17 | | + + + + + | Med Mgmt: eGFR | | 09/15/19 | | | | 1 | 20, | | | | | 08/24/19 | | | | | 17 | | + + + + + | Colorectal Cancer | | 10/15/19 | | | Screening | 7 | 17, | | | (Colonoscopy) | | 10/15/19 | | | | | 17 | | + + + + + Procedures + +--------+ + + + | Procedure Name | Priori | Date/Time | Associated Diagnosis | Comments | | | ty | | | | + +--------+ + + + | CORONAVIRUS | STAT | 10/03/2019 | | Results for this | | (COVID-19) NAAT | | 11:20 AM | | procedure are in the | | | | PDT | | results section. | + +--------+ + + + | ED INFORMATION | Routin | 10/03/2019 | | | | EXCHANGE | e | 10:53 AM | | | | | | PDT | | | + +--------+ + + + +---+--------+ | | | | | Proced | | | ure | | | Note - | | | Tha, | | | Lab In | | | | | | Hlseve | | | n - | | | | | | 2019 | | | 10:54 | | | AM PDT | | | | | | Format | | | ting | | | of | | | this | | | note | | | might | | | be | | | differ | | | ent | | | from | | | the | | | origin | | | al.COL | | | LECTIV | | | E?NOTI | | | FICATI | | | ON?07/ | | | 22/202 | | | 0 | | | 10:52? | | | [place]AR[place] | | | N, | | | CANELO | | | H | | | L?MRN: | | | | | | [id number] | | | [id number] | | | riteri | | | a Met | | | Care | | | Guidel | | | inesSe | | | curity | | | and | | | Safety | | | No | | | recent | | | | | | Securi | | | ty | | | Events | | | | | | curren | | | tly on | | | | | | fileED | | | Care | | | Guidel | | | freda | | | from | | | [facility] | | | ys - | | | [place] | | | laLast | | | | | | Update | | | d: | | | 4/18/1 | | | 9 9:58 | | | AM | | | Care | | | Coordi | | | nation | | | :Curre | | | ntly | | | engage | | | d in | | | mental | | | | | | health | | | | | | servic | | | es | | | with | | | [facility] | | | ys.? | | | Please | | | | | | contac | | | t | | | [place] | | | ys | | | with | | | mental | | | | | | health | | | | | | concer | | | ns.? | | | [place] | | | ton/Mi | | | lton | | | [place] | | | ter:? | | | [phone] | | | [phone] | | | ? ? | | | Hermis | | | ton: | | | [phone] | | | [phone] | | | .These | | | are | | | guidel | | | freda | | | and | | | the | | | provid | | | er | | | should | | | | | | exerci | | | se | | | clinic | | | al | | | judgme | | | nt | | | when | | | provid | | | ing | | | care.C | | | are | | | Histor | | | yMedic | | | al/Wendi | | | [email or web address] | | | /3/19 | | | 12:00 | | | AM | | | [facility] [place] [facility] | | | alEOIP | | | A CASE | | | | | | MANAGE | | | MENT | | | REFERR | | | AL | | | MADE- | | | PATIEN | | | T HAS | | | EOCCO | | | AND NO | | | PCP. | | | Flags | | | | | | [place] | | | ED | | | Dispar | | | ity | | | Measur | | | e - | | | [place] | | | has | | | develo | | | ped a | | | flag | | | (Orego | | | n ED | | | Dispar | | | ity | | | Measur | | | e) to | | | help | | | suppor | | | t | | | Medica | | | id | | | member | | | s with | | | | | | mental | | | | | | illnes | | | s. | | | [place] | | | | | | Health | | | | | | Author | | | ity | | | uses | | | claims | | | data | | | with a | | | | | | 36-mon | | | th | | | ilana | | | g look | | | back | | | period | | | to | | | identi | | | fy | | | member | | | s who | | | have | | | had | | | two or | | | more | | | diagno | | | ses of | | | | | | mental | | | | | | illnes | | | s | | | (does | | | not | | | need | | | to be | | | primar | | | y) in | | | any | | | settin | | | g | | | (e.g. | | | ED, | | | Inpati | | | ent, | | | primar | | | y | | | care). | | | | | | Flagge | | | d | | | member | | | s are | | | includ | | | ed in | | | the ED | | | | | | Dispar | | | ity | | | Measur | | | e | | | denomi | | | nator | | | popula | | | tion. | | | Flags | | | are | | | update | | | d | | | weekly | | | . / | | | Attrib | | | uted | | | By: | | | [place] | | | | | | Health | | | | | | Author | | | ity | | | (OHA) | | | / | | | Attrib | | | uted | | | On: | | | 01/14/ | | | 2020 | | | Prescr | | | iption | | | Drug | | | Report | | | (12 | | | Mo.)PD | | | MP | | | query | | | found | | | no | | | report | | | .E.D. | | | Visit | | | Count | | | (12 | | | mo.)Fa | | | cility | | | | | | Visits | | | Low | | | Acuity | | | | | | Provid | | | ence | | | St[facility] | | | [facility] | [facility] | | | l | | | Center | | | 2 0 | | | [facility] [place] [facility] | [facility] | | | [facility] | | | al 5 0 | | | Total | | | 7 0 | | | Note: | | | Visits | | | | | | indica | | | te | | | total | | | known | | | visits | | | . | | | Medica | | | id Low | | | | | | Acuity | | | Dx | | | are | | | the | | | number | | | of | | | primar | | | y | | | diagno | | | ses on | | | the | | | Medica | | | id's | | | Low | | | Acuity | | | dx | | | list. | | | | | | Recent | | | | | | Emerge | | | ncy | | | Depart | | | ment | | | Visit | | | [facility] | | | yDate | | | Facili | | | ty | | | City | | | State | | | Type | | | Diagno | | | ses or | | | Chief | | | | | | Compla | | | int | | | [place] | | | 22, | | | 2020 | | | Provid | | | ence | | | [facility] | | | [facility] | | [place] | | | [place] | | | Emerge | | | ncy | | | head | | | pain, | | | pressu | | | re, | | | dizzy | | | [place] | | | 6, | | | 2020 | | | [facility] [place] | | | [facility] | | | [place] | | | [place] | | | Emerge | | | ncy | | | | | | Dizzin | | | ess | | | and | | | giddin | | | ess | | | | | | Essent | | | ial | | | (prima | | | ry) | | | hypert | | | ension | | | | | | Allerg | | | y | | | status | | | to | | | narcot | | | ic | | | agent | | | status | | | | | | Major | | | depres | | | sive | | | disord | | | er, | | | single | | | | | | episod | | | e, | | | unspec | | | ified | | | | | | Type 2 | | | | | | diabet | | | es | | | mellit | | | us | | | withou | | | t | | | compli | | | cation | | | s | | | Long | | | term | | | (curre | | | nt) | | | use of | | | oral | | | hypogl | | | ycemic | | | drugs | | | | | | Other | | | long | | | term | | | (curre | | | nt) | | | drug | | | therap | | | y | | | Allerg | | | y | | | status | | | to | | | other | | | drugs, | | | | | | medica | | | ments | | | and | | | biolog | | | ical | | | sub | | | | | | Hypo-o | | | smolal | | | ity | | | and | | | hypona | | | tremia | | | | | | Nicoti | | | ne | | | depend | | | ence, | | | unspec | | | ified, | | | | | | uncomp | | | licate | | | d [place] | | | 3, | | | 2020 | | | Provid | | | ence | | | St[facility] | | | [facility] | [place] | | | [place] | | | Emerge | | | ncy | | | pain | | | in | | | head | | | | | | Headac | | | he | | | (Adult | | | - New | | | Onset | | | Or | | | New | | | Sympto | | | ms) | | | | | | Headac | | | he | | | Nov | | | 19, | | | 2019 | | | [facility] [place] [facility] | | | [place] | | | [place] | | | Emerge | | | ncy | | | Chief | | | Compla | | | int: | | | SWORE | | | THROAT | | | /ABDOM | | | INAL | | | CRAMPS | | | Sep | | | 23, | | | 2019 | | | [facility] [place] | | | [facility] | | | [place] | | | [place] | | | Emerge | | | ncy | | | | | | Person | | | al | | | histor | | | y of | | | nicoti | | | ne | | | depend | | | ence | | | | | | Unspec | | | ified | | | abdomi | | | nal | | | pain | | | | | | Allerg | | | y | | | status | | | to | | | other | | | drugs, | | | | | | medica | | | ments | | | and | | | biolog | | | ical | | | sub | | | Long | | | term | | | (curre | | | nt) | | | use of | | | oral | | | hypogl | | | ycemic | | | drugs | | | | | | Allerg | | | y | | | status | | | to | | | narcot | | | ic | | | agent | | | status | | | | | | Major | | | depres | | | sive | | | disord | | | er, | | | single | | | | | | episod | | | e, | | | unspec | | | ified | | | | | | Umbili | | | bimal | | | hernia | | | | | | withou | | | t | | | obstru | | | ction | | | or | | | gangre | | | ne | | | Type 2 | | | | | | diabet | | | es | | | mellit | | | us | | | withou | | | t | | | compli | | | cation | | | s | | | Other | | | long | | | term | | | (curre | | | nt) | | | drug | | | therap | | | y | | | Essent | | | ial | | | (prima | | | ry) | | | hypert | | | ension | | | [place] | | | 22, | | | 2019 | | | [facility] [place] | | | [facility] | | | [place] | | | [place] | | | Emerge | | | ncy | | | | | | Allerg | | | y | | | status | | | to | | | other | | | drugs, | | | | | | medica | | | ments | | | and | | | biolog | | | ical | | | sub | | | Other | | | long | | | term | | | (curre | | | nt) | | | drug | | | therap | | | y | | | Type 2 | | | | | | diabet | | | es | | | mellit | | | us | | | withou | | | t | | | compli | | | cation | | | s | | | Essent | | | ial | | | (prima | | | ry) | | | hypert | | | ension | | | | | | Unspec | | | ified | | | abdomi | | | nal | | | pain | | | | | | Other | | | chroni | | | c pain | | | | | | Major | | | depres | | | sive | | | disord | | | er, | | | single | | | | | | episod | | | e, | | | unspec | | | ified | | | | | | Allerg | | | y | | | status | | | to | | | narcot | | | ic | | | agent | | | status | | | [place] | | | 22, | | | 2019 | | | [facility] [place] | [facility] | [facility] | | | [place] | | | [place] | | | Emerge | | | ncy | | | | | | Essent | | | ial | | | (prima | | | ry) | | | hypert | | | ension | | | | | | Other | | | long | | | term | | | (curre | | | nt) | | | drug | | | therap | | | y | | | Hypo-o | | | smolal | | | ity | | | and | | | hypona | | | tremia | | | | | | Type 2 | | | | | | diabet | | | es | | | mellit | | | us | | | withou | | | t | | | compli | | | cation | | | s | | | Allerg | | | y | | | status | | | to | | | other | | | drugs, | | | | | | medica | | | ments | | | and | | | biolog | | | ical | | | sub | | | | | | Ventra | | | l | | | hernia | | | | | | withou | | | t | | | obstru | | | ction | | | or | | | gangre | | | ne | | | Unspec | | | ified | | | abdomi | | | nal | | | pain | | | | | | Allerg | | | y | | | status | | | to | | | narcot | | | ic | | | agent | | | status | | | | | | Major | | | depres | | | sive | | | disord | | | er, | | | single | | | | | | episod | | | e, | | | unspec | | | ified | | | | | | Recent | | | | | | Inpati | | | ent | | | Visit | | | [facility] | | | yDate | | | Facili | | | ty | | | City | | | State | | | Type | | | Diagno | | | ses or | | | Chief | | | | | | Compla | | | int | | | Nov | | | 27, | | | 2019 | | | [facility] [place] | | | [facility] | | | [place] | | | [place] | | | Surger | | | y | | | Incisi | | | onal | | | hernia | | | | | | withou | | | t | | | obstru | | | ction | | | or | | | gangre | | | ne | | | Nov | | | 20, | | | 2019 | | | [facility] [place] | | | [facility] | | | 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 | | | l | | | pharyn | | | gitis | | | | | | Essent | | | ial | | | (prima | | | ry) | | | hypert | | | ension | | | | | | Migrai | | | ne, | | | unspec | | | ified, | | | not | | | intrac | | | table, | | | | | | withou | | | t | | | status | | | | | | migrai | | | | | | Genera | | | lized | | | abdomi | | | nal | | | pain | | | | | | Allerg | | | y | | | status | | | to | | | other | | | antibi | | | otic | | | agents | | | | | | status | | | | | | Incisi | | | onal | | | hernia | | | | | | withou | | | t | | | obstru | | | ction | | | or | | | gangre | | | ne | | | Care | | | TeamPr | | | ovider | | | | | | Specia | | | lty | | | Phone | | | Fax | | | Servic | | | e | | | Dates | | | CARLSO | | | N, | | | ABIMAEL | | | D, | | | M.D. | | | Family | | | | | | Medici | | | ne | | | [phone] | | | [phone] | | | [phone] | | | [phone] | | | [phone] | | | 36 Mar | | | 12, | | | 2019 - | | | | | | Curren | | | t | | | Collec | | | tive | | | Portal | | | This | | | patien | | | t has | | | regist | | | ered | | | at the | | | | | | Provid | | | ence | | | St[facility] | | [facility] | | | l | | | Center | | | | | | Emerge | | | ncy | | | Depart | | | ment | | | For | | | more | | | inform | | | ation | | | visit: | | | | | | https: | | | //prov | | | .colle | | | ctivem | | | edical | | | [email or web address] | | | otify/ | | | [phone] | | | [phone] | | | [phone] | | | [phone] | | | [id number] | | | [phone] | | | | | | PLEASE | | | NOTE: | | | 1. | | | Any | | | care | | | recomm | | | endati | | | ons | | | and | | | other | | | clinic | | | al | | | inform | | | ation | | | are | | | provid | | | ed as | | | guidel | | | freda | | | or for | | | | | | histor | | | ical | | | purpos | | | es | | | only, | | | and | | | provid | | | ers | | | should | | | | | | exerci | | | se | | | their | | | own | | | clinic | | | al | | | judgme | | | nt | | | when | | | provid | | | ing | | | care. | | | 2. | | | You | | | may | | | only | | | use | | | this | | | inform | | | ation | | | for | | | purpos | | | es of | | | treatm | | | ent, | | | paymen | | | t or | | | health | | | care | | | operat | | | ions | | | activi | | | ties, | | | and | | | subjec | | | t to | | | the | | | limita | | | tions | | | of | | | applic | | | able | | | [facility] | | | tive | | | Polici | | | es. | | | 3. | | | You | | | should | | | | | | consul | | | t | | | direct | | | ly | | | with | | | the | | | organi | | | zation | | | that | | | provid | | | ed a | | | care | | | guidel | | | ine or | | | other | | | | | | clinic | | | al | | | histor | | | y with | | | any | | | questi | | | ons | | | about | | | additi | | | onal | | | inform | | | ation | | | or | | | accura | | | cy or | | | comple | | | teness | | | of | | | inform | | | ation | | | provid | | | ed.? | | | 2019 | | | [facility] | | | tive | | | Med[facility] | | | l | | | [employer] | | | logies | | | , [employer] | | | - | | | [email or web address] | | | llecti | | | vemedi | | | [email or web address] | | | m | +---+--------+ from Last 3 Months Results Coronavirus (COVID-19) NAAT (10/03/2019 11:20 AM PDT) + + + + + + | Component | Value | Ref Range | Performed | Pathologist | | | | | At | Signature | + + + + + + | SARS-CoV-2, | Not DetectedComment: | Not Detected | [facility] | | | NAAT | SARS-CoV-2, [facility] | | [facility] | | | (COVID-19) | (COVID-19) [facility] This | | MEDICAL | | | | assay has been cleared | | CENTER - | | | | for use under an FDA | | LABORATORY | | | | Emergency Use | | | | | | Authorization. This test | | | | | | is used for clinical | | | | | | purposes. It should not | | | | | | be regarded as | | | | | | investigational or for | | | | | | research. This | | | | | | laboratory is certified | | | | | | under the Clinical | | | | | | Laboratory Improvement | | | | | | Amendments (CLIA) as | | | | | | qualified to perform | | | | | | high complexity clinical | | | | | | laboratory testing. | | | | | | These results are not | | | | | | intended to be used as | | | | | | the sole means for | | | | | | clinical diagnosis or | | | | | | patient management | | | | | | decisions. This test | | | | | | has been validated in | | | | | | accordance with the | | | | | | FDA's Guidance Document | | | | | | "Policy for Diagnostics | | | | | | Testing in Laboratories | | | | | | Certified to Perform | | | | | | High Complexity Testing | | | | | | under CLIA prior to | | | | | | Emergency Use | | | | | | Authorization for | | | | | | Coronavirus Disease-2019 | | | | | | during the Public | | | | | | Health Emergency" issued | | | | | | on May 12, 2019. | | | | | | FDA independent review | | | | | | of this validation is | | | | | | pending. This test is | | | | | | only authorized for the | | | | | | duration of time the | | | | | | declaration that | | | | | | circumstances exist | | | | | | justifying the | | | | | | authorization of the | | | | | | emergency use of in | | | | | | vitro diagnostic tests | | | | | | for detection of | | | | | | SARS-CoV-2 virus and/or | | | | | | diagnosis of COVID-19 | | | | | | infection under section | | | | | | 564(b)(1) of the Act, 21 | | | | | | U.S.C. 360bbb-3(b)(1), | | | | | | unless the authorization | | | | | | is terminated or | | | | | | revoked sooner. | | | | + + + + + + + + | Specimen | + + | Tissue - Entire | | nasopharynx (body | | structure) | + + + + + + + | Performing | Address | City/State/Zipcode | Phone Number | | Organization | | | | + + + + + | [facility] | [address] | [place] | [phone] | | [facility] | | [address] | | | - LABORATORY | | | | + + + + + from Last 3 Months Insurance + +--------+ +--------+ +---------+--------+ | Payer | Benefi | Subscriber | Effect | Phone | Address | Type | | | t Plan | ID | valeriano | | | | | | / | | Dates | | | | | | Group | | | | | | + +--------+ +--------+ +---------+--------+ | MEDICARE | MEDICA | [id number] | 05/13/19 | [phone] | | Medica | | | RE | | 20-Pre | 5 | | re | | | PART A | | sent | | | | | | AND B | | | | | | + +--------+ +--------+ +---------+--------+ | [employer] | MODA | [id number] | 09/12/19 | [phone] | | Medica | | MEDICAID HMO [...] Self | [birth year] | [address] | | | al/Fam | | 1956 | [phone] | [address] [place] | | | [place] | | | 8 (Home) | [address] | + +--------+ +--------+ + + Advance Directives + + + + + | Type | Date Recorded | Patient | Explanation | | | | Journeyman Glazier | | + + + + + | Power of | | | | | General Labor | | | | + + + + + | Advance | 10/14/2016 9:58 | | | | Directive | AM | | | + + + + +
--- OUTSIDE RECORDS SUMMARY | ~2019-12-19 | XMS | Encounter Summary ---
Demographics + + + | Address | [address] | | | [place] [address] | + + + | Home Phone | | + + + | Preferred Language | Unknown | + + + | Marital Status | | + + + | Tenriism Affiliation | 1013 | + + + | Race | White | + + + | Ethnic Group | Not or | + + + Author + + + | Author | [facility] | | | and [place] | + + + | Organization | [facility] | | | [...] Team Providers + +------+ + | Care Disc Recordist Name | Role | Phone | + +------+ + | Wicho Starkey MD | PCP | | + +------+ + Reason for Visit +--------+--------+ + | Reason | Onset | Comments | | | Date | | +--------+--------+ + | Other | 09/24/ | | | | 2014 | | +--------+--------+ + Encounter Details +--------+ + + + + | Date | Type | Department | Care Team | Description | +--------+ + + + + | 09/24/ | Telephone | [facility] [place] | Leonidas Huddleston, | Other | | 2014 | | PHYSIATRY [address] | MD [address] | | | | | [address] | [place], [place] | | | | | [place], [place] | [address] | | | | | [address] | | | | | | [phone] | | | +--------+ + + + [...] Telephone Encounter - Charmaine Dangelo RN - 09/27/2014 9:30 AM PDTPatient call returned. Patient states pain following PT has improved, and she now feel PT is helpful.Patient advise d that addition/alternative medication can be discussed at the next appointment. Joel reed signed by Charmaine Dangelo RN at 09/27/2014 9:31 AM PDTTelephone Encounter - Amanda Dangelo RN - 09/25/2014 10:30 AM PDTPatient call returned, not available. No VM available. E lectronically signed by Charmaine Dangelo RN at 09/25/2014 10:30 AM PDTTelephone Encounter - Rebekah Bustamante - 09/24/2014 4:11 PM PDTPatient called to let us know that she was not able to do her physical therapy. She went twice but it was causing too much pain but she has not attended water therapy yet. Also per patient the Gabapentin medication Dr. Huddleston prescribed is not working for her. Please advise documented in this encounter Plan of Treatment Not on filedocumented as of this encounter Visit Diagnoses Not on filedocumented in this encounter"
--- OUTSIDE RECORDS SUMMARY | ~2019-12-19 | XMS | Encounter Summary ---
Demographics + + + | Address | [address] | | | [place] [address] | + + + | Home Phone [...] | [facility] | | | and [place] | + + + | Organization | [facility] [...] Team Providers + +------+ + | Care Strand Buncher Fine Wire Name | Role | Phone | + [...] + + | 08/06/ | Telephone | [facility] [place] | Leonidas Huddleston, | Medication Question | | 2016 | | PHYSIATRY [address] | MD [address] | | | | | [address] | [place] | | | | | [place] | [address] | | | | | [address] | | | | | | [phone] | | | +--------+ + + + [...] has not returned call to the office. Plea se advise elephone Encount er - Charmaine [...]
--- OUTSIDE RECORDS SUMMARY | ~2019-12-19 | XMS | Encounter Summary ---
Demographics + + + | Address | [address] | | | [place] [address] | + + + | Home Phone [...] Team Providers + +------+ + | Care Mill Control Operator Name | Role | Phone | [...] + + | 01/28/ | Office | [facility] | Andre Ugarte | CONSUELO (obstructive | | 2015 | Visit | SLEEP DISORDER [address] | MD Jan [address] | sleep apnea) | | | | [address] [place] | [address] [place] | (Primary Dx) | | | | [place] [address] | [place] [address] | | | | | [phone] | [phone] | | | | | | | [...] get used to wearing the mask at [facility]. Practice using your CPAP device during the [...] to correctly use your CPAP. The r career representative will be able to help you: Use the CPAP correctly Troubleshoot any problems that come up Learn to clean and maintain the device Adjust to regular use of the CPAP 8519-6605 [employer] [address] [place] [address], [place] [address]. All righ ts reserved. This information is [...] Polysomnography under "Media" se ction in the [employer] EMR. Definitions (The AASM Manual for the [...] the majority of time was spent c ouchantaleeling regarding CONSUELO and its treatment. documented in th is encounter Plan of Treatment Not on filedocumented as of this encounter Visit Diagnoses + + | Diagnosis | + + | CONSUELO (obstructive sleep apnea) - Primary Obstructive sleep apnea (adult) (pediatric) | + + documented in this encounter
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
--- OUTSIDE RECORDS SUMMARY | ~2019-12-19 | XMS | Encounter Summary ---
Demographics + + + | Address | [address] | | | [place] [address] | + + + | Home Phone [...] Team Providers + +------+ + | Care Low Pressure Kettle Operator Name | Role | Phone | [...] + | 02/11/ | Office | [facility] | Sundeep Ba PA | CONSUELO on CPAP (Primary | | 2015 | Visit | SLEEP DISORDER [address] | [address] | Dx) | | | | [address] [place] | [place] | | | | | [place] [address] | [address] | | | | | [phone] | | | +--------+---------+ + + + [...] AirSense 10 with nasal mask obtained from: [employer] in [place] pressure: 9-20 cm Median: 12.4 cm 95%: [...] Exam Assessment: Problem #1: OBSTRUCTIVE SLEEP APNEA ([id number]) She has struggled with wearing her CPAP [...] month, sooner prn. Thirty minutes were spent dxsn-dy-dkys, wit h the majority of time spent [...]
--- OUTSIDE RECORDS SUMMARY | ~2019-12-19 | XMS | Encounter Summary ---
Demographics + + + | Address | [address] | | | [place] [address] | + + + | Home Phone [...] + + + | Author | [facility] | | | and [place] | + + + | Organization | [facility] | | | [...] Team Providers + +------+ + | Care Diesel Engine Engineer Name | Role | Phone | [...] + + | 03/15/ | [facility] | [facility] Andre Caballero | Primary | | 2019 | Visit | ORTHOPEDIC SURGERY | MD Rojelio [address] | osteoarthritis of | | | | [address] | [place] | right hip (Primary | | | | [place] | [address] | Dx) | | | | [address] | | | | | | [phone] | | | +--------+---------+ + + + [...] cessation. She also will work diligently on [employer] and will be seen back or office [...]
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
--- OUTSIDE RECORDS SUMMARY | ~2019-12-19 | XMS | Encounter Summary ---
Demographics + + + | Address | [address] | | | [place] [address] | + + + | Home Phone | | + + + | Preferred Language | Unknown | + + + | Marital Status | | + + + | Adventist Affiliation | 1013 | + + + | Race | White | + + + | Ethnic Group | Not or | + + + Author + + + | Author | [facility] | | | and [place] | + + + | Organization | [facility] | | [...] Team Providers + +------+ + | Care Activity Aide Name | Role | Phone | + +------+ + | Abimael Devlin MD | PCP | | + +------+ + Encounter Details +--------+ + + + + | Date | Type | Department | Care Team | Description | +--------+ + + + + | 10/12/ | Abstract | [facility] | Patrick England MD | | | 2016 | | GASTROENTEROLOGY | [address] | | | | | [address] | [address] | | | | | [address] [place], [place] | [address] | | | | | [address] | | | | | | [phone] | | | +--------+ + + + [...]
--- OUTSIDE RECORDS SUMMARY | ~2019-12-19 | XMS | Encounter Summary ---
Demographics + + + | Address | [address] | | | [place] [address] | + + + | Home Phone [...] [facility] | | | and [place] | + + + | Organization | [...] Team Providers + +------+ + | Care Eyelet Cutter Name | Role | Phone | [...] | | Medicine and | Occipital | Teena Ann, | Alicia Irving MD [address] | | | | Rehabilitatio | neuralgia | [employer] [address] | | | | n | neck pain | [address] | [place], | | | | | follow up | [address] | [place] [address] | | | | | | [place], | Phone: | | | | | | [place] [address] | [phone] | | | | | | Phone: | Fax: | | | | | | [phone] | [phone] | | | | | | Fax: | | | | | | | [phone] | | +--------+--------+ + + + + Encounter Details +--------+---------+ + + + | Date | Type | Department | Care Team | Description | +--------+---------+ + + + | 11/13/ | Office | [facility] | Leonidas Mohr, | Chronic daily | | 2016 | Visit | PHYSIATRY [address] | MD [address] | headache (Primary | | | | [address] | [place] | Dx); Migraine | | | | [place] | [address] | without aura and | | | | [address] | | without status | | | | [phone] | | migrainosus, not | | | | | | intractable; | | | | | | Medication overuse | | | | | | headache; | | | | | | Fibromyalgia | +--------+---------+ + + + Social History [...] + + + | Blood Pressure | 124/80 | 11/14/2015 8:54 AM | | | | | PDT | | + + + + + | Pulse | 81 | 11/14/2015 8:54 AM | | | | | PDT | | + + + + + | Temperature | - | - | | + + + + + | Respiratory Rate | 18 | 11/14/2015 8:54 AM | | | | | PDT | | + + + + + | Oxygen Saturation | - | - | | + + + + + | Inhaled Oxygen | - | - | | | Concentration | | | | + + + + + | Weight | 106.1 kg (234 lb) | 11/14/2015 8:54 AM | | | | | PDT | | + + + + + | Height | 172.7 cm (5' 8") | 11/14/2015 8:54 AM | | | | | PDT | | + + + + + | Body Mass Index | 35.58 | 11/14/2015 8:54 AM | | | | | PDT | | + + + + + documented in this encounter Patient Instructions Patient Instructions Leonidas Mohr MD - 11/14/2015 9:28 AM PDTTaper up Lyrica as prescr ibed. Avoid all ibuprofen for the next 3 months. Avoid exposure to nicotine (tobacco smoke). Avoid all caffeine. Limit use of sumatriptan to no more than 3 doses per week and no more than 9 doses per ovidio h. Return to the clinic in 8 weeks. documented in this encounter Progress Notes Leonidas Mohr MD - 11/14/2015 1:00 PM PDT [facility] PHYSIATRY [address] [facility] [address] OFFICE NOTE LEONIDAS MOHR JR, MD Patient: LUZ MARIA LOCK[place]OD Admitting: MR #: [id number] LOC: PT TYPE: Adm Date: 11/14/2015 : 1955 PHYSICAL MEDICINE REHABILITATION PROGRESS NOTE DATE OF : 1955 PRIMARY CARE PROVIDER: Teena Busch DATE OF SERVICE: 11/14/2015. PATIENT IDENTIFICATION: The patient was last seen by va 07/2015. At that time, it was fe lt that she had fibromyalgia, chronic daily headaches, cervicalgia. She was prescribed inc reased dose of Lyrica. She was given recommendations for management of headaches. She retu rns to clinic today to review management of symptoms. The patient indicates that her insurance would not cover 100 mg dose of Lyrica. She braulio nues to take Lyrica 75 mg 3 times per day. She indicates that she is still having headache s 2 days per week. She indicates that most of her headaches last an hour and then go away with sumatriptan. She reports that she has light sensitivity. She denies sound sensitivi ty. She indicates that she has nausea with her headaches sometimes but it is reduced with the Zofran that was prescribed. She denies any aura with her headaches. She indicates delfino t headaches are triggered by stress. She indicates that headaches are reduced by Sumatrip funk as well as taking lorazepam. She indicates that she drinks caffeine in the form of sod a 1 time per week and ice tea twice per week. She indicates that she does not smoke, but sh e lives with a smoker. She indicates that she is exposed to secondhand smoke most days, man y times they smoke outside, but they also smoke in the car with her. She indicates that h er headaches are over the bilateral yarsani, bilateral forehead, and bilateral occipital reg ions. She indicates that she is taking ibuprofen 5 days per week. She is taking sumatript an at least twice per week. She is using abortive pain medication around 7 doses per week . Overall, she reports that there has been some improvement in her symptoms with time, but symptoms also continue to be significantly bothersome. ALLERGIES: ALPRAZOLAM, CODEINE, PRAZOSIN, QUETIAPINE. CURRENT MEDICATIONS: Abilify 20 mg daily. Calcium carbonate with vitamin D daily. Cymbalta 60 mg daily. Vitamin D2 at 50,000 units weekly. Ibuprofen 400 mg 5 days per week. Lamictal 200 mg twice daily. Ativan 0.5 mg as needed. Metformin 1000 mg twice daily. Zofran 4 mg as needed. Imitrex 100 mg on average twice per week. CPAP machine at night. Verapamil 180 mg daily. Lyrica 75 mg 3 times per day. REVIEW OF SYSTEMS: The patient denies nausea, vomiting, diarrhea, constipation, fever, ch ills, shortness of breath, or chest pain. She denies skin breakdown or rash. Denies lymph gland swelling or unexplained weight loss. All other review of systems negative. PHYSICAL EXAMINATION: VITAL SIGNS: Heart rate 81, respiratory rate 18, blood pressure 124/80, weight 234 pounds , height 5 feet 8 inches. GENERAL: No acute distress. Alert to person, place, time, and situation. She is wearing glasses today, reporting photophobia with current headache today. NECK: Minor limitation in range of motion. Spurling's test negative. Axial loading test negative. There is tenderness to palpation over the occipital nerves bilaterally. HEART: Regular rate and rhythm, no murmurs, no gallops. LUNGS: Clear to auscultation, no wheezing, no crackles. ABDOMEN: Obese, positive for bowel sounds. Nontender. BACK: Diffuse tenderness to palpation. Seated straight leg raise negative. Mahesh's te st negative. EXTREMITIES: Reveals no clubbing, cyanosis or edema. Fibromyalgia tender point examinati on demonstrates 12 positive fibromyalgia tender points. NEUROLOGICAL: Exam demonstrates intact memory, concentration, speech. Cranial nerves inta ct. Sensation, strength, coordination, reflexes intact in all 4 extremities. DATABASE: No new imaging or laboratory data available for review. ASSESSMENT: 1. Chronic daily headache, ICD-10 R51. 2. Migraine headaches without aura, without status migrainous, not intractable, ICD-10 G4 3.009. 3. Medication overuse headaches, ICD-10 G44.40. 4. Fibromyalgia, ICD-10 M79.7. PLAN: Ms. Lockwood is doing better with current treatment, but she is still having persist ing headaches. At this time, she is advised that she needs to avoid all exposure to tobacc o smoke, as secondhand smoke could be contributing towards rebound headaches. She is advis ed to avoid all consumption of caffeine as it may also be contributing to headaches. We h howiee asked her to avoid all ibuprofen. Her current rate of ibuprofen use combined with curr ent rate of sumatriptan use certainly could be causing rebound headaches. We discussed delfino t she needs to limit her use of abortive pain medication to no more than 3 doses per week and no more than 9 doses per month. For this reason, she should probably only used sumatri ptan only on when headaches are bad enough to warrant so. Other than that, she should like ly avoid ibuprofen at this time. She will increase Lyrica. Increasing Lyrica may help glen at her underlying fibromyalgia symptoms. May also gradually improve headaches over time. She will take Lyrica 75 mg 1 in the morning, 1 in the afternoon, and 2 at night for 7 days . After that, she will take 1 in the morning, 1 in the afternoon, and 1 with dinner and th en 2 at night. Hopefully, this gradual increase in Lyrica will give her further control of headache symptoms. She will return to clinic in 2 months' time to review management of he adache symptoms. Thank you for allowing me to be involved in the care of your patient. If you have any ques tions regarding the care of Ms. Lockwood, please do not hesitate to call. LEONIDAS MOHR JR, MD Dictated by LEONIDAS MOHR JR, MD 11/14/2015 13:00:02 Transcribed on 11/15/2015 06:18:54 by job# [id number] Confirmation #: [id number] signed by Leonidas Mohr MD at 11/19/2015 12:38 PM P Harriet, Leonidas Irving MD - 11/14/2015 9:29 AM PDTThis office note has been dictated. Report Confirmation# [id number] signed by Leonidas Mohr MD at 11/14/2015 1:00 PM PDTdocumented in this encounter Plan of [...] | | migrainosus | + + | Medication overuse headache Drug induced headache, not elsewhere classified | + + | Fibromyalgia Mylagia and myositis, unspecified | + + documented in this encounter
--- OUTSIDE RECORDS SUMMARY | ~2019-12-19 | XMS | Encounter Summary ---
Demographics + + + | Address | [address] | | | [place] [address] | + + + | Home Phone [...] Team Providers + +------+ + | Care Balance Weigher Name | Role | Phone | + [...] | 10/15/ | Telephone | [facility] | Patrick England MD | Other (dizzy and | | 2016 | | GASTROENTEROLOGY | [address] | side pain) | | | | [address] | [address] [place], [place] | | | | | [address] [place], [place] | [address] | | | | | [address] | | | | | | [phone] | | | +--------+ + + + [...]
--- OUTSIDE RECORDS SUMMARY | ~2019-12-19 | XMS | Encounter Summary ---
Demographics + + + | Address | [address] | | | [place] [address] | + + + | Home Phone [...] | Author | [facility] | | | and [place] | + + + | Organization | [facility] | | [...] Team Providers + +------+ + | Care Carpet Inspector Finished Name | Role | Phone | + +------+ + | Teena Busch DATA ANALYST ETL DEVELOPER | PCP | | + +------+ + [...] | occipital | [address] | | | | n | neuralgia | [address] | [place], | | | | | Procedures | [place], | [place] [address] | | | | | [place] INJECT | [place] [address] | Phone: | | | | | NERV | Phone: | [phone] | | | | | GREGORIO MILLER | [phone] | Fax: | | | | | OCCIPTL [place] | Fax: | [phone] | | | | | BETAMETHASON | [phone] | | | | | | E [...] of medial | MD Erasmo | [address] | | | | n | meniscus, | [address] | [place], | | | | | current | [place] | [place] [address] | | | | | injury, | [place], [place] | Phone: | | | | | right knee, | [address] | [phone] | | | | | subsequent | Phone: | Fax: | | | | | encounter | [phone] | [phone] | | | | | review | Fax: | | | | | | response to | [phone] | | | | | | lyrica, [...] + + | 01/15/ | Office | [facility] | Leonidas Mohr, | Chronic daily | | 2015 | Visit | PHYSIATRY [address] | MD [address] | headache (Primary | | | | [address] | [place] | Dx); Bilateral | | | | [place] | [address] | occipital neuralgia; | | | | [address] | | Migraine without | | | | [phone] | | aura and without | | [...] MD - 01/15/2015 4:06 PM PST [facility] PHYSIATRY [address] [facility] [id number] OFFICE NOTE LEONIDAS MOHR JR, MD Patient: LUZ MARIA LOCKWOOD Admitting: MR #: [id number] LOC: PT TYPE: Adm Date: 01/15/2015 : [...] greater occipital nerve blocks. She has requested [facility] to receive this procedure. She indicates that recently she was approved for [facility]. She would like to move forward with [...] 01/15/2015 16:06:49 Transcribed on 01/16/2015 07:44:19 by [facility] job# [id number] Confirmation #: [id number] signed by Leonidas Mohr MD at 01/16/2015 1:00 PM P Hudson, Leonidas Irving MD - 01/15/2015 12:28 PM PSTThis office note has been dictated. Job ID# [id number] signed by Leonidas Mohr MD at 01/15/2015 [...]
--- OUTSIDE RECORDS SUMMARY | ~2019-12-19 | XMS | Encounter Summary ---
Demographics + + + | Address | [address] | | | [place] [address] | + + + | Home Phone | | + + + | Preferred Language | Unknown | + + + | Marital Status | | + + + | Adventism Affiliation | 1013 | + + + [...] Team Providers + +------+ + | Care Early Childhood Teacher Name | Role | Phone | [...] | Audiology | Diagnoses | Huddleston, | Do Not Use | | | Services | | Benign | Leonidas Irving MD | - [facility] [place] | | | Required | | paroxysmal | [address] | Audiology And | | | | | positional | [address] | Hearing Aid | | | | | vertigo | [place], | Services [address] | | | | | Procedures | [place] [address] | [address] | | | | | 10/25 PEND | Phone: | [address] | | | | | [place] | [phone] | [place], | | | | | | Fax: | [place] [address] | | | | | | [phone] | Phone: | | | | | | | [phone] | | | | | | | Fax: | | | | | | | [phone] | +--------+ + + + + + Encounter Details +--------+---------+ + + + | Date | Type | Department | Care Team | Description | +--------+---------+ + + + | 11/27/ | Office | [facility] | Leonidas Huddleston, | Dizziness and | | 2015 | Visit | AUDIOLOGY AND | MD [address] | giddiness (Primary | | | | HEARING AID SERVICES | [place], [place] | Dx) | | | | [address] | [address] | | | | | [address] [facility] | | | | | | [place] [address] | Ganesh, Nigel, MS | | | | | [phone] | CCC-A [address] | | | | [address] [place] | | | | | | [place] [address] | | | | | | [phone] | | | | | | | [...] of this encounter Progress Notes Nigel Andersen, CCC-A - 11/27/2014 3:09 PM PDTReferring Provider: [...] Recommendation: Dizziness. Follow-up care with Dr. Huddleston, . Thank you. documented in thi s encounter [...]
--- OUTSIDE RECORDS SUMMARY | ~2019-12-19 | XMS | Encounter Summary ---
Demographics + + + | Address | [address] | | | [place] [address] | + + + | Home Phone | | + + + | Preferred Language | Unknown | + + + | Marital Status | | + + + | Islam Affiliation | 1013 | + + + [...] Team Providers + +------+ + | Care Sound Equipment Mechanic Name | Role | Phone | + [...] + + | 04/14/ | Office | [facility] | Sundeep Ba PA | CONSUELO on CPAP (Primary | | 2016 | Visit | SLEEP DISORDER [address] | [address] | Dx) | | | | [address] [place] | [place] | | | | | [place] [address] | [address] | | | | | [phone] | | | +--------+---------+ + + + [...] AirSense 10 with nasal mask obtained from: [employer] in [place] pressure: 9-20 cm (lowered to 4-8 cm [...] Exam Assessment: Problem #1: OBSTRUCTIVE SLEEP APNEA (BVB37-T52.33) This is controlled with CPAP. She has [...] spent in counseling. Sundeep Ba PA-C cc: [place]STON Lott documented in this enco unter Plan of Treatment Not on filedocumented as of this encounter Visit Diagnoses + + | Diagnosis | + + | CONSUELO on CPAP - Primary Obstructive sleep apnea (adult) (pediatric) | + + documented in this encounter
--- OUTSIDE RECORDS SUMMARY | ~2019-12-19 | XMS | Encounter Summary ---
Demographics + + + | Address | [address] | | | [place] [address] | + + + | Home Phone [...] + + + | Author | [facility] | | | and [place] | + + + | Organization | [facility] | | | and [...] Providers + +------+ + | Care Senior Military Analyst Name | Role | Phone | + +------+ + | Abimael Devlin MD | PCP | | + +------+ + Reason for Visit + +--------+ + | Reason | Onset | Comments | | | Date | | + +--------+ + | Procedure | 09/24/ | colon screen | | | 2016 | | + +--------+ + Encounter Details +--------+ + + + + | Date | Type | Department | Care Team | Description | +--------+ + + + + | 09/24/ | Telephone | [facility] [place] | Patrick England MD | Procedure (colon | | 2017 | | GASTROENTEROLOGY | [address] [place] | screen ) | | | | [address] [place] | [address] [place], [place] | | | | | [address] [place], [place] | [address] | | | | | [address] | | | | | | [phone] | | | +--------+ + + + [...] this encounter Miscellaneous Notes Telephone Encounter - Beti Arzate RN - 09/24/2016 10:48 AM PDTScheduled pt for pr opofol colon screen with Dr. England on 10/14/16 at 0930; no prev colon screen; hx of diverticul osis; THC use and CONSUELO; reviewed medication, surg hx and allergies; reviewed bowel prep; rx t o [facility]; info mailed to pt; completed case request order, notes to [facility] gonzalez signed by Beti Arzate RN at 09/24/2016 10:49 AM PDTdocumented in this encount er Plan of Treatment Not on filedocumented as [...]
--- OUTSIDE RECORDS SUMMARY | ~2019-12-19 | XMS | Encounter Summary ---
Demographics + + + | Address | [address] | | | [place] [address] | + + + | Home Phone [...] + + + | Author | [facility] | | | and [place] | + + + | Organization | [facility] | | [...] Team Providers + +------+ + | Care International Affairs Vice President Name | Role | Phone | + [...] | | | | [address] | [place] [address] | | | | | [place] [address] | | | | | | [phone] | | | +--------+ + + + [...]
--- OUTSIDE RECORDS SUMMARY | ~2019-12-19 | XMS | Encounter Summary ---
Demographics + + + | Address | [address] | | | [place] [address] | + + + | Home Phone [...] + | Author | [facility] | | | and [place] | + + + | Organization | [facility] | | | and [...] Providers + +------+ + | Care Special Service Officer Name | Role | Phone | + +------+ + | Teena Busch NP | PCP | | + +------+ + Reason for Visit +--------+--------+ + | Reason | Onset | Comments | | | Date | | +--------+--------+ + | Other | 02/18/ | | | | 2014 | | +--------+--------+ + Encounter Details +--------+ + + + + | Date | Type | Department | Care Team | Description | +--------+ + + + + | 02/18/ | Telephone | [facility] | Sundeep Ba PA | Other | | 2014 | | SLEEP DISORDER [address] | [address] | | | | | [address] [place] | [place], [place] | | | | | [place] [address] | [address] | | | | | [phone] | | | +--------+ + + + [...] this encounter Miscellaneous Notes Telephone Encounter - Ingris Su, Junior Account Executive - 02/19/2015 9:45 AM Gregg valenzuela lled back, She was notified regarding KIMI Talbot. Rx for pressure changes reid denisee been faxed to [facility]). Luz Maria will give this a try and follow up wi th KIMI Talbot at her next appointment. elephone Encounter - Ingris Su Junior Account Executive - 02/19/2015 9:36 AM PSTCalled unable to leave message no voicemail. elephone Encounter - Ra rene Su Medical Assistant - 02/18/2015 11:48 AM Gregg called yesterday complaining of p ressure in her ears. She thinks her CPAP may be causing this. KIMI Talbot is out of the office till next week on . Told her I would check with him at that time but, recommbeth ornelas she call her primary care physicians office to make she's not having any other issues. KIMI Talbot did come into the office for a brief moment was able to ask him what his tho ught were. KIMI Talbot asked that I give call checking to see how her night went and if the pressure in her ears had continued and offer her to lower her pressures on her CPAP and see if this helps at all. Called and was unable to contact or leave a message as there was n o voice mail set up will try again later. documented in this encounter Plan of Treatment Not on filedocumented as of this encounter Visit Diagnoses Not on filedocumented in this encounter"
--- OUTSIDE RECORDS SUMMARY | ~2019-12-19 | XMS | Encounter Summary ---
[...] | Author | [facility] [place] [facility] | | | and [place] | + + + | Organization | [facility] | | | [...] Providers + +------+ + | Care Highway Painter Name | Role | Phone | [...] | | | | CENTER [address] | [place] | laterality (Primary | | | | [place] | [address] | Dx) | | | | [address] | | | | | | [phone] | | | +--------+ + + + [...] Leung MD - 12/20/2014 10:40 AM PDT [facility] Luz Maria Kitchen [facility] Emergency Department Encounter Note [address] [place] [address] PCP:Wicho Starkey MD [phone] CHIEF COMPLAINT: Knee [...]
--- OUTSIDE RECORDS SUMMARY | ~2019-12-19 | XMS | Encounter Summary ---
Demographics + + + | Address | [address] | | | [place] [address] | + + + | Home Phone [...] Author | [facility] | | | and [place] | + + + | Organization | [facility] | | | [...] Team Providers + +------+ + | Care Child Adolescent Psychiatrist Name | Role | Phone | + [...] + + | 01/08/ | Office | [facility] | Leonidas Mohr, | Fibromyalgia | | 2016 | Visit | PHYSIATRY [address] | MD [address] | (Primary Dx); | | | | [address] | [place], [place] | Chronic daily | | | | [place] | [address] | headache; Migraine | | | | [address] | | without aura and | | | | [phone] | | without status | | | [...] MD - 01/09/2016 12:52 PM PDT [facility]SIATRY [address] [facility] [address] OFFICE NOTE LEONIDAS MOHR JR, MD Patient: LUZ MARIA LOCKWOOD Admitting: MR #: [id number] LOC: PT TYPE: Adm Date: 01/09/2016 : [...] returns to clinic today to review silas gement of symptoms. She is still working on [...] fibromyalgia pain was reduced when on Lyrica jose eng. She denies any severe pain at this [...] 09/2015. She has not yet completed the Cartour work. CBC was also requested at the [...] 01/09/2016 12:52:20 Transcribed on 01/10/2016 09:17:55 by [facility] job# [id number] Confirmation #: [id number] cc: ABIMAEL DEVLIN MD Leonidas Mohr MD - 01/09/2016 12:40 PM PDTThis office note has been dictated. Report Confirmation# [id number] signed by Leonidas Mohr MD at 01/09/2016 [...]
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
--- OUTSIDE RECORDS SUMMARY | ~2019-12-19 | XMS | Encounter Summary ---
Demographics + + + | Address | [address] | | | [place] [address] | + + + | Home Phone [...] Team Providers + +------+ + | Care Career Center Advisor Name | Role | Phone | [...] [place] | | | | | [address] [place], [place] | [address] | | | | | [address] | | | | | | [phone] | | | +--------+ + + + [...]
--- OUTSIDE RECORDS SUMMARY | ~2019-12-19 | XMS | Encounter Summary ---
Demographics + + + | Address | [address] | | | [place] [address] | + + + | Home Phone | | + + + | Preferred Language | Unknown | + + + | Marital Status | | + + + | Buddhism Affiliation | 1013 | + + + | Race | White | + + + | Ethnic Group | Not or | + + + Author + + + | Author | [facility] | | | and [place] | + + + | Organization | [facility] | | | and [...] Team Providers + +------+ + | Care Enlisted Advisor Name | Role | Phone | [...] Medicine | Obstructive | Andre Arnold | [place] [address] [address] | | | Required | | sleep apnea | JrMD [address] | [place] | | | | | (adult) | [place] | [place], | | | | | (pediatric) | [place] | [place] [address] | | | | | Bipolar I | [facility] [place] | Phone: | | | | | disorder, | [address] | [phone] | | | | | most recent | Phone: | Fax: | | | | | episode (or | [phone] | [phone] | | | | | current) | Fax: | | | | | | unspecified | [phone] | | | | | | Type [...] | | | | | | | [place] POLYSOM | | | | | | | 6/>YRS SLEEP | | | | | | | 4/> ADDL | | | | | | | [place] ATTND | | | | | | | [place] POLYSOM | | | | | | | 6/>YRS SLEEP | | | | | | | W/CPAP 4/> | | | | | | | ADDL [place] | | | | | | | ATTND | | | | | | | Having [address] | | | | | | | not [address] | | | +--------+ + + + + + Encounter Details +--------+ + + + + | Date | Type | Department | Care Team | Description | +--------+ + + + + | 12/03/ | Hospital | [facility] | Andre Ugarte | Obstructive sleep | | 2015 | Encounter | MED CTR SLEEP | MD Jan [address] [place] [address] | apnea (adult) | | | | [address] [place] | [place] [facility] | (pediatric) (Primary | | | | [place], [place] | [place] [address] | Dx); [place] | | | | [address] | [phone] | (obstructive sleep | | | | [phone] | | apnea) | +--------+ + + [...] Jr., MD - 12/05/2014 1:18 PM PDTProcedure(s): [place] [address] POLYSOMNOGRAPHY W/CPAPPre-Procedure Diagnose(s): CONSUELO (obstructive sleep apnea)Post-Procedure Diagnose(s): O SA (obstructive sleep apnea) [facility] [place] [address] Split-Night Polysomnogram/Positive Airway Pressure Titration Report on Luz Maria Carmona Performed on 12/03/2014. Clinical Information: Luz Maria Carmona is a 59 y.o. female who underwent nocturnal bernardino ysomnography using a "Split-Night" Protocol on 12/03/[address] José Antonio Huddleston be cause of possible Obstructive Sleep Apnea. Technical Information: Please see technical data stored as Polysomnography under "Media" se ction in the [facility] EMR. Definitions (The AASM Manual for [...] 9-20cm is advised. Andre Ugarte Jr., MD, [facility] Sewing Trimmer Cornelia Del [facility] [place] Clinical multifocal button inspector [facility] [place] documented in th is encounter Plan of [...]
--- OUTSIDE RECORDS SUMMARY | ~2019-12-19 | XMS | Encounter Summary ---
Demographics + + + | Address | [address] | | | [place] [address] | + + + | Home Phone [...] Team Providers + +------+ + | Care Propeller Layout Worker Name | Role | Phone | + +------+ + | Abimael Devlin MD | PCP | | + +------+ + Encounter Details +--------+ + + + + | Date | Type | Department | Care Team | Description | +--------+ + + + + | 06/07/ | Hospital | [facility] | Andre Caballero | Chronic pain of both | | 2019 | Encounter | MED CTR YAZMIN Serrato MD [address] | knees | | | | [address] [place] | [place], [place] | | | | | [place], [place] | [address] | | | | | [address] | | | | | | [phone] | | | +--------+ + + + [...]
--- OUTSIDE RECORDS SUMMARY | ~2019-12-19 | XMS | Encounter Summary ---
Demographics + + + | Address | [address] | | | [place] [address] | + + + | Home Phone [...] + | Author | [facility] | | | and [place] | + + + | Organization | [facility] | | | [...] Team Providers + +------+ + | Care Wrapper Opener Name | Role | Phone | + +------+ + | Abimael Devlin MD | PCP | | + +------+ + Reason for Visit + +--------+ + | Reason | Onset | Comments | | | Date | | + +--------+ + | Medication Prior | 12/03/ | | | Authorization | 2016 | | + +--------+ + Encounter Details +--------+ + + + + | Date | Type | Department | Care Team | Description | +--------+ + + + + | 12/03/ | Telephone | [facility] [place] | Leonidas Huddleston, | Medication Prior | | 2016 | | PHYSIATRY [address] | MD [address] | Authorization | | | | [address] | [place] | | | | | [place] | [id number] | | | | | [address] | | | | | | [phone] | | | +--------+ + + + [...] this encounter Miscellaneous Notes Telephone Encounter - Avery, Ciara Alexandria A, RN - 12/15/2015 2:27 PM PDTCalled Velia Carmona to inform her that the PA form has been received, completed, and faxed to [facility] [employer] (Contently: [phone]). Patient verbalized understanding. Xavier early signed by Ciara Varela RN at 12/15/2015 2:31 PM PDTTelephone Encounte r - Ciara Varela RN - 12/11/2015 3:12 PM PDTCalled Luz Maria Carmona to f/u on her current Lyrica intake, and to inform her that the prior authorization request fro pharmacy has been received. Patient unavailable. Unable to leave voicemail. Called [facility] ([phone]) and asked for PA form to be sent to our office to start process . Once received, and completed, form will be faxed back to their office. Electronically sign ed by Ciara Varela RN at 12/11/2015 3:24 PM PDTTelephone Encounter - Ciara Chavez RN - 12/04/2015 8:30 AM Maria E Carmona called regarding her Lyrica. She states that she has only received 24 capsules out of the 150 that was ordered. S he was informed that the pharmacy was contacted on 11/25/15 to request the prior authorizati on for this medication, and that we have not received the prior authorization. Patient was i nformed that a request for the prior auth to be faxed to our office can be made again from er pharmacy. She verbalized understanding. [facility] [place] [place] and spoke with Stephania, Technical Research Scientist, and requested e prior auth form to be faxed to our office. Fax number ([phone]) was given. She verbal ized understanding. Once PA form received, patient will be contacted to update her. documented in this encounter Plan of Treatment Not on filedocumented as of this encounter Visit Diagnoses Not on filedocumented in this encounter"
--- OUTSIDE RECORDS SUMMARY | ~2019-12-19 | XMS | Encounter Summary ---
Demographics + + + | Address | [address] | | | [place] [address] | + + + | Home Phone | | + + + | Preferred Language | Unknown | + + + | Marital Status | | + + + | Muslim Affiliation | 1013 | + + + [...] Team Providers + +------+ + | Care Public Relations Senior Associate Name | Role | Phone | [...] | Specialty | Physical | Diagnoses | [facility] | [facility] | | | Services | Therapy / | | Leonidas E A, MD | Pt Op [address] | | | Required | Rehabilitatio | Fibromyalgia | [address] | [address] | | | | n | | [address] | [place], | | | | | Cervicalgia | [place], | [place] [address] | | | | | Cervical | [place] [address] | Phone: | | | | | dystonia | Phone: | [phone] | | | | | History of | [phone] | Fax: | | | | | cervical | Fax: | [phone] | | | | | spinal | [phone] | | | | | | surgery [...] | | | Rehabilitatio | neuralgia | MEDICAL RECORDS TECH [address] | | | | n | neck pain | [address] | [place], | | | | | follow up | [address] | [place] [address] | | | | | | [place], | Phone: | | | | | | [place] [address] | [phone] | | | | | | Phone: | Fax: | | | | | | [phone] | [phone] | | | | | | Fax: | | | | | | | [phone] | | +--------+--------+ + + + + Encounter Details +--------+---------+ + + + | Date | Type | Department | Care Team | Description | +--------+---------+ + + + | 07/31/ | Office | [facility] | Leonidas Mohr, | Chronic daily | | 2015 | Visit | PHYSIATRY [address] | MD [address] | headache (Primary | | | | [address] | [place] | Dx); Migraine | | | | [place] | [address] | without aura and | | | | [address] | | without status | | | | [phone] | | migrainosus, not | | | [...] physical therapy within one week, please contact [facility]. Once you have completed physical therapy please continue the home exercise progr am as outline by physical therapy, indefinitely. Return to the clinic in 3 months. documented in this encounter Progress Notes Leonidas Mohr MD - 08/01/2015 10:48 AM PDT [facility] PHYSIATRY [address] [facility] [id number] OFFICE NOTE LEONIDAS MOHR JR, MD Patient: LUZ MARIA LOCKWOOD Admitting: MR #: [id number] LOC: PT TYPE: Adm Date: 08/01/2015 : [...] that she also ran out of her Ici Montreuil a month ago. Since running out of her CerRx, her headaches have been worse. She has had a headache all day every day for more th an 2 weeks. Prior to being on both ibuprofen and naproxen at the same time, as well as landy or to her running out of Planet Dailya, she was having headaches on a weekly [...] Transcribed on 08/01/2015 11:20:21 by viktoria job# [id number] Confirmation #: [id number] cc: JANELLE BUSCH NP [facility] Center[facility] - 08/01/2015 10:40 AM PDTThis office note has been dictated. Job ID# [id number] signed by Leonidas Mohr MD at 08/01/2015 [...]
--- OUTSIDE RECORDS SUMMARY | ~2019-12-19 | XMS | Encounter Summary ---
Demographics + + + | Address | [address] | | | [place] [address] | + + + | Home Phone [...] Team Providers + +------+ + | Care Tractor Mechanic Helper Name | Role | Phone | [...] PHYSIATRY [address] | MD [address] | Assistance | | | | [address] | [place] | | | | | [place] | [address] | | | | | [address] | | | | | | [phone] | | | +--------+ + + + [...]
--- OUTSIDE RECORDS SUMMARY | ~2019-12-19 | XMS | Encounter Summary ---
Demographics + + + | Address | [address] | | | [place] [address] | + + + | Home Phone [...] Team Providers + +------+ + | Care Bundle Person Name | Role | Phone | [...] + | 10/19/ | Office | [facility] | Sundeep Ba PA | CONSUELO on CPAP (Primary | | 2016 | Visit | SLEEP DISORDER [address] | [address] | Dx) | | | | [address] [place] | [place] | | | | | [place] [address] | [address] | | | | | [phone] | | | +--------+---------+ + + + [...] AirSense 10 with nasal mask obtained from: [employer] in [place] pressure: 9-20 cm (lowered to 4-8 cm [...] Exam Assessment: Problem #1: OBSTRUCTIVE SLEEP APNEA ([id number]-N71.33) This is controlled with CPAP. She continues [...] months, sooner prn. Fifteen minutes were spent conh-id-zpde, w ith the majority of time spent in counseling. Sundeep Ba PA-C cc: Teena Busch ROAD TRAIN DRIVER-DARRYN documented in this enco unter Plan of Treatment Not on filedocumented as of this encounter Visit Diagnoses + + | Diagnosis | + + | CONSUELO on CPAP - Primary Obstructive sleep apnea (adult) (pediatric) | + + documented in this encounter
--- OUTSIDE RECORDS SUMMARY | ~2019-12-19 | XMS | Encounter Summary ---
Demographics + + + | Address | [address] | | | [place] [address] | + + + | Home Phone [...] Team Providers + +------+ + | Care Project Manager/Design Manager Name | Role | Phone | [...] | | | | [place] | [address] | | | | | [address] | | | | | | [phone] | | | +--------+ + + + [...]
--- OUTSIDE RECORDS SUMMARY | ~2019-12-19 | XMS | Encounter Summary ---
Demographics + + + | Address | [address] | | | [place] [address] | + + + | Home Phone [...] Team Providers + +------+ + | Care Wrist Hemmer Name | Role | Phone | + [...] + + | 01/12/ | Telephone | [facility] | Leonidas Huddleston, | Other | | 2015 | | PHYSIATRY [address] | [address] | (Pharmacy/Medication | | | | [address] | [place] | verification) | | | | [place] | [address] | | | | | [address] | | | | | | [phone] | | | +--------+ + + + [...] her preferred Pharmacy is: [facility] [facility] [place] - [address] [facility] ([phone]). Called patient's preferred Pharmacy. Spoke with Pharmacist: [...] daily Authorizing Provider: Leonidas Huddleston MIGUEL ANGEL: [id number] Loyd verbalized understanding. Called [facility] ([address] [address]; ) and spoke with Angela. She was [...]
--- OUTSIDE RECORDS SUMMARY | ~2019-12-19 | XMS | Encounter Summary ---
Demographics + + + | Address | [address] | | | [place] [address] | + + + | Home Phone [...] Author | [facility] | | | and [place] | + + + | Organization | [facility] | | | [...] Team Providers + +------+ + | Care Data Report Analyst Name | Role | Phone | [...] + + | 06/07/ | Office | [facility] | Andre Caballero | Chronic pain of both | | 2019 | Visit | ORTHOPEDIC SURGERY | MD Rojelio [address] | knees (Primary Dx); | | | | [address] | [place] | Primary | | | | [place] | [address] | osteoarthritis of | | | | [address] | | both knees | | | | [phone] | | | +--------+---------+ + + + [...]
--- OUTSIDE RECORDS SUMMARY | ~2019-12-19 | XMS | Encounter Summary ---
Demographics + + + | Address | [address] | | | [place] [address] | + + + | Home Phone | | + + + | Preferred Language | Unknown | + + + | Marital Status | | + + + | Restorationism Affiliation | 1013 | + + + [...] Team Providers + +------+ + | Care Tray Drier Name | Role | Phone | + [...] + | 04/05/ | Office | [facility] | Sundeep Ba PA | CONSUELO on CPAP (Primary | | 2019 | Visit | SLEEP DISORDER [address] | [address] | Dx) | | | | [address] [place] | [place] | | | | | [place] [address] | [address] | | | | | [phone] | | | +--------+---------+ + + + [...] AirSense 10 Mask type: nasal mask DME: [facility] in [place] pressure: 9-20 cm (lowered to 4-8 cm [...] Exam Assessment: Problem #1: OBSTRUCTIVE SLEEP APNEA (ZAH09-W82.33) This is controlled with CPAP. She improved her usage with her CPAP, but is still inconsist ent with it. Plan: 1. She is to continue with CPAP indefinitely. 2. She is to work toward wearing her CPAP 100% of the time she is asleep. I will follow up again in 2 months, sooner prn. Fifteen minutes were spent qmyu-im-kgvs, w ith the majority of time spent [...]
--- OUTSIDE RECORDS SUMMARY | ~2019-12-19 | XMS | Encounter Summary ---
Demographics + + + | Address | [address] | | | [place] [address] | + + + | Home Phone [...] Team Providers + +------+ + | Care Slubber Frame Changer Name | Role | Phone | + [...] | Leonidas Irving MD | [address] | | | | | pain | [address] | [place], | | | | | Swelling of | [address] | [place] | | | | | right knee | [place], | [address] | | | | | joint | [place] [address] | Phone: | | | | | Procedures | Phone: | [phone] | | | | | MRI Knee | [phone] | Fax: | | | | | Right wo | Fax: | [phone] | | | | | Contrast | [phone] | | +--------+--------+ + + + + [...] | Leonidas Irving MD | [address] | | | | | pain | [address] | [place], | | | | | Swelling of | [address] | [place] | | | | | right knee | [place], | [address] | | | | | joint | [place] [address] | Phone: | | | | | Procedures | Phone: | [phone] | | | | | MRI Knee | [phone] | Fax: | | | | | Right wo | Fax: | [phone] | | | | | Contrast | [phone] | | +--------+--------+ + + + + Encounter Details +--------+ + + + + | Date | Type | Department | Care Team | Description | +--------+ + + + + | 12/10/ | Hospital | [facility] | Leonidas Huddleston, | Right knee pain; | | 2014 | Encounter | MED CTR MRI [address] | MD [address] | Swelling of right | | | | [address] [place], | [place], [place] | knee joint | | | | [place] [address] | [address] | | | | | [phone] | | | +--------+ + + + [...] PROTOCOL: Axial proton density fat sat, sagittal [facility] | | proton density, coronal proton density [...] + | [address] | [address] | [place] | [phone] | | [facility] | | [address] | | | - IMAGING | | [...]
--- OUTSIDE RECORDS SUMMARY | ~2019-12-19 | XMS | Encounter Summary ---
Demographics + + + | Address | [address] | | | [place] [address] | + + + | Home Phone [...] + + + | Author | [facility] | | | and [place] | + + + | Organization | [facility] | | | [...] Team Providers + +------+ + | Care Buy Boat Operator Name | Role | Phone | [...] | PHYSIATRY [address] | [address] | | | | | [address] | [place] | | | | | [place] | [address] | | | | | [address] | | | | | | [phone] | | | +--------+--------+ + + + [...] COURT PLACE - [place] [address] (Pharmacy) and asked about patient's Lyrica. Pharmacy staff states that a prior auth was needed. She was informed that the fax wasn't re ceived, a request for form to be re-faxed has been sent, and fax number given ([phone]) . Called [place] Carmona and she [...]
--- OUTSIDE RECORDS SUMMARY | ~2019-12-19 | XMS | Encounter Summary ---
Demographics + + + | Address | [address] | | | [place] [address] | + + + | Home Phone [...] Team Providers + +------+ + | Care Rocket Motor Tester Name | Role | Phone | [...] | Specialty | Sleep | Diagnoses | Fla[place] | [facility] | | | Services | Medicine | | Leonidas Irving MD | [facility] | | | Required | | Fibromyalgia | [address] | Disorder [address] | | | | | Snoring | [address] | [address] | | | | | Apnea | [place], | [place], | | | | | | [place] [address] | [place] [address] | | | | | | Phone: | Phone: | | | | | | [phone] | [phone] | | | | | | Fax: | Fax: | | | | | | [phone] | [phone] | +--------+ + + + + + [...] | | | | | cervical | [address] | | | | | | region | [place], | | | | | | Cervical | [place] [address] | | | | | | spondylosis | Phone: | | | | | | Cervicalgia | [phone] | | | | | | Status | Fax: | | | | | | post | [phone] | | | | | | cervical [...] Medicine and | Neck pain | Wicho [place] MD [address] | | | | Rehabilitatio | | MD Erasmo | [address] | | | | n | | [address] | [place], | | | | | | [place] | [place] [address] | | | | | | [place] | Phone: | | | | | | [address] | [phone] | | | | | | Phone: | Fax: | | | | | | [phone] | [phone] | | | | | | Fax: | | | | | | | [phone] | | +--------+--------+ + + + + Encounter Details +--------+---------+ + + + | Date | Type | Department | Care Team | Description | +--------+---------+ + + + | 08/21/ | Office | [facility] | Leonidas Mohr, | Cervicalgia (Primary | | 2014 | Visit | PHYSIATRY [address] | [address] | Dx); Cervical | | | | [address] | [place] | spondylosis; | | | | [place] | [address] | Cervical spinal | | | | [address] | | stenosis; Status | | | | [phone] | | post cervical spinal | | [...] physical therapy within one week, please contact [facility]. Once you have completed physical therapy please [...] MD - 08/21/2014 5:21 PM PDT [facility] PHYSIATRY [address] [facility] [address] OFFICE NOTE LEONIDAS MOHR JR, MD Patient: LUZ [place]IA [place]OCKWOOD Admitting: MR #: [id number] LOC: PT TYPE: Adm Date: 08/21/2014 : [...] indicates that her pain is too severe. Sh e indicates that she has been in [...] triceps, wrist dorsiflexion, finger abduction and hand surgery aid; 4+/5 hip flexion, knee flexion, knee extension, [...] 17:21:09 Transcribed on 08/22/2014 01:15:33 by job# [id number] Confirmation #: [id number] cc: WICHO STARKEY MD Leonidas Mohr MD - 08/21/2014 1:53 PM PDTThis office note has been dictated. Job ID# [id number] signed by Leonidas Mohr MD at 08/21/2014 [...] +--------+ + + | * [facility] [place] | Outpatient | Routin | Fibromyalgia | [...]
--- OUTSIDE RECORDS SUMMARY | ~2019-12-19 | XMS | Encounter Summary ---
Demographics + + + | Address | [address] | | | [place] [address] | + + + | Home Phone [...] Team Providers + +------+ + | Care Mainspring Winder Name | Role | Phone | + [...] | Leonidas Irving MD | [address] | | | | | pain | [address] | [place], | | | | | Swelling of | [address] | [place] | | | | | right knee | [place], | [address] | | | | | joint | [place] [address] | Phone: | | | | | Procedures | Phone: | [phone] | | | | | MRI Knee | [phone] | Fax: | | | | | Right wo | Fax: | [phone] | | | | | Contrast | [phone] | | +--------+--------+ + + + + [...] | PHYSIATRY [address] | [address] | neuralgia (Primary | | | | [address] | [place] | Dx); Chronic daily | | | | [place] | [address] | headache; | | | | [address] | | Fibromyalgia; Right | | | | [phone] | | knee pain; Swelling | | [...] AM PDTIt may be worth applying for [facility] care at the hospital to see if [...] nerve blocks can not be done by [facility] we will request Botox injections for chroni c daily headache. We may taper up Lyrica more in the future. documented in this encounter Progress Notes Leonidas Huddleston MD - 12/02/2014 12:38 PM PDT [facility] PHYSIATRY [address] [facility] [address] OFFICE NOTE LEONIDAS HUDDLESTON JR, MD Patient: LUZ [place]IA [place]OCK[place] Admitting: MR #: [id number] LOC: PT TYPE: Adm Date: 12/02/2014 : [...] headaches. She has been on gabape ntin custodial. 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 DATABASE: No new imaging or laboratory data [...] of our hospital and request application for [facility] care. We discussed that if she qualifies, hopefully we can provide this type of p rocedure for her through [facility]yan from the hospital. We discussed that she may or may not q ualify for the [facility] care. If she is approved for [facility] care, we will plan to move for price with greater occipital nerve blocks through [facility] care. If she cannot receive [facility] care, she will return to clinic in the future. We would then consider Botox chemodener vation of facial and neck innervated muscles under needle EMG guidance for the treatment of chronic daily headaches. She has been on gabapentin custodial. She does not believe it is helping. [...] her. If she cannot receive approval for [facility] care, we will consider glen ating her [...] Transcribed on 12/02/2014 14:48:31 by viktoria job# [id number] Confirmation #: [id number] cc: WICHO STARKEY MD Leonidas Huddleston MD - 12/02/2014 11:33 AM PDTThis office note has been dictated. Job ID# [id number] signed by Leonidas Huddleston MD at 12/02/2014 [...] right knee swelling. COMPARISON: Right knee | [facility] | | x-ray 12/04/2014. PROTOCOL: Axial proton density fat sat, sagittal | [facility] | | proton density, coronal proton [...] + + | Performing | Address | City/State[facility] | Phone Number | | Organization | | | | + + + + + | [facility] | [address] | [place] | [phone] | | [facility] | | [address] | | | - IMAGING | | [...] None. FINDINGS:Frontal weightbearing views of both | [facility] | | knees. A lateral view of [...] + | [facility] | [address] | [place] | [phone] | | [facility] | | [address] | | | - IMAGING | | [...]
--- OUTSIDE RECORDS SUMMARY | ~2019-12-19 | XMS | Encounter Summary ---
Demographics + + + | Address | [address] | | | [place] [address] | + + + | Home Phone [...] + + + | Author | [facility] | | | and [place] | + + + | Organization | [facility] | | [...] Providers + +------+ + | Care Insurance Sales Supervisor Name | Role | Phone | [...] | | | | [address] [place] | | | | | | [address] [place] | | | | | | [address] | | | | | | [phone] | | | +--------+ + + + [...]
--- OUTSIDE RECORDS SUMMARY | ~2019-12-19 | XMS | Encounter Summary ---
Demographics + + + | Address | [address] | | | [place] [address] | + + + | Home Phone [...] | [facility] | | | and [place] | + + + | Organization | [facility] | | [...] Team Providers + +------+ + | Care Fast Food Server Name | Role | Phone | + [...] + + | 03/15/ | [facility] | [facility] | Andre Caballero | Primary | | 2019 | Visit | ORTHOPEDIC SURGERY | MD Rojelio [address] | osteoarthritis of | | | | [address] [place] | [place] | right hip (Primary | | | | [place] | [address] | Dx) | | | | [address] | | | | | | [phone] | | | +--------+---------+ + + + [...] cessation. She also will work diligently on [employer] and will be seen back or office [...]
--- OUTSIDE RECORDS SUMMARY | ~2019-12-19 | XMS | Encounter Summary ---
Demographics + + + | Address | [address] | | | [place] [address] | + + + | Home Phone [...] | [facility] | | | and [place] | + + + | Organization | [facility] | | | [...] Team Providers + +------+ + | Care Promotion Producer Name | Role | Phone | + [...] PHYSIATRY [address] | MD [address] | Authorization | | | | [address] | [place] | | | | | [place] | [address] | | | | | [address] | | | | | | [phone] | | | +--------+ + + + [...] has been received, completed, and faxed to [facility] [employer] ([employer]: [phone]). Patient verbalized understanding. Xavier early signed by Ciara Varela RN at 12/15/2015 2:31 PM PDTTelephone Encounte r - Ciara Varela RN - 12/11/2015 3:12 PM PDTCalled Luz Maria Carmona to f/u on her current Lyrica intake, and to inform her that the prior authorization request fro pharmacy has been received. Patient unavailable. Unable to leave voicemail. Called [facility] ([phone]) and asked for PA form to be [...] from er pharmacy. She verbalized understanding. [facility] [place], [place] and spoke with Stephania, Yard Motor Operator, and requested e prior auth form to be faxed to our office. Fax number ([phone]) was given. She verbal ized understanding. Once PA form received, patient will be contacted to update her. documented in this encounter Plan of Treatment Not on filedocumented as of this encounter Visit Diagnoses Not on filedocumented in this encounter"
--- OUTSIDE RECORDS SUMMARY | ~2019-12-19 | XMS | Encounter Summary ---
Demographics + + + | Address | [address] | | | [place] [address] | + + + | Home Phone [...] + | Author | [facility] | | | and [place] | + + + | Organization | [facility] | | | [...] Providers + +------+ + | Care Rn Intern Name | Role | Phone | [...] PHYSIATRY [address] | MD [address] | | | | | [address] | [place], [place] | | | | | [place], [place] | [address] | | | | | [address] | | | | | | [phone] | | | +--------+ + + + [...]
--- OUTSIDE RECORDS SUMMARY | ~2019-12-19 | XMS | Encounter Summary ---
Demographics + + + | Address | [address] | | | [place] [address] | + + + | Home Phone | | + + + | Preferred Language | Unknown | + + + | Marital Status | | + + + | Quaker Affiliation | 1013 | + + + | Race | White | + + + | Ethnic Group | Not or | + + + Author + + + | Author | [facility] | | | and [place] | + + + | Organization | [facility] | | | and [...] Team Providers + +------+ + | Care Pmo Consultant Name | Role | Phone | + +------+ + PCP | Unavailable | + +------+ + Encounter Details +--------+ + + + + | Date | Type | Department | Care Team | Description | +--------+ + + + + | 11/10/ | Hospital | [facility] | Jaxon Singleton MD | Methamphetamine | | 2011 - | Encounter | CONVERSION DEP [address] | abuse; NSTEMI | | | | [address] | [place] [address] | (non-ST elevated | | 08/31/ | | [place], [place] | [phone] | myocardial | | 2011 | | [id number] | | infarction) ([facility]); | | | | [phone] | | Hyponatremia; | | | | | | Bipolar disorder, | | | | | | unspecified ([facility]); | | | | | | Hyposmolality and/or | | | | | | hyponatremia; | | | | | | Leucocytosis; | | | | | | Paranoid | | | | | | schizophrenia, | | | | | | chronic condition | | | | | | ([facility]); Seizure | | | | | | disorder ([facility]) | +--------+ + + + [...] 1:06 PM PDTFormatting of this note m ight be different from the original. Discharge Summaries by Marli Mejia RN at 11/12/11 1306 Author: Marli Mejia RN Service: (none) Author Type: Registered Nurse Filed: 11/12/11 8802 Date of Service: 11/12/11 130 Status: Signed User Experience Architect: Marli Mejia RN (Registered Nurse) Pt provided [...] Summaries by Rhoda Simpson MD at 11/12/11 2477 Author: Rhoda Simpson MD Service: (none) Author Type: Physician Filed: 11/18/11 0927 Date of Service: 11/12/11 7736 Status: Signed User Experience Architect: Rhoda Simpson MD (Physician) [facility] Service: Hospitalist Discharge Summary Date of Admission: [...] methamphetami ne use, who was transferred from [facility] after having a seizure. Please refer t o complete H&P by Dr Singleton for further details. HOSPITAL COURSE: Patient was admitted after snorting meth about 4 hours CLINICAL CODER. Patient reportedly had sei zures and palpitations [...] 11/12/2011 EGFR >60 11/12/2011 PLAN D/C to custodial. Disposition: snf Condition: Stable Code Status: Full Code Discharge [...] documented as of this encounter Progress Notes Edgardo Mcmahon, Provider Unknown - 11/12/2011 1:40 PM PDTFormatting of this note m ight be different from the original. Progress Notes by Marli Mejia RN at 11/12/111339 Author: Marli Mejia RN Service: (none) Author Type: Registered Nurse Filed: 11/12/111341 Date of Service: 11/12/111339 Status: Signed User Experience Architect: Marli Mejia RN (Registered Nurse) Security brought pt belongings up to pt. snf called and they have her set of keys. P t notified. oster , BERNARD Lorenzana - 11/12/2011 1:01 PM PDT Progress Notes by BERNARD Hugo at 11/12/11 1301 Author: BERNARD Hugo Service: (none) Author Type: Reaming Press Operator Filed: 11/12/11 1303 Date of Service: 11/12/11 130 Status: Signed User Experience Architect: BERNARD Hugo (Reaming Press Operator) Patient reports she lives in a custodial, has [place] for transportation. Pt disc harging back to custodial this afternoon. CM called [facility] transportation to [facility], provided pt room # address and this CM's contact number. [employer] stated they would send transport as soon as they could find someone. CM alerted RN of dcp approxim ate time. No other anticipated dc needs at this time. onversion Transact ion, Provider Unknown - 11/12/2011 9:57 AM PDTFormatting of this note might be different fr om the original. Progress Notes by Melissa Estrella at 11/12/11956 Author: Melissa Estrella Service: (none) Author Type: Tank Cooper Filed: 11/12/1159 Date of Service: 11/12/11956 Status: Signed User Experience Architect: Melissa Estrella (Tank Cooper) Pt didn't remember requesting a visit. Wanted prayer for her health. Shared she has difficu lty forgiving herself. Wants additional flare stitcher visits while she is in the hospital. [place] Transaction, Provider Unknown - 11/11/2011 4:26 AM PDT Progress Notes by Gelacio Bhandari RPH at 11/11/11425 Author: Gelacio Bhandari RPH Service: (none) Author Type: Pharmacist Filed: 11/11/11425 Date of Service: 11/11/11425 Status: Signed User Experience Architect: Gelacio Bhandari RPH (Pharmacist) Note ccl 115ml/min meds reviewed Pharmacy will follow rdc 0426 docume nted in this encounter H&P Notes Jaxon Singleton MD - 11/11/2011 3:53 AM PDTFormatting of this note might be different from th e original. H&P by Jaxon Singleton MD at 11/11/11352 Author: Jaxon Singleton MD Service: (none) Author Type: Physician Filed: 11/11/11400 Date of Service: 11/11/11352 Status: Signed User Experience Architect: Jaxon Singleton MD (Physician) Related Notes: Original Note by Jaxon Singleton MD (Physician) filed at 11/11/11400 [facility] Service: Hospitalist Admission History & Physical Pt: Luz Maria Lockwood AGE/SEX: 56 y.o. female ROOM: PCP: PER PT NONE : 1955 TODAY'S DATE: 11/11/2011 Date of Admission: 11/11/2011 Chief Complaint: Seizure History of Present Illness: *The patient is a 56-year-old female with a past medical history of paranoid schizophrenia, bipolar disorder, seizure disorder, diabetes, hypertension, and chronic methamphetamine use, who was transferred from [facility] after having a seizure. The patient reportedly, at 12 p.m. today, did methamphetamine with her friend and after that EMS was called because the patient was found to be having seizures. It is unclear if the patient actually had a real seizure, but she was given Ativan and was transferred to [facility]. There, at least per the records from [facility], she was witnessed to have a seizure. She was given multiple doses of Ativan, unclear how much total she got, and there she was found to be hyponatremic to around 119. She was tachycardic, in SVT which later on subsided on its own. Her urine toxicology was positive for methamphetamine and THC. Her initial troponin was 0.1 and the patient was transferred to [facility] for hyponatremia and for positive troponin levels. Her CPK was increased to 500s initially over there. When the patient was transferred over here, she was somewhat sedated after Ativan but, otherwise, not really tachycardic. Repeat labs were done which showed the hyponatremia was improved and her troponin was slightly positive at 0.48, but she did not have any chest pain. EKG was normal sinus rhythm without any ST or T-wave changes. The patient is alert and oriented x3. She corroborates with all the history. She reports that she has had a chronic seizure disorder; the last seizure was about 3 months back. She takes lamotrigine for that and follows at [facility] from [place], follows her for psychiatric disorders, and she takes Geodon for that. She does have diabetes and hypertension which are fairly well controlled with medications. She has never had a history of any cardiac symptoms in the past or any CAD. SOCIAL HISTORY She lives at . She is a smoker, 1 pack a day for 35 years, since the age of 14, so probably 20 pack years, and not an alcoholic. She takes methamphetamine on and off. She reports at this time she took less methamphetamine than before but probably she got some bad stuff, according to her. FAMILY HISTORY Family history is contributory for diabetes and also a history of CAD in father at the age of 56, an [place]. CURRENT MEDICATIONS Medications that the patient remembers are: 1. Coreg. 2. Lamotrigine. 3. Geodon. 4. Hydrocodone. 5. Naproxen. Review of Systems: A 10 point review of systems was negative except as mentioned in the HPI. PMHx: Past Medical History Diagnosis Date Disassociation disorder Schizophrenia Seizures Bipolar disorder Suicidal ideation PSHx: Past Surgical History Procedure Date Appendectomy Back surgery Neck surgery Hysterectomy Tubal ligation Prior To admission Meds: Prior to Admission medications Medication Sig Start Date End Date Taking? Authorizing Provider carvedilol (COREG) 25 MG tablet Take 25 mg by mouth 2 (two) times daily with meals. Yes Historical Provider cetirizine (ZYRTEC) 5 MG tablet Take 5 mg by mouth daily. Yes Historical Provider doxazosin (CARDURA) 1 MG tablet Take 1 mg by mouth nightly. Yes Historical Provider duloxetine (CYMBALTA) 60 MG capsule Take 60 mg by mouth daily. Yes Historical Provider estradiol (ESTRACE) 1 MG tablet Take 1 mg by mouth daily. Yes Historical Provider hydrocodone-acetaminophen (VICODIN) 5-500 MG per tablet Take 1 tablet by mouth every 4 (fou r) hours as needed. Yes Historical Provider IRON PO Take 300 mg by mouth daily. Yes Historical Provider lamotrigine (LAMICTAL) 200 MG tablet Take 200 mg by mouth 2 (two) times daily. Yes Hist orical Provider metformin (GLUCOPHAGE) 1000 MG tablet Take 1,000 mg by mouth 2 (two) times daily with meals . Yes Historical Provider naproxen (NAPROSYN) 375 MG tablet Take 375 mg by mouth 2 (two) times daily with meals. Yes Historical Provider omeprazole (PRILOSEC) 20 MG capsule Take 20 mg by mouth daily. Yes Historical Provider ziprasidone (GEODON) 80 MG capsule Take 80 mg by mouth daily with breakfast. Yes Histor ical Provider ziprasidone (GEODON) 80 MG capsule Take 160 mg by mouth nightly. Yes Historical Provide r Allergies: Allergies Allergen Reactions Other Other (See Comments) Pt states she is allergic to a psych med which she cannot remember. Family Hx: No family history on file. Social Hx: History Social History Marital Status: Single Spouse Name: N/A Number of Children: N/A Years of Education: N/A Occupational History Not on file. Social History Main Topics Smoking status: Current Everyday Smoker Smokeless tobacco: Never Used Alcohol Use: No Drug Use: Yes Special: Methamphetamines Sexually Active: Other Topics Concern Not on file Social History Narrative No narrative on file History Smoking status Current Everyday Smoker Smokeless tobacco Never Used History Alcohol Use No Physical Exam: BP 128/88 | Pulse 102 | Temp 97.6 F (36.4 C) | Resp 20 | Ht 1.753 m (5' 9") | Wt 108.86 3 kg (240 lb) | BMI 35.44 kg/m2 | SpO2 99% General Appearance: Slightly sedated but arousable, cooperative, no distress, appears st ated age Head: Normocephalic, without obvious abnormality, atraumatic Eyes: PERRL, conjunctiva/corneas clear, EOM's intact. Ears: Normal external ear canals, both ears Nose: Nares normal, septum midline, mucosa normal, no drainage or sinus tenderness Throat: Lips, mucosa, and tongue normal; teeth and gums normal Neck: Supple, symmetrical, trachea midline, thyroid: no enlargement/tenderness/nodules ; no carotid bruit or JVD Back: Symmetric, no curvature, ROM normal, no CVA tenderness Lungs: Clear to auscultation bilaterally, respirations unlabored Chest Wall: No tenderness or deformity Heart: Regular rate and rhythm, S1 and S2 normal, no murmur, rub or gallop Abdomen: Soft, non-tender, bowel sounds active all four quadrants, no masses, no organomegaly Psychiatric: Alert and oriented x 3. Intact Judgement and insight Rectal: Deferred Extremities: Extremities normal, atraumatic, no cyanosis or edema Pulses: 2+ and symmetric all extremities Skin: Skin color, texture, turgor normal, no rashes or lesions Lymph nodes: Cervical nodes normal Neurologic: CNII-XII intact, normal strength, sensation and reflexes throughout Data: CBC: Lab Results Component Value Date WBC 17.0* 11/11/2011 RBC 3.69* 11/11/2011 HGB 11.2* 11/11/2011 HCT 33.1* 11/11/2011 MCV 89.7 11/11/2011 MCH 30.4 11/11/2011 MCHC 33.9 11/11/2011 RDW 41.1 11/11/2011 PLT 318 11/11/2011 MPV 7.3 11/11/2011 DIFFTYPE AUTOMATED 11/11/2011 CMP: Lab Results Component Value Date NA 127* 11/11/2011 K 4.4 11/11/2011 CL 91* 11/11/2011 CO2 25 11/11/2011 ANIONGAP 15 11/11/2011 GLUF 100* 11/11/2011 BUN 9 11/11/2011 CREATININE 0.71 11/11/2011 BCR 13 11/11/2011 CA 8.4* 11/11/2011 PROT 6.8 11/11/2011 ALB 3.4* 11/11/2011 GLOB 3.4 11/11/2011 BILITOT 0.4 11/11/2011 ALP 26* 11/11/2011 AST 29 11/11/2011 ALT 20 11/11/2011 EGFR >60 11/11/2011 Albumin: Lab Results Component Value Date ALB 3.4* 11/11/2011 Magnesium: No results found for this basename: MG Phosphorus: No results found for this basename: PHOS PT/INR: Lab Results Component Value Date INR 1.1 11/11/2011 Troponin: Lab Results Component Value Date TROPONINI 0.48* 11/11/2011 Last 3 Troponin: Lab Results Component Value Date TROPONINI 0.48* 11/11/2011 TSH: No results found for this basename: TSH, TSHNEO, TSHREFLEX EKG: I personally reviewed the EKG. Findings: NSR, No acute ST T wave changes. IMAGING: No results found. Will order X ray chest portable. Problem List: Principal Problem: *Methamphetamine abuse Active Problems: Paranoid schizophrenia, chronic condition Bipolar disorder, unspecified Seizure disorder NSTEMI (non-ST elevated myocardial infarction) Hyposmolality and/or hyponatremia Leucocytosis Assessment and Plan: *1. Methamphetamine use. The patient presently is not very tachycardic, does not have any symptoms, any nausea or vomiting, just a mild headache. We will admit the patient. We will continue with intravenous fluids and monitor her on telemetry. No suicidal ideations or any aggressive thought. 2. Paranoid schizophrenia and bipolar disorder. We will continue her Geodon at home dose and will monitor her clinically. There is no reason for a psychiatric consult for now, as she apparently reports that she has been consulted for methamphetamine use but she has been unsuccessful before this. 3. Non-ST elevation myocardial infarction. The troponin is only very mildly positive, at 0.4. The CPK is around 600. Most likely that is because of methamphetamine use and because of her tachycardia. So, we will continue the patient's intravenous fluids. We will start the patient back on Coreg as it is a nonselective alpha- and beta-genesis and is not contraindicated for methamphetamine. The patient should be considered for a stress test, probably tomorrow morning. We will follow with her troponin levels and, if they improve after hydration and after bedrest, then she should be considered for a stress test tomorrow. She does have risk factors in terms of diabetes, hypertension, and being a smoker, and family history, too. We will hold off on aspirin for now. 4. Leukocytosis, most likely because of the seizure disorder and most likely because of her sustained seizure. We will get a UA and urine culture but no other signs of infection. Also we will order for a portable x-ray; please follow that up, too. 5. Seizure disorder, likely because of amphetamine use. We will order an EEG and will order her lamotrigine at home dose. 6. Hyponatremia, again dehydration and because of CSN disturbance, we will continue with intravenous fluids, it is improving, and will follow up BMP tomorrow morning. Patient's old records and labs that were available, were reviewed in detail and summarized as above. Code Status: No Order Primary Care Physician: PER PT NONE Jaxon Singleton MD 11/11/2011 3:53 AM documented in this encou nter Procedure Notes Ligia Edmondson ARNP - 11/12/2011 9:09 AM PDTFormatting of this note might be different fr om the original. Procedures by ANDRIY Suazo at 11/12/11908 Author: ANDRIY Suazo Service: (none) Author Type: Advanced Registered Nurse Prac titioner Filed: 11/12/11909 Date of Service: 11/12/11908 Status: Signed User Experience Architect: ANDRIY Suazo (Advanced Registered Nurse Practitioner) Procedures: 1. NM CARDIOVASCULAR STRESS TEST [[id number] (Custom)] [facility] Service: Diagnostic Imaging/Nuclear Medicine Cardiac Stress Test Note Pharmacologic Stress test was performed utilizing Lexiscan. Symptoms reported: Chest pressure 3/10, nausea; resolved. Rhythm changes: None Ectopy: None ST/T wave changes: None Medications administered: Regadenoson 0.4 mg Nuclear images to follow. LUIS EDUARDO SUAZO ARNP 11/12/2011 9:09 AM documented in this encounter ED Notes Conversion Transaction, Provider Unknown - 11/11/2011 3:28 AM PDTFormatting of this note m ight be different from the original. ED Notes by Francisco Tejada RN at 11/11/11327 Author: Francisco Tejada RN Service: (none) Author Type: Registered Nurse Filed: 11/11/11327 Date of Service: 11/11/11327 Status: Signed User Experience Architect: Francisco Tejada RN (Registered Nurse) Dr Singleton at bedside with pt. Francisco Tejada RN 11/11/11327 [place] Transaction, Provider Unknown - 11/11/2011 3:28 AM PDT ED Notes by Jesse Melendez RN at 11/11/11327 Author: Jesse Melendez RN Service: (none) Author Type: Registered Nurse Filed: 11/11/11327 Date of Service: 11/11/11327 Status: Signed User Experience Architect: Jesse Melendez RN (Registered Nurse) Hospitalist at bedside. Report to Francisco NOVA. Jesse Melendez RN 11/11/11327 [place] Transaction, Provider Unknown - 11/11/2011 2:45 AM PDT ED Notes by Jesse Melendez RN at 11/11/11244 Author: Jesse Melnedez RN Service: (none) Author Type: Registered Nurse Filed: 11/11/11244 Date of Service: 11/11/11244 Status: Signed User Experience Architect: Jesse Melendez RN (Registered Nurse) Dr. Collins at bedside. Jesse Melendez RN 11/11/11244 [place] [place] Transaction, Provider Unknown - 11/11/2011 1:37 AM PDT ED Notes by Francisco Tejada RN at 11/11/11136 Author: Francisco Tejada RN Service: (none) Author Type: Registered Nurse Filed: 11/11/11137 Date of Service: 11/11/11136 Status: Signed User Experience Architect: Francisco Tejada RN (Registered Nurse) Pt states symptoms started yesterday "when I did some bad meth" Francisco Tejada RN 11/11/11137 [place] [place] Transaction, Provider Unknown - 11/11/2011 1:36 AM PDT ED Notes by Francisco Tejada RN at 11/11/11135 Author: Francisco Tejada RN Service: (none) Author Type: Registered Nurse Filed: 11/11/11135 Date of Service: 11/11/11135 Status: Signed User Experience Architect: Francisco Tejada RN (Registered Nurse) Patient placed on telemetry, with Sa02 and routine NIBP monitoring. Telemetry floor notifie d via telephone. Francisco Tejada RN 11/11/11135 [place] Transaction, Provider Unknown - 11/11/2011 1:35 AM PDT ED Notes by Francisco Tejada RN at 11/11/11134 Author: Francisco Tejada RN Service: (none) Author Type: Registered Nurse Filed: 11/11/11134 Date of Service: 11/11/11134 Status: Signed User Experience Architect: Francisco Tejada RN (Registered Nurse) Dr Collins at bedside with pt. Francisco Tejada RN 11/11/11134 [place] Transaction, Provider Unknown - 11/11/2011 1:35 AM PDT ED Notes by Francisco Tejada RN at 11/11/11134 Author: Francisco Tejada RN Service: (none) Author Type: Registered Nurse Filed: 11/11/11134 Date of Service: 11/11/11134 Status: Signed User Experience Architect: Francisco Tejada RN (Registered Nurse) BC x2 collected at [facility] ED in [place]. Francisco Tejada RN 11/11/11134 ranfrancisco wells, Dar Yun MD - 11/11/2011 1:32 AM PDT ED Provider Notes by Dar Collins MD at 11/11/11131 Author: Dar Collins MD Service: (none) Author Type: Physician Filed: 11/11/11 0437 Date of Service: 11/11/11 0132 Status: Signed User Experience Architect: Dar Collins MD (Physician) [facility] Department of Emergency Medicine Pertinent History and Concerns: bipolar ptsd, meth, used yesterday, tachy 143 -170, wide qr s, 12 ativan total, hr 92, 105/66, cxr normal, urine normal, wbc 20k na 119, cpk 325, trop . 16, myoglobin 306, ckmb elevated. had bicarb, tox: meth thc, ekg similar (11/10/11 2334 : ARNOLDO VILLARREAL) History of Present Illness Patient Identification Luz Maria Lockwood is a 56 y.o. female. Patient information was obtained from patient. History/Exam limitations: none. Patient presented to the Emergency Department by: [place] [facility] Chief Complaint Chief Complaint Patient presents with Altered Mental Status Pt seen at [facility] ED for Tremors, hypokalemia, elevated troponin, and elevated whi te blood cell count Tachycardia Tremors 1:32 AM. The patient complains of AMS. Onset of symptoms was today, with a constant cours e since that time. The symptoms are described to be of moderate severity. The patient also complains of tachycardia. There are no exacerbating or alleviating factors. The pt relate s she snorted meth today, four hours ago. The pt was seen at [facility] in [facility] for convulsions. The pt was transported to [facility] by ambulance and diagnosed with p aranoid schizophrenia and bipolar disorder. The pt denies h/o tremors. PCP: PER PT NONE Past Medical History Diagnosis Date Disassociation disorder Schizophrenia Seizures Bipolar disorder Suicidal ideation Past Surgical History Procedure Date Appendectomy Back surgery Neck surgery Hysterectomy Tubal ligation Prior to Admission medications Not on File Allergies Allergen Reactions Other Other (See Comments) Pt states she is allergic to a psych med which she cannot remember. History Social History Marital Status: Single Spouse Name: N/A Number of Children: N/A Years of Education: N/A Occupational History Not on file. Social History Main Topics Smoking status: Current Everyday Smoker Smokeless tobacco: Never Used Alcohol Use: No Drug Use: Yes Special: Methamphetamines Sexually Active: Other Topics Concern Not on file Social History Narrative No narrative on file History reviewed. No pertinent family history. Review of Systems Constitutional: Negative for fever, chills Eyes: Negative for vision changes Nose: Negative for congestion, nosebleeds Throat: Negative for sore throat CV/Resp: Negative for chest pain, rhrnlrbky-wr-fwqser, cough Positive for tachycardia GI: Negative for abdominal pain, nausea, vomiting, or diarrhea : Negative for urinary problems Musculoskeletal: Negative for back pain, joint pain Skin: Negative for rash Neuro/Psych: Negative for headache Positive for AMS Endo/heme/Lymph: Negative for swollen lymph nodes, easy bruising All other systems reviewed and negative except as noted. Physical Exam ED Triage Vitals Enc Vitals Group BP 11/11/11131 133/67 mmHg Heart Rate 11/11/11131 109 Resp 11/11/11131 19 Temp 11/11/11131 97.6 F (36.4 C) Temp src -- SpO2 11/11/11131 96 % Weight 11/11/11131 108.863 kg (240 lb) Height 11/11/11131 1.753 m (5' 9") Head Cir -- Peak Flow -- Pain Score 11/11/11131 Three Pain Loc -- Pain Edu? -- Excl. in GC? -- Vitals: Tachycardic, otherwise normal Pulse Oximetry interpretation: Normal General: Alert, cooperating, no distress, tremors noted Eyes: Normal inspection, pupils equal and round, non-icteric ENT: Ears normal Nose normal Pharynx normal Neck: Normal inspection Supple Cardiovascular: Rate and rhythm normal No murmurs Respiratory: Breath sounds normal bilaterally, no rales, wheezing, or rhonchi Abdomen: Soft, non-tender, non-distended No guarding or rebound Back: Normal inspection Extremities: No edema to the lower extremities Skin: Color normal Warm and dry No rash Neuro: No gross motor deficit No gross sensory deficit Medical Decision Making and Emergency Department Course ED Department Course Pt presents to the ED with c/o AMS and tachycardia. I have discussed the differential diag noses with the patient. These diagnoses include methamphetamine overdose, dehydration, vomi ting, possible lab error, and non ST elevation [place]. I will order tests to rule out these klaus gnoses. 2:11 AM. Pt recheck: pt is stable. 2:22 AM. Per RN the pt's O2 saturation is 61%. Cardiac panel reveals elevated WBC, neutro phils, neutrophils absolute, monocytes absolute, CPK, MMB, and hyperglycemia. Low RBC, HGB, HCT, sodium, chloride, calcium, albumin, and alk phos also noted, otherwise unremarkable. Troponin is elevated, 0.48. 2:45 AM. Pt recheck: pt feels better. 2:49 AM. Will admit the pt into the hospital. 3:17 AM. Discussed the case with Dr. Singleton (hospitalist) who will see the pt in the ED. Pr imarily she has a meth overdose with troponin elevation. Records Reviewed Nursing notes. No previous [facility] ED visits for review in [facility]. The pt has had back surgery x3 and a cholecystectomy. Laboratory Evaluation Results Procedure Component Value Ref Range Date/Time [facility] Cardiac Panel ([facility] Only) [[id number]] (Abnormal) Collected:11/11/11143 Order Status:Completed Updated:11/11/11221 WBC 17.0 (H) 3.8 - 11.0 K/uL RBC 3.69 (L) 3.70 - 5.10 M/uL HGB 11.2 (L) 11.3 - 15.5 g/dL HCT 33.1 (L) 34.0 - 46.0 % MCV 89.7 80.0 - 100.0 fl MCH 30.4 27.0 - 34.0 pg MCHC 33.9 32.0 - 35.5 g/dL RDW SD 41.1 37 - 53 fl PLT 318 150 - 400 K/uL MPV 7.3 fl DIFF TYPE AUTOMATED NEUTROPHILS 77.1 (H) 40 - 75 % LYMPHOCYTES 15.6 15 - 48 % MONOCYTES 6.9 0 - 12 % EOSINOPHILS 0.1 0 - 7 % BASOPHILS 0.3 0 - 2 % NEUTROPHILS ABS 13.1 (H) 1.9 - 7.4 K/uL LYMPHOCYTES ABS 2.7 1.0 - 3.9 K/uL MONOCYTES ABS 1.2 (H) 0 - 0.8 K/uL EOSINOPHILS ABS 0.0 0 - 0.5 K/uL BASOPHILS ABS 0.1 0 - 0.1 K/uL SODIUM 127 (L) 135 - 143 mmol/L POTASSIUM 4.4 3.5 - 4.9 mmol/L CHLORIDE 91 (L) 99 - 109 mmol/L CO2 25 23 - 32 mmol/L ANION GAP AGAP 15 5 - 20 mmol/L GLUCOSE 100 (H) 65 - 99 mg/dL BUN 9 8 - 25 mg/dL CREATININE 0.71 0.50 - 1.00 mg/dL BUN/CREAT 13 CALCIUM 8.4 (L) 8.5 - 10.2 mg/dL TOTAL PROTEIN 6.8 6.3 - 8.2 g/dL Albumin 3.4 (L) 3.6 - 5.0 g/dL GLOBULIN 3.4 1.3 - 4.9 g/dL A/G 1.0 1.0 - 2.4 TBIL 0.4 0.1 - 1.5 mg/dL ALK PHOS 26 (L) 35 - 115 U/L AST 29 10 - 45 U/L ALT 20 10 - 65 U/L EGFR >60 >60 mL/min/1.73m2 CPK 573 (H) 30 - 240 U/L TROPONIN I 0.48 (H) 0.00 - 0.10 ng/mL INR 1.1 0.9 - 3.5 APTT 28 23 - 32 seconds MMB 13.6 (H) 0.5 - 3.6 ng/mL CK-MB Index 2.4 I personally reviewed the lab results and they have been posted to the chart. Pertinent po sitive and negative findings have been addressed appropriately. Radiology and EKG Evaluation Imaging Results None EKG from 2:42: Sinus tachycardia at 101 bpm. VA, QRS, QT, and axis are normal. No ST segmen t elevations or depression. No significant Q waves. Good R wave progression through the prec ordial leads. No acute ischemia. This study has been independently viewed by me, Dar colon MD. ED Diagnoses Final diagnoses Methamphetamine abuse acute NSTEMI (non-ST elevated myocardial infarction) Hyponatremia resolved Disposition: ED Disposition Admit/Observation Bed request special needs: None Diagnosis?: methamphetamine abuse acute, NSTEMI, hyponatremia resolved. Follow-up Information None Discharge Medications: New Prescriptions No new medications Additional Documentation Procedures Attending Note: Documentation assistance provided by Moreno Ko (Scribe). Information recorded by the scribe has been reviewed and validated by me. I ag ree with its contents. MD Dar Marie MD 11/11/11 0437 onversio n Transaction, Provider Unknown - 11/11/2011 1:29 AM PDTFormatting of this note might be di fferent from the original. ED Notes by Eli To RN at 11/11/11128 Author: Eli To RN Service: (none) Author Type: Registered Nurse Filed: 11/11/11128 Date of Service: 11/11/11128 Status: Signed User Experience Architect: Eli To RN (Registered Nurse) Bed:13
Expected date:
Expected time:
Means of arrival:
Comments:
[facility] [place] Transaction, Provider Unknown - 11/11/2011 12:38 AM PDT ED Notes by Eli To RN at 11/11/1137 Author: Eli To RN Service: (none) Author Type: Registered Nurse Filed: 11/11/1142 Date of Service: 11/11/1137 Status: Signed User Experience Architect: Eli To RN (Registered Nurse) Report from Heather at [facility]. Pt in a custodial. Did meth yesterday. EMS called fo r seizure like activity. Pt vomited in the back of ambulance. Zofran 4mg given. Pt vomited 3 00ml more on arrival to ED. Ativan 14mg given total throughout visit. The last dose being gi medhat at 2358. 1 amp sodium bicarb given. 2L NS. Critical value relayed on phone, Magnesium 0. 8. Informed dr collins and francisco RN of findings.WBC 20.2, NA+ 119. Pt very diaphoretic and tachypneic on arrival to EMS. Pt has multiple pill packages and unsigned checks with her , 1 set of dirty clothes. Eli To RN 11/11/113 docume nted in this encounter Plan of [...] + documented in this encounter Results NM Myocardial Perfusion Mult SPECT (11/12/2011 9:59 AM PDT) + + | Specimen | + + | | + + + + + | Narrative | Performed At | + + + | [facility] [place] MYOCARDIAL PERFUSION SPECT - STRESS AND REST [...] | Procedure Note | + -+ | Tha, Rad Conversion - 11/04/2018 6:12 AM [facility] MYOCARDIAL | | PERFUSION SPECT - [...] + | This procedure was resulted in [place] (the cardiology system). Please | | | see the Media tab in Chart Review to see the result for this | | | procedure. | | + + + + + | Procedure Note | + + | Ever Almazan Conversion - 11/04/2018 6:12 AM PDT This procedure was resulted in [place] | | (the cardiology system). Please seethe Media tab in Chart Review to see the result for | | this procedure. | + + XR Chest 1 Vw (11/11/2011 5:50 AM PDT) + + | Specimen | + + | | + + + + + | Narrative | Performed At | + + + | [facility] XR CHEST 1 VIEW 11/11/2011 5:40 [...] - 11/04/2018 6:12 AM PDT [facility] S[facility] FABIÁNXR CHEST 1 | | VIEW11/11/2011 5:40 AM [...] | + + | Bipolar disorder, unspecified ([facility]) Bipolar disorder, unspecified | + + | Hyposmolality and/or hyponatremia | + + | Leucocytosis Leukocytosis, unspecified | + + | Paranoid schizophrenia, chronic condition (HCC) Paranoid schizophrenia, chronic | | condition | + + | Seizure disorder (HCC) Unspecified epilepsy without mention of intractable epilepsy | + + documented in this encounter
--- OUTSIDE RECORDS SUMMARY | ~2019-12-19 | XMS | Encounter Summary ---
Demographics + + + | Address | [address] | | | [place] [address] | + + + | Home Phone | | + + + | Preferred Language | Unknown | + + + | Marital Status | | + + + | Denominational Affiliation | 1013 | + + + | Race | White | + + + | Ethnic Group | Not or | + + + Author + + + | Author | [facility] | | | and [place] | + + + | Organization | [facility] | | | [...] Team Providers + +------+ + | Care Wine Pasteurizer Name | Role | Phone | + [...] 2017 | | MED CTR EMERGENCY | [place] [address] | acute, generalized | | | | CENTER [address] | [place], [place] | (Primary Dx); | | | | [place], [place] | [address] | Diverticulitis of | | | | [address] | | large intestine | | | | [phone] | | without perforation | | | [...] sent through Care Everywhere.DIVERTICULITIS, DISCHARGE INSTRUCTIONS FOR (UZBEK)documented in this encounter Medications at Time of [...] be di fferent from the original. [facility]ona Emergency Department Encounter Note [address] [place] [id number] PCP:Abimael Devlin MD ED14 CHIEF COMPLAINT: Chief [...] this before. She sees a doctor in [facility] and was told to come here because [...] on file Social History Narrative Lives in [place] in apartment. REVIEW OF SYSTEMS Review of [...] were reviewed along with EMS notes and alf record s if applicable. Medication and Allergy lists reviewed in [facility]. Nurses note and old record s were reviewed if available within [facility] ER course 16:42 - Patient care [...] Medicine Contact information: [address] [place] [phone] New Prescriptions AMOXICILLIN-CLAVULANATE (AUGMENTIN) 875-125 MG PER TABLET Take 1 tablet by mouth 2 time s daily for 7 days. OXYCODONE-ACETAMINOPHEN (PERCOCET) 5-325 MG PER TABLET Take 1 tablet by mouth every 6 h ours as needed. PROMETHAZINE (PHENERGAN) 25 MG TABLET Take 1 tablet by mouth every 4 hours as needed. Discharge References/Attachments DIVERTICULITIS, DISCHARGE INSTRUCTIONS FOR (UZBEK) Administrations This Visit HYDROmorphone (DILAUDID) injection 1 [...] this chart may have been created with [employer] voice recognition software. Occasi onal wrong-word or sound-alike substitutions may have occurred due to the inherent gutierres itations of voice recognition software. Please read the chart carefully and recognize, using context, where these substitutions have occurred. Santos Hong MD 08/23/16 5404 documented in this e ncounter Miscellaneous Notes [...] [address] | [place] | [phone] | | [facility] | | [address] | | | - LABORATORY | | [...] [address] | [place] | [phone] | | [facility] | | [address] | | | - LABORATORY | | [...] [address] | [place] | [phone] | | [facility] | | [address] | | | - LABORATORY | | [...] + | [address] | [address] | [place] | [phone] | | [facility] | | [address] | | | - LABORATORY | | [...] + | [facility] | [address] | [place] | [phone] | | [facility] | | [address] | | | - LABORATORY | | [...] | non- | FILTRATION | mL/min/1.73m2 | [facility] | | | [place] | RATE,ESTIMATED | | MEDICAL | | | | mL/min/1.96m6Typd than | | CENTER - | | [...] | | | | | mg/dL | [facility] | | | | | | [...] [address] | [place] | [phone] | | [facility] | | [address] | | | - LABORATORY | | [...] TRAN. | [address] | [place] | [phone] | | [facility] | | [address] | | | - LABORATORY | | [...]
--- OUTSIDE RECORDS SUMMARY | ~2019-12-19 | XMS | Encounter Summary ---
Demographics + + + | Address | [address] | | | [place] [address] | + + + | Home Phone [...] | + + +---------+ + | Shasta Yeepz | ECON | Unknown | | + + +---------+ + Care Team Providers + +------+ + | Care Director Integrated Name | Role | Phone | [...] | | | | | | [place] | | | | | | | COLONOSCOPY | | | | | | | FLX DX | | | | | | | W/COLLJ SPEC | | | | | | | WHEN PFRMD | | | | | | | [place] | | | | | | | COLONOSCOPY | | | | | | | W/BIOPSY | | | | | | | SINGLE/MULTI | | | | | | | PLE [place] | | | | | | | COLSC FLX | | | | | | | W/RMVL OF | | | | | | | TUMOR POLYP | | | | | | | LESION SNARE | | | | | | | TQ [place] | | | | | | | [...] + + + + | 10/14/ | Anesthesia | [facility] | Erasmo Herrera | | | 2017 | Event | MED CTR MP INTRA OP | Rico SOLIZ MD [address] | | | | | [address] | [facility] | | | | | [place] | [place] [address] | | | | | [address] | [phone] | | | | | [phone] | | | +--------+ + + + + Anesthesia Record + + + + + | Procedure Name | Responsible | Anesthesia Start | Anesthesia Stop Time | | | Anesthesiologist | Time | | + + + + + | COLONOSCOPY (N/A | Erasmo Herrera | 10/14/16 1140 | 10/14/16 1211 | | Rectum) | II, MD | | | + + + + + +----+---+ + + | Da | T | Event | Comment | | te | i | | | | | m | | | | | e | | | +----+---+ + + | 08 | 1 | | | | /0 | 1 | | | | 3/ | 0 | | | | 20 | 2 | | | | 17 | | | | +----+---+ + + | | 1 | An Checkout | Pre-use anesthesia machine/equipment checkout. | | | 1 | | | | | 2 | | | | | 7 | | | +----+---+ + + | | 1 | An Start | Reassessment prior to anesthesia induction/procedure. | | | 1 | | | | | 4 | | | | | 0 | | | +----+---+ + + | | 1 | AN | Per surgeon request | | | 1 | Antibiotic | | | | 4 | declined | | | | 3 | | | +----+---+ + + | | 1 | First | | | | 1 | Inc/Proc St | | | | 4 | | | | | 6 | | | +----+---+ + + | | 1 | an stop | | | | 2 | data | | | | 0 | | | | | 6 | | | +----+---+ + + | | 1 | An Stop | Patient handed off to recovery nurse. | | | 1 | | | | | 1 | | | +----+---+ + + +------+ | Meds | +------+ + + + | Name | Total | + + + | propofol (DIPRIVAN) injection | 502.92 mg | | (bolus) (20 mL) | | + + + | lidocaine 2% | 100 mg | + + + | LR (Infusion) | 250 mL | + + + + + | Name | + + | O2 Flow Rate (L/Min) | + + + + | No blood administrations on file. | + + +--------+ + + + | Type | Details | Placement | Removal | +--------+ + + + | Brace/ | 06/05/18 (Removed/Completed by | 12/20/14 1022 by | 06/05/18 1643 by | | Orthot | utility); 1643 (Removed/Completed | | User Epic | | ic/Ort | by utility) | | | | hosis | | | | +--------+ + + + documented in this encounter Social History + + + +--------+ + [...] + + documented as of this encounter OR Notes Anesthesia Postprocedure Evaluation - Erasmo Herrera II, MD - 10/14/2016 1:40 PM PDTF ormatting of this note might be different from the original. ANESTHESIA POSTANESTHESIA EVALUATION [facility] Carmona 61 y.o. female 1955 [id number] Procedure(s) COLONOSCOPY (N/A Rectum) Cooperates? Yes Mental Status Performs simple tasks. Respiratory Satisfactory - Airway patent (self maintained). Cardiovascular Satisfactory - Blood pressure and heart rate acceptable Temperature Satisfactory Pain Satisfactory N/V Control Satisfactory Hydration Satisfactory - No signs of dehydration Complications None apparent Vitals: 10/14/16 1230 10/14/16 1245 10/14/16 1300 BP: 131/86 137/75 143/87 Pulse: 92 90 84 Temp: Resp: SpO2: 96% 95% 98% Electronically signed by Erasmo Herrera II, MD 10/14/2016 13:40 [facility] nesthesia Preprocedure Evaluation - Erasmo Herrera II, MD - 10/14/2016 11:00 AM PDT ANESTHESIA PREANESTHESIA EVALUATION [facility] Maria Carmona 61 y.o. female 1955 [id number] Procedure(s): COLONOSCOPY (N/A Rectum) Review of Systems / Med History Anesthesia History (+) PONV Cardiovascular (+) hypertension, past [place] (+) PVD: Pulmonary (+) asthma(+) sleep apnea: Neurology (+) headaches, back pain, chronic pain Psychology (+) depression, substance abuse, bipolar disorder, schizophrenia Endocrine (+) Diabetes:(+) obesity: Other (+) arthritis Physical Exam Airway MP II, TM >3 FB, Mouth opening >2 FB. Neck: full ROM, extends >30 degrees. Jaw protrus ion normal. CV Rhythm regular. Rate normal. Anesthesia Plan ASA 3 Type: TIVA. Induction: Intravenous. Potential problems: None anticipated. Monitors: Standard ASA monitors. Consent statement: . Consenting person understands and agrees to proceed. Electronically Signed by: Erasmo Herrera II, MD ESig date/time: 10/14/2016 11:00 documented in this encounter Plan of Treatment Not on filedocumented as of this encounter Visit Diagnoses Not on filedocumented in this encounter Administered Medications + +---------+ +------+------+------+ | Medication Order | MAR | Action | Dose | Rate | Site | | | Action | Date | | | | + +---------+ +------+------+------+ | lactated ringers (LR) infusion | New Bag | 10/15/19 | | | | | Intravenous, CONTINUOUS PRN, | | 17 11:43 | | | | | Starting Naty 10/14/16 at 1143, | | AM PDT | | | | | Anesthesia Intra-op | | | | | | + +---------+ +------+------+------+ +---+---+ | | | +---+---+ + +-------+ +--------+---+---+ | lidocaine (PF) 2% injection | Given | 10/15/19 | 100 mg | | | | Intravenous, PRN, Starting Naty | | 17 11:43 | | | | | 10/14/16 at 1143, Anesthesia | | AM PDT | | | | | Intra-op | | | | | | + +-------+ +--------+---+---+ +---+---+ | | | +---+---+ + +---------+ + +--------+---+ | propofol (DIPRIVAN) injection | New Bag | 10/15/19 | 200 | 137.2 | | | Intravenous, CONTINUOUS PRN, | | 17 11:43 | mcg/kg/m | mL/hr | | | Starting [facility] 10/14/16 at 1143, | | AM PDT | in | | | | Anesthesia Intra-op | | | | | | + +---------+ + +--------+---+ +---+---+ | | | +---+---+ documented in this encounter"
--- OUTSIDE RECORDS SUMMARY | ~2019-12-19 | XMS | Encounter Summary ---
Demographics + + + | Address | [address] | | | [place] [address] | + + + | Home Phone [...] Team Providers + +------+ + | Care Processor Inspector Name | Role | Phone | + +------+ + | Abimael Devlin MD | PCP | | + +------+ + Encounter Details +--------+ + + + + | Date | Type | Department | Care Team | Description | +--------+ + + + + | 10/17/ | Hospital | [facility] | Andre Caballero | Right hip pain | | 2018 | Encounter | MED CTR YAZMIN Serrato MD [address] | | | | | [address] [place] | [place], [place] | | | | | [place], [place] | [address] | | | | | [address] | | | | | | [phone] | | | +--------+ + + + [...]
--- OUTSIDE RECORDS SUMMARY | ~2019-12-19 | XMS | Encounter Summary ---
Demographics + + + | Address | [address] | | | [place] [address] | + + + | Home Phone | | + + + | Preferred Language | Unknown | + + + | Marital Status | | + + + | Christian Affiliation | 1013 | + + + | Race | White | + + + | Ethnic Group | Not or | + + + Author + + + | Author | [facility] | | | and [place] | + + + | Organization | [facility] | | [...] Team Providers + +------+ + | Care Hand Deicer Element Winder Name | Role | Phone | + +------+ + | Abimael Devlin MD | PCP | | + +------+ + Reason for Visit +--------+--------+ + | Reason | Onset | Comments | | | Date | | +--------+--------+ + | Other | 01/05/ | | | | 2015 | | +--------+--------+ + Encounter Details +--------+ + + + + | Date | Type | Department | Care Team | Description | +--------+ + + + + | 01/05/ | Telephone | [facility] [place] | [place], | Other | | 2015 | | PHYSIATRY [address] | MD [address] | | | | | [address] | [place], [place] | | | | | [place], [place] | [address] | | | | | [address] | | | | | | [phone] | | | +--------+ + + + [...] Varela RN - 01/07/2016 9:19 AM PDTReturned [employer]'s phone call and she states the Lyrica [...] was Wicho Starkey MD. Radha was unavailable. LVM requesting a call back. elephone Encounter - Emilia Faust - 01/06/2016 10:56 [facility]. Please call her at [phone] ext [phone]. Please advise documented in t his encounter Plan of Treatment Not on filedocumented as of this encounter Visit Diagnoses Not on filedocumented in this encounter
--- OUTSIDE RECORDS SUMMARY | ~2019-12-19 | XMS | Encounter Summary ---
Demographics + + + | Address | [address] | | | [place] [address] | + + + | Home Phone [...] | Author | [facility] | | | and [place] | + + + | Organization | [facility] | | [...] Team Providers + +------+ + | Care System Controller Name | Role | Phone | [...] Right hip | Lisa, | [address] | | | | | pain | Paco T, MD | [place], | | | | | Procedures | [address] | [place] | | | | | [place] Asp | [place] | [address] | | | | | and/or Inj | [place], [place] | Phone: | | | | | Major Joint | [address] | [phone] | | | | | Right CHG | Phone: | Fax: | | | | | FLUOROSCOPIC | [phone] | [phone] | | | | | GUIDANCE | Fax: | | | | | | NEEDLE | [phone] | | | | | | PLACEMENT | | | | | | | ADD ON AL | | | | | | [...] Right hip | Brittanyerg, | [address] | | | | | pain | Paco Cox MD | [place], | | | | | Bursitis of | [address] | [place] | | | | | right hip | [place] | [address] | | | | | Procedures | [place] | Phone: | | | | | [place] | [address] | [phone] | | | | | ARTHROCENTES | Phone: | Fax: | | | | | IS | [phone] | [phone] | | | | | ASPIR&/INJ | Fax: | | | | | | MAJOR | [phone] | | | | | | JT/BURSA W/O | | | | | | | US [place] | | | | | | [...] + + | 12/26/ | Hospital | [facility] | Madeleine, | Right hip pain | | 2018 | Encounter | MED CTR XRAY [address] | CHRISTIANA Kuhn [address] | | | | | [place] | [facility] | | | | | [place] [address] | [place] [address] | | | | | [phone] | [phone] | | | | | | | | | | | | Silica Filter OperatorTono | | | | | | [place] [...]
--- OUTSIDE RECORDS SUMMARY | ~2019-12-19 | XMS | Encounter Summary ---
Demographics + + + | Address | [address] | | | [place] [address] | + + + | Home Phone [...] | Author | [facility] | | | and [place] | + + + | Organization | [facility] | | [...] Team Providers + +------+ + | Care Gluing Machine Feeder Name | Role | Phone [...] | | | | | | [place] | | | | | | | COLONOSCOPY | | | | | | | FLX DX | | | | | | | W/COLLJ SPEC | | | | | | | WHEN PFRMD | | | | | | | [place] | | | | | | | COLONOSCOPY | | | | | | | W/BIOPSY | | | | | | | SINGLE/MULTI | | | | | | | PLE [place] | | | | | | | COLSC FLX | | | | | | | W/RMVL OF | | | | | | | TUMOR POLYP | | | | | | | LESION SNARE | | | | | | | TQ [place] | | | | | | | [...] + + | 10/14/ | Anesthesia | [facility] | Erasmo Herrera | | | 2017 | Event | MED CTR MP INTRA OP | Rico SOLIZ MD [address] | | | | | [address] | [facility] | | | | | [place] | [place] [address] | | | | | [address] | [phone] | | | | | [phone] | | | +--------+ + + + [...] Luz Maria Carmona 61 y.o. female 1955 [id number] Procedure(s) COLONOSCOPY (N/A Rectum) Cooperates? Yes Mental [...] Erasmo Herrera II, MD 10/14/2016 13:40 [facility] nesthesia Preprocedure Evaluation - Erasmo Herrera II, MD - 10/14/2016 11:00 AM PDT ANESTHESIA PREANESTHESIA EVALUATION Luz Maria Carmona 61 y.o. female 1955 [id number] Procedure(s): COLONOSCOPY (N/A Rectum) Review of Systems / Med History Anesthesia History (+) PONV Cardiovascular (+) hypertension, past [place] (+) PVD: Pulmonary (+) asthma(+) sleep apnea: [...] mcg/kg/m | mL/hr | | | Starting [facility] 10/14/16 at 1143, | | AM PDT | in | | | | Anesthesia Intra-op | | | | | | + +---------+ + +--------+---+ +---+---+ | | | +---+---+ documented in this encounter"
--- OUTSIDE RECORDS SUMMARY | ~2019-12-19 | XMS | Encounter Summary ---
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 [place] | | | 09/14/ | | [place] | [place] [id number] | | | 2019 | | [address] | [phone] | | | | | [phone] | | | +--------+ + + + [...] + + + | Blood Pressure | 162/95 | 09/15/2019 12:30 AM | | | | | PDT | | + + + + + | Pulse | 87 | 09/15/2019 12:30 AM | | | | | PDT | | + + + + + | Temperature | 36.8 C (98.2 F) | 09/14/2019 10:26 PM | | | | | PDT | | + + + + + | Respiratory Rate | 18 | 09/14/2019 10:26 PM | | | | | PDT | | + + + + + | Oxygen Saturation | 97% | 09/15/2019 12:30 AM | | | | | PDT [...] documented in this encounter Discharge Instructions Instructions Jeff Dangelo MD - 09/15/2019Tegretol 200 mg twice a day This medication may need to be increased Stay hydrated Avoid the heat Follow-up with primary care AttachmentsThe following attachments cannot be sent through Care Everywhere.Headache, Unspe cified (Bahraini)Trigeminal Neuralgia (Bahraini)documented in this encounter Medications at Time of [...] | cyclobenzaprine | | | 0 | / | | | (FLEXERIL) 5 MG | [...] 1 puff by | | 0 | 07/27/19 | | | MCG/ACT inhaler | mouth [...] documented as of this encounter ED Notes Leta Cedeño RN - 09/14/2019 10:27 PM PDTPatient states she has had a five day his tory of intermittent sharp pains going through her left head. States history of migraine, b ut this pain is different. Reports dizziness and occasional nausea. Jeff Sharp MD - 09/14/2019 10:27 PM PDT [facility] Luz Maria Carmona EMERGENCY DEPARTMENT ENCOUNTER NOTE [address] [place] [id number] PCP:Abimael Devlin MD CHIEF COMPLAINT Chief Complaint Patient presents with Headache (Adult - New Onset Or New Symptoms) HPI Luz Maria Carmona is a 64 y.o. female who presents to the emergency department with head ache. This patient has been having sharp intermittent stabbing headache for the past 5 days . She has multiple flareups on a daily basis. It occurs on both sides of her head but most ly on the left. No fever. No cough or cold symptoms. No sinus congestion. She denies any recent head trauma. She does not take any anticoagulants. She does have a history of head aches but she states this is very different from that. Her primary care provider is in [facility]. She lives in [facility]. She prefers to come to the ER here in [facility]. She is accompanied by a friend but she is providing her own history. She took some I mitrex earlier today and it didn't help. No vision changes. 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 cyclobenzaprine (FLEXERIL) 5 MG tablet dicyclomine (BENTYL) [...] comment) Daughter seizures SOCIAL HISTORY Social History Socioeconomic History Marital status: Spouse name: Not on file Number of children: 3 Years of education: GED Highest education level: Not on file Occupational History Comment: Disabled from bipolar Tobacco Use Smoking status: Current Every Day Smoker Packs/day: 0.75 Years: 20.00 Pack years: 15.00 Types: Cigarettes Smokeless tobacco: Never Used Substance and Sexual Activity Alcohol use: Yes Alcohol/week: 0.0 standard drinks Comment: 2 drinks/year Drug use: Yes Frequency: 7.0 times per week Types: Marijuana Comment: Daily to control fibromyalgia and back pain. No current or past history of illi cit drug use. Social History Narrative Lives in [place] in apartment. REVIEW OF SYSTEMS All systems reviewed and found negative except what is in the HPI PHYSICAL EXAM VITAL SIGNS: (initial vital signs):Temp: 36.8 C (98.2 F) Pulse: 89 Resp: 18 SpO2: 98 % BP: 141/86 Body mass index is 37.36 kg/m. Constitutional: Well developed, Well nourished, moderate acute distress, Non-toxic appeara nce. HENT: Normocephalic, Atraumatic, Bilateral external ears normal, Tympanic membranes normal , Mucous membranes are moist, Nasal mucosa is normal. Oropharynx is clear. Eyes: PERRL, EOMI, Conjunctiva normal, No discharge. Palpebral conjunctiva are pink. Neck: Normal range of motion, No tenderness, Supple, No stridor. Respiratory: No respiratory distress, No wheezing Cardiovascular: Normal heart rate, Normal rhythm, No murmurs appreciated. GI: Soft, Non tenderness, No peritoneal signs, No masses Extremities: Warm and well perfused, no edema, no joint swelling or deformity. Good ROM. Back: No CVAT, No tenderness of the thoracic or lumbar spine. Skin: Warm, Dry, No erythema, No induration, No rash. Neurologic: Alert & oriented x 3, No focal motor or sensory deficits. Speech is clear. G ait is normal. RADIOLOGY Noncontrast head CT: 1. Negative for acute intracranial process. No evidence of mass effect, acute hemorrhage or definite acute cortical infarct. 2. Mild senescent changes of the brain, as above. ED COURSE & MEDICAL DECISION MAKING Pertinent Labs & Imaging studies reviewed. (See chart for details) The patient was seen and examined shortly after arriving in the emergency department. Hist ory and physical were obtained, vital signs were noted. I reviewed her history. She has a lot of different pain related complaints. This headache is different than her typical heada ches. She has not had any brain imaging in our system. I ordered an IV. I ordered Benadry l and Reglan as well as some normal saline. There is no rash. There are no infection sympt oms. Head CT is unremarkable. ESR and CRP are normal. Electrolytes are unremarkable. CBC white count mildly elevated at 12.3. H&H are mildly low at 11 and 33. Platelets are corrina l. I added Toradol to the IV medications after the head CT showed no bleed. He has a sharp jabbing intermittent pain. Trial of Tegretol. Last Set of Vital Signs: Temp: 36.8 C (98.2 F) Pulse: 87 Resp: 18 SpO2: 97 % BP: (!) 16 2 FINAL IMPRESSION 1. Sharp headache PLAN Follow-up Information Abimael Devlin MD. Schedule an appointment as soon as possible for a visit in 1 week. Specialty: Family Medicine Contact information: [address] [place] [address] Discharge Medication List as of 09/15/2019 12:37 AM START taking these medications Details carBAMazepine (TEGRETOL XR) 200 mg 12 hr tablet Take 1 tablet by mouth 2 times daily for 30 days.Disp-60 tablet,R-0, Print Jeff Dangelo MD 09/15/19623 documented in this encounter Plan of Treatment + +------+--------+ + + | Name | Type | Priori | Associated Diagnoses | Date/Time | | | | ty | | | + +------+--------+ + + | ED INFORMATION | DONNIE | Routin | | 09/14/2019 9:36 PM | | EXCHANGE | | e | | PDT | + +------+--------+ + + documented as of this encounter Procedures + +--------+ + + + | Procedure Name | Priori | Date/Time | Associated Diagnosis | Comments | | | ty | | | | + +--------+ + + + | SEDIMENTATION RATE | STAT | 09/15/2019 | | Results for this | | | | 12:02 AM | | procedure are in the | | | | PDT | | results section. | + +--------+ + + + | CBC WITH | STAT | 09/15/2019 | | Results for this | | DIFFERENTIAL | | 12:02 AM | | procedure are in the | | | | PDT | | results section. | + +--------+ + + + | C-REACTIVE PROTEIN | STAT | 09/15/2019 | | Results for this | | | | 12:02 AM | | procedure are in the | | | | PDT | | results section. | + +--------+ + + + | BASIC METABOLIC | STAT | 09/15/2019 | | Results for this | | PANEL | | 12:02 AM | | procedure are in the | | | | PDT | | results section. | + +--------+ + + + | CT HEAD WO CONTRAST | STAT | 09/14/2019 | | Results for this | | | | 10:37 PM | | procedure are in the | | | | PDT | | results section. | + +--------+ + + + | ED INFORMATION | Routin | 09/14/2019 | | | | EXCHANGE | e | 9:36 PM | | | | | | PDT | | | + +--------+ + + + +---+--------+ | | | | | Proced | | | ure | | | Note - | | | Tha, | | | Lab In | | | | | | Hlseve | | | n - | | | 07/03/ | | | 2020 | | | 9:37 | | | PM PDT | | | | | | [...] | | | ON?07/ | | | [birth year]/202 | | | 0 | | | 21:35? | | | [place] | | | N, | | | CANELO | | | H | | | L?MRN: | | | | | | [id number] | | | [id number] | | | riteri | | | [...] | | | St. | | | [place] | | | y | | | [...] Flags | | | | | | [place] | | | ED | | | Dispar | | | ity | | | Measur | | | e - | | | [place] | | | has | | | [...] | | | s. | | | [place] | | | | | | Health [...] | | | By: | | | [place] | | | | | | Health [...] | | | Center | | | 1 0 | | | [facility] | [place] | | | y | | | Hospit | | | al 4 0 | | | Total | | | 5 0 | | | Note: | | [...] | | int | | | [place] 3, | | | 2020 | | | [facility] | | | ence | | | [facility] | | [facility] [place] | | | [place] | | | [facility] | | | ncy | | | pain | | | in | | | head | | | Nov | | | 19, | | | 2019 | | | [facility] | [facility] | | | [place] | | | y H. | | [...] | | | St. | | | [place] | | | y H. | | [...] | | | St. | | | [place] | | | y H. | | [...] | | | St. | | | [place] | | | y H. | | [...] | | | St. | | | [place] | | | y H. | | [...] | | | St. | | | [place] | | | y H. | | [...] | | | otify/ | | | [id number] | | | [phone] | | | [id number] | | | [phone] | | | [id number] | | | [id number] | | | | | | PLEASE [...] | +---+--------+ documented in this encounter Results CBC with Differential (09/15/2019 12:02 AM PDT) + + + + + + | Component | Value | Ref Range | Performed | Pathologist | | | | | At | Signature | + + + + + + | White Blood | 12.3 (H) | 4.0 - 11.0 K/uL | [facility] | | | Cells | | | [facility] | | | | | | [facility] | | | | | | CENTER - | | | | | | LABORATORY | | + + + + + + | Red Blood | 3.72 | 3.70 - 5.20 | [facility] | | | Cells | | M/uL | [facility] | | | | | | [facility]ICAL | | | | | | CENTER - | | | | | | LABORATORY | | + + + + + + | Hemoglobin | 11.1 (L) | 11.5 - 16.0 | [facility] | | | | | g/dL | [facility] | | | | | | MEDICAL | | | | | | CENTER - | | | | | | LABORATORY | | + + + + + + | Hematocrit | 33.1 (L) | 34.0 - 47.0 % | [facility] | | | | | | [facility] | | | | | | [facility] | | | | | | CENTER - | | | | | | LABORATORY | | + + + + + + | MCV | 89.0 | 83.0 - 101.0 fL | [facility] | | | | | | [facility] | | | | | | [facility] | | | | | | CENTER - | | | | | | LABORATORY | | + + + + + + | MCH | 29.8 | 28.0 - 35.0 pg | [facility] | | | | | | [facility] | | | | | | [facility] | | | | | | CENTER - | | | | | | LABORATORY | | + + + + + + | MCHC | 33.5 | 32.0 - 36.0 | [facility] | | | | | g/dL | [facility] | | | | | | MEDICAL | | | | | | CENTER - | | | | | | LABORATORY | | + + + + + + | RDW-CV | 13.1 | <15.0 % | [facility] | | | | | | [facility] | | | | | | MEDICAL | | | | | | CENTER - | | | | | | LABORATORY | | + + + + + + | RDW-SD | 42.8 | 35.1 - 46.3 fL | [facility] | | | | | | [facility] | | | | | | MEDICAL | | | | | | CENTER - | | | | | | LABORATORY | | + + + + + + | Platelet | 280 | 140 - 440 K/uL | [facility] | | | Count | | | [facility] | | | | | | MEDICAL | | | | | | CENTER - | | | | | | LABORATORY | | + + + + + + | MPV | 8.8 | 6.5 - 12.4 fL | [facility] | | | | | | [facility] | | | | | | MEDICAL | | | | | | CENTER - | | | | | | LABORATORY | | + + + + + + | % | 58.5 | 45.0 - 82.0 % | [facility] | | | Neutrophils | | | [facility] | | | | | | MEDICAL | | | | | | CENTER - | | | | | | LABORATORY | | + + + + + + | % | 31.4 | 20.0 - 45.0 % | [facility] | | | Lymphocytes | | | [facility] | | | | | | MEDICAL | | | | | | CENTER - | | | | | | LABORATORY | | + + + + + + | % Monocytes | 7.1 | 4.0 - 12.0 % | [facility] | | | | | | [facility] | | | | | | MEDICAL | | | | | | CENTER - | | | | | | LABORATORY | | + + + + + + | % | 1.7 | 0.0 - 5.0 % | [facility] | | | Eosinophils | | | [facility] | | | | | | MEDICAL | | | | | | CENTER - | | | | | | LABORATORY | | + + + + + + | % Basophils | 0.6 | 0.0 - 1.0 % | [facility] | | | | | | [facility] | | | | | | MEDICAL | | | | | | CENTER - | | | | | | LABORATORY | | + + + + + + | % Immature | 0.7 (H)Comment: | 0.0 - 0.4 % | [facility] | | | Granulocyte | Preliminary studies have | | [facility] | | | s | indicated the IG% | | MEDICAL | | | | and/or IG# show promise | | CENTER - | | | | as an early indicator | | LABORATORY | | | | for infection. | | | | + + + + + + | Absolute | 7.21 | 1.80 - 8.50 | [facility] | | | Neutrophils | | K/uL | [facility] | | | | | | MEDICAL | | | | | | CENTER - | | | | | | LABORATORY | | + + + + + + | Absolute | 3.87 (H) | 0.60 - 3.20 | [facility] | | | Lymphocytes | | K/uL | [facility] | | | | | | MEDICAL | | | | | | CENTER - | | | | | | LABORATORY | | + + + + + + | Absolute | 0.87 | 0.00 - 1.00 | [facility] | | | Monocytes | | K/uL | [facility] | | | | | | MEDICAL | | | | | | CENTER - | | | | | | LABORATORY | | + + + + + + | Absolute | 0.21 | 0.00 - 0.40 | [facility] | | | Eosinophils | | K/uL | [facility] | | | | | | MEDICAL | | | | | | CENTER - | | | | | | LABORATORY | | + + + + + + | Absolute | 0.08 | 0.00 - 0.10 | [facility] | | | Basophils | | K/uL | [facility] | | | | | | MEDICAL | | | | | | CENTER - | | | | | | LABORATORY | | + + + + + + | Absolute | 0.09 (H) | 0.00 - 0.03 | [facility] | | | Immature | | K/uL | [facility] | | | Granulocyte | | | MEDICAL | | | s | | | CENTER - | | | | | | LABORATORY | | + + + + + + | % nRBC | 0 | 0 - 2 per 100 | [facility] | | | | | WBCs | [facility] | | | | | | MEDICAL | | | | | | CENTER - | | | | | | LABORATORY | | + + + + + + | Absolute | 0.00 | 0.00 - 0.01 | [facility] | | | nRBC | | K/uL | [facility] | | | | | | MEDICAL [...] [address] | [place] | [phone] | | [facility] | | [address] | | | - LABORATORY | | | | + + + + + Basic Metabolic Panel (09/15/2019 12:02 AM PDT) + + + + + + | Component | Value | Ref Range | Performed | Pathologist | | | | | At | Signature | + + + + + + | Na | 131 (L) | 136 - 145 | [facility] | | | | | mmol/L | [facility] | | | | | | MEDICAL | | | | | | CENTER - | | | | | | LABORATORY | | + + + + + + | K | 3.9 | 3.4 - 5.1 | [facility] | | | | | mmol/L | [facility] | | | | | | MEDICAL | | | | | | CENTER - | | | | | | LABORATORY | | + + + + + + | Cl | 100 | 98 - 107 mmol/L | [facility] | | | | | | [facility] | | | | | | MEDICAL | | | | | | CENTER - | | | | | | LABORATORY | | + + + + + + | CO2 | 26 | 20 - 31 mmol/L | [facility] | | | | | | [facility] | | | | | | MEDICAL | | | | | | CENTER - | | | | | | LABORATORY | | + + + + + + | Anion Gap | 5 | 3 - 16 mmol/L | [facility] | | | | | | [facility] | | | | | | MEDICAL | | | | | | CENTER - | | | | | | LABORATORY | | + + + + + + | Glucose | 120 (H) | 60 - 106 mg/dL | [facility] | | | | | | [facility] | | | | | | MEDICAL | | | | | | CENTER - | | | | | | LABORATORY | | + + + + + + | BUN | 20 | 9 - 23 mg/dL | [facility] | | | | | | [facility] | | | | | | MEDICAL | | | | | | CENTER - | | | | | | LABORATORY | | + + + + + + | Creatinine | 0.77 | 0.55 - 1.02 | [facility] | | | | | mg/dL | [facility] | | | | | | MEDICAL | | | | | | CENTER - | | | | | | LABORATORY | | + + + + + + | eGFR, | >60Comment: GLOMERULAR | >=60 | [facility] | | | non- | FILTRATION | mL/min/1.73m2 | [facility] | | | [place] | RATE,ESTIMATED | | MEDICAL | | | | mL/min/1.04t1Itgx than | | CENTER - | | [...] + + + + | Calcium | 9.2 | 8.7 - 10.4 | [facility] | | | | | mg/dL | [facility] | | | | | | MEDICAL | | | | | | CENTER - | | | | | | LABORATORY | | + + + + + + | BUN/Creatin | 26.0 | | [facility] | | | ine Ratio | | | [facility] | | | | | | MEDICAL [...] [address] | [place] | [phone] | | [facility] | | [address] | | | - LABORATORY | | | | + + + + + C-Reactive Protein (09/15/2019 12:02 AM PDT) + +-------+ + + + | Component | Value | Ref Range | Performed | Pathologist | | | | | At | Signature | + +-------+ + + + | CRP | 9.50 | <10.00 mg/L | [facility] | | | | | | [facility] | | | | | | MEDICAL [...] + | [facility] | [address] | [place] | [phone] | | [facility] | | [address] | | | - LABORATORY | | | | + + + + + Sedimentation Rate (09/15/2019 12:02 AM PDT) + +-------+ + + + | Component | Value | Ref Range | Performed | Pathologist | | | | | At | Signature | + +-------+ + + + | Erythrocyte | 16 | <30 mm/hr | [facility] | | | | | | [facility] | | | Sedimentati | | | MEDICAL | | | on Rate | | | CENTER - | | | | | | LABORATORY | | + +-------+ + + + + + | Specimen | + + | Blood | + + + + + + + | Performing | Address | City/State/Zipcode | Phone Number | | Organization | | | | + + + + + | [facility] | [address] | [place], [place] | [phone] | | [facility] | | [address] | | | - LABORATORY | | | | + + + + + CT Head wo Contrast (09/14/2019 10:37 PM PDT) + + | Specimen | + + | | + + + + + | Impressions | Performed At | + + + | 1. Negative for acute intracranial process. No evidence of mass | [facility] | | effect, acute hemorrhage or definite acute cortical infarct. 2. Mild | | | senescent changes of the brain, as above. A preliminary | | | report was sent without significant discrepancy. Electronically | | | signed by Dominic Arvizu MD 09/15/2019 8:36 AM | | + + + + + + | Narrative | Performed At | + + + | CT HEAD WITHOUT CONTRAST CLINICAL INFORMATION: Headache, | [facility] | | intracranial hemorrhage suspected. COMPARISON: MRI brain | | | 01/20/2005. PROCEDURE: Axial images were obtained through the head | | | without IV contrast. Multiplanar reformations were obtained from the | | | acquisition data. At least one of the following CT dose | | | optimization techniques were used: Automated exposure control; | | | Adjustment of mA and/or kV according to patient size; Use of | | | iterative reconstruction technique. FINDINGS: Brain: No | | | intracranial hemorrhage, midline shift or pathologic mass effect. No | | | cerebral edema, mass lesion, or evidence of acute infarct. Mild | | | diffuse cerebral volume loss. Patchy periventricular and | | | subcortical white matter microvascular gliosis. Ventricles and | | | extra-axial fluid spaces: Normal. Paranasal sinuses and mastoid | | | air cells: Normal. Calvarium and extracranial soft tissues: | | | Normal. Orbits: Imaged portions of the orbits are normal. | | + + + + + | Procedure Note | + + | [facility], [id number] - 09/15/2019 8:[address] HEAD WITHOUT CONTRAST | | | | CLINICAL INFORMATION: | | Headache, intracranial hemorrhage suspected. | | | | COMPARISON: | | MRI brain 01/20/2005. | | | | PROCEDURE: | | Axial images were obtained through the head without IV contrast. | | Multiplanar reformations were obtained from the acquisition data. | | | | At least one of the following CT dose optimization techniques were | | used: Automated exposure control; Adjustment of mA and/or kV according | | to patient size; Use of iterative reconstruction technique. | | | | FINDINGS: | | Brain: No intracranial hemorrhage, midline shift or pathologic mass | | effect. No cerebral edema, mass lesion, or evidence of acute infarct. | | Mild diffuse cerebral volume loss. Patchy periventricular and | | subcortical white matter microvascular gliosis. | | | | Ventricles and extra-axial fluid spaces: Normal. | | | | Paranasal sinuses and mastoid air cells: Normal. | | | | Calvarium and extracranial soft tissues: Normal. | | | | Orbits: Imaged portions of the orbits are normal. | | | | | | IMPRESSION: | | 1. Negative for acute intracranial process. No evidence of mass | | effect, acute hemorrhage or definite acute cortical infarct. | | 2. Mild senescent changes of the brain, as above. | | | | | | | | A preliminary report was sent without significant discrepancy. | | | | Electronically signed by Dominic Arvizu MD 09/15/2019 8:36 AM | + + + +---------+ + + | Performing | Address | City/State/Zipcode | Phone Number | | Organization | | | | + +---------+ + + | [facility] | | | | + +---------+ + + documented in this encounter Visit Diagnoses + + | Diagnosis | + + | Sharp headache - Primary Headache | + + documented in this encounter Administered Medications + +--------+ +--------+------+------+ | Medication Order | MAR | Action | Dose | Rate | Site | | | Action | Date | | | | + +--------+ +--------+------+------+ | carBAMazepine (TEGretol) tablet | Given | 09/15/19 | 200 mg | | | | 200 mg 200 mg, Oral, ONCE, Sat | | 20 12:41 | | | | | 09/15/19 at 0030, For 1 dose, | | AM PDT | | | | | Hazardous: Use appropriate | | | | | | | handling precautions., | | | | | | + +--------+ +--------+------+------+ +---+---+ | | | +---+---+ + +-------+ +-------+---+---+ | diphenhydrAMINE (BENADRYL) | Given | 09/14/19 | 50 mg | | | | injection 50 mg 50 mg, | | 20 10:53 | | | | | Intravenous, ONCE, Tue09/14/19 at | | PM PDT | | | | | 2230, For 1 dose | | | | | | + +-------+ +-------+---+---+ +---+---+ | | | +---+---+ + +-------+ +-------+---+---+ | ketorolac (TORADOL) injection | Given | 09/15/19 | 30 mg | | | | 30 mg 30 mg, Intravenous, ONCE, | | 20 12:07 | | | | | Tue09/14/19 at 2340, For 1 dose | | AM PDT | | | | + +-------+ +-------+---+---+ +---+---+ | | | +---+---+ + +-------+ +-------+---+---+ | metoclopramide (REGLAN) 5 mg/mL | Given | 09/14/19 | 10 mg | | | | injection 10 mg 10 mg, | | 20 10:56 | | | | | Intravenous, ONCE, Tue09/14/19 at | | PM PDT | | | | | 2230, For 1 dose, Protect from | | | | | | | light., | | | | | | + +-------+ +-------+---+---+ +---+---+ | | | +---+---+ + +-------+ +-------+---+---+ | metoclopramide (REGLAN) 5 mg/mL | Given | 09/15/19 | 10 mg | | | | injection 10 mg 10 mg, | | 20 12:03 | | | | | Intravenous, ONCE, Tue09/14/19 at | | AM PDT | | | | | 2340, For 1 dose, Protect from | | | | | | | light., | | | | | | + +-------+ +-------+---+---+ +---+---+ | | | +---+---+ + +---------+ +--------+-------+---+ | sodium chloride 0.9% (NS) bolus | New Bag | 09/14/19 | 1,000 | 1000 | | | 1,000 mL 1,000 mL, Intravenous, | | 20 10:53 | mLs | mL/hr | | | Administer over 1 Hours, ONCE, | | PM PDT | | | | | 09/14/19 at 2230, For 1 dose | | | | | | + +---------+ +--------+-------+---+ +---+---+ | | | +---+---+ documented in this encounter
--- OUTSIDE RECORDS SUMMARY | ~2019-12-19 | XMS | Clinical Summary ---
Demographics + + + | Address | [address] | | | [place] [address] | + + + | Home Phone [...] Team Providers + +------+ + | Care Surgical Services Assistant Name | Role | Phone | [...] of suicidal ideation. Goes to | | [facility] meds prescribed by Dr Zhu Name | | changed by system update on 12/24/2016Overview: History of | | suicidal ideation. Goes to [facility] med[facility] prescribed | | by Dr Zhu Name changed by system update on 12/24/2016 | | | |Overview: | |History of suicidal ideation. Goes to [facility] Psychiatric meds prescribed by | | Dr [...] L?MRN: | | | | | | [id number] | | | [id number] | | | riteri | | | [...] | | | guidel | | | fread | | | and | | | [...] | | | St. | | | [place] | | | y | | | [...] Flags | | | | | | [place] | | | ED | | | Dispar | | | ity | | | Measur | | | e - | | | [place] | | | has | | | [...] | | | s. | | | [place] | | | | | | Health [...] | | | By: | | | [place] | | | | | | Health [...] | | | St. | | | [place] | | | y | | | [...] | | | St. | | | [place] | | | y H. | | [...] | | | St. | | | [place] | | | y H. | | [...] | | | St. | | | [place] | | | y H. | | [...] | | | St. | | | [place] | | | y H. | | [...] | | | St. | | | [place] | | | y H. | | [...] | | | St. | | | [place] | | | y H. | | [...] | | | St. | | | [place] | | | y H. | | [...] | | | otify/ | | | [id number] | | | [id number] | | | [...] [address] | [place] | [phone] | | [facility] | | [address] | | | - LABORATORY | | [...] +--------+ +---------+--------+ | MEDICARE | MEDICA | [id number] | 05/13/19 | [phone] | | Medica | | | RE | | 20-Pre | 5 | | re | | | PART A | | sent | | | | | | AND B | | | | | | + +--------+ +--------+ +---------+--------+ | [employer] | MODA | [id number] | 09/12/19 | [phone] | | Medica | | MEDICAID HMO [...] juventino | | | 8 (Home) | [address] | + +--------+ +--------+ + + Advance Directives + + + + + | Type | Date Recorded | Patient | Explanation | | | | Reel Tender | | + + + + + | Power of | | | | | Ripening Room Hand | | | | + + + + + | Advance | 10/14/2016 9:58 | | | | Directive | AM | | | + + + + +
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
--- OUTSIDE RECORDS SUMMARY | ~2019-12-19 | XMS | Encounter Summary ---
Demographics + + + | Address | [address] | | | [place] [address] | + + + | Home Phone [...] + | Author | [facility] | | | and [place] | + + + | Organization | [facility] | | [...] Team Providers + +------+ + | Care Flooring Machine Feeder Name | Role | Phone [...] [place] | | | | | | [address] | | | | | | [phone] | | | +--------+ + + + [...]
--- OUTSIDE RECORDS SUMMARY | ~2019-12-19 | XMS | Encounter Summary ---
Demographics + + + | Address | [address] | | | [place] [address] | + + + | Home Phone | | + + + | Preferred Language | Unknown | + + + | Marital Status | | + + + | Episcopal Affiliation | 1013 | + + + | Race | White | + + + | Ethnic Group | Not or | + + + Author + + + | Author | [place] [facility] | | | and [place] | + + + | Organization | [place] [facility] | | [...] Team Providers + +------+ + | Care Line Builder Name | Role | Phone | + [...] PHYSIATRY [address] | MD [address] | | | | | [address] | [place], [place] | | | | | [place] | [address] | | | | | [address] | | | | | | [phone] | | | +--------+ + + + [...]
--- OUTSIDE RECORDS SUMMARY | ~2019-12-19 | XMS | Encounter Summary ---
Demographics + + + | Address | [address] | | | [place] [address] | + + + | Home Phone [...] Providers + +------+ + | Care Counter Waitress/Waiter Name | Role | Phone | + [...] PHYSIATRY [address] | MD [address] | | | | | [address] | [place], [place] | | | | | [place], [place] | [address] | | | | | [address] | | | | | | [phone] | | | +--------+ + + + [...] the original. Charmaine, Please let Luz Maria Fidelina Kristine know that I have reviewed her knee [...]
--- OUTSIDE RECORDS SUMMARY | ~2019-12-19 | XMS | Encounter Summary ---
Demographics + + + | Address | [address] | | | [place] [address] | + + + | Home Phone [...] Providers + +------+ + | Care Claims Service Representative Name | Role | Phone | [...] + + | 09/13/ | Emergency | [facility] | Jeff Dangelo, | Sharp headache | | 2019 - | | MED CTR EMERGENCY | MD [address] | (Primary Dx) | | | | CENTER [address] | [facility] [place] | | | 09/14/ | | [place] | [place] [address] | | | 2019 | | [address] | [phone] | | | | | [phone] | | | +--------+ + + + [...] be sent through Care Everywhere.Headache, Unspe cified (Moroccan)Trigeminal Neuralgia (Moroccan)documented in this encounter Medications at Time of [...] Sharp MD - 09/14/2019 10:27 PM PDT [facility] Luz Maria [place] EMERGENCY DEPARTMENT ENCOUNTER NOTE [address] [place] [address] PCP:Abimael Devlin MD CHIEF COMPLAINT Chief Complaint [...] that. Her primary care provider is in [facility]. She lives in [facility]. She prefers to come to the ER here in [facility]. She is accompanied by a friend but she is providing her own history. She took some I mitrex earlier today and it didn't help. No vision changes. PAST MEDICAL HISTORY Past Medical History: Diagnosis Date Anxiety and depression Arthritis Asthma with associated shortness of breath Bipolar 1 disorder (HCC) Cervical dystonia Cervicalgia Chronic daily headache Chronic pain Depression treated through [facility] Diabetes mellitus ([facility]) 1999 Diverticulitis Environmental allergies Fibromyalgia managed by [...] Procedure: COLONOSCOPY; Surgeon: Patrick England MD; Location: [facility] MEDICAL PROC[facility]URE [facility] HYSTERECTOMY KNEE CARTILAGE SURGERY right low back surgery x 2 Fusion L5-6 TUBAL LIGATION WRIST FRACTURE SURGERY left x2 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 Social History Narrative Lives in [place] in apartment. REVIEW OF SYSTEMS All systems [...] Medicine Contact information: [address] [place] [address] Discharge Medication List as of 09/15/2019 12:37 [...] L?MRN: | | | | | | [id number] | | | [id number] | | | riteri | | | [...] | | | St. | | | [place] | | | y | | | [...] Flags | | | | | | [place] | | | ED | | | Dispar | | | ity | | | Measur | | | e - | | | [place] | | | has | | | [...] | | | s. | | | [place] | | | | | | Health [...] | | | By: | | | [place] | | | | | | Health [...] | | | St. | | | [place] | | | y | | | [...] | | | St. | | | [place] | | | y H. | | [...] | | | St. | | | [place] | | | y H. | | [...] | | | St. | | | [place] | | | y H. | | [...] | | | St. | | | [place] | | | y H. | | [...] | | | St. | | | [place] | | | y H. | | [...] | | | St. | | | [place] | | | y H. | | [...] [address] | [place] | [phone] | | [facility] | | [address] | | | - LABORATORY | | [...] | non- | FILTRATION | mL/min/1.73m2 | [facility] | | | [place] | RATE,ESTIMATED | | MEDICAL | | | | mL/min/1.10y3Qkgo than | | CENTER - | | [...] [address] | [place] | [phone] | | [facility] | | [address] | | | - LABORATORY | | [...] + | [address] | [address] | [place] | [phone] | | [facility] | | [address] | | | - LABORATORY | | [...] + | [address] | [address] | [place], [place] | [phone] | | [facility] | | [address] | | | - LABORATORY | | [...] | Procedure Note | + + | [facility], [id number] - 09/15/2019 8:[address] HEAD [...]
--- OUTSIDE RECORDS SUMMARY | ~2019-12-19 | XMS | Encounter Summary ---
Demographics + + + | Address | [address] | | | [place] [address] | + + + | Home Phone [...] Team Providers + +------+ + | Care Authors Motivational Name | Role | Phone | + +------+ + | Wicho Starkey MD | PCP | | + +------+ + Encounter Details +--------+ + + + + | Date | Type | Department | Care Team | Description | +--------+ + + + + | 12/04/ | Hospital | [facility] | Leonidas Hudldeston, | Right knee pain; | | 2014 | Encounter | MED CTR XRAY [address] | MD [address] | Swelling of right | | | | [place] | [place], [place] | knee joint | | | | [place] [address] | [address] | | | | | [phone] | | | +--------+ + + + [...] COMPARISON: None. FINDINGS:Frontal weightbearing views of both [facility] | | knees. A lateral view [...] ST. | [address] | [place] | [phone] | | [facility] | | [address] | | | - IMAGING | | [...]
--- OUTSIDE RECORDS SUMMARY | ~2019-12-19 | XMS | Encounter Summary ---
Demographics + + + | Address | [address] | | | [place] [address] | + + + | Home Phone [...] Team Providers + +------+ + | Care Lombardi Developer Name | Role | Phone | [...] PHYSIATRY [address] | MD [address] | Assistance | | | | [address] | [place] | | | | | [place] | [address] | | | | | [address] | | | | | | [phone] | | | +--------+ + + + [...]
--- OUTSIDE RECORDS SUMMARY | ~2019-12-19 | XMS | Encounter Summary ---
Demographics + + + | Address | [address] | | | [place] [address] | + + + | Home Phone [...] Providers + +------+ + | Care Staff Anesthesiologist Name | Role | Phone | + [...] + | 01/31/ | Office | [facility] | Sundeep Ba PA | CONSUELO on CPAP (Primary | | 2018 | Visit | SLEEP DISORDER [address] | [address] | Dx) | | | | [address] [place] | [place] | | | | | [place] [address] | [address] | | | | | [phone] | | | +--------+---------+ + + + [...] AirSense 10 with nasal mask obtained from: [employer] in [place] pressure: 9-20 cm (lowered to 4-8 cm [...] not contact our office or [facility] Home [facility] in [place]. She thinks her power cord may have [...] Exam Assessment: Problem #1: OBSTRUCTIVE SLEEP APNEA ([id number]) This is controlled with CPAP. She improved her usage with her CPAP, but is still inconsist ent with it. Plan: 1. She is to continue with CPAP indefinitely. 2. She is to work toward wearing her CPAP 100% of the time she is asleep. I will follow up again in 2 months, sooner prn. Fifteen minutes were spent ozmu-gw-eule, w ith the majority of time spent [...]
--- OUTSIDE RECORDS SUMMARY | ~2019-12-19 | XMS | Encounter Summary ---
Demographics + + + | Address | [address] | | | [place] [address] | + + + | Home Phone [...] + | Author | [facility] | | | and [place] | + + + | Organization | [facility] | | | [...] Providers + +------+ + | Care Care Team Coordinator Scheduler Name | Role | Phone | + +------+ + | iWcho Starkey MD | PCP | | + [...] Medicine | Obstructive | Andre Arnold | [place] [address] [address] | | | Required | | sleep apnea | Jr[address] | [place] | | | | | (adult) | [place] | [place], | | | | | (pediatric) | [place] | [place] [address] | | | | | Bipolar I | [facility], [place] | Phone: | | | | | disorder, | [address] | [phone] | | | | | most recent | Phone: | Fax: | | | | | episode (or | [phone] | [phone] | | | | | current) | Fax: | | | | | | unspecified | [phone] | | | | | | Type [...] | | | | | | [place] POLYSOM | | | | | | | 6/>YRS SLEEP | | | | | | | 4/> ADDL | | | | | | | LEESA ATTND | | | | | | | [place] POLYSOM | | | | | | | 6/>YRS SLEEP | | | | | | | W/CPAP 4/> | | | | | | | ADDL LEESA | | | | | | | ATTND | | | | | | | Having [address] | | | | | | | not [address] | | | +--------+ + + + [...] | | | | | Snoring | [address] | [address] [place] | | | | | Apnea | [place], | [place], | | | | | | [place] [address] | [place] [address] | | | | | | Phone: | Phone: | | | | | | [phone] | [phone] | | | | | | Fax: | Fax: | | | | | | [phone] | [phone] | +--------+ + + + + + Encounter Details +--------+---------+ + + + | Date | Type | Department | Care Team | Description | +--------+---------+ + + + | 10/07/ | Office | [facility] | Andre Ugarte | CONSUELO (obstructive | | 2015 | Visit | SLEEP DISORDER [address] | MD Jan [address] | sleep apnea) | | | | [address] [place] | [place] [address] [place] | (Primary Dx); | | | | [place] [address] | [place] [address] | Bipolar 1 disorder | | | | [phone] | [phone] | ([facility]); Fibromyalgia; | | | | | | Diabetes mellitus | | | | | | ([facility]); Essential | | | | [...] the night, making your sleep fragmentedwith a java sql developer stage of sleep. Even though you do not remember waking up many times during the night to a java sql developer sleep, you fee l tired the next [...] block the airway when you re asleep. 2868-2881 The [employer]. [address] [place] [address]. All righ ts reserved. This information is [...] types of CPAP. Your doctor or CPAP telecommunications field technician will help you decide whic h [...] as body position, sleep stage, and snoring. [phone] [employer]. [address] [place] [address]. All righ ts reserved. This information is [...] get used to wearing the mask at [facility]. Practice using your CPAP device during [...] may recommend moistening nasal spray or the [employer] supply [employer] may recommend a d evice with a [...] to correctly use your CPAP. Thekavita r loan representative will be able to help you: Use the CPAP correctly Troubleshoot any problems that come up Learn to clean and maintain the device Adjust to regular use of the CPAP 6565-4327 [employer]. [address] [place] [address], [place] [address]. All righ ts reserved. This information is not intended as a substitute for professional medical care. Always follow your healthcare professional's instructions. documented in this encounter Progress Notes Andre Ugarte Jr., MD - 10/07/2014 2:32 PM PDTFormatting of this note might be differen t from the original. [facility] [place] [address] Ref: Leonidas Huddleston MD CC: Chief Complaint Patient presents with Consult Snoring History of the Present Illness:This is a 59 year old female who is referred for sleep medic ine consultation by Dr. Leonidas Huddleston because of possible CONSUELO. Other significant medical iss ues include chronic pain, Anxiety-Depression, Asthma, ASCVD (history of [place]), HBP, AODM. The patient's records ([facility] EMR) are reviewed. The patient is interviewed [...] of Education: GED Occupational History Disabled from [employer] Social History Main Topics Smoking status: Former Smoker -- 0.50 packs/day for 10 years Types: Cigarettes Quit date: 06/21/2014 Smokeless tobacco: Never Used Alcohol Use: No Drug Use: No Sexual Activity: None Other Topics Concern None Social History Narrative Lives [address] in apartment. Review of Systems: Constitutional: Denies [...]
--- OUTSIDE RECORDS SUMMARY | ~2019-12-19 | XMS | Encounter Summary ---
Demographics + + + | Address | [address] | | | [place] [address] | + + + | Home Phone [...] + | 01/28/ | Office | [facility] | Andre Ugarte | CONSUELO (obstructive | | 2015 | Visit | SLEEP DISORDER [address] | MD Jan [address] | sleep apnea) | | | | [address] [place] | [address] [place] | (Primary Dx) | | | | [place] [address] | [place] [address] | | | | | [phone] | [phone] | | | | | | | [...] get used to wearing the mask at [facility]. Practice using your CPAP device [...] to correctly use your CPAP. The r client care representative will be able to help you: Use the CPAP correctly Troubleshoot any problems that come up Learn to clean and maintain the device Adjust to regular use of the CPAP 6697-6447 The [employer]. [address] [place] [address], [place] [address]. All righ ts reserved. This information is [...] Polysomnography under "Media" se ction in the [employer] EMR. Definitions (The AASM Manual for the [...]
--- OUTSIDE RECORDS SUMMARY | ~2019-12-19 | XMS | Encounter Summary ---
Demographics + + + | Address | [address] | | | [place] [address] | + + + | Home Phone [...] Providers + +------+ + | Care Business Improvement Manager Name | Role | Phone | [...] | | | | | positional | [address] | y [address] | | | | | vertigo | [place], | [address] [place] | | | | | Procedures | [place] [address] | [address] [place] | | | | | 10/25 PEND | Phone: | [place] | | | | | [place] | [phone] | [address] | | | | | | Fax: | Phone: | | | | | | [phone] | [phone] | | | | | | | Fax: | | | | | | | [phone] | +--------+ + + + + + Encounter Details +--------+---------+ + + + | Date | Type | Department | Care Team | Description | +--------+---------+ + + + | 11/27/ | Office | [facility] | Leonidas Mohr, | BPPV (benign | | 2015 | Visit | OTOLARYNGOLOGY [address] | [address] | paroxysmal | | | | [address] | [place] | positional vertigo), | | | | [place] | [address] | bilateral (Primary | | | | [address] | | Dx); Sensorineural | | | | [phone] | Leonidas Mohr MD | hearing loss, | | | | | [address] [place] | bilateral | | | | | [address] [place] | | | | | | [address] | | | | | | | [...] MD - 11/27/2014 2:23 PM PDT [facility] OTOLARYNGOLOGY [address] [place] [address] OFFICE NOTE LEONIDAS MOHR MD Patient: LUZ MARIA LOCKWOOD Admitting: MR #: [id number] LOC: PT TYPE: Adm Date: 11/27/2014 : [...] were normal A-shaped tympanograms. The patient's speech cashier receptionist threshold is 25 dB bilaterally. Speech [...] the patient so she could remind f riemerson and family that they need to talk directly towards her so that she can hear well. S he would need a followup hearing exam typically in the next 1-2 years. LEONIDAS MOHR MD Dictated by LEONIDAS MOHR MD 11/27/2014 14:23:51 Transcribed on 11/27/2014 14:43:01 by tamy job# [id number] Confirmation #: [id number] cc: EPI STARKEY MD a rust, Leonidas Campos MD - 11/27/2014 2:19 PM PDTSee dictation #[id number] signed by Leonidas Mohr MD at 11/27/2014 2:25 PM PDTdocumented in this encounter Plan of Treatment + + +--------+ + + | Name | Type | Priori | Associated Diagnoses | Order Schedule | | | | ty | | | + + +--------+ + + | * [place] | Outpatient | Routin | Vertigo [...]
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
--- OUTSIDE RECORDS SUMMARY | ~2019-12-19 | XMS | Encounter Summary ---
Demographics + + + | Address | [address] | | | [place] [address] | + + + | Home Phone | | + + + | Preferred Language | Unknown | + + + | Marital Status | | + + + | Religion Affiliation | 1013 | + + + [...] Team Providers + +------+ + | Care Coil Winder Strap Name | Role | Phone | + [...] | | | | | positional | [address] | [address] | | | | | vertigo | [place], | [address] [place] | | | | | Procedures | [place] [address] | [address] [place] | | | | | 10/25 PEND | Phone: | [place] Franz | | | | | [place] | [phone] | [address] | | | | | | Fax: | Phone: | | | | | | [phone] | [phone] | | | | | | | Fax: | | | | | | | [phone] | +--------+ + + + + + Encounter Details +--------+---------+ + + + | Date | Type | Department | Care Team | Description | +--------+---------+ + + + | 11/27/ | Office | [facility] | Leonidas Mhor, | BPPV (benign | | 2015 | Visit | OTOLARYNGOLOGY [address] | [address] | paroxysmal | | | | [address] | [place] | positional vertigo), | | | | [place] | [address] | bilateral (Primary | | | | [address] | | Dx); Sensorineural | | | | [phone] | Leonidas Mohr MD | hearing loss, | | | | | [address] [place] | bilateral | | | | | [address] [place] | | | | | | [address] | | | | | | | [...] MD - 11/27/2014 2:23 PM PDT [facility] OTOLARYNGOLOGY [address] [place] [address] OFFICE NOTE LEONIDAS MOHR MD Patient: LUZ MARIA LOCKWOOD Admitting: MR #: [id number] LOC: PT TYPE: Adm Date: 11/27/2014 : [...] were normal A-shaped tympanograms. 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 Speech [...] Transcribed on 11/27/2014 14:43:01 by tamy job# [id number] Confirmation #: [id number] cc: EPI STARKEY MD a [facility], Leonidas Campos MD - 11/27/2014 2:19 PM PDTSee dictation #[id number] signed by Leonidas Mohr MD at 11/27/2014 [...]
--- OUTSIDE RECORDS SUMMARY | ~2019-12-19 | XMS | Encounter Summary ---
Demographics + + + | Address | [address] | | | [place] [address] | + + + | Home Phone [...] Team Providers + +------+ + | Care Sanitary Engineer Name | Role | Phone | [...] + | 02/18/ | Telephone | [facility] | Sundeep Ba PA | Other | | 2014 | | SLEEP DISORDER [address] | [address] | | | | | [address] [place] | [place], [place] | | | | | [place] [address] | [address] | | | | | [phone] | | | +--------+ + + + [...] Miscellaneous Notes Telephone Encounter - Ingris Su, Credit Risk Analytics Manager - 02/19/2015 9:45 AM Gregg valenzuela lled back, She was notified regarding KIMI Talbot. Rx for pressure changes reid denisee been faxed to [facility] ([place]). Luz Maria will give this a try and follow up wi th KIMI Talbot at her next appointment. elephone Encounter - Ingris Su Credit Risk Analytics Manager - 02/19/2015 9:36 AM PSTCalled unable to [...]
--- OUTSIDE RECORDS SUMMARY | ~2019-12-19 | XMS | Encounter Summary ---
Demographics + + + | Address | [address] | | | [place] [address] | + + + | Home Phone [...] Team Providers + +------+ + | Care Anatomic Pathology Assistant Name | Role | Phone | [...] PHYSIATRY [address] | MD [address] | | | | | [address] | [place], [place] | | | | | [place] | [address] | | | | | [address] | | | | | | [phone] | | | +--------+ + + + [...] Varela RN - 01/07/2016 9:19 AM PDTReturned [employer]'s phone call and she states the Lyrica [...] Faust - 01/06/2016 10:56 AM [facility]. Please call her at [phone] ext [phone]. Please advise documented in t his encounter Plan of Treatment Not on filedocumented as of this encounter Visit Diagnoses Not on filedocumented in this encounter
--- OUTSIDE RECORDS SUMMARY | ~2019-12-19 | XMS | Encounter Summary ---
Demographics + + + | Address | [address] | | | [place] [address] | + + + | Home Phone [...] Author | [facility] | | | and [place] | + + + | Organization | [facility] | | | [...] Team Providers + +------+ + | Care Lens Grinder Name | Role | Phone | + [...] + | 07/28/ | Office | [facility] | Sundeep Ba PA | CONSUELO on CPAP (Primary | | 2018 | Visit | SLEEP DISORDER [address] | [address] | Dx) | | | | [address] [place] | [place] | | | | | [place] [address] | [address] | | | | | [phone] | | | +--------+---------+ + + + [...] in this encounter Progress Notes Earnestine Haley, Sales Designer - 07/28/2017 2:00 PM PDTFormatting of this note might b e different from the original. 07/28/17 1300 Tilley Depression Inventory-II Depression Score 34 - Severe depression Insomnia Severity Index Insomnia Severity Index 24 Norton Sleepiness Scale Sitting and reading 2 Watching [...] AirSense 10 with nasal mask obtained from: [facility] in [place] pressure: 9-20 cm (lowered to 4-8 cm [...] Exam Assessment: Problem #1: OBSTRUCTIVE SLEEP APNEA ([id number]-W38.33) This is controlled with CPAP, but she hasn't used it in the last year. Plan: 1. She is to continue with CPAP indefinitely. 2. She is to work toward wearing her CPAP 100% of the time she is asleep. I will follow up again in 1 month, sooner prn. Fifteen minutes were spent ctar-ok-julf, wi th the majority of time spent [...]
--- OUTSIDE RECORDS SUMMARY | ~2019-12-19 | XMS | Encounter Summary ---
Demographics + + + | Address | [address] | | | [place] [address] | + + + | Home Phone [...] Team Providers + +------+ + | Care Dye Range Tender Name | Role | Phone | [...] | | | | CENTER [address] | [place] | laterality (Primary | | | | [place], [place] | [address] | Dx) | | | | [address] | | | | | | [phone] | | | +--------+ + + + [...] daily headache Chronic pain Depression treated through [employer] Diabetes mellitus (HCC) 1999 Diverticulitis Environmental allergies [...] Procedure: COLONOSCOPY; Surgeon: Patrick England MD; Location: [facility] HYSTERECTOMY KNEE CARTILAGE [...] Concern None Social History Narrative Lives in [place] in apartment. CURRENT MEDICATIONS Previous Medications ALBUTEROL [...] needed for Pain. Rj Leung MD 03/27/18 9410 ry, Rae Zazueta RN - 0 03/27/2018 [...]
--- OUTSIDE RECORDS SUMMARY | ~2019-12-19 | XMS | Encounter Summary ---
Demographics + + + | Address | [address] | | | [place] [address] | + + + | Home Phone [...] + | Author | [facility] | | | and [place] | + + + | Organization | [facility] | | | [...] Team Providers + +------+ + | Care Behaviorist Name | Role | Phone | + [...] | | Required | | Sensorineura | [address] [place] | | | | | l hearing | [address] | [place], | | | | | loss, | [place], | [place] [address] | | | | | bilateral | [place] [address] | Phone: | | | | | Benign | Phone: | [phone] | | | | | paroxysmal | [phone] | Fax: | | | | | positional | Fax: | [phone] | | | | | vertigo | [phone] | | | | | | [phone] | | | | | | | [...] | 2015 | | OTOLARYNGOLOGY [address] | [address] [place] | positional vertigo, | | | | [address] | [address] [place] | unspecified | | | | [place] | [address] | laterality (Primary | | | | [address] | | Dx); Sensorineural | | | | [phone] | | hearing loss, | | | [...]
--- OUTSIDE RECORDS SUMMARY | ~2019-12-19 | XMS | Encounter Summary ---
Demographics + + + | Address | [address] | | | [place] [address] | + + + | Home Phone [...] Team Providers + +------+ + | Care Buckle Strap Puncher Name | Role | Phone | + [...] [place], [place] | | | | | [place], [place] | [address] | | | | | [address] | | | | | | [phone] | | | +--------+--------+ + + + [...]
--- OUTSIDE RECORDS SUMMARY | ~2019-12-19 | XMS | Encounter Summary ---
Demographics + + + | Address | [address] | | | [place] [address] | + + + | Home Phone [...] Team Providers + +------+ + | Care Painting Trades Worker Name | Role | Phone | [...] Medicine | Obstructive | Andre Arnold | [place] [address] [address] | | | Required | | sleep apnea | JrMD [address] | [place] | | | | | (adult) | [place] | [place], | | | | | (pediatric) | [place] | [place] [address] | | | | | Bipolar I | [facility], [place] | Phone: | | | | | disorder, | [address] | [phone] | | | | | most recent | Phone: | Fax: | | | | | episode (or | [phone] | [phone] | | | | | current) | Fax: | | | | | | unspecified | [phone] | | | | | | Type [...] | | | | | | | SC POLYSOM | | | | | | | 6/>YRS SLEEP | | | | | | | 4/> ADDL | | | | | | | LEESA ATTND | | | | | | | SC POLYSOM | | | | | | | 6/>YRS SLEEP | | | | | | | W/CPAP 4/> | | | | | | | ADDL LEESA | | | | | | | ATTND | | | | | | | Having [id number] | | | | | | | not [address] | | | +--------+ + + + + + Encounter Details +--------+ + + + + | Date | Type | Department | Care Team | Description | +--------+ + + + + | 12/03/ | Hospital | [facility] | Andre Ugarte | Obstructive sleep | | 2015 | Encounter | MED CTR SLEEP | MD Jan [address] [place] [address] | apnea (adult) | | | | [address] [place] | [facility] | (pediatric) (Primary | | | | [place], [place] | [place] [address] | Dx); [place] | | | | [address] | [phone] | (obstructive sleep | | | | [phone] | | apnea) | +--------+ + + [...] Jr., MD - 12/05/2014 1:18 PM PDTProcedure(s): [place] [address] POLYSOMNOGRAPHY W/CPAPPre-Procedure Diagnose(s): CONSUELO (obstructive sleep apnea)Post-Procedure Diagnose(s): O SA (obstructive sleep apnea) [facility] [place] [address] Split-Night Polysomnogram/Positive Airway Pressure Titration Report on Luz Maria Carmona Performed on 12/03/2014. Clinical Information: Luz Maria Carmona is a 59 y.o. female who underwent nocturnal bernardino ysomnography using a "Split-Night" Protocol on 12/03/[address] José Antonio Huddleston be cause of possible Obstructive Sleep Apnea. Technical Information: Please see technical data stored as Polysomnography under "Media" se ction in the [facility] EMR. Definitions (The AASM Manual [...] 9-20cm is advised. Andre Ugarte Jr., MD, [facility] Stockroom Supervisor Cornelia Del Rosario [facility] Mario Martin [place] Clinical spooling supervisor [facility], [place] documented in th is encounter [...]
--- OUTSIDE RECORDS SUMMARY | ~2019-12-19 | XMS | Encounter Summary ---
Demographics + + + | Address | [address] | | | [place] [address] | + + + | Home Phone [...] Team Providers + +------+ + | Care Well Service Floor Worker Name | Role | Phone | [...] Rehabilitatio | Fibromyalgia | [address] | | | n | | [address] | [place], | | | | | Cervicalgia | [place], | [place] [address] | | | | | Cervical | [place] [address] | Phone: | | | | | dystonia | Phone: | [phone] | | | | | History of | [phone] | Fax: | | | | | cervical | Fax: | [phone] | | | | | spinal | [phone] | | | | | | surgery [...] | | | Rehabilitatio | neuralgia | GRAVITY PROSPECTOR [address] | | | | n | neck pain | [address] [place] | [place], | | | | | follow up | [address] | [place] [address] | | | | | | [place], | Phone: | | | | | | [place] [address] | [phone] | | | | | | Phone: | Fax: | | | | | | [phone] | [phone] | | | | | | Fax: | | | | | | | [phone] | | +--------+--------+ + + + + Encounter Details +--------+---------+ + + + | Date | Type | Department | Care Team | Description | +--------+---------+ + + + | 07/31/ | Office | [facility] | Leonidas Mohr, | Chronic daily | | 2015 | Visit | PHYSIATRY [address] | MD [address] | headache (Primary | | | | [address] | [place] | Dx); Migraine | | | | [place] | [address] | without aura and | | | | [address] | | without status | | | | [phone] | | migrainosus, not | | | [...] physical therapy within one week, please contact [facility]. Once you have completed physical therapy please continue the home exercise progr am as outline by physical therapy, indefinitely. Return to the clinic in 3 months. documented in this encounter Progress Notes Leonidas Mohr MD - 08/01/2015 10:48 AM PDT [facility] PHYSIATRY [address] [facility] [id number] OFFICE NOTE LEONIDAS MOHR JR, MD Patient: LUZ MARIA [place]OCKWOOD Admitting: MR #: [id number] LOC: PT TYPE: Adm Date: 08/01/2015 : [...] that she also ran out of her [employer] a month ago. Since running out of her [employer], her headaches have been worse. She has had a headache all day every day for more th an 2 weeks. Prior to being on both ibuprofen and naproxen at the same time, as well as landy or to her running out of [employer], she was having headaches on a weekly [...] has nausea and vomiting with her headaches. Junaa campos was prescribed Zofran 4 mg every [...] Transcribed on 08/01/2015 11:20:21 by viktoria job# [id number] Confirmation #: [id number] cc: JANELLE BUSCH NP ox [place] LawnLeonidas MD - 08/01/2015 10:40 AM PDTThis office note has been dictated. Job ID# [id number] signed by Leonidas Mohr MD at 08/01/2015 [...]
--- OUTSIDE RECORDS SUMMARY | ~2019-12-19 | XMS | Encounter Summary ---
Demographics + + + | Address | [address] | | | [place] [address] | + + + | Home Phone | | + + + | Preferred Language | Unknown | + + + | Marital Status | | + + + | Yarsani Affiliation | 1013 | + + + [...] Team Providers + +------+ + | Care Video Network Engineer Name | Role | Phone | + +------+ + | Wicho Starkey MD | PCP | | + +------+ + Reason for Visit +--------+--------+ + | Reason | Onset | Comments | | | Date | | +--------+--------+ + | Other | 09/03/ | | | | 2014 | | +--------+--------+ + Encounter Details +--------+ + + + + | Date | Type | Department | Care Team | Description | +--------+ + + + + | 09/03/ | Telephone | [facility] [place] | Leonidas Huddleston, | Other | | 2014 | | PHYSIATRY [address] | MD [address] | | | | | [address] | [place], [place] | | | | | [place], [place] | [address] | | | | | [address] | | | | | | [phone] | | | +--------+ + + + [...] at 09/03/2014 9:53 AM PDTTelephone Encounter - Karin Foss - 09/03/2014 8:31 AM PDTDeborah called to schedule her PT, but [facility] did not have the referral yet. I see it authorized 08/23. Fax number for them is . document ed in this encounter Plan of Treatment Not on filedocumented as of this encounter Visit Diagnoses Not on filedocumented in this encounter"
--- OUTSIDE RECORDS SUMMARY | ~2019-12-19 | XMS | Encounter Summary ---
Demographics + + + | Address | [address] | | | [place] [address] | + + + | Home Phone [...] + +------+ + | Care Director Of People Name | Role | Phone | + [...] PHYSIATRY [address] | MD [address] | | | | | [address] | [place] | | | | | [place] | [address] | | | | | [address] | | | | | | [phone] | | | +--------+ + + + [...]
--- OUTSIDE RECORDS SUMMARY | ~2019-12-19 | XMS | Encounter Summary ---
Demographics + + + | Address | [address] | | | [place] [address] | + + + | Home Phone [...] Author | [facility] | | | and [place] | + + + | Organization | [facility] | | [...] Team Providers + +------+ + | Care Pivot End Polisher Name | Role | Phone | [...] PHYSIATRY [address] | MD [address] | headache; | | | | [address] | [place] | Fibromyalgia | | | | [place] | [address] | | | | | [address] | | | | | | [phone] | | | +--------+ + + + [...]
--- OUTSIDE RECORDS SUMMARY | ~2019-12-19 | XMS | Encounter Summary ---
Demographics + + + | Address | [address] | | | [place] [address] | + + + | Home Phone | | + + + | Preferred Language | Unknown | + + + | Marital Status | | + + + | Sabianism Affiliation | 1013 | + + + | Race | White | + + + | Ethnic Group | Not or | + + + Author + + + | Author | [facility] | | | and [place] | + + + | Organization | [facility] | | | [...] Team Providers + +------+ + | Care Jumpbasting Collar Baster Name | Role | Phone | + [...] + | 03/10/ | Telephone | [facility] | Sundeep Ba PA | Apnea | | 2014 | | SLEEP DISORDER [address] | [address] | | | | | [address] [place] | [place], [place] | | | | | [place] [address] | [address] | | | | | [phone] | | | +--------+ + + + [...] part of her sleep r outine. Sundeep [place] documente d in this encounter Plan of Treatment Not on filedocumented as of this encounter Visit Diagnoses Not on filedocumented in this encounter"
--- OUTSIDE RECORDS SUMMARY | ~2019-12-19 | XMS | Encounter Summary ---
Demographics + + + | Address | [address] | | | [place] [address] | + + + | Home Phone [...] Team Providers + +------+ + | Care Strategic Marketing Leader Name | Role | Phone | + +------+ + | Teena Busch NP | PCP | | + +------+ + Encounter Details +--------+ + + + + | Date | Type | Department | Care Team | Description | +--------+ + + + + | 11/25/ | Documentati | [facility] [facility] | Sundeep Ba PA | | | 2016 | on | SLEEP DISORDER [address] | [address] | | | | | [address] [place] | [place] | | | | | [place] [address] | [address] | | | | | [phone] | | | +--------+ + + + [...]
--- OUTSIDE RECORDS SUMMARY | ~2019-12-19 | XMS | Encounter Summary ---
Demographics + + + | Address | [address] | | | [place] [address] | + + + | Home Phone [...] Team Providers + +------+ + | Care Lamination Builder Name | Role | Phone | [...] [place] | | | | | | [address] | | | | | | [phone] | | | +--------+ + + + [...]
--- OUTSIDE RECORDS SUMMARY | ~2019-12-19 | XMS | Encounter Summary ---
Demographics + + + | Address | [address] | | | [place] [address] | + + + | Home Phone [...] Providers + +------+ + | Care Technical Architect Name | Role | Phone | + +------+ + | Abimael Devlin MD | PCP | | + +------+ + Encounter Details +--------+ + + + + | Date | Type | Department | Care Team | Description | +--------+ + + + + | 07/04/ | Imaging | [facility] | Provider, | | | 2019 | Exam | MED CTR EXTERNAL | MD [address] | | | | | IMAGING [address] | [address] | | | | | [address] | [place] [address] | | | | | [place] [address] | | | | | | [phone] | | | +--------+ + + + [...]
--- OUTSIDE RECORDS SUMMARY | ~2019-12-19 | XMS | Encounter Summary ---
Demographics + + + | Address | [address] | | | [place] [address] | + + + | Home Phone | | + + + | Preferred Language | Unknown | + + + | Marital Status | | + + + | Amish Affiliation | 1013 | + + + | Race | White | + + + | Ethnic Group | Not or | + + + Author + + + | Author | [facility] | | | and [place] | + + + | Organization | [facility] | | [...] Providers + +------+ + | Care Manager Shop Name | Role | Phone | + +------+ + | Abimael Devlin MD | PCP | | + +------+ + Encounter Details +--------+ + + + + | Date | Type | Department | Care Team | Description | +--------+ + + + + | 04/03/ | Orders Only | [facility] | Max Gillette, | | | 2014 | | CARDIOLOGY CHEN | [address] | | | | | NUC MED [address] | [place], | | | | | [address] | [place] [address] | | | | | [place] | [phone] | | | | | [address] | | | | | | [phone] | | | +--------+ + + + [...] Performed At | + + + | [facility] CARDIOLOGY Nuclear Lexiscan Stress Test | [...] Tha, Rad Conversion - 11/03/2018 12:23 PM [facility] CARDIOLOGYNuclear | | Lexiscan Stress [...]
--- OUTSIDE RECORDS SUMMARY | ~2019-12-19 | XMS | Encounter Summary ---
Demographics + + + | Address | [address] | | | [place] [address] | + + + | Home Phone [...] Author | [facility] | | | and [place] | + + + | Organization | [facility] | | [...] Team Providers + +------+ + | Care Identity Management Developer Name | Role | Phone | + +------+ + PCP | Unavailable | + +------+ + Encounter Details +--------+ + + + + | Date | Type | Department | Care Team | Description | +--------+ + + + + | 01/20/ | Hospital | [facility] | Hans Sheikh | CONVULSIONS NEC | | 2004 | Encounter | CONVERSION DEP [address] | [address] | ([facility]) | | | | [address] | [place] | | | | | [place] | [address] | | | | | [address] | [phone] | | | | | [phone] | | | +--------+ + + + [...]
--- OUTSIDE RECORDS SUMMARY | ~2019-12-19 | XMS | Encounter Summary ---
Demographics + + + | Address | [address] | | | [place] [address] | + + + | Home Phone [...] + + + | Author | [facility] | | | and [place] | + + + | Organization | [facility] | | | [...] Team Providers + +------+ + | Care Bus Info Consultant Name | Role | Phone | [...] 2016 | | GASTROENTEROLOGY | [address], [place] | | | | | [address] [place] | [address] [place], [place] | | | | | [address] [place], [place] | [address] | | | | | [address] | | | | | | [phone] | | | +--------+ + + + [...]
--- OUTSIDE RECORDS SUMMARY | ~2019-12-19 | XMS | Encounter Summary ---
Demographics + + + | Address | [address] | | | [place] [address] | + + + | Home Phone [...] | Author | [facility] | | | and [place] | + + + | Organization | [facility] | | | [...] Providers + +------+ + | Care Canvas Cutter Machine Name | Role | Phone | [...] + + | 01/08/ | Office | [facility] | Leonidas Mohr, | Fibromyalgia | | 2016 | Visit | PHYSIATRY [address] | MD [address] | (Primary Dx); | | | | [address] | [place], [place] | Chronic daily | | | | [place], [place] | [address] | headache; Migraine | | | | [address] | | without aura and | | | | [phone] | | without status | | | [...] MD - 01/09/2016 12:52 PM PDT [facility]AT[facility] [address] [facility] [address] OFFICE NOTE LEONIDAS MOHR JR, MD Patient: LUZ MARIA LOCKWOOD Admitting: MR #: [id number] LOC: PT TYPE: Adm Date: 01/09/2016 : [...] 09/2015. She has not yet completed the Peerform work. CBC was also requested at the [...] 01/09/2016 12:52:20 Transcribed on 01/10/2016 09:17:55 by [facility] job# [id number] Confirmation #: [id number] cc: ABIMAEL DEVLIN MD Leonidas Mohr MD - 01/09/2016 12:40 PM PDTThis office note has been dictated. Report Confirmation# [id number] signed by Leonidas Mohr MD at 01/09/2016 [...]
--- OUTSIDE RECORDS SUMMARY | ~2019-12-19 | XMS | Encounter Summary ---
Demographics + + + | Address | [address] | | | [place] [address] | + + + | Home Phone [...] Organization | [facility] | | | and [place] | + [...] Team Providers + +------+ + | Care Infirmary Attendant Name | Role | Phone | [...] | Leonidas Irving MD | [address] | | | | | pain | [address] | [place], | | | | | Swelling of | [address] | [place] | | | | | right knee | [place], | [address] | | | | | joint | [place] [address] | Phone: | | | | | Procedures | Phone: | [phone] | | | | | MRI Knee | [phone] | Fax: | | | | | Right wo | Fax: | [phone] | | | | | Contrast | [phone] | | +--------+--------+ + + + + [...] | Leonidas Irving MD | [address] | | | | | pain | [address] | [place], | | | | | Swelling of | [address] | [place] | | | | | right knee | [place], | [address] | | | | | joint | [place] [address] | Phone: | | | | | Procedures | Phone: | [phone] | | | | | MRI Knee | [phone] | Fax: | | | | | Right wo | Fax: | [phone] | | | | | Contrast | [phone] | | +--------+--------+ + + + + Encounter Details +--------+ + + + + | Date | Type | Department | Care Team | Description | +--------+ + + + + | 12/10/ | Hospital | [facility] | Leonidas Huddleston, | Right knee pain; | | 2014 | Encounter | MED CTR MRI [address] | MD [address] | Swelling of right | | | | [address] [place], | [place], [place] | knee joint | | | | [place] [address] | [address] | | | | | [phone] | | | +--------+ + + + [...] PROTOCOL: Axial proton density fat sat, sagittal [facility] | | proton density, coronal proton [...] + | [address] | [address] | [place] | [phone] | | [facility] | | [address] | | | - IMAGING | | [...]
--- OUTSIDE RECORDS SUMMARY | ~2019-12-19 | XMS | Encounter Summary ---
Demographics + + + | Address | [address] | | | [place] [address] | + + + | Home Phone [...] Team Providers + +------+ + | Care External Grinder Tool Name | Role | Phone | + [...] | | | Rehabilitatio | neuralgia | IT GENERALIST [address] | | | | n | neck pain | [address] | [place], | | | | | follow up | [address] | [place] [address] | | | | | | [place], | Phone: | | | | | | [place] [address] | [phone] | | | | | | Phone: | Fax: | | | | | | [phone] | [phone] | | | | | | Fax: | | | | | | | [phone] | | +--------+--------+ + + + + Encounter Details +--------+---------+ + + + | Date | Type | Department | Care Team | Description | +--------+---------+ + + + | 11/13/ | Office | [facility] | Leonidas Mohr, | Chronic daily | | 2016 | Visit | PHYSIATRY [address] | MD [address] | headache (Primary | | | | [address] | [place] | Dx); Migraine | | | | [place] | [address] | without aura and | | | | [address] | | without status | | | | [phone] | | migrainosus, not | | | [...] MD - 11/14/2015 1:00 PM PDT [facility] PHYSIATRY [address] [facility] [address] OFFICE NOTE LEONIDAS MOHR JR, MD Patient: LUZ MARIA LOCKWOOD Admitting: MR #: [id number] LOC: PT TYPE: Adm Date: 11/14/2015 : 1955 PHYSICAL MEDICINE REHABILITATION PROGRESS NOTE DATE OF : 1955 PRIMARY CARE PROVIDER: Teena Busch DATE OF SERVICE: 11/14/2015. PATIENT IDENTIFICATION: The patient was last seen by nd 07/2015. At that time, it was fe [...] h er headaches are over the bilateral tenriism, bilateral forehead, and bilateral occipital reg ions. [...] 13:00:02 Transcribed on 11/15/2015 06:18:54 by job# [id number] Confirmation #: [id number] signed by Leonidas Mohr MD at 11/19/2015 12:38 PM P Harriet, Leonidas Irving MD - 11/14/2015 9:29 AM PDTThis office note has been dictated. Report Confirmation# [id number] signed by Leonidas Mohr MD at 11/14/2015 [...]
--- OUTSIDE RECORDS SUMMARY | ~2019-12-19 | XMS | Encounter Summary ---
Demographics + + + | Address | [address] | | | [place] [address] | + + + | Home Phone [...] Team Providers + +------+ + | Care Management Internship Name | Role | Phone | [...] | SLEEP DISORDER [address] | [address] | Dx) | | | | [address] [place] | [place], [place] | | | | | [place] [address] | [address] | | | | | [phone] | | | +--------+---------+ + + + [...] counseling. Sundeep Ba PA-C cc: Teena Busch, SUSTAINABILITY ANALYST-BC P STdocumented in this encounter Plan of Treatment Not on filedocumented as of this encounter Visit Diagnoses + + | Diagnosis | + + | CONSUELO on CPAP - Primary Obstructive sleep apnea (adult) (pediatric) | + + documented in this encounter
--- OUTSIDE RECORDS SUMMARY | ~2019-12-19 | XMS | Encounter Summary ---
Demographics + + + | Address | [address] | | | [place] [address] | + + + | Home Phone [...] Author | [facility] | | | and [place] | + + + | Organization | [facility] | | [...] Team Providers + +------+ + | Care Pull Tab Dealer Name | Role | Phone | [...] + | 07/13/ | Office | [facility] | Sundeep Ba PA | CONSUELO on CPAP (Primary | | 2016 | Visit | SLEEP DISORDER [address] | [address] | Dx) | | | | [address] [place] | [place] | | | | | [place] [address] | [address] | | | | | [phone] | | | +--------+---------+ + + + [...] AirSense 10 with nasal mask obtained from: [facility] in [place] pressure: 9-20 cm (lowered to 4-8 cm [...] Exam Assessment: Problem #1: OBSTRUCTIVE SLEEP APNEA ([id number]-A85.33) This is controlled with CPAP. She had [...] months, sooner prn. Fifteen minutes were spent [id number], w ith the majority of time spent in counseling. Sundeep Ba PA-C cc: Teena Busch PACE ANALYST-DARRYN documented in this enco unter Plan of Treatment Not on filedocumented as of this encounter Visit Diagnoses + + | Diagnosis | + + | CONSUELO on CPAP - Primary Obstructive sleep apnea (adult) (pediatric) | + + documented in this encounter
--- OUTSIDE RECORDS SUMMARY | ~2019-12-19 | XMS | Encounter Summary ---
Demographics + + + | Address | [address] | | | [place] [address] | + + + | Home Phone [...] Team Providers + +------+ + | Care Custodial Officer Name | Role | Phone | [...] PHYSIATRY [address] | MD [address] | | | | | [address] | [place], [place] | | | | | [place], [place] | [address] | | | | | [address] | | | | | | [phone] | | | +--------+ + + + [...]
--- OUTSIDE RECORDS SUMMARY | ~2019-12-19 | XMS | Encounter Summary ---
Demographics + + + | Address | [address] | | | [place] [address] | + + + | Home Phone [...] + + + | Author | [facility] | | | and [place] | + + + | Organization | [facility] | | | [...] Team Providers + +------+ + | Care Ironing Worker Name | Role | Phone | [...] PHYSIATRY [address] | MD [address] | neuralgia (Primary | | | | [address] | [place], [place] | Dx) | | | | [place], [place] | [address] | | | | | [address] | | | | | | [phone] | | | +--------+ + + + [...]
--- OUTSIDE RECORDS SUMMARY | ~2019-12-19 | XMS | Encounter Summary ---
Demographics + + + | Address | [address] | | | [place] [address] | + + + | Home Phone [...] Team Providers + +------+ + | Care Principal Solutions Architect Name | Role | Phone | + +------+ + PCP | Unavailable | + +------+ + Encounter Details +--------+ + + + + | Date | Type | Department | Care Team | Description | +--------+ + + + + | 06/15/ | Hospital | [facility] | Trevor Cárdenas MD | | | 2010 | Encounter | MED CTR XRAY [address] | [address] | | | | | [place] | [place] | | | | | [place] [address] | [address] | | | | | [phone] | | | +--------+ + + + [...] [facility] Diagnostic Imaging Department | [facility] | | [address] | [facility] | | E C H O C | DIAG IMG | | A R D I O G R A P H Y R E P O R T HEIGHT: 5'9" | | | WEIGHT: 240# CUTTER ALUMINUM SHEET: VERONICA REFERRING PHYSICIAN: Dr. Murray | | [...] Ever Almazan Conversion - 04/20/2013 2:37 PM [facility] | | Diagnostic Imaging Department | | [address] | | | | | | | | | | | | E C H O C A R D I O G R A P H Y R E P O R T | | | | | | HEIGHT: 5'9" WEIGHT: 240# CUTTER ALUMINUM SHEET: TD | | REFERRING PHYSICIAN: Dr. Trevor [...]
--- OUTSIDE RECORDS SUMMARY | ~2019-12-19 | XMS | Encounter Summary ---
Demographics + + + | Address | [address] | | | [place] [address] | + + + | Home Phone [...] Team Providers + +------+ + | Care Military Pay Technician Name | Role | Phone | [...] Services | Therapy | Primary | Andre L, | HOSPITAL | | | Required | | osteoarthrit | [address] | PHYSICAL | | | | | is of both | [address] | THERAPY [address] | | | | | knees | [place], | [place] | | | | | | [place] [address] | [place], [place] | | | | | | Phone: | [address] | | | | | | [phone] | Phone: | | | | | | Fax: | [phone] | | | | | | [phone] | Fax: | | | | | | | [phone] | +--------+ + + + + + [...] | | | [address] [place] | | | | | | [address] | [place] | | | | | | [place], | [address] Phone: | | | | | | [place] [address] | [phone] | | | | | | Phone: | Fax: | | | | | | [phone] | [phone] | | | | | | Fax: | | | | | | | [phone] | | +--------+--------+ + + + + Encounter Details +--------+---------+ + + + | Date | Type | Department | Care Team | Description | +--------+---------+ + + + | 09/01/ | Office | [facility] | Andre Caballero | Primary | | 2019 | Visit | ORTHOPEDIC SURGERY | MD Rojelio [address] | osteoarthritis of | | | | [address] [place] | [place] | both knees (Primary | | | | [place], [place] | [address] | Dx) | | | | [address] | | | | | | [phone] | | | +--------+---------+ + + + [...] for her to start aqua therapy through [facility] in [place], [place] where she lives. We have encouraged [...]
--- OUTSIDE RECORDS SUMMARY | ~2019-12-19 | XMS | Encounter Summary ---
Demographics + + + | Address | [address] | | | [place] [address] | + + + | Home Phone [...] Team Providers + +------+ + | Care Worker'S Compensation Claims Examiner Name | Role | Phone | [...] + | 04/05/ | Office | [facility] | Sundeep Ba PA | CONSUELO on CPAP (Primary | | 2019 | Visit | SLEEP DISORDER [address] | [address] | Dx) | | | | [address] [place] | [place] | | | | | [place] [address] | [address] | | | | | [phone] | | | +--------+---------+ + + + [...] AirSense 10 Mask type: nasal mask DME: [facility] in [place] pressure: 9-20 cm (lowered to 4-8 cm [...] Exam Assessment: Problem #1: OBSTRUCTIVE SLEEP APNEA ([id number]) This is controlled with CPAP. She improved her usage with her CPAP, but is still inconsist ent with it. Plan: 1. She is to continue with CPAP indefinitely. 2. She is to work toward wearing her CPAP 100% of the time she is asleep. I will follow up again in 2 months, sooner prn. Fifteen minutes were spent [id number], w ith the majority of time spent [...]
--- OUTSIDE RECORDS SUMMARY | ~2019-12-19 | XMS | Encounter Summary ---
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 [address] | [address] | abuse; NSTEMI | | | | [address] | [place] [address] | (non-ST elevated | | 08/31/ | | [place], [place] | [phone] | myocardial | | 2011 | | [address] | | infarction) ([facility]); | | | | [phone] | | Hyponatremia; | | | | | | Bipolar disorder, | | | | | | unspecified ([facility]); | | | | | | Hyposmolality and/or | | | | | | hyponatremia; | | | | | | Leucocytosis; | | | | | | Paranoid | | | | | | schizophrenia, | | | | | | chronic condition | | | | | | ([facility]); Seizure | | | | | | disorder ([facility]) | +--------+ + + + + Social [...] (none) Author Type: Registered Nurse Filed: 11/12/11 7600 Date of Service: 11/12/11 130 Status: Signed Celery Stripper: Marli Mejia RN (Registered Nurse) Pt provided [...] Summaries by Rhoda Simpson MD at 11/12/11 4107 Author: Rhoda Simpson MD Service: (none) Author Type: Physician Filed: 11/18/11 0927 Date of Service: 11/12/11 7145 Status: Signed Celery Stripper: Rhoda Simpson MD (Physician) [facility] Service: Hospitalist Discharge Summary Date [...] methamphetami ne use, who was transferred from [facility] after having a seizure. Please refer t o complete H&P by Dr Singleton for further details. 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 Patient reportedly had sei zures and palpitations [...] >60 11/12/2011 PLAN D/C to prison. Disposition: jail Condition: Stable Code Status: Full [...] 11/12/111341 Date of Service: 11/12/111339 Status: Signed Celery Stripper: Marli Mejia RN (Registered Nurse) Security brought pt belongings up to pt. jail called and they have her set of keys. P t notified. oster , BERNARD Lorenzana - 11/12/2011 1:01 PM PDT Progress Notes by BERNARD Hugo at 11/12/11 1301 Author: BERNARD Hugo Service: (none) Author Type: Therapist Filed: 11/12/11 1303 Date of Service: 11/12/11 130 Status: Signed Celery Stripper: BERNARD Hugo (Therapist) Patient reports she lives in a prison, has [place] medicaid for transportation. Pt disc harging back to prison this afternoon. CM called [facility] transportation to [facility], provided pt room # address and this CM's contact number. [facility] [employer] stated they would send transport as soon as they could find someone. CM alerted RN of dcp approxim ate time. No other anticipated dc needs at this time. onversion Transact ion, Provider Unknown - 11/12/2011 9:57 AM PDTFormatting of this note might be different fr om the original. Progress Notes by Melissa Estrella at 11/12/11956 Author: Melissa Estrella Service: (none) Author Type: Flooring Installer Filed: 11/12/1159 Date of Service: 11/12/11956 Status: Signed Celery Stripper: Melissa Estrella (Flooring Installer) Pt didn't remember requesting a visit. Wanted prayer for her health. Shared she has difficu lty forgiving herself. Wants additional cooperative extension agent visits while she is in the hospital. [place]ver [place] Transaction, Provider Unknown - 11/11/2011 4:26 AM PDT Progress Notes by Gelacio Bhandari RPH at 11/11/11425 Author: Gelacio Bhandari RPH Service: (none) Author Type: Pharmacist Filed: 11/11/11425 Date of Service: 11/11/11425 Status: Signed Celery Stripper: Gelacio Bhandari RPH (Pharmacist) Note ccl 115ml/min meds reviewed Pharmacy will follow rdc 0426 docume nted in this encounter H&P Notes Jaxon Singleton MD - 11/11/2011 3:53 AM PDTFormatting of this note might be different from th e original. H&P by Jaxon Singleton MD at 11/11/11352 Author: Jaxon Singleton MD Service: (none) Author Type: Physician Filed: 11/11/11400 Date of Service: 11/11/11352 Status: Signed Celery Stripper: Jaxon Singleton MD (Physician) Related Notes: Original Note by Jaxon Singleton MD (Physician) filed at 11/11/11400 [facility] Service: Hospitalist Admission History & Physical [...] chronic methamphetamine use, who was transferred from [facility] after having a seizure. The patient reportedly, at 12 p.m. today, did methamphetamine with her friend and after that EMS was called because the patient was found to be having seizures. It is unclear if the patient actually had a real seizure, but she was given Ativan and was transferred to [facility]. There, at least per the records from [facility], she was witnessed to have a [...] 0.1 and the patient was transferred to [facility] for hyponatremia and for positive troponin [...] takes lamotrigine for that and follows at [facility] from [place], follows her for psychiatric disorders, and she [...] father at the age of 55, an [place]. CURRENT MEDICATIONS Medications that the patient remembers [...] 11/12/11909 Date of Service: 11/12/11908 Status: Signed Celery Stripper: ANDRIY Suazo (Advanced Registered Nurse Practitioner) Procedures: 1. NM CARDIOVASCULAR STRESS TEST [[id number] (Custom)] [facility] Service: Diagnostic Imaging/Nuclear Medicine Cardiac Stress [...] 11/11/11327 Date of Service: 11/11/11327 Status: Signed Celery Stripper: Francisco Tejada RN (Registered Nurse) Dr Singleton at bedside with pt. Francisco Tejada RN 11/11/11327 [place]ver [place] Transaction, Provider Unknown - 11/11/2011 3:28 AM PDT ED Notes by Jesse Melendez RN at 11/11/11327 Author: Jesse Melendez RN Service: (none) Author Type: Registered Nurse Filed: 11/11/11327 Date of Service: 11/11/11327 Status: Signed Celery Stripper: Jesse Melendez RN (Registered Nurse) Hospitalist at bedside. Report to Francisco NOVA. Jesse Melendez RN 11/11/11327 [place]ver [place] Transaction, Provider Unknown - 11/11/2011 2:45 AM PDT ED Notes by Jesse Melendez RN at 11/11/11244 Author: Jesse Melendez RN Service: (none) Author Type: Registered Nurse Filed: 11/11/11244 Date of Service: 11/11/11244 Status: Signed Celery Stripper: Jesse Melendez RN (Registered Nurse) Dr. Collins at bedside. Jesse Melendez RN 11/11/11244 [place]ver [place] Transaction, Provider Unknown - 11/11/2011 1:37 AM PDT ED Notes by Francisco Tejada RN at 11/11/11136 Author: Francisco Tejada RN Service: (none) Author Type: Registered Nurse Filed: 11/11/11137 Date of Service: 11/11/11136 Status: Signed Celery Stripper: Francisco Tejada RN (Registered Nurse) Pt states symptoms started yesterday "when I did some bad meth" Francisco Tejada RN 11/11/11137 [place]ver [place] Transaction, Provider Unknown - 11/11/2011 1:36 AM PDT ED Notes by Francisco Tejada RN at 11/11/11135 Author: Francisco Tejada RN Service: (none) Author Type: Registered Nurse Filed: 11/11/11135 Date of Service: 11/11/11135 Status: Signed Celery Stripper: Francisco Tejada RN (Registered Nurse) Patient placed on telemetry, with Sa02 and routine NIBP monitoring. Telemetry floor notifie d via telephone. Francisco Tejada RN 11/11/11135 [place]ver [place] Transaction, Provider Unknown - 11/11/2011 1:35 AM PDT ED Notes by Francisco Tejada RN at 11/11/11134 Author: Francisco Tejada RN Service: (none) Author Type: Registered Nurse Filed: 11/11/11134 Date of Service: 11/11/11134 Status: Signed Celery Stripper: Francisco Tejada RN (Registered Nurse) Dr Collins at bedside with pt. Francisco Tejada RN 11/11/11134 [place]ver [place] Transaction, Provider Unknown - 11/11/2011 1:35 AM PDT ED Notes by Francisco Tejada RN at 11/11/11134 Author: Francisco Tejada RN Service: (none) Author Type: Registered Nurse Filed: 11/11/11134 Date of Service: 11/11/11134 Status: Signed Celery Stripper: Francisco Tejada RN (Registered Nurse) BC x2 collected at [facility] ED in [place]. Francisco Tejada RN 11/11/11134 ranfrancisco wells, Dar Yun MD - 11/11/2011 1:32 AM PDT ED Provider Notes by Dar Collins MD at 11/11/11131 Author: Dar Collins MD Service: (none) Author Type: Physician Filed: 11/11/11 0437 Date of Service: 11/11/11 0132 Status: Signed Celery Stripper: Dar Collins MD (Physician) [facility] Department of Emergency Medicine Pertinent History [...] Patient presented to the Emergency Department by: [place] [facility] Chief Complaint Chief Complaint Patient presents with Altered Mental Status Pt seen at [facility] ED for Tremors, hypokalemia, elevated troponin, and [...] The pt was seen at [facility] in [facility] for convulsions. The pt was transported to [facility] by ambulance and diagnosed with p aranoid [...] sore throat CV/Resp: Negative for chest pain, hfwdfcikr-me-oeovkc, cough Positive for tachycardia GI: Negative for [...] possible lab error, and non ST elevation [place]. I will order tests to rule out [...] elevation. Records Reviewed Nursing notes. No previous [facility] ED visits for review in [facility]. The pt has had back surgery x3 and a cholecystectomy. Laboratory Evaluation Results Procedure Component Value Ref Range Date/Time [facility] ([facility] Only) [[id number]] (Abnormal) Collected:11/11/11143 Order Status:Completed Updated:11/11/11221 WBC 17.0 [...] from 2:42: Sinus tachycardia at 101 bpm. [place], QRS, QT, and axis are normal. No [...] 11/11/11128 Date of Service: 11/11/11128 Status: Signed Celery Stripper: Eli To RN (Registered Nurse) Bed:13
Expected date:
Expected time:
Means of arrival:
Comments:
[facility]'s transfer [place]ver [place] Transaction, Provider Unknown - 11/11/2011 12:38 AM PDT ED Notes by Eli To RN at 11/11/1137 Author: Eli To RN Service: (none) Author Type: Registered Nurse Filed: 11/11/1142 Date of Service: 11/11/1137 Status: Signed Celery Stripper: Eli To RN (Registered Nurse) Report from Heather at [facility]. Pt in a prison. Did meth yesterday. EMS called fo r [...] + + + | LUZ MARIA LOCKWOOD MD MYOCARDIAL PERFUSION SPECT - STRESS AND REST [...] Tha, Rad Conversion - 11/04/2018 6:12 AM [facility] LUZ MARIA JETT MYOCARDIAL | | PERFUSION [...] + | This procedure was resulted in [place] (the cardiology system). Please | | | see the Media tab in Chart Review to see the result for this | | | procedure. | | + + + + + | Procedure Note | + + | Ever Almazan Conversion - 11/04/2018 6:12 AM PDT This procedure was resulted in [place] | | (the cardiology system). Please seethe [...] + + | Bipolar disorder, unspecified ([facility]) Bipolar disorder, unspecified | + + | Hyposmolality and/or hyponatremia | + + | Leucocytosis Leukocytosis, unspecified | + + | Paranoid schizophrenia, chronic condition (HCC) Paranoid schizophrenia, chronic | | condition | + + | Seizure disorder (HCC) Unspecified epilepsy without mention of intractable epilepsy | + + documented in this encounter
--- OUTSIDE RECORDS SUMMARY | ~2019-12-19 | XMS | Encounter Summary ---
Demographics + + + | Address | [address] | | | [place] [address] | + + + | Home Phone [...] Team Providers + +------+ + | Care Account Coordinator Name | Role | Phone | [...] [place] | | | | | | [address] | | | | | | [phone] | | | +--------+ + + + [...]
--- OUTSIDE RECORDS SUMMARY | ~2019-12-19 | XMS | Encounter Summary ---
Demographics + + + | Address | [address] | | | [place] [address] | + + + | Home Phone [...] Organization | [facility] | | | and [...] Providers + +------+ + | Care Hospital Superintendent Name | Role | Phone | [...] + | 04/14/ | Office | [facility] | Sundeep Ba PA | CONSUELO on CPAP (Primary | | 2016 | Visit | SLEEP DISORDER [address] | [address] | Dx) | | | | [address] [place] | [place] | | | | | [place] [address] | [address] | | | | | [phone] | | | +--------+---------+ + + + [...] AirSense 10 with nasal mask obtained from: [employer] in [place] pressure: 9-20 cm (lowered to 4-8 cm [...] Exam Assessment: Problem #1: OBSTRUCTIVE SLEEP APNEA (YUJ68-H99.33) This is controlled with CPAP. She has [...]
--- OUTSIDE RECORDS SUMMARY | ~2019-12-19 | XMS | Encounter Summary ---
Demographics + + + | Address | [address] | | | [place] [address] | + + + | Home Phone [...] Providers + +------+ + | Care Customer Care Associate Name | Role | Phone | [...] | | | | | [address] | | | | | | [place], [place] | | | | | | [address] | | | | | | [phone] | | | +--------+ + + + [...]
--- OUTSIDE RECORDS SUMMARY | ~2019-12-19 | XMS | Encounter Summary ---
Demographics + + + | Address | [address] | | | [place] [address] | + + + | Home Phone [...] Providers + +------+ + | Care Head Sulfide Operator Name | Role | Phone | [...] PHYSIATRY [address] | MD [address] | | | | | [address] | [place], [place] | | | | | [place], [place] | [address] | | | | | [address] | | | | | | [phone] | | | +--------+ + + + [...] authorized 08/23. Fax number for them is [phone]. document ed in this encounter Plan of Treatment Not on filedocumented as of this encounter Visit Diagnoses Not on filedocumented in this encounter"
--- OUTSIDE RECORDS SUMMARY | ~2019-12-19 | XMS | Encounter Summary ---
Demographics + + + | Address | [address] | | | [place] [address] | + + + | Home Phone [...] Team Providers + +------+ + | Care Boilermaker Central Steam Plant Name | Role | Phone | + [...] | SLEEP DISORDER [address] | [address] | | | | | [address] [place] | [place] | | | | | [place] [address] | [address] | | | | | [phone] | | | +--------+ + + + [...]
--- OUTSIDE RECORDS SUMMARY | ~2019-12-19 | XMS | Encounter Summary ---
Demographics + + + | Address | [address] | | | [place] [address] | + + + | Home Phone [...] Team Providers + +------+ + | Care Horticultural Manager Name | Role | Phone | [...] + | 01/31/ | Office | [facility] | uSndeep Ba PA | CONSUELO on CPAP (Primary | | 2018 | Visit | SLEEP DISORDER [address] | [address] | Dx) | | | | [address] [place] | [place] | | | | | [place] [address] | [address] | | | | | [phone] | | | +--------+---------+ + + + [...] AirSense 10 with nasal mask obtained from: [email or web address] in [place] pressure: 9-20 cm (lowered to 4-8 cm [...] not contact our office or In Home [facility] in [place]. She thinks her power cord may have [...] Exam Assessment: Problem #1: OBSTRUCTIVE SLEEP APNEA (UWE34-F63.33) This is controlled with CPAP. She improved her usage with her CPAP, but is still inconsist ent with it. Plan: 1. She is to continue with CPAP indefinitely. 2. She is to work toward wearing her CPAP 100% of the time she is asleep. I will follow up again in 2 months, sooner prn. Fifteen minutes were spent bgqr-ry-iwsk, w ith the majority of time spent [...]
--- OUTSIDE RECORDS SUMMARY | ~2019-12-19 | XMS | Encounter Summary ---
Demographics + + + | Address | [address] | | | [place] [address] | + + + | Home Phone [...] Team Providers + +------+ + | Care County Coroner Name | Role | Phone | + [...] | Sensorineura | [address] | [place] | | | | | l hearing | [address] | [place], | | | | | loss, | [place], | [place] [address] | | | | | bilateral | [place] [address] | Phone: | | | | | Benign | Phone: | [phone] | | | | | paroxysmal | [phone] | Fax: | | | | | positional | Fax: | [phone] | | | | | vertigo | [phone] | | | | | | 386.11 [...] [place] | unspecified | | | | [place], [place] | [address] | laterality (Primary | | | | [address] | | Dx); Sensorineural | | | | [phone] | | hearing loss, | | | [...]
--- OUTSIDE RECORDS SUMMARY | ~2019-12-19 | XMS | Encounter Summary ---
Demographics + + + | Address | [address] | | | [place] [address] | + + + | Home Phone [...] Providers + +------+ + | Care Manager Monitoring Name | Role | Phone | + [...] | | | | | Snoring | [address] | [address] | | | | | Apnea | [place], | [place], | | | | | | [place] [address] | [place] [address] | | | | | | Phone: | Phone: | | | | | | [phone] | [phone] | | | | | | Fax: | Fax: | | | | | | [phone] | [phone] | +--------+ + + + + + [...] | | | | | cervical | [address] | | | | | | region | [place], | | | | | | Cervical | [place] [address] | | | | | | spondylosis | Phone: | | | | | | Cervicalgia | [phone] | | | | | | Status | Fax: | | | | | | post | [phone] | | | | | | cervical [...] Rehabilitatio | | MD Erasmo | [address] | | | | n | | [address] | [place], | | | | | | [place] | [place] [address] | | | | | | [place] | Phone: | | | | | | [address] | [phone] | | | | | | Phone: | Fax: | | | | | | [phone] | [phone] | | | | | | Fax: | | | | | | | [phone] | | +--------+--------+ + + + + Encounter Details +--------+---------+ + + + | Date | Type | Department | Care Team | Description | +--------+---------+ + + + | 08/21/ | Office | [facility] | Leonidas Mohr, | Cervicalgia (Primary | | 2014 | Visit | PHYSIATRY [address] | [address] | Dx); Cervical | | | | [address] | [place] | spondylosis; | | | | [place] | [address] | Cervical spinal | | | | [address] | | stenosis; Status | | | | [phone] | | post cervical spinal | | [...] physical therapy within one week, please contact [facility]. Once you have completed physical therapy please [...] MD - 08/21/2014 5:21 PM PDT [facility] PHYSIATRY [address] [facility] [address] OFFICE NOTE LEONIDAS MOHR JR, MD Patient: LUZ MARIA LOCKWOOD Admitting: MR #: [id number] LOC: PT TYPE: Adm Date: 08/21/2014 : [...] triceps, wrist dorsiflexion, finger abduction and hand public relations intern; 4+/5 hip flexion, knee flexion, knee extension, [...] 17:21:09 Transcribed on 08/22/2014 01:15:33 by job# [id number] Confirmation #: [id number] cc: WICHO STARKEY MD Leonidas Mohr MD - 08/21/2014 1:53 PM PDTThis office note has been dictated. Job ID# [id number] signed by Leonidas Mohr MD at 08/21/2014 [...]
--- OUTSIDE RECORDS SUMMARY | ~2019-12-19 | XMS | Encounter Summary ---
Demographics + + + | Address | [address] | | | [place] [address] | + + + | Home Phone [...] Team Providers + +------+ + | Care Cupola Melter Name | Role | Phone | + +------+ + | Abimael Devlin MD | PCP | | + +------+ + Encounter Details +--------+ + + + + | Date | Type | Department | Care Team | Description | +--------+ + + + + | 06/07/ | Hospital | [facility] | Andre Caballero | Chronic pain of both | | 2019 | Encounter | MED CTR YAZMIN Serrato MD [address] | knees | | | | [address] [place] | [place], [place] | | | | | [place], [place] | [address] | | | | | [address] | | | | | | [phone] | | | +--------+ + + + [...]
--- OUTSIDE RECORDS SUMMARY | ~2019-12-19 | XMS | Encounter Summary ---
Demographics + + + | Address | [address] | | | [place] [address] | + + + | Home Phone | | + + + | Preferred Language | Unknown | + + + | Marital Status | | + + + | Rastafari Affiliation | 1013 | + + + [...] Providers + +------+ + | Care Hand Sewer Name | Role | Phone | [...] 2017 | | GASTROENTEROLOGY | [address] [place] | screen ) | | | | [address] [place] | [address] [place], [place] | | | | | [address] [place], [place] | [address] | | | | | [address] | | | | | | [phone] | | | +--------+ + + + [...] bowel prep; rx t o [facility] [place]; info mailed to pt; completed case request [...]
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
--- OUTSIDE RECORDS SUMMARY | ~2019-12-19 | XMS | Encounter Summary ---
Demographics + + + | Address | [address] | | | [place] [address] | + + + | Home Phone [...] Team Providers + +------+ + | Care Bell Valet Name | Role | Phone | + [...] | | | | | positional | [address] | Hearing Aid | | | | | vertigo | [place], | Services [address] | | | | | Procedures | [place] [address] | [address] | | | | | 10/25 PEND | Phone: | [address] | | | | | [place] | [phone] | [place], | | | | | | Fax: | [place] [address] | | | | | | [phone] | Phone: | | | | | | | [phone] | | | | | | | Fax: | | | | | | | [phone] | +--------+ + + + + + Encounter Details +--------+---------+ + + + | Date | Type | Department | Care Team | Description | +--------+---------+ + + + | 11/27/ | [facility] | [facility] | Leonidas Huddleston, | Dizziness and | | 2015 | Visit | AUDIOLOGY AND | MD [address] | giddiness (Primary | | | | [facility] | [place], [place] | Dx) | | | | [address] | [address] | | | | | [address] [facility] | | | | | | [place] [address] | Ganesh, Nigle, [place] | | | | | [phone] | CCC-A [address] | | | | | | [address] [place] | | | | | | [place] [address] | | | | | | [phone] | | | | | | | [...]
--- OUTSIDE RECORDS SUMMARY | ~2019-12-19 | XMS | Encounter Summary ---
Demographics + + + | Address | [address] | | | [place] [address] | + + + | Home Phone [...] Team Providers + +------+ + | Care Call Center Operator Name | Role | Phone | [...] | | | | [place] | [address] | | | | | [address] | | | | | | [phone] | | | +--------+ + + + [...] AM PSTPatient was seen on 03/15. elephone [facility] - Mary Silva - 03/10/2018 8:36 AM PSTLMVM for patient to call back, please renae edule patient for a follow up with Dr Ojeda. elephone Encounter - Abby Vaughan, Balance Clerk - 03/09/20 2:51 PM PSTPlease schedule patient for a follow up. Thank you elephone Encounter - Ruth Palomo - 03/09/2018 11:35 AM PSTPATIENT CALLED AND WANTED TO KNOW IF YOU RECEIVED HER FORM ALICJA T SHE INCLUDED IN A hereO CARD TO DR. OJEDA. SHOT LASTED ABOUT 2 DAYS AND WAS SENT TO DR. Balderrama AND SHOT FROM DR. Balderrama DID NOT HELP EITHER. PLEASE CALL AND ADVISE [phone] onically signed by Sylvia Palomo at 03/09/2018 11:37 AM PSTdocumented in this encounter Plan of Treatment Not on filedocumented as of this encounter Visit Diagnoses Not on filedocumented in this encounter"
--- OUTSIDE RECORDS SUMMARY | ~2019-12-19 | XMS | Encounter Summary ---
Demographics + + + | Address | [address] | | | [place] [address] | + + + | Home Phone [...] | Author | [facility] | | | and [place] | + + + | Organization | [facility] | | | [...] Team Providers + +------+ + | Care Mixed Crop And Livestock Farm Worker Name | Role | Phone | [...] Right hip | Lisa, | [address] | | | | | pain | Paco T, MD | [place], | | | | | Procedures | [address] | [place] | | | | | [place] Asp | [place] | [address] | | | | | and/or Inj | [place], [place] | Phone: | | | | | Major Joint | [address] | [phone] | | | | | Right CHG | Phone: | Fax: | | | | | FLUOROSCOPIC | [phone] | [phone] | | | | | GUIDANCE | Fax: | | | | | | NEEDLE | [phone] | | | | | | PLACEMENT | | | | | | | ADD ON [place] | | | | | | [...] | | | [place], [place] | [address] | | | | | [address] | | | | | | [phone] | | | +--------+ + + + [...]
--- OUTSIDE RECORDS SUMMARY | ~2019-12-19 | XMS | Encounter Summary ---
Demographics + + + | Address | [address] | | | [place] [address] | + + + | Home Phone [...] | Author | [facility] | | | and [place] | + + + | Organization | [facility] | | | [...] Team Providers + +------+ + | Care Camp Boss Name | Role | Phone | + [...] [place] | | | | | | [place] [address] | [place], [place] | | | | | | Phone: | [address] | | | | | | [phone] | Phone: | | | | | | Fax: | [phone] | | | | | | [phone] | Fax: | | | | | | | [phone] | +--------+ + + + + + [...] | | | [address] | [place] | | | | | | [place], | [address] Phone: | | | | | | [place] [address] | [phone] | | | | | | Phone: | Fax: | | | | | | [phone] | [phone] | | | | | | Fax: | | | | | | | [phone] | | +--------+--------+ + + + + [...] | | | | [place], [place] | [address] | Dx) | | | | [address] | | | | | | [phone] | | | +--------+---------+ + + + [...] for her to start aqua therapy through [facility] in [place], [place] where she lives. We have encouraged [...]
--- OUTSIDE RECORDS SUMMARY | ~2019-12-19 | XMS | Encounter Summary ---
Demographics + + + | Address | [address] | | | [place] [address] | + + + | Home Phone [...] + + + | Author | [facility] | | | and [place] | + + + | Organization | [facility] | | | [...] Team Providers + +------+ + | Care E D Tech Name | Role | Phone | [...] Provider Unknown | | | | | [place], [place] | [phone] | | | | | [address] | | | | | | | [...]
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
[~2019-12-19 12:53] MED LIST changes: -SODIUM CHLORIDE1 GM PO
--- OUTSIDE RECORDS SUMMARY | 2019-12-19 12:56 | XMS ---
PreManage Notification: TIM LOCKWOOD Security Noise Tester Events No recent Security Events currently on file CRITERIA MET - [facility] - Has Care Guidelines CARE PROVIDERS SANJEEV BREAUX [facility] 05/23/2018-Current PHONE: [phone] Guidelines Source: [facility] Guidelines Date: 06/29/2018 Care Coordination: Currently engaged in mental health services with [facility].\T\nbsp; Please contact [facility] with mental health concerns.\T\nbsp; Axel/Chandan Caruso: \T\nbsp; [phone]\T\nbsp; \T\nbsp; [place]: [phone]. Care History Medical/Surgical 06/14/2018 [facility] CASE MANAGEMENT REFERRAL MADE- PATIENT HAS E[facility]CCO AND NO PCP. [facility].D[facility] ([address] [facility] NOTE: Visits indicate total known visits. ED/UCC VISIT TRACKING (12 MO.) 12/19/2019 12:[address] [facility] [place] TYPE: Emergency COMPLAINT: - DIZZINESS 10/03/2019 10:[address] 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 Bonita [place] TYPE: Emergency DIAGNOSES: - Headache - Headache (Adult - New Onset Or New Symptoms) - pain in head 01/30/2019 20:49 [facility] [place] TYPE: Emergency COMPLAINT: - SWORE THROAT/ABDOMINAL CRAMPS INPATIENT VISIT TRACKING (12 MO.) 02/07/2019 06:38 [facility] [place] TYPE: Surgery COMPLAINT: - OPEN PERIUMBILICAL INCISIONAL HERNIA REPAIR W/MESH DIAGNOSES: - Incisional hernia without obstruction or gangrene 01/31/2019 05:29 [facility] [place] TYPE: Medical Surgical COMPLAINT: - ABDOMINAL PAIN/UMBILICAL HERNIA DIAGNOSES: - Allergy status to narcotic agent status - senior living (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 of oral 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 drugs - Syndrome of inappropriate secretion of antidiuretic hormone - Schizoaffective disorder, unspecified - Cervicalgia - Fibromyalgia - Body mass index (BMI) 38.0-38.9, adult - Other marketing co op (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 - 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
[2019-12-19] MEDS ORDERED: FUROSEMIDE20 MG PO (17:57)
[2019-12-19] MEDS ORDERED: ALBUTEROL2.5 MG/3 M INH (17:58)
[2019-12-19] MEDS ORDERED: VENTOLIN HFA18 GM INH (18:00)
[2019-12-19] MEDS ORDERED: CYCLOBENZAPRINE10 MG PO (18:02)
[2019-12-19] MEDS ORDERED: CARBAMAZEPINE200 MG PO (18:07)
[2019-12-19] MEDS ORDERED: CARBAMAZEPINE200 M2 PO (18:09)
[2019-12-19] MEDS ORDERED: SODIUM CHLORIDE1 GM PO (18:21)
[2019-12-19] MEDS ORDERED: DICYCLOMINE HCL10 MG PO (18:32)
--- NOTE | 2019-12-20 09:17 | EKG ---
[facility] [address] [place], [place] [address] Signed Normal sinus rhythm Normal ECG When compared with ECG of 31-JAN-2019 06:18, No significant change was found Confirmed by OMER CEBALLOS MD ([id number]) on 12/20/2019 9:16:43 AM Electronically Signed By: OMER CEBALLOS MD 12/20/19 0917 PATIENT NAME: JOSESITO LOCKWOODORACarmen ADHIKARI Electrocardiogram DATE OF : 53 PHYSICIAN: OMER CEBALLOS MD REPORT #: [id number] REPORT IS CONFIDENTIAL AND NOT TO BE RELEASED WITHOUT AUTHORIZATION
[2019-12-21] MEDS ORDERED: PREDNISONE20 MG PO (11:05)
== END 2019-12-21 12:15 | disposition home or self-care (01) ==
LOC: ED 12:53 → MS 12:55
PROVIDERS: ADMIT Internal Medicine; ATTEND Internal Medicine
DX: J44.0 Chronic obstructive pulmonary disease with (acute) lower respiratory infection (principal); J20.9 Acute bronchitis, unspecified; R55 Syncope and collapse; E87.1 Hypo-osmolality and hyponatremia; E86.0 Dehydration; E83.42 Hypomagnesemia; E83.52 Hypercalcemia; I10 Essential (primary) hypertension; E11.9 Type 2 diabetes mellitus without complications; I25.2 Old myocardial infarction; K21.9 Gastro-esophageal reflux disease without esophagitis; F25.0 Schizoaffective disorder, bipolar type; Z20.828 Contact with and (suspected) exposure to other viral communicable diseases; Z87.891 Personal history of nicotine dependence; Z88.8 Allergy status to other drugs, medicaments and biological substances; Z88.5 Allergy status to narcotic agent; Z79.899 Other long term (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; Z79.84 Long term (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 of oral 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 drugs
CPT/HCPCS: 36415; 71045; 80048; 80053; 80156; 81001; 83735; 84484; 85025; 93005; 93010; 94640; 94667; 94668; 94760; 96366; 96372; 96374; 96375; 99285-25; 99406; C9803; G0378; J1100; J1650; J1885; J3475; J7030; J7131; J7512; U0003

== ENCOUNTER 2020-01-07 14:54 | Emergency (ER) | payer MEDICARE, OTHER ==
[~2020-01-07] VITALS: Ht 175.3 cm; Wt 123.9 kg
[~2020-01-07 14:54] MED LIST changes: +ALBUTEROL2.5 MG/3 M INH; +CARBAMAZEPINE200 M2 PO; +CARBAMAZEPINE200 MG PO; +CYCLOBENZAPRINE10 MG PO; +FUROSEMIDE20 MG PO; +SODIUM CHLORIDE1 GM PO
--- OUTSIDE RECORDS SUMMARY | 2020-01-07 14:56 | XMS ---
PreManage Notification: TIM LOCKWOOD Security Wiping Rag Washer Events No recent Security Events currently on file CRITERIA MET - [facility] - 2 Visits in 30 Days CARE PROVIDERS SANJEEV BREAUX [facility] 05/23/2018-Current PHONE: [phone] Care Guidelines exist for the following facilities: [facility] ( 06/29/2018 ) [place] V[facility] (12 MO.) [address] T[facility] 6 NOTE: Visits indicate total known visits. ED/UCC VISIT TRACKING (12 MO.) 01/07/2020 14:55 [facility] TYPE: Emergency COMPLAINT: - WEAKNESS, ALTERED LOC 12/19/2019 12:54 [facility] [place] TYPE: Emergency COMPLAINT: - DIZZINESS 10/03/2019 10:[address] [facility] [place] TYPE: Emergency DIAGNOSES: - head pain, pressure, dizzy - Headache (Adult - Recurrent Or Known Dx Migraines) - Headache 09/17/2019 19:30 [facility] [place] TYPE: Emergency COMPLAINT: - DIZZINESS DIAGNOSES: - Dizziness and giddiness - Essential (primary) hypertension - Allergy status to narcotic agent status - Major depressive disorder, single episode, unspecified - Type 2 diabetes mellitus without complications - long term care social worker (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 of oral 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 drugs - Headache - Other long term care social worker (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 - Allergy status to other drugs, medicaments and biological sub - Hypo-osmolality and hyponatremia - Nicotine dependence, unspecified, uncomplicated 09/14/2019 21:35 [facility] [place] TYPE: Emergency DIAGNOSES: - Headache - Headache (Adult - New Onset Or New Symptoms) - pain in head 01/30/2019 20:49 [facility] TYPE: Emergency COMPLAINT: - SWORE THROAT/ABDOMINAL CRAMPS INPATIENT VISIT TRACKING (12 MO.) 12/19/2019 12:55 [facility] [place] TYPE: Observation COMPLAINT: - BRONCHITIS/HYPONATREMIA DIAGNOSES: - Hypo-osmolality and hyponatremia - Contact with and (suspected) exposure to other viral communic - Syncope and collapse - Gastro-esophageal reflux disease without esophagitis - Hypomagnesemia - Hypercalcemia - Type 2 diabetes mellitus without complications - Other long term care social worker (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 - Schizoaffective disorder, bipolar type - Old myocardial infarction - Essential (primary) hypertension - Allergy status to narcotic agent status - long term care social worker (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 of oral 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 drugs - Dehydration - Chronic obstructive pulmonary disease with acute lower respir - Personal history of nicotine dependence - Allergy status to other drugs, medicaments and biological sub - Cough - Acute bronchitis, unspecified 02/07/2019 06:38 [facility] [place] TYPE: Surgery COMPLAINT: - OPEN PERIUMBILICAL INCISIONAL HERNIA REPAIR W/MESH DIAGNOSES: - Incisional hernia without obstruction or gangrene 01/31/2019 05:[address] [facility] [place] TYPE: Medical Surgical COMPLAINT: - ABDOMINAL PAIN/UMBILICAL HERNIA DIAGNOSES: - Allergy status to narcotic agent status - senior care (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 of oral 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 drugs - Syndrome of inappropriate secretion of antidiuretic hormone - Schizoaffective disorder, unspecified - Cervicalgia - Fibromyalgia - Body mass index (BMI) 38.0-38.9, adult - Other mcc (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 - senior care (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 of opiate analgesic - Other chronic pain - Encounter for immunization - Obesity, unspecified - Incisional hernia without obstruction or gangrene - Allergy status to other antibiotic agents status - Generalized abdominal pain - Migraine, unspecified, not intractable, without status migrainosus - Essential (primary) hypertension - Streptococcal pharyngitis - Hypomagnesemia - Type 2 diabetes mellitus without complications - Allergy status to other drugs, medicaments and biological sub [email or web address]
[2020-01-07] MEDS ORDERED: MECLIZINE HCL25 MG PO (18:05)
--- NOTE | 2020-01-08 06:41 | EKG ---
[facility] [address] [place], [place] [address] Signed Normal sinus rhythm Normal ECG When compared with ECG of 19-DEC-2019 14:42, No significant change was found Confirmed by ROBERTO BRADLEY MD ([id number]) on 01/08/2020 6:41:17 AM Electronically Signed By: ROBERTO BRADLEY MD 01/08/20 0641 PATIENT NAME: JOSESITO LOCKWOODORACarmen ADHIKARI Electrocardiogram DATE OF : 53 PHYSICIAN: ROBERTO BRADLEY MD REPORT #: [id number] REPORT IS CONFIDENTIAL AND NOT TO BE RELEASED WITHOUT AUTHORIZATION
== END 2020-01-07 18:17 | disposition home or self-care (01) ==
LOC: ED 14:54
DX: R42 Dizziness and giddiness (principal); I10 Essential (primary) hypertension; E11.9 Type 2 diabetes mellitus without complications; F32.9 Major depressive disorder, single episode, unspecified; F43.10 Post-traumatic stress disorder, unspecified; Z87.891 Personal history of nicotine dependence; Z88.8 Allergy status to other drugs, medicaments and biological substances; Z88.5 Allergy status to narcotic agent; Z79.899 Other long term (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; Z79.52 Long term (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
CPT/HCPCS: 70450; 71045; 80053; 81001; 84484; 85025; 93005; 93010; 99284-25; G0480

== ENCOUNTER 2020-01-08 05:57 | Emergency (ER) | payer MEDICARE, OTHER ==
[~2020-01-08] VITALS: Ht 175.3 cm; Wt 123.8 kg
[~2020-01-08 05:57] MED LIST changes: +MECLIZINE HCL25 MG PO
--- OUTSIDE RECORDS SUMMARY | 2020-01-08 06:00 | XMS ---
PreManage Notification: TIM LOCKWOOD Security Ground Crewman Mission Support Events No recent Security Events currently on file CRITERIA MET - 6 ED Visits in 6 Months - [facility] - 2 Visits in 30 Days CARE PROVIDERS SANJEEV BREAUX [facility] 05/23/2018-Current PHONE: [phone] Care Guidelines exist for the following facilities: [facility] ( 06/29/2018 ) [place] VISIT COUNT (12 MO.) [address] TOTAL 7 NOTE: Visits indicate total known visits. ED/UCC VISIT TRACKING (12 MO.) 01/08/2020 05:58 [facility] [place] TYPE: Emergency COMPLAINT: - HEAD PAIN 01/07/2020 14:55 [facility] [place] TYPE: Emergency COMPLAINT: - WEAKNESS, ALTERED LOC 12/19/2019 12:54 [facility] [place] TYPE: Emergency COMPLAINT: - DIZZINESS [facility]2019 [facility] DIAGNOSES: - head pain, pressure, dizzy - Headache (Adult - Recurrent Or Known Dx Migraines) - Headache 09/17/2019 19:30 [facility] TYPE: Emergency COMPLAINT: - DIZZINESS DIAGNOSES: - Dizziness and giddiness - Essential (primary) hypertension - Allergy status to narcotic agent status - Major depressive disorder, single episode, unspecified - Type 2 diabetes mellitus without complications - rodent exterminator (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 of oral 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 drugs - Headache - Other shelter (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 - Allergy status to other drugs, medicaments and biological substances status - Hypo-osmolality and hyponatremia - Nicotine dependence, unspecified, uncomplicated 09/14/2019 21:35 [facility] DIAGNOSES: - Headache - [...] 2 diabetes mellitus without complications - Other superintendent terminal (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 - Schizoaffective disorder, bipolar type - Old myocardial infarction - Essential (primary) hypertension - Allergy status to narcotic agent status - penitentiary (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 of oral 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 drugs - Dehydration - Chronic obstructive pulmonary disease with acute lower respir - Personal history of nicotine dependence - Allergy status to other drugs, medicaments and biological substances status - Cough - Acute bronchitis, unspecified 02/07/2019 06:38 [facility] [place] TYPE: Surgery COMPLAINT: - OPEN PERIUMBILICAL INCISIONAL HERNIA REPAIR W/MESH DIAGNOSES: - Incisional hernia without obstruction or gangrene 01/31/2019 05:29 [facility] [place] TYPE: Medical Surgical COMPLAINT: - ABDOMINAL PAIN/UMBILICAL HERNIA DIAGNOSES: - Allergy status to narcotic agent status - penitentiary (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 of oral 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 drugs - Syndrome of inappropriate secretion of antidiuretic hormone - Schizoaffective disorder, unspecified - Cervicalgia - Fibromyalgia - Body mass index (BMI) 38.0-38.9, adult - Other shelter (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 - rodent exterminator (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 of opiate analgesic - Other [...] other drugs, medicaments and biological substances status [email or web address]
== END 2020-01-08 09:03 | disposition home or self-care (01) ==
LOC: ED 05:57
DX: R51.9 Headache, unspecified (principal); R42 Dizziness and giddiness; I10 Essential (primary) hypertension; E11.9 Type 2 diabetes mellitus without complications; F32.9 Major depressive disorder, single episode, unspecified; F43.10 Post-traumatic stress disorder, unspecified; Z87.891 Personal history of nicotine dependence; Z88.8 Allergy status to other drugs, medicaments and biological substances; Z88.5 Allergy status to narcotic agent; Z79.899 Other long term (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; Z79.52 Long term (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; Z79.84 Long term (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 of oral 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 drugs
CPT/HCPCS: 70553; 96374; 99284-25; A9577; J1885

== ENCOUNTER 2020-06-24 03:18 | Emergency (ER) | payer MEDICARE, OTHER ==
[~2020-06-24] VITALS: Ht 175.3 cm; Wt 115.2 kg
[~2020-06-24 03:18] MED LIST changes: +AMLODIPINE BESYL5 MG PO; -CARBAMAZEPINE200 M2 PO; +TEGRETOL200 MG PO
[2020-06-24] MEDS ORDERED: LISINOPRIL20 MG PO (03:35)
[2020-06-24] MEDS ORDERED: FUROSEMIDE20 MG PO (03:38)
[2020-06-24] MEDS ORDERED: LYRICA150 MG PO (03:39)
== END 2020-06-24 04:43 | disposition home or self-care (01) ==
LOC: ED 03:18
DX: M79.671 Pain in right foot (principal); I10 Essential (primary) hypertension; E11.9 Type 2 diabetes mellitus without complications; Z87.891 Personal history of nicotine dependence; Z88.8 Allergy status to other drugs, medicaments and biological substances; Z88.5 Allergy status to narcotic agent; Z79.899 Other long term (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; Z79.84 Long term (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 of oral 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 drugs
CPT/HCPCS: 73630; 96372; 99283-25; J1885

== ENCOUNTER 2020-07-07 22:37 | Emergency (ER) | payer MEDICARE, OTHER ==
[~2020-07-07] VITALS: Ht 175.3 cm; Wt 113.4 kg
[~2020-07-07 22:37] MED LIST changes: +LISINOPRIL20 MG PO; +LYRICA150 MG PO
--- OUTSIDE RECORDS SUMMARY | 2020-07-07 22:40 | XMS ---
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 - 2 Visits in 30 Days CARE PROVIDERS SANJEEV BREAUX [facility] 05/23/2018-Current PHONE: [phone] Care Guidelines exist for the following facilities: [facility] ( 04/28/2020 ) Care History Medical/Surgical 01/09/2020 [facility] - [facility] CALLED PATIENT DISCUSSED ED USAGE VS PCP USAGE. - PATIENT STATED SHE WILL MAKE AN APT WITH PCP DR BRAEUX WITHIN THE NEXT WEEK OR TWO. - AT THIS TIME PATIENT DOES NOT WANT CHW TO HELP AND OR COORDINATE CARE -CHW PROVIDED CONTACT NUMBER FOR FUTURE HELP /RESOURCES IF NEEDED. E.D. VISIT COUNT (12 MO.) 3 [facility] TOTAL 10 NOTE: Visits indicate total known visits. 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 - Allergy status to other drugs, medicaments and biological substances - correction (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 of oral 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 drugs - Essential (primary) hypertension - Allergy status to narcotic agent - Type 2 diabetes mellitus without complications - Personal history of nicotine dependence [facility]2020 [facility] DIAGNOSES: - Headache, unspecified - Essential (primary) hypertension - high bp - Headache (Adult - Re-evaluation) - Hypertension 01/18/2020 22:33 [facility] TYPE: Emergency COMPLAINT: - POSSIBLE HIGH BLOOD PRESSURE 01/08/2020 05:58 [facility] TYPE: Emergency COMPLAINT: - HEAD PAIN DIAGNOSES: - Allergy status to other drugs, medicaments and biological substances - Essential (primary) hypertension - Allergy status to other drugs, medicaments and biological substances - Allergy status to narcotic agent - Allergy status to narcotic agent - Post-traumatic stress disorder, unspecified - HEADACHE, UNSPECIFIED - Dizziness and giddiness - Headache, unspecified - 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 - correction (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 of oral 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 drugs - Major depressive disorder, single episode, unspecified - Headache, unspecified - Type 2 diabetes mellitus without complications - Other senior living (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 - Personal history of nicotine dependence 01/07/2020 14:55 [facility] [place] TYPE: Emergency COMPLAINT: - WEAKNESS, ALTERED LOC DIAGNOSES: - Other senior living (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 - Dizziness and giddiness - Major depressive disorder, single episode, unspecified - Allergy status to narcotic agent - Allergy status to other drugs, medicaments and biological substances - Type 2 diabetes mellitus without complications - Allergy status to narcotic agent - 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 - Post-traumatic stress disorder, unspecified - Allergy status to other drugs, medicaments and biological substances - Essential (primary) hypertension - Personal history of nicotine dependence 12/19/2019 12:54 [facility] [place] TYPE: Emergency COMPLAINT: - DIZZINESS 10/03/2019 10:52 [facility] [place] TYPE: Emergency DIAGNOSES: - head pain, pressure, dizzy - Headache (Adult - Recurrent Or Known Dx Migraines) - Headache 09/17/2019 19:30 [facility] [place] TYPE: Emergency COMPLAINT: - DIZZINESS DIAGNOSES: - Dizziness and giddiness - Essential (primary) hypertension - Allergy status to narcotic agent - Major depressive disorder, single episode, unspecified - Type 2 diabetes mellitus without complications - correction (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 of oral 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 drugs - Headache - 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 - Allergy status to other drugs, medicaments and biological substances - Hypo-osmolality and hyponatremia - Nicotine dependence, unspecified, uncomplicated [facility]14/2019 [facility] DIAGNOSES: - Headache - Headache (Adult - New Onset Or New Symptoms) - pain in head INPATIENT VISIT TRACKING (12 MO.) 01/18/2020 22:34 [facility] TYPE: Observation COMPLAINT: - HYPONATREMIA DIAGNOSES: - Allergy status to narcotic agent - Poisoning by other opioids, accidental (unintentional), initial encounter - Fibromyalgia - correction (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 - Other chronic pain - Hypo-osmolality and hyponatremia - Other cervical disc degeneration, unspecified cervical region - Acquired absence of other specified parts of digestive tract - Irritable bowel syndrome without diarrhea - Syndrome of inappropriate secretion of antidiuretic hormone - Post-traumatic stress disorder, unspecified - correction (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 of oral 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 drugs - Personal history of nicotine dependence - Allergy status to other drugs, medicaments and biological substances - Dorsalgia, unspecified - Migraine, unspecified, not intractable, without status migrainosus - Hypomagnesemia - Allergy status to narcotic agent - Chronic obstructive pulmonary disease, unspecified - Schizoaffective disorder, bipolar type - Gastro-esophageal reflux disease without esophagitis - Essential (primary) hypertension - Allergy status to other drugs, medicaments and biological substances - Type 2 diabetes mellitus without complications - Contact with and (suspected) exposure to other viral communicable diseases 12/19/2019 12:55 [facility] [place] TYPE: Observation COMPLAINT: - BRONCHITIS/HYPONATREMIA DIAGNOSES: - Hypo-osmolality and hyponatremia - Contact with and (suspected) exposure to other viral communicable diseases - Syncope and collapse - Gastro-esophageal reflux disease without esophagitis - Hypomagnesemia - Hypercalcemia - Type 2 diabetes mellitus without complications - 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 - Schizoaffective disorder, bipolar type - Old myocardial infarction - Allergy status to narcotic agent - Essential (primary) hypertension - Allergy status to narcotic agent - correction (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 of oral 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 drugs - Allergy status to other drugs, medicaments and biological substances - Dehydration - Chronic obstructive pulmonary disease with (acute) lower respiratory infection - Personal history of nicotine dependence - Allergy status to other drugs, medicaments and biological substances - Cough - Acute bronchitis, unspecified [email or web address]
[2020-07-07] MEDS ORDERED: CARBAMAZEPINE200 MG PO (22:57)
[2020-07-07] MEDS ORDERED: PRAVASTATIN SOD40 MG PO (22:58)
[2020-07-08] MEDS ORDERED: DICLOFENAC SODI75 MG PO (00:50)
[2020-07-08] MEDS ORDERED: HYDROCODON-ACE1 EA10 PO (00:50)
== END 2020-07-08 01:10 | disposition home or self-care (01) ==
LOC: ED 22:37
DX: K57.90 Diverticulosis of intestine, part unspecified, without perforation or abscess without bleeding (principal); I10 Essential (primary) hypertension; E11.9 Type 2 diabetes mellitus without complications; Z88.8 Allergy status to other drugs, medicaments and biological substances; Z88.5 Allergy status to narcotic agent; Z79.899 Other long term (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; Z79.84 Long term (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 of oral 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 drugs
CPT/HCPCS: 74176; 80053; 81001; 85025; 96374; 96375; 99284-25; J1170; J1885; J2405

== ENCOUNTER 2020-07-18 11:40 | Emergency (ER) | payer MEDICARE, OTHER ==
[~2020-07-18] VITALS: Ht 175.3 cm; Wt 116.6 kg
[~2020-07-18 11:40] MED LIST changes: +DICLOFENAC SODI75 MG PO; +HYDROCODON-ACE1 EA10 PO; +PRAVASTATIN SOD40 MG PO
--- OUTSIDE RECORDS SUMMARY | 2020-07-18 11:46 | XMS ---
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 - PATIENT STATED SHE WILL MAKE AN APT WITH PCP DR BREAUX WITHIN THE NEXT WEEK OR TWO. - AT THIS TIME PATIENT DOES NOT WANT CHW TO HELP AND OR COORDINATE CARE -CHW PROVIDED CONTACT NUMBER FOR FUTURE HELP /RESOURCES IF NEEDED. E.D. VISIT COUNT (12 MO.) 3 Jeanette Lawson M[facility] 8 [facility] [place] TOTAL 11 NOTE: Visits indicate total known visits. ED/UCC VISIT TRACKING (12 MO.) 07/18/2020 11:41 [facility] [place] TYPE: Emergency COMPLAINT: - LOWER RT QUAD PAIN,SYNCOPE 07/07/2020 22:38 [facility] [place] TYPE: Emergency COMPLAINT: - BACK PAIN,NAUSEA DIAGNOSES: - custodial (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 of oral 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 drugs - Allergy status to other drugs, medicaments and biological substances - Other alf (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 - Type 2 diabetes mellitus without complications - Essential (primary) hypertension - Allergy status to narcotic agent - Diverticulosis of intestine, part unspecified, without perforation or abscess without bleeding - Unspecified abdominal pain 06/24/2020 03:18 [facility] [place] TYPE: Emergency COMPLAINT: - RT FOOT PN DIAGNOSES: - Pain in right foot - Other alf (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 - Allergy status to other drugs, medicaments and biological substances - custodial (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 of oral 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 drugs - Essential (primary) hypertension - Allergy status to narcotic agent - Type 2 diabetes mellitus without complications - Personal history of nicotine dependence 01/31/2020 09:14 [facility] Bonita [place] TYPE: Emergency DIAGNOSES: - Headache, unspecified - Essential (primary) hypertension - high bp - Headache (Adult - Re-evaluation) - Hypertension 01/18/2020 22:33 [facility] [place] TYPE: Emergency COMPLAINT: - POSSIBLE HIGH BLOOD PRESSURE 01/08/2020 05:58 [facility] [place] TYPE: Emergency COMPLAINT: - HEAD PAIN DIAGNOSES: - Allergy status to other drugs, medicaments and biological substances - Essential (primary) hypertension - Allergy status to other drugs, medicaments and biological substances - Allergy status to narcotic agent - Allergy status to narcotic agent - Post-traumatic stress disorder, unspecified - HEADACHE, UNSPECIFIED - Dizziness and giddiness - Headache, unspecified - custodial (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 - custodial (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 of oral 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 drugs - Major depressive disorder, single episode, unspecified - Headache, unspecified - Type 2 diabetes mellitus without complications - Other alf (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 - Personal history of nicotine dependence 01/07/2020 14:55 [facility] [place] TYPE: Emergency COMPLAINT: - WEAKNESS, ALTERED LOC DIAGNOSES: - 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 - Dizziness and giddiness - Major depressive disorder, single episode, unspecified - Allergy status to narcotic agent - Allergy status to other drugs, medicaments and biological substances - Type 2 diabetes mellitus without complications - Allergy status to narcotic agent - 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 - Post-traumatic stress disorder, unspecified - Allergy status to other drugs, medicaments and biological substances - Essential (primary) hypertension - Personal history of nicotine dependence 12/19/2019 12:54 [facility] [place] TYPE: Emergency COMPLAINT: - DIZZINESS [facility] DIAGNOSES: - head pain, pressure, dizzy - Headache (Adult - Recurrent Or Known Dx Migraines) - Headache 09/17/2019 19:30 [facility] [place] TYPE: Emergency COMPLAINT: - DIZZINESS DIAGNOSES: - Dizziness and giddiness - Essential (primary) hypertension - Allergy status to narcotic agent - Major depressive disorder, single episode, unspecified - Type 2 diabetes mellitus without complications - 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
[2020-07-18] MEDS ORDERED: HYDROCODON-ACE1 EA10 PO (18:32)
== END 2020-07-18 19:34 | disposition home or self-care (01) ==
LOC: ED 11:40
DX: R10.9 Unspecified abdominal pain (principal); R19.7 Diarrhea, unspecified; E83.42 Hypomagnesemia; I10 Essential (primary) hypertension; E11.9 Type 2 diabetes mellitus without complications; Z88.8 Allergy status to other drugs, medicaments and biological substances; Z88.5 Allergy status to narcotic agent; Z79.899 Other long term (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; Z79.84 Long term (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 of oral 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 drugs
CPT/HCPCS: 74176; 80053; 81001; 83690; 83735; 85025; 96365; 96375; 96376; 99284-25; J1885; J2270; J2405; J3010; J3475; J7030

== ENCOUNTER 2020-07-27 22:21 | Emergency (ER) | payer MEDICARE, OTHER ==
[~2020-07-27] VITALS: Ht 175.3 cm; Wt 116.6 kg
--- OUTSIDE RECORDS SUMMARY | 2020-07-27 22:24 | XMS ---
PreManage Notification: TIM LOCKWOOD Security Reproduction Specialist Events No recent Security Events currently on file CRITERIA MET - [facility] - 2 Visits in 30 Days CARE PROVIDERS SANJEEV BREAUX [facility] 05/23/2018-Current PHONE: [phone] LELAND NOYOLA [facility] 07/21/2020-Current PHONE: [phone] Care Guidelines exist for the following facilities: [facility] ( 04/28/2020 ) Care History Medical/Surgical 01/09/2020 [facility] - CHW CALLED PATIENT DISCUSSED ED USAGE VS PCP USAGE. - PATIENT STATED SHE WILL MAKE AN APT WITH PCP DR BREAUX WITHIN THE NEXT WEEK OR TWO. - AT THIS TIME PATIENT DOES NOT WANT CHW TO HELP AND OR COORDINATE CARE -CHW PROVIDED CONTACT NUMBER FOR FUTURE HELP /RESOURCES IF NEEDED. [place] VISIT COUNT (12 MO.) 3 [facility]. [place] 9 CHRISTA Rivera TOTAL 12 NOTE: Visits indicate total known visits. 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 - Allergy status to narcotic agent - Unspecified abdominal pain - Type 2 diabetes mellitus without complications - Essential (primary) hypertension - Hypomagnesemia 07/07/2020 22:38 [facility] [place] TYPE: Emergency COMPLAINT: - BACK PAIN,NAUSEA DIAGNOSES: - custodial (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 of oral 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 drugs - Allergy status to other drugs, medicaments and biological substances - 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 - Type 2 diabetes mellitus without complications - Essential (primary) hypertension - Allergy status to narcotic agent - Diverticulosis of intestine, part unspecified, without perforation or abscess without bleeding - Unspecified abdominal pain 06/24/2020 03:18 [facility] TYPE: Emergency COMPLAINT: - RT FOOT PN DIAGNOSES: - Pain in right foot - 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 - Allergy status to other drugs, medicaments and biological substances - custodial (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 of oral 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 drugs - Essential (primary) hypertension - Allergy status to narcotic agent - Type 2 diabetes mellitus without complications - Personal history of nicotine dependence 01/31/2020 09:14 [facility] DIAGNOSES: - Headache, unspecified [...] Dizziness and giddiness - Headache, unspecified - 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 - custodial (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 of oral 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 drugs - Major depressive disorder, single episode, unspecified - Headache, unspecified - Type 2 diabetes mellitus without complications - Other senior care (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 - Personal history of nicotine dependence 01/07/2020 14:55 [facility] [place] TYPE: Emergency COMPLAINT: - WEAKNESS, ALTERED LOC DIAGNOSES: - Other senior care (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 - Dizziness and giddiness - Major depressive disorder, single episode, unspecified - Allergy status to narcotic agent - Allergy status to other drugs, medicaments and biological substances - Type 2 diabetes mellitus without complications - Allergy status to narcotic agent - custodial (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 - Post-traumatic stress disorder, unspecified - Allergy status to other drugs, medicaments and biological substances - Essential (primary) hypertension - Personal history of nicotine dependence 12/19/2019 12:54 [facility] [place] TYPE: Emergency COMPLAINT: - DIZZINESS 10/03/2019 10:[facility] DIAGNOSES: - head pain, pressure, dizzy - Headache (Adult - Recurrent Or Known Dx Migraines) - Headache 09/17/2019 19:30 [facility]STA Burrell TYPE: Emergency COMPLAINT: - DIZZINESS DIAGNOSES: - Dizziness and giddiness - Essential (primary) hypertension - Allergy status to narcotic agent - Major depressive disorder, single episode, unspecified - Type 2 diabetes mellitus without complications - 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 - Headache - Other senior care (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 - Allergy status to other drugs, medicaments and biological substances - Hypo-osmolality and hyponatremia - Nicotine dependence, unspecified, uncomplicated 09/14/2019 21:35 [facility]: [facility] DIAGNOSES: - Headache - Headache (Adult - New Onset Or New Symptoms) - pain in head INPATIENT VISIT TRACKING (12 MO.) 01/18/2020 22:34 CHRISTA Burrell TYPE: Observation COMPLAINT: - HYPONATREMIA DIAGNOSES: - Allergy status to narcotic agent - Poisoning by other opioids, accidental (unintentional), initial encounter - Fibromyalgia - 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 - Other chronic pain - Hypo-osmolality and hyponatremia - Other cervical disc degeneration, unspecified cervical region - Acquired absence of other specified parts of digestive tract - Irritable bowel syndrome without diarrhea - Syndrome of inappropriate secretion of antidiuretic hormone - Post-traumatic stress disorder, unspecified - custodial (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 of oral 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 [...] diabetes mellitus without complications - Other senior care (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 - Schizoaffective disorder, bipolar type - Old myocardial infarction - Allergy status to narcotic agent - Essential (primary) hypertension - Allergy status to narcotic agent - custodial (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 of oral 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 drugs - Allergy status to other drugs, medicaments and biological substances - Dehydration - Chronic obstructive pulmonary disease with (acute) lower respiratory infection - Personal history of nicotine dependence - Allergy status to other drugs, medicaments and biological substances - Cough - Acute bronchitis, unspecified [email or web address]
== END 2020-07-28 00:20 | disposition home or self-care (01) ==
LOC: ED 22:21
DX: S76.012A Strain of muscle, fascia and tendon of left hip, initial encounter (principal); X58.XXXA Exposure to other specified factors, initial encounter; I10 Essential (primary) hypertension; E11.9 Type 2 diabetes mellitus without complications; F17.200 Nicotine dependence, unspecified, uncomplicated; Z88.8 Allergy status to other drugs, medicaments and biological substances; Z88.5 Allergy status to narcotic agent; Z79.899 Other long term (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; Z79.84 Long term (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 of oral 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 drugs
CPT/HCPCS: 73502; 96372; 99283-25; J1885

== ENCOUNTER 2020-11-23 15:55 | Emergency (ER) | payer MEDICARE, OTHER ==
[~2020-11-23] VITALS: Ht 175.3 cm; Wt 100.2 kg
--- OUTSIDE RECORDS SUMMARY | 2020-11-23 15:56 | XMS ---
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 - PATIENT STATED SHE WILL MAKE AN APT WITH PCP DR BREAUX WITHIN THE NEXT WEEK OR TWO. - AT THIS TIME PATIENT DOES NOT WANT CHW TO HELP AND OR COORDINATE CARE -CHW PROVIDED CONTACT NUMBER FOR FUTURE HELP /RESOURCES IF NEEDED. [place] VISIT COUNT (12 MO.) [address] [place] 9 CHRISTA Rivera TOTAL 10 NOTE: Visits indicate total known visits. 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 - Allergy status to narcotic agent - Allergy status to other drugs, medicaments and biological substances - Type 2 diabetes mellitus without complications - Strain of muscle, fascia and tendon of left hip, initial encounter 07/18/2020 11:41 [facility] [place] TYPE: Emergency COMPLAINT: - LOWER RT QUAD PAIN,SYNCOPE DIAGNOSES: - Allergy status to other drugs, medicaments and biological substances - Other buttermaker continuous churn (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 - Diarrhea, unspecified - 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 - Allergy status to narcotic agent - Unspecified abdominal pain - Type 2 diabetes mellitus without complications - Essential (primary) hypertension - Hypomagnesemia 07/07/2020 22:38 [facility] [place] TYPE: Emergency COMPLAINT: - BACK PAIN,NAUSEA DIAGNOSES: - M[facility] (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 of oral 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 drugs - Allergy status to other drugs, medicaments and biological substances - Other detention (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 - Type 2 diabetes mellitus without complications - Essential (primary) hypertension - Allergy status to narcotic agent - Diverticulosis of intestine, part unspecified, without perforation or abscess without bleeding - Unspecified abdominal pain 06/24/2020 03:18 [facility] [place] TYPE: Emergency COMPLAINT: - RT FOOT PN DIAGNOSES: - Pain in right foot - Other detention (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 - Allergy status to other drugs, medicaments and biological substances - MCC (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 of oral 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 drugs - Essential (primary) hypertension - Allergy status to narcotic agent - Type 2 diabetes mellitus without complications - Personal history of nicotine dependence 01/31/2020 09:14 [facility] Bonita BEAS[place] TYPE: Emergency DIAGNOSES: [...] Dizziness and giddiness - Headache, unspecified - 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 (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 - 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 - Major depressive disorder, single episode, unspecified - Headache, unspecified - Type 2 diabetes mellitus without complications - Other buttermaker continuous churn (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 - Personal history of nicotine dependence 01/07/2020 14:55 [facility] [place] TYPE: Emergency COMPLAINT: - WEAKNESS, ALTERED LOC DIAGNOSES: - Other buttermaker continuous churn (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 - Dizziness and giddiness - Major depressive disorder, single episode, unspecified - Allergy status to narcotic agent - Allergy status to other drugs, medicaments and biological substances - Type 2 diabetes mellitus without complications - Allergy status to narcotic agent - MCC (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 - Post-traumatic stress disorder, unspecified - Allergy status to other drugs, medicaments and biological substances - Essential (primary) hypertension - Personal history of nicotine dependence 12/19/2019 12:54 [facility] [place] TYPE: Emergency COMPLAINT: - DIZZINESS INPATIENT VISIT TRACKING (12 MO.) 01/18/2020 22:34 [facility] [place] TYPE: Observation COMPLAINT: - HYPONATREMIA DIAGNOSES: - Allergy status to narcotic agent - Poisoning by other opioids, accidental (unintentional), initial encounter - Fibromyalgia - MCC (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 - Other chronic pain - Hypo-osmolality and hyponatremia - Other cervical disc degeneration, unspecified cervical region - Acquired absence of other specified parts of digestive tract - Irritable bowel syndrome without diarrhea - Syndrome of inappropriate secretion of antidiuretic hormone - Post-traumatic stress disorder, unspecified - MCC (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 of oral 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 drugs - [...] diabetes mellitus without complications - Other buttermaker continuous churn (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 - Schizoaffective disorder, bipolar type - Old myocardial infarction - Allergy status to narcotic agent - Essential (primary) hypertension - Allergy status to narcotic agent - MCC (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 of oral 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 drugs - Allergy status to other drugs, medicaments and biological substances - Dehydration - Chronic obstructive pulmonary disease with (acute) lower respiratory infection - Personal history of nicotine dependence - Allergy status to other drugs, medicaments and biological substances - Cough - Acute bronchitis, unspecified [email or web address]
--- NOTE | 2020-11-24 12:16 | EKG ---
[facility] [address] [place], [place] [address] Signed Normal sinus rhythm Normal ECG When compared with ECG of 18-JAN-2020 22:44, No significant change was found Confirmed by AGAPITO ALEXANDRA DO ([id number]) on 11/24/2020 12:16:10 PM Electronically Signed By: AGAPITO ALEXANDRA DO 11/24/20 1216 PATIENT NAME: LOCKWOODTIM ZEYNEP Electrocardiogram DATE OF : 53 PHYSICIAN: AGAPITO ALEXANDRA DO REPORT #: [id number] REPORT IS CONFIDENTIAL AND NOT TO BE RELEASED WITHOUT AUTHORIZATION
--- NOTE | 2020-11-24 12:16 | EKG ---
[facility] [address] [place], [place] [address] Signed Normal sinus rhythm Normal ECG No previous ECGs available Confirmed by AGAPITO ALEXANDRA DO ([id number]) on 11/24/2020 12:16:14 PM Electronically Signed By: AGAPITO ALEXANDRA DO 11/24/20 1216 PATIENT NAME: TIM LOCKWOOD Electrocardiogram DATE OF : 53 PHYSICIAN: AGAPITO ALEXANDRA DO REPORT #: [id number] REPORT IS CONFIDENTIAL AND NOT TO BE RELEASED WITHOUT AUTHORIZATION
== END 2020-11-23 19:55 | disposition home or self-care (01) ==
LOC: ED 15:55
DX: R07.89 Other chest pain (principal); I10 Essential (primary) hypertension; E11.9 Type 2 diabetes mellitus without complications; F43.10 Post-traumatic stress disorder, unspecified; F17.200 Nicotine dependence, unspecified, uncomplicated; Z88.8 Allergy status to other drugs, medicaments and biological substances; Z88.5 Allergy status to narcotic agent; Z79.899 Other long term (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; Z79.84 Long term (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 of oral 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 drugs
CPT/HCPCS: 71045; 71260; 80053; 83735; 84484; 85025; 85379; 93005; 93010; 99285-25; J1170; J1885; J2250; J2704; J7030

== ENCOUNTER 2021-03-13 12:02 | Inpatient (IN) | payer MEDICARE, OTHER ==
[~2021-03-13] VITALS: Ht 175.3 cm; Wt 102.0 kg
--- OUTSIDE RECORDS SUMMARY | 2021-03-13 12:06 | XMS ---
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 No recent Security Events currently on file CRITERIA MET - [facility] - [facility] Guidelines CARE PROVIDERS SANJEEV BREAUX [facility] 05/23/2018-Current PHONE: Unknown LELAND NOYOLA [facility] 07/21/2020-Current PHONE: [phone] Guidelines [facility] Date: 11/24/2020 Care Coordination: Mental health services provided by [facility].\T\nbsp;Please contact [facility] with mental health concerns.\T\nbsp; [place]/Chandan Caruso: [phone]\T\nbsp; Alex: [phone] Crisis: [phone] E.D. VISIT COUNT (12 MO.) [address] [facility] TOTAL 6 NOTE: Visits indicate total known visits. 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 - Type 2 diabetes mellitus without complications 07/27/2020 22:22 [facility] [place] TYPE: Emergency COMPLAINT: - BENT OVER AND INJURED LOWER BACK DIAGNOSES: - Essential (primary) hypertension - Exposure to other specified factors, initial encounter - Nicotine dependence, unspecified, uncomplicated - Other manager long term care (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 - 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 (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 of oral 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 [...] drugs, medicaments and biological substances - Other manager long term care (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 - Diarrhea, unspecified - [facility] (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 of oral 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 drugs - Allergy status to narcotic agent - Unspecified abdominal pain - Type 2 diabetes mellitus without complications - Essential (primary) hypertension - Hypomagnesemia 07/07/2020 22:38 [facility] [place] TYPE: Emergency COMPLAINT: - BACK PAIN,NAUSEA DIAGNOSES: - [facility] (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 of oral 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 drugs - Allergy status to other drugs, medicaments and biological substances - Other group home (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 - Type 2 diabetes mellitus without complications - Essential (primary) hypertension - Allergy status to narcotic agent - Diverticulosis of intestine, part unspecified, without perforation or abscess without bleeding - Unspecified abdominal pain 06/24/2020 03:18 [facility] [place] TYPE: Emergency COMPLAINT: - RT FOOT PN DIAGNOSES: - Pain in right foot - Other group home (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 - Allergy status to other drugs, medicaments and biological substances - [facility] (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 of oral 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 drugs - Essential (primary) hypertension - Allergy status to narcotic agent - Type 2 diabetes mellitus without complications - Personal history of nicotine dependence INPATIENT VISIT TRACKING (12 MO.) No inpatient visits to display in this time frame [email or web address]
--- NOTE | 2021-03-13 18:00 | NUR ---
PT ARRIVED AT 1725. PT AAOX4, PAIN 9/10. ABD IS SOFT TO TOUCH BUT VERY TENDER IN THE RLQ, RUQ AND THE MIDDLE. BOWEL TONES ARE HYPOACTIVE. LOBES ARE CLEAR BUT DIMINISHED IN THE BASES. NO PERIPH. EDEMA PRESEENT, RADIAL AND PEDAL PULSES PRESENT. PT REMAINS ON 2L O2 NC SINCE PT STATED THAT SHE CANNOT REALLY TAKE DEEP BREATHS. V/S WDL. WILL CONTINUE TO MONITOR.
--- NOTE | 2021-03-13 19:30 | NUR ---
SHIFT REPORT RECEIVED. IV FLUIDS STARTED PER ORDER. PATIENT IS ALERT AND ORIENTED, TALKING WITH VISITOR. APPEARS COMFORTABLE. REPORTS IMPROVED ABD PAIN. PATIENT UP TO BSC WITH MINIMAL ASSIST. VOID SMALL AMOUNT, 75 MLS. BRINE WELL OPERATOR CONTACTED AND IS AWARE OF MEDS NEEDED, WILL BRING ONCE MIXED. DR. WOMACK IN TO SEE PATIENT.
--- NOTE | 2021-03-13 20:06 | NUR ---
DISCUSSED IV FLAGYL ORDER WITH THIOKOL OPERATOR. ON-CALL PHARMACY REPORTED UNABLE TO OBTAIN DOSE. REPORTED TO MD. NO NEW ORDERS RECIEVED.
--- NOTE | 2021-03-13 20:58 | NUR ---
IV PUMP ALARMING, IN TO RESTART FLUIDS. PT REPORTS 11/21 ABDOMINAL PAIN, 4MG IV MORPHINE ADMINISTERED. DISCUSSED WITH PRIMARY RN, RAMÓN.
--- NOTE | 2021-03-13 23:21 | NUR ---
PATIENT UP TO THE BSC TO HAVE A BM. SAMPLE COLLECTED. PATIENT ALSO VOIDED A SMALL AMOUNT. PATIENT REPORTS HEADACHE AND REQUEST PRN MEDS. TYLENOL AND MELETONIN PROVIDED.
--- NOTE | 2021-03-13 23:48 | NUR ---
PATIENT PROVIDED WITH PRN MORPHINE FOR 8/10 PAIN IN HER RUQ, RIGHT SIDE AND HER BACK. PATIENT DENIES NAUSEA. NO OTHER NEEDS AT THIS TIME.
--- NOTE | 2021-03-14 02:33 | NUR ---
0200 patient up to have bm, small mucoid bm noted. patient's abdomen is cramping and hurting. patient also reports an ongoing headache. no nausea. 0225 patient called due to finding blood in her bed. the clave of the iv in the right wrist was off and blood back flowing from the vein. tubing cleaned. new clave attached and flushed. new linen and gown provided.
--- NOTE | 2021-03-14 03:49 | NUR ---
patient reports pain 10/10, prn morphine provided. patient then got up to bsc. small/med liquid stool. no obvious urine, patient didn't think she voided. patient denied nausea. returned to bed. vs stable. several mins later patient called again, ask about pain meds and reports no change from pain. reminded patient of receiving pain meds prior to using bsc and encouraged her to rest for about 20mins to see if her pain will respond. patient agrees to this.
--- NOTE | 2021-03-14 04:30 | NUR ---
PATIENT APPEARS TO BE SLEEPING WITH EYES CLOSED. VS STABLE.
--- NOTE | 2021-03-14 06:00 | NUR ---
PATIENT REPORTS 9/10 ABD PAIN. APPEARS CALM AND RESTING IN BED. PAIN IN RUQ AND BACK. PRN MORPHINE PROVIDED AND TYLENOL FOR HER HEADACHE WHICH IS CHRONIC. IV FLUIDS PER ORDER, SITE WNL. NO NAUSEA. TOLERATING A FEW ICE CHIPS AT A TIME.
--- NOTE | 2021-03-14 07:30 | NUR ---
REPORT RECIEVED. PATIENT IS RESTFUL IN BED. IVF INFUSING. SITTNG UP IN BED WATCHING TV.
[2021-03-14] MEDS ORDERED: CYPROHEPTADINE H4 MG PO (08:27)
[2021-03-14] MEDS ORDERED: LAMOTRIGINE100 MG PO (08:29)
--- NOTE | 2021-03-14 08:30 | NUR ---
UP TO COMMODE TO EXPELL URINE WITH LIQUID STOOL. DENIES DIZZINESS WITH MOVMENT. BACK TO BED W/OO INCIDENT. C/O OCC NAUSEA. TALKATIVE AND IN GOOD SPIRITS.
--- NOTE | 2021-03-14 09:00 | CONS ---
[facility] [address], [place] [address] Signed DATE OF CONSULTATION: 03/13/2021 CHIEF COMPLAINT: Right-sided abdominal pain. HISTORY OF PRESENT ILLNESS: Luz Maria is a 65-year-old female, who I have known from the past. The last three days, she has had right-sided abdominal pain including right flank pain. It has been associated with nausea, anorexia, and diarrhea associated with some blood. She finally came to the emergency room for evaluation. In the emergency room, she was tender in the right side of the abdomen. She has had a blood pressure that has been running low from the lisinopril, so she stopped it. White count was elevated. CT scan shows her thickened colon from the cecum around to the mid transverse colon. She was therefore admitted to the Internal Medicine Service and started on Cipro and Flagyl and IV fluids. Overall, she is feeling better though she still feels very dehydrated. I have been asked to see her as a general surgeon on-call. Luz Maria thinks, may be, I performed a colonoscopy in the past, she is not sure. PAST MEDICAL HISTORY: Hypertension, degenerative disk disease, pulmonary embolism, diverticulosis, diabetes, fibromyalgia, chronic pain, depression, posttraumatic stress disorder, suicidal ideation, irritable bowel syndrome, and TMJ. PAST SURGICAL HISTORY: Appendectomy, bilateral tubal ligation, cholecystectomy, hysterectomy, L4 and L5 fusion, neck surgery, wrist and foot surgery, ventral hernia repair apparently above the umbilicus. SOCIAL HISTORY: She has smoked on and off her whole life, but not heavily. She now smokes about four or so cigarettes in a day. She does not drink. She lives in an apartment here in town, but is disabled and does drive. Her friend is Waqar Mazariegos at [phone]. Dr. Rose was her primary care provider. She prefers the [facility]. FAMILY HISTORY: Father had coronary artery disease. Mother had cancer. REVIEW OF SYSTEMS: There is nothing new to add. ALLERGIES: Codeine, Prazosin, olanzapine, quetiapine. Electronically Signed By: OCTAVIO WOMACK MD 03/14/21 0900 PATIENT NAME: LUZ MARIA LOCKWOOD CONSULTATION DATE OF : 53 REPORT #: [id number] PHYSICIAN: OCTAVIO WOMACK MD PCP: PEACE ROSE MD REPORT IS CONFIDENTIAL AND NOT TO BE RELEASED WITHOUT AUTHORIZATION [facility] [address] [place] [address] Signed MEDICATIONS: Metformin, Abilify, Imitrex, duloxetine, albuterol, dicyclomine, Lasix, Lyrica, and recently stopped lisinopril. PHYSICAL EXAMINATION: VITAL SIGNS: Blood pressure is 102/57, heart rate 89, respiratory rate 17, temperature is 99.5. She is 93% on 2 L. She is 5 feet 9 inches, 102 kg. GENERAL: Luz Maria is a 65-year-old female, lying supine semi-recumbent in her ICU bed, watching TV with her friend at the bedside. Her friend lives below her at the apartment complex. Luz Maria actually is in good spirits and does not appear systemically ill or toxic. LUNGS: Clear to auscultation bilaterally. HEART: Regular rate and rhythm without murmurs. ABDOMEN: Moderately protuberant, but soft and tender along the right side of the abdomen, but no peritoneal signs or symptoms. LABORATORY DATA: White blood count 23,000, neutrophils 71, hemoglobin 11.9, mean cell volume is 88. Sodium is 133, BUN 18, creatinine 1.09, glucose 127, lactic acid 0.6, calcium 10.4. COVID is negative. Urinalysis negative. Blood cultures are pending. Stool studies are pending. C. diff is pending. Cologuard was undertaken in March 2020, it was negative. RADIOGRAPHIC STUDIES: A CT scan of abdomen and pelvis is reviewed and shows the thickened right mid transverse colon. She apparently has a small ventral hernia of 3.5 x 2.8 cm in the epigastric area. She has a small umbilical hernia. She appears to have a previous ventral hernia repair. She has small bilateral inguinal hernias. There is no significant atherosclerosis to her celiac trunk or the SMA. ASSESSMENT/PLAN: Luz Maria is a 65-year-old female, who presents with right-sided colitis. It could be ischemic, but it could be infectious as well. Right now, she is undergoing conservative treatment and we will see how she progresses clinically with followup serial exams and laboratory work. She may need a colonoscopy during this admission. I did review my office records and I cannot find any previous colonoscopy. We will check again on Tuesday. I have reviewed this with the Luz Maria. She has expressed understanding, agrees to above plan. Octavio Womack MD Electronically Signed By: OCTAVIO WOMACK MD 03/14/21 09 PATIENT NAME: LUZ MARIA LOCKWOOD CONSULTATION DATE OF : 53 REPORT #: [id number] PHYSICIAN: OCTAVIO WOMACK MD PCP: PEACE ROSE MD REPORT IS CONFIDENTIAL AND NOT TO BE RELEASED WITHOUT AUTHORIZATION [facility] [address] [address] Signed ALB/MODL /[id number] cc: MD Peace Joseph MD Copies: OCTAVIO WOMACK MD ~ Electronically Signed By: OCTAVIO WOMACK MD 03/14/21 0900 PATIENT NAME: LUZ MARIA LOCKWOOD CONSULTATION DATE OF : 53 REPORT #: [id number] PHYSICIAN: OCTAVIO WOMACK MD PCP: PEACE ROSE MD REPORT IS CONFIDENTIAL AND NOT TO BE RELEASED WITHOUT AUTHORIZATION
--- NOTE | 2021-03-14 09:20 | NUR ---
MORPHINE 4 MG IV GIVEN FOR PAIN.
[2021-03-14] MEDS ORDERED: LORAZEPAM0.5 MG PO (09:38)
--- NOTE | 2021-03-14 10:05 | NUR ---
LESS PAIN AFTER BEING MEDICATED WITH MORPHINE 4 MG.
[2021-03-14] MEDS ORDERED: VITAMIN D325 MC2 PO (10:39)
[2021-03-14] MEDS ORDERED: MAGOX 400400 MG PO (10:39)
[2021-03-14] MEDS ORDERED: IBU-200200 MG PO (10:40)
[2021-03-14] MEDS ORDERED: TYLENOL325 MG PO (10:40)
--- NOTE | 2021-03-14 10:41 | NUR ---
MED REC COMPLETE
--- NOTE | 2021-03-14 12:30 | NUR ---
UP TO COMMODE TO EXPELL APPROX 30 ML OF LIQUID GREEN STOOL. PATIENT IS STABLE ON FEET. PATIENT C/O SEVERE KAUR NAD RIGHT LOWER QUAD PAIN. STATES THE KAUR IS WORSE THAN THE ABD PAIN. MORPHINE 4 MG IV AND TYLENOL 650 MG PO GIVEN.
--- NOTE | 2021-03-14 14:00 | NUR ---
COMPAZINE GIVEN FOR NAUSEA.
--- NOTE | 2021-03-14 14:55 | NUR ---
ATTEMPTING TO SEPARATE URINE AND STOOL, UNABLE. WHEN CHARTING I/O, SINCE STOOL IS LIQUID AND IF THERE IS URINE ALSO, I CHART IT ALL IN THE URINE AREA OF THE CHART,
--- NOTE | 2021-03-14 15:00 | NUR ---
PATIENT HAS BEEN DRINKING [place], STATES KAUR IS ALMOST GONE NOW
--- NOTE | 2021-03-14 16:00 | NUR ---
ASSESSMENT DONE. CONTINUES TO TAKE BOWEL PREP. HAVING PERIODS OF NAUSEA. DR. WOMACK UPDATED ON PATIENT. PATIENT TO HAVE COLONOSCOPY TOMORROW. PERMIT SIGNED. HAS BEEN GETTING UP TO COMMODE TO EXPELL LIQ GREEN STOOL. HAS HAD SEVERAL STOOLS.
--- NOTE | 2021-03-14 18:30 | NUR ---
EMOTIONAL, C/O PAIN INCREASING WHEN USING I.S.. TOLD PATIENT THIS IS NORMAL. ENCOURAGED PATIENT TO CONTINUE TO TAKE BOWEL PREP.
--- NOTE | 2021-03-14 20:00 | NUR ---
PATIENT REPORT RECIEVED FROM AVTAR GARCIA. PATIENT ON 1 LITER OF OXYGEN DUE TO DE SAT'S WHEN SLEEPING. BREATHING IS EQUAL AND UNLABORED. FRIEND AT BEDSIDE. CALL LIGHT WITHIN REACH NO FUTHER NEEDS.
--- NOTE | 2021-03-14 20:00 | NUR ---
PATIENT ASSESSMENT COMPLETE. MEDICATIONS GIVEN ORDERED. PATIENT IS ALERT AND ORIENTEDX4. PATIENT IS DRINKING BOWEL PREP. PATIENT HAS NASAL CANULA OXYGEN 1 LITER. OXYGEN SATURATIONS AND RR WNL. DENIES SHORTNESS OF BREATH. PATIENT COMPLAINS OF 9/10 HEADACHE. PRN TYLENOL GIVEN. PATIENT HAS TENDERNESS IN THE RUQ. BOWEL TONES ARE ACTIVE. PATIENT IS HAVING STOOLS AND URINE MIXED. DOCUMENTED IN MAR. HEART RATE IS 70-80 BPM IN SINUS RHYTHM. CMST INTACT. IV SITES ARE PATENT. IV FLUIDS PER EMAR. NO QUESTIONS AT THIS TIME. PLAN OF CARE UPDATED. CALL LIGHT WITHIN REACH NO FUTHER NEEDS.
--- NOTE | 2021-03-14 22:00 | NUR ---
PATIENT SLEEPING. BREATHING EQUAL AND UNLABORED. CALL LIGHT WITHIN REACH NO FUTHER NEEDS.
--- NOTE | 2021-03-15 | NUR ---
PATIENT ASSESSMENT COMPLETE. PATIENT ALERT AND ORIENTED X4. LUNG SOUNDS ARE CLEAR IN THE UPPER LOBES AND DIMINISHED IN THE BASES. 1 LITER OF OXYGEN ON. OXYGEN SATURATIONS AND RR WNL. HEART RATE IS 70-90 BPM. PATIENT IS SINUS RHYTHM. AFEBRILE. URINE IS CLEAR AND YELLOW. BM ARE LIQUID. BOWEL TONES ARE ACTIVE. PATIENT IS STUD SETTER TO TOUCH IN UPPER RIGHT QUADRANT. PATIENT HAS A 9/10 HEADACHE. CMST INTACT. NO QUESTIONS AT THIS TIME CALL LIGHT WITHIN REACH NO FUTHER NEEDS.
--- NOTE | 2021-03-15 00:30 | NUR ---
PATIENT IN 9/10 PAIN FROM HEADACHE AND RIGHT UPPER QUADRANT PAIN. PATIENT ASKING FOR PAIN MEDICATION IV MORPHINE GIVEN. PATIENT NAUSEATED FROM MEDICATION AND HEADACHE. PATIENT REPOSTIONED. CALL LIGHT WITHIN REACH NO FUTHER NEEDS.
--- NOTE | 2021-03-15 00:45 | NUR ---
MD NOTIFIED ABOUT PATIENT PAIN AND NAUSEA. MD ORDERED DILAUDID 1 MG IV ONCE.
--- NOTE | 2021-03-15 02:30 | NUR ---
PATIENT ASLEEP. BREATHING EQUAL AND UNLABORED. 1 LITER OF OXYGEN VIA NASAL CANULUA ON AND SATURATIONS ARE WNL. CALL LIGHT WITHIN REACH NO FUTHER NEEDS.
--- NOTE | 2021-03-15 04:00 | NUR ---
PATIENT ASSESSMENT COMPLETE. PATIENT HAS A HEADACHE 9/10 PAIN. REPOSITIONING AND PRN TYLENOL GIVEN. ALERT AND ORIENTED X4. PATIENT ON 1 LITER OF OXYGEN. LUNGS ARE CLEAR IN THE UPPER LOBES AND DIMINISHED IN THE BASES. RR AND OXYGEN SATURATIONS ARE WNL. DENIES SHORTNESS OF BREATH. HEART RATE 70-80 BPM IN SINUS RHYTHM. URINE OUTPUT IS CLEAR AND YELLOW. PATIENT BM ARE GREEN AND LIQUID. RIGHT LOWER QUADRANT IS TENDER TO TOUCH. BOWEL TONES ACTIVE. PATIENT HAS BEEN NPO SINCE MIDNIGHT. AFEBRILE. NO QUESTIONS AT THIS TIME. CALL LIGHT WITHIN REACH NO FUTHER NEEDS.
--- NOTE | 2021-03-15 05:45 | NUR ---
PATIENT AM CARE COMPLETE. BED BATH AND ORAL CARE COMPLETE.
--- NOTE | 2021-03-15 07:30 | NUR ---
REPORT RECIEVED. PATIENT GETTING OOB TO COMMODE.
--- NOTE | 2021-03-15 07:35 | NUR ---
BACK TO BED AFTER HAVING SMALL LIQUID STOOL WITH URINE. C/O INCREASED DIZZINESS TODAY. PATIENT IS EMOTIONAL. PATIENT TO HAVE COLONOSCOPY THIS AM.
--- NOTE | 2021-03-15 07:45 | EKG ---
[facility] [address] [facility] [place], [place] [address] Signed Normal sinus rhythm Low voltage QRS Borderline ECG When compared with ECG of 23-NOV-2020 17:09, No significant change was found Confirmed by ROBERTO BRADLEY MD ([id number]) on 03/15/2021 7:45:17 AM Electronically Signed By: ROBERTO BRADLEY MD 03/15/21 0745 PATIENT NAME: TIM LOCKWOOD Electrocardiogram DATE OF : 53 PHYSICIAN: ROBERTO BRADLEY MD REPORT #: [id number] REPORT IS CONFIDENTIAL AND NOT TO BE RELEASED WITHOUT AUTHORIZATION
--- NOTE | 2021-03-15 08:00 | NUR ---
ASSESSMENT DONE. VERY HYPOACTIVE BOWEL SOUNDS. COMPAZINE 5 MG GIVEN FOR NAUSEA. HAVING PAIN IN RLL. PATIENT IS RESTLESS.
--- NOTE | 2021-03-15 08:20 | NUR ---
MAG 2 MG HUNG PER ORDERS.
--- NOTE | 2021-03-15 08:50 | NUR ---
22 GA STARTED TO RIGHT HAND.
--- NOTE | 2021-03-15 09:00 | NUR ---
MAG INFUSED. KITCHEN HELP HANDYMAN HERE TO TALK WITH PATIENT.
--- NOTE | 2021-03-15 09:20 | NUR ---
TO OR VIA STRETCHER FOR COLONOSCOPY.
--- NOTE | 2021-03-15 10:15 | NUR ---
RETURN TO CCU AT 1015. PATIENT IS AWAKE AND ALERT. IVF NOW INFUSING AT 125 ML/HR. XRAY OF ABD PENDING. PATIENT DENIES PAIN OR NAUSEA AT THIS TIME.
--- NOTE | 2021-03-15 10:20 | NUR ---
ROUTINE MEDICATIONS GIVEN. PATIENT WILL BE TRANSFERRED TO MEDICAL FLOOR SOON.
--- NOTE | 2021-03-15 10:31 | NUR ---
ABD XRAY DONE. FRIEND IS IN ROOM.
--- NOTE | 2021-03-15 11:00 | NUR ---
REPORT TO MED-SURG.
--- NOTE | 2021-03-15 11:36 | NUR ---
03/15/21 1136 Sheets,Rona 0951 PT ARRIVED TO CCU ROOM 129 WITH ORAL AIRWAY IN PLACE. RESP EVEN AND UNLABORED. VSS. PT WAKES TO TACTILE STIMULI AND ORAL AIRWAY REMOVED. PT REORIENTED TO PACU AND IS ENCOURAGED TO DEEP BREATHE. 0952 O2 MASK REMOVED. PLAN OF CARE DISCUSSED. 1010 PT MOVED HERSELF TO BED AND COUGHING AND O2 DECREASED TO MID 80S. O2 NC PLACED AND DEEP BREATHING ENCOURAGED. O2 INCREASED TO MID 90S. 1015 REPORT TO CCU RN AND PT FRIEND AT BEDSIDE. HOB INCREASED AND PT ASKING FOR SIPS OF WATER, CCU RN AWARE.
--- NOTE | 2021-03-15 11:40 | NUR ---
MORPHINE GIVEN 4 MG. AFTER MORPHINE GIVEN, PATIENT NAUSEATED. REQUESTED ZOFRAN, UNABLE DUE TO TIME ANS PATIENT RECIEVED ZOFRAN IN OR.
--- NOTE | 2021-03-15 11:45 | NUR ---
TO MED-SURG VIA BED.
--- NOTE | 2021-03-15 12:16 | NUR ---
PATIENT ARRIVED TO MED SURG ROOM 122 VIA BED FROM CCU. PATIENT REPORTS VERTIGO AT BASELINE, IS ORIENTED AND ABLE TO USE CALL LIGHT. FRIEND IS IN ROOM AT THIS TIME. IVF INFUSING TO RIGHT HAND IV. LAB IN TO REDRAW MG. PATIENT UP TO COMMODE WITH STANDBY ASSIST, PATIENT DID ENDORSE BEING DIZZY AND NAUSEATED.
--- NOTE | 2021-03-15 15:09 | NUR ---
CALL FROM DR. WOMACK. MORNING MG AND PHOS ADDED TO LABS.
--- NOTE | 2021-03-15 18:44 | NUR ---
PATIENT WITH NEW #22 TO LEFT AC, IV FLUID RESUMED. 1 MG IV DILAUDID GIVEN FOR 10/10 ABD PAIN.
--- NOTE | 2021-03-15 19:45 | NUR ---
IN TO SEE RESIDNET, FRIEND AT THE BEDSIDE. NO NEEDS OR REQUESTS AT THIS TIME. CALL LIGHT IN REACH.
--- NOTE | 2021-03-15 20:08 | NUR ---
PATIENT WAS UP TO BEDSIDE COMMODE SBA. PATIENT IS BACK IN BED. PATIENT ASKED FOR PAIN MEDS. PRIMARY HELICOPTER [employer] [place] NOTIFIED. PATIENT'S FRIEND IS IN THE ROOM. NO OTHER NEEDS AT THIS TIME.
--- NOTE | 2021-03-15 20:45 | NUR ---
IN TO SEE PT. PT WITH COMPLAINTS OF 10/10 PAIN TO ABD. PRN DILAUDID GIVEN PER PT REQUESTS. PT ALERT AND OREITNED X 3. FRINED AT THE BEDSIDE. SCHEDULED MEDICATIONS GIVEN PER ORDER. ASSESSMENT COMPLETED. I AND O'S COMPLETED. FRESH WATER, WARM BLANKETS, AND EXTRA PILLOWS PROVIDED. VS COMPLETED, COOL WASH CLOTH PROVIDED PER PT REQUEST. PT WIITH C/O NAUSEA, PRN ZOFRAN GIVEN PER REQUEST. PT ENCOURAGED TO USE IS WHILE AWAKE. PT VERBALIZED UNDERSTANDING AND DEMONSTRATION OF IS USE. NO OTHER NEEDS OR REQUESTS AT THIS TIME. CALL LIGHT IN REACH.
--- NOTE | 2021-03-15 22:05 | NUR ---
in to see pt. pt continues to have nausea and emesis 100ml. prn compazine given per order. pt alert and oreitned x 3, friend remains at the bedside. pt reports pain has decreased 7/10 after prn dilaudid. no other needs or concerns at this time. call light in reach.
--- NOTE | 2021-03-15 22:36 | NUR ---
PT CONTINUES TO HAVE NAUSEA WITH EMESIS. CALL MADE TO DR. BRADLEY, NEW ORDER RECIEVED TO GIVE ANOTHER 4MG ZOFRAN IV NOW. ORDER UPDATED. PT UPDATED ON PLAN OF CARE.
--- NOTE | 2021-03-15 23:11 | NUR ---
IN TO SEE PT, PT GIVEN ONE TIME ORDER 4MG IV ZOFRAN. PT C/O 12/21 ABD PAIN. PT GIVEN 1 MG DILAUDID PRE REQUEST. EMESIS 100ML GREEN. MINT TEA, TOOTHBRUSH AND TOOTHPAST PROVIDED PER PT REQUEST. FRESH ICE PACK PROVIDED. NO OTHER NEEDS OR REQUEST AT THIS TIME. CALL LIGHT IN REACH.
--- NOTE | 2021-03-16 00:20 | NUR ---
IN TO SEE PT, PT REPORTS 10/10 HEADACHE AND ABD PAIN. PT STATES "IT FEELS LIKE A MIGRAINE." PT DENIES LIGHT SENSITIVITY OR NOISE SENSITIVITY. PT REPORTS MOVEMENT MAKES HER NAUSEA WORSE. PT STATED " I WAS ABLE TO TAKE A LITTLE NAP." PT TOOK ACCEPTED A SMALL SIP OF MINT TEA AT THE BEDSIDE. PT REPORTS NO RELIEF TO ABD PAIN WITH ICE PACK. 1 MG DILAUDUD GIVEN PER REQUEST. NO OTHER NEEDS OR REQUESTS AT THIS TIME. FRIEND REMAINS AT THE BEDSIDE. CALL LIGHT IN REACH.
--- NOTE | 2021-03-16 01:01 | NUR ---
IN TO CHECK ON PT. PT RESTING WITH EYES CLOSED. RR 16. CALL LIGHT IN REACH.
--- NOTE | 2021-03-16 02:45 | NUR ---
IN TO CHECK ON PT, ASSESSMENT DUE. PT WITH C/O 7/10 PAIN TO HEAD AND ABD, GIVEN 1MG DILAUDED PER ORDER. PT WITH C/O CONTINUED NAUSEA AFTER WAKING WITH MOVEMENT. SAMLL AMOUNT OF GREEN EMESIS NOTED. PRN ZOFRAN GIVEN PER ORDER. PT ASSISTED TO BSC, BACK TO BED. I AND O'S DOCUMENTED. PT SITTING IN BED WITH HOB AT 50 DEGREES. NO OTHER NEEDS OR REQUESTS AT THIS TIME. CALL LIGHT IN REACH.
--- NOTE | 2021-03-16 04:21 | NUR ---
IN TO SEE PT, PT CONTINUES TO HAVE NAUSEA WITH 100MLS GREEN EMESIS. PRN COMPAZINE GIVEN PER ORDER. PT REPORTS PAIN 10/10 TO HEAD AND ABD, PRN DILAUDID GIVEN PER REQUEST. NO OTHER NEEDS OR REQUESTS AT THIS TIME. CALL LIGHT IN REACH.
--- NOTE | 2021-03-16 05:26 | NUR ---
PT ALERT AND OREITNED X 3. MULTIPLE EPISODES OF NAUSEA WITH EMESIS. PT GIVEN COMPAZINE X 2, AND ZOFRAN X 3 DURING SHIFT. PAIN 7-10/10 TO HEAD AND ABD, GIVEN DILAUDID X 4 DURING SHIFT PER ORDER. TOLERATED PO SCHEDULED MEDICATIONS EARLY IN SHIFT. NO PO INTAKE DURING SHIFT. IVF CONTINUED PER ORDER. IV FLUSHING WELL, NO S/S OF PHELIBITIS OR INFILTRATION. 1 PERSON ASSIT TO BCS. CONTINUES TO HAVE LIQUID STOOLS. UO ADEQUATE. HYPOACTIVE BT, WITH ABD TENDERNESS. USING IS AT BEDSIDE TOLERATED WHILE AWAKE. SCATTERED BRUISING TO BUE.CL DIET. 1L O2. LABS THIS AM. FLAGYL. BS 112/122, NO SSI NEEDED.
--- NOTE | 2021-03-16 05:54 | NUR ---
IN TO CHECK ON PT, VS OBTAINED. I AND O'S COMPLETED. LAB IN TO DRAW MORNING LABS. PT REMIANS NAUSEATED WITH 25ML GREEN EMESIS. O2 86-92 ON RA. 1 LNC APPLIED, O2 INCREASED TO 90. OXYGEN INCREASED TO 2 LNC, O2 92- 98. PT RESTING, WITH HOB ELEVATED 32 DEGREES. NO NEEDS OR REQUESTS AT THIS TIME. CALL LIGHT IN REACH.
--- NOTE | 2021-03-16 06:35 | OR ---
[facility] [address] [place], [place] [address] Signed DATE OF OPERATION: 03/15/2021 SURGEON: Octavio Womack MD PREOPERATIVE DIAGNOSES: 1. Bloody diarrhea. 2. Right-sided abdominal pain. 3. Anemia. 4. Right-sided colitis. 5. Diverticulosis. 6. Irritable bowel syndrome. POSTOPERATIVE DIAGNOSES: 1. Moderate internal and external hemorrhoids. 2. Ischemic colitis from cecum to 70 cm with a clip and tattoo. 3. Clip at the cecum. 4. Moderate sigmoid diverticulosis with angulation. PROCEDURES: Colonoscopy with cold biopsies of the terminal ileum, cecum, and right colon, 70 cm and clip at the cecum, 70 cm and tattoo at 70 cm. ESTIMATED BLOOD LOSS: None. INDICATIONS: Luz Maria is a 65-year-old obese diabetic female, who presented with three days of right flank and right-sided abdominal pain. She had anorexia, bloody diarrhea, and nausea. In the emergency room, she was already little anemic, that is worsened with IV hydration. Lactic acid was normal, but her white count was elevated. She had a negative Cologuard test in March 2020. She thinks her last colonoscopy was over 10 years ago in [place], [place]. A CT scan showed what probably is right-sided ischemic colitis extending to the mid transverse colon. She has diverticulosis. No significant atherosclerosis of the celiac trunk in the superior mesenteric artery. She was admitted to the Internal Medicine Service and hydrated and started on Cipro and Flagyl with pain control. Overall, she has improved. White count is down to normal. Of course, the hemoglobin is dropped a bit with hydration. Abdominal pain is just slightly improved. I had met with Luz Maria here in the hospital, and overall she felt she could tolerate a liquid bowel prep. She actually did pretty well with that yesterday. We had reviewed colonoscopy in detail. She understands there is risk including, but not limited to gas Electronically Signed By: OCTAVIO WOMACK MD 03/16/21 0635 PATIENT NAME: LUZ MARIA LOCKWOOD OPERATIVE REPORT DATE OF : 53 REPORT #: [id number] PHYSICIAN: OCTAVIO WOMACK MD PCP: PEACE NOYOLA MD REPORT IS CONFIDENTIAL AND NOT TO BE RELEASED WITHOUT AUTHORIZATION [facility] [address] [place] [id number] Signed bloating, crampy abdominal pain, bleeding, perforation requiring surgery, and missed diagnosis. She also understands the need for monitored anesthesia care. Given her body habitus along with her significant medical issues and her acute situation. She had expressed understanding and wished to proceed. DESCRIPTION OF PROCEDURE: Luz Maria was taken into our endoscopy suite and placed in the left lateral decubitus position. She was given monitored anesthesia care with propofol per our nurse coil cleaner. A digital rectal exam was performed. She does have moderate external hemorrhoids. She had good sphincter tone. No masses. The adult colonoscope was introduced and slowly advanced through her angulated sigmoid colon. It took some extra-sedation abdominal compression in order to advance the scope through this area. She does have moderate left and sigmoid colon diverticulosis. Once above the sigmoid colon, it opened up nicely, which was around 70 cm, where we encountered the first areas of ischemia. The ischemia worsened as we approached the right colon and the cecum. We could see the appendiceal orifice. We placed a clip next to it. We fortune enough to pass the scope down into the terminal ileum, which appeared quite healthy. We took a biopsy of the terminal ileum. The scope was withdrawn further. We took additional biopsies as we went in the right colon and then at 70 cm. We taken multiple pictures throughout for photodocumentation. Her prep done quite good. We put a clip at 70 cm. We are going to take an x-ray in recovery room. We placed a tattoo at 70 cm, but some of that may have gone transmural. The rest of the colon appeared quite healthy including left colon, sigmoid colon, and rectum. Upon retroflexion of scope, there was no additional pathology that we could see above the anal canal. After this, the gas was suctioned out. The colonoscope removed. Luz Maria tolerated the procedure quite well. RECOMMENDATIONS: Luz Maria will be returned to her ICU bed on Internal Medicine Service. We will obtain an x-ray to locate the two clips. We will review the findings with Luz Maria as well as Internal Medicine Service. Octavio Womack MD ALB/MODL /[id number] Electronically Signed By: OCTAVIO WOMACK MD 03/16/21 0635 PATIENT NAME: LUZ MARIA LOCKWOOD OPERATIVE REPORT DATE OF : 53 REPORT #: [id number] PHYSICIAN: OCTAVIO WOMACK MD PCP: PEACE NOYOLA MD REPORT IS CONFIDENTIAL AND NOT TO BE RELEASED WITHOUT AUTHORIZATION [facility] [address] [place], [place] [address] Signed cc: Octavio Womack MD Patient Chart Peace Noyola MD Copies: OCTAVIO WOMACK MD ~ Electronically Signed By: OCTAVIO WOMACK MD 03/16/21 0635 PATIENT NAME: LUZ MARIA LOCKWOOD OPERATIVE REPORT DATE OF : 53 REPORT #: [id number] PHYSICIAN: OCTAVIO WOMACK MD PCP: PEACE NOYOLA MD REPORT IS CONFIDENTIAL AND NOT TO BE RELEASED WITHOUT AUTHORIZATION
--- NOTE | 2021-03-16 06:54 | NUR ---
IN TO SEE PT, DR. WOMACK IN TO DO ROUNDS. PT UPDATED ON PLAN OF CARE. PT CONTINUES TO HAVE PAIN TO ABD AND HEAD 12/21, 650 MG TYLENOL GIVEN PER DR. WOMACK. PT CONTINUES TO HAVE NAUSEA AND EMESIS. NO OTHER NEEDS OR REQUESTS AT THIS TIME. CALL LIGHT IN REACH.
--- NOTE | 2021-03-16 08:42 | NUR ---
zOFRAN 4MG IVP ADMIN FOR REPORTS OF NAUSEA.
--- NOTE | 2021-03-16 09:10 | NUR ---
PATIENT UP TO COMMODE TO . PATIENT REPORTED LEFT ARM IV "HURT" UPON INSPECTION, IV IS INFILTRATED AND MODERATE RED SWELLING ABOVE LEFT IV SITE. DR. BRADLEY NOTIFIED, ADVISED CONSULTING WITH DR. WOMACK. CALL TO DR. WOMACK AND HE ADVISED A MIDLINE IV FOR NOW.
--- NOTE | 2021-03-16 10:00 | NUR ---
Left AC iv site infiltrated. Left arm wrapped with warm blanket then elevated. New IV site needed, staff attempting at this time. Patient has had multiple IV sites infiltrate this visit per report. Provider updated. Patient reports she is nauseated. Will admin medication once IV site is placed. Patient's hob elevated. Call light within reach.
--- NOTE | 2021-03-16 10:10 | NUR ---
COmpozine 5mg IVP admin for nausea.
--- NOTE | 2021-03-16 10:30 | NUR ---
INTO PATIENT ROOM TO COMPLETE ASSESMENT. PATIENT SITTING UP IN BED AFTER IV START. PATIENT STATES SHE LIVES IN AN APARMENT AND THAT HER BROTHER GABRIELLA IS CURRENTLY STAYING WITH HER. PATIENT STATES THAT GABRIELLA WILL BE ABLE TO PROVIDE HELP IF NEEDED AT DISCHARGE. PATIENT DOES HAVE A WALKER AT HOME WHICH SHE USES PRN DUE TO RIGHT HIP PAIN. PATIENT FRIEND JOHANNE DELGADO [phone] IS AT THE BEDSIDE AND STATES HE IS A GOOD EMERGENCY CONTACT FOR THE PATIENT IF NEEDED. PATIENT STATES SHE HAS HAD SOME ISSUES WITH FINANCIAL NEEDS IN THE PASSED AND HAS USED [employer]. PATIENT DENIES FINANCIAL NEEDS AT THIS TIME. PATIENT C/O NAUSEA. PER SOPHIA NOVA PATIENT HAS BEEN GIVEN COMPASINE. PATIENT AWARE. DURING THE END OF CONVERSATION PATIENT APPEARS TO BE DROWSY FROM RECENT MEDICATION. WILL CONTINUE TO FOLLOW UP WITH PATIENT DURING HER STAY.
--- NOTE | 2021-03-16 10:46 | NUR ---
PATIENT SITTING UP IN BED AT THIS TIME. VITALS AND I&O'S CHARTED. CALL LIGHT IN REACH. NO FURTHER NEEDS AT THIS TIME.
--- NOTE | 2021-03-16 11:15 | NUR ---
MIDLINE INSERTION NOTE PT'S LEFT ARM EXAMINED SHE HAS FLUIDS INFUSING ON HER RIGHT ARM. PT'S BASILIC AND BRACHIAL VEINS, BRACHIAL ARTERY VIEWED. CEPHALIC WAS NOT FOUND. PT'S BASILIC VEIN WAS ACCESSED THE BRACHIAL ARTERY AND VEIN ARE OVERLAPPING. THE BASILIC VEIN WAS LARGER THAN 6 FR ACCORDING TO SITE RITE 8. THE VEIN COLLAPSED EASILY. VEIN ACCESSED ON THE FIRST ATTEMPT. BLOOD RETURNED AND FLUSHED EASILY. PT REPORTS NO PAIN WITH INSERTION OR FLUSHING. REPORT GIVEN.
--- NOTE | 2021-03-16 12:15 | NUR ---
Dilaudid 0.5mg ivp admin for reports of head and abd pain, 09/20.
--- NOTE | 2021-03-16 13:10 | NUR ---
Patient assisted to bedside commode then back to bed. Patient voided q/s. Patient reports she is nauseated and painful in her abdomen. Pain medication and antiemetics in use. Patient provided with damp cool compress and encouraged to rest. Patient states she will call staff if she has needs.
--- NOTE | 2021-03-16 14:43 | NUR ---
DILAUDID 0.5MG IVP AND ZOFRAN 4MG IVP ADMIN FOR ABD PAIN AND NAUSEA. PATIENT ASSISTED TO BEDSIDE COMMODE FOR VOID THEN BACK TO BED. PATIENT DENIES NEEDS. PERSONAL SUPPLIES AND CALL LIGHT WITHIN REACH.
--- NOTE | 2021-03-16 15:32 | NUR ---
Patient is in bed with call light. Patient asked for pain meds for her stomach. Patient has a headache. RN has been notified.
--- NOTE | 2021-03-16 15:43 | NUR ---
Provided patient with warm pack for her stomach pain per her request.
--- NOTE | 2021-03-16 17:00 | NUR ---
Tylenol 650mg po admin for reports of 7/10 head pain. Patient reports her abd pain and nausea "are terrible". patient reports she feels miserable since she arrived here. Education provided regarding plan of care and current medications. Patient receptive to plan of care. Warm pack provided to patient. Patient a bit forgetful with medication administration times, reinforced last med times with patient.
--- NOTE | 2021-03-16 17:59 | NUR ---
Phenergan 12.5mg IV admin via pump per protocol for reports of nausea.
--- NOTE | 2021-03-16 17:59 | NUR ---
PATIENT SITTING UP IN BED, RN IN ROOM. VITALS AND I&O'S CHARTED. CALL LIGHT IN REACH. NO FURTHER NEEDS AT THIS TIME.
--- NOTE | 2021-03-16 19:00 | NUR ---
bedside report received from offgoing rn. pt sitting in bed. c/o nausea and abd pain. prns administered by offgoing rn.
--- NOTE | 2021-03-16 19:22 | NUR ---
Toradol 30mg ivp and compazine 10mg ivp admin for nausea and abd pain.
--- NOTE | 2021-03-16 21:00 | NUR ---
PT ASSESSMENT COMPLETE. PT RESTING IN BED WITH EYES CLOSED. WAKES EASILY TO VOICE. PT STATES THAT PAIN IS IMPROVED, HEAD ACHE IS GONE. RATES PAIN 6/10. PT REPORTS PAIN TO RLQ. STATES THAT IF SHE WERE ABLE TO HAVE A BM SHE THINKS THIS MAY IMPROVE PAIN. PT UP TO BSC WITH SBA. TOELRATED WELL. STATES THAT SMALL LIQ BM INDEED HELPED ALLEVIATE PAIN. PT DENIES NAUSEA OR SOB. ABD TENDER TO PALPATION. BT'S ACTIVE. IV AND MIDLINE SL, FLUSHED. WNL, PATENT. GOOD BLOOD RETURN NOTED TO BOTH. FRESH ICE WATER PROVIDED. PT DENIES FURTHER NEEDS AT THIS TIME. CALL LIGHT IN REACH.
--- NOTE | 2021-03-16 21:30 | NUR ---
PT CALLED. BSC, INDEPENDENTLY TRANSFER SELF ON AND OFF. BED STRAIGHTENED, LINEN CHANGED. INDEPENDENTLY INTO BED. APPROX 30 ML STOOL LIQUID. NO VOID. CALL LIGHTS WITHIN REACH.
--- NOTE | 2021-03-16 22:30 | NUR ---
PT RESTING IN BED WITH EYES CLOSED. RESPIRATIONS EVEN AND UNLABORED. PT APPEARS TO BE SLEEPING. CALL LIGHT IN REACH.
--- NOTE | 2021-03-17 00:09 | NUR ---
PT UTLIZES CALL LIGHT, REPORTS HEADACHE. PT STATES THAT IT FEELS LIKE A MIGRAINE. RATES PAIN 9/10. PRN ADMINISTERED. SEE EMAR. PT DENIES FURTHER NEEDS. CALL LIGHT IN REACH.
--- NOTE | 2021-03-17 00:15 | NUR ---
PT UTLIZES CALL LIGHT, STATES THAT IV WAS PULLED OUT. FINGERPRINT CLASSIFIER TO ROOM. PERIPHERAL IV FROM R HAND FOUND LYING ON BEDSIDE TABLE. TIP INTACT. GAUZE AND COBAN APPLIED TO PREVIOUS IV SITE. PT DENIES FURTHER NEEDS. CALL LIGHT IN REACH.
--- NOTE | 2021-03-17 05:06 | NUR ---
PT ASSESSMENT COMPLETE. PT REPORTS HEADACHE PAIN, RATES 6/10. PRN ADMINISTERED SEE EMAR. PT STATES NAUSEA IS WELL CONTROLLED AT THIS TIME. DENIES SOB. BT'S ACTIVE. ABD TENDER TO PALPATION.MIDLINE FLUSHED WITH 10 ML NS. WNL, PATENT. ARM CIRCUM 35CM. PT UP TO BSC WITH SBA TOLERATED WELL. PT REPORTS THAT SHE IS FEELING MUCH IMPROVED FROM PREVIOUS NIGHT. PT DENIES FURTHER NEEDS AT THIS TIME. CALL LIGHT IN REACH.
--- NOTE | 2021-03-17 06:55 | NUR ---
MD TO ROOM, PT UPDATED REGARDING CURRENT ILLNESS AND POC. PT DENIES NEEDS AT THIS TIME. CALL LIGHT IN REACH.
--- NOTE | 2021-03-17 07:34 | NUR ---
Patient sleeping, eyse closed, respirations even and non labored. Patient has no distress. Personal supplies and call light within reach.
--- NOTE | 2021-03-17 08:37 | NUR ---
Patient up in chair this morning, no distress. Per pt she is feeling much better today. Patient denies nausea this morning and reports her abdominal pain is improving. Patient has no current needs. Breakfast ordered. Magnesium infusing per provider order. Patient encouraged to call staff if she has needs.
--- NOTE | 2021-03-17 09:49 | NUR ---
PATIENT UP FROM CHAIR TO BED, SBA. LINENS CHANGED. FRESH WATER GIVEN. VITALS AND I&O'S CHARTED. CALL LIGHT IN REACH. NO FURTHER NEEDS AT THIS TIME.
--- NOTE | 2021-03-17 12:00 | NUR ---
Toradol 30mg IVP admin for reports of 7/10 abd pain.
--- NOTE | 2021-03-17 12:30 | NUR ---
Spoke with Elvia, who I am familiar with. She cont. to live in an apartment in [facility]. Housing has an elevator. Pt has nebulizer, walker, CPAP, and shower chair. Pt drives when the weather is nice. She will use a taxi due to the poor weather conditions at this time. 02 is now off. Friend is helping her remove tangles from her hair. Pt plans on dc to home when medically cleared.
--- NOTE | 2021-03-17 12:54 | NUR ---
Patient sitting up in bed visiting with her friend. Patient tolerated a shower well this morning. No distress at this time. Personal supplies and call light within reach.
--- NOTE | 2021-03-17 14:35 | PATH ---
[facility] [address] [place], [place] [address] Signed SPECIMEN(S): A CECUM BIOPSY SPECIMEN(S): B TERMINAL ILEUM BIOPSY SPECIMEN(S): C MID ASCENDING/RIGHT COLON BIOPSY SPECIMEN(S): D COLON BIOPSY AT 70 CM SPECIMEN SOURCE: A. CECUM BIOPSY B. TERMINAL ILEUM BIOPSY C. MID ASCENDING/RIGHT COLON BIOPSY D. COLON BIOPSY AT 70 CM CLINICAL HISTORY: Right sided colitis, diverticulosis, anemia. Post op: Diverticulosis, colitis, internal and external hemorrhoids. FINAL PATHOLOGIC DIAGNOSIS: A. Cecum, biopsy: - Necrotic colonic mucosa with focal lamina propria hyalinization and overlying fibrinopurulent exudate. - Negative for dysplasia or malignancy. - See comment. B. Terminal ileum, biopsy: - Ileal mucosa with no histopathologic abnormality. - Negative for active inflammation or granulomas. - Negative for dysplasia or malignancy. C. Colon, mid ascending, biopsy: - Fibrinopurulent exudate and rare detached benign colonic glands. - No intact mucosa present for evaluation. D. Colon, 70 cm, biopsy: - Necrotic colonic mucosa with overlying fibrinopurulent exudate. - Negative for dysplasia or malignancy. - See comment. COMMENT: The minute portion of intact colonic mucosa in the cecum biopsy demonstrates lamina propria hyalinization and atrophic microcrypts; the areas of necrotic mucosa in the cecum and 70 cm biopsy demonstrate full-thickness necrosis. There are no architectural changes, granulomas, or other features to suggest inflammatory bowel disease. Overall, ischemic colitis is favored but the differential diagnosis includes infectious etiologies (pseudomembranous colitis). PATIENT NAME: TIM LOCKWOOD PATHOLOGY DATE OF : 53 REPORT #: [id number] PHYSICIAN: BREANNA COTTON PCP: LELAND NOYOLA MD REPORT IS CONFIDENTIAL AND NOT TO BE RELEASED WITHOUT AUTHORIZATION [facility] [address] [place], [place] [address] Signed NAL:cml:[id number] MICROSCOPIC EXAMINATION: Histologic sections of all submitted blocks are examined by light microscopy. These findings, together with the gross examination, support the pathologic diagnosis. GROSS DESCRIPTION: Four specimens are received in four containers, labeled "DP." A. The specimen, labeled "DP, cecum biopsy," is received in formalin and consists of one funk soft tissue fragment that measures 0.2 cm in greatest dimension. The specimen is entirely submitted in cassette (A1). B. The specimen, labeled "DP, terminal ileum biopsy," is received in formalin and consists of one funk soft tissue fragment that measures 0.2 cm in greatest dimension. The specimen is entirely submitted in cassette (B1). C. The specimen, labeled "DP, mid ascending colon biopsy," is received in formalin and consists of one funk soft tissue fragment that measures 0.1 cm in greatest dimension. The specimen is entirely submitted in cassette (C1). D. The specimen, labeled "DP, colon biopsy at 70 cm," is received in formalin and consists of one funk soft tissue fragment that measures 0.2 cm in greatest dimension. The specimen is entirely submitted in cassette (D1). JS (under the direct supervision of a pathologist) The Gross Description was prepared using a voice recognition system. The report was reviewed for accuracy; however, sound-alike word errors, addition and/or deletions may occur. If there is any question about this report, please contact Client Services. PERFORMING LABORATORY: The technical component was performed by [facility], [address] [place] [id number] (Idea Man: Shalonda Sepulveda MD; CLIA# [id number]). Professional interpretation was performed by [facility], [facility], [address] [address] (CLIA# [id number]). Diagnostician: Emmy Mendoza MD Pathologist Electronically Signed 03/17/2021 PATIENT NAME: TIM LOCKWOOD PATHOLOGY DATE OF : 53 REPORT #: [id number] PHYSICIAN: BREANNA PATHOLOGY PCP: LELAND NOYOLA MD REPORT IS CONFIDENTIAL AND NOT TO BE RELEASED WITHOUT AUTHORIZATION [facility] [address] [place], [place] [address] Signed Copies: ~ PATIENT NAME: TIM LOCKWOOD PATHOLOGY DATE OF : 53 REPORT #: [id number] PHYSICIAN: [facility] PCP: LELAND NOYOLA MD REPORT IS CONFIDENTIAL AND NOT TO BE RELEASED WITHOUT AUTHORIZATION
--- NOTE | 2021-03-17 15:55 | NUR ---
Tylenol 500mg po admin for reports of 4/10 abd pain. Patient sitting in bed watching tv and visiting with her friend.
--- NOTE | 2021-03-17 17:54 | NUR ---
TORADOL 30MG IVP ADMIN FOR REPORTS OF 6/10 HEAD/STOMACH PAIN.
--- NOTE | 2021-03-17 19:59 | NUR ---
RECEIVED REPORT FROM DAY SHIFT RN. PATIENT IS RESTING IN BED. PATIENT DENIES ANY NEEDS. CALL LIGHT IN REACH.
--- NOTE | 2021-03-17 21:02 | NUR ---
PATIENT ASSEMENT COMPLETED. VITALS TAKEN AND RECORDED. INTAKE AND OUTPUT RECORDED. PATIENTS SCHEDULED MEDICATIONS GIVEN PER ORDER. PATIENT REPORTS A HEADACHE. PRN TYLENOL GIVEN PER ORDER. PATIENTS MIDLINE HAS BLOOD RETURN, FLUSHES WELL, AND IS SL PER ORDER. PATIENT IS ON RA. PATIENT PROVIDED WITH FRESH ICE WATER. PATIENT DENIES ANY NEEDS. CALL LIGHT IN REACH.
--- NOTE | 2021-03-17 23:05 | NUR ---
PATIENT REPORTS NAUSEA. PATIENT GIVEN PRN NAUSEA MEDICATION PER ORDER. PATIENT UP TO THE RESTROOM. PAITENT ABLE TO VOID. PATIENT IS BACK IN BED RESTING. PATIENT DENIES ANY FURTHER NEEDS. CALL LIGHT IN REACH.
--- NOTE | 2021-03-18 00:05 | NUR ---
PATIENT REPORTS A HEADACHE. PRN MEDICATION GIVEN PER ORDER. PATIENT DENIES ANY NAUSEA. PATIENT DENIES ANY FURTHER NEEDS. CALL LIGHT IN REACH.
--- NOTE | 2021-03-18 01:12 | NUR ---
PATIENT IS RESTING IN BED WITH EYES CLSOED, RR 17. CALL LIGHT IN REACH.
--- NOTE | 2021-03-18 02:50 | NUR ---
PATIENT REQUEST MEDICATION FOR MIGRAINE. PRN MEDICATION GIVEN PER ORDER. PATIENT ALSO REPORTS NAUSEA. PATIENT GIVEN PRN NAUSEA MEDICATION. PRN NAUSEA MEDICATION GIVEN PER ORDER. PATIENT DENIES ANY FURTHER NEEDS. CALL LIGHT IN REACH.
--- NOTE | 2021-03-18 04:05 | NUR ---
PATIENT IS RESTING IN BED WITH EYES CLOSED, RR 16. CALL LIGHT IN REACH.
--- NOTE | 2021-03-18 06:02 | NUR ---
VITALS TAKEN AND RECORDED. PATIENT UP TO THE BR A SBA. PATIENT VOIDED. PATIENT IS BACK IN BED RESTING. INTAKE AND OUTPUT RECORDED. PATIENT REPORTS A HEADACHE THAT IS 6/10 PAIN. PATIENT GIVEN PRN TYLENOL PER ORDER. PATIENTS ICE WATER REFILLED. PATIENT DENIES ANY FURTHER NEEDS. CALL LIGHT IN REACH.
--- NOTE | 2021-03-18 07:05 | NUR ---
Report received from Suma NOVA. Pt resting in bed with eyes closed, respirations even and unlabored, no needs at this time. Will continue plan of care.
--- NOTE | 2021-03-18 07:58 | NUR ---
PT SITTING UP IN BED WATCHING TV. PT ACCEPTED WARM WASHCLOTH FOR FACE. BROUGHT WARM BLANKET FOR PT'S CHAIR. PT NOW IN CHAIR AWAITING BREAKFAST. ROOM TIDIED. CALL LIGHT WITHIN REACH, NO FURTHER NEEDS AT THIS TIME.
--- NOTE | 2021-03-18 08:31 | NUR ---
Medications administered and assessment complete. Pt sitting up to chair, states no pain or nausea at this time. Midline IV flushes and WNL. Pt A+O, in good spirits and no needs reported. Takes pills well whole with water. Call light in reach
--- NOTE | 2021-03-18 09:34 | NUR ---
PT IS BACK IN BED WATCHING TV. FRESH WATER BROUGHT. CALL LIGHT WITHIN REACH, NO FURTHER NEEDS AT THIS TIME.
--- NOTE | 2021-03-18 10:55 | NUR ---
PRN toradol administered for pain at this time, pt is in good spirits, talkative with visitor and nurses. No other needs at this time.
--- NOTE | 2021-03-18 12:50 | NUR ---
PT REFUSED SHOWER. AVTAR CARLOS NOTIFIED.
[2021-03-18] MEDS ORDERED: AMOX TR-K CLV1 EAC1 PO (13:24)
--- NOTE | 2021-03-18 13:39 | NUR ---
PT SITTING ON EDGE OF BED, DRESSED IN OWN CLOTHES AND READY FOR D/C. EX IN ROOM. CALL LIGHT WITHIN REACH, NO FURTHER NEEDS AT THIS TIME.
[2021-03-19] MEDS ORDERED: ONDANSETRON ODT4 MG SL (23:47)
[2021-03-19] MEDS ORDERED: KETOROLAC TROME10 MG PO (23:47)
[2021-03-19] MEDS ORDERED: PROTONIX40 MG PO (23:47)
== END 2021-03-18 14:12 | disposition home or self-care (01) | DRG 395 ==
LOC: ED 12:02 → MS 16:46 → CCU 16:46 → MS 03-15 11:45
PROVIDERS: Colon & Rectal Surgery; ADMIT Internal Medicine; ATTEND Internal Medicine
PROC: 0DBB8ZX Excision of Ileum, Via Natural or Artificial Opening Endoscopic, Diagnostic (ICD-10-PCS; 2021-03-15)
PROC: 0DBH8ZX Excision of Cecum, Via Natural or Artificial Opening Endoscopic, Diagnostic (ICD-10-PCS; 2021-03-15)
PROC: 0DBK8ZX Excision of Ascending Colon, Via Natural or Artificial Opening Endoscopic, Diagnostic (ICD-10-PCS; principal; 2021-03-15 09:16)
DX: K55.9 Vascular disorder of intestine, unspecified (principal); Z20.822 Contact with and (suspected) exposure to COVID-19; K57.30 Diverticulosis of large intestine without perforation or abscess without bleeding; I95.9 Hypotension, unspecified; E83.42 Hypomagnesemia; I10 Essential (primary) hypertension; K64.8 Other hemorrhoids; K43.9 Ventral hernia without obstruction or gangrene; K40.90 Unilateral inguinal hernia, without obstruction or gangrene, not specified as recurrent; K64.4 Residual hemorrhoidal skin tags; Z71.6 Tobacco abuse counseling; E11.9 Type 2 diabetes mellitus without complications; F25.9 Schizoaffective disorder, unspecified; G43.909 Migraine, unspecified, not intractable, without status migrainosus; G89.4 Chronic pain syndrome; M79.7 Fibromyalgia; F32.A Depression, unspecified; F43.10 Post-traumatic stress disorder, unspecified; F17.210 Nicotine dependence, cigarettes, uncomplicated; Z90.49 Acquired absence of other specified parts of digestive tract; Z79.84 Long term (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 of oral 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 drugs; Z90.710 Acquired absence of both cervix and uterus; Z98.890 Other specified postprocedural states; Z98.51 Tubal ligation status; Z88.5 Allergy status to narcotic agent; Z88.8 Allergy status to other drugs, medicaments and biological substances; Z79.899 Other long term (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
CPT/HCPCS: 36569; 74018; 74177; 80048; 81001; 83605; 83690; 83735; 84100; 85025; 87040; 87045; 87493; 88305; 93005; 93010; 94760; 96375; 99285-25; C1751; C9113; C9803; J0744; J0780; J1170; J1885; J2270; J2405; J2550; J2704; J3475; J3480; J7030; J7120; U0003

== ENCOUNTER 2021-03-19 21:11 | Emergency (ER) | payer MEDICARE, OTHER ==
[~2021-03-19] VITALS: Ht 175.3 cm; Wt 101.2 kg
[~2021-03-19 21:11] MED LIST changes: +AMOX TR-K CLV1 EAC1 PO; +CYPROHEPTADINE H4 MG PO; +IBU-200200 MG PO; +MAGOX 400400 MG PO; +TYLENOL325 MG PO; +VITAMIN D325 MC2 PO
--- OUTSIDE RECORDS SUMMARY | 2021-03-19 21:14 | XMS ---
PreManage Notification: TIM LOCKWOOD [employer] Manager Events No recent Security Events currently on file CRITERIA MET - [facility] - Has Care Guidelines - [facility] - 2 Visits in 30 Days - PDMP CARE PROVIDERS SANJEEV BREAUX [facility] 05/23/2018-Current PHONE: Unknown LELAND NOYOLA [facility] 07/21/2020-Current PHONE: [phone] Guidelines Source: [facility] [place] Guidelines Date: 11/24/2020 Care Coordination: Mental health services provided by [facility].\T\nbsp;Please contact [facility] with mental health concerns.\T\nbsp; Axel/Chandan Caruso: [phone]\T\nbsp; Alex: [phone] Crisis: [phone] E.D. VISIT COUNT (12 MO.) [address] [facility] TOTAL 7 NOTE: Visits indicate total known visits. ED/UCC VISIT TRACKING (12 MO.) 03/19/2021 21:[address] [facility] [place] TYPE: Emergency COMPLAINT: - ABD PAIN, COLD SYMPTOMS 03/13/2021 12:03 [facility] [place] TYPE: Emergency [...] unspecified - Essential (primary) hypertension - Other skilled nursing (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 - detention (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 of oral 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 drugs - Type 2 diabetes mellitus without complications 07/27/2020 22:22 [facility] [place] TYPE: Emergency COMPLAINT: - BENT OVER AND INJURED LOWER BACK DIAGNOSES: - Essential (primary) hypertension - Exposure to other specified factors, initial encounter - Nicotine dependence, unspecified, uncomplicated - Other skilled nursing (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 - detention (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 of oral 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 drugs - [...] drugs, medicaments and biological substances - Other skilled nursing (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 - Diarrhea, unspecified - tank terminal gauger (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 of oral 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 drugs - Allergy status to narcotic agent - Unspecified abdominal pain - Type 2 diabetes mellitus without complications - Essential (primary) hypertension - Hypomagnesemia 07/07/2020 22:38 [facility] [place] TYPE: Emergency COMPLAINT: - BACK PAIN,NAUSEA DIAGNOSES: - detention (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 of oral 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 drugs - Allergy status to other drugs, medicaments and biological substances - Other termite helper (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 - Type 2 diabetes mellitus without complications - Essential (primary) hypertension - Allergy status to narcotic agent - Diverticulosis of intestine, part unspecified, without perforation or abscess without bleeding - Unspecified abdominal pain 06/24/2020 03:18 [facility] [place] TYPE: Emergency COMPLAINT: - RT FOOT PN DIAGNOSES: - Pain in right foot - Other skilled nursing (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 - Allergy status to other drugs, medicaments and biological substances - detention (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 of oral 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 drugs - Essential (primary) hypertension - Allergy status to narcotic agent - Type 2 diabetes mellitus without complications - Personal history of nicotine dependence INPATIENT VISIT TRACKING (12 MO.) 03/13/2021 16:[address] [facility] [place] TYPE: Medical Surgical COMPLAINT: - ISCHEMIC COLITIS DIAGNOSES: - Other hemorrhoids - detention (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 of oral 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 drugs - Hypomagnesemia - Nicotine dependence, cigarettes, uncomplicated - Tubal ligation status - Post-traumatic stress disorder, unspecified - Vascular disorder of intestine, unspecified - Other specified postprocedural states - Allergy status to narcotic agent - Essential (primary) hypertension - Unilateral inguinal hernia, without obstruction or gangrene, not specified as recurrent - Hypotension, unspecified - Migraine, unspecified, not intractable, without status migrainosus - Residual hemorrhoidal skin tags - DEPRESSION, UNSPECIFIED - Acquired absence of both cervix and uterus - Chronic pain syndrome - Diverticulosis of large intestine without perforation or abscess without bleeding - Acquired absence of other specified parts of digestive tract - Type 2 diabetes mellitus without complications - Fibromyalgia - Other termite helper (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 - Schizoaffective disorder, unspecified - Allergy status to other drugs, medicaments and biological substances - Ventral hernia without obstruction or gangrene - Tobacco abuse counseling [email or web address]
[2021-03-19] MEDS ORDERED: PROTONIX40 MG PO (23:47)
[2021-03-19] MEDS ORDERED: KETOROLAC TROME10 MG PO (23:47)
[2021-03-19] MEDS ORDERED: ONDANSETRON ODT4 MG SL (23:47)
== END 2021-03-20 00:19 | disposition home or self-care (01) ==
LOC: ED 21:11
DX: K55.9 Vascular disorder of intestine, unspecified (principal); I10 Essential (primary) hypertension; E11.9 Type 2 diabetes mellitus without complications; F43.10 Post-traumatic stress disorder, unspecified; I25.2 Old myocardial infarction; J45.909 Unspecified asthma, uncomplicated; I25.10 Atherosclerotic heart disease of native coronary artery without angina pectoris; F17.200 Nicotine dependence, unspecified, uncomplicated; Z88.5 Allergy status to narcotic agent; Z88.8 Allergy status to other drugs, medicaments and biological substances; Z79.899 Other long term (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; Z79.84 Long term (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 of oral 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 drugs
CPT/HCPCS: 81001; 85025; 96374; 96375; 99284-25; A9270; J1885; J2405

== ENCOUNTER 2021-04-02 11:30 | Inpatient (IN) | payer MEDICARE, OTHER ==
[~2021-04-02] VITALS: Ht 172.7 cm; Wt 100.6 kg
[~2021-04-02 11:30] MED LIST changes: +ONDANSETRON ODT4 MG SL; +PROTONIX40 MG PO
--- OUTSIDE RECORDS SUMMARY | 2021-04-02 11:32 | XMS ---
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 No recent Security Events currently on file CRITERIA MET - [facility] - 2 Visits in 30 Days - [facility] - Has Care Guidelines - PDMP CARE PROVIDERS SANJEEV BREAUX Family Medicine 05/23/2018-Current PHONE: Unknown LELAND ROSE Family [facility] 07/21/2020-Current PHONE: [phone] Guidelines Source[facility] Date: 11/24/2020 Care Coordination: Mental health services provided by [employer].\T\nbsp;Please contact [employer] with mental health concerns.\T\nbsp; Axel/Chandan Caruso: [phone]\T\nbsp; Alex: [phone] Crisis: [phone] Care History Medical/Surgical 03/23/2021 [facility] [place] - Patient is currently established with [facility]. If patient is seen in the ED during business hours. Please contact CHWs at [facility]. Care Recommendation: If this patient has had 5 or more Emergency Department visits in the last 12 months.\T\nbsp; Patient will require education on the scope and purpose of the ED as an acute care provider not a Primary Care Provider and should not be utilized for chronic conditions.\T\nbsp; These are guidelines and the provider should exercise clinical judgment when providing care. 03/22/2021 [facility] [place] Follow up with PCP Dr. Rose on 03/23/[address] Hopkins on 03/26/2021 [place] VISIT COUNT (12 MO.) 8 [facility]. TOTAL 8 NOTE: Visits indicate total known visits. ED/UCC VISIT TRACKING (12 MO.) 04/02/2021 11:[address] [facility] [place] TYPE: Emergency COMPLAINT: - ABDOMINAL PAIN 03/19/2021 21:11 [facility] [place] TYPE: Emergency COMPLAINT: - ABD PAIN, COLD SYMPTOMS DIAGNOSES: - Nicotine dependence, unspecified, uncomplicated - Essential (primary) hypertension - Unspecified asthma, uncomplicated - Allergy status to other drugs, medicaments and biological substances - Type 2 diabetes mellitus without complications - Unspecified abdominal pain - exterminator (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 of oral 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 drugs - Post-traumatic stress disorder, unspecified - Atherosclerotic heart disease of [place] coronary artery without angina pectoris - Vascular disorder of intestine, unspecified - Allergy status to narcotic agent - Old myocardial infarction - Other chcf (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 03/13/2021 12:03 [facility] [place] TYPE: Emergency [...] unspecified - Essential (primary) hypertension - Other exterminator (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 - skilled nursing (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 of oral 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 drugs - Type 2 diabetes mellitus without complications 07/27/2020 22:22 [facility] [place] TYPE: Emergency COMPLAINT: - BENT OVER AND INJURED LOWER BACK DIAGNOSES: - Essential (primary) hypertension - Exposure to other specified factors, initial encounter - Nicotine dependence, unspecified, uncomplicated - Other exterminator (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 - skilled nursing (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 of oral 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 drugs - [...] drugs, medicaments and biological substances - Other chcf (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 - Diarrhea, unspecified - skilled nursing (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 of oral 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 drugs - Allergy status to narcotic agent - Unspecified abdominal pain - Type 2 diabetes mellitus without complications - Essential (primary) hypertension - Hypomagnesemia 07/07/2020 22:38 [facility] [place] TYPE: Emergency COMPLAINT: - BACK PAIN,NAUSEA DIAGNOSES: - exterminator (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 of oral 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 drugs - Allergy status to other drugs, medicaments and biological substances - Other exterminator (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 - Type 2 diabetes mellitus without complications - Essential (primary) hypertension - Allergy status to narcotic agent - Diverticulosis of intestine, part unspecified, without perforation or abscess without bleeding - Unspecified abdominal pain 06/24/2020 03:18 [facility] [place] TYPE: Emergency COMPLAINT: - RT FOOT PN DIAGNOSES: - Pain in right foot - Other exterminator (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 - Allergy status to other drugs, medicaments and biological substances - exterminator (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 of oral 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 drugs - Essential (primary) hypertension - Allergy status to narcotic agent - Type 2 diabetes mellitus without complications - Personal history of nicotine dependence INPATIENT VISIT TRACKING (12 MO.) 03/13/2021 16:46 [facility] [place] TYPE: Medical Surgical COMPLAINT: - ISCHEMIC COLITIS DIAGNOSES: - Other specified postprocedural states - DEPRESSION, UNSPECIFIED - Other hemorrhoids - Diverticulosis of large intestine without perforation or abscess without bleeding - Migraine, unspecified, not intractable, without status migrainosus - Hypotension, unspecified - Chronic pain syndrome - Allergy status to other drugs, medicaments and biological substances - Schizoaffective disorder, unspecified - Unilateral inguinal hernia, without obstruction or gangrene, not specified as recurrent - Essential (primary) hypertension - Allergy status to narcotic agent - Tubal ligation status - Other chcf (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 - DEPRESSION, UNSPECIFIED - Vascular disorder of intestine, unspecified - Other specified postprocedural states - Residual hemorrhoidal skin tags - Post-traumatic stress disorder, unspecified - Tubal ligation status - Nicotine dependence, cigarettes, uncomplicated - Other hemorrhoids - Essential (primary) hypertension - Ventral hernia without obstruction or gangrene - Hypomagnesemia - skilled nursing (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 of oral 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 drugs - Fibromyalgia - Tobacco abuse counseling - Ventral hernia without obstruction or gangrene - Nicotine dependence, cigarettes, uncomplicated - Hypotension, unspecified - Unilateral inguinal hernia, without obstruction or gangrene, not specified as recurrent - exterminator (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 of oral 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 drugs - Post-traumatic stress disorder, unspecified - Allergy status to other drugs, medicaments and biological substances - Hypomagnesemia - Fibromyalgia - Schizoaffective disorder, unspecified - Other chcf (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 - Residual hemorrhoidal skin tags - Acquired absence of both cervix and uterus - Type 2 diabetes mellitus without complications - Tobacco abuse counseling - Acquired absence of other specified parts of digestive tract - Type 2 diabetes mellitus without complications - Migraine, unspecified, not intractable, without status migrainosus - Acquired absence of other specified parts of digestive tract - Diverticulosis of large intestine without perforation or abscess without bleeding - Chronic pain syndrome - Acquired absence of both cervix and uterus - Allergy status to narcotic agent [email or web address]
--- NOTE | 2021-04-02 19:59 | NUR ---
REPORT FROM SANTHOSH NOVA IN E.D., PT ALERT AND ORIENTED APPROPRIATE FOR ROOM 116 IT IS NOT IN DIRECT VIEW OF THE NURSES STATION.
--- NOTE | 2021-04-02 20:25 | NUR ---
pt ARRIVED TO THE MEDSUR FLOOR FROM THE ED STRETCHER BY ACTING INSTRUCTOR CECILIA. pt AWAKE AND RESTING IN BED, ON RA. RR EVEN AND UNLABORED. NO NEEDS VERBALIZED, CALL LIGHT IN REACH.
--- NOTE | 2021-04-02 20:58 | NUR ---
IV BOLUS HUNG AND STARTED PER MD ORDERS, IV SITE WNL. pt EDUCATED ON S/SX OF IV INFILTRATION. pt VERBALIZED UNDERSTANDING. QUICK ADMIT AND ADMISSION BOTH COMPLETE. pt REPORTS SOME ABD PAIN, BUT REMAINS PLEASANT AND INTERACTIVE WITH CIRCULATION MAN. pt ORIENTED TO ROOM, CALL LIGHT IN REACH. pt REPORTS USING HOME CPAP MACHINE, HOSPITAL CPAP MACHINE OFFERED, pt DECLINED AT THIS TIME. 2LNC REMAINS IN PLACE. RR EVEN AND UNLABORED. NO FURTHER NEEDS VERBALIZED, pt VERBALIZES UNDERSTANDING TO CALL CIRCULATION MAN BEFORE GETTING OOB.
--- NOTE | 2021-04-02 22:12 | NUR ---
PRN PAIN MEDICATION GIVEN FOR 8-9/10 PAIN, IV BOLUS COMPLETE. IV MAINTENANCE FLUIDS HUNG AND INFUSING DIRECTED, IV SITE WNL. PRIMARY RN TURNER AWARE. CALL LIGHT IN REACH.
--- NOTE | 2021-04-02 23:15 | NUR ---
PT 96% OXYGEN SATURATION ON ROOM AIR AT THIS TIME. PT ASKED ABOUT MORE PAIN MEDICATIONS, DISCUSSED PAIN MEDICATIONS AVAILABLE, ADMINISTERED 15 MG TORDOL FOR FULL DOSE AVAILABLE, AND TYLENOL PO ADMINISTERED, PT ASKED RN TO CALL FOR MORE PAIN MEDICATIONS, EDUCAITON GIVEN TO PATIENT THAT THE PLAN OF CARE CALLS FOR ADMINISTER THE MEDICATIONS AVAILABLE AT THIS TIME, IF PAIN IS STILL OUT OF CONTROL THIS RN WILL CALL . ALSO EDUCATION GIVEN IN REGARDS TO THE SIDE EFFECT OF THE DILAUDID GIVEN IN E.D. THAT PT THEN REQUIRED 2L OXYGEN TO MAINTAIN OXYGEN SATURATION GREATER THAN 90%.
--- NOTE | 2021-04-02 23:29 | NUR ---
CALLED THE NURSES STATION TO ASKED IF ANY OF THE RN NEEDED TO TALK WITH HIM. THIS RN SPOKE WITH IN REGARDS TO PATIENTS PAIN MANAGEMENT. ADDED NEW ORDER TO
--- NOTE | 2021-04-03 02:09 | NUR ---
PT REPORTS CONTINUED PAIN, INCREASED AFTER SUGAR FREE JELLO AND APPLE JUICE, NO NAUSEA, NO DISTRESS NOTED, PT IS SITTING UP IN BED RELAXED POSITION. DISCUSSED WITH PT THAT SHE WILL NEED TO JUST HAVE PLAIN WATER FOR NOW. PT BLOOD SUGAR WAS 89 THIS EVENING, IT WAS 145 IN E.D., THIS IS THE BASES FOR ALLOWING HER JELLO/APPLE JUICE IF SHE COULD TOLERATE. DISCUSSED PAIN MANAGEMENT PLAN, GAVE WARM BLANKET, PT AGREES TO PLAN OF CARE.
--- NOTE | 2021-04-03 04:18 | NUR ---
PT ADMITTED AT START OF SHIFT. SHE HAS REPORTED ABD PAIN, MEDICATED WITH TORDOL, TYLENOL, ULTRAM. SHE HAS NO NASUEA TOLERATING CLEAR LIQUIDS WELL AND ORAL MEDICATIONS. SHE IS STANDBY ASSIST TO BATHROOM. V/S STABLE ON ROOM AIR 94% OXYGEN SATURATION AND UP. SHE HAS REQUESTED WARM BLANKET TO LAY OVER HER ABD, SHE REPORT THIS HELPS WITH PAIN.
--- NOTE | 2021-04-03 05:57 | NUR ---
IN ROOM TO ASSIST PT TO RESTROOM AND BACK TO BED. NEW BAG OF LR IS NOW INFUSING. PT DENIES FURTHER NEEDS AT THIS TIME. CALL LIGHT IS CLOSE.
[2021-04-03] MEDS ORDERED: ALLOPURINOL100 MG PO (07:39)
[2021-04-03] MEDS ORDERED: PANTOPRAZOLE SO40 MG PO (07:40)
[2021-04-03] MEDS ORDERED: PRAVASTATIN SOD40 MG PO (07:44)
--- NOTE | 2021-04-03 07:44 | NUR ---
Report received from Rochelle NOVA. Pt sitting up in bed, A+O, on room air. States no needs at this time. Will continue plan of care, call light in reach.
[2021-04-03] MEDS ORDERED: LISINOPRIL20 MG PO (07:46)
--- NOTE | 2021-04-03 08:30 | NUR ---
CBG checked, rounded on patient who has no needs at this time, made plan for PRN medications when available
--- NOTE | 2021-04-03 09:45 | NUR ---
Scheduled medications administered, assessment complete. Pt resting in bed, ambulates to BR to void with SBA. Pt c/o of ABD pain after advancing to full liquids, specifically cream of wheat, continues to eat it after being encouraged to take it slow with clears if having pain. PRN toradol and tylenol administered for 7/10 ABD pain. IVF infusing WNL. Bowel tones active in all 4 quadrants. Pt has no further needs.
--- NOTE | 2021-04-03 10:34 | NUR ---
MED REC COMPLETED BY PHARMACY
--- NOTE | 2021-04-03 12:15 | NUR ---
Spoke with Luz Maria. Returns for symptoms of colitis and is + for Covid. Will return to her apartment on [address] and her friend, Waqar, will assist with any needs. Pt in the past has used the [facility] but states she is doing ok at this time.
--- NOTE | 2021-04-03 12:15 | NUR ---
CBG checked at 122, no SS insulin provided. IVF infusing WNL. Liquid tray provided, pt independent to bathroom and performed own cares. No further needs.
--- NOTE | 2021-04-03 13:45 | NUR ---
PRN medications administered for pain 09/20, pt states her pain is still 7/10 despite all meds given. Discussed plan of care, pt agreeable, will discuss with MD and dry charge process attendant
--- NOTE | 2021-04-03 15:20 | NUR ---
Scheduled medications administered, pt states feeling well at this time. IVF infusing WNL.
--- NOTE | 2021-04-03 17:45 | NUR ---
PRN tramadol and tylenol administered for 7/10 pain. Pt reports continually having loose stools, independent to BR. VQS. A+O, on room air. IVF infusing WNL.
--- NOTE | 2021-04-03 20:01 | NUR ---
BEDSIDE REPORT OUTSIDE PT ROOM DUE TO ISOLATION. PT HAS CONTINUED TO REPORT HIGH PAIN NUMBERS OVER DAYSHIFT, MEDICATIONS GIVEN PRN AVAILABLE. AWARE. PT ALSO USING HEATED BLANKETS ON ABD FOR PAIN RELIEF. PT HAS HAD GOOD APPETITE, THOUGH INCREASED PAIN WITH FULL LIQUID DIET, NO NAUSEA OR VOMITING, SHE HAS HAD DIARRHEA OVER DAYSHIFT.
--- NOTE | 2021-04-03 23:24 | NUR ---
PT CALLED NURSES STATION AND SAID "I'M HUNGERY" VANILLA PUDDING PROVIDED, SHE SAID THE ONE SHE WAS GIVEN EARLIER THIS SHIFT DID NOT CAUSE INCREASE OF PAIN. SHE ALSO HAD POPSCICLE EARILER IN SHIFT.
--- NOTE | 2021-04-04 02:49 | NUR ---
PT CALLED TO REQUEST PAIN MEDICATIONS AT THIS TIME, SHE REPORTS PAIN 09/20, ULTRAM AND TYLENOL ADMINSITERED PRN AT THIS TIME, WARM BLANKET AND FRESH ICE WATER ALSO PROVIDED, PT JUST BACK TO BED AFTER UP TO BATHROOM INDEPENDENTLY
--- NOTE | 2021-04-04 04:42 | NUR ---
PT HAS SLEPT INTERMITTENLY, REQUESTS PAIN MEDICATION AVAILABLE, SHE IS INDEPENDENT IN ROOM, STEADY GAIT, TOLERATING WATER AND FULL LIQUIDS WELL, SHE AHS HAD THREE PUDDING CUPS AND A POPSCICLE OVER SHIFT WITH NO INCREASE IN PAIN PER PT REPORT. V/S STABLE, QUANTITI SUFFICIENT URINE OUT PLUS. NO NEW CONCERNS OVER SHIFT.
--- NOTE | 2021-04-04 04:55 | NUR ---
PT UP TO BATHROOM INDEPENDENT, VOIDED 500ML, SHE REPORT SOME NAUSEA WHEN BACK TO BED, SHE BURPED AND IT HAS IMPROVED. TORDOL ADMINISTERED PRN AT THIS TIME. FOR PAIN 09/20
--- NOTE | 2021-04-04 08:22 | NUR ---
THIS RN CEHCKED ON PT FROM DOOR. PT REPORTS THAT SHE DOEN'T FEEL WELL. THIS RN ASKED WHAT SPECIFCALLY WAS NOT WELL. PT REPORTS PAIN IN ABDOMEN THAT WRAPS AROUND HER LEFT SIDE. THIS RN EDUCATED PT THAT THIS CAN BE ATTRIBUTED TO PANCREATITIS WHICH WAS INDICATED IN HER LABE. PT STATED UNDERSTANDING AND STATED UNDERSTANDING IN REGARD TO NEXT PAIN MEDS NOT BEING ABLE TO BE GIVEN UNTIL 1030
--- NOTE | 2021-04-04 09:05 | NUR ---
THIS RN IN PTS ROOM TO GIVE PT HER MRBREA MEDS. PT STATES UNDERSTANDING ABOUT THE TIME FRAME ON HER PAIN MEDS. PT REPORTS THAT HER URINE IS GETTING SOLAR INSTALLER PV THIS RN EDUCATED PT ABOUT NEEDING URINE TO BE A PALE YELLOW, PT APPEARS TO NEVER HAVE BEEN TOLD THIS (?). PT STATES NEEDING NOTHING FURTHER AT THIS TIME.
--- NOTE | 2021-04-04 09:50 | NUR ---
PT CALLED TO STATE THAT SHE WAS NAUSEAOUS. THIS RN STATED IT WOULD BE JUST A MINUTE BEFORE THIS RN COULD BE IN PTS ROOM .
--- NOTE | 2021-04-04 10:15 | NUR ---
THIS RN CHECKED ON PT. PT STATES THAT SHE IS ACUTALLY DOING JUST FINE AT THIS TIME AND DID NOT FEEL LIKE SHE WAS NAUSEAOUS. THIS RN WILL BE BACK TO CHECK ON PT AFTER A BIT
--- NOTE | 2021-04-04 11:02 | NUR ---
THIS RN IN PTS ROOM TO GIVE PT 15MG OF TORADOL REQUESTED. PT RATES PAIN 9/10. PT SITTING UP IN BED, LEGS AT EASE, NOT CRYING, FACE RELAXED. THIS RN EDUCATED PT ON THE PAIN SCALE- PT STATES THAT IS DEFINETLY A 9. PT ABLE TO ANSWER PHONE OF A FRIEND. THIS RN WAS LEAVING ROOM PT STATED THAT SHE THINKS SHE WILL NEED NAUSEA MEDS. THIS RN DISUCSSED WITH PT THIS RN NEEDS TO GO SEE ANOTHER PT FIRST. PT STATES UNDERSTANDING.
--- NOTE | 2021-04-04 11:21 | NUR ---
THIS RN IN PTS ROOM TO GIVE PT REQUESTED ZOFRAN. PT HAD TAKEN A BIG SIP OF WATER AFTER THIS RN PROVIDED PT WITH TORADOL. PT VOMITED UP 200ML OF CLEAR LIQUID AT THIS TIME. THIS RN EDUCATED ABOUT PROGRESSING PT WITH HER DIET, THIS RN ENCOURAGED PT TO EAT AND SIP THINGS SLOWLY THROUGHOUT THE DAY. PT STATES UNDERSTANDING.
--- NOTE | 2021-04-04 12:00 | NUR ---
THIS RN IN PTS ROOM TO GET PTS BLOOD SUGAR. PT BECAME VERY AGITATED WITH THIS RN. PT STATING THAT THE LAST TIME SHE WAS HERE SHE REPORTED THIS RN DUE TO THIS RN NOT BRINGING PT WATER. PT STAETS THAT SHE FEELS THIS RN WAS UNKIND WHEN THIS RN ASKED ABOUT PTS PAIN, THIS RN STATED TO PT THAT THIS RN WAS EDUCATING PT ON HER PAIN AND THIS WAS A MISUNDERSTANDING. IN PTS ROOM, PT STATES HER FRUSTRATION WITH THE PAIN AND OCCASIONAL NUASEA. PT TO BE SALINE LOCKED. PT WAS TEARFUL BUT THIS RN ABLE TO TALK PT THROUGH THE SITUATION. PT REPORTED TO MD THAT SHE DOES HAVE ANXIETY/ DEPRESSION. PT HAS CALL LIGHT [employer]IN REACH AND WAS EDUCATED ABOUT TAKING HER DIET SLOWLY.
--- NOTE | 2021-04-04 13:45 | NUR ---
this rn in pts room to give pt requested nausea meds. this rn provided pt with 10mg of compazine. pt reports that the chicken from lunch didn't sit well, pt reports that she has been trying to hold off on needing nausea meds. this rn educated pt about maybe doing a more simple dinner diet. this rn had pt pick out items for dinner, this was called down to [place]. pt did not vomit states that her abdomen feels a bit sore from vomiting earlier, but otherwise states that her pain is okay
--- NOTE | 2021-04-04 14:00 | NUR ---
pt called for bianca crackers. this rn educated pt about snacking on crackers slowly and waiting just a bit to let the meds settle a little more
--- NOTE | 2021-04-04 15:15 | NUR ---
THIS RN IN PTS ROOM TO GIVE PT HER AFTERNOON MEDS. PT STATES THAT HER PAIN IS OKAY RIGHT NOW, 08/21. TYLENOL AND TORADOL GIVEN. PT REPORTS NEEDING NOTHING FURTHER AT THIS TIME .
--- NOTE | 2021-04-04 16:50 | NUR ---
THIS RN IN PTS ROOM TO GIVE PT PRN 12.5MG PHENERGAN AT THIS TIME FOR PT VOMITING. VOMITING CAN BE HEARD FROM HALLWAY VERY FORCEFUL. PT HAS VOMITED A TOTAL OF 300ML IN EMESIS BAGS. THIS RN STARTED PUSHING PHENERGAN PT ABLE TO STOP RETCHING AND ABLE TO TALK IN FULL SENTENCES THIS RN ALSO ABLE TO GET PTS VOMITING UNDER CONTROL TO THE POINT PT IS ABLE TO TAKE THE VISTARIL AND IMITREX MEDS. THIS RN TURNED LIGHTS DOWN, PROVIDED PT WITH FRESH WASHCLOTHS ON THE SINK. PT REPORTS NEEDING NOTHING FURTHER, CALL LIGHT WITHIN REACH
--- NOTE | 2021-04-04 17:35 | NUR ---
THIS RN IN TO CHECK ON PT. PT APPEARS TO BE RESTING WITH DEEP AND EVEN RESPIRATIONS NOTED AND SNORING NOTED. CALL LIGHT NOTED TO BE WITHIN REACH
--- NOTE | 2021-04-04 17:40 | NUR ---
PT CALLED THAT SHE WAS NASUEAOUS.
--- NOTE | 2021-04-04 17:50 | NUR ---
THIS RN IN PTS ROOM TO GIVE PT ZOFRAN. PT VOMITED UP 200ML. PT HAS NOT BEEN GIVEN DINNER. PT CAN BE HEARD IN HALLWAY FORCEFULLY VOMITING TO THE POINT HER FACE WAS TURNING RED WHEN THIS RN ENTERED ROOM. THIS RN DISCUSSED WITH PT THAT HER NEXT NAUSEA MED WON'T BE AVAILABLE FOR ACOUPLE MORE HOURS. PT REPORTS THAT SHE STILL HAS A MIGRAINE AT THIS TIME.
--- NOTE | 2021-04-04 18:35 | NUR ---
pt called stating that she was still having a migraine and nasueous again.
--- NOTE | 2021-04-04 18:38 | NUR ---
this rn called about pts pain and nausea. this rn discussed with md about no nausea meds available to give. md okay to have comapazine to be given 1 hour. early
--- NOTE | 2021-04-04 18:50 | NUR ---
this rn provided pt with 10mg of compazine and 15mg of toradol. this rn discussed with pt that this rn had to get speacial permission to give med early and that the next med for nausea cannot be given for quite awhile. pt complainded to this rn that this rn wasn't doing enough, this rn discussed with pt that this rn has done everything that can be done. pt apologized. call light within reach
--- NOTE | 2021-04-04 19:43 | NUR ---
CBEDSIDE REPORT OUTSIDE PT ROOM PT VERY EMOTIONAL, THIS RN CHECKED IN ON PT AFTER REPORT, PT VERBALIZED "IT HAS BEEN AN AWFUL DAY!" PER REPORT FROM BRENDA RN PT HAS BEEN EMOTIONAL AND VOMITING THAT IS NEW TODAY. TALKED WITH PATIENT ABOUT OUR PLAN OF CARE KIKA, PT IS COMFORTABLE WITH THIS RN THIS WILL BE OUR THIRD WORKING TOGETHER.
--- NOTE | 2021-04-04 20:05 | NUR ---
in to get vitals, pt provided ice water and juice per pt's fluid restiction, pt up to void at bsc qs, window shades pulled for pt's comfort, no further needs at this time
--- NOTE | 2021-04-04 20:05 | NUR ---
in to get vitals, i&os done, ice water refreshed for pt's comfort, no further needs at this time
--- NOTE | 2021-04-04 20:22 | NUR ---
pt verbalized multiple negative situations with her dayshift rn.
--- NOTE | 2021-04-04 23:22 | NUR ---
PT CALLED TO REQUEST PAIN MEDICATIONS, SHE DOES NOT HAVE ANYTHING AVAILABLE UNITL MIDNIGHT, RN TO PT ROOM TO DISCUSS THIS WITH HER, SHE SAID "OK HONEY, THAT WILL BE FUN"
--- NOTE | 2021-04-05 00:34 | NUR ---
PT ADMINISTERED PAIN MEDICATIONS TYLENOL AND ULTRAM PER HER REQUEST, SHE ALSO STATED SHE WAS FEELING A LITTLE NAUSEA RN ENTERED THE ROOM, ZOFRAN 4MG IV ADMINISTERED. SHE DID NOT HAVE ANY EMESIS, ALSO VISTRIL ADMINISTERED. FRESH WATER PROVIDED, WELL WARM BLANKET AND COLD WASH CLOTH. SHE DID NOT HAVE ANY OTHER REQUESTS.
--- NOTE | 2021-04-05 01:11 | NUR ---
PT REPORTS PAIN 6/10 HEADACHE. SHE REPORTS NO NAUSEA AT THIS TIME, SHE HAS BEEN TOLERATING WATER AND JELLO WITH NO EMESIS.
--- NOTE | 2021-04-05 03:31 | NUR ---
CALL LIGHT ON, PT IS HAVING A HEADACHE AND FEELING LIKE SHE WILL VOMIT, IN TO PROVIDE PT WITH EMESIS BAG AND LET RN KNOW PT'S NEED
--- NOTE | 2021-04-05 04:02 | NUR ---
PT REPORTS SEVERE KAUR 10/21, SHE FEELS THIS IS WHAT IS MAKING HER HAVE NAUSEA, PHENERGAN PRN 12.5 ADMINISTERED IV DILUTED IN 20ML NS. WILL PROVIDE PT WITH TRAMADOL AND TYLENOL AT 0415 WHEN IT IS AVAILABLE , ALSO GAVE PT A COLD CLOTH AND AN ICE PACK TO PLACE AT BASE OF NECK.
--- NOTE | 2021-04-05 05:06 | NUR ---
PT HAS BEEN UP MOST OF SHIFT, SHE HAS REPORTED KAUR MOST OF SHIFT SHE REPORTS SHE HAD HEADACHE OVER DAYSHIFT, PAIN MEDICATIONS HELP BUT KAUR REMAINS. SHE HAS HAD TWO BOUTS OF NAUSEA, ZOFRAN AND PHENERGAN ADMINISTERED OVER SHIFT PRN. SHE HAS BEEN ADMINISTERED HER PRN PAIN MEDICATIONS OFTEN AVAILABLE, SHE HAS SLEPT THIS AM FOR ABOUT AN HOUR. SHE HAS HAD MULTIPLE COMPLAINTS ABOUT CARE DURING DAYSHIFT. FOUNDER CINTIA NOVA SPOKE WITH PATIENT. 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 SHE HAS BEEN COOPERATIVE WITH CARE.
--- NOTE | 2021-04-05 06:34 | NUR ---
PT CONSUMED ANOTHER JELLO THIS AM, SHE REPORTS NO NAUSEA AT THIS TIME. SHE DID NOT COMPLAIN OF PAIN. LAB IN ROOM TO DRAW BLOOD. V/S STABLE. NO CONCERNS AT THIS TIME.
--- NOTE | 2021-04-05 08:24 | NUR ---
ON RESPIRATORY ISOLATION, LUNGS CLEAR , ON ROOM SIR, SNXIOUD, REDIRECTABLE, SL RFA PATENT, INDEPENDENT IN ROOM, NO C/O CP OR N/V AT THIST SABINO, MEDICATED WITH TYLENOL PER GENERALIZED PAIN. INDEPENDENT IN ROOM, TOLERATING LIQUIDS WELL
--- NOTE | 2021-04-05 10:06 | NUR ---
C/O UPSET STOMACH AND H/A. MEDICATED WITH ZOFRAN IV AND ULTRAM 50MG. COLD WASH CLOTH TO OREHEAD. LIGHT TURNED OFF, ROOM DARKENED. PAUL HER TO LIMIT LIQUIDS FOR AT LEAST HALF AN HOUR TO DECREASE THE POSIBILITY OF EMESIS. SHE IS ON CLEAR LIQUIDS AND HAS HAD OVER 1000CC INTAKE SINCE 0800. RECEPTIVE. TV OFF TOO. MAG RIDER STARTED. PT MED INFORMATION GIVEN. STATED UNDERSTANDING
--- NOTE | 2021-04-05 11:19 | NUR ---
PT HAD 100CC GREEN THIN COLORED EMESIS. MEDICATED WITH INAPSINE IV. WAS GOING TO HOLD CARAFATE BUT PT SAID SHE CCOULD TAKE IT NOW. MAG RIDER INFUSING, TOLERATING WELL. NO FURTHER C/O H/A . CALL LIGHT AT BEDSIDE, WATCHNG TV, LIGHTS ON, DECLINES NEED TO DECREASE STIMULI. CONT ON RESP ISOLATION
--- NOTE | 2021-04-05 12:28 | NUR ---
Pt had 200cc thin, foamy green colored emesis. does own mouth care. Magnesium riders completed. sl patent. Medicated earlier with zofrna nd Inapsine, Vistaril and Tylenol given prior to emesis, was able to swallow them and were not ejected with emesis. Up to br, voided QS, Ice chips given. backa to bed, "I think its a migraine h/a but it does not feel like one. states comfortable now. lights and tv off. room darkened and wet cool wash cloth to forehead given
--- NOTE | 2021-04-05 14:15 | NUR ---
Patient sitting on the edge of the bed throwing up RN notified. patient says her head hurts and stomach hurts. vitals are done, call light within reach. no further needs at this time.
--- NOTE | 2021-04-05 14:30 | NUR ---
Pt called to report nausea and abd pain, pt's nurse on lunch, charge nurse notified. Pt called again 10 min later stating that she was now vomiting, assigned nurse still on lunch, charge nurse notified again. Pt called for a third time 5 min later and asked "Who is this ", I replied "I am one of the nurses how may I help you", pt replied "Well you're obviously not getting the message across", I apologized and pt replied loudly "Nevermind". Pt's nurse back fo lunch break at this point, both the assigned nurse and charge nurse notified of the situation.
--- NOTE | 2021-04-05 14:37 | NUR ---
PT HAD 200CC GREEN COLORED THIN EMESIS, MEDICATED WITH PHENERGAN 6.25iv , TORADOL 10MG IV PER C/O 10/21 ABD CRAMPING/PAIN. VERY ANXIOUS, CRYING, UPSET THAT SHE HAD TO WAIT FOR HER MEDS. REASSURED, CALMED DOWN. ICE CHIPS GIEVN. COOPERATIVE WITH ASSESSMENT, TV OFF, SHADEES DARKENING ROOM. CALL LIGHT AT HANDS REACH, VOIDING QS.
--- NOTE | 2021-04-05 16:25 | NUR ---
Report received from RN Savannah, pt stable on RA
--- NOTE | 2021-04-05 18:07 | NUR ---
Pt restin in bed safely w/ call light in reach. Pt c/o nausea and KAUR/migraine, pt given PRN meds per request and as ordered, see EMAR. Pt denies any further needs at this time
--- NOTE | 2021-04-05 19:40 | NUR ---
REPORT RECEIVED FROM AVTAR CANNON. ASSUMED CARE OF pt.
--- NOTE | 2021-04-05 20:35 | NUR ---
pt SITTING UP IN BED WATCHING TV. STATES MIGRAINE WENT AWAY. VSS. URINE EMPTIED FROM HAT. pt RATES PAIN IN ABDOMEN 6/10 WHEN RN IN ROOM, RIGHT UPPER AND LOWER QUADRANTS. BOWEL TONES HYPOACTIVE LLQ, LUQ, ACTIVE IN RUQ, RLQ. ABD SOFT, TENDER WITH PALPATION ON RIGHT SIDE OF ABD. PRN PAIN, ANXIETY MEDICATION ADMINISTERED. pt DENIES NAUSEA. CALL LIGHT IN REACH. SNACKS PROVIDED. OKAY PER MD VERBAL ORDER FOR pt TO HAVE CRACKERS. PUDDING AND CRACKERS PROVIDED. ICE WATER REFILLED.
--- NOTE | 2021-04-05 20:52 | NUR ---
UPDATED THAT PT WANTS CRACKERS, HE SAID THATS FINE. NURSE NOTIFY ORDER PLACED TO ALLOW PT CRACKERS.
--- NOTE | 2021-04-05 22:45 | NUR ---
CALL LIGHT ANSWERED. pt C/O 4-510 PAIN IN HEADACHE AND ABDOMEN. PRN PAIN MEDICATIONS ADMINISTERED REQUESTED. pt UP TO RESTROOM INDEPENDENTLY, URINE HAT EMPTIED. ENSURE PROVIDED. NO ADDITIONAL REQUESTS. CALL LIGHT IN REACH.
--- NOTE | 2021-04-06 02:50 | NUR ---
CALL LIGHT ANSWERED. pt C/O 09/20 PAIN IN ABDOMEN AND KAUR. PRN PAIN MEDICATION ADMINISTERED. pt PLEASANT, COOPERATIVE, SMILING. ASSESSMENT COMPLETE. ENSURE AND PUDDING PROVIDED REQUESTED. pt DENIES ANY NAUSEA. BOWEL TONES ACTIVE, ABD SOFT, DISTENDED, TENDER IN UPPER ABDOMEN WITH PALPATION. URINE EMPTIED FROM HAT. ICE WATER REFILLED. CALL LIGHT IN REACH.
--- NOTE | 2021-04-06 05:19 | NUR ---
CALL LIGHT ANSWERED. pt C/O 09/20 PAIN IN ABD AND HEADACHE, COOL CLOTH PROVIDED FOR FOREHEAD. PRN PAIN MEDICATION ADMINISTERED. VSS. URINE HAT EMPTIED. CALL LIGHT IN REACH.
--- NOTE | 2021-04-06 06:52 | NUR ---
pt RESTING IN BED, AWAKENS TO VOICE FOR SCHEDULED MEDICATIONS. pt RATES PAIN 6-7/10 IN HEAD AND IN ABDOMEN. C/O NAUSEA, BUT STATES "IT'S JUST BECAUSE THE PAIN MAKES ME NAUSEOUS". PRN NAUSEA MEDICATION AND PAIN MEDICATION ADMINISTERED. FULL LIQUID SNACKS PROVIDED. CALL LIGHT IN REACH.
--- NOTE | 2021-04-06 08:50 | NUR ---
ON RESPIRATORY ISOLATION. ON ROOM AIR. LUNGS CLEAR, NO C/O PAIN OR EMESIS, ANXIOUS, REDIRECTABLE, MEDICATED WITH VISTARIL 50MG PO. SL PATENT. VOIDING QS. INDEPENDENT IN ROOM. EATING FOOD. COOP WITH ASSESSMENT
--- NOTE | 2021-04-06 10:57 | NUR ---
MP FURTHER C/O EMSIS, TOLERATED 100% OF FULL LIQUID DIET. TOLERATING ICE CHIPS. C/O H/A, COLD TOWEL FOR FOREHEAD. TYLENOL PER H/A PAIN. COOPERATIVE. WATCHING TV. ROOM DARKENED. VOIDING QS
--- NOTE | 2021-04-06 11:00 | NUR ---
Spoke with Elvia, she states she is much better. Able to eat. Plans on going home today if agrees. Denies needs.
[2021-04-06] MEDS ORDERED: HYDROXYZINE PAM25 MG PO (12:06)
--- NOTE | 2021-04-06 12:34 | NUR ---
C/O H/A 08/21 PAIN MIGRAINE LIKE. MEDICATED WITH ULTRAM. PT HAS LGIHTS ON, WATCHING TV AND TALKING ON THE PHONE. DECLINES TO HAVE LIGHTS AND TV OFF. EATING FOOD. NO EMESIS,
--- NOTE | 2021-04-06 13:39 | NUR ---
PT GIVEN DC INSTRUCTION VERBALLY AND WRITTEN. STATED UNDERSTANDING. ALL QUESTIONS ANSWERED TO HIS SATISFACTION. GIVEN VISTARIL 50MG PO PER ANXIETY ADN ZOFRAN IV PER UPSET STOMACH PRIOR TO LEAVING. IV SITE DC'D.
--- NOTE | 2021-04-06 14:15 | NUR ---
Pt stable for dc. DC home with dc instructions and all belonging. dc via w/c to private car uner self care.
== END 2021-04-06 14:15 | disposition home or self-care (01) | DRG 393 ==
LOC: ED 11:30 → MS 11:31
PROVIDERS: ADMIT Internal Medicine; ATTEND Internal Medicine
PROC: 8E0ZXY6 Isolation (ICD-10-PCS; principal; 2021-04-04)
DX: K55.9 Vascular disorder of intestine, unspecified (principal); K85.90 Acute pancreatitis without necrosis or infection, unspecified; U07.1 COVID-19; I10 Essential (primary) hypertension; E11.9 Type 2 diabetes mellitus without complications; M79.7 Fibromyalgia; F32.A Depression, unspecified; F43.10 Post-traumatic stress disorder, unspecified; F25.9 Schizoaffective disorder, unspecified; G43.909 Migraine, unspecified, not intractable, without status migrainosus; K58.9 Irritable bowel syndrome, unspecified; I25.2 Old myocardial infarction; I25.10 Atherosclerotic heart disease of native coronary artery without angina pectoris; J45.909 Unspecified asthma, uncomplicated; F17.200 Nicotine dependence, unspecified, uncomplicated; Z88.6 Allergy status to analgesic agent; Z88.8 Allergy status to other drugs, medicaments and biological substances; Z90.49 Acquired absence of other specified parts of digestive tract; Z98.51 Tubal ligation status; Z90.710 Acquired absence of both cervix and uterus; Z98.890 Other specified postprocedural states; Z79.84 Long term (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 of oral 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 drugs; Z79.899 Other long term (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
CPT/HCPCS: 74177; 80053; 81001; 82150; 83690; 83735; 85025; 86140; 96372; 96375; 96376; 99285-25; C9113; C9803; G0378; J0780; J1170; J1650; J1885; J2405; J2550; J3475; J7030; J7121; Q0177; Q9967; U0003

== ENCOUNTER 2022-02-23 10:40 | Emergency (ER) | payer MEDICARE, OTHER ==
[~2022-02-23] VITALS: Ht 172.7 cm; Wt 95.2 kg
[~2022-02-23 10:40] MED LIST changes: +ALLOPURINOL100 MG PO; +HYDROXYZINE PAM25 MG PO; +PANTOPRAZOLE SO40 MG PO
--- OUTSIDE RECORDS SUMMARY | 2022-02-23 10:44 | XMS ---
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 No recent Security Events currently on file CRITERIA MET - - Has Care Guidelines - PDMP CARE PROVIDERS SANJEEV BREAUX Family Medicine 05/23/2018-Current PHONE: Unknown LELAND ROSE [facility] 07/21/2020-Current PHONE: Unknown Guidelines [facility] Guidelines Date: 11/24/2020 Care Coordination: Mental health services provided by [facility].\T\nbsp;Please contact [facility] with mental health concerns.\T\nbsp; Axel/Chandan Caruso: [phone]\T\nbsp; Alex: [phone] Crisis: [phone] Care History Medical/Surgical 03/23/2021 [facility] - Patient is currently established with [facility]. If patient is seen in the ED during business hours. Please contact CHWs at [facility]. Care Recommendation: If this patient has had 5 or more Emergency Department visits in the last 12 months.\T\nbsp; Patient will require education on the scope and purpose of the ED as an acute care provider not a Primary Care Provider and should not be utilized for chronic conditions.\T\nbsp; These are guidelines and the provider should exercise clinical judgment when providing care. 03/22/2021 [facility] Follow up with PCP Dr. Rose on 03/23/[address] Hopkins on 03/26/2021 [place] [facility] NOTE: Visits indicate total known visits. ED/UCC VISIT TRACKING (12 MO.) [facility] [place] [facility] COMPLAINT: - FALL, HEAD/FACIAL/NECK/R SHOULDER INJURY 04/02/2021 11:30 [facility] [place] TYPE: Emergency COMPLAINT: - ABDOMINAL PAIN 03/19/2021 21:11 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 [place] TYPE: Medical Surgical COMPLAINT: - ABDOMINAL PAIN DIAGNOSES: - Nicotine dependence, unspecified, uncomplicated - Acquired absence of other specified parts of digestive tract - Acute pancreatitis without necrosis or infection, unspecified - Vascular disorder of intestine, unspecified - Unspecified asthma, uncomplicated - Nicotine dependence, unspecified, uncomplicated - Fibromyalgia - DEPRESSION, UNSPECIFIED - Essential (primary) hypertension - Other mcfp (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 - Acute pancreatitis without necrosis or infection, unspecified - Old myocardial infarction - Post-traumatic stress disorder, unspecified - Type 2 diabetes mellitus without complications - Irritable bowel syndrome without diarrhea - Other mcfp (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 - Type 2 diabetes mellitus without complications - Schizoaffective disorder, unspecified - Allergy status to analgesic agent - Unspecified asthma, uncomplicated - COVID-19 - Old myocardial infarction - Essential (primary) hypertension - Acquired absence of other specified parts of digestive tract - Irritable bowel syndrome without diarrhea - Allergy status to other drugs, medicaments and biological substances - Allergy status to analgesic agent - nursing home (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 of oral 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 drugs - Allergy status to other drugs, medicaments and biological substances - Post-traumatic stress disorder, unspecified - Schizoaffective disorder, unspecified - nursing home (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 of oral 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 drugs - Migraine, unspecified, not intractable, without status migrainosus - Other specified postprocedural states - Atherosclerotic heart disease of [place] coronary artery without angina pectoris - Tubal ligation status - Other specified postprocedural states - Fibromyalgia - Tubal ligation status - Migraine, unspecified, not intractable, without status migrainosus - Acquired absence of both cervix and uterus - DEPRESSION, UNSPECIFIED - COVID-19 - Atherosclerotic heart disease of [place] coronary artery without angina pectoris - Acquired absence of both cervix and uterus 03/13/2021 16:[address] [facility] [place] TYPE: Medical Surgical COMPLAINT: - ISCHEMIC COLITIS DIAGNOSES: - Tobacco abuse counseling - Allergy status to other drugs, medicaments and biological substances - Ventral hernia without obstruction or gangrene - Residual hemorrhoidal skin tags - Acquired absence of both cervix and uterus - DEPRESSION, UNSPECIFIED - Post-traumatic stress disorder, unspecified - Acquired absence of both cervix and uterus - Hypotension, unspecified - Other hemorrhoids - Diverticulosis of large intestine without perforation or abscess without bleeding - Tubal ligation status - Unilateral inguinal hernia, without obstruction or gangrene, not specified as recurrent - Other 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 (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 - Diverticulosis of large intestine without perforation or abscess without bleeding - Tubal ligation status - Migraine, unspecified, not intractable, without status migrainosus - Essential (primary) hypertension - Nicotine dependence, cigarettes, uncomplicated - Fibromyalgia - DEPRESSION, UNSPECIFIED - Residual hemorrhoidal skin tags - Acquired absence of other specified parts of digestive tract - Schizoaffective disorder, unspecified - Hypomagnesemia - Tobacco abuse counseling - Allergy status to other drugs, medicaments and biological substances - Allergy status to narcotic agent - Vascular disorder of intestine, unspecified - Type 2 diabetes mellitus without complications - Chronic pain syndrome - Essential (primary) hypertension - Chronic pain syndrome - Other specified postprocedural states - nursing home (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 of oral 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 drugs - Fibromyalgia - Migraine, unspecified, not intractable, without status migrainosus - Nicotine dependence, cigarettes, uncomplicated - Acquired absence of other specified parts of digestive tract - Allergy status to narcotic agent - Hypotension, unspecified - Schizoaffective disorder, unspecified - Other hemorrhoids - Post-traumatic stress disorder, unspecified - Type 2 diabetes mellitus without complications - Unilateral inguinal hernia, without obstruction or gangrene, not specified as recurrent - 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
[2022-02-23] MEDS ORDERED: ULTRAM50 MG PO (13:03)
== END 2022-02-23 13:22 | disposition home or self-care (01) ==
LOC: ED 10:40
DX: S13.9XXA Sprain of joints and ligaments of unspecified parts of neck, initial encounter (principal); S40.011A Contusion of right shoulder, initial encounter; I10 Essential (primary) hypertension; E11.9 Type 2 diabetes mellitus without complications; I25.2 Old myocardial infarction; I25.10 Atherosclerotic heart disease of native coronary artery without angina pectoris; J45.909 Unspecified asthma, uncomplicated; F17.200 Nicotine dependence, unspecified, uncomplicated; Z88.5 Allergy status to narcotic agent; Z88.8 Allergy status to other drugs, medicaments and biological substances; Z79.899 Other long term (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; Z79.84 Long term (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 of oral 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 drugs; W01.0XXA Fall on same level from slipping, tripping and stumbling without subsequent striking against object, initial encounter
CPT/HCPCS: 72125; 73030; 99284-25; A9270

== ENCOUNTER 2022-06-24 10:19 | Inpatient (IN) | payer MEDICARE, OTHER ==
[~2022-06-24] VITALS: Ht 172.7 cm; Wt 91.2 kg
[~2022-06-24 10:19] MED LIST changes: +LAMICTAL150 MG PO; +ULTRAM50 MG PO
--- OUTSIDE RECORDS SUMMARY | 2022-06-24 10:22 | XMS ---
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 If patient is seen in the ED during business hours. Please contact CHWs at [facility]. Care Recommendation: If this patient has had 5 or more Emergency Department visits in the last 12 months.\T\nbsp; Patient will require education on the scope and purpose of the ED as an acute care provider not a Primary Care Provider and should not be utilized for chronic conditions.\T\nbsp; These are guidelines and the provider should exercise clinical judgment when providing care. 03/22/2021 [facility] Follow up with PCP Dr. Rose on 03/23/[address] Hopkins on 03/26/2021 E.D. VISIT COUNT (12 MO.) 2 [facility]. TOTAL 2 NOTE: Visits indicate total known visits. ED/UCC VISIT TRACKING (12 MO.) 06/24/2022 10:20 [facility] [place] TYPE: Emergency COMPLAINT: - R SIDE ABD/BACK PAIN, BLACK STOOL 02/23/2022 10:42 [facility] [place] TYPE: Emergency COMPLAINT: - FALL, HEAD/FACIAL/NECK/R SHOULDER INJURY DIAGNOSES: - Atherosclerotic heart disease of [place] coronary artery without angina pectoris - Nicotine dependence, unspecified, uncomplicated - Allergy status to narcotic agent - Headache, unspecified - Sprain of joints and ligaments of unspecified parts of neck, initial encounter - halfway (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 of oral 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 drugs - Fall on same level from slipping, tripping and stumbling without subsequent striking against object, initial encounter - Type 2 diabetes mellitus without complications - Allergy status to other drugs, medicaments and biological substances - Unspecified asthma, uncomplicated - Other detention (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 - Contusion of right shoulder, initial encounter - Old myocardial infarction - Essential (primary) hypertension INPATIENT VISIT TRACKING (12 MO.) No inpatient visits to display in this time frame [email or web address]
[2022-06-24] MEDS ORDERED: DICLOFENAC SODI75 MG PO (11:07)
[2022-06-24 18:49] VITALS: BP 89/58
[2022-06-24 20:10] VITALS: BP 88/55
[2022-06-24 22:02] VITALS: BP 86/55
[2022-06-24 22:59] VITALS: BP 94/56
[2022-06-25] VITALS (18 sets, daily range): BP systolic 83–127; BP diastolic 44–83
[2022-06-25] MEDS ORDERED: DULOXETINE HCL30 MG PO (07:43)
--- NOTE | 2022-06-25 15:24 | CONS ---
[facility] [address], [place] [address] Signed DATE OF CONSULTATION: 06/24/2022 REQUESTING PHYSICIAN: Roberto Wan MD. PROBLEM: Melanotic stool and excessive nonsteroidal medication use. HISTORY OF PRESENT ILLNESS: This is a 67-year-old white woman has had three days of abdominal pain mostly in the epigastric area penetrating into the posterior thorax. She thought to have had some right flank pain as well. She has noted black tarry stools and loose bowel movements for the past three days. She does take ibuprofen at least 4-5 times a day along with Tylenol. The patient has chronic diabetes mellitus for which she takes metformin and a history of PTSD and depression, which is under reasonable control recently. Her evaluation in the emergency room by Dr. Puentes included a CT scan showing some inflammation of the colon, but no other acute abnormality. She has undergone appendectomy, hysterectomy and cholecystectomy in the past. PAST MEDICAL HISTORY: Additionally includes hypertension, diabetes, chronic pain including fibromyalgia, depression, PTSD, and distant history of suicidal tendencies. She also was noted to have degenerative disk disease, irritable bowel syndrome, diverticulosis and history of myocardial infarction with coronary artery disease, asthma, and possible ulcerative colitis. 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 She does smoke on a routine basis and does take nonsteroidals as previously described. ALLERGIES: She self described as having allergy to codeine, morphine, , olanzapine, and prazosin. CURRENT MEDICATIONS: Include diclofenac, metformin, sumatriptan, albuterol, Abilify, duloxetine, pregabalin (Lyrica), lamotrigine, magnesium oxide, Tylenol, Motrin, and pravastatin. REVIEW OF SYSTEMS: She denies any actual hematemesis. She does not have dysphagia. FAMILY HISTORY: She denies family history of colon or upper gastrointestinal malignancy. Electronically Signed By: ANDRIY GARNER MD 06/25/22 1524 PATIENT NAME: TIM BROOKS CONSULTATION DATE OF : 53 REPORT #: [id number] PHYSICIAN: ANDRIY GARNER MD PCP: LELAND NOYOLA MD REPORT IS CONFIDENTIAL AND NOT TO BE RELEASED WITHOUT AUTHORIZATION [facility] [address] [place] [address] Signed PHYSICAL EXAMINATION: GENERAL: A pleasant woman who appears to be in no acute distress at the moment. Trachea is midline. CHEST: Shows normal respiratory excursion. HEART: Pulses regular. ABDOMEN: Somewhat obese, but soft, easily palpated. There is no focal mass or tenderness. EXTREMITIES: Show no clubbing, cyanosis, or edema. ASSESSMENT: She has high probability of duodenal or gastric ulceration related to her ongoing NSAID use and various life stresses including her workplace. I would recommend upper endoscopy to be performed tomorrow to better characterize the problem. The risks of bleeding, infection, and perforation were reviewed in detail. MD MEENAKSHI Gonzalez/TEJAS /[id number] cc: MD Roberto Jameson MD Copies: ROBERTO WAN MD ~ Electronically Signed By: ANDRIY GARNER MD 06/25/22 1524 PATIENT NAME: TIM BROOKS CONSULTATION DATE OF : 53 REPORT #: [id number] PHYSICIAN: ANDRIY GARNER MD PCP: LELAND NOYOLA MD REPORT IS CONFIDENTIAL AND NOT TO BE RELEASED WITHOUT AUTHORIZATION
--- NOTE | 2022-06-25 15:25 | OR ---
[facility] [address] [place], [place] [address] Signed DATE OF OPERATION: 06/25/2022 SURGEON: Andriy Garner MD PREOPERATIVE DIAGNOSES: 1. Melena with anemia. 2. Excessive NSAID intake. POSTOPERATIVE DIAGNOSIS: Prepyloric ulcer. PROCEDURES: 1. Esophagogastroduodenoscopy with biopsy. 2. Control of ulcer with hemoclips. 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 Wna for recurrent melena and three days of abdominal pain and epigastric and right flank pain. She was noted to have a hematocrit of 27. She has had no hematemesis. She does take ibuprofen at least four times a day along with Tylenol. She does have chronic pain syndrome with joint pain and self described "fibromyalgia." She has been admitted, given intravenous fluids, close monitoring and serial hematocrits undertaken. Her hematocrit currently is 27. She is admitted to undergo upper endoscopy to better characterize the problem. She understands the risk of bleeding, infection, and perforation. FINDINGS: She had a prepyloric ulcer, which was reasonably superficial and one area of erythema which may or may not have represent submucosal vessel. On that basis, application of hemoclips was undertaken. The duodenum and stomach and esophagus were otherwise normal. CLOtest was negative indicating no current evidence of H pylori. Most likely, she has a prepyloric ulcer related to the intensive NSAID use. DESCRIPTION OF PROCEDURE: The patient was brought to the endoscopy suite placed in lateral decubitus position and bite block was placed. She was given intravenous sedation with propofol infusional technique by the medical equipment repair technician. Full cardiopulmonary monitoring was maintained. The Olympus video upper endoscope was passed in the hypopharynx. The vocal cords were Electronically Signed By: ANDRIY GARNER MD 06/25/22 1525 PATIENT NAME: TIM BROOKS OPERATIVE REPORT DATE OF : 53 REPORT #: [id number] PHYSICIAN: ANDRIY GARNER MD PCP: LELAND NOYOLA MD REPORT IS CONFIDENTIAL AND NOT TO BE RELEASED WITHOUT AUTHORIZATION [facility] [address] [place], [place] [address] Signed normal. Esophagus throughout its length was normal. The scope was passed to the stomach, which was essentially normal, though there was some bile reflux within it. Irrigation was undertaken. The bile suctioned free and notable in the prepyloric area was a relatively superficial ulceration with an erythematous segment likely accounting for recent bleeding. The scope was passed through the pylorus into the duodenum. The 3rd, 2nd, and bulbar portions were all normal. The scope was withdrawn and two hemoclips were applied to the offending area of the prepyloric ulcer. Biopsies were then taken of the antrum for both JENNIFER and pathologic testing. Retroflexed view was undertaken, which was normal. Scope was withdrawn to the distal esophagus which was affirmed as normal as well. The scope was then removed. The patient was taken to the recovery room in good condition. CONCLUDING DIAGNOSIS: Almost certainly her melena and anemia is related to the prepyloric gastric ulcer. This would be most likely related of course to excessive NSAID use. PLAN: We will continue with PPI medication. Add Carafate cytoprotective agent. Avoid NSAIDs and maintain regular diet. Andriy Garner MD JM/MODL /[id number] cc: MD Roberto Jameson MD Copies: ROBERTO WAN MD ~ Electronically Signed By: ANDRIY GARNER MD 06/25/22 1525 PATIENT NAME: TIM BROOKS OPERATIVE REPORT DATE OF : 53 REPORT #: [id number] PHYSICIAN: ANDRIY GARNER MD PCP: LELAND NOYOLA MD REPORT IS CONFIDENTIAL AND NOT TO BE RELEASED WITHOUT AUTHORIZATION
[2022-06-26 02:30] VITALS: BP 106/56
[2022-06-26 06:10] VITALS: BP 113/69
--- NOTE | 2022-06-26 07:31 | EKG ---
[facility] [address] [facility] [place], [place] [address] Signed Normal sinus rhythm Normal ECG Confirmed by ROBERTO BRADLEY MD ([id number]) on 06/26/2022 7:31:12 AM Electronically Signed By: ROBERTO BRADLEY MD 06/26/22 0731 PATIENT NAME: TIM BROOKS Electrocardiogram DATE OF : 53 PHYSICIAN: ROBERTO BRADLEY MD REPORT #: [id number] REPORT IS CONFIDENTIAL AND NOT TO BE RELEASED WITHOUT AUTHORIZATION
[2022-06-26] MEDS ORDERED: HYDROMORPHONE HC2 MG PO (10:26)
[2022-06-26] MEDS ORDERED: SUCRALFATE1 GM PO (10:26)
[2022-06-26] MEDS ORDERED: PANTOPRAZOLE SO40 MG PO (10:27)
[2022-06-26 11:42] VITALS: BP 104/60
[2022-06-26] MEDS ORDERED: PEPCID40 MG PO (12:36)
[2022-06-26] MEDS ORDERED: ALLOPURINOL100 MG PO (12:36)
[2022-06-26] MEDS ORDERED: VOLTAREN ARTHRI20 GM TOP (12:37)
[2022-06-26 13:21] VITALS: BP 126/75
--- NOTE | 2022-06-30 16:55 | PATH ---
[facility] [address] [facility] [place] [address] Signed THIS IS AN ADDENDUM REPORT SPECIMEN(S): A ANTRUM/PYLORUS BIOPSY SPECIMEN SOURCE: A. ANTRUM/PYLORUS BIOPSY CLINICAL HISTORY: GI bleed. Pre-pyloric ulcer. FINAL PATHOLOGIC DIAGNOSIS: Antrum/pylorus, biopsies: - Mild to moderate chronic active gastritis. - Negative for intestinal metaplasia. COMMENT: Although no Helicobacter pylori organisms were identified on routine stain, due to the increased inflammation an immunohistochemical stain has been ordered and will be reported by addendum. DDF:[facility]:C2NR MICROSCOPIC EXAMINATION: Histologic sections of all submitted blocks are examined by light microscopy. These findings, together with the gross examination, support the pathologic diagnosis. GROSS DESCRIPTION: The specimen, labeled and designated "Mariola, D, 1," and designated on the requisition "antrum/pylorus biopsy," is received in formalin and consists of one funk soft tissue fragment that is 0.5 cm in greatest dimension. The specimen is entirely submitted in (A1). FB (under the direct supervision of a pathologist) The Gross Description was prepared using a voice recognition system. The report was reviewed for accuracy; however, sound-alike word errors, addition and/or deletions may occur. If there is any question about this report, please contact Client Services. PERFORMING LABORATORY: The technical component was performed by [employer], [address] [place] [address] (CLIA# [id number]). Professional interpretation was performed by [facility] PATIENT NAME: TIM BROOKS PATHOLOGY DATE OF : 53 REPORT #: [id number] PHYSICIAN: BREANNA PATHOLOGY PCP: LELAND NOYOLA MD REPORT IS CONFIDENTIAL AND NOT TO BE RELEASED WITHOUT AUTHORIZATION [facility] [address] [place], [place] [address] [facility], [address] [place] [id number] (CLIA#: [id number]) ADDITIONAL NOTES: Immunohistochemical and/or in situ hybridization studies were performed on this case with the appropriate positive controls that react as expected. This test was developed and its performance characteristics determined by [employer]. It has not been cleared or approved by the U.S. Food and Drug Administration. The FDA has determined that such clearance or approval is not necessary. This test is used for clinical purposes. It should not be regarded as investigational or for research. [facility] [employer] is certified under the Clinical Laboratory Improvement Amendments of 1988 (CLIA) as qualified to perform high complexity clinical laboratory testing. This assay has not been validated for specimens that have been decalcified. PERFORMING LABORATORY: The technical component was performed by [facility], [address] [place] [address] (CLIA# [id number]). Professional interpretation [facility], [address] [place] [id number] (CLIA#: [id number]) REASON FOR ADDENDUM: To add result of immunohistochemical stain. ADDENDUM COMMENT: A properly controlled immunohistochemical stain for Helicobacter pylori was performed on block A1 and was negative for stainable organisms. DDF:[facility] Diagnostician: Santos Sanders DO Pathologist Electronically Signed 06/30/2022 Copies: ~ PATIENT NAME: TIM BROOKS PATHOLOGY DATE OF : 53 REPORT #: [id number] PHYSICIAN: BREANNA COTTON PCP: LELAND NOYOLA MD REPORT IS CONFIDENTIAL AND NOT TO BE RELEASED WITHOUT AUTHORIZATION
== END 2022-06-26 13:30 | disposition home or self-care (01) | DRG 378 ==
LOC: ED 10:19 → MS 17:36 → CCU 17:36 → MS 06-25 15:39
PROVIDERS: Surgery; ADMIT Internal Medicine; ATTEND Internal Medicine
PROC: 0W3P8ZZ Control Bleeding in Gastrointestinal Tract, Via Natural or Artificial Opening Endoscopic (ICD-10-PCS; 2022-06-25)
PROC: 0DB78ZX Excision of Stomach, Pylorus, Via Natural or Artificial Opening Endoscopic, Diagnostic (ICD-10-PCS; principal; 2022-06-25 11:00)
DX: K25.4 Chronic or unspecified gastric ulcer with hemorrhage (principal); D62 Acute posthemorrhagic anemia; E11.9 Type 2 diabetes mellitus without complications; Z20.822 Contact with and (suspected) exposure to COVID-19; F32.A Depression, unspecified; E83.42 Hypomagnesemia; I10 Essential (primary) hypertension; G89.29 Other chronic pain; M79.7 Fibromyalgia; F43.10 Post-traumatic stress disorder, unspecified; K58.9 Irritable bowel syndrome, unspecified; F17.210 Nicotine dependence, cigarettes, uncomplicated; I25.10 Atherosclerotic heart disease of native coronary artery without angina pectoris; J45.909 Unspecified asthma, uncomplicated; Z87.19 Personal history of other diseases of the digestive system; I25.2 Old myocardial infarction; Z90.49 Acquired absence of other specified parts of digestive tract; Z98.51 Tubal ligation status; Z90.710 Acquired absence of both cervix and uterus; Z90.89 Acquired absence of other organs; Z98.890 Other specified postprocedural states; Z88.5 Allergy status to narcotic agent; Z88.6 Allergy status to analgesic agent; Z88.8 Allergy status to other drugs, medicaments and biological substances; Z79.84 Long term (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 of oral 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 drugs; Z79.899 Other long term (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
CPT/HCPCS: 00731; 36415; 74177; 80048; 80053; 81003; 83690; 83735; 85025; 86850; 86900; 86901; 87502; 88305; 88342; 93005; 93010; 96366; 96375; 99285-25; A9270; C9113; C9803; J0131; J1170; J2405; J2704; J3010; J3475; J7030; Q9967; U0003

== ENCOUNTER 2022-07-04 12:20 | Emergency (ER) | payer MEDICARE, OTHER ==
[~2022-07-04] VITALS: Ht 172.7 cm; Wt 93.0 kg
[~2022-07-04 12:20] MED LIST changes: +DULOXETINE HCL30 MG PO; +HYDROMORPHONE HC2 MG PO; +PEPCID40 MG PO; +SUCRALFATE1 GM PO; +VOLTAREN ARTHRI20 GM TOP
--- OUTSIDE RECORDS SUMMARY | 2022-07-04 12:22 | XMS ---
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 No recent Security Events currently on file CRITERIA MET - [facility] - Has Care Guidelines - [facility] - 2 Visits in 30 Days - PDMP CARE PROVIDERS -[place]- Dentist: Die Baker [facility] PHONE: [phone] SANJEEV BREAUX [facility] 05/23/2018-Current PHONE: Unknown LELAND ROSE [facility] 07/21/2020-Current PHONE: Unknown Care Guidelines exist for the following facilities: [facility] ( 11/24/2020 ) Care History Medical/Surgical 03/23/2021 [facility] - Patient is currently established with [facility]. If patient is seen in the ED during business hours. Please contact CHWs at [facility]. Care Recommendation: If this patient has had 5 or more Emergency Department visits in the last 12 months.\T\nbsp; Patient will require education on the scope and purpose of the ED as an acute care provider not a Primary Care Provider and should not be utilized for chronic conditions.\T\nbsp; These are guidelines and the provider should exercise clinical judgment when providing care. 03/22/2021 [facility] Follow up with PCP Dr. Rose on 03/23/[address] Hopkins on 03/26/2021 [facility]. VISIT COUNT (12 MO.) 3 [facility]. TOTAL 3 NOTE: Visits indicate total known visits. ED/UCC VISIT TRACKING (12 MO.) 07/04/2022 12:20 [facility] TYPE: Emergency COMPLAINT: - POST OP PROBLEM 06/24/2022 10:20 [facility] TYPE: Emergency COMPLAINT: - R SIDE ABD/BACK PAIN, BLACK STOOL 02/23/2022 10:42 [facility] TYPE: Emergency COMPLAINT: - FALL, HEAD/FACIAL/NECK/R SHOULDER INJURY DIAGNOSES: - Old myocardial infarction - Essential (primary) hypertension - Atherosclerotic heart disease of [place] coronary artery without angina pectoris - Nicotine dependence, unspecified, uncomplicated - Allergy status to narcotic agent - Headache, unspecified - Sprain of joints and ligaments of unspecified parts of neck, initial encounter - retirement (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 of oral 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 drugs - Fall on same level from slipping, tripping and stumbling without subsequent striking against object, initial encounter - Type 2 diabetes mellitus without complications - Allergy status to other drugs, medicaments and biological substances - Unspecified asthma, uncomplicated - Other penitentiary (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 - Contusion of right shoulder, initial encounter INPATIENT VISIT TRACKING (12 MO.) 06/24/2022 17:[address] [facility] [place] TYPE: Medical Surgical COMPLAINT: - ACUTE GI BLEED DIAGNOSES: - Unspecified asthma, uncomplicated - Allergy status to other drugs, medicaments and biological substances - Acquired absence of other specified parts of digestive tract - Other penitentiary (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 - Depression, unspecified - terminal operator (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 of oral 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 drugs - Allergy status to other drugs, medicaments and biological substances - Hypomagnesemia - Other penitentiary (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 - Acquired absence of other organs - Nicotine dependence, cigarettes, uncomplicated - Acquired absence of other specified parts of digestive tract - Type 2 diabetes mellitus without complications - Irritable bowel syndrome without diarrhea - Acquired absence of other organs - Contact with and (suspected) exposure to COVID-19 - Essential (primary) hypertension - Atherosclerotic heart disease of [place] coronary artery without angina pectoris - Contact with and (suspected) exposure to COVID-19 - Old myocardial infarction - Personal history of other diseases of the digestive system - Allergy status to narcotic agent - Allergy status to analgesic agent - Atherosclerotic heart disease of [place] coronary artery without angina pectoris - Nicotine dependence, cigarettes, uncomplicated - Allergy status to narcotic agent - retirement (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 of oral 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 drugs - Old myocardial infarction - Type 2 diabetes mellitus without complications - Other chronic pain - Other specified postprocedural states - Fibromyalgia - Acute posthemorrhagic anemia - Acute posthemorrhagic anemia - Other specified postprocedural states - Post-traumatic stress disorder, unspecified - Depression, unspecified - Tubal ligation status - Personal history of other diseases of the digestive system - Acquired absence of both cervix and uterus - Irritable bowel syndrome without diarrhea - Essential (primary) hypertension - Hypomagnesemia - Tubal ligation status - Post-traumatic stress disorder, unspecified - Acquired absence of both cervix and uterus - Chronic or unspecified gastric ulcer with hemorrhage - Fibromyalgia - Unspecified asthma, uncomplicated - Allergy status to analgesic agent - Other chronic pain [email or web address]
[2022-07-04] MEDS ORDERED: ARIPIPRAZOLE30 MG PO (12:36)
[2022-07-04] MEDS ORDERED: PREGABALIN150 MG PO (12:36)
[2022-07-04] MEDS ORDERED: DILAUDID2 MG PO (15:07)
[2022-07-04] MEDS ORDERED: ONDANSETRON ODT8 MG PO (15:19)
[2022-07-04 15:34] VITALS: BP 148/86
== END 2022-07-04 15:34 | disposition home or self-care (01) ==
LOC: ED 12:20
DX: K43.9 Ventral hernia without obstruction or gangrene (principal); I10 Essential (primary) hypertension; E11.9 Type 2 diabetes mellitus without complications; I25.10 Atherosclerotic heart disease of native coronary artery without angina pectoris; J45.909 Unspecified asthma, uncomplicated; F17.200 Nicotine dependence, unspecified, uncomplicated; Z88.5 Allergy status to narcotic agent; Z88.8 Allergy status to other drugs, medicaments and biological substances; Z79.899 Other long term (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; Z79.84 Long term (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 of oral 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 drugs
CPT/HCPCS: 36415; 74177; 80053; 81003; 83690; 85025; 86850; 86900; 86901; C9113; J1170; J2405; J3010; J7030; Q9967

== ENCOUNTER 2023-04-03 20:19 | Emergency (ER) | payer MEDICARE, OTHER ==
[~2023-04-03] VITALS: Ht 172.7 cm; Wt 89.4 kg
[~2023-04-03 20:19] MED LIST changes: +ARIPIPRAZOLE30 MG PO; +DILAUDID2 MG PO; +LOMOTIL TABLET1 EACH PO; +MAGNESIUM400 M1 PO; +ONDANSETRON ODT8 MG PO; +PREGABALIN150 MG PO; +TIZANIDINE HCL2 M1 PO
[2023-04-03 20:49] LABS: BASOPHILS 1.1 % (0-2); HEMATOCRIT 27.4 % (35.0-50.0); HEMOGLOBIN 9.3 g/dL (12.0-18.0); LYMPHOCYTES 33.9 % (24-44); MCH 29.2 (27-36); MCHC 33.8 g/dl (30-36); MCV 86.4 fl (81-99); MONOCYTES 10.2 % (0-12); NEUTROPHILS 52.8 % (39-80); PLATELET COUNT 314 K/uL (140-440); RBC 3.18 M/ul (4.3-5.7); RDW 14.3 (10.5-15.0)
[2023-04-03 21:11] LABS: ANION GAP 7.9 (7-21); POTASSIUM 4.9 mmol/L (3.5-5.1)
[2023-04-03 22:24] VITALS: BP 105/63
--- NOTE | 2023-04-06 09:48 | CONS ---
[facility] [address] [place], [place] [address] Signed DATE OF CONSULTATION: 04/03/2023 TIME: 08:20 p.m. PROBLEM: Feelings of dysphagia, bilateral thyroid nodules, status post ultrasound FNA one week ago. HISTORY: This elderly white woman is known to me from the past evaluated for three nodules of her thyroid, two on the right and one on the left. On Tuesday, nearly a week ago, she underwent ultrasound, fine-needle aspiration biopsy by me of the thyroid nodules. Her intial presentation weeks ago was to the emergency room previously with lightheadedness and related to a fall that she had with contusion of her head. At that time, she underwent a CT scan of the head and neck, which incidentally showed a thyroid nodules. Subsequently, ultrasound performed confirmed at least a 2.5 cm thyroid nodule on the left and 1.5 and 1.7 nodule on the right. Fine-needle aspiration biopsy went without difficulty one week ago as previously noted. I was called by her at home tonight at about 7:30pm. complaining that she was having trouble breathing. She additionally said that she had neck swelling and what possibly sounded like tracheal deviation. I asked her to come to the emergency room at once for evaluation. She did not immediately appear and I called her at home at # [phone]. As it turns out, she had difficulty in getting a ride to the hospital, on that basis, I recommended that she take an ambulance, given the possibility of an airway issue. She was transferred by ambulance and was noted to have a O2 saturation of 94% en route and a systolic pressure of 97. She did receive some intravenous crystalloid solution, lactated Ringer's, which brought her pressure to over 120. At present, her main complaint is that of feeling some difficulty in swallowing and some dizziness. She denies any hemoptysis or hematemesis. She does not describe difficulty breathing currently. PHYSICAL EXAMINATION: GENERAL: Pleasant white woman, who does not look to be in distress actually. There is minimal ecchymosis in the base of her left neck. Trachea is not deviated. Palpation reveals no evidence of overt hematoma and no evidence of crepitus. She phonates well. CHEST: Shows normal respiratory excursion. She has no tachypnea. Electronically Signed By: ANDRIY GARNER MD 04/06/23 0948 PATIENT NAME: TIM BROOKS CONSULTATION DATE OF : 53 REPORT #: [id number] PHYSICIAN: ANDRIY GARNER MD PCP: LELAND NOYOLA MD REPORT IS CONFIDENTIAL AND NOT TO BE RELEASED WITHOUT AUTHORIZATION [facility] [address] [place], [place] [address] Signed NEUROLOGIC: Shows extraocular eye movements to be normal. Tongue protrudes to the midline. Hvac Estimator strength is equal bilaterally. Lower extremity movement is impaired by her snow boots. There is no evidence of clavicular deformity. She has no tracheal deviation and no overt hematoma. ASSESSMENT: Her symptoms are rather nonspecific and needle aspiration biopsy in general as a low risk event for hematoma formation, though certainly anything is possible and on that basis, she was appropriate to be transported and evaluated. I have conferred with Dr. Moreno, emergency room physician, and we will order a soft tissue CT scan of the neck and upper chest. The possibility of a deep hematoma causing obstructive symptoms is considered as well and though of low likelihood, should be considered given her symptoms. MD MEENAKSHI Gonzalez/ZHAOL /[id number] cc: Alcira Silva DO Copies: ~ Electronically Signed By: ANDRIY GARNER MD 04/06/23 0948 PATIENT NAME: TIM BROOKS CONSULTATION DATE OF : 53 REPORT #: [id number] PHYSICIAN: ANDRIY GARNER MD PCP: LELAND NOYOLA MD REPORT IS CONFIDENTIAL AND NOT TO BE RELEASED WITHOUT AUTHORIZATION
== END 2023-04-03 22:24 | disposition home or self-care (01) ==
LOC: ED 20:19
PROVIDERS: Family Medicine
DX: G89.18 Other acute postprocedural pain (principal); R13.10 Dysphagia, unspecified; I10 Essential (primary) hypertension; E11.9 Type 2 diabetes mellitus without complications; I25.2 Old myocardial infarction; I25.10 Atherosclerotic heart disease of native coronary artery without angina pectoris; F17.200 Nicotine dependence, unspecified, uncomplicated; Z88.5 Allergy status to narcotic agent; Z88.8 Allergy status to other drugs, medicaments and biological substances; Z79.84 Long term (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 of oral 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 drugs; Z79.899 Other long term (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
CPT/HCPCS: 36415; 70491; 80048; 85025; 99284-25; Q9967

== ENCOUNTER 2023-04-11 18:14 | Inpatient (IN) | payer MEDICARE, OTHER ==
[~2023-04-11] VITALS: Ht 172.7 cm; Wt 89.9 kg
[2023-04-11 22:57] VITALS: BP 149/76
--- NOTE | 2023-04-11 23:06 | NUR ---
PT TO FLOOR VIA STRETCHER WITH GLOST KILN OPERATOR. BEDSIDE REPORT RECEIVED. SKIN VISUALIZED WITH ED RN. PT ALERT AND ORIENTED. ABLE TO PIVOT TX SELF FROM STRETCHER TO BED WITH SBA. PAUL WELL. VS AND WEIGHT OBTAINED. PT ON 2L/NC UPON ARRIVAL. SpO2 99%. OXYGEN TITRATED TO 1L/NC. SpO2 96%. FLOAT RN IN ROOM FOR ADMISSION.
--- NOTE | 2023-04-11 23:14 | NUR ---
PT ASSISTED TO BED, 1-2 SBA. PT DECLINES TO USE BR AT THIS TIME. VS COMPLETED. PT HAS NO IV AT THIS TIME. ICE WATER PROVIDED. PRIMARY RN IN ROOM FOR ASSESSMENT.
--- NOTE | 2023-04-11 23:30 | NUR ---
ADMISSION ASSESSMENT COMPLETE. PT REPORTS PELVIC PAIN 09/20. MD NOTIFIED. NEW ORDERS RECEIVED. OK'D NO SALINE LOCK AT THIS TIME. SANDWICH BOX PROVIDED. PT ORIENTED TO ROOM AND NURSE CALL LIGHT. PT DENIES QUESTIONS OR CONCERNS. CALL LIGHT IN REACH.
--- NOTE | 2023-04-12 03:28 | NUR ---
PT RESTING IN BED WITH EYES CLOSED. AWAKENS EASILY. SPOT CHECK SpO2 92% ON 1L/NC. HR 70'S. ASSISTED TO REPOSITION FOR COMFORT. NO FURTHER NEEDS.
--- NOTE | 2023-04-12 05:02 | NUR ---
CALL LIGHT ANSWERED. PT REPORTS HIP/GROIN PAIN 11/21. PRN FOR PAIN ADMIN PER EMAR. PT NEEDS TO VOID. ATTEMPTED TO ASSIST TO BSC. PT CRIES OUT IN PAIN, UNABLE TO GET OUT OF BED AT THIS TIME. PUREWICK PLACED.
[2023-04-12 05:33] LABS: BASOPHILS 0.8 % (0-2); EOSINOPHILS 1.7 % (0-6); HEMATOCRIT 26.5 % (35.0-50.0); HEMOGLOBIN 8.9 g/dL (12.0-18.0); LYMPHOCYTES 32.7 % (24-44); MCH 28.8 (27-36); MCHC 33.6 g/dl (30-36); MCV 85.6 fl (81-99); MONOCYTES 9.9 % (0-12); NEUTROPHILS 54.9 % (39-80); PLATELET COUNT 255 K/uL (140-440); RDW 14.2 (10.5-15.0)
[2023-04-12 05:58] LABS: ALBUMIN 2.7 g/dL (3.4-5.0); ALBUMIN/GLOBULIN RATIO 0.82 (1.1-2.4); ANION GAP 9.8 (7-21); BILIRUBIN, TOTAL 0.5 ng/dL (0.2-1.0); BUN/CREATININE RATIO 18.46 (6.0-28.6); CALCIUM 9.3 mg/dL (8.5-10.1); CREATININE, SERUM 0.65 mg/dL (0.55-1.02); MAGNESIUM 1.4 mg/dL (1.8-2.4); POTASSIUM 3.8 mmol/L (3.5-5.1)
[2023-04-12 05:59] VITALS: BP 120/78
--- NOTE | 2023-04-12 06:00 | NUR ---
PT UNABLE TO VOID USING PUREWICK. 1PA TO BSC TO VOID 200 ML CONCENTRATED URINE. BACK TO BED, PAUL FAIR. NO FURTHER NEEDS.
[2023-04-12 08:52] VITALS: BP 121/65
--- NOTE | 2023-04-12 09:24 | NUR ---
PT RESTING IN BED WITH HEATING PACKS TO PELVIS. PT AND OT IN TO SEE PT.
--- NOTE | 2023-04-12 10:00 | NUR ---
ROUNDS. PT EXPRESSED ANXIETY RELATED TO INJURY AND RECOVERY. PROVIDED ANXIETY CONTAINMENT; LISTENED EMPATHETICALLY; ENCOURAGED FOCUS ON PRESENT; PROVIDED PRAYER. PT EXPRESSED APPRCIATION.
--- NOTE | 2023-04-12 10:59 | NUR ---
PT UP TO COMMODE WITH 1 PERSON ASSIST.
--- NOTE | 2023-04-12 11:03 | NUR ---
PT C/O NAUSEA, MED GIVEN.
[2023-04-12 11:32] VITALS: BP 121/65
--- NOTE | 2023-04-12 11:35 | NUR ---
PT ASLEEP WITH RESPIRATIONS EVEN AND UNLABORED.
[2023-04-12] MEDS ORDERED: DICLOFENAC SODI75 MG PO (11:51)
[2023-04-12] MEDS ORDERED: DULOXETINE HCL30 MG PO (11:52)
[2023-04-12] MEDS ORDERED: FUROSEMIDE20 MG PO (11:53)
[2023-04-12] MEDS ORDERED: LAMOTRIGINE200 MG PO (11:54)
[2023-04-12] MEDS ORDERED: ONDANSETRON ODT8 MG PO (11:54)
[2023-04-12] MEDS ORDERED: TIZANIDINE HCL2 MG PO (11:55)
[2023-04-12] MEDS ORDERED: LISINOPRIL5 MG PO (11:57)
[2023-04-12] MEDS ORDERED: SUCRALFATE1 GM PO (11:58)
[2023-04-12] MEDS ORDERED: PANTOPRAZOLE SO40 MG PO (12:00)
--- NOTE | 2023-04-12 12:02 | NUR ---
INTO PATIENT ROOM. PATIENT RETURNING TO BED WITH STAFF ASSIST. PATIENT STATES SHE LIVES IN A HOME WITH HER FRIEND. PATIENT BECOMES TEARFUL STATING "HE IS VERY COLD AND DOESN'T HELP ME." ASKED IF PATIENT FEELS SAFE RETURNING HOME. PATIENT DOES STATES SHE FEELS SAFE, BUT DOES NOT FEEL HE WILL BE OF ANY HELP TO HER. PATIENT LIVES IN A 1 STORY HOME WITH [employer]. PATIENT DID NOT REQUIRE ANY MOBILITY DME PRIOR TO HER FALL, BUT DOES HAVE A CPAP AT HOME. PATIENT IS CURRENTLY ON 02 @ 2L WHICH IS NOT CHRONIC FOR HER. DISCUSSED DISCHARGE PLAN. PATIENT IS FEARFUL OF DISCHARGE TO HOME AND BECOMES TEARFUL. PATIENT STATES SHE DOES NOT HAVE ANY FRIEND OR FAMILY WHO CAN ASSIST HER AT THIS TIME. DISCUSSED THAT AT THIS TIME THE PATIENT IS HERE ON OBS AND WOULD NOT QUALIFY FOR SNF PLACEMENT WITHOUT AN INPATIENT STAY. PATIENT IS VERY TEARFUL ABOUT THIS. DISCUSSED THE POSSIBILTY OF INPATIENT KELIN AT [facility], PATIENT IS AGREEABLE. WILL DISCUSS PATIENT FURTHER WITH DR. ENGLAND AND PT. ALL DEMOGRAPHIC INFORMATION UPDATED. PATIENT IS ESTABLISHED WITH DR. NOYOLA. WILL CONTINUE TO VISIT WITH PATIENT DURING HER STAY.
--- NOTE | 2023-04-12 12:53 | NUR ---
pt up to commode to void 325 ml urine. pt back in bed eating lunch. states pain at 7 while laying in bed, states is tolerable at this time.
--- NOTE | 2023-04-12 13:56 | NUR ---
CHART FAXED TO LOIDA AT [facility] FOR REVIEW.
[2023-04-12] MEDS ORDERED: VITAMIN C500 M4 PO (14:10)
[2023-04-12] MEDS ORDERED: PRENATAL FORMU1 EAC2 PO (14:10)
[2023-04-12] MEDS ORDERED: VITAMIN D325 MCG PO (14:10)
[2023-04-12 14:11] VITALS: BP 112/51
[2023-04-12] MEDS ORDERED: VITAMIN B-650 MG PO (14:11)
--- NOTE | 2023-04-12 14:11 | NUR ---
MED REC COMPLETE
--- NOTE | 2023-04-12 14:24 | NUR ---
PT ASLEEP IN BED, RESPIRATIONS EVEN AND UNLABORED.
--- NOTE | 2023-04-12 15:32 | NUR ---
ACETAMINOPHEN GIVEN FOR HEADACHE. PT UP TO COMMODE WITH ELY AND RAMONE
--- NOTE | 2023-04-12 15:39 | NUR ---
DR DAMON IN TO VISIT WITH PT
--- NOTE | 2023-04-12 17:00 | NUR ---
NORCO GIVEN FOR PELVIC, HIP, AND BACK PAIN. PT STATES DIET PEPSI (CAFFEINE), AND TYLENOL RELIEVED HER HEADACHE.
[2023-04-12 17:23] VITALS: BP 130/70
--- NOTE | 2023-04-12 18:47 | NUR ---
PT ASLEEP WITH RESPIRATIONS EVEN AND UNLABORED.
--- NOTE | 2023-04-12 19:39 | NUR ---
PT CALLS TO USE BSC. 1PA, FWW TO BSC AND BACK TO BED. PT TOLERATED WELL. PT DECLINES SCDs AT THIS TIME. PT STATES NO OTHER NEEDS. CALL LIGHT IN REACH.
--- NOTE | 2023-04-12 20:05 | NUR ---
CALL LIGHT ANSWERED. PATIENT C/O HOT IN THE ROOM. CHECKED RM TEMP IS 74. PATIENT WANTED IT DOWN TO 73. PATIENT PROVIDED WITH BED RAIL CLIP SMALL FAN.
--- NOTE | 2023-04-12 21:26 | NUR ---
PT CALLS FOR HEAT PACK FOR HER HIP, PROVIDED. PT STATES NO OTHER NEEDS AT THIS TIME. CALL LIGHT IN REACH.
--- NOTE | 2023-04-12 21:46 | NUR ---
pt up to bsc, fww 1pa. pt back to bed. primary in room.
[2023-04-12 21:58] VITALS: BP 116/70
--- NOTE | 2023-04-12 22:39 | NUR ---
EVENING ASSESSMENT COMPLETE. SCHEDULED MEDS ADMIN PER EMAR. PT REPORTS PELVIC/HIP PAIN 12/21. PRN FOR PAIN ADMIN PER EMAR. WARM COMPRESS APPLIED TO HIP AREA. BLOOD SUGAR 91. SNACK PROVIDED. SpO2 99% ON 2L/NC. OXYGEN TITRATED TO 1L/NC. NO FURTHER NEEDS. CALL LIGHT IN REACH.
[2023-04-13] VITALS (9 sets, daily range): BP systolic 105–148; BP diastolic 56–71
--- NOTE | 2023-04-13 01:02 | NUR ---
PT RESTING IN BED WITH EYES CLOSED. RESPIRATIONS EVEN. CALL LIGHT IN REACH.
--- NOTE | 2023-04-13 02:00 | NUR ---
PATIENT CALLED STATING I NEED TO GO TO THE BATHROOM REALLY BAD. 1 PA USING WALKER TO THE BEDSIDE COMMODE AND BACK TO BED. ASSISTED PATIENT MOVING HER LEGS OUT OF THE BED AND BACK. WARM PACK PROVIDED FOR RIGHT SIDE HIP PER PATIENT. O2NC BACK ON. CALL LIGHT WITHIN REACH.
--- NOTE | 2023-04-13 04:40 | NUR ---
CALL LIGHT ANSWERED. PT REQUESTING PAIN MEDICATION. PRN FOR 10/10 PELVIC/HIP PAIN ADMIN PER EMAR. VS AND I&O OBTAINED. NO FURTHER NEEDS.
--- NOTE | 2023-04-13 07:10 | NUR ---
REPORT RECEIVED FROM BLUE PRINTS TRIMMER RN EFRA. PATIENT IS SITTING UPRIGHT IN BED WITH [address] PATIENT STATED NO NEEDS AT THIS TIME. CALL LIGHT AND PERSONAL BELONGINGS ARE WITHIN REACH.
--- NOTE | 2023-04-13 10:37 | NUR ---
LEFT MESSAGE FOR LOIDA AT [facility] TO CHECK ON REFERRAL STATUS.
--- NOTE | 2023-04-13 10:49 | NUR ---
RECVD CALL FROM LOIDA AT [facility], PATIENT HAS BEEN DECLINED AT THIS TIME.
--- NOTE | 2023-04-13 11:42 | NUR ---
PATIENT FULL ASSESSMENT COMPLETE AND DOCUMENTED IN THE CHART. LUNG SOUNDS ARE CLEAR IN THE UPPER LOBES AND DIMINISHED IN THE LOWER LOBES BILATERALLY. PATIENT ON 1 L OF OXYGEN VIA NASAL CANNULA. CARDIAC ASSESSMENT WITH A MURMUR AUSCULTATED. RADIAL AND PEDAL PULSES ARE STRONG BILATERALLY. CAPILLARY REFILL IS LESS THAN 3 SECONDS IN THE UPPER AND LOWER EXTREMITIES BILATERALLY. BOWEL TONES ARE ACTIVE IN ALL FOUR QUADRANTS. PATIENT UP TO THE BEDSIDE COMMODE AND VOIDED 150 ML YELLOW URINE. PATIENT STATED PAIN IS 10/10. PATIENT GOT BACK INTO BED AND REPOSITIONED. HOT PACK IN PLACE ON THE RIGHT HIP. BRUISE NOTED ON THE RIGHT HIP/LEG. PATIENT WITH REDNESS IN THE SKIN FOLDS AND BARRIER CREAM APPLIED. PATIENT WITH BED BATH AND SHOWE CAP COMPLETE. PATIENT EMOTIONAL AT THIS TIME REGARDING DISCHARGE PLACEMENT. PATIENT STATED NO FURTHER NEEDS AT THIS TIME. CALL LIGHT AND PERSONAL BELONGINGS ARE WITHIN REACH.
--- NOTE | 2023-04-13 12:40 | NUR ---
PATIENT IS SITTING UPRIGHT IN BED AND LOOKING ON THEIR PHONE. PATIENT MEAL TRAY IS PLACED IN FRONT OF THEM AT THIS TIME. CALL LIGHT AND PERSONAL BELONGINGS ARE WITHIN REACH.
--- NOTE | 2023-04-13 14:25 | NUR ---
PATIENT WORKING WITH PT AND OT AT THIS TIME. PATIENT AND PT/OT STATED NO NEEDS AT THIS TIME.
--- NOTE | 2023-04-13 14:50 | NUR ---
PATIENT FINISHED WORKING WITH PT AND OT AND HAD COMPLAINTS OF CHEST PAIN AND DIZZINESS. WHILE WORKING WITH PT THEY REMOVED THE OXYGEN AND I WENT IN THE ROOM AND PUT IT BACK ON. PATIENT STATED PAIN WAS 10/10 IN THE RIGHT HIP AND PELVIS. PATIENT STATED THE CHEST PAIN WAS GONE BUT AT THE TIME IT WAS "SHARP AND THEN SORE WHEN IT WENT AWAY". PATIENT VITAL SIGNS TAKEN AND DOCUMENTED IN THE CHART. PATIENT STATED NO FURTHER NEEDS AT THIS TIME. CALL LIGHT AND PERSONAL BELONGINGS ARE WITHIN REACH. NOTIFIED OF THE EVENT.
--- NOTE | 2023-04-13 15:09 | NUR ---
PATIENT LYRICA AND PRN IV DILAUDID ADMINISTERED PER THE EMAR. PATIENT WITH PAIN RATED 10/10. PATIENT IV SITE IS CLEAN, DRY, AND INTAKE. IV SITE FLUSHED WELL. PATIENT IS ON 1.5 L NC DUE TO OXYGEN SATURATIONS BETWEEN 86-92%. PATIENT GIVEN A FRESH CUP OF ICE WATER. PATIENT STATED NO FURTHER NEEDS AT THIS TIME., CALL LIGHT AND PERSONAL BELONGINGS ARE WITHIN REACH.
--- NOTE | 2023-04-13 15:27 | NUR ---
UR NOTE [facility] GENERAL CRITERIA: OBSERVATION CARE (ISC) 04/11/23 MET OBSERVATION CARE ADMISSION 04/12/23 DOES NOT MEET DISCHARGE CRITERIA YET [facility] MUSCULOSKE[facility] (GRG) 04/13/23 MET CLINICAL INDICATIONS FOR ADMISSION TO INPATIENT CARE STAGE 1 AND STAGE 2 MET
--- NOTE | 2023-04-13 16:01 | NUR ---
PATIENT IS LYING IN BED WITH 1.5 L OXYGEN VIA NASAL CANNULA. PATIENT STATED PAIN WAS 8/10 WHEN ASKED. PATIENT STATED NO FURTHER NEEDS AT THIS TIME. CALL LIGHT AND PERSONAL BELONGINGS ARE WITHIN REACH.
--- NOTE | 2023-04-13 18:18 | NUR ---
PATIENT IS RESTING IN BED WITH THE HOB ELEVAED. PATIENT STATED PAIN WAS 5/10 WHEN ASKED. PATIENT IS ON 1.5 L NC AND HER OXYGEN SATURATION IS CURRENTLY AT 95%. PATIENT STATED NO FURTHER NEEDS AT THIS TIME. CALL LIGHT AND PERSONAL BELONGINGS ARE WITHIN REACH.
--- NOTE | 2023-04-13 19:40 | NUR ---
Pt called, c/o rectal itching. took attends out. stood edge of bed 1PA/FWW red gluteal cleft, lotion applied. Coop wtih assessment. On 1.1.5LNC O2, lungs clear bilat, no c/o sob, IS at bedside. Bruised R hip, L arm and L below knee, no edema. Back to bed, tolerated well. SL RH, no c/o pain or n/v
--- NOTE | 2023-04-13 21:24 | NUR ---
PT. C/O 11/21 PAIN IN PELVIS RIGHT HIP AND BACK. GIVEN 1MG OF DALUDID.
--- NOTE | 2023-04-13 23:05 | NUR ---
HOB BED ELEVATED, 2L O2 VIA NC. RESTING WITH EYES CLOSED. NO C/O PAIN AT THIS TIME.
--- NOTE | 2023-04-14 00:09 | NUR ---
PT UP TO BSC , VOIDED QS. BACK TO BED 1PA/FWW. C/O BACK, PELVIS AND R HIP 10 PAIN. MEDICATED WITH DILAUDID 1MF IV
--- NOTE | 2023-04-14 02:32 | NUR ---
resating, hob elevated , o2 in place 2lnc, no s/sx distress. repositions self in bed
--- NOTE | 2023-04-14 04:20 | NUR ---
Patient laying on back with eyes closed. No c/o pain or discomfort.
[2023-04-14 04:50] VITALS: BP 135/63
--- NOTE | 2023-04-14 05:07 | NUR ---
Patient was medicated at this time with 1mg IV Dilaudid 9/10 pain in pelvis, right hip and back. Medicated 3 times this shift with good pain relief. O2 on 2L via NC. Up to BSC with FWW 1 PA voiding QS. Bruising to right hip, left knee and left arm improving. Redness to buttocks, lotion applied. No c/o NV.
[2023-04-14 05:17] LABS: BASOPHILS 0.9 % (0-2); EOSINOPHILS 1.7 % (0-6); HEMOGLOBIN 11.4 g/dL (12.0-18.0); LYMPHOCYTES 29.2 % (24-44); MCH 28.6 (27-36); MCHC 33.5 g/dl (30-36); MCV 85.4 fl (81-99); MONOCYTES 7.2 % (0-12); PLATELET COUNT 258 K/uL (140-440); RBC 3.98 M/ul (4.3-5.7); RDW 14.4 (10.5-15.0)
[2023-04-14 06:36] LABS: ALBUMIN 2.7 g/dL (3.4-5.0); ALBUMIN/GLOBULIN RATIO 0.73 (1.1-2.4); ANION GAP 8.7 (7-21); BILIRUBIN, TOTAL 0.5 ng/dL (0.2-1.0); BUN/CREATININE RATIO 13.23 (6.0-28.6); CALCIUM 9.5 mg/dL (8.5-10.1); CREATININE, SERUM 0.68 mg/dL (0.55-1.02); MAGNESIUM 1.3 mg/dL (1.8-2.4); POTASSIUM 4.7 mmol/L (3.5-5.1); PROTEIN, TOTAL 6.4 g/dL (6.4-8.2)
--- NOTE | 2023-04-14 07:10 | NUR ---
REPORT RECEIVED FROM AVTAR LANE. PT RESTING IN BED SEMI-FOWLERS. EYES CLOSED. RR EVEN AND UNLABORED. NO NEEDS IDENTIFIED AT THIS TIME. CALL LIGHT IN REACH.
--- NOTE | 2023-04-14 08:13 | NUR ---
IN TO ADMINISTER MEDICATIONS, SEE MAR. PT TAKES PO MEDICATIONS WITH NO ISSUES. PT SITTING UP IN BED AND RESPONDS WHEN ADDRESSED. PT REPORTING PAIN 9/10 IN PELVIC/GROIN AREA, PRN PAIN MEDICATION ADMINISTERED, SEE MAR. BREAKFAST TRAY ARRIVES. PT DENIES FEELING LIGHTHEADED OR DIZZY AT THIS TIME. PT DENIES ANY OTHER NEEDS AT THIS TIME. CALL LIGHT IN REACH.
[2023-04-14 09:16] VITALS: BP 116/64
--- NOTE | 2023-04-14 10:16 | NUR ---
IN TO ROUND ON PT. PT SITTING UP IN BED RESTING. RR EVEN AND UNLABORED. PT RESPONDS WHEN ADDRESSED. PT REPORTING PAIN 09/20. ASSESSMENT COMPLETE. LUNG SOUNDS CLEAR. BOWEL TONES ACTIVE. CMS INTACT. PT DENIES ANY OTHER NEEDS AT THIS TIME. CALL LIGHT IN REACH.
--- NOTE | 2023-04-14 10:49 | NUR ---
IN PT REQUESTING PRN PAIN MEDICATION. PT REPORTING PAIN 7/10 IN PELVIC AREA. PRN PAIN MEDICATION ADMINISTERED, SEE MAR. PT DENIES ANY OTHER NEEDS AT THIS TIME. CALL LIGHT IN REACH.
--- NOTE | 2023-04-14 11:37 | NUR ---
IN TO ADMINISTER MEDICATION, SEE MAR. PT SITTING UP IN BED AND RESPONDS WHEN ADDRESSED. PHYSICAL THERAPY IN ROOM. PT DENIES ANY OTHER NEEDS AT THIS TIME. CALL LIGHT IN REACH.
[2023-04-14 13:09] VITALS: BP 106/55
--- NOTE | 2023-04-14 13:27 | NUR ---
IN TO ROUND ON PT. PT SITTING UP IN BED WITH EYES CLOSED, RR EVEN AND UNLABORED. IV INFUSING WNL. PT OPENS EYES AND GREETS THIS RN WHEN THIS RN CHECKS IV SITE. PT DENIES ANY NEEDS AT THIS TIME. CALL LIGHT IN REACH.
--- NOTE | 2023-04-14 15:46 | NUR ---
IN TO ROUND ON PT. PT REPORTING PAIN AT IV SITE. SITE NOTED TO BE LEAKING. IV REMOVED WNL. NEW IV PLACED. ASSESSMENT COMPLETE. PT REPORTING PAIN 10/10. PRN PAIN MEDICATION ADMINISTERED PREVIOUSLY. PT REFUSES PO PAIN MEDICATION WHEN OFFERED. PEDAL PULSES PALPABLE AND EQUAL BILATERALLY. PT REPORTS NUMBNESS AND TINGLING IN BILATERAL FEET, PT STATES "CHRONIC." LUNG SOUNDS CLEAR. BOWLE TONES ACTIVE. BRUISING NOTED TO BUE SCATTERED. BRUISE NOTED TO TOP OF RIGHT FOOT. PT DENIES ANY OTHER NEEDS AT THIS TIME. CALL LIGHT IN REACH.
--- NOTE | 2023-04-14 16:33 | NUR ---
I HELPED HER GET IN THE BEDSIDE COMODE A COUPLE OF TIMES. SHE WAS GOOD WITH IT ONLY STRUGGLED ONCE.
[2023-04-14 17:21] VITALS: BP 96/55
--- NOTE | 2023-04-14 17:36 | NUR ---
IN TO ROUND ON PT. PT RESTING IN BED. PT RESPONDS WHEN ADDRESSED. PTs PHONE RINGING. PT HANDED PHONE. NO OTHER NEEDS REPORTED OR IDENTIFIED AT THIS TIME. CALL LIGHT IN REACH.
--- NOTE | 2023-04-14 18:40 | NUR ---
IN TO ROUND ON PT. PT SITTING UP IN BED SEMI-FOWLERS. EYES CLOSED, RR EVEN AND UNLABORED. NO NEEDS IDENTIFIED AT THIS TIME. CALL LIGHT IN REACH.
--- NOTE | 2023-04-14 19:27 | NUR ---
SHIFT REPORT RECEIVED FROM DAYSHIFT AVTAR ERNST AT BEDSIDE, pt AWAKE AND RESTING IN BED. ON RA, RR EVEN AND UNLABORED. NO DISTRESS NOTED. SALINE LOCKED. pt RECENTLY GIVEN PRN PAIN MEDICATIONS, DENIES NEEDS OR CONCERNS. CALL LIGHT IN REACH, BOARD UPDATED.
[2023-04-14 21:03] VITALS: BP 118/65
--- NOTE | 2023-04-14 21:26 | NUR ---
ROUNDED ON pt, pt AWAKE AND RESTING IN BED. VSS, pt REPORTS COMFORT IN BED AT THIS TIME. DENIES NAUSEA, BOWEL TONES ACTIVE. SCD'S OFF AT THIS TIME PER pt REQUEST, EDUCATION PROVIDED. FRESH WATER ALSO GIVEN. ACCUCHECK COMPLETED, NO INSULIN SS REQUIRED PER EMAR. IV SITE WNL, BRISK BLOOD RETURN NOTES-SITE FLUSHED AND SALINE LOCKED PER POLICY. NO ADDITIONAL NEEDS OR CONCERNS VERBALIZED, pt DENIES HAVING A BOWEL MOVEMENT SICE ARRIVING TO HOSPITAL, BUT REPORTS PASSING GAS IN BED RECENTLY. SCHEDULED BOWEL MEDS PROVIDED. CALL LIGHT ALONG WITH PERONAL BELONINGS IN REACH OF pt.
--- NOTE | 2023-04-14 22:42 | NUR ---
pt RESTING IN BED ON 1LNC, RR EVEN AND UNLABORED WITH NO DISTRESS NOTED. CALL LIGHT IN REACH.
--- NOTE | 2023-04-14 23:14 | NUR ---
PT CALLED, UP TO BSC, CAROL ASSISTANCE, GETTING IN AND OUT OF BED. DEPENDENT ON CLEANING AFTER VOIDING, AND LIFTING PT LEGS INTO BED. ALL PERSONAL SUPPLIES WITHIN REACH.
--- NOTE | 2023-04-14 23:32 | NUR ---
INFORMED BY HOUSE SERVANT, pt REPORTS 11/21 LOWER BACK, HIP, PELVIC PAIN, PRN PAIN MEDICATION GIVEN-SEE EMAR. NO ADDITIONAL NEEDS OR CONCERNS VERBALIZED, CALL LIGHT IN REACH.
[2023-04-15] VITALS (7 sets, daily range): BP systolic 96–124; BP diastolic 53–68
--- NOTE | 2023-04-15 00:10 | NUR ---
IN ROOM TO ROUND ON pt FOLLOWING PAIN MEDICATION. pt RESTING IN BED WITH EYES CLOSED, ON RA-RR EVEN AND UNLABORED WITH NO DISTRESS NOTED. CALL LIGHT IN REACH.
--- NOTE | 2023-04-15 01:45 | NUR ---
FLOAT RN IN ROOM TO GIVEN PRN PAIN MEDICATION FOLLOWING pt TRANSFER TO BSC TO VOID. pt IN BED, CALL LIGHT IN REACH. WILL CONTINUE TO MONITOR.
--- NOTE | 2023-04-15 03:10 | NUR ---
pt resting in bed with eyes closed, on 1lnc. rr even and unlabored with no distress. call light in reach.
--- NOTE | 2023-04-15 05:13 | NUR ---
CALL LIGHT ANSWERD, PRN PAIN MEDICATION GIVEN FOR REPORTED 10/10 PAIN-SEE EMAR. VSS AND I&O'S COLLECTED, FRESH ICE WATER PROVIDED AND CALL LIGHT IN REACH. NO REDDNESS NOTED TO COCCYX W/ ASSESSMENT. NO ADDITIONAL NEEDS OR CONCERNS VERBALZIED.
--- NOTE | 2023-04-15 05:45 | NUR ---
ROUNDED ON pT FOLLOWING PRN PAIN MEDICATION ADMINISTRATION, pt RESTING IN BED WITH EYES CLOSED, ON RA, RR EVEN AND UNLABORED. CALL LIGHT IN REACH.
--- NOTE | 2023-04-15 07:07 | NUR ---
PRN PAIN MEDICATION GIVEN FOR REPORTED 8-9/10 PAIN, SEE EMAR. NO ADDITIONAL NEEDS OR CONCERNS, PRN PAIN MEDICATION GIVEN OVER 5+ MINUTES AND DILUTED IN NS, IV SITE WNL. CALL LIGHT IN REACH.
--- NOTE | 2023-04-15 07:15 | NUR ---
REPORT RECEIVED FROM AVTAR WHALEN. PT SITTING UP IN BED WITH EYES CLOSED, RR EVEN AND UNLABORED. PT AWAKENS WHEN THIS RN ENTERS ROOM. PT DENIES ANY NEEDS AT THIS TIME. CALL LIGHT IN REACH.
--- NOTE | 2023-04-15 08:45 | NUR ---
IN WITH KLEVER NOVA TO DO INITIAL ASSESSMENT AND ADMINISTER MEDICATIONS PER MAR. PATIETN LUNG SOUNDS CLEAR BILATERALLY, HEART SOUNDS WNL, BOWEL SOUNDS PRESENT BUT PATIENT STATES NOT HAVING A BOWEL MOVEMENT IN SEVERAL DAYS. PATIENT'S PULSES STRONG IN ALL EXTREMETIES, MILD EDEMA TO BLE. PAIN IN RIGHT LEG/FOOT RATED A 6/10. MEDICATION OFFERED AND ACCEPTED, SEE MAR. PATIENT IV FLUSHES WITH SOME MANIPULATION, NO PAIN, WNL. PATIENT UP IN RECLINER WITH BREAKFAST, CALL LIGHT WITHIN REACH AND NO FUTHER NEEDS STATED AT THIS TIME.
--- NOTE | 2023-04-15 08:47 | NUR ---
IN WITH SN JUANA TO ADMINISTER MEDICATIONS, SEE MAR. PT SITTING UP IN RECLINER WITH BREAKFAST TRAY AND RESPONDS WHEN ADDRESSED. PT REPROTING PAIN 08/21, PRN PAIN MEDICATION ADMINISTERED PREVIOUSLY, SEE MAR. PT REPORTING FEET PAIN, PT STATES "I THINK IT IS BECASUE MY FEET ARE HANGING ON THE EDGE." PILLOW PLACED UNDER PTs BLE AND PT STATES "THAT IS PERFECT, THANK YOU." PT TAKES PO MEDICATIONS WITH NO ISSUES. ASSESSMENT COMPLETE. LUNG SOUNDS CLEAR. BOWEL TONES ACTIVE. PEDAL PULSES PALPABLE AND EQUAL BILATERALLY. BRUISING NOTED TO BILATERAL ARMS, SCATTERED. BRUISE NOTED TO TOP OF RIGHT FOOT. EDEMA NOTED TO BILATERAL ANKLES. IV FLUSHES WNL. PT SL AT THIS TIME. AWAITING FOR IV MAGNESIUM TO SHOW UP IN PIXIS. PT ON 1L NC WITH O2 SATS 91-94%. PT REQUESTING TO GET BACK INTO BED. SBA WITH FWW FROM RECLINER TO BED. PILLOW PLACED UNDER BLE. PT DENIES ANY OTHER NEEDS AT THIS TIME. CALL LIGHT IN REACH.
--- NOTE | 2023-04-15 08:48 | NUR ---
BOILER/CHILLER TECHNICIAN ENTERED ROOM TO GREET PT IN THE MORNING. PT RECEIVED A WET WASHRAG FOR HER FACE. PT REQUESTED HELP GETTING TO HER BEDSIDE COMMODE AND INTO HER CHAIR FOR BREAKFAST. PT HAD AN OUTPUT, BOILER/CHILLER TECHNICIAN RECORDED THIS ON THE PATIENT BOARD. PT RECEIVED A CLEAN BRIEF FOR THE MORNING. BOILER/CHILLER TECHNICIAN CHANGED THE BED LINENS. CALL LIGHT WITHIN REACH PT STATES NO COMPLAINTS.
--- NOTE | 2023-04-15 09:16 | NUR ---
IN WITH SN JUANA TO ADMINISTER MEDICATION, SEE MAR. JENNA CNA IN ROOM OBTAINING VITALS. PT SITTING UP IN BED AND RESPONDS WHEN ADDRESSED. PT DENIES ANY OTHER NEEDS AT THIS TIME. CALL LIGHT IN REACH. MURALI WEST STILL IN ROOM WITH PT.
--- NOTE | 2023-04-15 09:21 | NUR ---
STATISTICIAN APPLIED RECORDED VITAL SIGNS AND I AND OS. CALL LIGHT WITHIN REACH
--- NOTE | 2023-04-15 10:48 | NUR ---
IN WITH SN JUANA PT REPORTING PAIN 10/10 IN PELVIC AREA. PRN PAIN MEDICATION ADMINISTERED, SEE MAR. PT SITTING UP IN BED. PT RESPONDS WHEN ADDRESSED. PT DENIES ANY OTHER NEEDS AT THIS TIME. CALL LIGHT IN REACH.
--- NOTE | 2023-04-15 10:51 | NUR ---
TOWNSHIP SUPERVISOR ASSISTED PT ONTO COMMODE. PT REQUESTED A BED BATH. TOWNSHIP SUPERVISOR GAVE A BED BATH FROM THE WAIST UP. PT SAID SHE WAS IN TOO MUCH PAIN TO DO HER LOWER BODY. PERICARE DONE WHEN PT WAS ON THE COMMODE. RN NOTIFIED OF PT PAIN. NO CONCERNS AT THIS TIME. CALL LIGHT WITHIN REACH
--- NOTE | 2023-04-15 12:03 | NUR ---
IN WITH SN JUANA TO ROUND ON PT. PT SITTING UP IN BED RESTING WITH EYES CLOSED, RR EVEN AND UNLABORED. PT OPENS EYES AND ADDRESSES THIS RN AND SN JUANA. PT REPORTING PAIN 7/10 IN PELVIC AREA. PRN PAIN MEDICATION ADMINISTERED, SEE MAR. PT SITTING UP IN BED. WATER PROVIDED. PT DENIES ANY OTHER NEEDS AT THIS TIME. CALL LIGHT IN REACH.
--- NOTE | 2023-04-15 12:25 | NUR ---
ASSISTED PATIENT TO BSC AND BACK INTO BED WITH FFW. PATIENT TOLERATED TRANSFER WELL. PATIENT IN BED, UP TO EAT LUNCH. CALL LIGHT IN LAP, NO OTHER NEEDS NOTED AT THIS TIME.
--- NOTE | 2023-04-15 13:37 | NUR ---
IN TO ADMINISTER PRN PAIN MEDICATION PT REPORTING PAIN 10/21. PT SITTING UP IN BED AND RESPONDS WHEN ADDRESSED. PT DENIES ANY OTHER NEEDS AT THIS TIME. CALL LIGHT IN REACH. PRN PAIN MEDICATION ADMINISTERED, SEE MAR.
--- NOTE | 2023-04-15 14:02 | NUR ---
SPOKE TO PATIENT ABOUT THE DISCHARGE PLAN. PATIENT IS TEARY EYED STATING HER BOYFRIEND IS NOT HER BOYFRIEND ANY MORE, HE IS JUST A FRIEND. PATIENT STATES THAT SHE WILL SHARE AN APARTMENT WITH HER OLD BOYFRIEND, ONLY LAST CHOICE. PATIENT STATES SHE WILL CALL A GIRLFRIEND TO SEE IF THE GIRLFREIND WILL HELP AT DISCHARGE. PATIENT STATES SHE HAS $900 DOLLARS A MONTH TO LIVE ON. THE PATIENT WILL THINK OVER THE WEEKEND ABOUT WHAT SHE WILL DO IF DISCHARGED.
--- NOTE | 2023-04-15 14:41 | NUR ---
IN WITH SN JUANA. IN TO ADMINISTER MEDICATION, SEE MAR. PT SITTING UP IN BED AND RESPONDS WHEN ADDRESSED. PT TAKES PO MEDICATION WITH NO ISSUES. PT REPORTING PAIN 6/10 IN PELVIC AREA. PHYSICAL THERAPY IN ROOM TO WORK WITH PT. ASSESSMENT COMPLETE. LUNG SOUNDS CLEAR. PEDAL PULSES PALPABLE AND EQUAL BILATERALLY. PT DENIES ANY OTHER NEEDS FROM THIS RN. PHYSICAL THERAPY IN ROOM WITH PT.
--- NOTE | 2023-04-15 15:52 | NUR ---
SPOKE TO PATIENT ABOUT THE DISCHARGE PLAN. PATIENT WANTS TO GO TO SNF FOR REHAB. CARYN PRITCHETT CALLED PER PATIENT CHOICE AND WILL HAVE A BED ON TUESDAY.
--- NOTE | 2023-04-15 15:59 | NUR ---
IN PT REPORTING PAIN. PT REPORTING PAIN 11/21. PRN PAIN MEDICATION ADMINISTERED, SEE MAR. PT STATES "I FEEL A LITTLE SICK." ASKED PT IF PT FEELS NAUSEOUS AND PT STATES "YES." PRN NAUSEA MEDICAITON ADMINISTERED, SEE MAR. PT SITTING UP IN BED. PT DENIES ANY OTHER NEEDS AT THIS TIME. CALL LIGHT IN REACH.
--- NOTE | 2023-04-15 16:24 | NUR ---
VERBAL ORDERS RECEIVED FROM DR. FOLEY, VERIFIED WITH READ BACK.
--- NOTE | 2023-04-15 17:43 | NUR ---
IN PT REPORTING PAIN 9/10 IN PELVIC AREA AND IN R ANKLE. PRN MEDICATION ADMINISTERED, SEE MAR. PT SITTING UP IN BED. PUDDING PROVIDED FOR SNACK. PT DENIES ANY OTHER NEEDS AT THIS TIME. CALL LIGHT IN REACH. PT SITTING UP IN BED.
--- NOTE | 2023-04-15 18:30 | NUR ---
BANQUET COORDINATOR ENTERED ROOM TO TAKE PT VITALS AND I&OS. PT WAS LAYING DOWN RESTING. PT BARELY ATE HER DINNER. BANQUET COORDINATOR ASKED PT IF SHE WOULD LIKE TO EAT MORE OR LIKE IT HEATED UP, PT REFUSED. PT REFUSED NEEDING TO USE THE COMMODE. NO COMPLAINTS OR CONCERNS. CALL LIGHT WITHIN REACH.
--- NOTE | 2023-04-15 18:49 | NUR ---
IN TO ROUND ON PT. PT SITTING UP IN BED ON PHONE. PT RESPONDS WHEN ADDRESSED. PT REPORTING PAIN 5/10. PT DENIES ANY OTHER NEEDS AT THIS TIME. CALL LIGHT IN REACH.
--- NOTE | 2023-04-15 19:04 | NUR ---
SHIFT REPORT RECEIVED KLEVER NOVA, PT RESTING QUIETLY WITHOUT REQUESTS.
--- NOTE | 2023-04-15 20:45 | NUR ---
PT AWAKEN AND ALERT, VS DONE AND STABLE, PT ASSISTED UP TO BSC TO VOID, 1PA, PAINFUL IN PELVIS WITH MOVEMENT BUT ABLE TO TRANSFER SELF WITH LIMITED ASSIST BY RN, VOIDING WELL, 600ML URINE, RT MEDS GIVEN, ACCUCHECK 106, NO SS REQUIRED AT THIS TIME.
--- NOTE | 2023-04-15 21:25 | NUR ---
PT REQUESTING PAIN MED FOR GENERALIZED PAIN 10/21, PT DECLINES NORCO AND WANTS DILAUDID, PT MEDICATED WITH 1MG IV PER ORDER, SL INTACT AND FLUSHES WELL, PT VOICES CONCERNS ABOUT NOT FEELING READY TO GO HOME UNTIL SHE IS BETTER AND APPEDITE IS BETTER, SUPPORT GIVEN, ASSESSMENT COMPLETED. PT ATTEMPTING TO REST, SCDS REPLACED,
--- NOTE | 2023-04-15 21:25 | NUR ---
PT STATES SHE WEARS CPAP AT HOME BUT DECLINES TO HAVE IT AT HOSPITIAL, STATES SHE WILL BE FINE WITH JUST OXYGEN ON, OXYGEN CONTS AT 1L/NC, PLAN TO DO SPOT CHECKS ON OXY SATS.
--- NOTE | 2023-04-15 22:14 | NUR ---
SCD'S OFF PER pt REQUEST.
[2023-04-16] VITALS (7 sets, daily range): BP systolic 101–125; BP diastolic 53–68
--- NOTE | 2023-04-16 00:01 | NUR ---
PT APPEARS TO SLEEP, RESP EVEN AND REG, WITHOUT DISTRESS.
--- NOTE | 2023-04-16 01:08 | NUR ---
RN CALLED TO ROOM, PT REQUESTING PAIN MED FOR GENERALIZED PAIN 12/21, PT GRIMACING WITH PAIN, PT MEDICATED WITH DILAUDID 1MG IV PER ORDER PER PT REQUEST, OXY SAT CHECKED, SAT 90% ON 1 L NC, OXYGEN TURNED UP TO 2L/NC, SATS RISING TO 97%. PT RESTING WITH HOB ELEVATED, PT DENIES OTHER REQUESTS, RESTING WITH EYES CLOSED.
--- NOTE | 2023-04-16 02:15 | NUR ---
PT ASLEEP, RESP EVEN AND REG, OXYGEN REMAINS IN PLACE.
--- NOTE | 2023-04-16 03:35 | NUR ---
PT ASLEEP, RESP EVEN AND REG.
--- NOTE | 2023-04-16 04:06 | NUR ---
prn pain medication given for reported 10/10 pain-see emar. iv site wnl, call light in reach.
--- NOTE | 2023-04-16 04:35 | NUR ---
PT AWAKE, APPEARS VERY UNCOMFORTABLE, MEDICATED WITH DILAUDID 1MG PER REQUEST FOR PAIN 10/21, PT PLACED ON CPOX AND OXYGEN INCREASED TO 3L FOR SAT OF 90-91%
--- NOTE | 2023-04-16 05:45 | NUR ---
PT AWAKE, DROWSY BUT COMFORTABLE OXY SAT 97% OXYGEN DECREASED TO 2.5L/NC, PT RESTING, ASSESSMENT COMPLETED.
--- NOTE | 2023-04-16 06:22 | NUR ---
WARM PACK GIVEN PER PT REQUEST TO RIGHT HIP, PT ATTEMPTING TO REST.
--- NOTE | 2023-04-16 07:15 | NUR ---
REPORT FROM AVTAR RICHARD. PATIENT RESTING SEMI-FOWLERS IN BED, EYES CLOSED, RR EVEN. C-POX NOTED TO LEFT HAND AND AT 93% ON 2.5L. CALL LIGHT IN REACH, NO NEEDS INDENTIFIED AT THIS TIME.
--- NOTE | 2023-04-16 07:20 | NUR ---
REPORT RECEIVED FROM JOSE MANUEL Alaniz RN. PT SITTING UP IN BED SEMI-FOWLERS. EYES CLOSED, RR EVEN AND UNLABORED. O2 SATS AT 93% ON 2.5L NC. NO NEEDS IDENTIFIED AT THIS TIME. CALL LIGHT IN REACH.
--- NOTE | 2023-04-16 07:35 | NUR ---
PATIENT UP TO BSC. SATS ARE DROPPING DURING TRANSFERS, NOTED PATIENT IS HOLDING BREATH WHILE TRANSFERRING. ENCOURAGED DEEP BREATHS AND PATIENT SATS RETURNED TO MID 90S. PATIENT DID NOT VOID OR HAVE BOWEL MOVEMENT ON BSC. PATIENT BACK TO BED, CALL LIGHT IN REACH, NO OTHER NEEDS NOTED AT THIS TIME.
--- NOTE | 2023-04-16 09:18 | NUR ---
IN WITH SN JUANA TO ADMINISTER MEDICATIONS, SEE MAR. PT SITTING UP IN BED AND REPORTING PAIN 10/10 IN PELVIC AREA AND BACK. PRN PAIN MEDICATION ADMINISTERED, SEE MAR. PT EDUCATION PROVIDED REGARDING PRN PAIN MEDICATION. PT NOTED TO BE TEARFUL REGARDING PRN DILAUDID BEING DC'd. PROVIDED MORE EDUCATION REGARDING PRN TORADOL AND PRN NORCO. PT AGREEABLE TO TRY TORADOL AND NORCO PRN. HOT PACK PROVIDED FOR HIP AND PELVIC AREA. ASSESSMENT COMPLETE. LUNG SOUNDS CLEAR. BOWEL TONES ACTIVE. PEDAL PULSES PALPABLE AND EQUAL IN STRENGTH. BRUISING NOTED TO RIGHT HIP. SCATTERED BRUISING NOTED TO BILATERAL ARMS. EDEMA NOTED TO BILATERAL ANKLES. BLE ELEVATED ON PILLOW IN BED. CPOX IN PLACE. PT ON 2.5L NC. O2 SATS AT 93%. IV FLUSHES WNL. PT DENIES ANY OTHER NEEDS AT THIS TIME. CALL LIGHT IN REACH.
--- NOTE | 2023-04-16 12:08 | NUR ---
ASSISTED PATIENT TO BED FROM RECLINER CHAIR, PATIENT HAS A PLEASANT AFFECT AND STATES SHE HAS HAD GAS AND IS HOPING TO HAVE A BOWEL MOVEMENT SOON. PATIENT HIGH FOWLERS IN PREPARATION FOR LUNCH, CALL LIGHT IN REACH, NO FURTHER NEEDS IDENTIFIED AT THIS TIME.
--- NOTE | 2023-04-16 13:14 | NUR ---
IN TO ROUND ON PT. PT SITTING UP IN BED EYES CLOSED, RR EVEN AND UNLABORED. CALL LIGHT IN REACH. NO NEEDS IDENTIFIED AT THIS TIME.
--- NOTE | 2023-04-16 14:13 | NUR ---
IN TO ROUND ON PT. PT SITTING UP IN BED HIGH FOWLERS. EYES CLOSED, RR EVEN AND UNLABORED. O2 SATS AT 91% ON 2L NC. NO OTHER NEEDS IDENTIFIED AT THIS TIME. CALL LIGHT IN REACH.
--- NOTE | 2023-04-16 15:04 | NUR ---
IN TO ADMINISTER MEDICAITON, SEE MAR. PT SITTING UP IN BED AND RESPONDS WHEN ADDRESSED. PT REPORTING PAIN 10/10. PRN PAIN MEDICAITON ADMINISTERED, SEE MAR. PT TAKES PO MEDICATIONS WITH NO ISSUES. PT TITRATED TO 1L NC O2 SATS ARE NOTED TO BED AT 96% ON 2L NC. PT O2 SATS AT 1L NC ARE BETWEEN 92-94%. ASSESSMENT COMPLETE. LUNG SOUNDS CLEAR. PEDAL PULSES PALPABLE. EDEMA NOTED TO BLE. PT REFUSES PILLOW TO ELEVATE. PT ACCEPTS ICE PACK. BRUISE NOTED TO MEDIAL CALF ON LLE. ICE WATER PROVIDED. PT DENIES ANY OTHER NEEDS AT THIS TIME. CALL LIGHT IN REACH.
--- NOTE | 2023-04-16 16:18 | NUR ---
IN TO ROUND ON PT. PT SITTING UP IN BED ON PHONE. NO NEEDS REPORTED AT THIS TIME. CALL LIGHT IN REACH. RR EVEN AND UNLABORED.
--- NOTE | 2023-04-16 16:25 | NUR ---
IN TO ANSWER CALL LIGHT. PT STATES "I WAS JUST CALLING TO SEE WHAT YOU (POINTING TO THIS RN) WANTED WHEN YOU POKED YOUR HEAD IN EARLIER." THIS RN EXPLAINS THIS RN WAS CHECKING ON PT. PT STATES "OH OK." PT REPORTING PAIN 08/21. PT SITTING UP IN BED. PT O2 SATS AT 95% ON 1L NC. NEW CPOX STICKER PLACED ON FINGER PREVIOUS STICKER "FELL OFF." PT DENIES ANY OTHER NEEDS AT THIS TIME. CALL LIGHT IN REACH.
--- NOTE | 2023-04-16 17:40 | NUR ---
IN TO ANSWER CALL LIGHT. PT REQUESTING PRN PAIN MEDICATION. PT REPORTING PAIN 9/10 IN PELVIC AREA AND BACK. PRN PAIN MEDICATION ADMINISTERED, SEE MAR. PT REPORING NOT WANTING TO EAT DINNER AND STATES "THIS IS NOT GOOD." OFFERED PUDDING PT STATES "I REALLY LIKE THE CHOCOLATE PUDDING." PUDDING AND ORANGE JUICE AND MILK PROVIDED. ICE PACK PROVIDED. PT SITTING UP IN BED. PT DENIES ANY OTHER NEEDS AT THIS TIME. CALL LIGHT IN REACH.
--- NOTE | 2023-04-16 19:02 | NUR ---
SHIFT REPORT RECEIVED FROM KLEVER RN AND STUDENT NURSE, PT ASLEEP AT THIS TIME RESP EVEN AND REG.
--- NOTE | 2023-04-16 19:15 | NUR ---
THIS RN TALKED TO DR. FOLEY REGARDING PTs MAGNESIUM LAB. VERBAL ORDERS RECEIVED, VERIFIED WITH READBACK.
--- NOTE | 2023-04-16 20:00 | NUR ---
PT AWAKE, VERBALIZES ANXIETY ABOUT GOING HOME TUESDAY AND STATES SHE WILL REFUSE IF SHE DOESN'T HAVE EVERYTHING AT HOME THAT IS NEEDED FOR CARE. DISCUSSED ASSESSMENT NURSE WILL HELP WITH ARRANGEMENTS, SUPPORT GIVEN, PT CALMING, PT ATTEMPTING TO REST.
--- NOTE | 2023-04-16 20:59 | NUR ---
CALL LIGHT ASNWERED, PT UP SBA WITH FWW TO BATHROOM AND BACK TO BED. REPORTS 7/10 PAIN, PRN TORADOL GIVEN-SEE EMAR. PRIMARY RN IN ROOM FOR EVENING MEDS/ASSESSMENT. VSS AND I&O'S COLLECTED. CALL LIGHT IN REACH.
--- NOTE | 2023-04-16 21:20 | NUR ---
PT AWAKE, ALERT, RT MEDS GIVEN, ACCUCHECK DONE AND IS 142, 1 U HUMOLOG GIVEN PER SS, SL IN RIGHT ARM INTACT AND FLUSHES WELL, MG 2GM STARTED PER ORDER TO INFUSE OVER 1 HOUR. PT CHEERFUL AT THIS TIME, DISCUSSED PLAN OF CARE FOR PAIN MEDS PO Q4 PRN. OXYGEN IN PLACE, CPOX REMAINS ON.
--- NOTE | 2023-04-16 23:00 | NUR ---
PT ASLEEP AT THIS TIME, RESP EVEN AND REG, CPOX 94%.
[2023-04-17] VITALS (7 sets, daily range): BP systolic 126–153; BP diastolic 68–81
--- NOTE | 2023-04-17 00:08 | NUR ---
Assisted patient with bedside commode and walker. Patient transferred slow and steady. Back to bed assisted with lifting feet back into bed. Brought her a warm blanket. Call light is within reach and nothing else is needed at this time.
--- NOTE | 2023-04-17 01:05 | NUR ---
PT ASSISTED UP TO BR, USED FFW WITH STAND BY ASSIST, PT VOIDED 900ML LIGHT YELLOW URINE, BACK TO BED, LEFT LEG ELEVATED ON 2 PILLOWS, PT WITHOUT C/O PAING, IV A/B INFUSING WELL, PT REQUESTING COFFEE, GIVEN PER REQUEST.
--- NOTE | 2023-04-17 01:39 | NUR ---
PT RESTING QUIETLY, RESP EVEN AND REG, OXY SAT 93%
--- NOTE | 2023-04-17 02:45 | NUR ---
RN CALLED TO ROOM, PT LOOKS UNCOMFORTABLE, C/O PAIN, MEDICATED WITH TORODOL PER ORDER, PT VERBALIZING CONCERNS WITH GOING HOME ON TUESDAY, SUPPORT GIVEN, ENCOURAGE PT TO ATTEMPT TO REST, PT WRITING A LIST OF ALL EQUIPMENT SHE WILL NEED TO GO HOME. PT SHOWING VARIOUS DEGREES OF EMOTIONS FROM TEARS TO LAUGHTER IN SHORT PERIODS, SUPPORT GIVEN.
--- NOTE | 2023-04-17 03:35 | NUR ---
call light answered, pillow asjusted per pt request for additional comfort behind right hip. fresh water provided. no further needs, call light inr each.
--- NOTE | 2023-04-17 04:40 | NUR ---
PT APPEARS TO SLEEP, RESP EVEN AND REG, CPOX AT 92%
--- NOTE | 2023-04-17 05:39 | NUR ---
PT AWAKE, VERY UNCOMFORTABLE, MEDICATED WITH 2 NORCO FOR PAIN, 10/10, PT ASSISTED IN REPOSITIONED IN BED, VS STABLE, PT TALKATIVE, PLEASANT, DRINKING WATER WELL.
--- NOTE | 2023-04-17 06:25 | NUR ---
call light answered x3 in the last 10 minutes for various needs including ordering breakfast, prn nasuea medication. no additional needs or concerns verbalized, call light in reach. iv site remains wnl.
--- NOTE | 2023-04-17 07:35 | NUR ---
PT RESTING EYES CLOSED AT TIME OF SHIFT REPORT, LEFT UNDISTURBED. AWAKE NOW UP TO BSC THEN TO THE RECLINER. FRESH H20 AND NEEDED ITEMS AT BEDSIDE WITH CALL LIGHT.
--- NOTE | 2023-04-17 08:59 | NUR ---
PT WAS LAYING IN BED WAKING UP FOR THE DAY. PT WAS GIVEN A WARM WASH CLOTH TO WIPE OFF HER FACE. PT WAS ASSISTED TO BEDSIDE COMMODE, OUTPUT MESURED. PT WAS TRANSITIONED TO HER CHAIR TO EAT BREAKFAST. BED LINENS WERE CHANGED. PT STATES NO FURTHER COMPLAINTS. CALL LIGHT WITHIN REACH
--- NOTE | 2023-04-17 09:10 | NUR ---
PT UP IN THE CHAIR WITH MORNING MEAL CALL LIGHT AND NEEDED ITEMS IN REACH, DENIES NEED OF ANYTHING
--- NOTE | 2023-04-17 10:31 | NUR ---
ASSISTED PT TO THE BEDSIDE COMMODE. PT URINATED, OUTPUT WAS RECORDED ON PT BATHROOM DOOR. NO OTHER COMPLAINTS. PT REQUESTED A BED BATH TODAY AND A SHOWER SHAMPOO CAP WITH HER HAIR COMBED. CALL LIGHT WITHIN REACH
--- NOTE | 2023-04-17 11:11 | NUR ---
PT RESTING IN BED AGREES SHE IS COMFORTABLE. 94% ON RA. MEDICATED WITH TORDOL ANTICIPATE THERAPY SOON
--- NOTE | 2023-04-17 12:50 | NUR ---
PT CALLS REQUESTING 02 BE REPLACED THOUGH SATS ARE 97% ON RA. SHE STATES IT'S MORE COMFORTABLE. 02 REPLACED. PT CONTINUES IN BED ANTICIPATES P/T AFTER NOON HOUR. 95% OF NOON MEAL TOLERATED DENIES NEED OF ANYTHING ELSE
--- NOTE | 2023-04-17 13:52 | NUR ---
PT RESTING EYES CLOSED AFTER COMPLETING P/T. STATES SHE HURTS PRETTY GOOD RIGHT NOW.
--- NOTE | 2023-04-17 14:31 | NUR ---
PT LAYING DOWN IN BED. PT ORTHOPEDICALLY IMPAIRED TEACHER IS IN THE ROOM. TRAFFIC OR SYSTEM DISPATCHER CHARTED VITALS AND I&OS. TRAFFIC OR SYSTEM DISPATCHER CLEARED OUT LUNCH TRAY. PT REQUESTED A DIET EDITH, IT WAS GIVEN TO HER. PT WAS COMFORTABLE AND CALL LIGHT WITHIN REACH
--- NOTE | 2023-04-17 15:46 | NUR ---
CAPSULE FILLING MACHINE OPERATOR ASSISTED PT WITH A BED BATH. CAPSULE FILLING MACHINE OPERATOR HELPED PT WASH HER BACK AND BOTTOM. PT WASHED HER [place] AREA AND THE REST OF HERSELF. PT USED A [place] CAP AND CAPSULE FILLING MACHINE OPERATOR ASSISTED IN COMBING HER HAIR. PT WAS GIVEN A CLEAN GOWN AND CLEAN SOCKS. PT STATED SHE WAS COMFORTABLE AND HER CALL LIGHT IS WITHIN REACH
--- NOTE | 2023-04-17 17:03 | NUR ---
TRAP SETTER ENTERED ROOM TO PERFORM A BSC. RN NOTIFIED OF RESULT. PT STATES NO COMPLAINTS. CALL LIGHT WITHIN REACH
--- NOTE | 2023-04-17 17:42 | NUR ---
PT UP TO THE BSC. SHE HAS BEEN APPROPRIATE THIS SHIFT WITH NO DISPLAYS OF ANGER OR DISATISFACTION. SHE HAS CALLED FOR ASSIST EACH TIME AND BEEN UPBEAT AND FRIENDLY FOR THE MOST PART. SHE DID CRY FOR A SHORT TIME THIS SHIFT ABOUT NOT ABLE TO GO HOME OR SOMETHING, BUT IT PASSED QUICKLY, NO FURTHER ISSUES
--- NOTE | 2023-04-17 19:00 | NUR ---
SHIFT REPORT RECEIVED FROM TORRES NOVA,
--- NOTE | 2023-04-17 19:18 | NUR ---
PT AWAKE AND ORIENTENED, VISITING WITH FAMILY, CHEERFUL, TALKING ABOUT DISCHARGE TO SNF FOR REHAB THEN TO HOME, PT VOICES ACCEPTANCE OF THIS. PT WITHOUT REQUESTS AT THIS TIME.
--- NOTE | 2023-04-17 20:37 | NUR ---
PT C/O NAUSEA, REQUESTING MEDICATION, MEDICATED WITH ZOFRAN 4MG IV PER ORDER.
--- NOTE | 2023-04-17 21:00 | NUR ---
PT AWAKE AND ALERT, VS DONE AND STABLE, ACCUCHECK 104, NO SS REQUIRED, PT TALKATIVE ABOUT DISCHARGE TOMORROW AND FEEL READY TO GO TO SNF, KNOWS IT WILL BE THE BEST RIGHT NOW FOR REHAB, UP TO BR TO VOID AND HAVE A BM, BACK TO BED, REPORTS BEING VERY PAINFUL DUE TO HOLDING HER GRANDDAUGTHER ON HER LAP EARILIER, DESIRES PAIN MEDICATION, MEDICATED WITH DILAUDID 0.5MG IV FOR PELVIC AND BACK PAIN /, SL PATENT IN RIGHT FOREARM, ENCOURAGED PT TO ATTEMPT TO REST.
--- NOTE | 2023-04-17 22:45 | NUR ---
PT APPEARS TO SLEEP, CPOX READS 91%, PT ON 1L/NC, RESTING.
--- NOTE | 2023-04-17 23:53 | NUR ---
CALL LIGHT ANSWERED. pt CRYING, RESISTANT TO PO PAIN MEDICATIONS. EDUCATION PROVIDED. pt RATES PAIN 10/10. STATES "IF I TAKE THOSE THEN I CAN'T TAKE THE SHOT FOR SIX HOURS". CONTENT WRITER RELL ALSO IN ROOM TO PROVIDE MEDICATION EDUCATION. PRN NORCO ADMINISTERED. pt CONTINUES TO BE CONCERNED WITH DILAUDID ADMINISTRATION/AVAILABILITY. QUALITY CONTROL INDUSTRIAL ENGINEER IN ROOM ASSISTING pt TO BSC. PRIMARY RN JOSE MANUEL UPDATED.
--- NOTE | 2023-04-18 00:05 | NUR ---
PT VERY UPSET, ANGRY AND TEARFUL, PRESSURED SPEECH, MAD ABOUT EVERYONE KNOWING SHE IS BEING DISCHARGE AND SHE HASN'T BEEN TOLD, UPSET WITH PAIN MEDICATIONS, RAPID SPEECH, ATTEMPTS TO CALM AND REASSURE PT ABOUT DISCHARGE AND PAIN MEDS, NOT CALMING PT, PT YELLING OUT AT TIMES WITH FRUSTRATIONS. SUPPORT GIVEN.
--- NOTE | 2023-04-18 00:30 | NUR ---
PT CRYING TALKING ON PHONE WITH HER FRIEND, VOICING FRUSTRATIONS WITH CARE, FRIEND ATTEMPTING TO CALM PT, RN AT BEDSIDE, MEDICATED PT WITH TORODAL IV PER ORDER, SUPPORT GIVEN. SL INTACT. PT CALMING SOMEWHAT WHILE TALKING TO HER FRIEND, WHEN PT WAS DONE TALKING TO HER FRIEND, SHE APPEARED ANGRY AND STATED "MY FRIEND WON'T EVEN COME INTO SEE ME", SUPPORT GIVEN.
--- NOTE | 2023-04-18 01:05 | NUR ---
PT HEARD CRYING IN BED, RN TO BEDSIDE, PT C/O PAIN 10/21, MEDICATED WITH 0.5MG DILAUDID IV PER ORDER, SUPPORT GIVEN, PT STARTING TO CALM, STILL VERBALIZES FRUSTRATION WITH DISCHARGE AND SOME ASPECTS OF HER CARE, SUPPORT GIVEN.
--- NOTE | 2023-04-18 01:30 | NUR ---
PT APPEARS TO SLEEP, RESP EVEN AND REG, CPOX IN PLACE AND NOTED TO BE 83-85%, FIO2 INCREASED FROM 1L TO 2L/NC, RN REMAINS AT BEDSIDE, SATS RISING SLOWLY TO 85-86%, FIO2 INCREASED TO 3L/NC, SATS SLOWLY RISE TO 90%. PT REPORTED 2 NIGHTS AGO SHE DOES HAVE SLEPT APNEA BUT DECLINES CPAP, STATES SHE ONLY WANTS TO USE OXYGEN. PLAN TO MONITOR. HOB ELEVATED APPROX 25 DEGREES.
[2023-04-18 02:05] VITALS: BP 131/69
--- NOTE | 2023-04-18 02:40 | NUR ---
PT APPEARS TO SLEEP, RESP EVEN AND REG.
--- NOTE | 2023-04-18 03:33 | NUR ---
PT APPEARS TO SLEEP, RESP EVEN AND REG, CPOX AT 96%.
--- NOTE | 2023-04-18 04:15 | NUR ---
PT AWAKE AND TEARFUL, APOLOGIZING FOR YELLING EARILIER AT THE STAFF, PT REQUESTING PAIN MED, MEDICATED WITH DILAUDID 0.5MG IV PER ORDER FOR PAIN 12/21, PT ASSISTED UP TO BSC PER [place]TA SMALL ENGINE MECHANIC, BACK TO BED, ATTEMPTING TO REST.
[2023-04-18 04:20] VITALS: BP 133/87
--- NOTE | 2023-04-18 05:20 | NUR ---
PT ASLEEP, RESP EVEN AND REG, CPOX 95%.
[2023-04-18 06:05] VITALS: BP 120/75
--- NOTE | 2023-04-18 06:05 | NUR ---
PT AWAKE, VS STABLE, AFEBRILE, WITHOUT REQUEST, PUDDING GIVEN.
--- NOTE | 2023-04-18 06:44 | NUR ---
PT AWAKE, REQUESTING PAIN MED, MEDICATED WITH 2 NORCO FOR PAIN /, BREAKFAST ORDERED FOR PT PER HER REQUEST.
--- NOTE | 2023-04-18 07:22 | NUR ---
PT RESTING EYES CLOSED AT TIME OF SHIFT REPORT. AWAKE NOW REPORTS SLEEPING WELL. AGREES SHE IS COMFORTABLE DENIES REQUESTS OF. CALL LIGHT AND NEEDED ITEMS IN REACH.
[2023-04-18] MEDS ORDERED: HYDROCODON-ACE1 EA10 PO (07:35)
--- NOTE | 2023-04-18 07:42 | NUR ---
PT RESTING EYES CLOSED AT TIME OF SHIFT REPORT. PRESENT AT BEDSIDE. CALL LIGHT AND NEEDED ITEMS IN REACH
--- NOTE | 2023-04-18 09:18 | NUR ---
PT TOLERATES 100% OF MORNING MEAL. NO C/O PAIN THIS MORNING. MEDICATED WITH TORDOL IN ADVANCE OF P/T. PT USING HER PHONE AT THIS TIME CALL LIGHT AND NEEDED ITEMS IN REACH
--- NOTE | 2023-04-18 09:38 | NUR ---
PT UP TO BEDSIDE COMMODE WITH FWW AND STAND BY ASSIST. LINENS CHANGED. PT VOIDS 400 CLEAR YELLOW URINE W/O DIFFICULTY. PT BACK TO BED INDEPENDENTLY. CALL LIGHT GIVEN
[2023-04-18 10:21] VITALS: BP 107/61
--- NOTE | 2023-04-18 12:14 | NUR ---
PT TOLERATES 100% OF NOON MEAL SITS RESTING IN BED DOZING. AWAKENS TO VOICE AGREES SHE IS FULL. DENIES NEEDS OF
[2023-04-18] MEDS ORDERED: LYRICA150 MG PO (13:05)
--- NOTE | 2023-04-18 13:47 | NUR ---
PT RESTING SOUNDLY
--- NOTE | 2023-04-18 14:13 | NUR ---
ALL ORDERS, RX, PASRR AND DISCHARGE SUMMARY FAXED TO JIM AT [facility]. CHART PLACED IN ENVELOPE AND AT THR NURSES STATION.
--- NOTE | 2023-04-18 14:20 | NUR ---
PATIENT UP TO COMMODE TO VOID, BACK TO BED WITH PILLOWS UNDER KNEE AND RIGHT BUTTOCK.
[2023-04-18 14:22] VITALS: BP 129/84
--- NOTE | 2023-04-18 14:43 | NUR ---
PT AWAKENS REQUESTS DILAUDID. ADMINISTERED THEN SL DC'D PT TO TRANSFER AT 1530
== END 2023-04-18 15:29 | DRG 536 ==
LOC: ED 18:14 → MS 18:16
PROVIDERS: ADMIT Family Medicine; ATTEND Internal Medicine
DX: S32.82XA Multiple fractures of pelvis without disruption of pelvic ring, initial encounter for closed fracture (principal); M84.471A Pathological fracture, right ankle, initial encounter for fracture; E83.42 Hypomagnesemia; E11.9 Type 2 diabetes mellitus without complications; R51.9 Headache, unspecified; I10 Essential (primary) hypertension; G89.29 Other chronic pain; M79.7 Fibromyalgia; F32.A Depression, unspecified; F43.10 Post-traumatic stress disorder, unspecified; M51.9 Unspecified thoracic, thoracolumbar and lumbosacral intervertebral disc disorder; I25.10 Atherosclerotic heart disease of native coronary artery without angina pectoris; J45.909 Unspecified asthma, uncomplicated; F17.210 Nicotine dependence, cigarettes, uncomplicated; W01.0XXA Fall on same level from slipping, tripping and stumbling without subsequent striking against object, initial encounter; I25.2 Old myocardial infarction; Z87.19 Personal history of other diseases of the digestive system; Z79.84 Long term (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 of oral 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 drugs
CPT/HCPCS: 36415; 72170; 72192; 73610; 80053; 83735; 84100; 85025; 94760; 94762; 97110; 97116; 97162; 97165; 97530; 97535; 99285-25; A9270; J1170; J1815; J1885; J2405; J3475

== ENCOUNTER 2023-06-04 17:19 | Emergency (ER) | payer MEDICARE, OTHER ==
[~2023-06-04] VITALS: Ht 172.7 cm; Wt 82.0 kg
[~2023-06-04 17:19] MED LIST changes: +LISINOPRIL5 MG PO; +PRENATAL FORMU1 EAC2 PO; +TIZANIDINE HCL2 MG PO; +VITAMIN B-650 MG PO; +VITAMIN C500 M4 PO; +VITAMIN D325 MCG PO
[2023-06-04] MEDS ORDERED: ARIPIPRAZOLE10 MG PO (17:38)
[2023-06-04] MEDS ORDERED: CYCLOBENZAPRINE5 MG PO (17:39)
[2023-06-04] MEDS ORDERED: CYCLOBENZAPRINE10 MG PO (17:40)
[2023-06-04] MEDS ORDERED: LAMOTRIGINE100 MG PO (17:40)
[2023-06-04 17:51] LABS: BASOPHILS 0.8 % (0-2); EOSINOPHILS 1.5 % (0-6); HEMATOCRIT 31.6 % (35.0-50.0); HEMOGLOBIN 10.6 g/dL (12.0-18.0); MCH 27.7 (27-36); MCHC 33.5 g/dl (30-36); MCV 82.9 fl (81-99); MONOCYTES 9.5 % (0-12); NEUTROPHILS 57.2 % (39-80); PLATELET COUNT 305 K/uL (140-440); RBC 3.81 M/ul (4.3-5.7); RDW 14.7 (10.5-15.0)
[2023-06-04] MEDS ORDERED: LIDOCAINE 2% VISCOUS 6 ML SYR TOP ONE (18:15)
[2023-06-04 18:19] LABS: ACETAMINOPHEN 0 ug/mL (10-30); ALBUMIN 3.5 g/dL (3.4-5.0); ALBUMIN/GLOBULIN RATIO 0.92 (1.1-2.4); ALCOHOL, MEDICAL <3 ng/dL (<3); ALKALINE PHOSPHATASE 98 U/L (46-116); ALT (SGPT) 16 U/L (14-59); ANION GAP 12.1 (7-21); AST (SGOT) 14 U/L (15-37); BILIRUBIN, TOTAL 0.2 ng/dL (0.2-1.0); BUN/CREATININE RATIO 19.67 (6.0-28.6); CALCIUM 8.8 mg/dL (8.5-10.1); CARBON DIOXIDE 31 mmol/L (21-32); CHLORIDE 92 mmol/L (98-107); CREATININE, SERUM 1.22 mg/dL (0.55-1.02); GLOMERULAR FILTRATION RATE,EST 48 mL/min (>60); POTASSIUM 3.1 mmol/L (3.5-5.1); PROTEIN, TOTAL 7.3 g/dL (6.4-8.2); SALICYLATE 1.7 mg/dL (2.8-20.0); TSH, 3RD GENERATION 0.461 uIU/mL (0.358-3.740); UREA NITROGEN 24 mg/dL (7-18)
[2023-06-04] MEDS ORDERED: KETOROLAC TROMETHAMINE 30 MG/ML VIAL IM ONE (20:00)
[2023-06-04] MEDS ORDERED: KETOROLAC TROMETHAMINE 15 MG/ML VIAL IV ONE (20:00)
[2023-06-04 20:36] LABS: AMPHETAMINES, URINE NEGATIVE (NEGATIVE); BARBITURATES, URINE NEGATIVE (NEGATIVE); BENZODIAZEPINE, URINE NEGATIVE (NEGATIVE); BUPRENORPHINE, URINE NEGATIVE (NEGATIVE); CANNABINOID, URINE POSITIVE (NEGATIVE); COCAINE, URINE NEGATIVE (NEGATIVE); ECSTASY, URINE NEGATIVE (NEGATIVE); FENTANYL, URINE NEGATIVE (NEGATIVE); METHADONE, URINE NEGATIVE (NEGATIVE); OPIATES, URINE NEGATIVE (NEGATIVE); OXYCODONE, URINE NEGATIVE (NEGATIVE); PHENCYCLIDINE, URINE NEGATIVE (NEGATIVE)
[2023-06-04] MEDS ORDERED: ACETAMINOPHEN 325 MG TAB PO PRN (22:00)
[2023-06-05] MEDS ORDERED: HYDROCODONE/ACETA 5/325 TAB PO PRN (07:00)
[2023-06-05] MEDS ORDERED: CELECOXIB 200 MG CAP PO SCH (09:00)
[2023-06-05] MEDS ORDERED: MICONAZOLE NITRATE 1 EA BTL TOP SCH (21:00)
[2023-06-06 08:58] LABS: INFLUENZA B NAA NEGATIVE (NEGATIVE); RESPIRATORY SYNCYTIAL VIR NAA NEGATIVE (NEGATIVE)
[2023-06-06] MEDS ORDERED: ONDANSETRON 4 MG TAB ODT SL ONE (09:15)
[2023-06-06 09:48] LABS: BILIRUBIN, URINE NEGATIVE (negative); BLOOD/HGB, URINE NEGATIVE (Negative); KETONE, URINE NEGATIVE (Negative); LEUK ESTERASE, URINE SMALL (negative); NITRITE, URINE POSITIVE (negative); PH, URINE 6.5 (5-7)
[2023-06-06 09:52] LABS: BACTERIA, URINE 4+ /hpf (negative); CASTS, URINE NONE SEEN \\lpf; CRYSTALS, URINE NONE SEEN (0-1+); EPITHELIAL CELLS, URINE SQUAMOUS 1+ /lpf (0-1+); RED BLOOD CELLS, URINE 0-1 /hpf (0-5); REFLEX CULTURE, URINE Yes (No); WHITE BLOOD CELLS, URINE >50 /HPF (0-5)
[2023-06-06 09:53] LABS: COLLECTION TYPE, URINE CLEAN CATCH
[2023-06-06] MEDS ORDERED: ondansetron HCL 4 MG TAB PO PRN (17:30)
[2023-06-06] MEDS ORDERED: NITROFURANTOIN MONOHYD MACROCR 100 MG CAP PO ONE (17:45)
[2023-06-06] MEDS ORDERED: ONDANSETRON 4 MG TAB ODT SL PRN (17:45)
[2023-06-07 07:36] VITALS: BP 150/99
[2023-06-07] MEDS ORDERED: NITROFURANTOIN MONOHYD MACROCR 100 MG CAP PO SCH (08:00)
== END 2023-06-07 07:36 ==
LOC: ED 17:19
PROVIDERS: Emergency Medicine
DX: T48.1X2A Poisoning by skeletal muscle relaxants [neuromuscular blocking agents], intentional self-harm, initial encounter (principal); S32.591D Other specified fracture of right pubis, subsequent encounter for fracture with routine healing; S32.592D Other specified fracture of left pubis, subsequent encounter for fracture with routine healing; S32.512D Fracture of superior rim of left pubis, subsequent encounter for fracture with routine healing; S32.19XD Other fracture of sacrum, subsequent encounter for fracture with routine healing; W19.XXXD Unspecified fall, subsequent encounter; I10 Essential (primary) hypertension; E11.9 Type 2 diabetes mellitus without complications; M79.7 Fibromyalgia; F32.A Depression, unspecified; F43.10 Post-traumatic stress disorder, unspecified; I25.2 Old myocardial infarction; I25.10 Atherosclerotic heart disease of native coronary artery without angina pectoris; J45.909 Unspecified asthma, uncomplicated; F17.200 Nicotine dependence, unspecified, uncomplicated; Z88.5 Allergy status to narcotic agent; Z88.8 Allergy status to other drugs, medicaments and biological substances; Z79.899 Other long term (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; Z79.84 Long term (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 of oral 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 drugs
CPT/HCPCS: 36415; 51702; 51798; 72131; 72192; 80053; 80307; 81001; 84443; 85025; 87088; 87186; 87502; 99285-25; A9270; G0480; J1885; U0002

== ENCOUNTER 2023-10-25 12:24 | Inpatient (IN) | payer MEDICARE, OTHER ==
[~2023-10-25] VITALS: Ht 172.7 cm; Wt 85.6 kg
[~2023-10-25 12:24] MED LIST changes: +ARIPIPRAZOLE10 MG PO
[2023-10-25 12:57] LABS: BASOPHILS 0.8 % (0-2); EOSINOPHILS 0.1 % (0-6); HEMATOCRIT 35.6 % (35.0-50.0); HEMOGLOBIN 11.6 g/dL (12.0-18.0); LYMPHOCYTES 14.5 % (24-44); MCH 25.7 (27-36); MCHC 32.5 g/dl (30-36); MCV 79.1 fl (81-99); MONOCYTES 5.1 % (0-12); NEUTROPHILS 79.5 % (39-80); PLATELET COUNT 555 K/uL (140-440); RDW 15.6 (10.5-15.0)
[2023-10-25 13:11] LABS: ALBUMIN 3.9 g/dL (3.4-5.0); ALBUMIN/GLOBULIN RATIO 0.87 (1.1-2.4); ANION GAP 17.2 (7-21); BILIRUBIN, TOTAL 0.3 ng/dL (0.2-1.0); BUN/CREATININE RATIO 9.61 (6.0-28.6); CALCIUM 10.1 mg/dL (8.5-10.1); CREATININE, SERUM 1.04 mg/dL (0.55-1.02); POTASSIUM 3.2 mmol/L (3.5-5.1); PROTEIN, TOTAL 8.4 g/dL (6.4-8.2)
[2023-10-25] MEDS ORDERED: SODIUM CHLORIDE 0.9% 1,000 ML IV ONE (13:15)
[2023-10-25] MEDS ORDERED: LORazepam 2 MG/ML VIAL IV ONE (13:15)
[2023-10-25 13:29] LABS: BILIRUBIN, URINE NEGATIVE (negative); BLOOD/HGB, URINE NEGATIVE (Negative); KETONE, URINE SMALL (Negative); LEUK ESTERASE, URINE NEGATIVE (negative); NITRITE, URINE NEGATIVE (negative)
[2023-10-25] MEDS ORDERED: MAGNESIUM SULFATE 2 GM/50 ML BAG IV ONE ×2 (13:30→20:15)
[2023-10-25 13:53] LABS: AMPHETAMINES, URINE NEGATIVE (NEGATIVE); BARBITURATES, URINE NEGATIVE (NEGATIVE); BENZODIAZEPINE, URINE NEGATIVE (NEGATIVE); BUPRENORPHINE, URINE POSITIVE (NEGATIVE); CANNABINOID, URINE POSITIVE (NEGATIVE); COCAINE, URINE NEGATIVE (NEGATIVE); ECSTASY, URINE NEGATIVE (NEGATIVE); FENTANYL, URINE NEGATIVE (NEGATIVE); METHADONE, URINE NEGATIVE (NEGATIVE); OPIATES, URINE NEGATIVE (NEGATIVE); OXYCODONE, URINE NEGATIVE (NEGATIVE); PHENCYCLIDINE, URINE NEGATIVE (NEGATIVE)
[2023-10-25] MEDS ORDERED: ACETAMINOPHEN 500 MG TAB PO ONE (15:15)
[2023-10-25] MEDS ORDERED: LACTATED RINGER'S 1,000 ML IV SCH (15:30)
[2023-10-25] MEDS ORDERED: ondansetron HCL 4 MG/2 ML VIAL IV PRN (15:30)
[2023-10-25] MEDS ORDERED: ACETAMINOPHEN 325 MG TAB PO PRN (15:30)
[2023-10-25] MEDS ORDERED: DEXTROSE 50% 50 ML SYR IV PRN ×2 (15:45)
[2023-10-25] MEDS ORDERED: DEXTROSE 5% 1,000 ML IV PRN (15:45)
[2023-10-25] MEDS ORDERED: IBLOOD GLUCOSE TEST STRIP 1 EA TEST XX PRN (15:45)
[2023-10-25] MEDS ORDERED: GLUCAGON,HUMAN RECOMBINANT 1 MG/ML VIAL SUB-Q PRN (15:45)
--- NOTE | 2023-10-25 15:47 | EKG ---
[facility] [address] [place] [address] Signed Sinus tachycardia Nonspecific ST abnormality Abnormal ECG When compared with ECG of 20-MAR-2023 20:24, Vent. rate has increased BY [address] now depressed in Inferior leads ST now depressed in Anterior leads Confirmed by Epi England MD () on 10/25/2023 3:47:30 PM Electronically Signed By: EPI ENGLAND MD 10/25/23 1547 PATIENT NAME: TIM BROOKS Electrocardiogram DATE OF : 53 PHYSICIAN: EPI ENGLAND MD REPORT #: [id number] REPORT IS CONFIDENTIAL AND NOT TO BE RELEASED WITHOUT AUTHORIZATION
[2023-10-25 16:09] VITALS: BP 132/81
--- NOTE | 2023-10-25 16:27 | NUR ---
PT TO FLOOR VIA STRETCHER WITH AVTAR BURROUGHS. PT SCOOTED OVER TO BED ON DRAWSHEET. PT ABLE TO ANSWER SOME QUESTIONS APPROPRIATELY AND WAS ABLE TO GET UP TO BSC FOR BM WITH 1P ASSIST. PT ROOMMATE FRANCY IN ROOM WHOM CANNOT FOCUS HIS EYES ON THINGS BUT STATES HE IS FINE. VS STABLE. IV FLUSHED WNL.
--- NOTE | 2023-10-25 16:52 | NUR ---
PT RESTING IN BED. ADMISSION AND ASSESSMENT COMPLETE. PT C/O BEING HOT, ROOM TEMP TURNED DOWN AND BLANKETS REMOVED. BED ALARM SET. DENIES ANY NEEDS, CALL LIGHT IN REACH.
[2023-10-25] MEDS ORDERED: CALCITONIN-SAL3.7 ML NAS (16:58)
[2023-10-25] MEDS ORDERED: BUPRENORPHINE1 EAC2 TD (16:59)
[2023-10-25] MEDS ORDERED: INSULIN LISPRO 100 UNIT/ML ML SUB-Q SCH (17:00)
[2023-10-25] MEDS ORDERED: IBLOOD GLUCOSE TEST STRIP 1 EA TEST VI SCH (17:00)
[2023-10-25 17:01] VITALS: BP 132/81
[2023-10-25] MEDS ORDERED: ARIPIPRAZOLE30 MG PO (17:05)
--- NOTE | 2023-10-25 17:44 | NUR ---
PT RESTING IN BED. NEURO CHECK COMPLETE. DISORIENTED TO TIME. PT C/O NECK PAIN, ICE PACK PROVIDED. DENIES ANY NEEDS AT THIS TIME, BED ALARM SET AND CALL LIGHT IN REACH.
--- NOTE | 2023-10-25 17:59 | NUR ---
PT CONTINUES TO BE SLIGHTLY CONFUSED AND RESTLESS , ORIENTED TO SELF AND SURROUNDINGS. CALLS OUT. BED ALARM ON. MRI TMMR. DECLINED DINNER DUE TO "NOT FEELING WELL". HAD BM TODAY, 1 PA TO BSC.
--- NOTE | 2023-10-25 18:20 | NUR ---
PT C/O "NOT FEELING WELL" WHEN ASKED WHERE PT STATED IN THE ABDOMEN. ZOFRAN ADMINISTERED PER EMAR. PT DENIES ANY FURTHER NEEDS. CALL LIGHT WITHIN REACH.
[2023-10-25 18:39] VITALS: BP 169/95
[2023-10-25] MEDS ORDERED: KETOROLAC TROMETHAMINE 15 MG/ML VIAL IV PRN (18:45)
[2023-10-25] MEDS ORDERED: PROCHLORPERAZINE EDISYLATE 10 MG/2 ML VIAL IV PRN (18:45)
--- NOTE | 2023-10-25 18:52 | NUR ---
CALLED DR ENGLAND REGARDING PT REPORTING NECK AND HEAD PAIN, HEART PALPITATIONS AND NAUSEA AFTER ZOFRAN. ORDERED COMPAZINE AND TORADOL. PT RATES PAIN 6/10
--- NOTE | 2023-10-25 19:26 | NUR ---
REPORT RECIEVED FROM DAY SHIFT RN. PATIENT RESTING IN BED ON BACK WITH EYES CLOSED. RESPIRATIONS EVEN AND UNLABORED. CALL LIGHT IN REACH.
[2023-10-25 20:53] VITALS: BP 140/82
--- NOTE | 2023-10-25 21:07 | NUR ---
PATIENT RESTING IN BED TALKING ON CELL PHONE. VS AND I&Os OBTAINED AND RECORDED. BS WNL. SCHEDULED MEDICATION ADMINISTERED. PATIENT A&O x3, NOT ORIENTED TO DATE. BOTH IVs FLUSHED WNL. PATIENT DENIES FURTHER NEEDS. SCDS IN PLACE. NO FURTHER NEEDS. CALL LIGHT IN REACH.
--- NOTE | 2023-10-25 22:48 | NUR ---
PATIENT RESTING IN BED, AWAKE. APPEARS TO BE CONTENT AND COMFORTABLE. THIS RN ASKED PATIENT IF SHE WAS DOING OKAY AND PATIENT STATED "I JUST WANTED TO DABBLE MY FEET, YA KNOW?" THEN PATIENT PROCEDED TO WIGGLE FEET AND TOES. THIS RN EDUCATED PATIENT TO CALL IF SHE NEEDS ANYTHING. BED ALARM ON FOR SAFETY. CALL LIGHT IN REACH.
[2023-10-26] VITALS (10 sets, daily range): BP systolic 148–181; BP diastolic 85–104
--- NOTE | 2023-10-26 00:34 | NUR ---
pt HEARD CALLING OUT. REORIENTED TO CALL LIGHT, pt VERBALIZES UNDERSTANDING. 1PA WITH FWW TO BSC FOR VOID. pt BACK IN BED. VS COMPLETE, STABLE. PRIMARY RN NOW IN ROOM. SCDS ON.
--- NOTE | 2023-10-26 02:06 | NUR ---
PATIENT RESTING IN BED REQUESTING BLANKETS TO BE PULLED UP. THIS RN READJUSTED BLANKETS. PATIENT HAS NO FURTHER NEEDS. BED ALARM ON FOR SAFETY. CALL LIGHT IN REACH.
--- NOTE | 2023-10-26 02:34 | NUR ---
NEW BAG IV FLUID INFUSING PER ORDER. NO FURTHER NEEDS. CALL LIGHT IN REACH.
--- NOTE | 2023-10-26 03:17 | NUR ---
IV PUMP ALARMING, DISTAL OCCLUSION. SITE ASSESSED, INFUSING WNL. SCDS REMOVED PER pt REQUEST. CALL LIGHT IN REACH. pt DENIES TOILETING OR ADDITIONAL NEEDS.
--- NOTE | 2023-10-26 05:47 | NUR ---
PATIENT RESTING IN BED REPORTS NEEDING TO USE BSC. PATIENT UP WTIH 1PA AND FWW TO VOID. PATIENT BACK TO BED. PATIENT REPORTS HEADACHE PAIN. PATIENT UNABLE TO RATE PAIN ON A 1-10 SCALE BUT STATES "IT IS PRETTY BAD". PRN PAIN MEDICATION ADMINISTERED. PATIENT A&O x3, NOT TO DATE. BED ALARM ON FOR SAFETY. PATIENT HAS NO FURTHER NEEDS. CALL LIGHT IN REACH. PATIENT REFUSING SCDs.
[2023-10-26 05:58] LABS: BASOPHILS 0.8 % (0-2); EOSINOPHILS 2.1 % (0-6); HEMATOCRIT 31.6 % (35.0-50.0); HEMOGLOBIN 10.5 g/dL (12.0-18.0); LYMPHOCYTES 31.6 % (24-44); MCHC 33.2 g/dl (30-36); MCV 78.5 fl (81-99); MONOCYTES 8.9 % (0-12); NEUTROPHILS 56.6 % (39-80); PLATELET COUNT 442 K/uL (140-440); RBC 4.02 M/ul (4.3-5.7); RDW 15.5 (10.5-15.0)
[2023-10-26 06:13] LABS: ALBUMIN 3.2 g/dL (3.4-5.0); ALBUMIN/GLOBULIN RATIO 0.78 (1.1-2.4); ANION GAP 8.9 (7-21); BILIRUBIN, TOTAL 0.4 ng/dL (0.2-1.0); CALCIUM 9.7 mg/dL (8.5-10.1); CHOLESTEROL/HDL RATIO 3.5; CREATININE, SERUM 0.8 mg/dL (0.55-1.02); MAGNESIUM 1.7 mg/dL (1.8-2.4); PHOSPHORUS, INORGANIC 3.3 mg/dL (2.5-4.9); POTASSIUM 2.9 mmol/L (3.5-5.1); PROTEIN, TOTAL 7.3 g/dL (6.4-8.2)
--- NOTE | 2023-10-26 07:25 | NUR ---
UR CLINICAL REVIEW: 2MJacy SANTOS, MEETS INPT MEDICARE INPT 10/25/23 @ 1534 ORDER MATCHES STATUS NO AUTH REQUIRED PER MEDICARE RULES.
--- NOTE | 2023-10-26 07:25 | NUR ---
RECEIVED REPORT FROM AVTAR SCANLON. PT BUPINORPHINE PATCH PLACEMENT CONFIRMED WITH HIGHWAY TRUCK DRIVER RN AND THIS RN. MD NOTIFIED, MD STATES TO REMOVE PATCH, PATCH REMOVED. PT STATES SHE NEEDS TO HAVE A BM. PT UP TO BSC WITH FWW AND SBA, PT HAS BM, PT BACK TO BED. BED ALARM ON FOR SAFETY. CALL LIGHT WITHIN REACH.
--- NOTE | 2023-10-26 07:42 | NUR ---
TOOK PT BLOOD SUGAR AND AND CHARTED IT AND NURSE IS NOTIFIED. UPDATED BOARD AND PT DIDNT NEED ANYTHING ELSE FROM ME AND CALL LIGHT IS WITHIN REACH.
[2023-10-26] MEDS ORDERED: POTASSIUM CHLORIDE 40 MEQ,LIDOCAINE HCL 1% 40 MG in DEXTROSE 5% 250 ML IV ONE (08:00)
[2023-10-26] MEDS ORDERED: MAGNESIUM SULFATE 2 GM/50 ML BAG IV ONE (08:00)
[2023-10-26] MEDS ORDERED: SIMETHICONE 125 MG TABLET CHEWABLE PO PRN (08:30)
[2023-10-26] MEDS ORDERED: IBUPROFEN 600 MG TAB PO PRN (08:45)
--- NOTE | 2023-10-26 09:40 | NUR ---
PT LYING IN BED AWAKE. PT STATES HEADACHE PAIN IS 6/10, MOTRIN GIVEN PER PT REQUEST. SIMETHICONE GIVEN PER PT REQUEST D/T ABDOMINAL DISCOMFORT. PT CONTINUES TO BE FORGETFUL AND DISORIENTED TO DATE WELL EVENT. PT CONTINUES TO HAVE EXPRESSIVE APHASIA. TELE REMAINS IN PLACE. CHERRY PITTER TAKES VITAL SIGNS, REPORTS TO THIS RN BLOOD PRESSURE OF 172/89, THIS RN NOTIFIES MD. MD STATES NO NEW ORDERS AT THIS TIME. PT FRIEND AT THE BEDSIDE. PT STATES NO FURTHER NEEDS AT THIS TIME, CALL LIGHT WITHIN REACH.
--- NOTE | 2023-10-26 09:41 | NUR ---
VISITED DURING SPIRITUAL CARE ROUNDS. PT EXHIBITING SIGNS OF ANXIETY, CONFIRMED FRUSTRATION. COMB WINDER PROVIDED SUPPORTIVE PRESENCE, HOSPITALITY, PRAYER. PT EXPRESSED GRATITUDE, HOPE.
[2023-10-26] MEDS ORDERED: LAMOTRIGINE200 MG PO (09:46)
[2023-10-26] MEDS ORDERED: LOW DOSE ASPIRI81 MG PO (09:52)
--- NOTE | 2023-10-26 10:06 | NUR ---
PATIENT ALERT, SITTING UP IN BED. SIGNIFICANT OTHER IN ROOM AT THIS TIME WELL. BOTH ACTIVE IN ANSWERING QUESTIONS. PATIENT LIVES IN SINGLE LEVEL HOME WITH SIGNIFICANT OTHER, RAMP TO ENTER HOME AND NO STAIRS. STATES SHE HAS A WALKER, WHEELCHAIR AND NEBULIZER. PREVIOUS PELVIC FRACTURE, SIGNIFICANT OTHER STATES PATIENT IS ACTIVE AT HOME, NO CURRENT PT OR OT. PATIENT STATES SHE STILL DRIVES, SIGNIFICANT OTHER DRIVES WELL. PATIENT HAS SOME ISSUES FINANCIALLY, BUT DOES RECEIVE FOOD STAMPS. DENIES CURRENT NEEDS AT THIS TIME. STATES SHE WILL NOTIFY STAFF IF SHE THINKS OF ANY NEEDS.
--- NOTE | 2023-10-26 10:10 | NUR ---
PT USES CALL LIGHT, THIS RN TO BEDSIDE. PT STATES SHE NEEDS TO USE BSC. PT UP TO BSC WITH FWW AND SBA. PT VOIDS, BACK TO BED. PT FRIEND AT THE BEDSIDE. CALL LIGHT WITHIN REACH, PT STATES NO FURTHER NEEDS AT THIS TIME.
--- NOTE | 2023-10-26 11:45 | NUR ---
PT UP TO BSC, BACK TO BED, BED ALARM ON FOR SAFETY, CALL LIGHT WITHIN REACH.
[2023-10-26] MEDS ORDERED: PHARMACY RENAL DOSE ADJUSTMENT 1 DOSE MISC PO SCH (12:00)
--- NOTE | 2023-10-26 12:50 | NUR ---
PT A+O TO SELF AND PLACE, DISORIENTED TO TIME AND EVENT. PT REORIENTED. PT STATES SHE IS FEELING "VERY NERVOUS" ABOUT GETTING AN MRI DONE. PT EDUCATION ON WHAT TO EXPECT WITH MRI, PT VERBALIZES UNDERSTANDING. THIS RN SITS WITH PT UNTIL IMAGING STAFF COMES TO ROOM, PT UP TO WHEELCHAIR WITH 1PA, TELE REMOVED AND IVs SALINE LOCKED. PT OFF FLOOR TO MRI.
--- NOTE | 2023-10-26 13:15 | NUR ---
PT BACK TO ROOM AFTER MRI, TELE IN PLACE, IVF RECONNECTED AND STARTED. PT APPEARS VERY ANXIOUS, STATES THAT "IT WAS VERY SCARY" REGARDING THE MRI. THIS RN SITS AT BEDSIDE, DISCUSSES EXPERIENCE WITH PT. PT STATES SHE WOULD LIKE TO TRY TO REST AT THIS TIME. CALL LIGHT WITHIN REACH, BED ALARM ON FOR SAFETY.
--- NOTE | 2023-10-26 14:27 | NUR ---
PT STATES SHE IS FEELING MILDLY NAUSEAS AT THIS TIME, REQUESTS PRN ZOFRAN, GIVEN. PT STATES NO FURTHER NEEDS AT THIS TIME, CALL LIGHT WITHIN REACH. BED ALARM ON FOR SAFETY.
--- NOTE | 2023-10-26 15:26 | NUR ---
PT STATES SHE CONTINUES TO FEEL MILDLY NAUSEAS, COOL WASHCLOTH PROVIDED FOR HEAD. BLINDS CLOSED PER PT REQUEST. PT STATES NO FURTHER NEEDS AT THIS TIME, CALL LIGHT WITHIN REACH.
--- NOTE | 2023-10-26 15:54 | NUR ---
DR. ENGLAND TO BEDSIDE TO UPDATE PT ON POC. PT REQUESTS FRUIT ON DINNER TRAY, KITCHEN CALLED AND NOTIFIED. PT STATES NO FURTHER NEEDS AT THIS TIME, CALL LIGHT WITHIN REACH, BED ALARM ON FOR SAFETY.
--- NOTE | 2023-10-26 16:45 | NUR ---
PT RESTING IN BED WITH EYES CLOSED, BREATHING EVEN AND UNLABORED. CALL LIGHT WITHIN REACH, BED ALARM ON FOR SAFETY.
--- NOTE | 2023-10-26 17:31 | NUR ---
PT C/O STOMACH DISCOMFORT, PRN SIMETHICONE GIVEN. PT A+O TO SELF, MONTH, DAY OF THE WEEK, PLACE, AND EVENT. PT DISORIENTED TO YEAR. PT STATES NO NEEDS AT THIS TIME, CALL LIGHT WITHIN REACH.
--- NOTE | 2023-10-26 18:26 | NUR ---
PT STATES STOMACH DISCOMFORT/PAIN HAS NOT RESOLVED SINCE TAKING SIMETHICONE DOSE. THIS RN CALLS DR. ENGLAND REGARDING BP OF 181/104 (124) WELL PT'S STOMACH PAIN. MD STATES HE WILL PLACE NEW ORDERS. PT STATES NO FURTHER NEEDS AT THIS TIME, PT UP TO BSC WITH AUDIT REVIEWER. CALL LIGHT WITHIN REACH.
[2023-10-26] MEDS ORDERED: hydrALAZINE HCL 20 MG/ML VIAL IV PRN (18:30)
[2023-10-26] MEDS ORDERED: LIDOCAINE & ANTACID 35 ML BTL PO ONE (18:30)
[2023-10-26] MEDS ORDERED: PANTOPRAZOLE SODIUM 40 MG TABEC PO ONE (18:30)
--- NOTE | 2023-10-26 19:56 | NUR ---
REPORT RECEIVED FROM AVTAR BLOOM. pt RESTING IN BED WITH EYES CLOSED. BREATHING UNLABORED. HR 77 ON TELE 8. BED ALARM ON.
--- NOTE | 2023-10-26 20:48 | NUR ---
HOME HEALTH CLINICAL SUPERVISOR OBTAINED VITALS. PT NEEDED TO USE BATHROOM. HOME HEALTH CLINICAL SUPERVISOR 1PA PT TO BSC. OUTPUT MEASURED AND DOCUMENTED. PT ASSISTED BACK TO BED. PT STATING THAT "MY TUMMY HURTS". RN NOTIFIED. PT STATES NO FURTHER NEEDS AT THIS TIME. CALL LIGHT WITHIN REACH.
--- NOTE | 2023-10-26 21:36 | NUR ---
pt BACK IN BED AFTER VOID. ASSESSMENT COMPLETE, NEURO CHECK COMPLETE. pt ORIENTED TO ALL EXCEPT EXACT DATE. SLOW TO RESPOND AT TIMES. COMPLAINS OF ABDOMINAL PAIN. PRN PAIN AND NAUSEA MEDICAITON ADMINISTERED. BOWEL TONES ACTIVE, pt PASSING GAS, ABD SOFT. BED ALARM ON. IVF INFUSING WNL. CALL LIGHT IN REACH.
[2023-10-27] VITALS (10 sets, daily range): BP systolic 145–182; BP diastolic 93–108
--- NOTE | 2023-10-27 00:04 | NUR ---
CHECKED ON pt, RESTING IN BED WITH EYES CLOSED ON LEFT SIDE. BREATHING UNLABORED, HR 75 ON TELE 8. BED ALARM ON.
--- NOTE | 2023-10-27 01:23 | NUR ---
HEAT SET OPERATOR OBTAINED VITALS AND I&O. PT STATES NO FURTHER NEEDS AT THIS TIME. CALL LIGHT WITHIN REACH.
--- NOTE | 2023-10-27 02:10 | NUR ---
BED ALARM SOUNDING, pt SITTING AT SIDE OF BED. 1PA WITH FWW TO [facility] FOR VOID. pt COMPLAINS OF FEELING DIZZY UPON STANDING. GAIT STEADY WITH FWW. NEW ATTENDS PLACED. pt BACK IN BED AFTER VOID. NEURO CHECK COMPLETE. BED ALARM ON.
--- NOTE | 2023-10-27 05:25 | NUR ---
LAB TECHS OUT OF pt ROOM. SBA WITH FWW TO BSC FOR VOID AND BACK TO BED. VS COMPLETE. NEURO CHECK COMPLETE. pt HAS CALL LIGHT AND PERSONAL SUPPLIES IN REACH. BED ALARM ON.
--- NOTE | 2023-10-27 05:36 | NUR ---
EMERGENCY ROOM PHYSICIAN ASSISTANT OBTAINED VITALS AND I&O. PT STATED THAT SHE NEEDED TO USE THE BSC. EMERGENCY ROOM PHYSICIAN ASSISTANT 1PA TO BSC. PT THEN VOIDED AND WAS ASSISTED BACK TO BED. PT THEN STATED THAT HER STOMACH HURT. RN NOTIFIED. PT STATES NO FURTHER NEEDS AT THIS TIME. CALL LIGHT WITHIN REACH.
[2023-10-27 05:44] LABS: BASOPHILS 1.2 % (0-2); EOSINOPHILS 0.9 % (0-6); LYMPHOCYTES 25.7 % (24-44); MCH 25.8 (27-36); MCHC 32.4 g/dl (30-36); MCV 79.6 fl (81-99); MONOCYTES 8.6 % (0-12); NEUTROPHILS 63.6 % (39-80); PLATELET COUNT 470 K/uL (140-440); RBC 4.27 M/ul (4.3-5.7); RDW 15.6 (10.5-15.0)
[2023-10-27 06:11] LABS: ALBUMIN 3.3 g/dL (3.4-5.0); ALBUMIN/GLOBULIN RATIO 0.85 (1.1-2.4); ANION GAP 9.3 (7-21); BILIRUBIN, TOTAL 0.4 ng/dL (0.2-1.0); BUN/CREATININE RATIO 5.19 (6.0-28.6); CALCIUM 10.2 mg/dL (8.5-10.1); CREATININE, SERUM 0.77 mg/dL (0.55-1.02); MAGNESIUM 1.5 mg/dL (1.8-2.4); POTASSIUM 3.3 mmol/L (3.5-5.1); PROTEIN, TOTAL 7.2 g/dL (6.4-8.2)
--- NOTE | 2023-10-27 06:58 | NUR ---
PT YELLING OUT FROM ROOM. MANAGER DESKTOP ENTERED ROOM AND PT STATED SHE NEEDED TO HAVE A BM. MANAGER DESKTOP ASSISTED PT TO BSC. PT HAD SMALL LIQUID BM. PT ASSISTED BACK INTO BED AND BSC EMPTIED. PT STATES THAT HER STOMACH HURTS. RN NOTIFED. PT STATES NO FURTHER NEEDS AT THIS TIME. CALL LIGHT WITHIN REACH.
--- NOTE | 2023-10-27 07:10 | NUR ---
RECEIVED REPORT FROM AVTAR BELTRAN. PT RESTING IN BED WITH EYES CLOSED. CALL LIGHT WITHIN REACH.
[2023-10-27] MEDS ORDERED: POTASSIUM CHLORIDE 40 MEQ,LIDOCAINE HCL 1% 40 MG in DEXTROSE 5% 250 ML IV ONE (08:30)
[2023-10-27] MEDS ORDERED: MAGNESIUM SULFATE 2 GM/50 ML BAG IV SCH (08:30)
--- NOTE | 2023-10-27 08:45 | NUR ---
PT LYING AWAKE IN BED, STATES HER STOMACH IS PAINFUL, SIMETHICONE GIVEN PER PT REQUEST, ACTIVE BOWEL TONES, PT DENIES NAUSEA. PT DISORIENTED TO DATE, BUT ORIENTED TO SELF, EVENT AND PLACE. PT STATES NO FURTHER NEEDS AT THIS TIME, CALL LIGHT WITHIN REACH.
--- NOTE | 2023-10-27 09:20 | NUR ---
REFERRED BY NURSING STAFF WHO STATED PT WAS FEELING ANXIOUS. IN CONVERSATION, PT STATED SCARED BECAUSE PROGNOSIS AND DIAGNOSIS ARE UNCERTAIN. COUNTY AGENT PROVIDED ANXIETY CONTAINMENT, SUPPORTIVE PRESENCE, HOSPITALITY, PRAYER. PT EXPRESSED REDUCED ANXIETY, GRATITUDE, HOPE.
[2023-10-27] MEDS ORDERED: ASPIRIN 81 MG TABEC PO SCH (09:40)
--- NOTE | 2023-10-27 09:45 | NUR ---
Spoke with Luz Maria. She denies needs for dc. Plans on going home with roommate. Pt currently using [facility]. Has an appointment tomorrow, but does not feel she will be able to tolerate trip. She will call and cancel her appt and her [employer] transportation.
--- NOTE | 2023-10-27 09:50 | NUR ---
PT UP TO BSC WITH FWW AND 1PA. PT STATES HE STOMACH IS VERY PAINFUL AND THAT SHE FEELS SOB. PT BECOMES SHAKY, STATES SHE IS SUDDENLY COLD. PT STANDS, THIS RN CLEANS [place] AREA, PT HAD A SMALL LIQUID BM. PT BACK TO BED WITH FWW AND 1PA. PT TACHYCARDIC PER TELE DURING THIS TIME. BOAT MECHANIC NOTIFIED, THIS RN STAYS WITH PT. PT BLOOD PRESSURE MEETS PARAMETERS FOR HYDRALAZINE, GIVEN. PT STATES SHE "I FEEL SCARED", THIS RN STAYS AT BEDSIDE, COOL CLOTH PROVIDED FOR PT SHE STATES SHE IS BEGINNING TO FEEL HOT, FAN TURNED ON TOWARD PT. THIS RN TALKS WITH PT ABOUT ANXIETY AT THIS TIME, PT STATES SHE WOULD LIKE TO REST. PT STATES NO FURTHER NEEDS AT THIS TIME, CALL LIGHT WITHIN REACH.
[2023-10-27] MEDS ORDERED: DULOXETINE HCL 30 MG CAP PO SCH (10:02)
--- NOTE | 2023-10-27 10:13 | NUR ---
PT STATES SHE CONTINUES TO EXPERIENCE STOMACH PAIN AND RATES IT 7/10, PRN TYLENOL GIVEN PER PT REQUEST. BLOOD PRESSURE TAKEN TO ASSESS AFTER TAKING HYDRALAZINE 10MG IV DOSE, BP IS 173/95 (113). PT REQUESTS NEW GOWN, GIVEN. PT STATES "I'M NERVOUS" STATES SHE IS NOT SURE WHY SHE FEELS NERVOUS. PT TAKES PO MEDICATIONS W/O DIFFICULTY. PT REQUESTS MORE ICE WATER, GIVEN. PT STATES NO FURTHER NEEDS AT THIS TIME. THIS RN AND PT AGREE ON PLAN FOR PT TO REST SHE STATES SHE FEELS VERY ANXIOUS AT THIS TIME. COOL CLOTH PLACED ON PT'S FOREHEAD PER PT REQUEST, LIGHTS TURNED DOWN IN ROOM TO REDUCE STIMULI. CALL LIGHT WITHIN REACH.
--- NOTE | 2023-10-27 10:35 | NUR ---
DID PATIENT'S BLOOD SUGAR CHECK. PATIENT DIDN'T WANT TO SIT UP IN HER CHAIR THIS MORNING. SHE WANTED TO STAY IN BED. PATIENT DIDN'T ANY OF HER BREAKFAST BUT SHE DID DRINK HER MILK.
--- NOTE | 2023-10-27 11:30 | NUR ---
PHYSICAL THERAPY WORKING WITH PT.
--- NOTE | 2023-10-27 13:20 | NUR ---
PT AWAKENS TO THIS RN IN ROOM. PT A+O X4 AT THIS TIME. PT UP TO RESTROOM TO VOID VIA 1PA AND FWW, BACK TO BED. PT ASKS THIS RN TO ASSIST WITH CALLING FRANCY, THIS RN ASSISTS PT WITH CALLING. PT STATES SHE IS HAVING A HEADACHE, PRN MOTRIN GIVEN PER PT REQUEST. PT STATES NO FURTHER NEEDS AT THIS TIME, CALL LIGHT WITHIN REACH.
--- NOTE | 2023-10-27 13:23 | NUR ---
REFERRED BY NURSING STAFF WHO STATED PT WAS FEELING ANXIOUS. IN CONVERSATION, PT STATED SCARED BECAUSE PROGNOSIS AND DIAGNOSIS ARE UNCERTAIN. HOSPITALITY SERVICES MANAGER PROVIDED ANXIETY CONTAINMENT, SUPPORTIVE PRESENCE, HOSPITALITY, PRAYER. PT EXPRESSED REDUCED ANXIETY, GRATITUDE, HOPE.
[2023-10-27] MEDS ORDERED: METOPROLOL TARTRATE 25 MG TAB PO SCH (13:32)
[2023-10-27] MEDS ORDERED: PANTOPRAZOLE SODIUM 40 MG TABEC PO SCH (13:38)
[2023-10-27] MEDS ORDERED: FAMOTIDINE 20 MG TAB PO SCH (13:38)
--- NOTE | 2023-10-27 16:48 | NUR ---
PT STATES SHE DOES NOT FEEL LIKE SHE WILL BE ABLE TO EAT THE [place]STA SERVED FOR DINNER, REQUESTS SANDWICH BOX, GIVEN. PT STATES NO FURTHER NEEDS AT THIS TIME, CALL LIGHT WITHIN REACH.
--- NOTE | 2023-10-27 17:10 | NUR ---
PT LYING IN BED AWAKE, STATES "I FEEL KIND OF FUNNY", THIS RN ASKS PT TO ELABORATE. PT STATES SHE FEELS SLIGHTLY LIGHT HEADED AT THIS TIME AND THAT HER TOES FEEL NUMB. PT STATES SHE FEELS VERY STRESSED D/T HER BLOOD PRESSURE BEING HIGH JUST NOW. PT EDUCATION ON STARTING BLOOD PRESSURE MANAGEMENT MEDICATIONS, PT VERBALIZES UNDERSTANDING, DENIES PAIN OR SOB. CITY ENGINEER NOTIFIED AND IS AT BEDSIDE. PT STATES NO NEEDS CURRENTLY. HOB LOWERED D/T PT FEELING LIGHT HEADED, O2 SATURATION WNL. PT ALLOWED TO REST AT THIS TIME. CALL LIGHT WITHIN REACH.
--- NOTE | 2023-10-27 18:33 | NUR ---
PATIENT IN BED AT THIS TIME. CALL LIGHT WITHIN REACH, NO FURTHER NEEDS AT THIS TIME.
--- NOTE | 2023-10-27 19:09 | NUR ---
shift report received from dayshift favian colmenares at bedside. bed alarm on and call light inr each. iv site wnl, fluids infusing as directed wnl. board updated, on ra, rr even and unlabored. seasonal warehouse associate to room to assist pt to bathroom.
[2023-10-27] MEDS ORDERED: ARIPiprazole 10 MG TAB PO SCH (19:45)
--- NOTE | 2023-10-27 20:46 | NUR ---
WELL SERVICING RIG OPERATOR OBTAINED VITALS AND I&O. BLOOD SUGAR CHECKED. PT STATES NO FURTHER NEEDS AT THIS TIME. CALL LIGHT WITHIN REACH.
[2023-10-27] MEDS ORDERED: lamoTRIgine 100 MG TAB PO SCH (21:00)
[2023-10-27] MEDS ORDERED: PROPRANOLOL HCL 20 MG TAB PO SCH (21:00)
--- NOTE | 2023-10-27 21:19 | NUR ---
ASSESSMENT COMPLETE, pt A/OX4. BED ALARM ON FOR SAFETY AND CALL LIGHT IN REACH. BRISK BLOOD RETURN NOTED, IV FLUIDS INFUSING DIRECTED WNL. EXPRESSIVE APHASIA CONTIUES TO IMPROVE, VERY MINIMALY NOTED. [facility] ALSO DONE-SEE CHARTING. TELE REMAISN IN PLACE, VSS. SCHEDULED MEDS GIVEN ALONG WITH PRN MOTRIN FOR PAIN R/T HEADACHE.
--- NOTE | 2023-10-27 21:19 | NUR ---
ASSESSMENT COMPLETE, pt A/OX4. BED ALARM ON FOR SAFETY AND CALL LIGHT IN REACH. BRISK BLOOD RETURN NOTED, IV FLUIDS INFUSING DIRECTED WNL. NO EXPRESSIVE APHASIA NOTED, pt IS SLOW TO RESPOND AT TIMES. [facility] ALSO DONE-SEE CHARTING. TELE REMAISN IN PLACE, VSS. SCHEDULED MEDS GIVEN ALONG WITH PRN MOTRIN FOR PAIN R/T HEADACHE.
--- NOTE | 2023-10-27 23:00 | NUR ---
ROUNDED ON pt, pt AWOKE EASILY TO VOICE. DENIES NEEDS OR CONCERNS. CALL LIGHT IN REACH AND BED ALARM ON FOR SAFETY. CALL LIGHT IN REACH. IV SITE WNL.
[2023-10-28 01:02] VITALS: BP 156/83
--- NOTE | 2023-10-28 01:04 | NUR ---
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 PT STATES SHE HAS A HEADACHE. RN NOTIFED. PT STATES NO FURTHER NEEDS AT THIS TIME. CALL LIGHT WITHIN REACH.
--- NOTE | 2023-10-28 01:18 | NUR ---
FOCUSED ASSESSMENT COMPLETE, NO CHANGES NOTED. IV SITE WNL, FLUIDS INFUSING WNL. pt UP SBA TO BSC AND VOIDED 300MLS AND BACK TO BED. ALARM RESUMED. FRESH ICE WATER PROVIDED. PRN TYLENOL GIVEN FOR REPORTED 8/10 H/A PAIN. PRN SIMETHICONE ALSO GIVEN. CALL LIGHT IN REACH.
--- NOTE | 2023-10-28 03:40 | NUR ---
ROUNDED ON pt, pt RESTING QUIETLY IN BED. EYES CLOSED, ON RA. RR EVEN AND UNLABORED. BED ALARM ON AND CALL LIGHT IN REACH.
[2023-10-28 04:27] VITALS: BP 157/90
--- NOTE | 2023-10-28 04:29 | NUR ---
PT CALLED, SBA TO BSC. INDEPENDENT IN CLEANING SELF, TRANSER BACK TO BED. C/O NAUSEA, PRIMARY RN AWARE; VS I/O COMPLETED AT THIS TIME. BED ALARM PLACED.
--- NOTE | 2023-10-28 04:35 | NUR ---
PRN ZOFRAN GIVEN-SEE EMAR. IV SITE WNL. NO FURTHER NEEDS OR CONCERNS VERBALIZED, CALL LIGHT IN REACH. BED ALARM ON.
[2023-10-28 06:11] LABS: BASOPHILS 0.3 % (0-2); EOSINOPHILS 1.9 % (0-6); HEMATOCRIT 29.4 % (35.0-50.0); HEMOGLOBIN 9.4 g/dL (12.0-18.0); LYMPHOCYTES 27.7 % (24-44); MCH 25.3 (27-36); MCHC 32.1 g/dl (30-36); MCV 78.9 fl (81-99); NEUTROPHILS 63.1 % (39-80); PLATELET COUNT 410 K/uL (140-440); RBC 3.73 M/ul (4.3-5.7); RDW 15.8 (10.5-15.0)
[2023-10-28 06:24] LABS: ALBUMIN 2.9 g/dL (3.4-5.0); ALBUMIN/GLOBULIN RATIO 0.85 (1.1-2.4); ANION GAP 8.7 (7-21); BILIRUBIN, TOTAL 0.4 ng/dL (0.2-1.0); BUN/CREATININE RATIO 7.79 (6.0-28.6); CALCIUM 9.8 mg/dL (8.5-10.1); CREATININE, SERUM 0.77 mg/dL (0.55-1.02); MAGNESIUM 1.4 mg/dL (1.8-2.4); POTASSIUM 3.7 mmol/L (3.5-5.1); PROTEIN, TOTAL 6.3 g/dL (6.4-8.2)
[2023-10-28] MEDS ORDERED: MAGNESIUM SULFATE 2 GM/50 ML BAG IV SCH (08:00)
--- NOTE | 2023-10-28 08:02 | NUR ---
Patient awake, alert and oriented x3. Patient sitting up in chair, no acute distress. Patient reports nausea and stomach upset. Admin simethicone per pt request. Compazine 10mg iV also admin per protocol via pump. Patient denies further needs, call light within reach.
--- NOTE | 2023-10-28 08:13 | NUR ---
Magnesium sulfate 4g IV ordered per written protocol from Dr. Bender's order. Mag level of 1.4 this morning.
[2023-10-28] MEDS ORDERED: MAGNESIUM REPLACEMENT PROTOCOL ORAL/IV IV SCH (09:00)
[2023-10-28] MEDS ORDERED: POTASSIUM REPLACEMENT PROTOCOL ORAL/IV PO SCH (09:00)
--- NOTE | 2023-10-28 09:00 | NUR ---
Spoke with Luz Maria. She plans on dc today. She denies any needs. Friend will transport her home.
--- NOTE | 2023-10-28 09:02 | NUR ---
Tylenol 650mg po admin per patient request for headache/abdominal pain.
[2023-10-28 09:15] VITALS: BP 134/70
[2023-10-28 09:16] VITALS: BP 134/70
[2023-10-28] MEDS ORDERED: PROPRANOLOL HCL20 MG PO (09:27)
[2023-10-28] MEDS ORDERED: MAGNESIUM400 M1 PO (09:39)
[2023-10-28] MEDS ORDERED: LIPITOR40 MG PO (09:39)
[2023-10-28 09:45] LABS: HEMOGLOBIN 10.1 g/dL (12.0-18.0)
[2023-10-28 09:48] LABS: BASOPHILS 1.2 % (0-2); EOSINOPHILS 1.3 % (0-6); HEMATOCRIT 31.2 % (35.0-50.0); LYMPHOCYTES 23.2 % (24-44); MCH 25.8 (27-36); MCHC 32.4 g/dl (30-36); MCV 79.7 fl (81-99); MONOCYTES 5.6 % (0-12); NEUTROPHILS 68.7 % (39-80); PLATELET COUNT 427 K/uL (140-440); RBC 3.91 M/ul (4.3-5.7); RDW 15.8 (10.5-15.0)
[2023-10-28] MEDS ORDERED: ONDANSETRON ODT8 MG PO (10:02)
--- NOTE | 2023-10-28 10:55 | NUR ---
THIS MORNING AROUND SHIFT CHANGE PATIENT CALLED AND NEEDED TO USE THE BATHROOM. AFTER SHE WAS DONE WE WALKED OVER TO HER CHAIR. PATIENT USING HER WALKER. PATIENT COMBED HER HAIR WASHED HER FACE AND BRUSHED HER TEETH BEFORE BREAKFAST. CHANGED BED LINENS.
--- NOTE | 2023-10-28 10:57 | NUR ---
PT NOT AVAILABLE FOR VISIT. PROVIDED PRAYER.
== END 2023-10-28 11:30 | disposition home or self-care (01) | DRG 93 ==
LOC: ED 12:24 → MS 15:37
PROVIDERS: Emergency Medicine; Family Medicine; ADMIT Family Medicine; ATTEND Family Medicine
DX: R47.01 Aphasia (principal); E83.42 Hypomagnesemia; F41.9 Anxiety disorder, unspecified; F12.10 Cannabis abuse, uncomplicated; I10 Essential (primary) hypertension; E78.5 Hyperlipidemia, unspecified; R00.0 Tachycardia, unspecified; E87.6 Hypokalemia; E11.9 Type 2 diabetes mellitus without complications; R10.9 Unspecified abdominal pain; I25.10 Atherosclerotic heart disease of native coronary artery without angina pectoris; M79.7 Fibromyalgia; F32.A Depression, unspecified; F43.10 Post-traumatic stress disorder, unspecified; J45.909 Unspecified asthma, uncomplicated; F17.210 Nicotine dependence, cigarettes, uncomplicated; Z98.890 Other specified postprocedural states; Z90.49 Acquired absence of other specified parts of digestive tract; Z98.51 Tubal ligation status; Z90.710 Acquired absence of both cervix and uterus; I25.2 Old myocardial infarction; Z88.8 Allergy status to other drugs, medicaments and biological substances; Z91.148 Patient's other noncompliance with medication regimen for other reason; Z88.5 Allergy status to narcotic agent; Z79.899 Other long term (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; Z79.891 Long term (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 of opiate analgesic; Z79.51 Long term (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 of inhaled steroids
CPT/HCPCS: 36415; 70450; 70551; 71045; 74018; 80053; 80061; 80307; 81003; 83036; 83690; 83735; 84100; 85025; 85610; 85730; 92523; 93005; 93010; 97162; 97166; 97530; A9270; J0360; J0780; J1815; J1885; J2060; J2405; J3475; J3480; J3490; J7030; J7060; J7121

== ENCOUNTER 2024-01-06 15:26 | Emergency (ER) | payer MEDICARE, OTHER ==
[~2024-01-06] VITALS: Ht 172.7 cm; Wt 87.1 kg
[~2024-01-06 15:26] MED LIST changes: +BUPRENORPHINE1 EAC2 TD; +CALCITONIN-SAL3.7 ML NAS; +LIPITOR40 MG PO; +LOW DOSE ASPIRI81 MG PO; +PROPRANOLOL HCL20 MG PO
[2024-01-06] MEDS ORDERED: ACETAMINOPHEN 325 MG TAB PO ONE (18:45)
[2024-01-06 19:13] VITALS: BP 128/76
== END 2024-01-06 19:13 | disposition home or self-care (01) ==
LOC: ED 15:26
DX: M25.511 Pain in right shoulder (principal); I10 Essential (primary) hypertension; I25.2 Old myocardial infarction; I25.10 Atherosclerotic heart disease of native coronary artery without angina pectoris; E11.9 Type 2 diabetes mellitus without complications; J45.909 Unspecified asthma, uncomplicated; K58.9 Irritable bowel syndrome, unspecified; M79.7 Fibromyalgia; F17.200 Nicotine dependence, unspecified, uncomplicated; Z88.5 Allergy status to narcotic agent; Z88.8 Allergy status to other drugs, medicaments and biological substances; Z79.84 Long term (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 of oral 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 drugs; Z79.82 Long term (current) use of aspirin; Z79.899 Other long term (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; X50.0XXA Overexertion from strenuous movement or load, initial encounter
CPT/HCPCS: 73030; 73200; 99284-25; A9270

== ENCOUNTER 2024-06-03 16:58 | Emergency (ER) | payer MEDICARE, OTHER ==
[~2024-06-03] VITALS: Ht 172.7 cm; Wt 88.4 kg
[2024-06-03] MEDS ORDERED: DOXYCYCLINE HYCLATE 100 MG CAP PO ONE (17:15)
[2024-06-03] MEDS ORDERED: ACETAMINOPHEN 500 MG TAB PO ONE (17:15)
[2024-06-03] MEDS ORDERED: ALBUTEROL/IPRATROPIUM 3 ML NEB INH ONE (17:15)
[2024-06-03] MEDS ORDERED: predniSONE 20 MG TAB PO ONE (17:15)
[2024-06-03] MEDS ORDERED: DOXYCYCLINE HY100 MG PO (18:13)
[2024-06-03] MEDS ORDERED: PREDNISONE20 MG PO (18:13)
[2024-06-03] MEDS ORDERED: HYDROCODONE/ACETA 7.5/325 TAB PO ONE (18:15)
[2024-06-03] MEDS ORDERED: HYDROCODONE BIT/ACETAMINOPHEN 5/325 MG 1 TAB HOME.PACK PO ONE (18:15)
[2024-06-03 18:22] VITALS: BP 150/76
== END 2024-06-03 18:22 | disposition home or self-care (01) ==
LOC: ED 16:58
DX: J44.1 Chronic obstructive pulmonary disease with (acute) exacerbation (principal); J18.9 Pneumonia, unspecified organism; I10 Essential (primary) hypertension; E11.9 Type 2 diabetes mellitus without complications; F43.10 Post-traumatic stress disorder, unspecified; I25.2 Old myocardial infarction; F17.200 Nicotine dependence, unspecified, uncomplicated; Z79.82 Long term (current) use of aspirin; Z79.899 Other long term (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; Z79.84 Long term (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 of oral 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 drugs; Z88.5 Allergy status to narcotic agent; Z88.8 Allergy status to other drugs, medicaments and biological substances
CPT/HCPCS: 71045; 94640; 99283-25; A9270; J7512

== ENCOUNTER 2024-07-07 21:52 | Emergency (ER) | payer MEDICARE, OTHER ==
[~2024-07-07] VITALS: Ht 172.7 cm; Wt 92.2 kg
[~2024-07-07 21:52] MED LIST changes: +DOXYCYCLINE HY100 MG PO
[2024-07-07] MEDS ORDERED: GERI-KOT8.6 MG PO (22:04)
[2024-07-07] MEDS ORDERED: LORAZEPAM0.5 MG (22:05)
[2024-07-07 22:06] LABS: EOSINOPHILS 1.4 % (0-6); HEMATOCRIT 32.4 % (35.0-50.0); HEMOGLOBIN 11.1 g/dL (12.0-18.0); LYMPHOCYTES 29.9 % (24-44); MCH 28.7 (27-36); MCHC 34.2 g/dl (30-36); MCV 83.9 fl (81-99); MONOCYTES 8.4 % (0-12); NEUTROPHILS 59.3 % (39-80); PLATELET COUNT 339 K/uL (140-440); RBC 3.86 M/ul (4.3-5.7); RDW 17.1 (10.5-15.0)
[2024-07-07 22:25] LABS: ALBUMIN 3.5 g/dL (3.4-5.0); ALBUMIN/GLOBULIN RATIO 0.92 (1.1-2.4); ANION GAP 10.4 (7-21); BILIRUBIN, TOTAL 0.4 mg/dL (0.2-1.0); BUN/CREATININE RATIO 19.01 (6.0-28.6); CALCIUM 8.8 mg/dL (8.5-10.1); CREATININE, SERUM 1.63 mg/dL (0.55-1.02); MAGNESIUM 1.2 mg/dL (1.8-2.4); POTASSIUM 3.4 mmol/L (3.5-5.1); PROTEIN, TOTAL 7.3 g/dL (6.4-8.2)
[2024-07-07] MEDS ORDERED: KETOROLAC TROMETHAMINE 30 MG/ML VIAL IV ONE (22:45)
[2024-07-07] MEDS ORDERED: MAGNESIUM SULFATE 2 GM/50 ML BAG IV ONE (23:45)
[2024-07-07 23:48] LABS: BILIRUBIN, URINE NEGATIVE (negative); BLOOD/HGB, URINE NEGATIVE (Negative); KETONE, URINE NEGATIVE (Negative); LEUK ESTERASE, URINE MODERATE (negative); NITRITE, URINE NEGATIVE (negative)
[2024-07-07 23:51] LABS: BACTERIA, URINE 1+ /hpf (negative); CASTS, URINE NONE SEEN \\lpf; CRYSTALS, URINE NONE SEEN (0-1+); EPITHELIAL CELLS, URINE SQUAMOUS 3+ /lpf (0-1+)
[2024-07-07 23:52] LABS: COLLECTION TYPE, URINE CLEAN CATCH; REFLEX CULTURE, URINE No (No)
[2024-07-08] MEDS ORDERED: MAGNESIUM OXID400 M1 PO (02:19)
[2024-07-08] MEDS ORDERED: HYDROCODONE/ACETA 5/325 TAB PO ONE (02:30)
[2024-07-08 06:48] VITALS: BP 110/78
--- NOTE | 2024-07-08 14:18 | EKG ---
[facility] [address] [facility] [place] [address] Signed Normal sinus rhythm Normal ECG When compared with ECG of 25-OCT-2023 13:04, Vent. rate has decreased BY [address] no longer depressed in Inferior leads ST no longer depressed in Anterior leads Confirmed by Epi England MD () on 07/08/2024 2:17:42 PM Electronically Signed By: EPI ENGLAND MD 07/08/24 1418 PATIENT NAME: TIM BROOKS Electrocardiogram DATE OF : 53 PHYSICIAN: EPI ENGLAND MD REPORT #: [id number] REPORT IS CONFIDENTIAL AND NOT TO BE RELEASED WITHOUT AUTHORIZATION
== END 2024-07-08 06:30 | disposition home or self-care (01) ==
LOC: ED 21:52
PROVIDERS: Family Medicine
DX: S29.012A Strain of muscle and tendon of back wall of thorax, initial encounter (principal); S16.1XXA Strain of muscle, fascia and tendon at neck level, initial encounter; E83.42 Hypomagnesemia; I10 Essential (primary) hypertension; E11.9 Type 2 diabetes mellitus without complications; J45.909 Unspecified asthma, uncomplicated; F17.200 Nicotine dependence, unspecified, uncomplicated; Z88.0 Allergy status to penicillin; Z88.1 Allergy status to other antibiotic agents; Z88.2 Allergy status to sulfonamides; Z88.5 Allergy status to narcotic agent; Z88.8 Allergy status to other drugs, medicaments and biological substances; Z88.9 Allergy status to unspecified drugs, medicaments and biological substances
CPT/HCPCS: 36415; 70450; 70486; 72125; 72128; 73560; 80053; 81001; 83735; 84484; 85025; 93005; 93010; 96365; 96366; 96375; 99284-25; J1885; J3475

== ENCOUNTER 2024-08-28 13:51 | Emergency (ER) | payer MEDICARE, OTHER ==
[~2024-08-28] VITALS: Ht 172.7 cm; Wt 86.6 kg
[~2024-08-28 13:51] MED LIST changes: +GERI-KOT8.6 MG PO; +LORAZEPAM0.5 MG; +MAGNESIUM OXID400 M1 PO
[2024-08-28 14:28] LABS: BILIRUBIN, URINE NEGATIVE (negative); BLOOD/HGB, URINE NEGATIVE (Negative); KETONE, URINE NEGATIVE (Negative); LEUK ESTERASE, URINE MODERATE (negative); NITRITE, URINE NEGATIVE (negative)
[2024-08-28] MEDS ORDERED: SUMATRIPTAN SU100 MG PO (14:28)
[2024-08-28] MEDS ORDERED: OMEPRAZOLE40 MG PO (14:29)
[2024-08-28] MEDS ORDERED: TRULICITY3 MG/0.5 M SQ (14:29)
[2024-08-28 14:33] LABS: CRYSTALS, URINE AMORPHOUS PHOSPH 2+ (0-1+); RED BLOOD CELLS, URINE 0-1 /hpf (0-5)
[2024-08-28 14:34] LABS: BACTERIA, URINE NONE SEEN /hpf (negative); CASTS, URINE NONE SEEN \\lpf; REFLEX CULTURE, URINE No (No)
[2024-08-28 14:35] LABS: COLLECTION TYPE, URINE CLEAN CATCH
[2024-08-28 14:48] LABS: AMPHETAMINES, URINE NEGATIVE (NEGATIVE); BARBITURATES, URINE NEGATIVE (NEGATIVE); BENZODIAZEPINE, URINE NEGATIVE (NEGATIVE); BUPRENORPHINE, URINE NEGATIVE (NEGATIVE); CANNABINOID, URINE POSITIVE (NEGATIVE); COCAINE, URINE NEGATIVE (NEGATIVE); ECSTASY, URINE NEGATIVE (NEGATIVE); FENTANYL, URINE NEGATIVE (NEGATIVE); METHADONE, URINE NEGATIVE (NEGATIVE); OPIATES, URINE NEGATIVE (NEGATIVE); OXYCODONE, URINE NEGATIVE (NEGATIVE); PHENCYCLIDINE, URINE NEGATIVE (NEGATIVE)
[2024-08-28 14:51] LABS: BASOPHILS 0.8 % (0.1-1.2); EOSINOPHILS 3.2 % (0.7-5.8); HEMATOCRIT 30.8 % (34.1-44.9); HEMOGLOBIN 9.8 g/dL (11.2-15.7); LYMPHOCYTES 26.2 % (19.3-51.7); MCH 28.2 PG (25.6-32.2); MCHC 31.8 g/dL (32.2-35.5); MCV 88.8 fL (79.4-94.8); MONOCYTES 7.3 % (4.7-12.5); NEUTROPHILS 62.2 % (34.0-71.1); PLATELET COUNT 272 K/uL (182-369); RBC 3.47 M/uL (3.93-5.22)
[2024-08-28 15:09] LABS: ALBUMIN 3.2 g/dL (3.4-5.0); ALBUMIN/GLOBULIN RATIO 0.94 (1.1-2.4); ANION GAP 7.4 (7-21); BILIRUBIN, TOTAL 0.3 mg/dL (0.2-1.0); BUN/CREATININE RATIO 12.38 (6.0-28.6); CALCIUM 9.6 mg/dL (8.5-10.1); CREATININE, SERUM 1.05 mg/dL (0.55-1.02); POTASSIUM 3.4 mmol/L (3.5-5.1); PROTEIN, TOTAL 6.6 g/dL (6.4-8.2)
[2024-08-28 15:17] LABS: ACETAMINOPHEN 0 ug/mL (10-30); ALCOHOL, MEDICAL <3 ng/dL (<3); SALICYLATE 1.6 mg/dL (2.8-20.0); TSH, 3RD GENERATION 0.044 uIU/mL (0.358-3.740)
[2024-08-28] MEDS ORDERED: SENNOSIDES 1 TAB PO ONE (21:00)
[2024-08-28] MEDS ORDERED: SUCRALFATE 1 GM TAB PO ONE (21:00)
[2024-08-28] MEDS ORDERED: cefuroxime axetiL 500 MG TAB PO SCH (21:00)
[2024-08-28] MEDS ORDERED: PREGABALIN 50 MG CAP PO ONE (21:00)
[2024-08-28] MEDS ORDERED: MAGNESIUM OXIDE 400 MG TABLET PO ONE (21:00)
[2024-08-29] MEDS ORDERED: ACETAMINOPHEN 325 MG TAB PO ONE (03:45)
[2024-08-29] MEDS ORDERED: IBUPROFEN 600 MG TAB PO ONE (09:45)
[2024-08-29 12:39] LABS: CORONAVIRUS COVID-19 AG NEGATIVE (NEGATIVE)
[2024-08-29] MEDS ORDERED: DULOXETINE HCL 60 MG CAP PO SCH (14:45)
[2024-08-29] MEDS ORDERED: LORazepam 0.5 MG TAB PO PRN (14:45)
[2024-08-29] MEDS ORDERED: ONDANSETRON 4 MG TAB ODT SL ONE (14:45)
[2024-08-29] MEDS ORDERED: PREGABALIN 50 MG CAP PO SCH (14:48)
[2024-08-29] MEDS ORDERED: DULOXETINE HCL 30 MG CAP PO SCH (14:54)
[2024-08-29] MEDS ORDERED: PREGABALIN 75 MG CAP PO SCH (14:56)
[2024-08-29] MEDS ORDERED: SUCRALFATE 1 GM TAB PO PRN (15:00)
[2024-08-29] MEDS ORDERED: SUCRALFATE 1 GM TAB PO ONE (15:00)
[2024-08-29] MEDS ORDERED: ARIPiprazole 10 MG TAB PO ONE (15:30)
[2024-08-29] MEDS ORDERED: ACETAMINOPHEN 325 MG TAB PO PRN (20:30)
[2024-08-29] MEDS ORDERED: FAMOTIDINE 20 MG TAB PO SCH (21:00)
[2024-08-29] MEDS ORDERED: MAGNESIUM OXIDE 400 MG TABLET PO SCH (21:19)
[2024-08-30] MEDS ORDERED: SUMAtriptan succinate 50 MG TAB PO ONE ×2 (00:30→07:30)
[2024-08-30 03:54] LABS: CORONAVIRUS COVID-19 AG NEGATIVE (NEGATIVE)
[2024-08-30] MEDS ORDERED: ONDANSETRON 4 MG TAB ODT SL ONE ×2 (04:00→07:30)
[2024-08-30 07:39] VITALS: BP 151/84
== END 2024-08-30 07:39 | disposition short-term general hospital (02) ==
LOC: ED 13:51
PROVIDERS: Emergency Medicine; Internal Medicine
DX: R45.851 Suicidal ideations (principal); I10 Essential (primary) hypertension; E11.9 Type 2 diabetes mellitus without complications; F43.10 Post-traumatic stress disorder, unspecified; I25.2 Old myocardial infarction; J45.909 Unspecified asthma, uncomplicated; F17.200 Nicotine dependence, unspecified, uncomplicated; Z88.5 Allergy status to narcotic agent; Z88.8 Allergy status to other drugs, medicaments and biological substances; Z79.899 Other long term (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
CPT/HCPCS: 36415; 80053; 80307; 81001; 84443; 85025; 99285; A9270; G0480

== ENCOUNTER 2024-09-05 13:46 | Emergency (ER) | payer MEDICARE, OTHER ==
[~2024-09-05] VITALS: Ht 172.7 cm; Wt 98.8 kg
[~2024-09-05 13:46] MED LIST changes: +TRULICITY3 MG/0.5 M SQ
[2024-09-05] MEDS ORDERED: IBLOOD GLUCOSE TEST STRIP 1 EA TEST XX ONE (14:00)
[2024-09-05 14:13] LABS: BASOPHILS 0.9 % (0.1-1.2); EOSINOPHILS 1.9 % (0.7-5.8); HEMATOCRIT 28.8 % (34.1-44.9); HEMOGLOBIN 9.3 g/dL (11.2-15.7); LYMPHOCYTES 32.2 % (19.3-51.7); MCH 28.1 PG (25.6-32.2); MCHC 32.3 g/dL (32.2-35.5); MONOCYTES 8.6 % (4.7-12.5); NEUTROPHILS 56.2 % (34.0-71.1); PLATELET COUNT 282 K/uL (182-369); RBC 3.31 M/uL (3.93-5.22)
[2024-09-05 14:31] LABS: ALBUMIN 3.3 g/dL (3.4-5.0); ALBUMIN/GLOBULIN RATIO 0.97 (1.1-2.4); ANION GAP 3.4 (7-21); BILIRUBIN, TOTAL 0.4 mg/dL (0.2-1.0); BUN/CREATININE RATIO 21.8 (6.0-28.6); CALCIUM 9.5 mg/dL (8.5-10.1); CREATININE, SERUM 1.33 mg/dL (0.55-1.02); POTASSIUM 3.4 mmol/L (3.5-5.1); PROTEIN, TOTAL 6.7 g/dL (6.4-8.2)
[2024-09-05 16:27] LABS: BILIRUBIN, URINE NEGATIVE (negative); BLOOD/HGB, URINE NEGATIVE (Negative); KETONE, URINE NEGATIVE (Negative); LEUK ESTERASE, URINE NEGATIVE (negative); NITRITE, URINE NEGATIVE (negative); PH, URINE 5.5 (5-7)
[2024-09-05 16:33] LABS: BACTERIA, URINE NONE SEEN /hpf (negative); CASTS, URINE HYALINE 1+ \\lpf; COLLECTION TYPE, URINE CLEAN CATCH; CRYSTALS, URINE NONE SEEN (0-1+); EPITHELIAL CELLS, URINE SQUAMOUS 2+ /lpf (0-1+); RED BLOOD CELLS, URINE 0-1 /hpf (0-5); REFLEX CULTURE, URINE No (No); WHITE BLOOD CELLS, URINE 0-1 /HPF (0-5)
[2024-09-05 16:59] VITALS: BP 121/80
--- NOTE | 2024-09-05 19:11 | EKG ---
[facility] [address] [facility] [place] [address] Signed Normal sinus rhythm Normal ECG When compared with ECG of 07-JUL-2024 22:11, No significant change was found Confirmed by Krunal aPz DO ([id number]) on 09/05/2024 7:10:47 PM Electronically Signed By: KRUNAL PAZ DO 09/05/241910 PATIENT NAME: TIM BROOKS Electrocardiogram DATE OF : 53 PHYSICIAN: KRUNAL PAZ DO REPORT #: [id number] REPORT IS CONFIDENTIAL AND NOT TO BE RELEASED WITHOUT AUTHORIZATION
== END 2024-09-05 17:00 | disposition home or self-care (01) ==
LOC: ED 13:46
PROVIDERS: Emergency Medicine
DX: Z71.1 Person with feared health complaint in whom no diagnosis is made (principal); I10 Essential (primary) hypertension; E11.9 Type 2 diabetes mellitus without complications; F43.10 Post-traumatic stress disorder, unspecified; I25.2 Old myocardial infarction; Z88.5 Allergy status to narcotic agent; Z88.8 Allergy status to other drugs, medicaments and biological substances; Z79.899 Other long term (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
CPT/HCPCS: 36415; 80053; 81001; 83735; 84484; 85025; 93005; 93010; 99285

== ENCOUNTER 2024-10-29 17:23 | Emergency (ER) | payer MEDICARE, OTHER ==
[~2024-10-29] VITALS: Ht 172.7 cm; Wt 84.0 kg
[2024-10-29 21:55] LABS: BASOPHILS 0.7 % (0.1-1.2); EOSINOPHILS 0.5 % (0.7-5.8); LYMPHOCYTES 20.4 % (19.3-51.7); MCH 26.8 PG (25.6-32.2); MCHC 32.0 g/dL (32.2-35.5); MCV 83.6 fL (79.4-94.8); MONOCYTES 6.3 % (4.7-12.5); NEUTROPHILS 71.6 % (34.0-71.1); RBC 4.82 M/uL (3.93-5.22)
[2024-10-29 22:34] LABS: ALT (SGPT) 21.0 U/L (14-59); AST (SGOT) 16.0 U/L (15-37); GLOMERULAR FILTRATION RATE,EST 90.0 mL/min (>60); PROTEIN, TOTAL 7.7 g/dL (6.4-8.2); UREA NITROGEN 17.0 mg/dL (7-18)
[2024-10-29] MEDS ORDERED: FAMOTIDINE 20 MG/ 2 ML VIAL IV ONE (22:45)
[2024-10-29] MEDS ORDERED: LACTATED RINGER'S 1,000 ML IV ONE (23:00)
[2024-10-30] MEDS ORDERED: KETOROLAC TROMETHAMINE 15 MG/ML VIAL IV ONE (00:30)
[2024-10-30] MEDS ORDERED: PROCHLORPERAZINE EDISYLATE 10 MG/2 ML VIAL IV ONE (00:30)
[2024-10-30 00:38] LABS: BLOOD/HGB, URINE NEGATIVE (Negative); KETONE, URINE NEGATIVE (Negative); LEUK ESTERASE, URINE TRACE (negative); NITRITE, URINE NEGATIVE (negative)
[2024-10-30 00:42] LABS: EPITHELIAL CELLS, URINE SQUAMOUS 3+ /lpf (0-1+)
[2024-10-30 00:43] LABS: CRYSTALS, URINE AMORPHOUS URATES 1+ (0-1+)
[2024-10-30 00:44] LABS: BACTERIA, URINE 2+ /hpf (negative); CASTS, URINE NONE SEEN \\lpf; REFLEX CULTURE, URINE No (No)
[2024-10-30] MEDS ORDERED: ACETAMINOPHEN 500 MG TAB PO ONE (04:15)
[2024-10-30 07:09] VITALS: BP 148/88
== END 2024-10-30 07:13 | disposition home or self-care (01) ==
LOC: ED 17:23
PROVIDERS: Internal Medicine
DX: G43.909 Migraine, unspecified, not intractable, without status migrainosus (principal); J45.909 Unspecified asthma, uncomplicated; I10 Essential (primary) hypertension; E11.9 Type 2 diabetes mellitus without complications; I25.2 Old myocardial infarction; I25.10 Atherosclerotic heart disease of native coronary artery without angina pectoris; F17.200 Nicotine dependence, unspecified, uncomplicated; Z88.5 Allergy status to narcotic agent; Z88.8 Allergy status to other drugs, medicaments and biological substances; Z79.899 Other long term (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
CPT/HCPCS: 36415; 71045; 72192; 80053; 81001; 83690; 83735; 84484; 85025; 96361; 96374; 96375; 99284-25; A9270; J0780; J1200; J1885; J2405; J7121